=== PATIENT | female | born 1950 | race Caucasian/White ===

== ENCOUNTER → 2017-06-28 08:54 | Outpatient (POV) | payer MEDICARE, OTHER, SELFPAY | PROVIDERS: Visit Provider Physician Assistant | DX: Z00.00 Encounter for general adult medical examination without abnormal findings (principal) ==

== ENCOUNTER → 2017-09-27 10:02 | Outpatient (POV) | payer MEDICARE, OTHER, SELFPAY | PROVIDERS: Family Provider Internal Medicine; Visit Provider Physician Assistant | DX: Z00.00 Encounter for general adult medical examination without abnormal findings (principal) ==

== ENCOUNTER → 2017-11-30 09:39 | Outpatient (CLI) | payer MEDICARE, OTHER, SELFPAY ==
--- NOTE | 2017-11-30 09:49 | CT_ITS ---
CT abdomen w con CLINICAL INDICATION: Follow-up pancreatic lesion ITS.REASON: FU PANCREATIC CYST,EPIGASTIC PAIN ORDERING PHYSICIAN: Farooq Lee PATIENT AGE: 67 years COMPARISON: 04/23/2017 TECHNIQUE: Axial images obtained with sagittal and coronal reformats. All CT scans at the facility use one or more dose reduction, viz: automated exposure control; ma/kV adjustment per patient size (including targeted exams where dose is matched to indication; i.e. head); or iterative reconstruction technique. PROCEDURE: Oral Contrast: None IV Contrast: 75 mL's of Isovue-370. FINDINGS: Lung bases are clear. Prior cholecystectomy. No focal liver lesion. The spleen, adrenal glands, and kidneys have an unremarkable appearance. There is mild prominence of the common bile duct measuring up to 9 mm not significant changed and may be secondary to the previous cholecystectomy. There is a stable isodensity in the pancreas at the junction of the pancreatic tail and body which measures 6 x 9 mm unchanged from previous exam. No new lesions are evident. No intestinal obstruction or free air. No abdominal mass or abnormal fluid collection. There are some small lymph nodes in the right lower quadrant are stable. IMPRESSION: Stable CT appearance of the abdomen no change in the small cystic lesion of the pancreas probably benign
== END ==
PROVIDERS: Family Provider Internal Medicine; PCP Internal Medicine; Visit Provider Internal Medicine
DX: K86.2 Cyst of pancreas (principal); R10.13 Epigastric pain
CPT/HCPCS: 74160; Q9967

== ENCOUNTER → 2018-01-18 10:09 | Outpatient (CLI) | payer MEDICARE, OTHER, SELFPAY ==
--- NOTE | 2018-01-18 10:16 | XR_ITS ---
XR chest 2V HISTORY: Chest pain ITS.REASON: THORACIC BACK PAIN ORDERING PHYSICIAN: Farooq Lee PATIENT AGE: 67 years COMPARISON: 08/01/2012 FINDINGS: The cardiomediastinal silhouette and pulmonary vascularity are within normal limits. The lungs are clear without infiltrates, suspicious nodules, or pleural effusions. No acute bony abnormalities. There is evidence of old granulomatous disease IMPRESSION: No acute finding
--- NOTE | 2018-01-18 10:16 | XR_ITS ---
EXAM: XR thoracic spine 3V HISTORY: ITS.REASON: THORACIC BACK PAIN Comparison: 08/01/2012 FINDINGS: There is mild lower thoracic scoliosis convex left. Mild degenerative disc disease is present in the mid and upper thoracic spine. No acute fracture or dislocation is evident. No lytic or blastic change. IMPRESSION: Degenerative changes mid and upper thoracic spine with minimal dextroscoliosis
== END ==
PROVIDERS: PCP Internal Medicine; Visit Provider Internal Medicine
DX: M54.6 Pain in thoracic spine (principal)
CPT/HCPCS: 71046; 72072

== ENCOUNTER → 2018-02-21 08:56 | Outpatient (CLI) | payer MEDICARE, OTHER, SELFPAY ==
--- NOTE | 2018-02-21 09:11 | MR_ITS ---
MR abdomen wo/w con HISTORY: Follow-up pancreatic mass ITS.REASON: MASS OF PANCREAS ORDERING PHYSICIAN: Alejandra Coburn PATIENT AGE: 67 years Comparison: 11/30/2017, 04/23/2017, 01/06/2016 TECHNIQUE: Standard multiplanar multiecho sequences are performed without and with gadolinium enhancement or. MRCP also performed FINDINGS: There is a cystic lesion once again noted in the body of the pancreas. This is well-circumscribed and measures 8 x 6 mm. This does not appear to communicate with the pancreatic duct. The pancreatic duct is not dilated. This lesion does not enhance and demonstrates cystic characteristics on all imaging sequences. No other significant anomalies are evident. There has been a prior cholecystectomy. The common bile duct is slightly prominent at 10 mm and may be due to post cholecystectomy ectasia. MRCP images show mild prominence of the intra and extrahepatic biliary tree. The distal common bile duct tapers normally with no internal filling defects evident. The pancreatic duct is not dilated. IMPRESSION: 1. Benign-appearing 8 x 6 mm cystic lesion of the pancreas not significantly changed dating back to 01/06/2016. 2. Status post cholecystectomy with ectasia of the intra and nectar hepatic biliary radicles. No common bile duct lesions evident.
[2018-02-21 09:24] LABS: Blood Urea Nitrogen 11 mg/dL (7-18); Creatinine,Serum 1.18 mg/dL (0.55-1.02); Estimated Glomerular Filt Rate 46 ml/min (>60); GFR (African American) 55 ML/MIN (>60)
--- NOTE | 2018-02-21 11:41 | HMH.ITSHM ---
BENZAPRIL PRILOSEC BABY ASPIRIN
== END ==
PROVIDERS: Family Provider Internal Medicine; PCP Internal Medicine; Visit Provider Nurse Practitioner Acute Care
DX: R19.09 Other intra-abdominal and pelvic swelling, mass and lump (principal)
CPT/HCPCS: 36415; 74183; 82565; 84520; A9576

== ENCOUNTER → 2018-02-28 13:15 | Outpatient (CLI) | payer MEDICARE, OTHER, SELFPAY ==
[2018-02-28 14:46] LABS: Basophils % 0.4 % (0.1-2.0); Eosinophils # 0.1 K/mm3 (0.0-0.4); Eosinophils % 1.5 % (0.1-12.0); Hematocrit 39.6 % (37.0-47.0); Hemoglobin 13.3 g/dL (12.2-16.2); Lymphocytes # 1.9 K/mm3 (0.7-4.5); Lymphocytes % 24.4 K/mm3 (10-50); Mean Corpuscular HGB Conc 33.6 g/dL (31.8-35.4); Mean Corpuscular Hemoglobin 30.3 pg (27.0-31.2); Mean Corpuscular Volume 90.1 fl (81-99); Mean Platelet Volume 7.6 fl (7.4-10.4); Monocytes # 0.4 K/mm3 (0.1-1.0); Monocytes % 5.4 % (1.7-9.3); Neutrophils # 5.3 K/mm3 (1.8-7.8); Neutrophils % 68.2 % (37.0-80.0); Platelet Count 204 K/mm3 (142-424); Red Blood Count 4.39 M/mm3 (4.20-5.40); White Blood Count 7.7 K/mm3 (4.8-10.8)
[2018-02-28 16:27] LABS: Alanine Aminotransferase 17 U/L (12-78); Albumin Level 4.5 gm/dL (3.4-5.0); Albumin/Globulin Ratio 1.6 (1.1-1.8); Alkaline Phosphatase 61 U/L (46-116); Amylase 88 U/L (25-125); Anion Gap 13.2 mEq/L (5-15); Aspartate Amino Transferase 12 U/L (15-37); Bilirubin,Total 0.7 mg/dL (0.2-1.0); Blood Urea Nitrogen 14 mg/dL (7-18); Calcium 9.5 mg/dL (8.5-10.1); Carbon Dioxide 28 mmol/L (21.0-32.0); Chloride 100 mmol/L (98-107); Creatinine,Serum 1.17 mg/dL (0.55-1.02); Estimated Glomerular Filt Rate 46 ml/min (>60); GFR (African American) 56 ML/MIN (>60); Globulin 2.9 gm/dl (1.3-3.2); Glucose 83 mg/dL (74-106); Lipase 214 u/L (73-393); Potassium 4.2 mmoL/L (3.5-5.1); Sodium 137 mmol/L (136-145); Total Protein,Serum 7.4 gm/dL (6.4-8.2)
[2018-03-04 10:03] LABS: CA 19-9 1 U/mL (0-35)
== END ==
PROVIDERS: PCP Internal Medicine; Visit Provider Nurse Practitioner Acute Care
DX: R19.09 Other intra-abdominal and pelvic swelling, mass and lump (principal); Z80.0 Family history of malignant neoplasm of digestive organs
CPT/HCPCS: 36415; 80053; 82150; 83690; 85025; 86316

== ENCOUNTER → 2018-05-09 09:48 | Outpatient (POV) | payer MEDICARE, OTHER, SELFPAY ==
[2018-05-09 14:05] LABS: Basophils % 0.5 % (0.1-2.0); Eosinophils # 0.1 K/mm3 (0.0-0.4); Eosinophils % 1.1 % (0.1-12.0); Hematocrit 40.9 % (37.0-47.0); Hemoglobin 13.3 g/dL (12.2-16.2); Lymphocytes # 1.4 K/mm3 (0.7-4.5); Lymphocytes % 21.8 % (10-50); Mean Corpuscular HGB Conc 32.4 g/dL (31.8-35.4); Mean Corpuscular Hemoglobin 28.5 pg (27.0-31.2); Mean Corpuscular Volume 87.8 fl (81-99); Mean Platelet Volume 7.9 fl (7.4-10.4); Monocytes # 0.3 K/mm3 (0.1-1.0); Monocytes % 4.6 % (1.7-9.3); Neutrophils # 4.6 K/mm3 (1.8-7.8); Platelet Count 234 K/mm3 (142-424); Red Blood Count 4.66 M/mm3 (4.20-5.40); Red Cell Distribution Width 12.6 % (11.5-17.5); White Blood Count 6.4 K/mm3 (4.8-10.8)
[2018-05-09 14:42] LABS: Alanine Aminotransferase 24 U/L (12-78); Albumin Level 4.4 gm/dL (3.4-5.0); Albumin/Globulin Ratio 1.5 (1.1-1.8); Alkaline Phosphatase 61 U/L (46-116); Amylase 83 U/L (25-115); Anion Gap 14.1 mEq/L (5-15); Aspartate Amino Transferase 14 U/L (15-37); Bilirubin,Total 0.7 mg/dL (0.2-1.0); Blood Urea Nitrogen 11 mg/dL (7-18); Calcium 9.5 mg/dL (8.5-10.1); Carbon Dioxide 29 mmol/L (21.0-32.0); Chloride 99 mmol/L (98-107); Creatinine,Serum 1.09 mg/dL (0.55-1.02); Estimated Glomerular Filt Rate 50 ml/min (>60); GFR (African American) 60 ML/MIN (>60); Glucose 92 mg/dL (74-106); Lipase 183 u/L (73-393); Potassium 4.1 mmoL/L (3.5-5.1); Sodium 138 mmol/L (136-145); Total Protein,Serum 7.4 gm/dL (6.4-8.2)
== END ==
PROVIDERS: Visit Provider Nurse Practitioner Acute Care
DX: R10.11 Right upper quadrant pain (principal)
CPT/HCPCS: 36415; 80053; 82150; 83690; 85025

== ENCOUNTER → 2018-05-13 07:52 | Outpatient (CLI) | payer MEDICARE, OTHER, SELFPAY ==
--- NOTE | 2018-05-13 07:55 | US_ITS ---
US abdomen limited History:Right upper quadrant pain Ordering Physician:Alejandra Coburn Patient Age: 68 years Comparison:02/21/2018 Findings: Pancreas:Unremarkable. No obvious mass or abnormal fluid collection. No ductal dilatation. Cystic pancreatic lesion seen on recent MRI is not well demonstrated likely due to technical factors Liver:No focal liver lesions demonstrated. Homogeneous echogenicity. No intrahepatic biliary ductal dilatation evident Right Kidney:Unremarkable. Normal size and echogenicity. No hydronephrosis Gallbladder:There has been a prior cholecystectomy. The common bile duct is somewhat prominent at 9 mm having a similar appearance on MRI of 02/21/2018 Impression: 1. Prior cholecystectomy with mildly prominent common bile duct. 2. Otherwise negative right upper quadrant ultrasound
== END ==
PROVIDERS: PCP Nurse Practitioner Acute Care; Visit Provider Nurse Practitioner Acute Care
DX: R10.13 Epigastric pain (principal)
CPT/HCPCS: 76705

== ENCOUNTER → 2018-06-27 14:44 | Outpatient (POV) | payer MEDICARE, OTHER, SELFPAY | PROVIDERS: Visit Provider Nurse Practitioner Acute Care | DX: Z00.00 Encounter for general adult medical examination without abnormal findings (principal) ==

== ENCOUNTER → 2018-08-04 15:30 | Outpatient (CLI) | payer MEDICARE, OTHER, SELFPAY ==
--- NOTE | 2018-08-04 15:34 | MM_ITS ---
MM Dig screening mamm BI w/CAD CAD Screening COMPARISON: Digital mammograms with CAD 12/23/2016 and 11/25/2015 INDICATION: There is no personal or family history of breast cancer. There has been previous biopsy left breast for benign disease. TECHNIQUE: Standard CC and MLO images were obtained. R2 CAD reviewed. FINDINGS: Moderate diffuse scattered fibroglandular densities are seen throughout both breasts. There is a biopsy clip left breast there is a mole marker left breast.. There is no suspicious lesion and there are no suspicious microcalcifications. IMPRESSION: Fibrofatty parenchyma no suspicious lesion seen BI-RADS Category: 2 Benign Finding(s) RECOMMENDED FOLLOW-UP: 1YR - 1 YEAR FOLLOW-UP (A letter has been sent to the patient regarding results of the study.)
== END ==
PROVIDERS: PCP Internal Medicine; Visit Provider Internal Medicine
DX: Z12.31 Encounter for screening mammogram for malignant neoplasm of breast (principal)
CPT/HCPCS: 77067

== ENCOUNTER → 2018-10-25 14:07 | Outpatient (POV) | payer MEDICARE, OTHER, SELFPAY | PROVIDERS: Visit Provider Dermatology | DX: Z00.00 Encounter for general adult medical examination without abnormal findings (principal) ==

== ENCOUNTER → 2019-08-07 08:41 | Outpatient (POV) | payer MEDICARE, OTHER, SELFPAY | PROVIDERS: PCP Internal Medicine; Visit Provider Nurse Practitioner Family | DX: Z00.00 Encounter for general adult medical examination without abnormal findings (principal) ==

== ENCOUNTER → 2019-08-07 09:45 | Outpatient (CLI) | payer MEDICARE, OTHER, SELFPAY ==
--- NOTE | 2019-08-07 09:48 | MM_ITS ---
PROCEDURE: MM DIG SCREENING MAMM BI W/CAD DIGITAL BREAST TOMOSYNTHESIS INCLUDED Patient Age:69Y CLINICAL INDICATION: SCREENING no hormones. No new complaints noncontributory family history COMPARISON: [facility] DIGITAL MAMM-SCREEN BILATERAL from 09/22/2011 DMDXUAVL DIG MAMM-DX UNI ADD VIEWS-LT from 10/06/2011 DMDXUL DIG MAMM-DX UNILATERAL-LT from 10/21/2011 [facility] DIGITAL MAMM-SCREEN BILATERAL from 09/28/2012 [facility] DIG MAMM-SCREEN PARVEZ from 11/01/2013 DMSB DIG MAMM-SCREEN PARVEZ from 11/23/2014 [facility] DIG MAMM-SCREEN PARVEZ from 11/25/2015 DMDXUAVR DIG MAMM-DX UNI ADD VIEWS-RT from 12/03/2015 [facility] DIG MAMM-SCREEN PARVEZ W/CAD from 12/23/2016 [facility] MM Dig screening mamm BI w/CAD from 08/04/2018 TECHNIQUE: Standard CC and MLO images were obtained. R2 CAD reviewed. Digital breast tomosynthesis included FINDINGS: Right breast is stable with no new areas of concern. Left breast: Previous percutaneous biopsy with small metallic marker at the medial inferior left breast associated with some minimal scarring Moving medial and slight anterior from metallic biopsy there is a longstanding ovoid density. It appears overall stable size. Its margins are not well seen on the standard CC view but but better defined on the CC tomosynthesis view appear more compatible with a previous study; overall compatible and adequate stable since previous studies from 2015, 2014.. Follow-up would be a adequate . Other areas of minimal nodularity in the left breast laterally appear similar to studies dating back to 2014 and and I believe can be followed safely followed safely. I would encourage in emphasize a follow-up bilateral mammogram in 1 year IMPRESSION: No new findings of significant concern. Bilateral follow-up 1 year would be recommended and should be encouraged/emphasized Stable right breast but no new features of concern.. Left breast: Previous biopsy medial breast with areas of nodularity similar to studies dating back to 2014 and 2015 BI-RAD Category: FOLLOW-UP: (A letter has been sent to the patient regarding results of the study.) Dictated by: Gordon Dunlap MD 08/10/2019 22:36 Electronically signed by Gordon Dunlap MD in [place] 08/10/2019 22:36
[2019-08-07 13:58] LABS: Alanine Aminotransferase 12 U/L (12-78); Albumin Level 4.5 g/dl (3.5-5.0); Albumin/Globulin Ratio 1.7 (1.1-1.8); Alkaline Phosphatase 58 U/L (38-126); Amylase 115 U/L (30-110); Anion Gap 11.5 mEq/L (5-15); Aspartate Amino Transferase 24 U/L (14-36); Bilirubin,Total 0.5 mg/dl (0.2-1.3); Blood Urea Nitrogen 15 mg/dl (7-17); Carbon Dioxide 30 mmol/L (22.0-30.0); Chloride 97 mmol/L (98-107); Estimated Glomerular Filt Rate 55 ml/min (>60); GFR (African American) 67 ML/MIN (>60); Globulin 2.6 g/dL (1.3-3.2); Glucose 89 mg/dl (74-100); Lipase 223 U/L (23-300); Potassium 4.5 mmoL/L (3.5-5.1); Sodium 134 mmol/L (136-145); Total Protein,Serum 7.1 g/dl (6.3-8.2)
== END ==
PROVIDERS: Nurse Practitioner Family; PCP Internal Medicine; Visit Provider Internal Medicine
DX: Z12.31 Encounter for screening mammogram for malignant neoplasm of breast (principal); R19.09 Other intra-abdominal and pelvic swelling, mass and lump; R10.13 Epigastric pain
CPT/HCPCS: 36415; 77063; 77067; 80053; 82150; 83690

== ENCOUNTER → 2019-08-11 09:39 | Outpatient (CLI) | payer MEDICARE, OTHER, SELFPAY ==
--- NOTE | 2019-08-11 09:42 | MR_ITS ---
PROCEDURE: MR ABDOMEN WO/W CON CLINICAL INDICATION: FHX PANCREATIC CANCER, MASS OF PANCREAS Follow-up pancreatic lesion. Family history of pancreatic cancer COMPARISON: ABDW CT abdomen w con from 11/30/2017 ABDWW MR abdomen wo/w con from 02/21/2018 TECHNIQUE: Routine multiplanar multi echo sequences are performed without and with gadolinium enhancement. FINDINGS: There is once again noted a benign-appearing cystic lesion at the junction of the body and the tail the pancreas measuring approximately 8 mm not significantly changed. No pancreatic ductal dilatation is evident. The pancreas has an otherwise unremarkable appearance. There is a small duodenal diverticulum projecting toward the head of the pancreas. There has been a prior cholecystectomy with ectasia of the common bile duct measuring up to 8 mm not significantly changed. There is mild degree of motion artifact which does somewhat obscure fine detail. The liver, spleen, adrenal glands, and kidneys have an unremarkable appearance. IMPRESSION: No change in the benign-appearing cystic lesion of the junction of the body and tail the pancreas at 8 mm consistent with a benign-appearing pancreatic cyst. Prior cholecystectomy with biliary ectasia not significantly changed Dictated by: Marques Corado MD 08/15/2019 08:23 Electronically signed by Marques Corado MD in [place] 08/15/2019 08:23
== END ==
PROVIDERS: PCP Internal Medicine; Visit Provider Nurse Practitioner Family
DX: R10.13 Epigastric pain (principal); R19.09 Other intra-abdominal and pelvic swelling, mass and lump; Z80.0 Family history of malignant neoplasm of digestive organs
CPT/HCPCS: 74183; A9576

== ENCOUNTER 2020-02-02 10:18 | Emergency (ER) | payer MEDICARE, OTHER, SELFPAY ==
[2020-02-02 10:19] VITALS: BP 187/89; PULSE 88; RESP 16; TEMP 36.6; O2SAT 99; BMI 21.7
--- NOTE | 2020-02-02 10:33 | HMH.EDGENADL ---
ED Disposition Clinical Impression: Right lower quadrant abdominal pain Urinary tract infection Qualifiers: Urinary tract infection type: acute pyelonephritis Qualified Code(s): N10 - Acute pyelonephritis Disposition: Home, Self-Care Condition on Discharge: Good Instructions: DI for Urinary Tract Infection (UTI), DI for Abdominal Pain-Adult Additional Instructions: Omnicef as prescribed. Tylenol or ibuprofen for pain. Additional instructions for URINARY TRACT INFECTION: See your physician in 2-3 days for follow up and culture results. Return immediately if you have an uncontrollable fever greater than 102 degrees, severe back or abdominal pain, inability to urinate, or repetitive vomiting. Additional instructions for ABDOMINAL PAIN: See your physician as soon as possible for further evaluation. Return immediately if worsening abdominal pain, vomiting, shortness of breath, fever, vomiting of blood or abdominal distention. Prescriptions: Cefdinir [Omnicef 300mg Capsule] 300 mg PO BID #20 cap Prescription Printed Referrals: Farooq Lee [Primary Care Provider] - - Critical Care Critical Care Time: No Attestation: On , the high probability of a clinically significant, sudden or life threatening deterioration of the following system(s) required my full and direct attention, intervention and personal management. The time I documented below is in addition to time spent performing reported procedures but includes the following listed in this critical care notation. Medical Decision Making - Medical Records Medical records reviewed: Yes: I reviewed the patient's medical records. - Med Inquiry Pt receiving controlled substance: No Vital Signs: 02/02/20 10:19 02/02/20 10:49 02/02/20 11:51 Temperature 98 F Temperature Source Oral Pulse Rate [Left Radial] 88 78 69 Respiratory Rate 16 Blood Pressure [Right Arm] 187/89 H 185/69 H 190/72 H Blood Pressure Mean [Right Arm] 121 107 111 Blood Pressure Source [Right Arm] Automatic Cuff Blood Pressure Position [Right Arm] Sitting Supine 02 Sat by Pulse Oximetry 99 98 99 Oxygen Delivery Method Room Air Room Air Room Air - Lab Data Lab results reviewed: Yes: I reviewed the patient's lab results. Lab Results 02/02/20 10:20: Urine Color Yellow, Urine Appearance Clear, Urine pH 7.0, Ur Specific [place] 1.010, Urine Protein Negative, Urine Glucose (UA) Negative, Urine Ketones Negative, Urine Blood Trace-i, Urine Nitrate Negative, Urine Bilirubin Negative, Urine Urobilinogen 0.2, Ur Leukocyte Esterase 1+ A, Urine RBC 3-5, Urine WBC 10-20, Ur Squamous Epith Cells 5-10, Ur Transition Epith Cell 5-10, Urine Bacteria Trace 02/02/20 10:45: WBC 7.1, RBC 4.42, Hgb 13.6, Hct 39.5, MCV 89.4, MCH 30.7, MCHC 34.3, RDW 13.3, Plt Count 172, MPV 8.1, Neut % (Auto) 73.4, Lymph % (Auto) 19.5, [place] % (Auto) 5.5, Eos % (Auto) 0.8, Baso % (Auto) 0.8, Neut # (Auto) 5.2, Lymph # (Auto) 1.4, [place] # (Auto) 0.4, Eos # (Auto) 0.1, Baso # (Auto) 0.1 02/02/20 10:45: Sodium 136, Potassium 4.4, Chloride 98, Carbon Dioxide 29, Anion Gap 13.4, BUN 14, Creatinine 1.10 H, Estimated Creat Clear 43, Estimated GFR 49 L, Est GFR ( Amer) 60, Glucose 109 H, Calcium 10.1, Total Bilirubin 0.9, AST 39 H, ALT 19, Alkaline Phosphatase 64, Total Protein 7.6, Albumin 4.8, Globulin 2.8, Albumin/Globulin Ratio 1.7, Lipase 113 Result diagrams: 02/02/20 10:45 02/02/20 10:45 Orders (Tests/Meds): ED MEDICATIONS Generic Name Dose Route Start Last Admin Trade Name Gunnar PRN Reason Stop Dose Admin Ceftriaxone Sodium 1 gm/ 50 mls @ 100 mls/hr 02/02/20 11:28 02/02/20 11:32 Sodium Chloride IV 02/02/20 11:57 100 mls/hr ONCE ONE Administration Protocol ORDERS Category Date Time Status Urine Culture Stat Micro 02/02/20 10:20 Received - CT Data CT Scan: Abdomen, Pelvis Time Received: 11:[address] Reviewed: Yes: I have viewed the radiologist's interpretation Findings
[2020-02-02 10:34] VITALS: BMI 21.7
[2020-02-02 10:42] LABS: Microscopic, Urine URINE MICROSCOPIC (MICROSCOPIC)
[2020-02-02 10:44] LABS: Appearance,Urine CLEAR (Clear); Bilirubin,Urine Negative (Negative); Blood, Urine TRACE-I (Negative); Color,Urine YELLOW (Yellow); Glucose,Urine (UA) Negative (Negative); Ketones,Urine Negative (Negative); Leukocyte Esterase,Urine 1+ (Negative); Nitrate,Urine Negative (Negative); Protein,Urine Negative (Negative); Urobilinogen,Urine 0.2 EU/dl (0.2)
--- NOTE | 2020-02-02 10:45 | CT_ITS ---
PROCEDURE: CT ABDOMEN PELVIS WO CON CLINICAL INDICATION: Right flank pain for 2 days COMPARISON: CT ABDW CT abdomen w con from 11/30/2017 TECHNIQUE: Axial images obtained with sagittal and coronal reformats. All CT scans at the facility use one or more dose reduction, viz: automated exposure control, ma/kV adjustment per patient size (including targeted exams where dose is matched to indication, i.e. head), or iterative reconstruction technique. FINDINGS: Lower thorax: The lower lung metcalf are clear and there is no pleural fluid. Cardiac size is normal. ABDOMEN: Liver: No masses or biliary dilatation. Gallbladder: Post cholecystectomy Pancreas: No masses or peripancreatic fluid collections. Spleen: Spleen is normal in size with a couple of calcified granulomata noted. Adrenals: unremarkable Kidneys/ureters: The kidneys are normal in size uropathy of either kidney. There are no calculi in either kidney. The ureters are difficult to follow into the pelvis due to the lack of IV contrast and large amount of stool. There is a calculus in the right mid pelvis measuring 6 mm likely a phlebolith. ABDOMEN & PELVIS: Stomach bowel: The stomach and small bowel appear grossly normal. There is large amount stool throughout the colon especially transverse colon descending and sigmoid colon and rectum. Peritoneum: No abnormal fluid collections. No obvious inflammatory changes. No free air. Lymph nodes: No enlarged lymph nodes apparent. Vasculature: There is scattered arteriosclerotic calcification of the abdominal aorta and proximal right common iliac artery but there is no aneurysm. Bones: No acute fracture PELVIS: Reproductive: The uterus is normal size and in the midline. There are tiny phleboliths in both sides of the uterus. Bladder: Nondistended. No obvious stones or masses. There is no free Appendix: There are no findings to suggest appendicitis. IMPRESSION: Findings of moderate constipation, no definite renal or ureteral calculi and there is no obstructive uropathy of either kidney Dictated by: Dr. Jason Alonzo MD 02/02/2020 11:31 Dr. Jason Alonzo MD in [place] 02/02/2020 11:31
[2020-02-02 10:49] VITALS: BP 185/69; PULSE 78; O2SAT 98
[2020-02-02 10:54] LABS: Bacteria,Urine Trace /lpf
--- NOTE | 2020-02-02 11:02 | PC.NURSE ---
pt going for CT
[2020-02-02 11:22] LABS: Chloride 98 mmol/L (98-107); Potassium 4.4 mmoL/L (3.5-5.1); Sodium 136 mmol/L (136-145)
[2020-02-02 11:25] LABS: Alanine Aminotransferase 19 U/L (12-78); Albumin Level 4.8 g/dl (3.5-5.0); Albumin/Globulin Ratio 1.7 (1.1-1.8); Alkaline Phosphatase 64 U/L (38-126); Anion Gap 13.4 mEq/L (5-15); Aspartate Amino Transferase 39 U/L (14-36); Bilirubin,Total 0.9 mg/dl (0.2-1.3); Blood Urea Nitrogen 14 mg/dl (7-17); Calcium 10.1 mg/dl (8.4-10.2); Carbon Dioxide 29 mmol/L (22.0-30.0); Creatinine Clearance Estimated 43 mL/min (50-200); Estimated Glomerular Filt Rate 49 ml/min (>60); GFR (African American) 60 ML/MIN (>60); Globulin 2.8 g/dL (1.3-3.2); Glucose 109 mg/dl (74-100); Lipase 113 U/L (23-300); Total Protein,Serum 7.6 g/dl (6.3-8.2)
[2020-02-02 11:26] LABS: Basophils # 0.1 K/mm3 (0-0.2); Basophils % 0.8 % (0.1-2.0); Eosinophils # 0.1 K/mm3 (0.0-0.4); Eosinophils % 0.8 % (0.1-12.0); Hematocrit 39.5 % (37.0-47.0); Hemoglobin 13.6 g/dL (12.2-16.2); Lymphocytes # 1.4 K/mm3 (0.7-4.5); Lymphocytes % 19.5 % (10-50); Mean Corpuscular HGB Conc 34.3 g/dL (31.8-35.4); Mean Corpuscular Hemoglobin 30.7 pg (27.0-31.2); Mean Corpuscular Volume 89.4 fl (81-99); Mean Platelet Volume 8.1 fl (7.4-10.4); Monocytes # 0.4 K/mm3 (0.1-1.0); Monocytes % 5.5 % (1.7-9.3); Neutrophils # 5.2 K/mm3 (1.8-7.8); Neutrophils % 73.4 % (37.0-80.0); Platelet Count 172 K/mm3 (142-424); Red Blood Count 4.42 M/mm3 (4.20-5.40); Red Cell Distribution Width 13.3 % (11.5-17.5); White Blood Count 7.1 K/mm3 (4.8-10.8)
[2020-02-02 11:51] VITALS: BP 190/72; PULSE 69; O2SAT 99
[2020-02-02 11:59] VITALS: BP 180/79; PULSE 80; RESP 18; TEMP 36.7; O2SAT 100
== END 2020-02-02 12:03 | disposition home or self-care (01) ==
PROVIDERS: Emergency Provider Emergency Medicine; PCP Internal Medicine
DX: N10 Acute pyelonephritis (principal); K59.00 Constipation, unspecified; I10 Essential (primary) hypertension; Z90.49 Acquired absence of other specified parts of digestive tract; Z90.09 Acquired absence of other part of head and neck; Z79.899 Other long term (current) drug therapy
CPT/HCPCS: 74176; 80053; 81001; 83690; 85025; 87086; 87088; 87186; 96367; 99284

== ENCOUNTER → 2020-02-05 09:37 | Outpatient (POV) | payer MEDICARE, OTHER, SELFPAY | PROVIDERS: Visit Provider Nurse Practitioner Family | DX: Z00.00 Encounter for general adult medical examination without abnormal findings (principal) ==

== ENCOUNTER → 2020-07-08 09:31 | Outpatient (POV) | payer MEDICARE, OTHER, SELFPAY | PROVIDERS: Visit Provider Nurse Practitioner Family | DX: Z00.00 Encounter for general adult medical examination without abnormal findings (principal) ==

== ENCOUNTER → 2020-09-10 10:08 | Outpatient (POV) | payer MEDICARE, OTHER, SELFPAY | PROVIDERS: Visit Provider Dermatology | DX: Z00.00 Encounter for general adult medical examination without abnormal findings (principal) ==

== ENCOUNTER → 2020-12-24 10:51 | Outpatient (POV) | payer MEDICARE, OTHER, SELFPAY | PROVIDERS: Visit Provider Dermatology | DX: Z00.00 Encounter for general adult medical examination without abnormal findings (principal) ==

== ENCOUNTER → 2021-05-19 15:06 | Outpatient (CLI) | payer MEDICARE, OTHER, SELFPAY ==
[2021-05-19 16:28] LABS: Strep Scrn Group A (Rapid) Negative (Negative)
== END ==
PROVIDERS: PCP Internal Medicine; Visit Provider Internal Medicine
DX: Z20.822 Contact with and (suspected) exposure to COVID-19 (principal)
CPT/HCPCS: 87430; C9803; U0003; U0005

== ENCOUNTER → 2021-05-26 16:13 | Outpatient (CLI) | payer MEDICARE, OTHER, SELFPAY ==
[2021-05-26 17:25] LABS: Alanine Aminotransferase 15 U/L (12-78); Albumin Level 4.5 g/dl (3.5-5.0); Alkaline Phosphatase 72 U/L (38-126); Anion Gap 13.3 mEq/L (5-15); Aspartate Amino Transferase 28 U/L (14-36); Bilirubin,Total 0.4 mg/dl (0.2-1.3); Blood Urea Nitrogen 10 mg/dl (7-17); Calcium 9.7 mg/dl (8.4-10.2); Carbon Dioxide 33 mmol/L (22.0-30.0); Chloride 93 mmol/L (98-107); Chol/HDL Ratio 2.3 (1-3.5); Cholesterol 166 mg/dl (140-200); Estimated Glomerular Filt Rate 62 ml/min (>60); GFR (African American) 75 ML/MIN (>60); Globulin 2.3 g/dL (1.3-3.2); Glucose 88 mg/dl (74-100); HDL Cholesterol 73 mg/dl (40-60); Potassium 4.3 mmoL/L (3.5-5.1); Sodium 135 mmol/L (136-145); Total Protein,Serum 6.8 g/dl (6.3-8.2); Triglycerides 84 mg/dl (30-150); VLDL Cholesterol 17 mg/dL (0-40)
[2021-05-26 17:36] LABS: Direct LDL Cholesterol 68.67 mg/dL (100-129)
== END ==
PROVIDERS: Visit Provider Internal Medicine
DX: I10 Essential (primary) hypertension (principal); E78.5 Hyperlipidemia, unspecified
CPT/HCPCS: 80053; 80061

== ENCOUNTER → 2021-11-24 20:50 | Outpatient (CLI) | payer MEDICARE, OTHER, SELFPAY ==
[2021-11-24 21:04] LABS: Basophils % 0.6 % (0.1-2.0); Eosinophils # 0.1 K/mm3 (0.0-0.4); Eosinophils % 2.5 % (0.1-12.0); Hemoglobin 13.2 g/dL (12.2-16.2); Lymphocytes # 1.5 K/mm3 (0.7-4.5); Lymphocytes % 25.9 % (10-50); Mean Corpuscular HGB Conc 34.7 g/dL (31.8-35.4); Mean Corpuscular Hemoglobin 30.3 pg (27.0-31.2); Mean Corpuscular Volume 87.4 fl (81-99); Mean Platelet Volume 10.1 fl (7.4-10.4); Monocytes # 0.4 K/mm3 (0.1-1.0); Monocytes % 7.4 % (1.7-9.3); Neutrophils # 3.6 K/mm3 (1.8-7.8); Neutrophils % 63.6 % (37.0-80.0); Platelet Count 186 K/mm3 (142-424); Red Blood Count 4.34 M/mm3 (4.20-5.40); Red Cell Distribution Width 12.5 % (11.5-17.5); White Blood Count 5.7 K/mm3 (4.8-10.8)
[2021-11-24 21:35] LABS: Chloride 100 mmol/L (98-107); Sodium 134 mmol/L (136-145)
[2021-11-24 21:36] LABS: Potassium 4.6 mmoL/L (3.5-5.1)
[2021-11-24 21:38] LABS: Alanine Aminotransferase 19 U/L (12-78); Albumin Level 4.5 g/dl (3.5-5.0); Alkaline Phosphatase 66 U/L (38-126); Anion Gap 10.6 mEq/L (5-15); Aspartate Amino Transferase 33 U/L (14-36); Bilirubin,Total 0.7 mg/dl (0.2-1.3); Blood Urea Nitrogen 12 mg/dl (7-17); Carbon Dioxide 28 mmol/L (22.0-30.0); Cholesterol 165 mg/dl (140-200); Estimated Glomerular Filt Rate 55 ml/min (>60); GFR (African American) 66 ML/MIN (>60); Globulin 2.3 g/dL (1.3-3.2); Total Protein,Serum 6.8 g/dl (6.3-8.2); Triglycerides 55 mg/dl (30-150); VLDL Cholesterol 11 mg/dL (0-40)
[2021-11-24 21:39] LABS: Calcium 9.5 mg/dl (8.4-10.2); Chol/HDL Ratio 2.1 (1-3.5); Glucose 69 mg/dl (74-100); HDL Cholesterol 78 mg/dl (40-60)
[2021-11-24 21:50] LABS: Direct LDL Cholesterol 63.57 mg/dL (100-129)
== END ==
PROVIDERS: PCP Internal Medicine; Visit Provider Internal Medicine
DX: I10 Essential (primary) hypertension (principal); E78.5 Hyperlipidemia, unspecified; D64.9 Anemia, unspecified
CPT/HCPCS: 80053; 80061; 85025

== ENCOUNTER → 2022-04-14 09:11 | Outpatient (POV) | payer MEDICARE, OTHER, SELFPAY | PROVIDERS: Visit Provider Dermatology | DX: Z00.00 Encounter for general adult medical examination without abnormal findings (principal) ==

== ENCOUNTER → 2022-05-25 10:14 | Outpatient (CLI) | payer MEDICARE, OTHER, SELFPAY ==
--- NOTE | 2022-05-25 10:18 | CT_ITS ---
FINAL REPORT TECHNIQUE: Axial images through the abdomen and pelvis were performed without contrast.This study was performed with techniques to keep radiation doses as low as reasonably achievable, (ALARA). Individualized dose reduction techniques using automated exposure control or adjustment of mA and/or kV according to the patient's size were employed. CLINICAL HISTORY: RLQ PAIN COMPARISON: 02/02/2020 FINDINGS: ABDOMEN: The lung bases demonstrate a stable, 3 mm nodule at the lateral left lung base. The heart size is normal. Limited images of the liver are unremarkable. Patient is status post cholecystectomy. The spleen is normal. No adrenal mass is identified. The aorta is normal in caliber. There is no significant free fluid or adenopathy. There is no nephrolithiasis. There is no hydronephrosis. There are moderate vascular calcifications. A moderate to large amount of stool seen throughout the colon. PELVIS: The appendix is normal. The urinary bladder is unremarkable. There is no significant free fluid or adenopathy. IMPRESSION: No hydronephrosis or nephrolithiasis. Constipation. Reviewed, Interpreted and Dictated by Miko Mcghee III, MD Transcribed by Shaylee Chris Authenticated and [facility]
== END ==
PROVIDERS: PCP Internal Medicine; Visit Provider Internal Medicine
DX: R10.31 Right lower quadrant pain (principal)
CPT/HCPCS: 74176

== ENCOUNTER → 2022-05-26 14:32 | Outpatient (CLI) | payer MEDICARE, OTHER, SELFPAY ==
[2022-05-26 16:01] LABS: Basophils # 0.1 K/mm3 (0-0.2); Basophils % 1.3 % (0.1-2.0); Eosinophils # 0.1 K/mm3 (0.0-0.4); Eosinophils % 1.9 % (0.1-12.0); Hematocrit 39.8 % (37.0-47.0); Hemoglobin 13.2 g/dL (12.2-16.2); Lymphocytes # 1.7 K/mm3 (0.7-4.5); Lymphocytes % 22.9 % (10-50); Mean Corpuscular HGB Conc 33.2 g/dL (31.8-35.4); Mean Corpuscular Hemoglobin 30.2 pg (27.0-31.2); Mean Platelet Volume 9.4 fl (7.4-10.4); Monocytes # 0.4 K/mm3 (0.1-1.0); Monocytes % 5.9 % (1.7-9.3); Neutrophils # 5.1 K/mm3 (1.8-7.8); Platelet Count 206 K/mm3 (142-424); Red Blood Count 4.37 M/mm3 (4.20-5.40); Red Cell Distribution Width 13.2 % (11.5-17.5); White Blood Count 7.5 K/mm3 (4.8-10.8)
[2022-05-26 17:25] LABS: Alanine Aminotransferase 16 U/L (12-78); Albumin Level 4.8 g/dl (3.5-5.0); Alkaline Phosphatase 85 U/L (38-126); Anion Gap 12.6 mEq/L (5-15); Aspartate Amino Transferase 28 U/L (14-36); Bilirubin,Total 0.6 mg/dl (0.2-1.3); Blood Urea Nitrogen 17 mg/dl (7-17); Carbon Dioxide 30 mmol/L (22.0-30.0); Chloride 101 mmol/L (98-107); Chol/HDL Ratio 2.3 (1-3.5); Cholesterol 192 mg/dl (140-200); Estimated Glomerular Filt Rate 49 ml/min (>60); GFR (African American) 59 ML/MIN (>60); Globulin 2.4 g/dL (1.3-3.2); Glucose 77 mg/dl (74-100); HDL Cholesterol 85 mg/dl (40-60); Potassium 5.6 mmoL/L (3.5-5.1); Sodium 138 mmol/L (136-145); Total Protein,Serum 7.2 g/dl (6.3-8.2); Triglycerides 51 mg/dl (30-150); VLDL Cholesterol 10 mg/dL (0-40)
[2022-05-26 17:54] LABS: Direct LDL Cholesterol 75.61 mg/dL (100-129)
== END ==
PROVIDERS: PCP Internal Medicine; Visit Provider Internal Medicine
DX: I10 Essential (primary) hypertension (principal); E78.2 Mixed hyperlipidemia; D64.9 Anemia, unspecified; N18.2 Chronic kidney disease, stage 2 (mild)
CPT/HCPCS: 80053; 80061; 85025

== ENCOUNTER 2022-05-28 18:25 | Observation (INO) | payer MEDICARE, OTHER, SELFPAY ==
[2022-05-28] VITALS (11 sets, daily range): BP systolic 192–220; BP diastolic 74–97; PULSE 67–90; RESP 14–18; TEMP 36.6; O2SAT 95–98; BMI 21.4
--- NOTE | 2022-05-28 18:29 | ECG_ITS ---
APPROVED REPORT Exam: Resting ECG HR:74 bpm ECG Measurements Heart Rate 74 AXES WV 172 P 77 QRSd 85 QRS 63 QT 366 T 68 QTc 393 Conclusion SINUS RHYTHM NORMAL ECG UNCONFIRMED REPORT Electronically signed by : Ga Ashley MD 05/29/2022 16:45:03
[2022-05-28 18:53] LABS: Basophils # 0.1 K/mm3 (0-0.2); Eosinophils # 0.1 K/mm3 (0.0-0.4); Eosinophils % 1.9 % (0.1-12.0); Hematocrit 38.1 % (37.0-47.0); Hemoglobin 12.9 g/dL (12.2-16.2); Lymphocytes # 2.3 K/mm3 (0.7-4.5); Lymphocytes % 32.5 % (10-50); Mean Corpuscular Hemoglobin 29.9 pg (27.0-31.2); Mean Platelet Volume 8.5 fl (7.4-10.4); Monocytes # 0.4 K/mm3 (0.1-1.0); Monocytes % 5.4 % (1.7-9.3); Neutrophils # 4.3 K/mm3 (1.8-7.8); Neutrophils % 59.1 % (37.0-80.0); Platelet Count 184 K/mm3 (142-424); Red Blood Count 4.33 M/mm3 (4.20-5.40); Red Cell Distribution Width 13.1 % (11.5-17.5); White Blood Count 7.2 K/mm3 (4.8-10.8)
[2022-05-28 18:54] LABS: Chloride 100 mmol/L (98-107); Potassium 3.8 mmoL/L (3.5-5.1); Sodium 135 mmol/L (136-145)
--- NOTE | 2022-05-28 18:56 | CT_ITS ---
PROCEDURE INFORMATION: Exam: CT Head Without Contrast Exam date and time: 05/28/2022 7:15 PM Age: 72 years old Clinical indication: Dizziness TECHNIQUE: Imaging protocol: Computed tomography of the head without contrast. Radiation optimization: All CT scans at this facility use at least one of these dose optimization techniques: automated exposure control; mA and/or kV adjustment per patient size (includes targeted exams where dose is matched to clinical indication); or iterative reconstruction. COMPARISON: No relevant prior studies available. FINDINGS: Brain: Patchy hypoattenuation in the periventricular deep white matter bilaterally. Cerebral ventricles: Enlargement of the ventricles, sulci and cisterns bilaterally. Paranasal sinuses: Mucosal thickening elsewhere within the paranasal sinuses. Fluid in the right sphenoid air cells. Mastoid air cells: Right mastoid fluid. Oral cavity: Torus palatinus. Bones/joints: Unremarkable. No acute fracture. Soft tissues: Unremarkable. IMPRESSION: 1. No evidence for acute intracranial hemorrhage, midline shift or mass effect. 2. Cortical atrophy and chronic periventricular microangiopathy.
[2022-05-28 18:57] LABS: Alanine Aminotransferase 18 U/L (12-78); Albumin Level 4.5 g/dl (3.5-5.0); Albumin/Globulin Ratio 1.9 (1.1-1.8); Alkaline Phosphatase 79 U/L (38-126); Anion Gap 11.8 mEq/L (5-15); Aspartate Amino Transferase 29 U/L (14-36); Bilirubin,Total 0.3 mg/dl (0.2-1.3); Blood Urea Nitrogen 15 mg/dl (7-17); Carbon Dioxide 27 mmol/L (22.0-30.0); Creatinine Clearance Estimated 40 mL/min (50-200); Estimated Glomerular Filt Rate 49 ml/min (>60); GFR (African American) 59 ML/MIN (>60); Globulin 2.4 g/dL (1.3-3.2); Total Protein,Serum 6.9 g/dl (6.3-8.2)
[2022-05-28 18:58] LABS: Calcium 9.5 mg/dl (8.4-10.2); Glucose 119 mg/dl (74-100)
[2022-05-28 19:22] LABS: Troponin I < 0.01 ng/ml (0.00-0.034)
--- NOTE | 2022-05-28 19:32 | XR_ITS ---
PROCEDURE INFORMATION: Exam: XR Chest Exam date and time: 05/28/2022 7:32 PM Age: 72 years old Clinical indication: Shortness of breath and other: Dizzy; Additional info: Dizziness TECHNIQUE: Imaging protocol: Radiologic exam of the chest. Views: 1 view. COMPARISON: CR CXR2V XR chest 2V 01/18/2018 10:19 AM FINDINGS: Lungs: Asymmetric density in the left lung base. Asymmetric density medial right apex is probably brachiocephalic vasculature. Pneumonic consolidation or mass not excluded. Follow-up is recommended. Pleural spaces: Unremarkable. No pleural effusion. No pneumothorax. Heart/Mediastinum: Unremarkable. No cardiomegaly. Vasculature: Calcification within thoracic aorta. Bones/joints: Acromioclavicular arthropathy. Degenerative spondylosis and rotoscoliosis within the spine. IMPRESSION: 1. Left basilar consolidation may reflect developing pneumonia. No abnormalities in the left lung base were demonstrated on a recent CT scan. Follow-up is recommended. 2. Asymmetric density medial right apex is probably brachiocephalic vasculature. Pneumonic consolidation or mass not excluded. Follow-up is recommended.
[2022-05-28 20:05] LABS: Coronavirus 19, PCR Not Detected (NotDetected); Influenza A, PCR Not Detected (NotDetected); Influenza B, PCR Not Detected (NotDetected); Microscopic, Urine URINE MICROSCOPIC (MICROSCOPIC)
[2022-05-28 20:21] LABS: Appearance,Urine CLEAR (Clear); Bilirubin,Urine Negative (Negative); Blood, Urine Negative (Negative); Color,Urine YELLOW (Yellow); Glucose,Urine (UA) Negative (Negative); Ketones,Urine TRACE (Negative); Leukocyte Esterase,Urine Negative (Negative); Nitrate,Urine Negative (Negative); Protein,Urine Negative (Negative); Urobilinogen,Urine 0.2 EU/dl (0.2)
[2022-05-28 20:26] LABS: Bacteria,Urine Trace /lpf
--- NOTE | 2022-05-28 21:47 | HMH.EDDIZZ ---
Discharge Plan Disposition Patient Disposition: Admitted as Observation Chief Complaint: Dizziness Prescriptions Prescriptions: No Action ondansetron HCl 4 MG Tablet 4 mg PO Q6HP PRN (Reason: Nausea) benazepril-hydrochlorothiazide 1 EACH Tablet 40 mg PO DAILY hydrochlorothiazide 12.5 MG Tablet 12.5 mg PO DAILY cefdinir 300 MG capsule 300 mg PO BID Qty: 20 0RF Discharge ED Provider: Vlad Blum HPI General Chief Complaint: Dizziness Stated Complaint: weakness Time Seen by Provider: 05/28/22 21:15 Mode of Arrival: EMS Source of Information: Patient, Spouse, EMS and Medical Record Limitations: No Limitations Description of Symptoms (Recalled from ER Triage Doc. by RN): c/o dizziness, vomiting and high bp. [facility] [place] [facility] [place] [facility] [place] [facility] [place]. Pt denies falling, states she just sit down and then slid onto the floor. Pt states she only feels dizzy and nauseated when she sits up. History of Present Illness HPI Narrative: pt with acute onset of dizzyness with assoc vomiting w/o speech or visual sx and no focal neuro sx- increased with change in position and no recent fever or rash and no trauma - no chest pain and no def arrthymia and no tinnitus MD complaint: dizziness Onset (ago): hour(s) Timing: sudden onset Description: lightheadedness History of similar episodes: No History of trauma: No Severity: moderate Exacerbating factors: movement Related Data Home Medications Medication Instructions Recorded Confirmed benazepril 10 40 mg PO DAILY blood pressure 03/08/18 03/14/18 mg-hydrochlorothiazide 12.5 mg tablet hydrochlorothiazide 12.5 mg tablet 12.5 mg PO DAILY Fluid 03/08/18 03/14/18 ondansetron HCl 4 mg tablet 4 mg PO Q6HP PRN Nausea 03/08/18 03/14/18 Previous Rx's Medication Instructions Recorded cefdinir 300 mg capsule 300 mg PO BID #20 caps 02/02/20 Allergies Allergy/AdvReac Type Severity Reaction Status Date / Time No Known Allergies Allergy Unverified 06/01/17 15:28 [facility] Disclaimer: The information contained in this section may have been updated after the patient was seen, as this information can be updated by other users. Social History Smoking Status: Never smoker alcohol intake: never current occupational status: other Travel in the last 8 weeks: None household members: other housing: other caffeine: No ROS Obtained: Yes All systems reviewed & no additional complaints except as documented Physical Exam General General appearance: alert Head Head exam: normocephalic Eye Eye exam: Present PERRL and EOMI; Absent scleral icterus or nystagmus ENT ENT exam: Present mucous membranes moist and other (no evid of tongue biting ) Neck Neck exam: Present full ROM, trachea midline and other (no def bruit ) Respiratory Respiratory exam: Present normal lung sounds bilaterally; Absent respiratory distress Cardiovascular Cardiovascular exam: Present regular rate, systolic murmur and +S4 Abdominal Exam Abdominal exam: Present soft Extremities Exam Extremities exam: Present full ROM Neurological Exam Neurological exam: Present alert, oriented X3 and CN II-XII intact; Absent motor sensory deficit Psychiatric Psychiatric exam: Present normal affect Skin Skin exam: Absent rash Medical Decision Making Medical Records Medical records reviewed: Yes I reviewed the patient's medical records. Med Inquiry Pt receiving controlled substance: No Vital Signs: 05/28/22 18:25 Temperature 97.8 F Temperature Source Oral Pulse Rate [Left Radial] 80 Respiratory Rate 18 Blood Pressure [Right Arm] 215/95 H Blood Pressure Mean [Right Arm] 135 Blood Pressure Source [Right Arm] Automatic Cuff Blood Pressure Position [Right Arm] Sitting 02 Sat by Pulse Oximetry 98 Oxygen Delivery Method Room Air Lab Data Lab results reviewed: Yes I reviewed the patient's lab results. Lab Results 05/28/22 18:35
--- NOTE | 2022-05-28 21:54 | CT_ITS ---
PROCEDURE INFORMATION: Exam: CTA Neck With Contrast Exam date and time: 05/28/2022 10:22 PM Age: 72 years old Clinical indication: Vertigo TECHNIQUE: Imaging protocol: Computed tomographic angiography of the neck with contrast. 3D rendering (Not supervised by radiologist): MIP and/or 3D reconstructed images were created by the technologist. Radiation optimization: All CT scans at this facility use at least one of these dose optimization techniques: automated exposure control; mA and/or kV adjustment per patient size (includes targeted exams where dose is matched to clinical indication); or iterative reconstruction. Contrast material: ISOVUE; Contrast volume: 100 ml; Contrast route: INTRAVENOUS (IV); COMPARISON: CT HEAD/BRAIN WO CON 05/28/2022 7:15 PM FINDINGS: Right common carotid artery: No stenosis. No dissection or occlusion. Right internal carotid artery: No stenosis of the extracranial segment. No dissection or occlusion. Right external carotid artery: No occlusion or stenosis of the origin. Left common carotid artery: No stenosis. No dissection or occlusion. Left internal carotid artery: No stenosis of the extracranial segment. No dissection or occlusion. Left external carotid artery: No occlusion or stenosis of the origin. Right vertebral artery: No stenosis. No dissection or occlusion. Left vertebral artery: No stenosis. No dissection or occlusion. Soft tissues: Normal. No significant soft tissue swelling. Bones/joints: Uncovertebral hypertrophy and degenerative facet arthropathy result in right foraminal stenosis at C4-C5 and C5-C6. No acute fracture. IMPRESSION: No stenosis or occlusion. REFERENCES: NASCET CRITERIA. The degree of stenosis in the cervical segment of the internal carotid artery is based on NASCET criteria. Normal is no stenosis. Mild is less than 50% stenosis. Moderate is 50-69% stenosis. Severe is 70% to 99% stenosis. Total occlusion is no detectable patent lumen.
--- NOTE | 2022-05-28 21:54 | CT_ITS ---
PROCEDURE INFORMATION: Exam: CTA Head With Contrast, Arteriography Exam date and time: 05/28/2022 10:22 PM Age: 72 years old Clinical indication: Vertigo TECHNIQUE: Imaging protocol: Computed tomographic angiography of the head with contrast. Exam focused on the arteries. 3D rendering (Not supervised by radiologist): MIP and/or 3D reconstructed images were created by the technologist. Radiation optimization: All CT scans at this facility use at least one of these dose optimization techniques: automated exposure control; mA and/or kV adjustment per patient size (includes targeted exams where dose is matched to clinical indication); or iterative reconstruction. Contrast material: ISOVUE; Contrast volume: 100 ml; Contrast route: INTRAVENOUS (IV); COMPARISON: CT HEAD/BRAIN WO CON 05/28/2022 7:15 PM FINDINGS: ANTERIOR CIRCULATION: Right internal carotid artery: Intracranial segment is patent with no significant stenosis. No aneurysm. Right middle cerebral artery: No occlusion or significant stenosis. No aneurysm. Right anterior cerebral artery: No occlusion or significant stenosis. No aneurysm. Left internal carotid artery: Intracranial segment is patent with no significant stenosis. No aneurysm. Left middle cerebral artery: No occlusion or significant stenosis. No aneurysm. Left anterior cerebral artery: No occlusion or significant stenosis. No aneurysm. POSTERIOR CIRCULATION: Right vertebral artery: No occlusion or significant stenosis. No aneurysm. Left vertebral artery: No occlusion or significant stenosis. No aneurysm. Basilar artery: No occlusion or significant stenosis. No aneurysm. Right posterior cerebral artery: No occlusion or significant stenosis. No aneurysm. Left posterior cerebral artery: No occlusion or significant stenosis. No aneurysm. Brain: No definite mass, mass effect, or midline shift. Cerebral ventricles: No ventriculomegaly. Bones/joints: Unremarkable. No acute fracture. Soft tissues: Unremarkable. IMPRESSION: No large vessel stenosis or occlusion.
[2022-05-28 23:30] LABS: Troponin I < 0.01 ng/ml (0.00-0.034)
[2022-05-29] VITALS (10 sets, daily range): BP systolic 141–213; BP diastolic 57–90; PULSE 66–84; RESP 16–18; TEMP 36.4–37.1; O2SAT 96–100; BMI 21.7; BMI 21.4
--- NOTE | 2022-05-29 00:27 | PC.NURSE ---
Patient to be admitted to [facility] to service of Dr. Aquino with acute vertigo.
--- NOTE | 2022-05-29 00:27 | PC.NURSE ---
nilay on phone with hospitalist
--- NOTE | 2022-05-29 00:57 | EXP.HP ---
History of Present Illness *Admission Date: 05/29/22 *Reason for visit:: Vertigo, Nausea *History of present illness: Ms. Estrada is a 72-year-old female with a past medical history that is positive for HTN and anxiety disorder. She presents to [facility] due to an acute onset of dizziness associated with nausea that occurred just prior to presentation. She reports that she was out eating with friends when she became acutely dizzy. A friend that was with her lowered her to the ground so she would not fall. She reports that the dizziness has continued. In the ER, she was noted to be hypertensive with initial blood pressure readings of 215/95. She underwent a CT of the head and Head and Neck CTA that showed no acute findings. Troponin was <0.01. She persisted to have the nausea and dizziness and elevated blood pressure readings in the 180-190 ranges systolic. She was given Clonidine, Meclizine and Antiemetics, but continued to have the symptoms. The patient will be admitted with initial impression: Hypertensive Urgency and Vertigo. She will be given Labetalol, iv fluids, antiemetics, and continued on Meclizine. The plan of care was discussed with patient, her and son at bedside in the ER. All verbalized understanding and agreement with the plan of care. [facility] Disclaimer: The information contained in this section may have been updated after the patient was seen, as this information can be updated by other users. Medical History Anxiety disorder Hypertension Surgical History History of tubal ligation Hx of cholecystectomy Family History (Updated 05/29/22 @ 02:30 by Brenda Gonzalez RN) Pancreatic cancer Mother Brother Sister Social History (Updated 05/29/22 @ 02:32 by Brenda Gonzalez RN) Smoking Status: Never smoker alcohol intake: never current occupational status: other Travel in the last 8 weeks: None household members: other housing: other caffeine: No Review of Systems Review of Systems Review of systems:: pertinent systems reviewed and negative unless documented below Constitutional Constitutional: Reports system reviewed and no additional complaints, except as documented Eyes Eyes: Reports system reviewed and no additional complaints, except as documented ENT Ears, Nose, Mouth, and Throat: Reports vertigo *Cardiovascular Cardiovascular: Reports system reviewed and no additional complaints, except as documented *Respiratory Respiratory: Reports system reviewed and no additional complaints, except as documented *Gastrointestinal Gastrointestinal: Reports nausea *Genitourinary Genitourinary: Reports system reviewed and no additional complaints, except as documented *Musculoskeletal Musculoskeletal: Reports system reviewed and no additional complaints, except as documented Integumentary/Breasts Skin/Breast: Reports system reviewed and no additional complaints, except as documented *Neurologic Neurologic: Reports system reviewed and no additional complaints, except as documented and Reports vertigo Psychiatric Psychiatric: Reports system reviewed and no additional complaints, except as documented Endocrine Endocrine: Reports system reviewed and no additional complaints, except as documented Hematologic/Lymphatic Hematologic/Lymphatic: Reports system reviewed and no additional complaints, except as documented Allergic/Immunologic Allergic/Immunologic: Reports system reviewed and no additional complaints, except as documented Meds Home Medications and Allergies Home Medications Medication Instructions Recorded Confirmed Type hydrochlorothiazide 12.5 mg tablet 12.5 mg PO DAILY Fluid 03/08/18 05/29/22 History benazepril 40 mg tablet 40 mg PO DAILY Hypertension 05/29/22 05/29/22 History buspirone 10 mg tablet 10 mg PO TID Anxiety 05/29/22 05/29/22 History carv
--- NOTE | 2022-05-29 01:47 | PC.NURSE ---
pt arrived to floor via stretcher @ [id number]
[2022-05-29 02:33] LABS: Thyroid Stimulating Hormone 0.09 uIU/mL (0.465-4.68)
--- NOTE | 2022-05-29 03:49 | ECG_ITS ---
APPROVED REPORT Exam: Resting ECG HR:75 bpm ECG Measurements Heart Rate 75 AXES NJ 178 P 84 QRSd 86 QRS 72 QT 379 T 72 QTc 408 Conclusion SINUS RHYTHM NORMAL ECG UNCONFIRMED REPORT Electronically signed by : Ga Ashley MD 05/29/2022 16:44:30
--- NOTE | 2022-05-29 04:41 | PC.NURSE ---
Pt admitted this shift. She is A&OX4. She has complained of nausea and dizziness one time upon admission, at the time pt was ambulating to the bathroom with assistance. Once pt was back in bed she reports relief of dizziness and nausea. Pt hypertensive upon admission. BP 180/75. Labetalol 10 mg given IV and BP improved to 149/60. NS infusing @100ml/hr. Tolerating RA. Bed alarm on an functioning for pt safety.
--- NOTE | 2022-05-29 07:37 | HMH.PHAINT1 ---
Pharmacy Intervention Comments: MEDICATION RECONCILIATION COMPLETED ON PATIENT USING EXTERNAL FILL HISTORY FROM PHARMACY. -THERESA URIOSTEGUI, IQRAD
--- NOTE | 2022-05-29 08:57 | PC.NURSE ---
one unmeasured void
--- NOTE | 2022-05-29 09:39 | PC.NURSE ---
one unmeasured void
[2022-05-29 09:45] LABS: Chloride 99 mmol/L (98-107); Sodium 134 mmol/L (136-145)
[2022-05-29 09:46] LABS: Potassium 4.1 mmoL/L (3.5-5.1)
[2022-05-29 09:48] LABS: Blood Urea Nitrogen 12 mg/dl (7-17); Creatinine Clearance Estimated 45 mL/min (50-200); Estimated Glomerular Filt Rate 62 ml/min (>60); GFR (African American) 74 ML/MIN (>60)
[2022-05-29 09:49] LABS: Anion Gap 12.1 mEq/L (5-15); Calcium 9.2 mg/dl (8.4-10.2); Carbon Dioxide 27 mmol/L (22.0-30.0); Glucose 112 mg/dl (74-100)
--- NOTE | 2022-05-29 10:16 | HMH.PTEV ---
Physical Therapy Evaluation Rehab PT IP Evaluation Start: 05/29/22 09:09 Freq: ONCE Status: Active Protocol: Document 05/29/22 10:08 JANA (Rec: 05/29/22 10:16 PHORPAULA [id number]) Subjective/History History History 72 yowf adm to [facility] with acute onset dizziness and HTN. She reports feeling considerably better today, but remains mildly dizzy at rest. She reports she lives with her spouse, 1 step to enter the home, and she is generally independent with all mobility without AD. Subjective Subjective Pt reports feeling much better , no change in dizziness with any position changes or ambulation. Rehab PT IP Eval Objective Appearance Patient Behavior Appropriate Patient Orientation Person,Place,Time Difficulty following instructions none Speech Pattern Clear Ambulation Patient Able to Ambulate Yes Ambulation Observation IP General Gait Pattern Observation No Deviations/Normal Ambulation Distance (feet) 100 Ambulation Assistive Device None Ambulation Ability Independent Balance Ability to Arise Able, uses arms to help Sitting Balance Steady, safe Standing Balance Steady, wide stance Dynamic Sitting Balance Ability Good Dynamic Standing Balance Ability Good Transfers Bed Transfer Ability Independent Chair Transfer Ability Independent Sit to Stand Bed Transfer Ability Independent Sit to Stand Chair Transfer Ability Independent ROM All Extremities PT ROM Status WFL MMT All Extremities PT MMT WFL Rehab PT IP prob,goals,plan Problems Date of Evaluation: 05/29/22 Discharge Plan PT Discharge Plan Pt is currently at baseline for all mobility and is appropriate to return home once medically stable. Unable to illicit any increased dizziness with any positional changes, mobility testing, or occulomotor testing at this time. G -code Required No Eval Complexity Eval Charge Codes 63214 - Moderate Complexity PHYSICIAN CERTIFICATION: I certify the specified therapy services for Birgit Estrada
--- NOTE | 2022-05-29 12:10 | EXP.DC.SUM ---
General Admission date:: 05/29/22 Discharge date: 05/29/22 HPI HPI HPI: Ms. Estrada is a 72-year-old female with a past medical history that is positive for HTN and anxiety disorder. She presents to [facility] due to an acute onset of dizziness associated with nausea that occurred just prior to presentation. She reports that she was out eating with friends when she became acutely dizzy. A friend that was with her lowered her to the ground so she would not fall. She reports that the dizziness has continued. In the ER, she was noted to be hypertensive with initial blood pressure readings of 215/95. She underwent a CT of the head and Head and Neck CTA that showed no acute findings. Troponin was <0.01. She persisted to have the nausea and dizziness and elevated blood pressure readings in the 180-190 ranges systolic. She was given Clonidine, Meclizine and Antiemetics, but continued to have the symptoms. The patient will be admitted with initial impression: Hypertensive Urgency and Vertigo. She will be given Labetalol, iv fluids, antiemetics, and continued on Meclizine. The plan of care was discussed with patient, her and son at bedside in the ER. All verbalized understanding and agreement with the plan of care. Hospital Course Hospital Course Hospital Course: 72-year-old female with past medical history of HTN and Anxiety Disorder presents with acute onset of dizziness associated with nausea while eating out with friends.? Found to have hypertensive urgency on presentation. Admitted for monitoring and to address blood pressure. Symptoms improved with improvement in blood pressure. Problems addressed as follows: Hypertensive Urgency Vertigo -Blood pressure severely elevated on presentation, systolic above 200. Having dizziness and some nausea at this time. Blood pressures have been elevated at home with systolics in the 160s per her report. Was given clonidine in the ER with improvement, labetalol x1 with even more improvement in blood pressure. Continued home benazepril and HCTZ. Added carvedilol to patient's regimen. Blood pressures with systolics in the 140s on the day of discharge. Dizziness more or less resolved. CT of head on admission showed no acute intracranial process or strokes. CTA of head and neck showed no acute findings either. PT evaluated, patient back to baseline function with no positional vertigo symptoms. Stable for discharge home. If symptoms continue, recommend further work-up by primary care doctor in the outpatient setting. -Continue benazepril 40 mg daily, HCTZ 12 and half milligrams daily, carvedilol 6.25 mg twice daily, would encourage evaluation by PCP and titration as needed for goal blood pressure less than 130/80 -Did receive a dose of meclizine with good response. Sent home with as needed regimen if dizziness persists. Anxiety Disorder: Continued home dose of Buspar Exam Data for Last 24 hours Vital signs and Labs for Last 24 Hours: Temp Pulse Resp BP Pulse Ox 98.3 F 80 16 156/57 H 97 05/29/22 08:00 05/29/22 08:00 05/29/22 08:00 05/29/22 08:00 05/29/22 08:00 Laboratory Results - last 24 hr 05/28/22 00:00: TSH 0.09 L 05/28/22 18:35: WBC 7.2, RBC 4.33, Hgb 12.9, Hct 38.1, MCV 88.0, MCH 29.9, MCHC 34.0, RDW 13.1, Plt Count 184, MPV 8.5, Neut % (Auto) 59.1, Lymph % (Auto) 32.5, [place] % (Auto) 5.4, Eos % (Auto) 1.9, Baso % (Auto) 1.0, Neut # (Auto) 4.3, Lymph # (Auto) 2.3, [place] # (Auto) 0.4, Eos # (Auto) 0.1, Baso # (Auto) 0.1 05/28/22 18:35: Sodium 135 L, Potassium 3.8 D, Chloride 100, Carbon Dioxide 27, Anion Gap 11.8, BUN 15, Creatinine 1.10 H, Estimated Creat Clear 40, Estimated GFR 49 L, Est GFR ( Amer) 59, Glucose 119 H, Calcium 9.5, Total Bilirubin 0.3, AST 29, ALT 18, Alkaline Phosphatase 79, Troponin I < 0.01, Total Protein 6.9, Albumin 4.5, Globulin 2.4, Albumin/Globulin Ratio 1.9 H 05/28/22 19:56: Urine Color Yellow, Urine Appearance Clear, Uri
--- NOTE | 2022-05-29 15:50 | HMH.PHAINT1 ---
Pharmacy Intervention Comments: DISCHARGE MEDICATION COUNSELING PROVIDED. DISCUSSED STARTING THE FOLLOWING: -CARVEDILOL (BETA-ELSA FOR HR/BP, TWICE DAILY WITH FOOD, DIZZINESS, SLOWED HEART RATE, HEADACHE, LIGHTHEADEDNESS POSSIBLE) -MECLIZINE (FOR DIZZINESS, FOUR TIMES DAILY NEEDED, MAY CAUSE SEDATION, URINARY RETENTION, CONSTIPATION, DRY MOUTH) -ZOFRAN (FOR NAUSEA, SL, EVERY 6 HOURS NEEDED) PATIENT VERBALIZED NO QUESTIONS AT THIS TIME.
== END 2022-05-29 17:23 | disposition home or self-care (01) ==
LOC: ER 22:37 → 2ND 05-29 00:36
PROVIDERS: Emergency Medicine; Nurse Practitioner Family; Admitting Provider Internal Medicine Adolescent Medicine; Emergency Provider Emergency Medicine; PCP Internal Medicine; Visit Provider Internal Medicine Adolescent Medicine
DX: R42 Dizziness and giddiness (principal); I10 Essential (primary) hypertension; I16.0 Hypertensive urgency; Z79.899 Other long term (current) drug therapy; F41.9 Anxiety disorder, unspecified; Z20.822 Contact with and (suspected) exposure to COVID-19
CPT/HCPCS: G0378; 70450; 70496; 70498; 71045; 80048; 80053; 81001; 84443; 84484; 85025; 93005; 97162; 99285; C9803; J2405; Q9967; U0003; U0005

== ENCOUNTER 2022-07-26 12:52 | Emergency (ER) | payer MEDICARE, OTHER, SELFPAY ==
--- NOTE | 2022-07-26 13:49 | EXP.UTC ---
Discharge Plan Disposition Patient Disposition: Home, Self-Care Condition: Good Prescriptions Prescriptions: New prednisone 10 mg tablet 10 mg PO BID 4 Days Qty: 8 0RF azithromycin [Zithromax] 250 mg tablet 250 mg PO UD DOSE PK Qty: 6 0RF Rx Instructions: Take two (2) tablets today, then one (1) tablet days #2 thru #5 ondansetron 4 mg Tablet,Disintegrating 4 mg PO Q8H PRN (Reason: Nausea) Qty: 20 0RF No Action hydrochlorothiazide 12.5 MG tablet 12.5 mg PO DAILY buspirone 10 mg tablet 10 mg PO TID Label Comments: TAKE 1 TABLET BY MOUTH THREE TIMES DAILY benazepril 40 mg tablet 40 mg PO DAILY Label Comments: TAKE 1 TABLET BY MOUTH ONCE DAILY FOR BLOOD PRESSURE omeprazole 20 mg Tablet,Delayed Release (Dr/Ec) 20 mg PO DAILY carvedilol 6.25 mg tablet 6.25 mg PO BID Referrals Follow up/Referrals: Farooq Lee MD [Primary Care Provider] - See instructions Activity Restrictions/Add. Instructions Additional Instructions/Restrictions: Drink plenty of fluids. Take tylenol or ibuprofen for pain or fever. Take the medications as directed. Follow up with your regular doctor. GO TO THE ER FOR ANY WORSENING SYMPTOMS Clinical Impressions Clinical Impression: Pharyngitis Instructions Patient Instructions: DI for Pharyngitis/Tonsillopharyngitis -- Adult Discharge ED Provider: Micky Lehman [facility] [place] HPI General Stated complaint: sore throat, nausea Time Seen by Provider: 07/26/22 13:49 History of Present Illness Provider Complaint: She states that for the past 3 days she has had a very sore throat, sinus congestion, and low grade fever. Related Data Home Medications Medication Instructions Recorded Confirmed hydrochlorothiazide 12.5 mg tablet 12.5 mg PO DAILY Fluid 03/08/18 07/26/22 benazepril 40 mg tablet 40 mg PO DAILY Hypertension 05/29/22 07/26/22 buspirone 10 mg tablet 10 mg PO TID Anxiety 05/29/22 07/26/22 carvedilol 6.25 mg tablet 6.25 mg PO BID . 07/26/22 07/26/22 omeprazole 20 mg tablet,delayed 20 mg PO DAILY GERD 07/26/22 07/26/22 release Previous Rx's Medication Instructions Recorded azithromycin 250 mg tablet 250 mg PO UD DOSE PK #6 tabs 07/26/22 (Zithromax) ondansetron 4 mg disintegrating 4 mg PO Q8H PRN Nausea #20 tabs 07/26/22 tablet prednisone 10 mg tablet 10 mg PO BID 4 days #8 tabs 07/26/22 Allergies Allergy/AdvReac Type Severity Reaction Status Date / Time No Known Allergies Allergy Verified 07/26/22 14:24 PFSH PFS Disclaimer: The information contained in this section may have been updated after the patient was seen, as this information can be updated by other users. Medical History Anxiety disorder Hypertension Surgical History History of tubal ligation Hx of cholecystectomy Family History Mother Pancreatic cancer Brother Pancreatic cancer Sister Pancreatic cancer Social History Smoking Status: Never smoker alcohol intake: never current occupational status: other Travel in the last 8 weeks: None household members: other housing: other caffeine: No ROS Obtained: Yes All systems reviewed & no additional complaints except as documented Constitutional Constitutional: Reports chills and Reports fever(s) Eyes Eyes: Denies eye discharge ENT Ears, Nose, Mouth, and Throat: Reports as per HPI Cardiovascular Cardiovascular: Denies chest pain Respiratory Respiratory: Denies chest congestion and Reports cough Gastrointestinal Gastrointestingal: Reports nausea; Denies abdominal pain, constipation, cramping, diarrhea or vomiting Musculoskeletal Musculoskeletal: Denies arthralgias Integumentary/Breasts Skin/Breast: Denies rash Neurologic Neurologic: Denies pare
[2022-07-26 14:10] VITALS: BP 144/77; PULSE 77; RESP 20; TEMP 36.9; O2SAT 100; BMI 20.5
[2022-07-26 14:13] LABS: UTC Strep Screen (Rapid) Negative (Negative)
[2022-07-26 14:44] VITALS: BP 144/77; PULSE 77; RESP 20; TEMP 36.9; O2SAT 100
== END 2022-07-26 14:43 | disposition home or self-care (01) ==
PROVIDERS: Emergency Provider Nurse Practitioner Family; PCP Internal Medicine
DX: J02.9 Acute pharyngitis, unspecified (principal)
CPT/HCPCS: 87880; 99212; G0463

== ENCOUNTER → 2022-09-30 16:33 | Outpatient (CLI) | payer MEDICARE, OTHER, SELFPAY ==
[2022-09-30 16:45] LABS: Basophils % 0.6 % (0.1-2.0); Eosinophils # 0.1 K/mm3 (0.0-0.4); Hematocrit 38.6 % (37.0-47.0); Hemoglobin 12.6 g/dL (12.2-16.2); Lymphocytes # 1.8 K/mm3 (0.7-4.5); Lymphocytes % 24.4 % (10-50); Mean Corpuscular HGB Conc 32.6 g/dL (31.8-35.4); Mean Corpuscular Hemoglobin 29.2 pg (27.0-31.2); Mean Corpuscular Volume 89.5 fl (81-99); Mean Platelet Volume 8.7 fl (7.4-10.4); Monocytes # 0.6 K/mm3 (0.1-1.0); Monocytes % 8.6 % (1.7-9.3); Neutrophils # 4.7 K/mm3 (1.8-7.8); Neutrophils % 64.5 % (37.0-80.0); Platelet Count 206 K/mm3 (142-424); Red Blood Count 4.31 M/mm3 (4.20-5.40); Red Cell Distribution Width 13.3 % (11.5-17.5); White Blood Count 7.3 K/mm3 (4.8-10.8)
[2022-09-30 17:56] LABS: Anion Gap 11.4 mEq/L (5-15); Blood Urea Nitrogen 21 mg/dl (7-17); Calcium 9.2 mg/dl (8.4-10.2); Carbon Dioxide 31 mmol/L (22.0-30.0); Chloride 98 mmol/L (98-107); Creatine Kinase 96 U/L (30-135); Estimated Glomerular Filt Rate 49 ml/min (>60); GFR (African American) 59 ML/MIN (>60); Glucose 96 mg/dl (74-100); Potassium 4.4 mmoL/L (3.5-5.1); Sodium 136 mmol/L (136-145)
[2022-09-30 18:45] LABS: Vitamin B12 317 pg/mL (239-931)
[2022-09-30 20:05] LABS: Erythrocyte Sedimentation Rate 11 mm/hr (0-30)
== END ==
PROVIDERS: PCP Internal Medicine; Visit Provider Internal Medicine
DX: I10 Essential (primary) hypertension (principal); E78.5 Hyperlipidemia, unspecified; D64.9 Anemia, unspecified; M79.10 Myalgia, unspecified site
CPT/HCPCS: 80048; 82550; 82607; 84443; 85025; 85651

== ENCOUNTER 2022-10-07 20:20 | Emergency (ER) | payer MEDICARE, OTHER, SELFPAY ==
[2022-10-07 21:03] VITALS: BP 174/76; PULSE 89; RESP 18; TEMP 36.7; O2SAT 98; BMI 19.7
--- NOTE | 2022-10-07 21:07 | XR_ITS ---
PROCEDURE INFORMATION: Exam: XR Right Finger(s) Exam date and time: 10/07/2022 9:04 PM Age: 72 years old Clinical indication: Injury or trauma; Other: Smashed finger in truck door; Blunt trauma (contusions or hematomas); Right; Middle finger; Additional info: Middle right finger TECHNIQUE: Imaging protocol: Radiologic exam of the right fingers. Views: Minimum 2 views. COMPARISON: No relevant prior studies available. FINDINGS: Bones/joints: Degenerative changes most prominently affecting the distal interphalangeal joint of the 2nd ray. No acute fracture or dislocation. Soft tissues: Normal. IMPRESSION: Chronic changes without acute process.
--- NOTE | 2022-10-07 21:43 | HMH.EDWNDL ---
Discharge Plan Disposition Patient Disposition: Home, Self-Care Chief Complaint: Wound/Laceration Prescriptions Prescriptions: No Action hydrochlorothiazide 12.5 MG tablet 12.5 mg PO DAILY buspirone 10 mg tablet 10 mg PO TID Label Comments: TAKE 1 TABLET BY MOUTH THREE TIMES DAILY benazepril 40 mg tablet 40 mg PO DAILY Label Comments: TAKE 1 TABLET BY MOUTH ONCE DAILY FOR BLOOD PRESSURE omeprazole 20 mg Tablet,Delayed Release (Dr/Ec) 20 mg PO DAILY carvedilol 6.25 mg tablet 6.25 mg PO BID prednisone 10 mg tablet 10 mg PO BID 4 Days Qty: 8 0RF azithromycin [Zithromax] 250 mg tablet 250 mg PO UD DOSE PK Qty: 6 0RF Rx Instructions: Take two (2) tablets today, then one (1) tablet days #2 thru #5 ondansetron 4 mg Tablet,Disintegrating 4 mg PO Q8H PRN (Reason: Nausea) Qty: 20 0RF Referrals Follow up/Referrals: Farooq Lee MD [Primary Care Provider] - See instructions Clinical Impressions Clinical Impression: Laceration, Contusion of hand Instructions Patient Instructions: DI for Laceration Repair Discharge ED Provider: Kulwant (ED)Vlad Wound/Laceration HPI General Chief Complaint: Wound/Laceration Stated Complaint: AO04/26@1930 MASHED R MIDDLE FINGER Time Seen by Provider: 10/07/22 21:43 Mode of Arrival: Ambulatory Source of Information: Patient and Medical Record Limitations: No Limitations Description of Symptoms (Recalled from ER Triage Doc. by RN): Pt arrives via private vehicle. C/O right middle finger laceration following slamming her finger into her truck door. History of Present Illness HPI narrative: acute injury rt middle finger caught in truck door Onset (ago): hour(s) Extremity Location: Right: hand Place: home Patient tetanus UTD: No Context: accidental Associated symptoms: none Related Data Home Medications Medication Instructions Recorded Confirmed hydrochlorothiazide 12.5 mg tablet 12.5 mg PO DAILY Fluid 03/08/18 07/26/22 benazepril 40 mg tablet 40 mg PO DAILY Hypertension 05/29/22 07/26/22 buspirone 10 mg tablet 10 mg PO TID Anxiety 05/29/22 07/26/22 carvedilol 6.25 mg tablet 6.25 mg PO BID . 07/26/22 07/26/22 omeprazole 20 mg tablet,delayed 20 mg PO DAILY GERD 07/26/22 07/26/22 release Previous Rx's Medication Instructions Recorded azithromycin 250 mg tablet 250 mg PO UD DOSE PK #6 tabs 07/26/22 (Zithromax) ondansetron 4 mg disintegrating 4 mg PO Q8H PRN Nausea #20 tabs 07/26/22 tablet prednisone 10 mg tablet 10 mg PO BID 4 days #8 tabs 07/26/22 Allergies Allergy/AdvReac Type Severity Reaction Status Date / Time No Known Allergies Allergy Verified 07[facility]26[facility]22 14[facility] Disclaimer: The information contained in this section may have been updated after the patient was seen, as this information can be updated by other users. Medical History Anxiety disorder Hypertension Surgical History History of tubal ligation Hx of cholecystectomy Family History Mother Pancreatic cancer Brother Pancreatic cancer Sister Pancreatic cancer Social History Smoking Status: Never smoker alcohol intake: never current occupational status: other Travel in the last 8 weeks: None household members: other housing: other caffeine: No ROS Obtained: Yes All systems reviewed & no additional complaints except as documented Physical Exam General General appearance: alert Head Head exam: normocephalic Eye Eye exam: Present PERRL and EOMI ENT ENT exam: Present normal oropharynx Neck Neck exam: Present trachea midline Respiratory Respiratory exam: Absent respiratory distress Cardiovascular Cardiovascular exam: Present regular rate Abdominal Exam Abdominal exam: Present so
[2022-10-07 22:08] VITALS: BP 170/70; PULSE 88; RESP 18; TEMP 36.6; O2SAT 99
== END 2022-10-07 22:10 | disposition home or self-care (01) ==
PROVIDERS: Emergency Provider Emergency Medicine; PCP Internal Medicine
DX: S61.212A Laceration without foreign body of right middle finger without damage to nail, initial encounter (principal); W23.2XXA Caught, crushed, jammed or pinched between a moving and stationary object, initial encounter; Z23 Encounter for immunization
CPT/HCPCS: 12041; 64450; 73140; 90715; 96372; 99283; 99284

== ENCOUNTER → 2022-11-24 13:21 | Outpatient (CLI) | payer MEDICARE, OTHER, SELFPAY ==
[2022-11-24 17:22] LABS: Alanine Aminotransferase 21 U/L (12-78); Albumin/Globulin Ratio 1.9 (1.1-1.8); Alkaline Phosphatase 76 U/L (38-126); Aspartate Amino Transferase 31 U/L (14-36); Bilirubin,Total 0.6 mg/dl (0.2-1.3); Blood Urea Nitrogen 17 mg/dl (7-17); Calcium 9.7 mg/dl (8.4-10.2); Carbon Dioxide 29 mmol/L (22.0-30.0); Chloride 98 mmol/L (98-107); Cholesterol 204 mg/dl (140-200); Estimated Glomerular Filt Rate 49 ml/min (>60); GFR (African American) 59 ML/MIN (>60); Globulin 2.6 g/dL (1.3-3.2); Glucose 81 mg/dl (74-100); Sodium 139 mmol/L (136-145); Total Protein,Serum 7.6 g/dl (6.3-8.2); Triglycerides 60 mg/dl (30-150); VLDL Cholesterol 12 mg/dL (0-40)
[2022-11-24 17:31] LABS: Chol/HDL Ratio 1.8 (1-3.5); HDL Cholesterol 114 mg/dl (40-60)
[2022-11-24 17:33] LABS: Direct LDL Cholesterol 69.85 mg/dL (100-129)
== END ==
PROVIDERS: PCP Internal Medicine; Visit Provider Internal Medicine
DX: I10 Essential (primary) hypertension (principal); E78.5 Hyperlipidemia, unspecified; D64.9 Anemia, unspecified; N18.2 Chronic kidney disease, stage 2 (mild); K86.2 Cyst of pancreas
CPT/HCPCS: 80053; 80061; 83735

== ENCOUNTER → 2023-02-04 14:44 | Outpatient (CLI) | payer MEDICARE, OTHER, SELFPAY ==
[2023-02-04 15:56] LABS: Hemoglobin A1C 5.5 % (4.0-6.0)
[2023-02-04 15:58] LABS: Erythrocyte Sedimentation Rate 7 mm/hr (0-30)
[2023-02-04 17:05] LABS: Iron 91 ug/dL (37-170)
[2023-02-04 17:06] LABS: Magnesium 1.9 mg/dl (1.6-2.3)
[2023-02-04 17:18] LABS: Total Iron Binding Capacity 371 ug/dL (265-497)
[2023-02-04 17:42] LABS: Ferritin 50.9 ng/ml (11.1-264)
[2023-02-04 20:39] LABS: C-Reactive Protein 0.5 mg/L (0-4)
[2023-02-04 21:49] LABS: Folate > 20.00 ng/mL
[2023-02-06 10:44] LABS: Homocyst(e)ine 17.7 umol/L (0.0-19.2)
[2023-02-08 21:27] LABS: Albumin 4.4 g/dL (2.9-4.4); Alpha-1-Globulin 0.2 g/dL (0.0-0.4); Alpha-2-Globulin 0.6 g/dL (0.4-1.0); Gamma Globulin 0.9 g/dL (0.4-1.8)
[2023-02-17 08:09] LABS: Methylmalonic Acid 314 nmol/L (0-378)
== END ==
PROVIDERS: PCP Internal Medicine; Visit Provider Nurse Practitioner Family
DX: I10 Essential (primary) hypertension (principal); R20.2 Paresthesia of skin; R25.2 Cramp and spasm; R53.83 Other fatigue; E11.9 Type 2 diabetes mellitus without complications
CPT/HCPCS: 36415; 82728; 82746; 83036; 83090; 83540; 83550; 83735; 83921; 84155; 84165; 85651; 86140; 86334

== ENCOUNTER → 2023-02-25 11:31 | Outpatient (CLI) | payer MEDICARE, OTHER, SELFPAY ==
[2023-02-25 12:07] LABS: Basophils % 0.5 % (0.1-2.0); Eosinophils # 0.1 K/mm3 (0.0-0.4); Hemoglobin 13.1 g/dL (12.2-16.2); Lymphocytes # 1.7 K/mm3 (0.7-4.5); Lymphocytes % 22.1 % (10-50); Mean Corpuscular Hemoglobin 28.5 pg (27.0-31.2); Mean Corpuscular Volume 88.9 fl (81-99); Monocytes # 0.6 K/mm3 (0.1-1.0); Monocytes % 7.2 % (1.7-9.3); Neutrophils # 5.4 K/mm3 (1.8-7.8); Neutrophils % 69.2 % (37.0-80.0); Platelet Count 191 K/mm3 (142-424); Red Blood Count 4.61 M/mm3 (4.20-5.40); Red Cell Distribution Width 13.3 % (11.5-17.5); White Blood Count 7.7 K/mm3 (4.8-10.8)
[2023-02-25 13:38] LABS: Alanine Aminotransferase 19 U/L (12-78); Albumin Level 4.8 g/dl (3.5-5.0); Alkaline Phosphatase 67 U/L (38-126); Anion Gap 10.9 mEq/L (5-15); Aspartate Amino Transferase 26 U/L (14-36); Bilirubin,Indirect 0.5 mg/dL (0.0-0.9); Bilirubin,Total 0.5 mg/dl (0.2-1.3); Bilirubin,Unconjugated 0.5 mg/dL (0.0-1.1); Blood Urea Nitrogen 20 mg/dl (7-17); Calcium 9.6 mg/dl (8.4-10.2); Carbon Dioxide 31 mmol/L (22.0-30.0); Chloride 97 mmol/L (98-107); Chol/HDL Ratio 2.1 (1-3.5); Cholesterol 191 mg/dl (140-200); Estimated Glomerular Filt Rate 44 ml/min (>60); GFR (African American) 53 ML/MIN (>60); Glucose 78 mg/dl (74-100); HDL Cholesterol 93 mg/dl (40-60); Magnesium 1.9 mg/dl (1.6-2.3); Potassium 3.9 mmoL/L (3.5-5.1); Sodium 135 mmol/L (136-145); Total Protein,Serum 7.3 g/dl (6.3-8.2); Triglycerides 51 mg/dl (30-150); VLDL Cholesterol 10 mg/dL (0-40)
[2023-02-25 13:55] LABS: Free T4 (Free Thyroxine) 1.12 ng/dl (0.78-2.19)
[2023-02-25 14:09] LABS: Thyroid Stimulating Hormone 0.92 uIU/mL (0.465-4.68)
== END ==
PROVIDERS: PCP Internal Medicine; Visit Provider Internal Medicine
DX: I10 Essential (primary) hypertension (principal); F41.9 Anxiety disorder, unspecified; R42 Dizziness and giddiness
CPT/HCPCS: 36415; 80048; 80061; 80076; 83735; 84439; 84443; 85025

== ENCOUNTER → 2023-03-24 09:59 | Outpatient (CLI) | payer MEDICARE, OTHER, SELFPAY ==
--- NOTE | 2023-03-24 10:04 | CA_ITS ---
APPROVED REPORT EXAM: Comprehensive 2D, Doppler, and color-flow Echocardiogram Sc[employer] Materials Buyer: Sylvia Bailey, BEATRIZ, RVS Ht: 5 ft 2 in Wt: 117lbs BSA: 1.52 BP: 146/68 mmHg Indications: HTN, SOA, Fatigue, CKD 2D Dimensions LVDs 3.70 cm LA Volume 46.00 mL Aortic Root 2.72 cm LA Volume Index 29.50 mL/m2 (M/F) 16-34 Left Atrium 3.42 cm LVOT 1.80 cm (M/F) 1.5-2.5 M-Mode Dimensions RVDd 0.89 cm (0.9-2.6) LA Diam 3.40 cm (1.9-4.0) LVDd 4.21 cm (3.5-5.7) Ao Diam 3.04 cm (2.0-3.7) LVDs 2.71 cm (3.5-5.7) IVSd 0.91 cm (0.6-1.1) PWd 0.72 cm (0.6-1.1) EF (Teich) 65.40% FS 35.60% EDV (Teich) 79.00 mL TAPSE 2.13 (<1.7) ESV (Teich) 27.30 mL LV Diastology E Decel Time 197.00 (160-240 msec) E/A Ratio 0.85 MED E' 9.20 (< 7 cm/sec) MED A' 11.40 cm/s E'/MED E' Ratio 11.02 (>14) LAT E' 9.20 (<10 cm/sec) LAT A' 9.70 cm/s E/LAT E' Ratio 11.02 (>14) Aortic Valve LVOT Max 113.00 (70-110 cm/s) LVOT VTI 28.70 cm AoV Peak Eber. 129.00 (50-130 cm/s) AO Peak GR. 6.70 mmHg AO Mean GR. 3.40 (<5 mmHg) AO VTI 28.48 (18-25 cm) SAMANTHA (VTI) 2.56 (2.5-4.5 cm2) Mitral Valve MV A Velocity 119.00 (40-130 cm/s) E/A Ratio 0.85 MV Decel. Time 197.00 (160-240 ms) Pulmonary Valve PV Peak Velocity 96.00 (50-150 cm/s) Tricuspid Valve TR P. Velocity 233.00 cm/s RAP Estimate 10.00 mmHg RVSP 31.80 mmHg Left Ventricle The left ventricle is normal size. The left ventricular systolic function is normal. The left ventricular ejection fraction is within the normal range. There is normal left ventricular wall thickness. There is normal LV segmental wall motion. The left ventricular diastolic function is normal. LVEF is 55-60%. Right Ventricle The right ventricle is normal size. The right ventricular systolic function is normal. Atria The left atrium size is normal. The right atrium size is normal. There is no Doppler evidence of interatrial shunt. Aortic Valve The aortic valve is mildly thickened. There is no aortic valvular stenosis. No aortic regurgitation is present. Mitral Valve The mitral valve is normal in structure. No evidence of mitral valve stenosis. Trace mitral regurgitation. Tricuspid Valve The tricuspid valve leaflets are thin and pliable. Trace tricuspid regurgitation. RVSP is 20-25 mmHg. Pulmonic Valve The pulmonary valve is normal in structure. Trace pulmonic regurgitation. Great Vessels The aortic root is normal in size. The ascending aorta is not well visualized. IVC is normal in size and collapses >50% with inspiration. Pericardium There is a small sized, circumferential pericardial effusion. No acute indications of tamponade. Other Information Study Quality: Fair Conclusion Normal biventricular systolic function. No significant valvular stenosis or regurgitation. Small circumferential pericardial effusion. No echo indications of tamponade. Electronically signed by : Chrissie Shannon MD 03/26/2023 23:26:18
== END ==
PROVIDERS: PCP Internal Medicine; Visit Provider Nurse Practitioner
DX: R60.0 Localized edema (principal)
CPT/HCPCS: 93306

== ENCOUNTER 2023-07-09 12:07 | Outpatient (CLI) | payer MEDICARE, OTHER, SELFPAY ==
[2023-07-09 14:52] LABS: Amylase 95 U/L (30-110); Lipase 125 U/L (23-300)
== END 2023-07-09 23:59 ==
PROVIDERS: PCP Internal Medicine; Visit Provider Internal Medicine
DX: K86.2 Cyst of pancreas (principal); I10 Essential (primary) hypertension; E78.5 Hyperlipidemia, unspecified; K21.9 Gastro-esophageal reflux disease without esophagitis; N18.2 Chronic kidney disease, stage 2 (mild); D64.9 Anemia, unspecified; F34.1 Dysthymic disorder; F41.9 Anxiety disorder, unspecified
CPT/HCPCS: 82150; 83690

== ENCOUNTER 2023-08-10 14:01 | Outpatient (CLI) | payer MEDICARE, OTHER, SELFPAY ==
--- NOTE | 2023-08-10 14:06 | CT_ITS ---
FINAL REPORT TECHNIQUE: Axial CT images of the abdomen were obtained without contrast. Coronal and sagittal reformatted images were also obtained.This study was performed with techniques to keep radiation doses as low as reasonably achievable (ALARA). Individualized dose reduction techniques using automated exposure control or adjustment of mA and/or kV according to the patient''s size were employed. CLINICAL HISTORY: PANCREATIC CYST COMPARISON: 05/25/2022 FINDINGS: There is a pleural left lower lobe nodule seen best on image 7, 4 mm in size, stable since the prior exam. The liver has an unremarkable appearance, without evidence of mass. The gallbladder has been surgically resected. There is no evidence of biliary ductal dilatation. There is a small hypodense lesion in the tail of the pancreas, measuring 9 mm in size. This is best seen in image #21, and is stable since the prior CT examination. The spleen size is within normal limits. There is no evidence of renal stone or hydronephrosis. There is no evidence of adenopathy. No abnormal fluid collection is seen. No localized inflammatory processes identified. IMPRESSION: Small hypodense 9 mm lesion in the tail of the pancreas, as described, stable since prior CT examinations, most recently of 2021. Reviewed, Interpreted and Dictated by Helen Vazquez MD Transcribed by Linda Rios Authenticated and [facility]
== END 2023-08-10 23:59 ==
LOC: RAD 14:02
PROVIDERS: PCP Internal Medicine; Visit Provider Internal Medicine
DX: K86.2 Cyst of pancreas (principal)
CPT/HCPCS: 74150

== ENCOUNTER 2023-09-06 07:04 | Emergency (ER) | payer MEDICARE, OTHER, SELFPAY ==
[2023-09-06] VITALS (9 sets, daily range): BP systolic 152–189; BP diastolic 65–92; PULSE 80–113; RESP 16; TEMP 36.3; O2SAT 95–98; BMI 19.3
--- NOTE | 2023-09-06 07:35 | PC.NURSE ---
pt ambulated to restroom and back to room with no complications i was at standby assist
--- NOTE | 2023-09-06 07:52 | CT_ITS ---
PROCEDURE INFORMATION: Exam: CT Cervical Spine Without Contrast Exam date and time: 09/06/2023 8:47 AM Age: 73 years old Clinical indication: Injury or trauma; Fall; Blunt trauma; Additional info: Fall with hip injury >65 TECHNIQUE: Imaging protocol: Computed tomography of the cervical spine without contrast. Radiation optimization: All CT scans at this facility use at least one of these dose optimization techniques: automated exposure control; mA and/or kV adjustment per patient size (includes targeted exams where dose is matched to clinical indication); or iterative reconstruction. COMPARISON: CT ANGIO NECK 05/28/2022 10:22 PM FINDINGS: Bones/joints: Severe degenerative changes of the atlantodental joint. Moderate multilevel degenerative disc changes throughout the cervical spine. Severe bilateral facet arthropathy T1-2 in the upper thoracic spine. No acute fracture or subluxation. Lungs: Lung apices are normal. Soft tissues: Unremarkable. IMPRESSION: No acute fracture. Degenerative changes as noted.
--- NOTE | 2023-09-06 07:52 | XR_ITS ---
FINAL REPORT CLINICAL HISTORY: fall with hip injury >65, R low back/hip pain FINDINGS: Four views of the right knee were obtained. There is no acute fracture or dislocation. There is mild degenerative joint disease. Soft tissues are normal. IMPRESSION: No acute osseous abnormality of the right knee. Reviewed, Interpreted and Dictated by Helen Vazquez MD Transcribed by Mónica Chu Authenticated and [facility]
--- NOTE | 2023-09-06 07:52 | XR_ITS ---
FINAL REPORT CLINICAL HISTORY: fall with hip injury >65, R low back/hip pain FINDINGS: AP and frog leg views of the right hip were obtained. There is no prior exam for comparison. There is no acute fracture or dislocation. Joint space is preserved. Soft tissues are within normal limits. IMPRESSION: No acute osseous abnormality of the right hip. If pain persists, MR is recommended. Reviewed, Interpreted and Dictated by Helen Vazquez MD Transcribed by Mónica Chu Authenticated and [facility]
--- NOTE | 2023-09-06 07:52 | XR_ITS ---
FINAL REPORT CLINICAL HISTORY: fall with hip injury >65, R low back/hip pain FINDINGS: RIGHT FEMUR 2 views were obtained. There is no acute fracture or dislocation. The hip joint and knee joint appear intact. There is no soft tissue abnormality. IMPRESSION: No acute bony abnormality. Reviewed, Interpreted and Dictated by Helen Vazquez MD Transcribed by Mónica Chu Authenticated and [facility]
--- NOTE | 2023-09-06 07:52 | CT_ITS ---
FINAL REPORT TECHNIQUE: Thin section axial images were obtained through the thoracic spine without contrast. Sagittal and coronal images were obtained from the axial data. CLINICAL HISTORY: fall with hip injury >65, R low back/hip pain FINDINGS: There is no acute fracture of the thoracic spine. There is no malalignment. Mild multilevel degenerative disease is noted. No acute paraspinal abnormality is identified. IMPRESSION: No acute osseous abnormality of the thoracic spine. Degenerative disc disease. Reviewed, Interpreted and Dictated by Helen Vazquez MD Transcribed by Mónica Chu Authenticated and . [facility]
--- NOTE | 2023-09-06 07:52 | CT_ITS ---
FINAL REPORT TECHNIQUE: Thin section axial images were obtained through the lumbar spine without contrast. Sagittal and coronal reconstruction images were obtained from the axial data. Exam was performed using dose reduction techniques. CLINICAL HISTORY: fall with hip injury >65, R low back/hip pain FINDINGS: There is no acute fracture or acute malalignment of the lumbar spine. Vertebral body height is preserved. There is mild multilevel degenerative disease with disc space narrowing and osteophyte formation. There is no significant central stenosis. Paraspinal soft tissues are within normal limits. There is no paraspinal mass or fluid collection. IMPRESSION: No acute abnormality of the lumbar spine. Mild multilevel degenerative disease. Reviewed, Interpreted and Dictated by Helen Vazquez MD Transcribed by Mónica Chu Authenticated and [facility]
--- NOTE | 2023-09-06 07:52 | CT_ITS ---
FINAL REPORT CLINICAL HISTORY: fall with hip injury >65, R low back/hip pain FINDINGS: CT PELVIS WITHOUT CONTRAST Thin section axial CT with sagittal and coronal reconstructions. This study was performed with techniques to keep radiation doses as low as reasonably achievable (ALARA). Individualized dose reduction techniques using automated exposure control or adjustment of mA and/or kV according to the patient's size were employed. There is no fracture of the pelvis or either hip. There is mild degenerative joint disease. No acute soft tissue abnormality is seen. IMPRESSION: No fracture of the pelvis or either hip. Reviewed, Interpreted and Dictated by Helen Vazquez MD Transcribed by Mónica Chu Authenticated and [facility]
--- NOTE | 2023-09-06 07:52 | CT_ITS ---
FINAL REPORT TECHNIQUE: Thin section axial images were obtained from skull base to vertex without contrast. Coronal reconstruction images were obtained from the axial data. Exam was performed using dose reduction technique. CLINICAL HISTORY: fall with hip injury >65 COMPARISON: 05/28/2022 FINDINGS: There is age-appropriate atrophy. There is no mass effect or midline shift. There is no intracranial hemorrhage. There is no hydrocephalus. Periventricular low density is likely related to changes of chronic small vessel ischemia. The basilar cisterns are preserved. The posterior fossa is without acute abnormality. There is fluid in the bilateral mastoid air cells, right greater than left. There is partial opacification of the sphenoid sinuses. No acute osseous abnormality is identified. IMPRESSION: No acute intracranial abnormality. Atrophy and changes suggesting chronic small vessel ischemia. Bilateral mastoiditis and sphenoid sinusitis. Reviewed, Interpreted and Dictated by Helen Vazquez MD Transcribed by Mónica Chu Authenticated and . [facility]
--- NOTE | 2023-09-06 08:03 | ED_ITS ---
Discharge Plan Disposition Patient Disposition: Home, Self-Care Condition: Good Prescriptions Prescriptions: No Action multivitamin [Daily Multi-Vitamin] Tablet 1 tab PO DAILY amlodipine 2.5 mg tablet 2.5 mg PO DAILY Qty: 30 11RF hydrochlorothiazide 25 mg tablet 25 mg PO DAILY Qty: 30 2RF buspirone 10 mg tablet 10 mg PO TID Patient Comments: TAKE 1 TABLET BY MOUTH THREE TIMES DAILY benazepril 40 mg tablet 40 mg PO BID Patient Comments: TAKE 1 TABLET BY MOUTH ONCE DAILY FOR BLOOD PRESSURE omeprazole 20 mg Tablet,Delayed Release (Dr/Ec) 20 mg PO DAILY Referrals Follow up/Referrals: Farooq Lee MD [Primary Care Provider] - See instructions Oral Valdivia DO [Staff Physician] - See instructions Activity Restrictions/Add. Instructions Additional Instructions/Restrictions: You were evaluated in the emergency department today. Please take Tylenol and ibuprofen at home as needed for pain. Follow-up with your primary care provider over the next 3 days for reassessment. I have also provided you with information for orthopedics to follow-up if you continue to have pain. Keep your follow-up that is scheduled with urology. Return to the emergency department for new or worsening symptoms. Clinical Impressions Clinical Impression: Fall, Acute pain of right hip, Hematuria Instructions Patient Instructions: DI for Hip Pain Discharge ED Provider: Lupe Graham General Adult HPI General Chief complaint: Fall Stated complaint: AO 09/05/23 fell, inj to right hip Time Seen by Provider: 09/06/23 07:16 Mode of Arrival: Ambulatory Source of Information: Patient Limitations: No Limitations Description of Symptoms (Recalled from ER Triage Doc. by RN): Patient presents to ER with complaints that she fell last night and hurt her right hip. Patient ambulatory to ER reports she did not hit head just fell on hip. States pain radiates down leg and around into lower back. No otehr complaints at this time. History of Present Illness HPI narrative: This patient is a 73-year-old female with history of anxiety, hypertension and renal insufficiency presenting to the emergency department for evaluation with concern for right hip pain. Patient reports that last night, she was horsing around with her when she fell onto her right hip. She did not hit her head or lose consciousness. She states that since then, she has had significant right hip pain and was not able to sleep last night because she could not get comfortable. She states the pain is so significant it is making her nauseated. It gets worse with weightbearing, but she is still able to walk. No head injury, loss of consciousness, numbness, tingling, or other concerns. She was well prior to the fall. She takes aspirin but does not take any anticoagulation. No other concerns noted at this time. Related Data Home Medications Medication Instructions Recorded Confirmed buspirone 10 mg tablet 10 mg PO TID Anxiety 05/29/22 03/31/23 omeprazole 20 mg tablet,delayed 20 mg PO DAILY GERD 07/26/22 03/31/23 release benazepril 40 mg tablet 40 mg PO BID Hypertension 02/11/23 03/31/23 multivitamin (Daily Multi-Vitamin 1 tab PO DAILY 03/03/23 03/31/23 tablet) Previous Rx's Medication Instructions Recorded amlodipine 2.5 mg tablet 2.5 mg PO DAILY #30 tabs 05/11/23 hydrochlorothiazide 25 mg tablet 25 mg PO DAILY #30 tabs 06/02/23 Allergies Allergy/AdvReac Type Severity Reaction Status Date / Time No Known Allergies Allergy Verified 03/31/23 14:04 [facility] Disclaimer: The information contained in this section may have been updated after the patient was seen, as this information can be updated by other users. Medical History Anxiety disorder Hypertension Surgical History History of tubal ligation Hx of cholecystectomy Family History Mother Pancreatic cancer Brother Pancreatic cancer Sister Pancreatic cancer Social History Smoking Status: Never smoker alcohol intake: never current occupational status: other Travel in the last 8 weeks: None household members: other housing: other caffeine: No ROS Obtained: Yes All systems reviewed & no additional complaints except as documented Physical Exam General General appearance: alert and in no apparent distress Head Head exam: atraumatic and normocephalic Eye Eye exam: Present normal appearance, PERRL and EOMI ENT ENT exam: Present normal exam, normal oropharynx, mucous membranes moist and normal external ear exam Neck Neck exam: Present normal inspection, full ROM and trachea midline; Absent tenderness Chest Chest inspection: Present normal inspection and symmetric chest wall rise; Absent tenderness Respiratory Respiratory exam: Present normal lung sounds bilaterally; Absent respiratory distress, wheezes, stridor or accessory muscle use Cardiovascular Cardiovascular exam: Present regular rate and normal rhythm Abdominal Exam Abdominal exam: Present soft; Absent distention, tenderness or guarding Extremities Exam Extremities exam: Present tenderness (Tenderness to palpation right hip joint/pelvis. Pelvis is stable. Neurovascularly intact distally.) and normal capillary refill; Absent full ROM (Limited range of motion of right hip secondary to pain.) or edema Back Exam Back exam: Present normal inspection and full ROM; Absent tenderness Neurological Exam Neurological exam: Present alert, oriented X3, CN II-XII intact and normal gait; Absent motor sensory deficit Psychiatric Psychiatric exam: Present normal affect and normal mood Skin Skin exam: Present warm and dry Medical Decision Making Medical Records Medical records reviewed: Yes I reviewed the patient's medical records. Med Inquiry Pt receiving controlled substance: No Vital Signs: 09/06/23 07:05 09/06/23 07:30 09/06/23 08:00 Temperature 97.4 F L Temperature Source Oral Pulse Rate 100 H 94 H Pulse Rate [Right] 102 H Respiratory Rate 16 Blood Pressure 189/73 H Blood Pressure [Right Arm] 171/77 H Blood Pressure Mean [Right Arm] 108 Blood Pressure Source [Right Arm] Automatic Cuff 02 Sat by Pulse Oximetry 98 96 96 Oxygen Delivery Method Room Air Room Air 09/06/23 09:10 09/06/23 09:30 09/06/23 10:00 Temperature Temperature Source Pulse Rate 99 H 113 H 95 H Pulse Rate [Right] Respiratory Rate Blood Pressure 154/65 H 184/92 H 152/68 H Blood Pressure [Right Arm] Blood Pressure Mean [Right Arm] Blood Pressure Source [Right Arm] 02 Sat by Pulse Oximetry 96 95 96 Oxygen Delivery Method Room Air Room Air Room Air 09/06/23 10:30 09/06/23 12:07 09/06/23 12:14 Temperature 97.4 F L Temperature Source Pulse Rate 88 80 108 H Pulse Rate [Right] Respiratory Rate 16 Blood Pressure 162/66 H 152/65 H 152/65 H Blood Pressure [Right Arm] Blood Pressure Mean [Right Arm] Blood Pressure Source [Right Arm] 02 Sat by Pulse Oximetry 96 98 Oxygen Delivery Method Room Air Room Air Room Air Lab Data Lab results reviewed: Yes I reviewed the patient's lab results. Lab Results 09/06/23 08:24: WBC 10.8, RBC 4.14 L, Hgb 12.9, Hct 37.3, MCV 90.1, MCH 31.2, MCHC 34.6, RDW 13.3, Plt Count 193, MPV 8.9, Neut % (Auto) 87.4 H, Lymph % (Auto) 9.2 L, [place] % (Auto) 2.7, Eos % (Auto) 0.2, Baso % (Auto) 0.5, Neut # (Auto) 9.5 H, Lymph # (Auto) 1.0, [place] # (Auto) 0.3, Eos # (Auto) 0.0, Baso # (Auto) 0.1, Total Counted 100, Neutrophils % (Manual) 86 H, Lymphocytes % (Manual) 11, Monocytes % (Manual) 3, Platelet Estimate Normal, RBC Morphology Normal, PT 11.8, INR 1.10, APTT 23.4, Sodium 130 L, Potassium 4.1, Chloride 95 L , Carbon Dioxide 27, Anion Gap 12.1, BUN 16, Creatinine 1.00, Estimated Creat Clear 39, Estimated GFR 54 L, Est GFR ( Amer) 66, Glucose 125 H, Calcium 9.9, Total Bilirubin 0.9, AST 53 H, ALT 39, Alkaline Phosphatase 66, Total Protein 7.4, Albumin 5.0, Globulin 2.4, Albumin/Globulin Ratio 2.1 H 09/06/23 09:54: Urine Color Yellow, Urine Appearance Clear, Urine pH 6.0, Ur Specific [place] >= 1.030, Urine Protein 2+, Urine Glucose (UA) Negative, Urine Ketones 1+, Urine Blood 1+, Urine Nitrate Negative, Urine Bilirubin Negative, Urine Urobilinogen 0.2, Ur Leukocyte Esterase Negative, Urine RBC 5-10, Urine WBC 3-5, Ur Squamous Epith Cells 3-5, Urine Bacteria Trace, Urine Mucus Trace 09/06/23 08:24 09/06/23 08:24 Orders (Tests/Meds): ED MEDICATIONS Discontinued Medications Generic Name Dose Route Start Last Admin Trade Name Freq PRN Reason Stop Dose Admin Acetaminophen 1,000 mg 09/06/23 07:52 09/06/23 08:21 Acetaminophen 1,000mg/100ml Vial IV 09/06/23 07:53 1,000 mg ONCE ONE Administration Morphine Sulfate 2 mg 09/06/23 07:52 09/06/23 08:21 Morphine 2mg/Ml Syringe IV 09/06/23 07:53 2 mg ONCE ONE Administration Ondansetron HCl 4 mg 09/06/23 07:52 09/06/23 08:21 Ondansetron 4mg/2ml Vial IV 09/06/23 07:53 4 mg ONCE ONE Administration Ondansetron HCl 4 mg 09/06/23 09:57 09/06/23 10:04 Ondansetron 4mg/2ml Vial IV 09/06/23 09:58 4 mg ONCE ONE Administration ORDERS Category Date Time Status CT abdomen pelvis wo con Stat Cat Scan 09/06/23 10:[address] bony pelvis Stat Cat Scan 09/06/23 07:[address] cervical spine wo con Stat Cat Scan 09/06/23 07:[address] head/brain wo con Stat Cat Scan 09/06/23 07:[address] lumbar spine wo con Stat Cat Scan 09/06/23 07:[address] thoracic spine wo con Stat Cat Scan 09/06/23 07:52 Completed Femur XR right 2 views [XR femur RT 2V] Stat Exams 09/06/23 07:52 Completed XR hip RT 2-3V w/pelvis Stat Exams 09/06/23 07:52 Completed XR knee RT 3V Stat Exams 09/06/23 07:52 Completed Activated Partial Thrombo Time Stat Lab 09/06/23 08:24 Completed Complete Blood Count Auto Diff Stat Lab 09/06/23 08:24 Completed Comprehensive Metabolic Panel Stat Lab 09/06/23 08:24 Completed Prothrombin Time INR Stat Lab 09/06/23 08:24 Completed UA [Urinalysis and Microscopic] Stat Lab 09/06/23 09:54 Completed Medical Decision Narrative: In summary, this patient is a 73-year-old female presenting to the Emergency Department for evaluation of right hip pain after ground-level fall yesterday. Differential diagnoses considered include but are not limited to pelvic fracture, femoral fracture, contusion, spine fracture, musculoskeletal strain/sprain, ureterolithiasis, cystitis. Ruling out the most morbid conditions drove assessment. On exam, the patient is uncomfortable appearing. She cannot find a position that is comfortable to relieve pressure off of her right hip. Workup included CBC, CMP, urinalysis, CT head/C-spine/T-spine/L-spine/bony pelvis without contrast, XR R hip/pelvis/femur/knee. She was given IV morphine, acetaminophen, and Zofran for symptomatic improvement of pain. I independently interpreted x- ray and CT scan prior to the radiologist read and noted no obvious acute fracture. Please see their read for final interpretation. Patient has mild hematuria on urinalysis but urine is not overtly concerning for infection. She also denies UTI type symptoms. Given her right-sided flank/right lower quadrant pain, however, decision was made to add a CT abdomen and pelvis without IV contrast. This was obtained that did not demonstrate any ureterolithiasis or other acute concerns. Labs were obtained that demonstrated no significantly concerning abnormalities. On reassessment, patient had good improvement after administration of as above. She is been ambulatory throughout the emergency department without difficulty. At this time based on symptoms, favor musculoskeletal origin. She already has follow-up arranged with urology for chronic bladder issues, and advised that she continues to have pain, she should follow-up with her primary care provider as well as orthopedics. I gave her strict return precautions and she was deemed to be appropriate for discharge. all questions were answered prior to discharge . Critical Care Critical Care Time Critical Care Time: No
[2023-09-06] MEDS: MORPHINE 2MG/ML SYRINGE 2 MG IV (08:21)
[2023-09-06] MEDS: ONDANSETRON 4MG/2ML VIAL 4 MG IV ×2 (08:21→10:04)
[2023-09-06] MEDS: ACETAMINOPHEN 1,000MG/100ML VIAL 1000 MG IV (08:21)
--- NOTE | 2023-09-06 08:26 | PC.NURSE ---
pt gone to RAD via wheelchair
--- NOTE | 2023-09-06 08:26 | PC.NURSE ---
LAB advised not enough urine in specimen cup. Will collect new urine sample.
[2023-09-06 08:31] LABS: Basophils # 0.1 K/mm3 (0-0.2); Basophils % 0.5 % (0.1-2.0); Eosinophils % 0.2 % (0.1-12.0); Hematocrit 37.3 % (37.0-47.0); Hemoglobin 12.9 g/dL (12.2-16.2); Lymphocytes % 9.2 % (10-50); Mean Corpuscular HGB Conc 34.6 g/dL (31.8-35.4); Mean Corpuscular Hemoglobin 31.2 pg (27.0-31.2); Mean Corpuscular Volume 90.1 fl (81-99); Mean Platelet Volume 8.9 fl (7.4-10.4); Monocytes # 0.3 K/mm3 (0.1-1.0); Monocytes % 2.7 % (1.7-9.3); Neutrophils # 9.5 K/mm3 (1.8-7.8); Neutrophils % 87.4 % (37.0-80.0); Platelet Count 193 K/mm3 (142-424); Red Blood Count 4.14 M/mm3 (4.20-5.40); Red Cell Distribution Width 13.3 % (11.5-17.5); White Blood Count 10.8 K/mm3 (4.8-10.8)
[2023-09-06 08:35] LABS: MANUAL DIFFERENTIAL MANUAL DIFFERENTIAL (MANUAL DIFF)
[2023-09-06 08:42] LABS: Alanine Aminotransferase 39 U/L (12-78); Albumin/Globulin Ratio 2.1 (1.1-1.8); Alkaline Phosphatase 66 U/L (38-126); Anion Gap 12.1 mEq/L (5-15); Aspartate Amino Transferase 53 U/L (14-36); Bilirubin,Total 0.9 mg/dl (0.2-1.3); Blood Urea Nitrogen 16 mg/dl (7-17); Calcium 9.9 mg/dl (8.4-10.2); Carbon Dioxide 27 mmol/L (22.0-30.0); Chloride 95 mmol/L (98-107); Creatinine Clearance Estimated 39 mL/min (50-200); Estimated Glomerular Filt Rate 54 ml/min (>60); GFR (African American) 66 ML/MIN (>60); Globulin 2.4 g/dL (1.3-3.2); Glucose 125 mg/dl (74-100); Potassium 4.1 mmoL/L (3.5-5.1); Sodium 130 mmol/L (136-145); Total Protein,Serum 7.4 g/dl (6.3-8.2)
[2023-09-06 08:44] LABS: Activated Partial Thrombo Time 23.4 seconds (22.8-30.6); Prothrombin Time 11.8 seconds (10.1-12.5)
[2023-09-06 08:48] LABS: Lymphocytes % 11 % (10-50); Monocytes % 3 % (2-9); Neutrophils % 86 % (42-76); Platelet Estimate Normal; RBC Morphology Normal; Total Cells Counted 100
--- NOTE | 2023-09-06 09:02 | PC.NURSE ---
pt returned from RAD
[2023-09-06 09:58] LABS: Microscopic, Urine URINE MICROSCOPIC (MICROSCOPIC)
[2023-09-06 10:02] LABS: Appearance,Urine CLEAR (Clear); Bilirubin,Urine Negative (Negative); Blood, Urine 1+ (Negative); Color,Urine YELLOW (Yellow); Glucose,Urine (UA) Negative (Negative); Ketones,Urine 1+ (Negative); Leukocyte Esterase,Urine Negative (Negative); Nitrate,Urine Negative (Negative); Protein,Urine 2+ (Negative); Specific Gravity, Urine >= 1.030 (1.005-1.030); Urobilinogen,Urine 0.2 EU/dl (0.2)
[2023-09-06 10:22] LABS: Bacteria,Urine Trace /lpf; Mucus,Urine Trace /lpf
--- NOTE | 2023-09-06 10:26 | CT_ITS ---
FINAL REPORT TECHNIQUE: Thin section axial images were obtained from the lung bases to the pubic symphysis without IV contrast. Coronal reconstruction images were obtained from the axial data. Exam was performed using dose reduction technique. CLINICAL HISTORY: hematura, RLQ pain, low back pain COMPARISON: 08/10/2023 FINDINGS: The lungs are clear. Unenhanced liver is without focal lesion. There is mild biliary ductal dilatation, likely related to cholecystectomy. The unenhanced spleen, pancreas, and adrenal glands are without acute abnormality. There are no renal or ureteral stones. There is no hydronephrosis or perinephric stranding. There is no evidence of small bowel obstruction. The appendix is not visualized but there are no secondary signs of appendicitis. There is a moderate amount of stool. There is no lymphadenopathy or ascites. The uterus is not well-visualized. No acute osseous abnormality is identified. IMPRESSION: No acute intra-abdominal or intrapelvic abnormality on this unenhanced exam. Reviewed, Interpreted and Dictated by Helen Vazquez MD Transcribed by Asuncion Kessler Authenticated and [facility]
--- NOTE | 2023-09-06 10:40 | PC.NURSE ---
pt gone to ct
--- NOTE | 2023-09-06 10:46 | PC.NURSE ---
pt back to room from ct
== END 2023-09-06 12:15 | disposition home or self-care (01) ==
PROVIDERS: Emergency Provider Emergency Medicine; PCP Internal Medicine
DX: M25.551 Pain in right hip (principal); E87.1 Hypo-osmolality and hyponatremia; R31.9 Hematuria, unspecified; R11.0 Nausea; I10 Essential (primary) hypertension
CPT/HCPCS: 70450; 72125; 72128; 72131; 72192; 73502; 73552; 73562; 74176; 80053; 81001; 85007; 85025; 85610; 85730; 96374; 96375; 96376; 99285; J0131; J2405

== ENCOUNTER 2023-09-07 11:00 | Outpatient (CLI) | payer MEDICARE, OTHER, SELFPAY ==
[2023-09-07 11:08] VITALS: BMI 18.9
[2023-09-07 11:33] VITALS: BP 166/91; PULSE 88; RESP 16; TEMP 37.9; O2SAT 98
[2023-09-07] MEDS: 0.9 % SODIUM CHLORIDE 1000ML 1,000 ML 200 ML IV (11:33)
[2023-09-07 11:34] LABS: Basophils % 0.1 % (0.1-2.0); Eosinophils % 0.3 % (0.1-12.0); Lymphocytes # 0.9 K/mm3 (0.7-4.5); Lymphocytes % 7.2 % (10-50); Mean Corpuscular HGB Conc 34.3 g/dL (31.8-35.4); Mean Corpuscular Hemoglobin 30.5 pg (27.0-31.2); Mean Platelet Volume 9.1 fl (7.4-10.4); Monocytes # 0.6 K/mm3 (0.1-1.0); Monocytes % 4.9 % (1.7-9.3); Neutrophils # 11.3 K/mm3 (1.8-7.8); Neutrophils % 87.4 % (37.0-80.0); Platelet Count 205 K/mm3 (142-424); Red Blood Count 4.26 M/mm3 (4.20-5.40); Red Cell Distribution Width 13.2 % (11.5-17.5); White Blood Count 12.9 K/mm3 (4.8-10.8)
[2023-09-07] MEDS: ONDANSETRON 4MG/2ML VIAL 4 MG (11:34)
[2023-09-07 11:45] LABS: MANUAL DIFFERENTIAL MANUAL DIFFERENTIAL (MANUAL DIFF)
[2023-09-07 11:46] LABS: Chloride 89 mmol/L (98-107); Potassium 3.6 mmoL/L (3.5-5.1); Sodium 127 mmol/L (136-145)
[2023-09-07 11:49] LABS: Amylase 91 U/L (30-110); Anion Gap 11.6 mEq/L (5-15); Blood Urea Nitrogen 23 mg/dl (7-17); Carbon Dioxide 30 mmol/L (22.0-30.0); Creatinine Clearance Estimated 35 mL/min (50-200); Estimated Glomerular Filt Rate 49 ml/min (>60); GFR (African American) 59 ML/MIN (>60); Glucose 120 mg/dl (74-100)
[2023-09-07 12:25] LABS: Microscopic, Urine URINE MICROSCOPIC (MICROSCOPIC)
[2023-09-07 12:30] VITALS: BP 151/88; PULSE 91; RESP 16; TEMP 37.8; O2SAT 99
[2023-09-07 12:35] LABS: Appearance,Urine CLEAR (Clear); Blood, Urine 2+ (Negative); Color,Urine YELLOW (Yellow); Glucose,Urine (UA) Negative (Negative); Ketones,Urine 2+ (Negative); Leukocyte Esterase,Urine Negative (Negative); Nitrate,Urine Negative (Negative); Protein,Urine 2+ (Negative); Specific Gravity, Urine >= 1.030 (1.005-1.030); Urobilinogen,Urine 0.2 EU/dl (0.2)
[2023-09-07 12:51] LABS: Bilirubin,Urine 1+ (Negative)
[2023-09-07 13:05] LABS: Calcium Oxalate Crystals,Urine 1+ /lpf; Mucus,Urine Trace /lpf; RBC,Urine Occasional #/hpf (0-3)
[2023-09-07 13:06] LABS: Bacteria,Urine Trace /lpf
[2023-09-07 13:23] VITALS: BP 159/78; PULSE 88; RESP 14; TEMP 37.9; O2SAT 97
[2023-09-07] MEDS: ACETAMINOPHEN 325MG TAB 650 MG (13:23)
[2023-09-07 14:15] VITALS: BP 151/81; PULSE 84; RESP 14; TEMP 37.5; O2SAT 98
[2023-09-07 14:53] LABS: Lymphocytes % 10 % (10-50); Monocytes % 2 % (2-9); Neutrophils % 88 % (42-76); Platelet Estimate Normal; RBC Morphology Normal; Total Cells Counted 100
[2023-09-07 15:15] VITALS: BP 164/79; PULSE 82; RESP 16; TEMP 37.7; O2SAT 99
[2023-09-07] MEDS: cefTRIAXone 1GM VIAL 1 GM IM (17:02)
[2023-09-07] MEDS: LIDOCAINE 1% 20ML MDV 20 ML (17:03)
[2023-09-07 17:17] VITALS: BP 159/74; PULSE 85; RESP 14; TEMP 37.3; O2SAT 98
== END 2023-09-07 17:30 | disposition home or self-care (01) ==
LOC: INF 11:01
PROVIDERS: PCP Internal Medicine; Visit Provider Internal Medicine
DX: E86.0 Dehydration (principal)
CPT/HCPCS: 80048; 81001; 82150; 85007; 85025; 96360; 96361; 96372; J0696; J2405

== ENCOUNTER 2023-09-08 23:41 | Inpatient (IN) | payer MEDICARE, OTHER, SELFPAY ==
[2023-09-08 23:43] VITALS: BP 216/83; PULSE 98; RESP 18; TEMP 36.4; O2SAT 97; BMI 18.9
--- NOTE | 2023-09-09 | CT_ITS ---
PROCEDURE INFORMATION: Exam: CT Abdomen And Pelvis With Contrast Exam date and time: 09/09/2023 1:10 AM Age: 73 years old Clinical indication: Abdominal pain TECHNIQUE: Imaging protocol: Computed tomography of the abdomen and pelvis with contrast. Radiation optimization: All CT scans at this facility use at least one of these dose optimization techniques: automated exposure control; mA and/or kV adjustment per patient size (includes targeted exams where dose is matched to clinical indication); or iterative reconstruction. Contrast material: ISOVUE; Contrast volume: 75 ml; Contrast route: IV; COMPARISON: 1. CT ABDOMEN PELVIS WO CON 09/06/2023 10:[address] BONY PELVIS 09/06/2023 8:[address] ABDOMEN WO CON 08/10/2023 2:07 PM FINDINGS: Limitations: Evaluation of intra-abdominal contents is limited by a paucity of intraperitoneal fat. Liver: Normal. Gallbladder and bile ducts: The patient is status post cholecystectomy. There is dilation of the intrahepatic biliary ducts most likely reflecting post cholecystectomy effect. Pancreas: Normal. Spleen: There are multiple calcifications in the spleen most likely reflects small granulomas. Adrenal glands: The adrenal glands appear normal. Kidneys and ureters: There are no soft tissue renal masses or hydronephrosis. Stomach and bowel: There is large volume stool throughout the colon. Appendix: No evidence of appendicitis. Intraperitoneal space: There is a small volume of free fluid in the pelvis. Vasculature: The abdominal aorta and its major branches appear normal without evidence of aneurysm or stenosis. There are pelvic phleboliths. Lymph nodes: No lymphadenopathy. Urinary bladder: There is mild bladder wall thickening, possibly due to under distention and a nonspecific finding. Reproductive: No acute process. Bones/joints: The visualized osseous structures of the abdomen and pelvis appear normal for patient age. Soft tissues: There is diffuse anasarca. IMPRESSION: No acute inflammatory or obstructive process is identified. Incidental findings are described within the findings section.
--- NOTE | 2023-09-09 | XR_ITS ---
PROCEDURE INFORMATION: Exam: XR Right Femur Exam date and time: 09/09/2023 12:49 AM Age: 73 years old Clinical indication: Pain; Thigh; Right; Additional info: Right hip pain TECHNIQUE: Imaging protocol: Radiologic exam of the right femur. Views: 2 views. COMPARISON: CR XR FEMUR RT 2V 09/06/2023 8:21 AM FINDINGS: Bones/joints: The osseous structures are intact, with no signs of acute fracture, dislocation, or malalignment. Age-related degenerative changes are observed. There is no evidence of abnormal bone density or destructive lesions. Soft tissues: The soft tissues appear within normal limits. Other findings: The examination is limited by under penetration. IMPRESSION: At the time of imaging, the study shows no acute osseous abnormalities but does reveal signs of age-related degenerative changes.
--- NOTE | 2023-09-09 | XR_ITS ---
PROCEDURE INFORMATION: Exam: XR Right Hip Exam date and time: 09/09/2023 12:48 AM Age: 73 years old Clinical indication: Hip pain; Right hip; Additional info: Right hip pain TECHNIQUE: Imaging protocol: Radiologic exam of the right hip. Views: 2 or 3 views hip with pelvis when performed. COMPARISON: CT ABDOMEN PELVIS WO CON 09/06/2023 10:43 AM FINDINGS: Bones/joints: Unremarkable. No acute fracture. Soft tissues: Unremarkable. IMPRESSION: No acute findings.
[2023-09-09] MEDS: KETOROLAC 30MG/ML VIAL 15 MG IV ×2 (00:09→20:38)
[2023-09-09] MEDS: ACETAMINOPHEN 500MG TAB 1000 MG PO (00:10)
[2023-09-09] MEDS: METHOCARBAMOL 500MG TABLET 500 MG PO (00:10)
[2023-09-09 00:16] LABS: Microscopic, Urine URINE MICROSCOPIC (MICROSCOPIC)
[2023-09-09 00:18] LABS: Appearance,Urine Cloudy (Clear); Bilirubin,Urine 2+ (Negative); Blood, Urine 1+ (Negative); Color,Urine Orange (Yellow); Glucose,Urine (UA) 1+ (Negative); Ketones,Urine 1+ (Negative); Leukocyte Esterase,Urine TRACE (Negative); Nitrate,Urine POSITIVE (Negative); Protein,Urine 3+ (Negative); Specific Gravity, Urine 1.025 (1.005-1.030)
[2023-09-09 00:22] LABS: Basophils % 0.2 % (0.1-2.0); Eosinophils # 0.1 K/mm3 (0.0-0.4); Eosinophils % 0.6 % (0.1-12.0); Hematocrit 37.4 % (37.0-47.0); Hemoglobin 12.6 g/dL (12.2-16.2); Lymphocytes # 1.1 K/mm3 (0.7-4.5); Lymphocytes % 7.6 % (10-50); MANUAL DIFFERENTIAL MANUAL DIFFERENTIAL (MANUAL DIFF); Mean Corpuscular HGB Conc 33.7 g/dL (31.8-35.4); Mean Corpuscular Volume 89.2 fl (81-99); Monocytes # 0.9 K/mm3 (0.1-1.0); Neutrophils # 12.6 K/mm3 (1.8-7.8); Neutrophils % 85.6 % (37.0-80.0); Platelet Count 211 K/mm3 (142-424); Red Cell Distribution Width 13.3 % (11.5-17.5); White Blood Count 14.7 K/mm3 (4.8-10.8)
--- NOTE | 2023-09-09 00:22 | ED_ITS ---
Discharge Plan Disposition Patient Disposition: Admitted Condition: Fair Chief Complaint: Fall Prescriptions Prescriptions: No Action multivitamin [Daily Multi-Vitamin] Tablet 1 tab PO DAILY amlodipine 2.5 mg tablet 2.5 mg PO DAILY Qty: 30 11RF hydrochlorothiazide 25 mg tablet 25 mg PO DAILY Qty: 30 2RF buspirone 10 mg tablet 10 mg PO TID Patient Comments: TAKE 1 TABLET BY MOUTH THREE TIMES DAILY benazepril 40 mg tablet 40 mg PO BID Patient Comments: TAKE 1 TABLET BY MOUTH ONCE DAILY FOR BLOOD PRESSURE omeprazole 20 mg Tablet,Delayed Release (Dr/Ec) 20 mg PO DAILY escitalopram oxalate 10 mg Tablet 5 mg PO DAILY Rx Instructions: take 1/2 tab po daily (5mg dose) Referrals Follow up/Referrals: Farooq Lee MD [Primary Care Provider] - See instructions Clinical Impressions Clinical Impression: Acute hyponatremia, Acute pain of right hip Instructions Patient Instructions: DI for Hyponatremia Discharge ED Provider: Lita Crawford General Adult HPI General Chief complaint: Fall Stated complaint: fall 09/04, right hip pain Time Seen by Provider: 09/08/23 23:46 Mode of Arrival: Wheelchair Source of Information: Patient Limitations: No Limitations Description of Symptoms (Recalled from ER Triage Doc. by RN): Pt took a fall on Wednesday evening, was seen in ER Wednesday with negative imaging. Pt states pain has got increasingly worse over the past 2 days, unable to tolerate pain. Denies any new falls. Bruising to right leg/hip and right forearm. History of Present Illness HPI narrative: 73-year-old female with previous medical history of hypertension, CKD, fall 09/05 presents with continued right hip pain since her fall. 09/05 patient presented to this emergency department after having a mechanical fall onto her right hip. At that time she had a CT abdomen pelvis with contrast and x-rays of the right hip and these did not show any injuries or medical causes of her right hip pain. She was discharged with diagnosis of likely musculoskeletal pain without fracture or dislocation. However, since then she has continued to have constant right hip pain. She is unable to find a comfortable position. She had some dysuria earlier this week but started cefdinir for UTI 24 hours ago so dysuria has resolved. She also has had poor appetite over the last 2 days and increased fatigue. 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 Related Data Home Medications Medication Instructions Recorded Confirmed buspirone 10 mg tablet 10 mg PO TID Anxiety 05/29/22 09/07/23 omeprazole 20 mg tablet,delayed 20 mg PO DAILY GERD 07/26/22 09/07/23 release benazepril 40 mg tablet 40 mg PO BID Hypertension 02/11/23 09/07/23 multivitamin (Daily Multi-Vitamin 1 tab PO DAILY 03/03/23 09/07/23 tablet) escitalopram oxalate 10 mg tablet 5 mg PO DAILY Depression 09/07/23 09/07/23 Previous Rx's Medication Instructions Recorded amlodipine 2.5 mg tablet 2.5 mg PO DAILY #30 tabs 05/11/23 hydrochlorothiazide 25 mg tablet 25 mg PO DAILY #30 tabs 06/02/23 Allergies Allergy/AdvReac Type Severity Reaction Status Date / Time No Known Allergies Allergy Verified 09/07/23 12:39 [facility] Disclaimer: The information contained in this section may have been updated after the patient was seen, as this information can be updated by other users. Medical History Anxiety disorder Hypertension Surgical History History of tubal ligation Hx of cholecystectomy Family History Mother Pancreatic cancer Brother Pancreatic cancer Sister Pancreatic cancer Social History Smoking Status: Never smoker alcohol intake: never current occupational status: other Travel in the last 8 weeks: None household members: other housing: other caffeine: No ROS Obtained: Yes All systems reviewed & no additional complaints except as documented Physical Exam General General appearance: alert and in no apparent distress Head Head exam: atraumatic, normocephalic and normal inspection Eye Eye exam: Present normal appearance, PERRL and EOMI ENT ENT exam: Present normal exam, normal oropharynx, mucous membranes moist and normal external ear exam Neck Neck exam: Present normal inspection, full ROM and trachea midline Chest Chest inspection: Present normal inspection and symmetric chest wall rise; Absent tenderness Respiratory Respiratory exam: Present normal lung sounds bilaterally; Absent respiratory distress Cardiovascular Cardiovascular exam: Present regular rate and normal rhythm Abdominal Exam Abdominal exam: Present soft and normal bowel sounds; Absent distention, tenderness or guarding Extremities Exam Extremities exam: Present normal inspection, full ROM, tenderness (Mild tenderness to palpation of the right hip over the greater trochanter. Patient has normal range of motion of all 4 extremities. Pain does not worsen with ranging the right hip.) and normal capillary refill; Absent calf tenderness Back Exam Back exam: Present normal inspection; Absent tenderness, CVA tenderness (R) or CVA tenderness (L) Neurological Exam Neurological exam: Present alert and oriented X3 Psychiatric Psychiatric exam: Present other (Despondent appearing. Behavior appropriate.) Skin Skin exam: Present warm, dry, intact and normal color Lymphatic Lymphatic Findings: no adenopathy Medical Decision Making Med Inquiry Pt receiving controlled substance: No Vital Signs: 09/08/23 23:43 Temperature 97.5 F L Temperature Source Oral Pulse Rate [Left] 98 H Respiratory Rate 18 Blood Pressure [Right Arm] 216/83 H Blood Pressure Mean [Right Arm] 127 Blood Pressure Source [Right Arm] Automatic Cuff 02 Sat by Pulse Oximetry 97 Oxygen Delivery Method Room Air Lab Data Lab Results 09/09/23 00:10: WBC 14.7 H, RBC 4.20, Hgb 12.6, Hct 37.4, MCV 89.2, MCH 30.0, MCHC 33.7, RDW 13.3, Plt Count 211, MPV 9.0, Neut % (Auto) 85.6 H, Lymph % (Auto) 7.6 L, [place] % (Auto) 6.0, Eos % (Auto) 0.6, Baso % (Auto) 0.2, Neut # (Auto) 12.6 H, Lymph # (Auto) 1.1, [place] # (Auto) 0.9, Eos # (Auto) 0.1, Baso # (Auto) 0.0, Total Counted 100, Neutrophils % (Manual) 80 H, Lymphocytes % (Manual) 12, Monocytes % (Manual) 8, Platelet Estimate Normal, RBC Morphology Normal, Sodium 122 L, Potassium 3.2 L, Chloride 88 L, Carbon Dioxide 27, Anion Gap 10.2, BUN 22 H, Creatinine 0.90, Estimated Creat Clear 38, Estimated GFR 61, Est GFR ( Amer) 74 D, Glucose 120 H, Calcium 9.5, Total Bilirubin 1.1, A ST 151 H D, ALT 93 H D, Alkaline Phosphatase 65, Total Protein 6.8, Albumin 4.4, Globulin 2.4, Albumin/Globulin Ratio 1.8 09/09/23 00:15: Urine Color [place], Urine Appearance Cloudy, Urine pH 5.0, Ur Specific [place] 1.025, Urine Protein 3+, Urine Glucose (UA) 1+, Urine Ketones 1+, Urine Blood 1+, Urine Nitrate Positive, Urine Bilirubin 2+ A, Urine Urobilinogen 4.0, Ur Leukocyte Esterase Trace, Urine RBC 3-5, Urine WBC 5-10, Ur Squamous Epith Cells 3-5, Urine Bacteria 1+, Hyaline Casts Occasional, Urine Mucus Trace 09/09/23 00:10 09/09/23 00:10 Orders (Tests/Meds): ED MEDICATIONS Generic Name Dose Route Start Last Admin Trade Name Gunnar PRN Reason Stop Dose Admin Morphine Sulfate 4 mg 09/09/23 01:43 Morphine 4mg/Ml Syringe IV 09/09/23 01:44 ONCE ONE Sodium Chloride 10 ml 09/09/23 01:20 09/09/23 01:22 Sodium Chloride 0.9% 10ml Syr (Rad Only) IV 10/09/23 01:19 10 ml NEEDED PRN Administration Maintain IV Site Discontinued Medications Generic Name Dose Route Start Last Admin Trade Name Freq PRN Reason Stop Dose Admin Acetaminophen 1,000 mg 09/09/23 00:01 09/09/23 00:10 Acetaminophen 500mg Tab PO 09/09/23 00:02 1,000 mg ONCE ONE Administration Lactated Ringer's 500 mls @ 999 mls/hr 09/09/23 00:34 09/09/23 00:42 Lactated Ringer's 500ml IV 09/09/23 01:04 999 mls/hr .Q31M ONE Administration Iopamidol 75 ml 09/09/23 01:20 09/09/23 01:22 Iopamidol-370 (76%);100ml Bottle IV 09/09/23 01:21 75 ml ONCE ONE Administration Ketorolac Tromethamine 15 mg 09/09/23 00:01 09/09/23 00:09 Ketorolac 30mg/Ml Vial IV 09/09/23 00:02 15 mg ONCE ONE Administration Methocarbamol 500 mg 09/09/23 00:02 09/09/23 00:10 Methocarbamol 500mg Tablet PO 09/09/23 00:03 500 mg ONCE ONE Administration ORDERS Category Date Time Status CT abdomen pelvis w con Stat Cat Scan 09/09/23 00:00 Taken Femur XR right 2 views [XR femur RT 2V] Stat Exams 09/09/23 00:00 Taken XR hip RT 2-3V w/pelvis Stat Exams 09/09/23 00:00 Taken CBC [Complete Blood Count Auto Diff] Stat Lab 09/09/23 00:10 Completed CMP [Comprehensive Metabolic Panel] Stat Lab 09/09/23 00:10 Completed Urinalysis and Microscopic Stat Lab 09/09/23 00:15 Completed Medical Decision Narrative: Consider multiple causes of patient's persistent right hip pain including that patient may have a right hip fracture not previously seen on imaging 3 days ago. Also considered that patient may have developed right-sided nephrolithiasis given she has severe right hip pain that does not worsen with ranging the hip but she cannot find a comfortable position. Very low suspicion at this time for septic or inflammatory joint as patient has excellent range of motion and no overlying erythema or swelling. Patient obtained CT abdomen pelvis with IV contrast and x-ray of the pelvis, right hip, right femur. No left knee tenderness and normal knee ROM. For pain gave patient multimodal pain control. On reassessment she has slight improvement in her pain. Also obtained labs to evaluate for causes of her reduced appetite or consequences of reduced appetite such as electrolyte abnormalities or dehydration. Ordered urinalysis to reevaluate patient based on her reported history of UTI diagnosis week. Imaging I independently reviewed and interpreted showed no acute fracture or dislocation to explain her pain. No nephrolithiasis or pyelonephritis or other concerns on CT scan to explain her right hip pain. + Of bowel obstruction or other intra-abdominal emergency though she does have stool burden throughout the bowel. Labs independently reviewed and interpreted were significant for hyponatremia to 122. This has been steadily declining over the course of this week. Hyponatremia may be causing her fatigue, poor appetite, and mild weakness on ambulation so consulted hospital medicine who agreed to evaluate patient for admission. On reassessment of patient's pain she had not improved with nonopioid pain medication so provided morphine IV. She remained stable until time of admission. Critical Care Critical Care Time Critical Care Time: No
[2023-09-09 00:25] LABS: Chloride 88 mmol/L (98-107); Sodium 122 mmol/L (136-145)
[2023-09-09 00:29] LABS: Bacteria,Urine 1+ /lpf; Mucus,Urine Trace /lpf
[2023-09-09 00:30] LABS: Hyaline Casts,Urine Occasional #/lpf (0)
[2023-09-09 00:31] LABS: Alanine Aminotransferase 93 U/L (12-78); Albumin Level 4.4 g/dl (3.5-5.0); Alkaline Phosphatase 65 U/L (38-126); Aspartate Amino Transferase 151 U/L (14-36); Bilirubin,Total 1.1 mg/dl (0.2-1.3); Blood Urea Nitrogen 22 mg/dl (7-17); Creatinine Clearance Estimated 38 mL/min (50-200); Estimated Glomerular Filt Rate 61 ml/min (>60); GFR (African American) 74 ML/MIN (>60); Potassium 3.2 mmoL/L (3.5-5.1); Total Protein,Serum 6.8 g/dl (6.3-8.2)
[2023-09-09 00:32] LABS: Albumin/Globulin Ratio 1.8 (1.1-1.8); Anion Gap 10.2 mEq/L (5-15); Calcium 9.5 mg/dl (8.4-10.2); Carbon Dioxide 27 mmol/L (22.0-30.0); Globulin 2.4 g/dL (1.3-3.2); Glucose 120 mg/dl (74-100)
[2023-09-09] MEDS: RINGERS SOLUTION,LACTATED 500 ML 999 ML IV (00:42)
[2023-09-09 00:46] LABS: Lymphocytes % 12 % (10-50); Monocytes % 8 % (2-9); Neutrophils % 80 % (42-76); Total Cells Counted 100
[2023-09-09 00:47] LABS: Platelet Estimate Normal; RBC Morphology Normal
[2023-09-09] MEDS: SODIUM CHLORIDE 0.9% 10ML SYR (RAD ONLY) 10 ML IV (01:22)
[2023-09-09] MEDS: IOPAMIDOL-370 (76%);100ML BOTTLE 75 ML IV (01:22)
--- NOTE | 2023-09-09 01:34 | PC.NURSE ---
Pt not able to tolerate pain in bed, seated in chair, family at bedside.
--- NOTE | 2023-09-09 01:50 | EXP.HP ---
History of Present Illness *Admission Date: 09/09/23 *History of present illness: This is a 73-year-old female with PMHx of hypertension, CKD, fall 09/05 presents with continued right hip pain since her fall. On 09/05 patient presented to this emergency department after having a mechanical fall onto her right hip. At that time she had a CT abdomen pelvis with contrast and x-rays of the right hip and these did not show any injuries or medical causes of her right hip pain. She was discharged with diagnosis of likely musculoskeletal pain without fracture or dislocation. However, since then she has continued to have constant right hip pain. She is unable to find a comfortable position. She had some dysuria earlier this week but started cefdinir for UTI 24 hours ago so dysuria has resolved. She also has had poor appetite over the last 2 days and increased fatigue. Admitted for further treatment and work up. [facility] Disclaimer: The information contained in this section may have been updated after the patient was seen, as this information can be updated by other users. Medical History Anxiety disorder Hypertension Surgical History History of tubal ligation Hx of cholecystectomy Family History Mother Pancreatic cancer Brother Pancreatic cancer Sister Pancreatic cancer Social History (Updated 09/09/23 @ 02:46 by Lisa Kruse RN) Smoking Status: Never smoker alcohol intake: never current occupational status: retired and other Travel in the last 8 weeks: None household members: other housing: other caffeine: No Review of Systems Review of Systems Review of systems:: pertinent systems reviewed and negative unless documented below Meds Home Medications and Allergies Home Medications Medication Instructions Recorded Confirmed Type buspirone 10 mg tablet 20 mg PO BIDWMEAL Anxiety 05/29/22 09/09/23 History omeprazole 20 mg tablet,delayed 20 mg PO DAILY GERD 07/26/22 09/09/23 History release benazepril 40 mg tablet 40 mg PO BID Hypertension 02/11/23 09/09/23 History multivitamin (Daily Multi-Vitamin 1 tab PO DAILY 03/03/23 09/09/23 History tablet) amlodipine 2.5 mg tablet 2.5 mg PO DAILY #30 tabs 05/11/23 09/09/23 Rx hydrochlorothiazide 25 mg tablet 25 mg PO DAILY #30 tabs 06/02/23 09/09/23 Rx escitalopram oxalate 10 mg tablet 5 mg PO AM Depression 09/07/23 09/09/23 History New Prescriptions to Start Prescriptions: Allergies Allergy/AdvReac Type Severity Reaction Status Date / Time No Known Allergies Allergy Verified 09/07/23 12:39 Exam Data for Last 24 hours Vital signs and Labs for Last 24 Hours: Temp Pulse Resp BP Pulse Ox O2 Del Method 97.5 F L 98 H 18 216/83 H 97 Room Air 09/08/23 23:43 09/08/23 23:43 09/08/23 23:43 09/08/23 23:43 09/08/23 23:43 09/08/23 23:43 Laboratory Results - last 24 hr 09/09/23 00:10: WBC 14.7 H, RBC 4.20, Hgb 12.6, Hct 37.4, MCV 89.2, MCH 30.0, MCHC 33.7, RDW 13.3, Plt Count 211, MPV 9.0, Neut % (Auto) 85.6 H, Lymph % (Auto) 7.6 L, [place] % (Auto) 6.0, Eos % (Auto) 0.6, Baso % (Auto) 0.2, Neut # (Auto) 12.6 H, Lymph # (Auto) 1.1, [place] # (Auto) 0.9, Eos # (Auto) 0.1, Baso # (Auto) 0.0, Total Counted 100, Neutrophils % (Manual) 80 H, Lymphocytes % (Manual) 12, Monocytes % (Manual) 8, Platelet Estimate Normal, RBC Morphology Normal, Sodium 122 L, Potassium 3.2 L, Chloride 88 L, Carbon Dioxide 27, Anion Gap 10.2, BUN 22 H, Creatinine 0.90, Estimated Creat Clear 38, Estimated GFR 61, Est GFR ( Amer) 74 D, Glucose 120 H, Calcium 9.5, Total Bilirubin 1.1, AST 151 H D, ALT 93 H D, Alkaline Phosphatase 65, Total Protein 6.8, Albumin 4.4, Globulin 2.4, Albumin/Globulin Ratio 1.8 09/09/23 00:15: Urine Color [place], Urine Appearance Cloudy, Urine pH 5.0, Ur Specific [place] 1.025, Urine Protein 3+, Urine Glucose (UA) 1+, Urine Ketones 1+, Urine Blood 1+, Urine Nitrate Positive, Urine Bilirubin 2+ A, Urine Urobilinogen 4.0, Ur Leukocyte Esterase Trace, Urine RBC 3-5, Urine WBC 5-10, Ur Squamous Epith Cells 3-5, Urine Bacteria 1+, Hyaline Casts Occasional, Urine Mucus Trace I & O for Last 24 hours: Intake & Output 09/06/23 09/07/23 09/08/23 09/09/23 23:59 23:59 23:59 23:59 Weight 48.534 kg *Routine HEENT Exam Head: Present normocephalic Eye: Present EOMI ENT: Present mucous membranes moist *Routine Respiratory Exam Respiratory: Present CTA bilaterally *Routine Cardiovascular Exam Cardiovascular: Present RRR, Normal S1 and Normal S2 *Routine Abdominal Exam Abdominal: Present soft and normoactive bowel sounds *Routine Rectal Exam Rectal:: deferred *Routine Genitalia Exam Genitalia:: deferred H&P: Result Imaging and Cardiology CT scan - pelvis: Status: image reviewed by me, Preliminary report and final report EKG: Status: image reviewed by me, Preliminary report and final report Femur/Hip Xray : Status: image reviewed by me, Preliminary report and final report Assessment and Plan *Assessment and plan (1) Acute hyponatremia: Status: Acute Category: Medical Code(s): E87.1 - Hypo-osmolality and hyponatremia (2) Urinary tract infection: Status: Suspected Qualifiers: Urinary tract infection type: acute pyelonephritis Qualified Code(s): N10 - Acute pyelonephritis Category: Medical Code(s): N39.0 - Urinary tract infection, site not specified (3) Nausea: Status: Acute Category: Medical Code(s): R11.0 - Nausea (4) Acute pain of right hip: Status: Acute Category: Medical Code(s): M25.551 - Pain in right hip (5) Hypertension: Problem Comment: Persistent, active follow-up with [facility] cardiology appointment 03/31/2023 Status: Chronic Qualifiers: Hypertension type: unspecified Qualified Code(s): I10 - Essential (primary) hypertension Category: Medical Code(s): I10 - Essential (primary) hypertension (6) Anxiety disorder: Status: Acute Qualifiers: Anxiety disorder type: unspecified anxiety disorder Qualified Code(s): F41.9 - Anxiety disorder, unspecified Category: Medical Code(s): F41.9 - Anxiety disorder, unspecified Plan 73-year-old female with PMHx of hypertension, CKD, fall 09/05 presents with continued right hip pain since her fall. On 09/05 patient presented to this emergency department after having a mechanical fall onto her right hip. he had some dysuria earlier this week but started cefdinir for UTI 24 hours ago so dysuria has resolved. She also has had poor appetite over the last 2 days and increased fatigue.initial labs showed sodium on 122 trending down from previous visit. UA showed possible UTI. Findings discussed with ED. Agreed with th admission. Plan as follow: -HYponatremia. likely secondary to poor intake with concomitance diuresis admit patient. Monitor per unit protocol Normal saline IV hydration gently. Encouraged to increase p.o. intake. Monitor CMP in the morning watch for another electrolyte imbalance Suspected urinary tract infection: Patient was started on cefepime in the outpatient. UA pending Ceftriaxone IV 1 g 24 hours -Acute hip pain, right. Status post fall at home CT of the pelvis and x-rays reviewed. Negative for acute fractures. DJD DJD of the spine present Continue pain management, Tylenol morphine and lidocaine patch as needed Started on gabapentin 100 mg 3 times daily - Nausea Continue antiemetics - Anxiety Disorder Continue home dose of Buspar Lovenox for DVT ppx. On protnix Full code Rounded on patient after nurse practitioner. Personally examined and interviewed patient. Agree with exam findings and care plan as documented. Stiffness in legs on exam. Difficulty with leg raise beyond 30 degrees due to muscle tension. No reproduction of pain. Concern for sciatica component given the burning sensation that she describes down her thighs. No tenderness on exam with thighs. Reflexes and strength intact in the legs. Awaiting PT/OT eval. Resuming home blood pressure meds with benazepril, increase amlodipine to 5 mg. Will likely need placement. Resuming BuSpar and Lexapro for depression.
[2023-09-09] MEDS: MORPHINE 4MG/ML SYRINGE 4 MG IV ×2 (01:52→08:17)
--- NOTE | 2023-09-09 01:53 | PC.NURSE ---
Patient admitted to room 210 to hospitalist for hyponatremia and right hip pain; observation status.
--- NOTE | 2023-09-09 02:01 | PC.NURSE ---
Pt placed in wheelchair, not comfortable in chair. Family at bedside, morphine given for pain.
[2023-09-09 02:13] VITALS: BP 159/79; PULSE 71; RESP 16; TEMP 36.8; O2SAT 97
--- NOTE | 2023-09-09 02:13 | PC.NURSE ---
Report called to Lisa TELLO #[phone]
[2023-09-09 02:41] VITALS: BP 172/69; PULSE 82; RESP 18; TEMP 36.6; O2SAT 95; BMI 20.4
[2023-09-09] MEDS: ONDANSETRON 4MG/2ML VIAL 4 MG IV (02:59)
[2023-09-09] MEDS: 0.9 % SODIUM CHLORIDE 1000ML 1,000 ML 125 ML IV ×3 (02:59→21:50)
[2023-09-09] MEDS: LIDOCAINE 5% TRANSDERMAL PATCH 1 EACH TP (03:32)
--- NOTE | 2023-09-09 03:37 | PC.NURSE ---
Pt is alert and oriented x4, and currently on RA. Pt arrived to the unit around 0230 am, pt presents with restlessness and anxiety, and rates pain 10/10 on a scale from 0-10. Pt has been treated for severe pain and is now maxed on allotted dosage at this time. Contacted TITO ARAUJO with concerns of pain and anxiety. TITO ARAUJO ordered to apply lidocaine patch PRN. this nurse applied a 5% lidocaine patch to pt's lower back. Pt family member states that she has been taking care of her at home and fell while doing so. she also tells this nurse that the pt has received news of her husbands condition worsening and that the pt has not been coping well and has increased anxiety and depression, is barely eating or sleeping. Pt complains that she can not get comfortable despite numerous attempts from staff to provide comfort.
[2023-09-09 04:00] VITALS: PULSE 94; RESP 18; TEMP 36.6; O2SAT 96; BMI 20.2
[2023-09-09] MEDS: GABAPENTIN 100MG CAPSULE 100 MG PO ×2 (04:00→08:11)
[2023-09-09] MEDS: POTASSIUM CHLORIDE 20MEQ TAB 40 MEQ PO (04:00)
[2023-09-09] MEDS: CEFTRIAXONE 1 GM 1 GM in 0.9 % SODIUM CHLORIDE 50 ML IV (06:07)
[2023-09-09 07:03] LABS: Basophils % 0.3 % (0.1-2.0); Eosinophils % 0.2 % (0.1-12.0); Hematocrit 36.8 % (37.0-47.0); Lymphocytes % 7.5 % (10-50); Mean Corpuscular HGB Conc 32.7 g/dL (31.8-35.4); Mean Corpuscular Hemoglobin 29.8 pg (27.0-31.2); Mean Corpuscular Volume 91.1 fl (81-99); Mean Platelet Volume 9.1 fl (7.4-10.4); Monocytes # 0.6 K/mm3 (0.1-1.0); Monocytes % 4.2 % (1.7-9.3); Neutrophils # 11.9 K/mm3 (1.8-7.8); Neutrophils % 87.9 % (37.0-80.0); Platelet Count 189 K/mm3 (142-424); Red Blood Count 4.04 M/mm3 (4.20-5.40); Red Cell Distribution Width 13.4 % (11.5-17.5); White Blood Count 13.6 K/mm3 (4.8-10.8)
--- NOTE | 2023-09-09 07:17 | HMH.PHAINT1 ---
Pharmacy Intervention Comments: HOME MEDICATION LIST VERIFIED VIA OUTSIDE PHARMACY
[2023-09-09 07:22] LABS: Alanine Aminotransferase 96 U/L (12-78); Albumin Level 4.1 g/dl (3.5-5.0); Albumin/Globulin Ratio 1.9 (1.1-1.8); Alkaline Phosphatase 63 U/L (38-126); Anion Gap 12.3 mEq/L (5-15); Aspartate Amino Transferase 155 U/L (14-36); Bilirubin,Total 1.3 mg/dl (0.2-1.3); Blood Urea Nitrogen 20 mg/dl (7-17); Calcium 8.9 mg/dl (8.4-10.2); Carbon Dioxide 24 mmol/L (22.0-30.0); Chloride 89 mmol/L (98-107); Creatinine Clearance Estimated 41 mL/min (50-200); Estimated Glomerular Filt Rate 61 ml/min (>60); GFR (African American) 74 ML/MIN (>60); Globulin 2.2 g/dL (1.3-3.2); Glucose 111 mg/dl (74-100); Magnesium 1.7 mg/dl (1.6-2.3); Potassium 3.3 mmoL/L (3.5-5.1); Sodium 122 mmol/L (136-145); Total Protein,Serum 6.3 g/dl (6.3-8.2)
[2023-09-09 07:58] VITALS: BP 179/90; PULSE 78; RESP 18; TEMP 36.8; O2SAT 97
[2023-09-09] MEDS: ENOXAPARIN 40MG/0.4ML SYRINGE 40 MG SQ (08:11)
[2023-09-09] MEDS: PANTOPRAZOLE 40MG TABLET 40 MG PO (08:16)
--- NOTE | 2023-09-09 10:06 | HMH.PTEV ---
Physical Therapy Evaluation Rehab PT IP Evaluation Start: 09/09/23 09:16 Freq: ONCE Status: Active Protocol: Document 09/09/23 09:51 JANA (Rec: 09/09/23 10:05 JANA [id number]) Subjective/History History History Per H&P This is a 73-year-old female with PMHx of hypertension, CKD, fall 09/05 presents with continued right hip pain since her fall. On patient presented to this emergency department after having a mechanical fall onto her right hip. At that time she had a CT abdomen pelvis with contrast and x-rays of the right hip and these did not show any injuries or medical causes of her right hip pain. She was discharged with diagnosis of likely musculoskeletal pain without fracture or dislocation. However, since then she has continued to have constant right hip pain. She is unable to find a comfortable position. She had some dysuria earlier this week but started cefdinir for UTI 24 hours ago so dysuria has resolved. She also has had poor appetite over the last 2 days and increased fatigue. Admitted for further treatment and work up. Subjective Subjective Patient in supine in bed upon arrival with family present. Eleni is agreeable to PT and is oriented x4. Patient reports that prior to admission, she was fully independent and required no assistance with mobility and ADLs. Family reports that she has been depressed for quite a while, and she has not eaten in several days. 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 New diagnosis of cancer in past 12 No months? Rehab PT IP Eval Objective Appearance Patient Behavior Appropriate Patient Orientation Person,Place,Time,Birthday Difficulty following instructions moderate Speech Pattern Clear Ambulation Patient Able to Ambulate Yes Ambulation Observation IP General Gait Pattern Observation Shuffling Step Ambulation Distance (feet) 12 Ambulation Assistive Device Rolling Walker Ambulation Ability Moderate x 2 (50% assist) Balance Ability to Arise Able, uses arms to help Sitting Balance Leans or slides in chair Standing Balance Steady, wide stance Dynamic Sitting Balance Ability Good Dynamic Standing Balance Ability Fair Transfers Bed Transfer Ability Moderate x 2 (50% assist) Sit to Stand Bed Transfer Ability Minimal x 2 (25% assist) ROM RLE PT ROM Status ABN Abnormal ROM Comment Patient demonstrates global rigidity to RLE. LLE PT ROM Status ABN Abnormal ROM Comment Patient demonstrates global rigidity to LLE. MMT All Extremities PT MMT WNL Abnormal MMT Grade B LE no overt strength deficits noted within available ROM Rehab PT IP prob,goals,plan Problems Date of Evaluation: 09/09/23 PT IP Problems Bed Mobility,Transfers,Gait, Balance,Self care,Safety Rehab Potential Rehab Potential Fair Equipment Needs Assistive Devices Rolling / Wheeled Walker Plan PT Intervention Plan Bed Mobility,Transfers,Gait, Balance,Self care,Safety, Therapeutic Exercise PT Plan Frequency Daily Duration LOS Discharge Goals Bed Transfer Ability Contact Guard/Hand Hold Sit to Stand Chair Transfer Ability Contact Guard/Hand Hold Ambulation Assistive Device Rolling Walker Ambulation Distance (feet) 40 Discharge Plan PT Discharge Plan Patient presents for initial evaluation. Patient presents below her baseline in mobility and transfers. Patient required maximal verbal cues for walker placement, body mechanics and stepping during gait. Skilled PT is indicated for this patient during her stay, to promote a return to her prior level of function. The patient may be most appropriate for placement upon discharge from the hospital. Eval Complexity Eval Charge Codes 84921 - High Complexity PHYSICIAN CERTIFICATION: I certify the specified therapy services for Birgit Estrada are required, authorized, and reviewed every 30 days.
--- NOTE | 2023-09-09 10:11 | HMH.OTEV ---
OT Inpatient Evaluation Rehab OT IP Evaluation Start: 09/09/23 09:16 Freq: ONCE Status: Active Protocol: Document 09/09/23 10:00 [facility] (Rec: 09/09/23 10:10 [facility] [id number]) Rehab OT IP Assessment Subjective History Pt oriented x 3 on arrival. Pt agreeable to engage in therapy session. Pt's family present and supportive. Pt admitted on 09/09/23 due to hyponatremia and right hip pain. History and Physical report: This is a 73-year-old female with PMHx of hypertension, CKD , fall 09/05 presents with continued right hip pain since her fall. On 09/05 patient presented to this emergency department after having a mechanical fall onto her right hip. At that time she had a CT abdomen pelvis with contrast and x-rays of the right hip and these did not show any injuries or medical causes of her right hip pain. She was discharged with diagnosis of likely musculoskeletal pain without fracture or dislocation. However, since then she has continued to have constant right hip pain. She is unable to find a comfortable position. She had some dysuria earlier this week but started cefdinir for UTI 24 hours ago so dysuria has resolved. She also has had poor appetite over the last 2 days and increased fatigue. Admitted for further treatment and work up. Subjective My legs hurt. Prior to being in the hospital , pt lived at home with her . According to patient and family pt was independent with all ADLs and simple IADLs. Family did assist with cleaning and cooking at times . Pt did not use any type of AE during functional transfers . 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 Objective Patient Orientation Person,Place,Birthday Right Upper Extremity Gross ROM WFL Left Upper Extremity Gross ROM WFL Bed Mobility bed mobility-scooting,bed mobility - supine/sit Assist Level Minimal x 2 (25% assist) Transfer Training Sit/Stand Transfer Assist Level Minimal x 2 (25% assist) Chair Transfer Ability Minimal x 2 (25% assist) Chair Transfer Technique Sit to/from Ambulatory Chair Transfer Assistive Devices Rolling Walker Rehab OT IP prob,goals,plan Problems Date of Evaluation: 09/09/23 OT IP Problems Bed Mobility,Transfers,Balance ,Self care,Safety Rehab Potential Rehab Potential Good Equipment Needs Assistive Devices Rolling / Wheeled Walker Plan OT intervention Plan Bed Mobility,Transfers,Balance ,Self care,Safety,Therapeutic Exercise OT Plan Frequency Daily Duration LOS Discharge Goals Bed Mobility Ability Standby Assistance Sit to Stand Chair Transfer Ability Contact Guard/Hand Hold Chair Transfer Ability Contact Guard/Hand Hold Chair Transfer Technique Sit to/from Ambulatory Chair Transfer Assistive Devices Rolling Walker Feeding Ability Assist with Tray Set Up Lower Body Dressing Ability Minimal Assistance Upper Body Dressing Ability Standby Assistance Bathing Ability Minimal Assistance Performing Toilet Hygiene Ability Minimal Assistance Overall Commode/Toilet Transfer Ability Contact Guard Commode/Toilet Transfer Technique Sit to/from Ambulatory Commode/Toilet Transfer Assistive Grab Bars Devices Oral Care Assist Standby Assistance Decrease in Endurance Yes Discharge Plan OT Discharge Plan Pt will continue to be seen for OT services while at [facility]. Pt would benefit most from short term rehab at [facility] following discharge. Continued skilled therapy is important in order for patient to improve strength, safety, endurance, ADL independence and functional transfers to reach PLOF. Eval Complexity Eval Charge Codes 59028 - Moderate Complexity PHYSICIAN CERTIFICATION: I certify the specified therapy services for Birgit Estrada are required, authorized, and reviewed every 30 days.
--- NOTE | 2023-09-09 11:30 | SW/DCPLANNER ---
Addendum entered by Shahla March 09/09/23 14:59: [facility] patient on Wednesday09/12/23. Addendum entered by Shahla March 09/09/23 12:35: Kristyn w/ [facility] stated that she will follow up w/ patient onsite today. Original Note: I spoke w/ this patient and her family regarding plans at time of discharge. PT/OT evaluated patient and recommended SNF level of care. Patient and her family are agreeable to placement at [facility] or [facility]. I will fax information to both facilities today and continue to follow up. Discharge date is unknown at this time.
[2023-09-09] MEDS: GABAPENTIN 100MG CAPSULE 200 MG PO ×2 (13:13→20:11)
[2023-09-09] MEDS: LISINOPRIL 20MG TABLET 40 MG PO ×2 (13:13→20:11)
[2023-09-09] MEDS: AMLODIPINE 5MG TABLET 5 MG PO (13:13)
[2023-09-09 13:42] VITALS: BMI 20.2
[2023-09-09 14:44] LABS: Anion Gap 8.3 mEq/L (5-15); Blood Urea Nitrogen 20 mg/dl (7-17); Calcium 8.9 mg/dl (8.4-10.2); Carbon Dioxide 27 mmol/L (22.0-30.0); Chloride 90 mmol/L (98-107); Creatinine Clearance Estimated 41 mL/min (50-200); Estimated Glomerular Filt Rate 61 ml/min (>60); GFR (African American) 74 ML/MIN (>60); Glucose 102 mg/dl (74-100); Potassium 3.3 mmoL/L (3.5-5.1); Sodium 122 mmol/L (136-145)
[2023-09-09 15:32] VITALS: BP 176/86; PULSE 76; RESP 18; TEMP 36.9; O2SAT 98
[2023-09-09] MEDS: BUSPIRONE HCL 10 MG TABLET 20 MG PO (16:36)
[2023-09-09] MEDS: MULTIVITAMIN TABLET 1 EACH PO (16:36)
--- NOTE | 2023-09-09 17:09 | PC.NURSE ---
A&OX4. TOLERATING RA WELL. HAS BEEN UP TO CHAIR MAJORITY OF SHIFT. HAS HAD NO NEEDS OR C/O THUS FAR. FAMILY HAS BEEN AT BEDSIDE. PT REMAINS STIFF WITH WEAK MUSCLES. PURE WICK IN PLACE DRAINING SMALL AMOUNTS OF DARK YELLOW URINE. SEIZURE PADS IN PLACE WELL. VSS.
--- NOTE | 2023-09-09 18:38 | PC.NURSE ---
BLADDER SCANNED PATIENT: SCANNER SHOWED 2ML. NO DISTENTION OR PAIN NOTED PER PALPATION.
[2023-09-09 20:00] VITALS: BP 171/79; PULSE 87; RESP 18; TEMP 36.8; O2SAT 95
[2023-09-09 22:30] LABS: Anion Gap 10.4 mEq/L (5-15); Blood Urea Nitrogen 18 mg/dl (7-17); Calcium 8.5 mg/dl (8.4-10.2); Carbon Dioxide 24 mmol/L (22.0-30.0); Chloride 92 mmol/L (98-107); Creatinine Clearance Estimated 41 mL/min (50-200); Estimated Glomerular Filt Rate 70 ml/min (>60); GFR (African American) 85 ML/MIN (>60); Glucose 103 mg/dl (74-100); Potassium 3.4 mmoL/L (3.5-5.1); Sodium 123 mmol/L (136-145)
[2023-09-10] MEDS: ACETAMINOPHEN 325MG TAB 650 MG PO ×2 (01:34→15:10)
[2023-09-10 04:00] VITALS: BP 159/105; PULSE 112; RESP 20; TEMP 36.7; O2SAT 95; BMI 20.2
[2023-09-10] MEDS: KETOROLAC 30MG/ML VIAL 15 MG IV ×3 (04:15→20:16)
--- NOTE | 2023-09-10 04:30 | PC.NURSE ---
Pt is alert and oriented x4, and currently on RA, Pt has c/o pain for the most part of the shift states that her pain starts in her back and continues down both legs, she rates her pain 10/10 most times, pt has been treated per MAR. Pt continues to have small amounts of dark urine in purewick. Pt has changed position multiple times and has been transferred from bed to chair for comfort. Franklyn Juan APRN aware of pt pain and complaints.
[2023-09-10 06:29] LABS: Basophils % 0.1 % (0.1-2.0); Eosinophils # 0.1 K/mm3 (0.0-0.4); Eosinophils % 0.4 % (0.1-12.0); Hematocrit 35.2 % (37.0-47.0); Hemoglobin 11.7 g/dL (12.2-16.2); Lymphocytes % 8.1 % (10-50); Mean Corpuscular HGB Conc 33.3 g/dL (31.8-35.4); Mean Corpuscular Volume 89.8 fl (81-99); Mean Platelet Volume 9.1 fl (7.4-10.4); Monocytes # 0.6 K/mm3 (0.1-1.0); Monocytes % 4.9 % (1.7-9.3); Neutrophils # 11.1 K/mm3 (1.8-7.8); Neutrophils % 86.4 % (37.0-80.0); Platelet Count 208 K/mm3 (142-424); Red Blood Count 3.92 M/mm3 (4.20-5.40); Red Cell Distribution Width 13.5 % (11.5-17.5); White Blood Count 12.8 K/mm3 (4.8-10.8)
[2023-09-10 06:31] LABS: MANUAL DIFFERENTIAL MANUAL DIFFERENTIAL (MANUAL DIFF)
[2023-09-10 06:42] LABS: Alanine Aminotransferase 111 U/L (12-78); Albumin Level 3.8 g/dl (3.5-5.0); Albumin/Globulin Ratio 1.8 (1.1-1.8); Alkaline Phosphatase 62 U/L (38-126); Anion Gap 6.4 mEq/L (5-15); Aspartate Amino Transferase 168 U/L (14-36); Bilirubin,Total 1.2 mg/dl (0.2-1.3); Blood Urea Nitrogen 18 mg/dl (7-17); Calcium 8.8 mg/dl (8.4-10.2); Carbon Dioxide 26 mmol/L (22.0-30.0); Chloride 94 mmol/L (98-107); Creatinine Clearance Estimated 41 mL/min (50-200); Estimated Glomerular Filt Rate 70 ml/min (>60); GFR (African American) 85 ML/MIN (>60); Globulin 2.1 g/dL (1.3-3.2); Glucose 95 mg/dl (74-100); Magnesium 1.7 mg/dl (1.6-2.3); Potassium 3.4 mmoL/L (3.5-5.1); Sodium 123 mmol/L (136-145); Total Protein,Serum 5.9 g/dl (6.3-8.2)
[2023-09-10] MEDS: CITALOPRAM 10MG TABLET 10 MG PO (06:46)
[2023-09-10] MEDS: 0.9 % SODIUM CHLORIDE 1000ML 1,000 ML 125 ML IV ×2 (06:46→12:28)
[2023-09-10] MEDS: BUSPIRONE HCL 10 MG TABLET 20 MG PO ×2 (06:46→17:51)
--- NOTE | 2023-09-10 07:28 | EXP.ACUTE.PN ---
Subjective *Date: 09/10/23 *Time: 14:28 Interval history: Still having back pain, occasionally radiates down her legs. Working with therapy however. More comfortable when she is up to the chair. On room air. Afebrile. Tolerating p.o. intake. Sodium still low at 123. Denies nausea, vomiting, diarrhea. Medical Exam Vital signs and Labs for Last 24 Hours: Vital Signs Temp Pulse Resp BP Pulse Ox O2 Del Method 09/10/23 07:00 Room Air 09/10/23 05:00 Room Air 09/10/23 04:00 98.1 F 112 H 20 159/105 H 95 Room Air 09/10/23 03:00 Room Air 09/10/23 01:00 Room Air 09/09/23 23:00 Room Air 09/09/23 21:00 Room Air 09/09/23 20:00 Room Air 09/09/23 20:00 98.2 F 87 18 171/79 H 95 Room Air 09/09/23 18:37 Room Air 09/09/23 16:57 Room Air 09/09/23 15:32 98.4 F 76 18 176/86 H 98 Room Air 09/09/23 14:40 Room Air 09/09/23 13:00 Room Air 09/09/23 11:00 Room Air 09/09/23 09:00 Room Air 09/09/23 08:00 Room Air 09/09/23 07:58 98.2 F 78 18 179/90 H 97 Room Air Intake and Output 09/09/23 09/09/23 09/10/23 15:59 23:59 07:59 Intake Total 120 / 855 120 / 855 615 / 615 Output Total 100 / 101 0 / 0 Balance 120 / 754 20 / 754 615 / 615 Intake: Intake, Oral Amount 120 / 480 120 / 480 240 / 240 Intake, Total IV Amount 375 / 375 0.9 % Sodium Chloride 1000ML 1, 375 / 375 000 ml @ 125 mls/hr IV .Q8H [facility] Rx#:[id number] Output: Output, Urine Amount 100 / 101 0 / 0 Other: Number of Unmeasured Voids 1 1 Weight 52 kg 52 kg Patient Weight 09/10/23 23:59 Weight 52 kg Laboratory Results - last 24 hr 09/09/23 00:15: Urine Sodium 25.0 L 09/09/23 06:24: Sodium 122 L, Potassium 3.3 L, Chloride 89 L, Carbon Dioxide 24, Anion Gap 12.3, BUN 20 H, Creatinine 0.90, Estimated Creat Clear 41, Estimated GFR 61, Est GFR ( Amer) 74, Glucose 111 H, Calcium 8.9, Magnesium 1.7, Total Bilirubin 1.3, AST 155 H, ALT 96 H, Alkaline Phosphatase 63, Total Protein 6.3, Albumin 4.1, Globulin 2.2, Albumin/Globulin Ratio 1.9 H 09/09/23 14:22: Sodium 122 L, Potassium 3.3 L, Chloride 90 L, Carbon Dioxide 27, Anion Gap 8.3, BUN 20 H, Creatinine 0.90, Estimated Creat Clear 41, Estimated GFR 61, Est GFR ( Amer) 74, Glucose 102 H, Calcium 8.9 09/09/23 22:13: Sodium 123 L, Potassium 3.4 L, Chloride 92 L, Carbon Dioxide 24, Anion Gap 10.4, BUN 18 H, Creatinine 0.80, Estimated Creat Clear 41, Estimated GFR 70, Est GFR ( Amer) 85, Glucose 103 H, Calcium 8.5 09/10/23 06:09: WBC 12.8 H, RBC 3.92 L, Hgb 11.7 L, Hct 35.2 L, MCV 89.8, MCH 30.0, MCHC 33.3, RDW 13.5, Plt Count 208, MPV 9.1, Neut % (Auto) 86.4 H, Lymph % (Auto) 8.1 L, [place] % (Auto) 4.9, Eos % (Auto) 0.4, Baso % (Auto) 0.1, Neut # (Auto) 11.1 H, Lymph # (Auto) 1.0, [place] # (Auto) 0.6, Eos # (Auto) 0.1, Baso # (Auto) 0.0, Sodium 123 L, Potassium 3.4 L, Chloride 94 L, Carbon Dioxide 26, Anion Gap 6.4, BUN 18 H, Creatinine 0.80, Estimated Creat Clear 41, Estimated GFR 70, Est GFR ( Amer) 85, Glucose 95, Calcium 8.8, Magnesium 1.7, Total Bilirubin 1.2, AST 168 H, ALT 111 H, Alkaline Phosphatase 62, Total Protein 5.9 L, Albumin 3.8, Globulin 2.1, Albumin/Globulin Ratio 1.8 I & O for Labs for Last 24 Hours: Intake & Output 09/07/23 09/08/23 09/09/23 09/10/23 23:59 23:59 23:59 23:59 Intake Total 240 / 855 615 / 615 Output Total 101 / 101 0 / 0 Balance 139 / 754 615 / 615 Weight 48.534 kg 52 kg 52 kg Constitutional: Present no acute distress, thin and cooperative Head: Present atraumatic and normocephalic Neck: Present normal inspection Respiratory: Present normal respiratory effort; Absent rhonchi, wheezes or crackles Cardiac: Present Regular Rhythm and Tachycardia GI: Present soft and normal bowel sounds; Absent distention or tenderness Extremities: Present normal inspection, full ROM and edema (1+ in RLE); Absent tenderness Skin: Present intact; Absent erythema Neuro: Present Grossly Intact, alert, awake, oriented x 3 and moves all extremities Comment:: Pain down legs with movement of legs, consistent with sciatica Assessment and Plan *Assessment and plan (1) Acute hyponatremia: Status: Acute Category: Medical Code(s): E87.1 - Hypo-osmolality and hyponatremia (2) Urinary tract infection: Status: Suspected Qualifiers: Urinary tract infection type: acute pyelonephritis Qualified Code(s): N10 - Acute pyelonephritis Category: Medical Code(s): N39.0 - Urinary tract infection, site not specified (3) Sciatica: Status: Acute Category: Medical Code(s): M54.30 - Sciatica, unspecified side (4) Nausea: Status: Acute Category: Medical Code(s): R11.0 - Nausea (5) Acute pain of right hip: Status: Acute Category: Medical Code(s): M25.551 - Pain in right hip (6) Hypertension: Problem Comment: Persistent, active follow-up with [facility] cardiology appointment 03/31/2023 Status: Chronic Qualifiers: Hypertension type: unspecified Qualified Code(s): I10 - Essential (primary) hypertension Category: Medical Code(s): I10 - Essential (primary) hypertension (7) Anxiety disorder: Status: Acute Qualifiers: Anxiety disorder type: unspecified anxiety disorder Qualified Code(s): F41.9 - Anxiety disorder, unspecified Category: Medical Code(s): F41.9 - Anxiety disorder, unspecified Plan 73-year-old female with PMHx of hypertension, CKD, fall 09/05 presents with continued right hip pain since her fall. On 09/05 patient presented to this emergency department after having a mechanical fall onto her right hip. he had some dysuria earlier this week but started cefdinir for UTI 24 hours ago so dysuria has resolved. She also has had poor appetite over the last 2 days and increased fatigue.initial labs showed sodium on 122 trending down from previous visit. UA showed possible UTI. Findings discussed with ED. medicine agreed to admit for further management. Therapy working with patient. Concern for slow improvement in hyponatremia and severe back pain from sciatica after her recent fall. Continues to require inpatient management. Problems addressed as follows: -HYponatremia. likely secondary to poor intake with concomitance diuresis Slowly correcting. Continue normal saline today for repletion. Will treat with Lasix x 1. Discontinue HCTZ as this is the likely culprit in her hyponatremia with poor p.o. intake Sodium 123 this morning. Correcting less than 8 to 10 mEq/day.. Encouraged to increase p.o. intake. Monitor CMP in the morning watch for another electrolyte imbalance BMP ordered for 2 PM and 10 PM to monitor sodium repletion and correction rate. Anxiety/depression: Continue BuSpar 20 mg 3 times a day with meals. Continue citalopram 10 mg daily. Hypertension: Decrease lisinopril to 40 mg once daily Initiate carvedilol 12.5 mg twice daily Continue amlodipine 5 mg daily. For back pain/sciatica: Initiate dexamethasone 6 mg IV daily. Increase gabapentin to 200 mg 3 times a day. Patient has pain management follow-up on Wednesday as an outpatient. Will continue hydrocodone 5/325 as needed every 6 hours for severe breakthrough pain along with Toradol 15 mg IV every 6 hours as needed for moderate to severe pain. Initiate melatonin 5 mg nightly for sleep Suspected urinary tract infection: Patient was started on cefepime in the outpatient. UA pending Ceftriaxone IV 1 g 24 hours Nausea: Continue Zofran as needed every 8 hour PT and OT continue to work with patient during admission Patient has been accepted to [facility], will discharge on Wednesday Lovenox for DVT ppx On protnix Full code
[2023-09-10 08:00] VITALS: BP 186/90; PULSE 105; RESP 20; TEMP 36.8; O2SAT 100; O2SAT 98
[2023-09-10] MEDS: GABAPENTIN 100MG CAPSULE 200 MG PO ×3 (08:36→20:15)
[2023-09-10] MEDS: PANTOPRAZOLE 40MG TABLET 40 MG PO (08:36)
[2023-09-10] MEDS: LISINOPRIL 20MG TABLET 40 MG PO (08:39)
[2023-09-10] MEDS: CARVEDILOL 12.5MG TABLET 12.5 MG PO ×2 (08:40→20:15)
[2023-09-10 08:41] LABS: Lymphocytes % 5 % (10-50); Monocytes % 6 % (2-9); Neutrophils % 89 % (42-76); Total Cells Counted 100
[2023-09-10] MEDS: FUROSEMIDE 40MG/4ML VIAL 40 MG IV ×2 (08:41→19:15)
[2023-09-10] MEDS: ENOXAPARIN 40MG/0.4ML SYRINGE 40 MG SQ (08:41)
[2023-09-10] MEDS: LIDOCAINE 5% TRANSDERMAL PATCH 1 EACH TP (08:41)
[2023-09-10 08:42] LABS: Platelet Estimate Normal; RBC Morphology Normal
[2023-09-10] MEDS: CEFTRIAXONE 1 GM 1 GM in 0.9 % SODIUM CHLORIDE 50 ML IV (08:43)
[2023-09-10] MEDS: AMLODIPINE 5MG TABLET 5 MG PO (09:05)
[2023-09-10] MEDS: HYDROCODONE/APAP 5/325 MG TABLET 1 TAB PO ×2 (10:43→17:50)
[2023-09-10] MEDS: DEXAMETHASONE 4MG/ML 1ML VIAL 6 MG IV (12:20)
[2023-09-10 14:39] LABS: Chloride 93 mmol/L (98-107); Potassium 3.3 mmoL/L (3.5-5.1); Sodium 122 mmol/L (136-145)
[2023-09-10 14:42] LABS: Anion Gap 9.3 mEq/L (5-15); Blood Urea Nitrogen 20 mg/dl (7-17); Calcium 8.3 mg/dl (8.4-10.2); Carbon Dioxide 23 mmol/L (22.0-30.0); Creatinine Clearance Estimated 41 mL/min (50-200); Estimated Glomerular Filt Rate 70 ml/min (>60); GFR (African American) 85 ML/MIN (>60); Glucose 148 mg/dl (74-100)
[2023-09-10 16:00] VITALS: BP 163/78; PULSE 73; RESP 20; TEMP 36.6; O2SAT 98
--- NOTE | 2023-09-10 16:03 | ECG_ITS ---
APPROVED REPORT Exam: Resting ECG HR:74 bpm ECG Measurements Heart Rate 74 AXES IN 176 P 51 QRSd 79 QRS 81 QT 366 T 48 QTc 394 Conclusion SINUS RHYTHM Old anterior changes - probable normal variant ABNORMAL ECG UNCONFIRMED REPORT Electronically signed by : Ga Ashley MD 09/11/2023 16:38:38
[2023-09-10] MEDS: MULTIVITAMIN TABLET 1 EACH PO (17:50)
--- NOTE | 2023-09-10 18:50 | PC.NURSE ---
patient remains alert and oriented x4. pt has c/o of 8-10/10 lower back/R&L lower extremity pain routinely throughout the day, treated per AUG. Patient has been up to walk with assistance x2 several times throughout the day and states that getting up off of her back helps the pain temporarily. patient states her appetite improved at dinner time and was able to eat about 50% of her food. patient is up to chair right now and call light is in reach.
[2023-09-10 20:00] VITALS: BP 137/67; PULSE 72; RESP 16; TEMP 36.4; O2SAT 98
[2023-09-10] MEDS: MELATONIN 5MG TABLET 5 MG PO (20:15)
[2023-09-10] MEDS: SODIUM CHLORIDE 1,000MG TABLET 500 MG PO (20:16)
[2023-09-10 22:13] LABS: Chloride 92 mmol/L (98-107); Sodium 120 mmol/L (136-145)
[2023-09-10 22:16] LABS: Anion Gap 3.9 mEq/L (5-15); Blood Urea Nitrogen 22 mg/dl (7-17); Calcium 7.8 mg/dl (8.4-10.2); Carbon Dioxide 27 mmol/L (22.0-30.0); Creatinine Clearance Estimated 41 mL/min (50-200); Estimated Glomerular Filt Rate 61 ml/min (>60); GFR (African American) 74 ML/MIN (>60); Glucose 154 mg/dl (74-100)
[2023-09-10 22:18] LABS: Potassium 2.9 mmoL/L (3.5-5.1)
[2023-09-10] MEDS: POTASSIUM CHLORIDE 20MEQ TAB 40 MEQ PO (22:28)
[2023-09-10 22:40] VITALS: PULSE 60
[2023-09-11] VITALS: PULSE 70
[2023-09-11] MEDS: HYDROCODONE/APAP 5/325 MG TABLET 1 TAB PO ×4 (00:31→21:51)
[2023-09-11] MEDS: ACETAMINOPHEN 325MG TAB 650 MG PO (03:13)
[2023-09-11] MEDS: KETOROLAC 30MG/ML VIAL 15 MG IV ×3 (03:13→17:05)
[2023-09-11 04:00] VITALS: BP 186/79; PULSE 60; PULSE 80; RESP 16; TEMP 36.4; O2SAT 97; BMI 23.6
--- NOTE | 2023-09-11 05:00 | PC.NURSE ---
pt has been restless throughout the shift. pt has been denying use of call valentin and has been screaming out around every hour d/t pain. 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 call valentin has been within reach all shift. provider notified of pt's pain level and no new orders were obtained. pt has ambulated in [place] twice this shift. pt has been c/o weakness in rt leg. pt has been repositioned multiple times throughout shift with no relief. pt stated that the pain is coming from bilateral lower extremities and her lower back. pt medicated throughout shift per MAR with little to no relief. pt's potassium was 2.9 at beginning of shift and provider notified. heart monitor has been placed on pt d/t potassium level. provider ordered one dose of 40mg of potassium. no new orders at this time. call valentin within reach.
[2023-09-11] MEDS: CITALOPRAM 10MG TABLET 10 MG PO (06:38)
[2023-09-11] MEDS: BUSPIRONE HCL 10 MG TABLET 20 MG PO ×2 (06:38→16:52)
[2023-09-11 07:42] LABS: Magnesium 1.7 mg/dl (1.6-2.3)
[2023-09-11 07:53] LABS: Basophils % 0.1 % (0.1-2.0); Eosinophils % 0.2 % (0.1-12.0); Hematocrit 31.6 % (37.0-47.0); Hemoglobin 10.7 g/dL (12.2-16.2); Lymphocytes # 0.7 K/mm3 (0.7-4.5); Lymphocytes % 3.4 % (10-50); Mean Corpuscular HGB Conc 33.9 g/dL (31.8-35.4); Mean Corpuscular Hemoglobin 30.1 pg (27.0-31.2); Mean Corpuscular Volume 88.8 fl (81-99); Mean Platelet Volume 10.1 fl (7.4-10.4); Monocytes # 0.8 K/mm3 (0.1-1.0); Monocytes % 3.9 % (1.7-9.3); Neutrophils # 19.8 K/mm3 (1.8-7.8); Neutrophils % 92.4 % (37.0-80.0); Platelet Count 221 K/mm3 (142-424); Red Blood Count 3.56 M/mm3 (4.20-5.40); Red Cell Distribution Width 13.4 % (11.5-17.5); White Blood Count 21.4 K/mm3 (4.8-10.8)
[2023-09-11 07:55] VITALS: BP 179/75; PULSE 74; RESP 17; TEMP 36.8; O2SAT 96
[2023-09-11 07:57] LABS: MANUAL DIFFERENTIAL MANUAL DIFFERENTIAL (MANUAL DIFF)
[2023-09-11 08:00] VITALS: PULSE 78; O2SAT 96
[2023-09-11 08:01] LABS: Alanine Aminotransferase 128 U/L (12-78); Albumin Level 3.7 g/dl (3.5-5.0); Albumin/Globulin Ratio 1.8 (1.1-1.8); Alkaline Phosphatase 60 U/L (38-126); Aspartate Amino Transferase 209 U/L (14-36); Blood Urea Nitrogen 25 mg/dl (7-17); Calcium 8.9 mg/dl (8.4-10.2); Carbon Dioxide 25 mmol/L (22.0-30.0); Chloride 91 mmol/L (98-107); Creatinine Clearance Estimated 48 mL/min (50-200); Estimated Glomerular Filt Rate 61 ml/min (>60); GFR (African American) 74 ML/MIN (>60); Globulin 2.1 g/dL (1.3-3.2); Glucose 111 mg/dl (74-100); Sodium 120 mmol/L (136-145); Total Protein,Serum 5.8 g/dl (6.3-8.2)
[2023-09-11] MEDS: LIDOCAINE 5% TRANSDERMAL PATCH 1 EACH TP (08:52)
[2023-09-11 08:54] LABS: Lymphocytes % 7 % (10-50); Monocytes % 3 % (2-9); Neutrophils % 88 % (42-76); Total Cells Counted 100
[2023-09-11 08:56] LABS: Platelet Estimate Normal; RBC Morphology Normal
[2023-09-11] MEDS: CEFTRIAXONE 1 GM 1 GM in 0.9 % SODIUM CHLORIDE 50 ML IV (08:56)
[2023-09-11] MEDS: LISINOPRIL 20MG TABLET 40 MG PO (09:00)
[2023-09-11] MEDS: AMLODIPINE 5MG TABLET 5 MG PO (09:05)
[2023-09-11] MEDS: GABAPENTIN 100MG CAPSULE 200 MG PO ×3 (09:05→21:52)
[2023-09-11] MEDS: PANTOPRAZOLE 40MG TABLET 40 MG PO (09:05)
[2023-09-11] MEDS: CARVEDILOL 12.5MG TABLET 12.5 MG PO ×2 (09:05→21:52)
[2023-09-11] MEDS: SODIUM CHLORIDE 1,000MG TABLET 500 MG PO ×2 (09:06→21:52)
[2023-09-11] MEDS: DEXAMETHASONE 4MG/ML 1ML VIAL 6 MG IV (09:11)
[2023-09-11] MEDS: METHOCARBAMOL 500MG TABLET 500 MG PO ×2 (11:15→21:52)
--- NOTE | 2023-09-11 15:15 | P.PN_ITS ---
Subjective *Date: 09/11/23 *Time: 15:15 Interval history: patient was seen and evaluated at the bedside. No reported acute events overnight, denies chest pain, shortness of breath, nausea, vomiting, abdominal pain. complais of back pain which is chronic per patient Exam Data for Last 24 hours Vital signs and Labs for Last 24 Hours: Temp Pulse Resp BP Pulse Ox O2 Del Method 98.3 F 78 17 179/75 H 96 Room Air 09/11/23 07:55 09/11/23 08:00 09/11/23 07:55 09/11/23 07:55 09/11/23 08:00 09/11/23 13:00 Laboratory Results - last 24 hr 09/10/23 21:45: Sodium 120 L, Potassium 2.9 L*, Chloride 92 L, Carbon Dioxide 27, Anion Gap 3.9 L, BUN 22 H, Creatinine 0.90, Estimated Creat Clear 41, Estimated GFR 61, Est GFR ( Amer) 74, Glucose 154 H, Calcium 7.8 L 09/11/23 06:37: WBC 21.4 H* D, RBC 3.56 L, Hgb 10.7 L, Hct 31.6 L, MCV 88.8, MCH 30.1, MCHC 33.9, RDW 13.4, Plt Count 221, MPV 10.1, Neut % (Auto) 92.4 H, Lymph % (Auto) 3.4 L, Christian % (Auto) 3.9, Eos % (Auto) 0.2, Baso % (Auto) 0.1, Neut # (Auto) 19.8 H, Lymph # (Auto) 0.7, Christian # (Auto) 0.8, Eos # (Auto) 0.0, Baso # (Auto) 0.0, Total Counted 100, Neutrophils % (Manual) 88 H, Band Neutrophils % 2.0, Lymphocytes % (Manual) 7 L, Monocytes % (Manual) 3, Platelet Estimate Normal, RBC Morphology Normal, Sodium 120 L, Potassium 4.0 D, Chloride 91 L, Carbon Dioxide 25, Anion Gap 8.0, BUN 25 H, Creatinine 0.90, Estimated Creat Clear 48, Estimated GFR 61, Est GFR ( Amer) 74, Glucose 111 H D, Calcium 8.9, Magnesium 1.7, Total Bilirubin 1.0, AST 209 H, ALT 128 H, Alkaline Phosphatase 60, Total Protein 5.8 L, Albumin 3.7, Globulin 2.1, Albumin/Globulin Ratio 1.8 I & O for Last 24 hours: Intake & Output 09/08/23 09/09/23 09/10/23 09/11/23 23:59 23:59 23:59 23:59 Intake Total 240 / 855 1315 / 1815 980 / 980 Output Total 101 / 101 400 / 400 800 / 800 Balance 139 / 754 915 / 1415 180 / 180 Weight 48.534 kg 52 kg 52 kg 60.328 kg Microbiology Reports for the Last 24 Hours: Microbiology 09/09/23 00:15 Urine,Catheterized Urine Culture - Final Constitutional Constitutional: no acute distress *Routine HEENT Exam Head: Present normocephalic Eye: Present EOMI and PERRL ENT: Present mucous membranes moist *Routine Neck Exam Neck: Present supple; Absent lymphadenopathy *Routine Respiratory Exam Respiratory: Present CTA bilaterally *Routine Cardiovascular Exam Cardiovascular: Present RRR *Routine Abdominal Exam Abdominal: Present soft and normoactive bowel sounds; Absent tenderness *Routine Extremities Exam Extremities: Absent cyanosis, clubbing or edema *Routine Skin Exam Skin: Present warm; Absent rash *Routine Neurological Exam Neurological: Present alert and oriented X3 Assessment and Plan *Assessment and plan (1) Acute hyponatremia: Status: Acute Category: Medical Code(s): E87.1 - Hypo-osmolality and hyponatremia (2) Urinary tract infection: Status: Suspected Qualifiers: Urinary tract infection type: acute pyelonephritis Qualified Code(s): N10 - Acute pyelonephritis Category: Medical Code(s): N39.0 - Urinary tract infection, site not specified (3) Sciatica: Status: Acute Category: Medical Code(s): M54.30 - Sciatica, unspecified side (4) Nausea: Status: Acute Category: Medical Code(s): R11.0 - Nausea (5) Acute pain of right hip: Status: Acute Category: Medical Code(s): M25.551 - Pain in right hip (6) Hypertension: Problem Comment: Persistent, active follow-up with [facility] cardiology appointment 03/31/2023 Status: Chronic Qualifiers: Hypertension type: unspecified Qualified Code(s): I10 - Essential (primary) hypertension Category: Medical Code(s): I10 - Essential (primary) hypertension (7) Anxiety disorder: Status: Acute Qualifiers: Anxiety disorder type: unspecified anxiety disorder Qualified Code(s): F41.9 - Anxiety disorder, unspecified Category: Medical Code(s): F41.9 - Anxiety disorder, unspecified Plan 73-year-old female with PMHx of hypertension, CKD, fall 09/05 presents with tanner nued right hip pain since her fall. On 09/05 patient presented to this emergency department after having a mechanical fall onto her right hip. he had some dysuria earlier this week but started cefdinir for UTI 24 hours ago so dysuria has resolved. She also has had poor appetite over the last 2 days and increased fatigue.initial labs showed sodium on 122 trending down from previous visit. UA showed possible UTI. Findings discussed with ED. medicine agreed to admit for further management. Therapy working with patient. Concern for slow improvement in hyponatremia and severe back pain from sciatica after her recent fall. Continues to require inpatient management. Problems addressed as follows: -HYponatremia. likely secondary to poor intake with concomitance diuresis , other differential includes pain induced SIADH Slowly correcting. Continue normal saline today for repletion. Will treat with Lasix x 1. Discontinue HCTZ as this is the likely culprit in her hyponatremia with poor p.o. intake Sodium 123 this morning. Correcting less than 8 to 10 mEq/day.. Encouraged to increase p.o. intake. continue Sodium tablets check Na in AM Anxiety/depression: Continue BuSpar 20 mg 3 times a day with meals. Continue citalopram 10 mg daily. Hypertension: Decrease lisinopril to 40 mg once daily Initiate carvedilol 12.5 mg twice daily Continue amlodipine 5 mg daily. For back pain/sciatica: Initiate dexamethasone 6 mg IV daily. Increase gabapentin to 200 mg 3 times a day. Patient has pain management follow-up on Wednesday as an outpatient. Will continue hydrocodone 5/325 as needed every 6 hours for severe breakthrough pain along with Toradol 15 mg IV every 6 hours as needed for moderate to severe pain. Initiate melatonin 5 mg nightly for sleep Suspected urinary tract infection: Patient was started on cefepime in the outpatient. UA pending Ceftriaxone IV 1 g 24 hours Nausea: Continue Zofran as needed every 8 hour PT and OT continue to work with patient during admission Patient has been accepted to [facility], will discharge on Wednesday potentially Lovenox for DVT ppx On protnix Full code
[2023-09-11 15:31] VITALS: BP 121/52; PULSE 67; RESP 16; TEMP 37.1; O2SAT 95
[2023-09-11] MEDS: MULTIVITAMIN TABLET 1 EACH PO (16:52)
--- NOTE | 2023-09-11 17:29 | PC.NURSE ---
patients bilateral lower extremities remain edematous. +2 pitting left LE, +3 pitting right LE. Early in my shift pt c/o of severe pain in her bilateral lower extremities and lower back, along with muscle spasms, was notified of muscle spasms. patient was transferred to the chair and sat up for a few hours, pain and muscle spasms treated per MAR. She states her pain has improved throughout the day and it has remained tolerable, to the point that she was able to sleep for several hours. Patients PO intake has been very minimal but she did manage to eat about half of her dinner this evening. Patient finished her ensure shake at breakfast and dinner. Bed in lowest position, call light in reach.
[2023-09-11 20:00] VITALS: BP 158/74; PULSE 80; RESP 16; TEMP 36.6; O2SAT 95
[2023-09-11] MEDS: MELATONIN 5MG TABLET 5 MG PO (21:52)
[2023-09-12] MEDS: KETOROLAC 30MG/ML VIAL 15 MG IV ×2 (01:12→08:30)
[2023-09-12] MEDS: ACETAMINOPHEN 325MG TAB 650 MG PO ×2 (01:25→06:46)
[2023-09-12] MEDS: METHOCARBAMOL 500MG TABLET 1000 MG PO (03:13)
[2023-09-12] MEDS: HYDROCODONE/APAP 5/325 MG TABLET 1 TAB PO ×2 (03:52→11:06)
[2023-09-12 04:00] VITALS: BP 166/71; PULSE 78; RESP 16; TEMP 36.6; O2SAT 93; BMI 23.6
[2023-09-12] MEDS: BUSPIRONE HCL 10 MG TABLET 20 MG PO (06:45)
[2023-09-12] MEDS: CITALOPRAM 10MG TABLET 10 MG PO (06:46)
[2023-09-12 07:33] LABS: Alanine Aminotransferase 163 U/L (12-78); Albumin Level 3.5 g/dl (3.5-5.0); Albumin/Globulin Ratio 1.5 (1.1-1.8); Alkaline Phosphatase 56 U/L (38-126); Anion Gap 4.1 mEq/L (5-15); Aspartate Amino Transferase 251 U/L (14-36); Bilirubin,Total 1.2 mg/dl (0.2-1.3); Blood Urea Nitrogen 29 mg/dl (7-17); Calcium 8.7 mg/dl (8.4-10.2); Carbon Dioxide 30 mmol/L (22.0-30.0); Chloride 89 mmol/L (98-107); Creatinine Clearance Estimated 48 mL/min (50-200); Estimated Glomerular Filt Rate 61 ml/min (>60); GFR (African American) 74 ML/MIN (>60); Globulin 2.3 g/dL (1.3-3.2); Glucose 112 mg/dl (74-100); Potassium 4.1 mmoL/L (3.5-5.1); Sodium 119 mmol/L (136-145); Total Protein,Serum 5.8 g/dl (6.3-8.2)
[2023-09-12 07:58] VITALS: O2SAT 93
[2023-09-12 08:00] VITALS: BP 160/85; PULSE 76; RESP 18; TEMP 36.4; O2SAT 98
[2023-09-12] MEDS: DEXAMETHASONE 4MG/ML 1ML VIAL 6 MG IV (08:34)
[2023-09-12] MEDS: SODIUM CHLORIDE 1,000MG TABLET 500 MG PO (08:36)
[2023-09-12] MEDS: PANTOPRAZOLE 40MG TABLET 40 MG PO (08:39)
[2023-09-12] MEDS: GABAPENTIN 100MG CAPSULE 200 MG PO ×2 (08:39→15:24)
[2023-09-12] MEDS: LIDOCAINE 5% TRANSDERMAL PATCH 1 EACH TP (08:42)
[2023-09-12] MEDS: CEFTRIAXONE 1 GM 1 GM in 0.9 % SODIUM CHLORIDE 50 ML IV (08:42)
[2023-09-12] MEDS: AMLODIPINE 5MG TABLET 5 MG PO (08:43)
--- NOTE | 2023-09-12 08:43 | XR_ITS ---
PROCEDURE INFORMATION: Exam: XR Chest Exam date and time: 09/12/2023 9:10 AM Age: 73 years old Clinical indication: Other: Pna; Additional info: Pna, consolidation? TECHNIQUE: Imaging protocol: Radiologic exam of the chest. Views: 1 view. COMPARISON: CR XR CHEST PORTABLE 05/28/2022 7:32 PM FINDINGS: Lungs: Patchy retrocardiac opacity, may be atelectasis or pneumonia. Right lung clear. Pleural spaces: Unremarkable. No pleural effusion. No pneumothorax. Heart/Mediastinum: Unremarkable. No cardiomegaly. Bones/joints: Unremarkable. IMPRESSION: Patchy retrocardiac opacity, may be atelectasis or pneumonia.
[2023-09-12] MEDS: CARVEDILOL 12.5MG TABLET 12.5 MG PO (08:44)
--- NOTE | 2023-09-12 11:42 | P.DS_ITS ---
General Admission date:: 09/09/23 Discharge date: 09/12/23 HPI HPI HPI: This is a 73-year-old female with PMHx of hypertension, CKD, fall 09/05 presents with continued right hip pain since her fall. On 09/05 patient presented to this emergency department after having a mechanical fall onto her right hip. At that time she had a CT abdomen pelvis with contrast and x-rays of the right hip and these did not show any injuries or medical causes of her right hip pain. She was discharged with diagnosis of likely musculoskeletal pain without fracture or dislocation. However, since then she has continued to have constant right hip pain. She is unable to find a comfortable position. She had some dysuria earlier this week but started cefdinir for UTI 24 hours ago so dysuria has resolved. She also has had poor appetite over the last 2 days and increased fatigue. Admitted for further treatment and work up. Hospital Course Hospital Course Hospital Course: 73-year-old female with PMHx of hypertension, CKD, fall 09/05 presents with continued right hip pain since her fall. On 09/05 patient presented to this emergency department after having a mechanical fall onto her right hip. he had some dysuria earlier this week but started cefdinir for UTI 24 hours ago so dysuria has resolved. She also has had poor appetite over the last 2 days and increased fatigue.initial labs showed sodium on 122 trending down from previous visit. UA showed possible UTI. Findings discussed with ED. medicine agreed to admit for further management. Therapy working with patient. Concern for slow improvement in hyponatremia and severe back pain from sciatica after her recent fall. Continues to require inpatient management. Problems addressed as follows: -HYponatremia. likely secondary to poor intake with concomitance diuresis , other differential includes pain induced SIADH Slowly worsening. Patient Na level continue to worse even on Sodium tablets, patient is not safe to discharge to SNF, patient needs higher level of care for nephrology evaluation, patient will be dischagred in stable condition Na level of 119 today dropped from 120 yesterday. Anxiety/depression: Continue BuSpar 20 mg 3 times a day with meals. Continue citalopram 10 mg daily. Hypertension: Decrease lisinopril to 40 mg once daily Initiate carvedilol 12.5 mg twice daily Continue amlodipine 5 mg daily. For back pain/sciatica: Initiate dexamethasone 6 mg IV daily. Increase gabapentin to 200 mg 3 times a day. Patient has pain management follow-up on Wednesday as an outpatient. Will continue hydrocodone 5/325 as needed every 6 hours for severe breakthrough pain along with Toradol 15 mg IV every 6 hours as needed for moderate to severe pain. Initiate melatonin 5 mg nightly for sleep Suspected urinary tract infection: Ceftriaxone IV 1 g 24 hours Nausea: Continue Zofran as needed every 8 hour PT and OT continue to work with patient during admission Patient has been accepted to [facility], will discharge on Wednesday potentially Lovenox for DVT ppx On protnix Full code Exam Data for Last 24 hours Vital signs and Labs for Last 24 Hours: Temp Pulse Resp BP Pulse Ox O2 Del Method 97.5 F L 76 18 160/85 H 98 Room Air 09/12/23 08:00 09/12/23 08:00 09/12/23 08:00 09/12/23 08:00 09/12/23 08:00 09/12/23 11:00 Laboratory Results - last 24 hr 09/12/23 06:32: Sodium 119 L, Potassium 4.1, Chloride 89 L, Carbon Dioxide 30, Anion Gap 4.1 L, BUN 29 H, Creatinine 0.90, Estimated Creat Clear 48, Estimated GFR 61, Est GFR ( Amer) 74, Glucose 112 H, Calcium 8.7, Total Bilirubin 1.2, AST 251 H, ALT 163 H D, Alkaline Phosphatase 56, Total Protein 5.8 L, Albumin 3.5, Globulin 2.3, Albumin/Globulin Ratio 1.5 I & O for Last 24 hours: Intake & Output 09/09/23 09/10/23 09/11/23 09/12/23 23:59 23:59 23:59 23:59 Intake Total 240 / 855 1315 / 1815 1220 / 1340 360 / 360 Output Total 101 / 101 400 / 400 800 / 800 350 / 350 Balance 139 / 754 915 / 1415 420 / 540 10 / 10 Weight 52 kg 52 kg 60.328 kg 60.328 kg Microbiology Reports for the Last 24 Hours: Microbiology 09/09/23 00:15 Urine,Catheterized Urine Culture - Final Constitutional Constitutional: no acute distress *Routine HEENT Exam Head: Present normocephalic Eye: Present EOMI and PERRL ENT: Present mucous membranes moist *Routine Neck Exam Neck: Present supple; Absent lymphadenopathy *Routine Respiratory Exam Respiratory: Present CTA bilaterally *Routine Cardiovascular Exam Cardiovascular: Present RRR *Routine Abdominal Exam Abdominal: Present soft and normoactive bowel sounds; Absent tenderness *Routine Extremities Exam Extremities: Absent cyanosis, clubbing or edema *Routine Skin Exam Skin: Present warm; Absent rash *Routine Neurological Exam Neurological: Present alert and oriented X3 Results Data Completed and Pending Labs on day of discharge: Labs from last 24 hours 09/12/23 06:32 Sodium 119 L Potassium 4.1 Chloride 89 L Carbon Dioxide 30 Anion Gap 4.1 L BUN 29 H Creatinine 0.90 Estimated Creat Clear 48 Estimated GFR 61 Est GFR ( Amer) 74 Glucose 112 H Calcium 8.7 Total Bilirubin 1.2 AST 251 H ALT 163 H D Alkaline Phosphatase 56 Total Protein 5.8 L Albumin 3.5 Globulin 2.3 Albumin/Globulin Ratio 1.5 DS: Diagnosis Discharge Diagnosis (1) Acute hyponatremia: Status: Acute Code(s): E87.1 - Hypo-osmolality and hyponatremia (2) Urinary tract infection: Status: Suspected Code(s): N39.0 - Urinary tract infection, site not specified Qualifiers: Urinary tract infection type: acute pyelonephritis Qualified Code(s): N10 - Acute pyelonephritis (3) Sciatica: Status: Acute Code(s): M54.30 - Sciatica, unspecified side (4) Nausea: Status: Acute Code(s): R11.0 - Nausea (5) Acute pain of right hip: Status: Acute Code(s): M25.551 - Pain in right hip (6) Hypertension: Status: Chronic Code(s): I10 - Essential (primary) hypertension Qualifiers: Hypertension type: unspecified Qualified Code(s): I10 - Essential (primary) hypertension Problem details: Persistent, active follow-up with [facility] cardiology appointment 03/31/2023 (7) Anxiety disorder: Status: Acute Code(s): F41.9 - Anxiety disorder, unspecified Qualifiers: Anxiety disorder type: unspecified anxiety disorder Qualified Code(s): F41.9 - Anxiety disorder, unspecified Meds Home Medications and Allergies Home Medications Medication Instructions Recorded Confirmed Type buspirone 10 mg tablet 20 mg PO BIDWMEAL Anxiety 05/29/22 09/09/23 History omeprazole 20 mg tablet,delayed 20 mg PO DAILY GERD 07/26/22 09/09/23 History release benazepril 40 mg tablet 40 mg PO BID Hypertension 02/11/23 09/09/23 History multivitamin (Daily Multi-Vitamin 1 tab PO DAILY 03/03/23 09/09/23 History tablet) amlodipine 2.5 mg tablet 2.5 mg PO DAILY #30 tabs 05/11/23 09/09/23 Rx hydrochlorothiazide 25 mg tablet 25 mg PO DAILY #30 tabs 06/02/23 09/09/23 Rx escitalopram oxalate 10 mg tablet 5 mg PO AM Depression 09/07/23 09/09/23 History New Prescriptions to Start Prescriptions: Allergies Allergy/AdvReac Type Severity Reaction Status Date / Time No Known Allergies Allergy Verified 09/07/23 12:39 Discharge Plan Disposition Patient Disposition: Xfer Other Condition: Fair Discharge Order Discharge Orders: Discharge Order (Routine); Ordered 09/12/23 Ordered By: Manuel Obrien Follow up Plan Follow up with: Herminio Reyna MD [Staff Physician] - 09/13/23 10:00 am Prescriptions/Medication Reconciliation: Continued multivitamin [Daily Multi-Vitamin] Tablet 1 tab PO DAILY amlodipine 2.5 mg tablet 2.5 mg PO DAILY Qty: 30 11RF hydrochlorothiazide 25 mg tablet 25 mg PO DAILY Qty: 30 2RF buspirone 10 mg tablet 20 mg PO BIDWMEAL Patient Comments: TAKE 1 TABLET BY MOUTH THREE TIMES DAILY benazepril 40 mg tablet 40 mg PO BID Patient Comments: TAKE 1 TABLET BY MOUTH ONCE DAILY FOR BLOOD PRESSURE omeprazole 20 mg Tablet,Delayed Release (Dr/Ec) 20 mg PO DAILY escitalopram oxalate 10 mg Tablet 5 mg PO AM Rx Instructions: take 1/2 tab po daily (5mg dose) Problem Reconciliation Problems Reviewed?: Yes Patient Discharge Instructions ACTIVITY: Continue current activity DIET: continue same diet Patient Instructions: DI for Hyponatremia Providers Primary Care Provider: Farooq Lee Admit Provider: Micky Aquino Attending Provider: Micky Aquino
== END 2023-09-12 15:30 | disposition short-term general hospital (02) | DRG 641 ==
LOC: ER 09-09 01:52 → 2ND 09-09 08:06
PROVIDERS: Internal Medicine; Nurse Practitioner Family; Admitting Provider Internal Medicine Adolescent Medicine; Emergency Provider Emergency Medicine; PCP Internal Medicine; Visit Provider Internal Medicine Adolescent Medicine
DX: E87.1 Hypo-osmolality and hyponatremia (principal); N39.0 Urinary tract infection, site not specified; M25.551 Pain in right hip; F41.9 Anxiety disorder, unspecified; M54.30 Sciatica, unspecified side; I12.9 Hypertensive chronic kidney disease with stage 1 through stage 4 chronic kidney disease, or unspecified chronic kidney disease; N18.9 Chronic kidney disease, unspecified; F32.A Depression, unspecified; R11.0 Nausea
CPT/HCPCS: 36415; 71045; 73502; 73552; 74177; 80048; 80053; 81001; 82150; 83735; 83930; 84540; 85007; 85025; 87086; 93005; 96360; 96361; 96372; 97110; 97163; 97166; 97530; 99285; J0696; J2405; Q9967

== ENCOUNTER 2024-01-25 14:18 | Outpatient (CLI) | payer MEDICARE, OTHER, SELFPAY ==
--- NOTE | 2024-01-25 14:20 | CA_ITS ---
APPROVED REPORT EXAM: Comprehensive 2D, Doppler, and color-flow Echocardiogram Coroner Technician: Amanda Park CRT Ht: 5 ft 3 in Wt: 116lbs BSA: 1.53 BP: 154/68 mmHg Indications: Abnormal ECG, Peripheral Edema, Hyperlipidemia, HX PERICARDIAL EFFUSION 2D Dimensions LA Volume 17.10 mL LA Volume Index 11.10 mL/m2 (M/F) 16-34 M-Mode Dimensions RVDd 2.50 cm (0.9-2.6) LA Diam 2.53 cm (1.9-4.0) LVDd 4.48 cm (3.5-5.7) LVDs 2.47 cm (3.5-5.7) IVSd 0.64 cm (0.6-1.1) PWd 0.73 cm (0.6-1.1) EF (Teich) 76.30% FS 44.90% EDV (Teich) 91.50 mL TAPSE 2.80 (<1.7) ESV (Teich) 21.70 mL LV Diastology MED A' 10.50 cm/s LAT A' 15.40 cm/s Aortic Valve AO Peak GR. 6.20 mmHg Tricuspid Valve TR P. Velocity 228.00 cm/s RAP Estimate 10.00 mmHg RVSP 30.90 mmHg Left Ventricle The left ventricle is normal size. The left ventricular systolic function is normal. The left ventricular ejection fraction is within the normal range. There is increased LV wall thickness. There is normal LV segmental wall motion. The left ventricular diastolic function is normal. LVEF is 60%. Right Ventricle Right ventricle is mildly dilated. The right ventricular systolic function is normal. Atria The left atrium size is normal. The right atrium size is normal. There is no Doppler evidence of interatrial shunt. Aortic Valve The aortic valve is mildly thickened. There is no aortic valvular stenosis. Trace aortic regurgitation. Mitral Valve The mitral valve leaflets are mildly thickened. No evidence of mitral valve stenosis. Trace mitral regurgitation. Tricuspid Valve The tricuspid valve leaflets are thin and pliable. Mild tricuspid regurgitation. RVSP is normal. Pulmonic Valve The pulmonary valve is normal in structure. Trace pulmonic regurgitation. Great Vessels The aortic root is normal in size. The ascending aorta is not well visualized. IVC is normal in size and collapses >50% with inspiration. Pericardium Trivial, posterior pericardial effusion is present. No echo indications of tamponade. Other Information Study Quality: Fair Conclusion Normal biventricular systolic function. Mild RV dilation. Mild TR. Trivial, posterior pericardial effusion is present. No echo indications of tamponade. Electronically signed by : Chrissie Shannon MD 01/27/2024 13:25:15
== END 2024-01-25 23:59 | disposition home or self-care (01) ==
LOC: RT 14:18
PROVIDERS: PCP Internal Medicine; Visit Provider Nurse Practitioner Family
DX: I51.7 Cardiomegaly (principal); R94.31 Abnormal electrocardiogram [ECG] [EKG]
CPT/HCPCS: 93306

== ENCOUNTER 2024-01-27 10:34 | Outpatient (CLI) | payer MEDICARE, OTHER, SELFPAY ==
[2024-02-01 10:13] LABS: Vitamin E Alpha Tocopherol 9.1 mg/L (9.0-29.0); Vitamin E Gamma Tocopherol 0.8 mg/L (0.5-4.9)
[2024-02-06 20:28] LABS: Vitamin B6 20.1 ug/L (3.4-65.2)
== END 2024-01-27 23:59 | disposition home or self-care (01) ==
LOC: LAB 10:36
PROVIDERS: PCP Internal Medicine; Visit Provider Specialist
DX: D64.9 Anemia, unspecified (principal); R29.2 Abnormal reflex; R20.2 Paresthesia of skin; R25.2 Cramp and spasm
CPT/HCPCS: 36415; 84207; 84446

== ENCOUNTER 2024-01-28 10:39 | Outpatient (CLI) | payer MEDICARE, OTHER, SELFPAY ==
[2024-01-28 11:41] LABS: Basophils % 0.5 % (0.1-2.0); Eosinophils # 0.1 K/mm3 (0.0-0.4); Eosinophils % 0.7 % (0.1-12.0); Hematocrit 42.1 % (37.0-47.0); Hemoglobin 13.5 g/dL (12.2-16.2); Lymphocytes # 1.4 K/mm3 (0.7-4.5); Lymphocytes % 19.6 % (10-50); Mean Corpuscular HGB Conc 32.1 g/dL (31.8-35.4); Mean Corpuscular Hemoglobin 29.7 pg (27.0-31.2); Mean Corpuscular Volume 92.4 fl (81-99); Mean Platelet Volume 8.5 fl (7.4-10.4); Monocytes # 0.5 K/mm3 (0.1-1.0); Monocytes % 6.3 % (1.7-9.3); Neutrophils # 5.2 K/mm3 (1.8-7.8); Neutrophils % 72.9 % (37.0-80.0); Platelet Count 168 K/mm3 (142-424); Red Blood Count 4.56 M/mm3 (4.20-5.40); White Blood Count 7.1 K/mm3 (4.8-10.8)
[2024-01-28 12:27] LABS: Alanine Aminotransferase 13 U/L (12-78); Albumin Level 4.2 g/dl (3.5-5.0); Albumin/Globulin Ratio 1.7 (1.1-1.8); Alkaline Phosphatase 60 U/L (38-126); Anion Gap 9.7 mEq/L (5-15); Aspartate Amino Transferase 20 U/L (14-36); Bilirubin,Total 0.7 mg/dl (0.2-1.3); Blood Urea Nitrogen 24 mg/dl (7-17); Calcium 9.4 mg/dl (8.4-10.2); Carbon Dioxide 30 mmol/L (22.0-30.0); Chloride 102 mmol/L (98-107); Estimated Glomerular Filt Rate 49 ml/min (>60); GFR (African American) 59 ML/MIN (>60); Globulin 2.5 g/dL (1.3-3.2); Glucose 71 mg/dl (74-100); Potassium 4.7 mmoL/L (3.5-5.1); Sodium 137 mmol/L (136-145); Total Protein,Serum 6.7 g/dl (6.3-8.2)
[2024-01-28 13:03] LABS: Iron 82 ug/dL (37-170)
[2024-01-28 13:15] LABS: Total Iron Binding Capacity 292 ug/dL (265-497)
[2024-01-28 13:34] LABS: Vitamin B12 312 pg/mL (239-931)
[2024-01-28 13:40] LABS: Ferritin 49.3 ng/ml (11.1-264)
[2024-01-31 12:10] LABS: Albumin 4.2 g/dL (2.9-4.4); Alpha-1-Globulin 0.2 g/dL (0.0-0.4); Alpha-2-Globulin 0.6 g/dL (0.4-1.0); Gamma Globulin 0.9 g/dL (0.4-1.8); Protein, Total 6.8 g/dL (6.0-8.5)
[2024-02-01 04:41] LABS: Zinc 68 ug/dL (44-115)
[2024-02-01 07:12] LABS: Vitamin B1 146.6 nmol/L (66.5-200.0)
[2024-02-04 10:18] LABS: Vitamin E Alpha Tocopherol 9.7 mg/L (9.0-29.0); Vitamin E Gamma Tocopherol 0.9 mg/L (0.5-4.9)
[2024-02-06 18:20] LABS: Vitamin B6 17.3 ug/L (3.4-65.2)
[2024-02-09 08:33] LABS: PDF SCANNED IMAGE
== END 2024-01-28 23:59 | disposition home or self-care (01) ==
PROVIDERS: PCP Internal Medicine; Visit Provider Specialist
DX: D64.9 Anemia, unspecified (principal); R29.2 Abnormal reflex; G62.9 Polyneuropathy, unspecified; M21.379 Foot drop, unspecified foot; Z68.21 Body mass index [BMI] 21.0-21.9, adult
CPT/HCPCS: 80053; 82525; 82607; 82728; 82746; 83540; 83550; 84155; 84165; 84207; 84425; 84446; 84630; 85025; 86334

== ENCOUNTER 2024-02-15 14:08 | Outpatient (CLI) | payer MEDICARE, OTHER, SELFPAY ==
--- NOTE | 2024-02-15 14:08 | MR_ITS ---
FINAL REPORT CLINICAL HISTORY: Eval for Cervical Myelopathy COMPARISON: None FINDINGS: Multiplanar MR imaging of the cervical spine was performed without contrast. On the sagittal T2-weighted images, disc degeneration is seen throughout. There is no evidence of fracture. The vertebral alignment is normal. The cervical spinal cord has an unremarkable appearance without evidence of mass, edema or syrinx. No significant canal stenosis is identified. The cervicomedullary junction is normal. C2-3: A central protrusion is present which mildly indents the thecal sac. C3-4: A small disc osteophyte complexes present, with a small central disc protrusion. C4-5: Disc osteophyte complexes present with severe right and moderate left neural foraminal narrowing. C5-6: An annular bulge is present with uncovertebral osteophytes, and mild right neural foraminal narrowing. C6-7: Disc osteophyte complex is present without significant canal stenosis or neural foraminal narrowing. C7-T1: There is no significant canal stenosis or neural foraminal narrowing. IMPRESSION: Multilevel cervical degenerative change as described above, most severe at the C4-5 level. Reviewed, Interpreted and Dictated by Miko Mcghee III, MD Transcribed by Linda Rios Authenticated and [facility]
--- NOTE | 2024-02-15 14:08 | MR_ITS ---
FINAL REPORT CLINICAL HISTORY: Spasticity FINDINGS: Multiplanar MR imaging of the brain was performed without contrast. There is mild age-appropriate atrophy. There are scattered foci of increased T2 signal in the cerebral white matter that have a nonspecific appearance but likely represent mild chronic ischemic/gliotic changes. There is no evidence of intracranial hemorrhage or mass. No abnormal ventricular dilatation is identified. No abnormal extra-axial fluid collection is seen. No abnormality is seen on the diffusion weighted images. The posterior fossa and brainstem are unremarkable. Normal major vessel vascular flow voids are seen. There are calcifications of several bilateral mastoid air cells. IMPRESSION: Age-appropriate atrophy and mild chronic ischemic/gliotic changes. No acute intracranial abnormality. Reviewed, Interpreted and Dictated by Miko Mcghee III, MD Transcribed by Mariam Lopes Authenticated and [facility]
== END 2024-02-15 23:59 | disposition home or self-care (01) ==
LOC: RAD 14:08
PROVIDERS: PCP Internal Medicine; Visit Provider Specialist
DX: G95.9 Disease of spinal cord, unspecified (principal); R29.2 Abnormal reflex; R60.0 Localized edema; R25.2 Cramp and spasm; I10 Essential (primary) hypertension
CPT/HCPCS: 70551; 72141

== ENCOUNTER 2024-02-18 11:42 | Outpatient (CLI) | payer MEDICARE, OTHER, SELFPAY ==
[2024-02-17 16:08] VITALS: BMI 20.7
--- NOTE | 2024-02-18 11:48 | CT_ITS ---
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 A noncontrast coronary calcium scan was performed. A CT attenuation threshold of 130 Hounsfield units (HU) was used for the detection of calcium in contiguous voxels of 1 sq mm in area to be counted as individual lesions. Bolus tracking in the ascending aorta with a threshold of 180 HU was performed. Immediately afterwards, ECG synchronized cardiac CT was then performed from the cardiac base to apex using retrospective gating with ECG tube current modulation. A total of 85 mL of Isovue 370 mg/mL contrast medium was administered at 5 mL/sec followed by a saline flush using a biphasic injection protocol. A tube voltage of 120 KVp was used. The patient received the following medications prior to the cardiac CT. 75 mg of oral metoprolol 15 mg of oral ivabradine 0.8 mg of sublingual nitroglycerin The average heart rate at the time of acquisition was 66 bpm and regular. Image Reconstruction Transaxial images were reconstructed at 0.67 mm slide thickness. Data was reviewed interactively on an advanced workstation capable of 2 and 3-dimensional displays in all conventional reconstruction formats, including multiplanar reformations, maximum intensity projections, curved multiplanar reformations, and volume rendered reconstructions. When applicable, selected routine images describing the relevant coronary anatomy and pathology were saved and sent to PACS. Complications None Technical Quality Overall image quality was good. Coronary artery opacification was adequate. Total DLP (Dose-Length Product) is 1318.7 mGy-cm. The reported value represents the total of one or more individual components during the CT acquisition of this date and at this time, and as such, the same value may appear in more than one CT report depending on the interpreting/reporting physicians. COMPARISON None FINDINGS CT Coronary Calcium Scoring LMA (Left Main Artery) = 0 LAD (Left Anterior Descending) = 7 LCX (Left Coronary Circumflex) = 0 RCA (Right Coronary Artery) = 0 Total Calcium Score = 7 using the AJ-130 method. The observed calcium score of 7 is at 37th percentile for subjects of the same age, sex, and race/ethnicity. The interpretation of the calcium heart score is based on the following continuum*: 0 = no calcified plaque detected (risk of coronary artery disease is very low ??? less than 5%) 1-10 = calcium detected in extremely minimal levels (risk of coronary diseases is still low ??? less than 10%) 11-100 = mild levels of plaque detected with certainty (mild or minimal narrowing of heart arteries is likely) 101-400 = definite,at least moderate levels of plaque detected (relatively high risk of a heart attack within 3-5 years) >401-999 = extensive levels of plaque detected (high risk of heart attack, high levels of vascular disease are present, high likelihood of at least one significant coronary narrowing) *The calcium heart score quantifies the burden of coronary calcification/plaque in the coronary arteries. The calcium heart score is not able to evaluate the presence or burden of non-calcified (i.e. soft) plaque. There is also identifiable calcification in descending thoracic aorta. Coronary CT Angiography The coronary arterial system is right dominant. Quantitative Stenosis Grading: Left Main (LM): The left main originates normally from the left sinus of Valsalva. The LM bifurcates into the left anterior descending artery and left circumflex artery. The LM is patent with no evidence of atherosclerosis. Left Anterior Descending (LAD) and Diagonal Branches: The LAD gives off 3 diagonal branch(es). There is noncalcified plaque in the proximal LAD segment, with < 30% luminal stenosis. There is also calcified plaque in the mid LAD segment with up to 30-50% luminal stenosis. There is no evidence of LAD-myocardial bridge. Left Circumflex (LCX) and Obtuse Marginals (OM): The LCX gives off 2 Obtuse Marginal (OM) branch(es). The LCX and its branches are patent with no evidence of atherosclerosis. Right Coronary Artery (RCA): The RCA originates normally from the right sinus of Valsalva. The RCA gives off a posterior descending artery (PDA) and posterolateral (PL) branches. The RCA and its branches are patent with no evidence of atherosclerosis. Non-Coronary Cardiac Findings: Analysis of the left ventricular (LV) structure and function was performed after 3-D reconstruction of the LV from axial images, with user-corrected automatic contouring for assessment of LV volumes and user-defined reconstruction from oblique planes for measurement of 3-D cardiac structure and function. -The left ventricle systolic function is normal. -There is no left atrial appendage filling defect. Two right pulmonary veins and two left pulmonary veins drain normally into the left atrium. -No pericardial thickening or calcification. -Central and branch pulmonary arteries in the [id number] are unremarkable. -Thoracic aorta within the visualized thoracic aortic-branches in the [id number] is unremarkable. Extracardiac Structures No significant extra-cardiac findings. Note, however, that this study is focused on the cardiac findings. IMPRESSION -Presence of coronary calcification with an Agatston score = 7 using the AJ-130 method. -The observed calcium score of 7 is at 37th percentile for subjects of the same age, sex, and race/ethnicity. -Mild non-obstructive plaque in the proximal and mid-LAD segments. No evidence of significant flow-limiting atherosclerosis of the coronary arteries. -CAD-RADS 2. Management recommendations per ACC/AHA guidelines*, as clinically appropriate. *Recommendations: CAD RADS 0: Reassurance. Consider non-atherosclerotic causes of chest pain. CAD RADS 1: Consider non-atherosclerotic causes of chest pain. Consider preventive therapy and risk factor modification. CAD RADS 2: Consider non-atherosclerotic causes of chest pain. Consider preventive therapy and risk factor modification, particularly for patients with nonobstructive plaque in multiple segments. CAD RADS 3: Consider further functional testing. Consider symptom-guided anti-ischemic and preventive pharmacotherapy as well as risk factor modification per published guideline statements. CAD RADS 4A: Consider further functional testing or invasive coronary angiography with revascularization per published guideline statements. Consider symptom-guided anti-ischemic and preventive pharmacotherapy as well as risk factor modification per published guideline statements. CAD RADS 4B: Invasive coronary angiography recommended with revascularization per published guideline statements. Consider symptom-guided anti-ischemic and preventive pharmacotherapy as well as risk factor modification per published guideline statements. CAD RADS 5: Consider invasive angiography and/or viability assessment with revascularization per published guideline statements. Consider symptom-guided anti-ischemic and preventive pharmacotherapy as well as risk factor modification per published guideline statements. CRITICAL RESULT None COMMUNICATION Per this written report The coronary and cardiac findings of this CCTA were reviewed, reported, and signed by Calvin Shannon MD (Fashion Design Professor) Conclusion Electronically signed by : Chrissie Shannon MD 02/21/2024 11:17:32
[2024-02-18 11:58] VITALS: BMI 18.8
[2024-02-18] MEDS: METOPROLOL TARTRATE 50MG TABLET PO (12:12)
[2024-02-18] MEDS: IVABRADINE HCL 7.5MG TABLET PO (12:13)
[2024-02-18] MEDS: METOPROLOL TARTRATE 25MG TABLET 25 MG (12:13)
[2024-02-18 12:50] VITALS: BP 193/107; PULSE 67; RESP 18; O2SAT 98
[2024-02-18] MEDS: NITROGLYCERIN 0.4MG SL TABLET SL (12:50)
[2024-02-18 12:53] VITALS: BP 175/94; PULSE 65; RESP 16; O2SAT 98
[2024-02-18 12:56] VITALS: BP 173/88; PULSE 64; RESP 16; O2SAT 99
[2024-02-18] MEDS: METOPROLOL TARTRATE 5MG/5ML VIAL 5 MG IV (12:56)
[2024-02-18 12:59] VITALS: BP 152/87; PULSE 65; RESP 18; O2SAT 99
[2024-02-18] MEDS: IOPAMIDOL-370 (76%);100ML BOTTLE 85 ML IV (13:09)
[2024-02-18] MEDS: 0.9 % SODIUM CHLORIDE 50 ML VIAL IV (13:09)
[2024-02-18] MEDS: SODIUM CHLORIDE 0.9% 10ML SYR (RAD ONLY) 10 ML IV (13:09)
[2024-02-18 13:15] VITALS: BP 146/79; PULSE 69; RESP 18; O2SAT 97
== END 2024-02-18 13:15 | disposition home or self-care (01) ==
PROVIDERS: PCP Internal Medicine; Visit Provider Nurse Practitioner Family
DX: R94.31 Abnormal electrocardiogram [ECG] [EKG] (principal); R06.00 Dyspnea, unspecified; I31.39 Other pericardial effusion (noninflammatory); R53.83 Other fatigue; I10 Essential (primary) hypertension
CPT/HCPCS: 75574; Q9967

== ENCOUNTER 2024-03-09 14:49 | Outpatient (CLI) | payer MEDICARE, OTHER, SELFPAY ==
[2024-03-09 15:40] LABS: Chloride 106 mmol/L (98-107)
[2024-03-09 15:41] LABS: Potassium 4.8 mmoL/L (3.5-5.1); Sodium 136 mmol/L (136-145)
[2024-03-09 15:43] LABS: Blood Urea Nitrogen 17 mg/dl (7-17); Estimated Glomerular Filt Rate 49 ml/min (>60); GFR (African American) 59 ML/MIN (>60)
[2024-03-09 15:44] LABS: Anion Gap 4.8 mEq/L (5-15); Calcium 8.9 mg/dl (8.4-10.2); Carbon Dioxide 30 mmol/L (22.0-30.0); Glucose 81 mg/dl (74-100)
== END 2024-03-09 23:59 | disposition home or self-care (01) ==
LOC: LAB 14:50
PROVIDERS: PCP Internal Medicine; Visit Provider Nurse Practitioner Family
DX: I10 Essential (primary) hypertension (principal); I31.39 Other pericardial effusion (noninflammatory); I31.8 Other specified diseases of pericardium; N18.9 Chronic kidney disease, unspecified; E78.5 Hyperlipidemia, unspecified; R60.9 Edema, unspecified; R06.09 Other forms of dyspnea
CPT/HCPCS: 36415; 80048

== ENCOUNTER 2024-03-15 14:17 | Outpatient (CLI) | payer MEDICARE, OTHER, SELFPAY ==
[2024-03-20 16:54] LABS: Zinc 59 ug/dL (44-115)
== END 2024-03-15 23:59 | disposition home or self-care (01) ==
LOC: LAB 14:18
PROVIDERS: PCP Internal Medicine; Visit Provider Specialist
DX: G95.9 Disease of spinal cord, unspecified (principal)
CPT/HCPCS: 36415; 82525; 84630

== ENCOUNTER 2024-03-30 13:12 | Outpatient (CLI) | payer MEDICARE, OTHER, SELFPAY ==
[2024-03-30 14:15] LABS: Anion Gap 3.7 mEq/L (5-15); Blood Urea Nitrogen 16 mg/dl (7-17); Calcium 9.5 mg/dl (8.4-10.2); Carbon Dioxide 32 mmol/L (22.0-30.0); Chloride 103 mmol/L (98-107); Estimated Glomerular Filt Rate 54 ml/min (>60); GFR (African American) 66 ML/MIN (>60); Glucose 92 mg/dl (74-100); Potassium 4.7 mmoL/L (3.5-5.1); Sodium 134 mmol/L (136-145)
== END 2024-03-30 23:59 | disposition home or self-care (01) ==
LOC: LAB 13:14
PROVIDERS: PCP Internal Medicine; Visit Provider Nurse Practitioner
DX: R60.0 Localized edema (principal)
CPT/HCPCS: 36415; 80048

== ENCOUNTER 2024-04-17 11:00 | Outpatient (RCR) | payer MEDICARE, OTHER, SELFPAY ==
--- NOTE | 2024-03-06 12:08 | [facility].PTOPEV ---
PT Outpatient Evaluation Rehab PT Outpatient Evaluation Start: 03/06/24 10:01 Freq: Status: Active Protocol: Document 03/06/24 10:01 PDESEROUX (Rec: 03/06/24 12:08 PDESEROUX [id number]) E-signed By Shaun Hernandez, PT Outpatient Therapy Subjective History Subjective History Pt. is a 73 year old female who presents to [facility] Outpatient Physical Therapy Services in [place] for the initial evaluation this date(03/06/24) w/ c/o chronic and constant RLE weakness, numbness/ tingling, and foot drop of insidious onset since mid September of this year. Pt. reports being hospitalized in September secondary to hypokalemia and severe UTI. Pt. reports , I was out of it for two weeks, states, she was confused/alert and oriented x 0/unaware of situation at hand . Pt. reports she's dealing w/ increased stress secondary to losing her 3 months ago. Diagnostic imaging including brain and cervical spine MRI and nerve conduction WNL per pt. report. Pt. reports she was told she had RLE foot drop when she was discharged from the hospital and then to [facility]. Pt. vocalized participating in Physical Therapy at [facility] x100 days, and then transitioned to Home Health Physical Therapy for 1 month. Pt. reports working on ADL function w/ Home Health including ambulation and transfer training. Pt. c/o increased fatigue and weakness w/ activity. Pt. denies having any falls, however, vocalizes having a stumble while she was ambulating w/ her Home Health Physical Therapist w/o AD. Pt. c/o difficulty w/ ADLs including dressing and house ambulation secondary to weakness, foot drop, and being unsafe. Pt. reports numbness/tingling/ burning increases towards the end of the day and will wake her up in the middle of the night. Pt. also c/o increased BLE(R>L) edema especially after being up on my feet too much. Pt. vocalizes donning GRANT hose at home that manages BLE edema. Current medications include Gabapentin, Tylenol, B-12 injection. PMH includes kidney disease, cholecystectomy, tubal ligation, tonsillectomy, hypertension, anxiety/ depression disorder, and family history of pancreatic cancer. New diagnosis of cancer in past 12 No months? Chief Complaint Pain,Spasms,Stiff,Swelling, Paresthesia,Weakness Symptom Type Ache,Sharp,Dull,Burning, Numbness,Tingling Symptoms Relieved By Rest/Positioning,Brace/Support ,Activity Symptoms Aggravated By Standing,Physical Activity, Twisting,Walking Prior Functional Limitations None Current Functional Limitations Housework,Dressing,Sleeping, Standing,Recreation Activity, Walking,Stairs,Balance,Bending /Stooping Symptom Description Constant but Variable,Activity Dependent Level of pain today (0-10) 4 Pain scale - at its best (0-10) 5 Pain scale - at its worst (0-10) 6 Hip/Knee Eval MMT right Hip Flexion Strength Grade 3+ Fair+ Hip Abduction Strength Grade 3+ Fair+ Hip Adduction Strength Grade 3+ Fair+ Hip Extension Strength Grade 3+ Fair+ Gluteus Osman Strength Grade 3+ Fair+ Hip External Rotation Strength Grade 3+ Fair+ Hip Internal Rotation Strength Grade 3+ Fair+ Knee Extension Strength Grade 3+ Fair+ Knee Flexion Strength Grade 3+ Fair+ Knee Extensors Muscle Tone Description Rigidity Knee Flexors Muscle Tone Description Rigidity Hip Extensors Muscle Tone Description Rigidity Hip Flexors Muscle Tone Description Rigidity Ankle/Foot Eval Gait Observation General Gait Pattern Observation Antalgic Gait,Shuffling Step, Decrease Weight Bear (R), Decrease Stride Lngth (L) Assistive Device Ambulation Assistive Device Rolling Walker Palpation Tenderness right Ankle/Foot Palpation Findings Tenderness,Spasm Ankle/Foot Palpation Overall Comment quadriceps/plantarflexors mm. groups ROM Ankle/Foot Dorsiflexion w/Knee Extended +40 Active Range Motion (degrees) Ankle/Foot Dorsiflexion w/Knee Extended +35 Passive Range (degrees) Ankle/Foot Plantar Flexion Active Range WNL of Motion (degrees) Ankle/Foot Eversion Active Range of 7 Motion (degrees) Ankle/Foot Eversion Passive Range of 11 Motion (degrees) Ankle/Foot Inversion Active Range of 13 Motion (degrees) Ankle/Foot Inversion Passive Range of 15 Motion (degrees) Ankle/Foot ROM Limitations Soft Tissue Tightness, Contracture,Muscle Weakness, Muscle Tone,Pain Great Toe ROM Limitations Soft Tissue Tightness, Contracture,Muscle Weakness, Pain MMT Ankle Dorsiflexion Strength Grade 3 Fair Ankle Plantarflexion Strength Grade 3+ Fair+ Foot Eversion Strength Grade 3+ Fair+ Foot Inversion Strength Grade 3+ Fair+ Ankle Dorsiflexors Muscle Tone Rigidity Description Neuro tests normal sensation to monofilament Yes Outpatient Therapy Assessment Impairments Problems/Impairmments Palpation Tenderness,Impaired Range of Motion,Impaired Strength,Impaired Endurance, Impaired Gait Pattern,Impaired Walking,Impaired Standing, Impaired Dressing,Impaired Household Care,Impaired Recreational Activities, Increased Edema,Subjective C/O Pain,Impaired Self Care/Self Management Prognosis Rehab Potential Good Comment w/ HEP compliancy Clinical Impression Consistent with Diagnosis Yes Consistent with RLE foot drop and weakness Short Term Goals Number of Weeks 2 Decrease Subjective C/O Pain Yes: worse:[id number] Improve Self Care/Self Management Yes: Pt. denies having any falls Patient to be Ind w/ HEP Yes Senior Care Goals Number of Weeks 4-6 Decreased Palpation Tenderness Yes: grade 1 +TTP to TTP assessment above Increase Range of Motion Pt. will demonstrate >85% improvements in RLE ankle/ft. A/PROM, >50% DF Increase Strength Yes: 4+ to 5/5 RLE MMT scores grossly Improve Transfers Yes: Pt. will be able to sit<> stand safely and IND. w/ FWW w /o difficulty Improve Gait Pattern with Assistive Yes: Pt. will be able to Device perform initial heel strike w/ RLE swing phase using FW Increase Ability to Walk Yes Increase Ability to Stand Yes Improve Ability to Dress Self Yes Improve Ability to Shower/Bathe Self Yes Improve LEFI Score Yes Decrease Subjective C/O Pain Yes: worse:2-3/10 Improve Self Care/Self Management Yes: Pt. denies having any falls. Patient to be Ind w/ Advanced HEP Yes Outpatient Therapy Plan of Care Treatment Plan May Include Therapeutic Exercise Including Home Yes Exercise Program Manual Therapy Techniques Yes Neuromuscular Re-education Yes Therapeutic Activities to Return to Yes Previous Functional/Work Level Gait Training Yes ADL/Self Care Education Yes Thermal Modalities Yes Electrical Stimulation Yes Ultrasound/Phonophoresis Yes Iontophoresis Yes Orthotics/Bracing/Splinting Yes Vasopneumatic Compression Pump Yes Massage Yes Eval/Re-Eval Yes Frequency Times per week 2 Duration Number of Weeks 4-6 Addendums This patient is a candidate for social No or vocational rehab? Patient/Guardian verbally acknowledges Yes understanding of treatment program and consents to further treatment? Patient/Guardian verbally acknowledges Yes understanding of diagnosis, prognosis and goals for treatment? Eval Complexity PT Charges 97276 - Moderate Complexity Shoulder/Elbow Eval Shoulder Objective Measurements Elbow Objective Measurements PHYSICIAN CERTIFICATION: I certify the specified therapy services for Birgit Estrada are required, authorized, and reviewed every 30 days.
== END 2024-05-03 08:01 | disposition home or self-care (01) ==
LOC: PT 11:00
PROVIDERS: Visit Provider Internal Medicine
DX: M21.371 Foot drop, right foot (principal); R53.1 Weakness
CPT/HCPCS: 97110; 97116; 97140; 97163; 97530

== ENCOUNTER 2024-04-24 16:00 | Outpatient (CLI) | payer MEDICARE, OTHER, SELFPAY ==
[2024-04-24 15:38] LABS: Microscopic, Urine URINE MICROSCOPIC (MICROSCOPIC)
[2024-04-24 15:58] LABS: Appearance,Urine CLEAR (Clear); Bilirubin,Urine Negative (Negative); Blood, Urine TRACE-I (Negative); Color,Urine YELLOW (Yellow); Glucose,Urine (UA) Negative (Negative); Ketones,Urine Negative (Negative); Leukocyte Esterase,Urine Negative (Negative); Nitrate,Urine Negative (Negative); PH,Urine 6.5 (5.0-8.5); Protein,Urine Negative (Negative); Specific Gravity, Urine 1.025 (1.005-1.030); Urobilinogen,Urine 0.2 EU/dl (0.2)
[2024-04-24 16:44] LABS: Bacteria,Urine Trace /lpf
== END 2024-04-24 23:59 | disposition home or self-care (01) ==
LOC: LAB.DROPOF 04-25 08:48
PROVIDERS: PCP Urology; Visit Provider Urology
DX: R31.9 Hematuria, unspecified (principal)
CPT/HCPCS: 81001; 87086

== ENCOUNTER 2024-04-25 13:43 | Outpatient (CLI) | payer MEDICARE, OTHER, SELFPAY ==
[2024-04-25 14:04] LABS: Basophils # 0.1 K/mm3 (0-0.2); Basophils % 1.5 % (0.1-2.0); Eosinophils # 0.1 K/mm3 (0.0-0.4); Eosinophils % 0.7 % (0.1-12.0); Hematocrit 38.4 % (37.0-47.0); Lymphocytes # 1.1 K/mm3 (0.7-4.5); Lymphocytes % 15.3 % (10-50); Mean Corpuscular Hemoglobin 30.6 pg (27.0-31.2); Mean Corpuscular Volume 90.1 fl (81-99); Monocytes # 0.5 K/mm3 (0.1-1.0); Monocytes % 6.2 % (1.7-9.3); Neutrophils # 5.6 K/mm3 (1.8-7.8); Neutrophils % 76.4 % (37.0-80.0); Platelet Count 162 K/mm3 (142-424); Red Blood Count 4.26 M/mm3 (4.20-5.40); Red Cell Distribution Width 13.7 % (11.5-17.5); White Blood Count 7.3 K/mm3 (4.8-10.8)
[2024-04-25 14:24] LABS: Total Iron Binding Capacity 253 ug/dL (265-497)
[2024-04-25 14:36] LABS: Iron 78 ug/dL (37-170)
[2024-04-25 14:52] LABS: Ferritin 62.1 ng/ml (11.1-264)
--- NOTE | 2024-04-25 14:58 | XR_ITS ---
FINAL REPORT CLINICAL HISTORY: pain COMPARISON: 09/06/2023 FINDINGS: Three views of the right knee reveal no evidence of fracture or dislocation. The bony alignment is normal. Mild degenerative changes are noted. There is no evidence of joint effusion. No localized soft tissue abnormality is identified. IMPRESSION: Degenerative changes without acute abnormality identified. Reviewed, Interpreted and Dictated by Miko Mcghee III, MD Transcribed by Erica Escudero Authenticated and [facility]
--- NOTE | 2024-04-25 14:58 | XR_ITS ---
FINAL REPORT CLINICAL HISTORY: pain COMPARISON: None FINDINGS: Three views of the left knee reveal no evidence of fracture or dislocation. The bony alignment is normal. Mild degenerative changes are noted. There is a small joint effusion. No localized soft tissue abnormality is seen. IMPRESSION: Small joint effusion without acute abnormality identified. Reviewed, Interpreted and Dictated by Miko Mcghee III, MD Transcribed by Erica Escudero Authenticated and [facility]
== END 2024-04-25 23:59 | disposition home or self-care (01) ==
PROVIDERS: PCP Internal Medicine; Visit Provider Internal Medicine Medical Oncology
DX: D64.9 Anemia, unspecified (principal); M25.562 Pain in left knee; M25.462 Effusion, left knee; M25.561 Pain in right knee
CPT/HCPCS: 36415; 73560; 82728; 83540; 83550; 85025

== ENCOUNTER 2024-04-28 23:19 | Emergency (ER) | payer MEDICARE, OTHER, SELFPAY ==
[2024-04-28 23:21] VITALS: BP 213/88; PULSE 84; RESP 18; TEMP 36.6; O2SAT 99; BMI 19.2
[2024-04-28 23:30] VITALS: BP 211/90; PULSE 87; O2SAT 99
--- NOTE | 2024-04-28 23:35 | XR_ITS ---
PROCEDURE INFORMATION: Exam: XR Chest Exam date and time: 04/28/2024 11:41 PM Age: 74 years old Clinical indication: Other: HTN; Additional info: HTN, feeling off TECHNIQUE: Imaging protocol: Radiologic exam of the chest. Views: 1 view. COMPARISON: CR XR CHEST PORTABLE 09/12/2023 9:10 AM FINDINGS: Lungs: Unremarkable. No consolidation. Pleural spaces: Unremarkable. No pleural effusion. No pneumothorax. Heart/Mediastinum: Unremarkable. No cardiomegaly. Vasculature: Unremarkable. Bones/joints: Unremarkable. IMPRESSION: No acute findings.
--- NOTE | 2024-04-28 23:35 | CT_ITS ---
PROCEDURE INFORMATION: Exam: CT Head Without Contrast Exam date and time: 04/28/2024 11:50 PM Age: 74 years old Clinical indication: Pain; Headache; Additional info: HTN, headache TECHNIQUE: Imaging protocol: Computed tomography of the head without contrast. Radiation optimization: All CT scans at this facility use at least one of these dose optimization techniques: automated exposure control; mA and/or kV adjustment per patient size (includes targeted exams where dose is matched to clinical indication); or iterative reconstruction. COMPARISON: No relevant prior studies available. FINDINGS: Brain: There is age related atrophy. No hemorrhage. There is mild periventricular white matter hypodensity consistent with chronic small vessel disease. No mass effect. Cerebral ventricles: Ventricular enlargement secondary to parenchymal atrophy. Paranasal sinuses: Visualized sinuses are unremarkable. No fluid levels. Mastoid air cells: Visualized mastoid air cells are well aerated. Orbital cavities: The orbital contents are symmetric and normal. Bones: Unremarkable. No acute fracture. Soft tissues: Unremarkable. IMPRESSION: No acute intracranial abnormality.
--- NOTE | 2024-04-28 23:38 | ED_ITS ---
Discharge Plan Prescriptions Prescriptions: No Action multivitamin [Daily Multi-Vitamin] Tablet 1 tab PO DAILY melatonin 3 mg capsule 3 mg PO HS PRN (Reason: Sleep) buspirone 10 mg tablet 5 mg PO BID Qty: 180 1RF losartan 25 mg tablet 25 mg PO DAILY Qty: 90 1RF pantoprazole 40 mg tablet,delayed release (DR/EC) 40 mg PO DAILY Qty: 90 1RF aspirin 81 mg tablet,chewable 81 mg PO DAILY Qty: 90 1RF estradiol 0.01 % (0.1 mg/gram) cream See Rx Instructions vaginal .COMPLEX Qty: 42.5 2RF Rx Instructions: Using finger technique daily for two weeks and then twice weekly vaginally; Gemtesa 75 mg tablet 75 mg PO DAILY 30 Days Qty: 30 2RF oxybutynin chloride 10 mg tablet extended release 24hr 10 mg PO DAILY Qty: 90 1RF cyanocobalamin (vitamin B-12) 1,000 mcg/mL solution 1,000 mcg IM QMONTH vitamin E mixed 100 unit tablet 134 mg PO DAILY gabapentin 100 mg capsule 200 mg PO HS MDD 200 mg po qhs Qty: 60 5RF tizanidine 2 mg capsule 2 mg PO Q8H MDD 6 mg Qty: 90 5RF bumetanide 1 mg tablet 1 mg PO BID Qty: 180 2RF escitalopram oxalate 10 mg tablet 10 mg PO AM Qty: 30 2RF Referrals Follow up/Referrals: Farooq Lee MD [Primary Care Provider] - See instructions Activity Restrictions/Add. Instructions Additional Instructions/Restrictions: Please follow-up for formal ultrasound of the left lower extremity. Please follow-up with PCP for further discussion of your symptoms and blood pressure control. Monitor blood pressure at home. Please return to the emergency department if you develop any new or worsening symptoms or become concerned for your health. Clinical Impressions Clinical Impression: Muscle cramping, Headache, Hypertensive urgency Print Language Print Language: Sami Discharge ED Provider: Richardson Hoover Adult HPI General Chief complaint: Headache Stated complaint: murguia, hi bp, jittery Time Seen by Provider: 04/28/24 23:33 Mode of Arrival: Ambulatory Source of Information: Patient Limitations: Physical Limitations Description of Symptoms (Recalled from ER Triage Doc. by RN): Patient complains of a headache and elevated blood pressure since this morning History of Present Illness HPI narrative: 74-year-old female with history of hypertension, heart failure, overactive bladder, prior DVT presents for multiple complaints. Her primary complaint is that she feels like her legs are spasming and causing her some pain. She also reports that she has had a headache today which is not necessarily normal for her. She reports it was slow in onset, generalized in nature. She denies any vision changes numbness tingling weakness or any other neurologic symptoms besides the occasional muscle spasm. She also complains about worsening swelling in her left leg, previously the right leg was a bit swollen. Now they are both swollen but worse in the left leg. She also reports that her blood pressure has been higher than normal recently. She is on blood pressure medications. She reports that she started a new medication to help with her bladder overactivity recently. She denies any chest pain shortness of breath weakness. Related Data Home Medications ?Medication ?Instructions ?Recorded ?Confirmed multivitamin (Daily Multi-Vitamin 1 tab PO DAILY 03/03/23 04/25/24 tablet) melatonin 3 mg capsule 3 mg PO HS PRN Sleep 12/28/23 04/25/24 cyanocobalamin (vitamin B-12) 1,000 mcg IM QMONTH 03/15/24 04/25/24 1,000 mcg/mL injection solution vitamin E mixed 100 unit tablet 134 mg PO DAILY 03/15/24 04/25/24 Previous Rx's ?Medication ?Instructions ?Recorded aspirin 81 mg chewable tablet 81 mg PO DAILY #90 tabs 02/03/24 buspirone 10 mg tablet 5 mg (1/2 x 10 mg) PO BID Anxiety 02/03/24 #180 tabs losartan 25 mg tablet 25 mg PO DAILY #90 tabs 02/03/24 pantoprazole 40 mg tablet,delayed 40 mg PO DAILY #90 tabs 02/03/24 release bumetanide 1 mg tablet 1 mg PO BID #180 tabs 03/10/24 escitalopram oxalate 10 mg tablet 10 mg PO AM Depression #30 tabs 03/15/24 gabapentin 100 mg capsule 200 mg (2 x 100 mg) PO HS 03/15/24 Neuropathic pain #60 caps tizanidine 2 mg capsule 2 mg PO Q8H spasticity #90 caps 03/15/24 estradiol 0.01% (0.1 mg/gram) See Rx Instructions vaginal 04/24/24 vaginal cream .COMPLEX #42.5 grams oxybutynin chloride 10 mg 10 mg PO DAILY #90 tabs 04/24/24 tablet,extended release 24 hr vibegron 75 mg tablet (Gemtesa) 75 mg PO DAILY 30 days #30 tabs 04/24/24 Allergies Allergy/AdvReac Type Severity Reaction Status Date / Time No Known Allergies Allergy Verified 04/25/24 14:25 [facility] Disclaimer: The information contained in this section may have been updated after the patient was seen, as this information can be updated by other users. Medical History Myelopathy Dyspnea on exertion Other specified diseases of pericardium Localized swelling, mass and lump, trunk Anxiety disorder Pericardial effusion Hypertension Hyperlipidemia Edema Anxiety disorder Hypertension Persistent, active follow-up with [facility] cardiology appointment 03/31/2023 Surgical History History of tonsillectomy History of tubal ligation Hx of cholecystectomy Family History Mother Pancreatic cancer Brother Pancreatic cancer Sister Pancreatic cancer Social History Smoking Status: Never smoker alcohol intake: never current occupational status: retired and other Travel in the last 8 weeks: None household members: other housing: other caffeine: No Other Medical History Have you received the Flu Vaccine for this season: No Have you received the Pneumonia Vaccine: No ROS Obtained: Yes All systems reviewed & no additional complaints except as documented Physical Exam General General appearance: alert and in no apparent distress Head Head exam: atraumatic and normocephalic Eye Eye exam: Present normal appearance, PERRL and EOMI ENT ENT exam: Present normal oropharynx and normal external ear exam Neck Neck exam: Present normal inspection and full ROM Chest Chest inspection: Present normal inspection and symmetric chest wall rise; Absent tenderness Respiratory Respiratory exam: Present normal lung sounds bilaterally; Absent respiratory distress Cardiovascular Cardiovascular exam: Present regular rate and normal rhythm Abdominal Exam Abdominal exam: Present soft; Absent distention, tenderness or guarding Extremities Exam Extremities exam: Present normal inspection; Absent edema or joint swelling Back Exam Back exam: Present normal inspection; Absent tenderness Neurological Exam Neurological exam: Present alert and oriented X3; Absent motor sensory deficit Psychiatric Psychiatric exam: Present normal affect and normal mood Skin Skin exam: Present warm, dry and normal color Lymphatic Lymphatic Findings: no adenopathy Medical Decision Making Medical Records Medical records reviewed: Yes I reviewed the patient's medical records. Screening: Per USPSTF and CDC recommendations, given the prevalence of disease in our region, it is our hospital?s policy to screen for HIV and viral Hepatitis for all patients aged 18 and over and those with ongoing risk factors. Med Inquiry Pt receiving controlled substance: No Med was queried for this patient: No Vital Signs: 04/28/24 23:21 04/28/24 23:30 04/29/24 00:15 Temperature 97.9 F Temperature Source Oral Pulse Rate 87 92 H Pulse Rate [Right Radial] 84 Respiratory Rate 18 Blood Pressure 211/90 H 209/87 H Blood Pressure [Right Arm] 213/88 H Blood Pressure Mean [Right Arm] 129 Blood Pressure Source Blood Pressure Source [Right Arm] Automatic Cuff Blood Pressure Position Blood Pressure Position [Right Arm] Supine 02 Sat by Pulse Oximetry 99 99 98 Oxygen Delivery Method Room Air 04/29/24 00:30 04/29/24 01:00 04/29/24 01:24 Temperature Temperature Source Pulse Rate 87 104 H Pulse Rate [Right Radial] Respiratory Rate Blood Pressure 187/85 H 212/79 H 212/79 H Blood Pressure [Right Arm] Blood Pressure Mean [Right Arm] Blood Pressure Source Blood Pressure Source [Right Arm] Blood Pressure Position Blood Pressure Position [Right Arm] 02 Sat by Pulse Oximetry 97 95 Oxygen Delivery Method 04/29/24 01:26 04/29/24 01:29 04/29/24 01:30 Temperature Temperature Source Pulse Rate 94 H 80 76 Pulse Rate [Right Radial] Respiratory Rate Blood Pressure 195/80 H 195/80 H 161/69 H Blood Pressure [Right Arm] Blood Pressure Mean [Right Arm] Blood Pressure Source Automatic Cuff Blood Pressure Source [Right Arm] Blood Pressure Position Sitting Blood Pressure Position [Right Arm] 02 Sat by Pulse Oximetry 94 L 94 L 93 L Oxygen Delivery Method Room Air 04/29/24 01:32 04/29/24 01:45 04/29/24 02:01 Temperature Temperature Source Pulse Rate 80 71 72 Pulse Rate [Right Radial] Respiratory Rate Blood Pressure 161/69 H 117/53 L Blood Pressure [Right Arm] Blood Pressure Mean [Right Arm] Blood Pressure Source Automatic Cuff Blood Pressure Source [Right Arm] Blood Pressure Position Sitting Blood Pressure Position [Right Arm] 02 Sat by Pulse Oximetry 94 L 97 94 L Oxygen Delivery Method Room Air 04/29/24 02:34 04/29/24 02:37 Temperature 97.9 F Temperature Source Oral Pulse Rate 81 81 Pulse Rate [Right Radial] Respiratory Rate 18 Blood Pressure 149/63 H 152/84 H Blood Pressure [Right Arm] Blood Pressure Mean [Right Arm] Blood Pressure Source Automatic Cuff Blood Pressure Source [Right Arm] Blood Pressure Position Sitting Blood Pressure Position [Right Arm] 02 Sat by Pulse Oximetry 96 Oxygen Delivery Method Room Air Lab Data Lab results reviewed: Yes I reviewed the patient's lab results. Lab Results 04/28/24 23:45: WBC 8.3, RBC 4.52, Hgb 13.6, Hct 39.6, MCV 87.6, MCH 30.1, MCHC 34.4, RDW 13.8, Plt Count 185, MPV 8.0, Neut % (Auto) 71.0, Lymph % (Auto) 20.4, [place] % (Auto) 7.0, Eos % (Auto) 0.8, Baso % (Auto) 0.8, Neut # (Auto) 5.9, Lymph # (Auto) 1.7, [place] # (Auto) 0.6, Eos # (Auto) 0.1, Baso # (Auto) 0.1, Sodium 135 L, Potassium 3.9, Chloride 98, Carbon Dioxide 29, Anion Gap 11.9, BUN 14, Creatinine 0.90, Estimated Creat Clear 40, Estimated GFR 61, Est GFR ( Amer) 74, Glucose 113 H, Calcium 9.8, Total Bilirubin 0.6, AST 33, ALT 23, Alkaline Phosphatase 82, Troponin I < 0.01, NT-Pro-B Natriuret Pep 428 H, Total Protein 7.7, Albumin 4.9, Globulin 2.8, Albumin/Globulin Ratio 1.8, HIV 1&2 Antibody Rapid Nonreactive 04/28/24 23:45 04/28/24 23:45 Orders (Tests/Meds): ED MEDICATIONS Discontinued Medications Generic Name Dose Route Start Last Admin Trade Name Freq PRN Reason Stop Dose Admin Acetaminophen 500 mg 04/28/24 23:35 04/28/24 23:57 Acetaminophen 500mg Tab PO 04/28/24 23:36 500 mg ONCE ONE Administration Diazepam 2.5 mg 04/29/24 01:14 04/29/24 01:24 Diazepam 10mg/2ml Syringe IV 04/29/24 01:15 2.5 mg ONCE ONE Administration Magnesium Sulfate 2 gm in 50 mls @ 50 mls/hr 04/28/24 23:35 04/28/24 23:57 Magnesium Sulfate 2gm/50ml Premix IV 04/29/24 00:34 50 mls/hr ONCE ONE Administration Ketorolac Tromethamine 15 mg 04/28/24 23:35 04/28/24 23:57 Ketorolac 30mg/Ml Vial IV 04/28/24 23:36 15 mg ONCE ONE Administration Labetalol HCl 10 mg 04/29/24 01:14 04/29/24 01:24 Labetalol 20mg/4ml Syringe IV 04/29/24 01:15 10 mg ONCE ONE Administration Prochlorperazine Edisylate 5 mg 04/28/24 23:35 04/28/24 23:58 Prochlorperazine 10mg/2ml Vial IV 04/28/24 23:36 5 mg ONCE ONE Administration ORDERS Category Date Time Status CT head/brain wo con Stat Cat Scan 04/28/24 23:35 Completed CXR --portable [XR chest portable] Stat Exams 04/28/24 23:35 Completed POCUS Point of Care (ER Only) Stat Exams 04/28/24 23:36 Completed BNP [NT Pro Brain Natriuretic Pep.] Stat Lab 04/28/24 23:45 Completed CBC w/Auto Diff [Complete Blood Count Auto Diff] Stat Lab 04/28/24 23:45 Completed CMP [Comprehensive Metabolic Panel] Stat Lab 04/28/24 23:45 Completed HIV (1&2) Antibody Rapid Stat Lab 04/28/24 23:45 Completed Hep C Ab with Reflex to RNA Stat Lab 04/28/24 23:45 Received Troponin I Q3H Lab 04/28/24 23:45 Completed ECG Data Tracing #1: I reviewed this ECG and interpreted as documented below: Sinus rhythm, rate of 94, baseline artifact limits interpretation, no significant ST elevation, no arrhythmia. ECG initial impression date: 04/29/24 ECG initial impression time: 00:09 HEART Score History (anamnesis): Slightly suspicious ECG: Non-specific disturbance Age: >65 years Risk factors: 1-2 risk factors Troponin: </= normal limit HEART Score: 4 Medical Decision Narrative: 74-year-old female with history of hypertension, overactive bladder or heart failure, presents for multiple complaints including higher blood pressure than normal, unusual headache, left leg swelling.. History was obtained via interactive discussion with patient, family. See HPI for details. On arrival, patient is afebrile, hypertensive with blood pressure 210/90, moving all extremities spontaneously. Full physical exam performed and significant for asymmetric edema of the left lower extremity, no focal neurologic deficits. Differential includes but is not limited to hypertensive urgency, hypertensive emergency, DVT, intracranial pathology, electrolyte derangement, medication side effect. Patient was given low dose Tylenol, Toradol, Compazine magnesium for headache treatment. Workup initiated including CT head, CBC CMP BNP troponin EKG chest x- ray. On re-evaluation, patient [remains afebrile, HD stable.] Reports marked symptomatic improvement headache. Blood pressure remains elevated, around 190 systolic when I was in the room. She continues to complain of the muscle spasms. Patient was given 2.5 of Valium and 10 mg of IV labetalol. Laboratory workup independently interpreted by me and significant for no significant electrolyte derangements, normal renal function, no significant leukocytosis. Negative troponin, negative BNP. Single negative troponin will suffice. Imaging independently interpreted by me and significant for no evidence of acute intracranial abnormality. See radiology read for full review of final results. Bedside ultrasound was performed and interpreted by me and shows no evidence of left lower extremity DVT. Given patient history, exam and workup, patient's presentation most likely represents hypertensive urgency. I am not sure what is causing her muscle spasms, there is no significant electrolyte derangement or other pathology that I can find. Could be related to recent initiation of medications to reduce bladder spasms, as this is the only change in her medication recently. After the IV labetalol and Valium, patient's blood pressure dropped relatively precipitously to 160s and then continued to drop down to 120 systolic. Patient remained awake, alert and normal despite blood pressure drop. I spent extensive time discussion with patient and family regarding workup, symptomatic care, return precautions. They were discharged with a outpatient order for duplex ultrasound left lower extremity to formally assess for DVT. They were given strict return precautions and instructed to follow-up PCP as soon as possible. Procedures Risk/Benefits of Procedure(s) Were Explained: Yes Critical Care Critical Care Time Critical Care Time: No
[2024-04-28 23:56] LABS: Basophils # 0.1 K/mm3 (0-0.2); Basophils % 0.8 % (0.1-2.0); Eosinophils # 0.1 K/mm3 (0.0-0.4); Eosinophils % 0.8 % (0.1-12.0); Hematocrit 39.6 % (37.0-47.0); Hemoglobin 13.6 g/dL (12.2-16.2); Lymphocytes # 1.7 K/mm3 (0.7-4.5); Lymphocytes % 20.4 % (10-50); Mean Corpuscular HGB Conc 34.4 g/dL (31.8-35.4); Mean Corpuscular Hemoglobin 30.1 pg (27.0-31.2); Mean Corpuscular Volume 87.6 fl (81-99); Monocytes # 0.6 K/mm3 (0.1-1.0); Neutrophils # 5.9 K/mm3 (1.8-7.8); Platelet Count 185 K/mm3 (142-424); Red Blood Count 4.52 M/mm3 (4.20-5.40); Red Cell Distribution Width 13.8 % (11.5-17.5); White Blood Count 8.3 K/mm3 (4.8-10.8)
[2024-04-28] MEDS: ACETAMINOPHEN 500MG TAB 500 MG PO (23:57)
[2024-04-28] MEDS: KETOROLAC 30MG/ML VIAL 15 MG IV (23:57)
[2024-04-28] MEDS: MAGNESIUM SULFATE IN WATER 2 GM/50 ML PIGGYBACK IV (23:57)
[2024-04-28] MEDS: PROCHLORPERAZINE 10MG/2ML VIAL 5 MG IV (23:58)
[2024-04-29] VITALS (12 sets, daily range): BP systolic 117–212; BP diastolic 53–87; PULSE 71–104; RESP 18; TEMP 36.6; O2SAT 93–98
[2024-04-29 00:06] LABS: Albumin Level 4.9 g/dl (3.5-5.0); Chloride 98 mmol/L (98-107); Sodium 135 mmol/L (136-145)
[2024-04-29 00:07] LABS: Potassium 3.9 mmoL/L (3.5-5.1)
--- NOTE | 2024-04-29 00:07 | ECG_ITS ---
APPROVED REPORT Exam: Resting ECG HR:94 bpm ECG Measurements Heart Rate 94 AXES NH 170 P 95 QRSd 90 QRS 79 QT 331 T 74 QTc 383 Conclusion SINUS RHYTHM UNCONFIRMED REPORT Electronically signed by : NILDA BROOKS, 04/30/2024 04:02:32
[2024-04-29 00:09] LABS: Alanine Aminotransferase 23 U/L (12-78); Anion Gap 11.9 mEq/L (5-15); Aspartate Amino Transferase 33 U/L (14-36); Blood Urea Nitrogen 14 mg/dl (7-17); Carbon Dioxide 29 mmol/L (22.0-30.0); Creatinine Clearance Estimated 40 mL/min (50-200); Estimated Glomerular Filt Rate 61 ml/min (>60); GFR (African American) 74 ML/MIN (>60)
[2024-04-29 00:10] LABS: Albumin/Globulin Ratio 1.8 (1.1-1.8); Alkaline Phosphatase 82 U/L (38-126); Bilirubin,Total 0.6 mg/dl (0.2-1.3); Calcium 9.8 mg/dl (8.4-10.2); Globulin 2.8 g/dL (1.3-3.2); Glucose 113 mg/dl (74-100); Total Protein,Serum 7.7 g/dl (6.3-8.2)
[2024-04-29 00:19] LABS: NT Pro Brain Natriuretic Pep. 428 pg/mL (0-125)
[2024-04-29 00:22] LABS: Troponin I < 0.01 ng/ml (0.00-0.034)
[2024-04-29] MEDS: diazePAM 10MG/2ML SYRINGE 2.5 MG IV (01:24)
[2024-04-29] MEDS: LABETALOL 20MG/4ML SYRINGE 10 MG IV (01:24)
[2024-04-29 01:55] LABS: HIV (1&2) Antibody Rapid NONREACTIVE (NONREACTIVE)
[2024-04-30 08:34] LABS: HCV Ab Non Reactive (Non Reactive)
== END 2024-04-29 02:43 | disposition home or self-care (01) ==
PROVIDERS: Emergency Provider Emergency Medicine; PCP Internal Medicine
DX: I10 Essential (primary) hypertension (principal)
CPT/HCPCS: 70450; 71045; 80053; 83880; 84484; 85025; 86803; 87389; 93005; J0780; J1885; J1920; J3360; J3475

== ENCOUNTER 2024-04-30 08:48 | Inpatient (IN) | payer MEDICARE, SELFPAY ==
--- NOTE | 2024-04-29 09:11 | ECG_ITS ---
APPROVED REPORT Exam: Resting ECG HR:110 bpm ECG Measurements Heart Rate 110 AXES [place] 163 P 80 QRSd 80 QRS 69 QT 298 T 69 QTc [address] depressions without reciprocal elevations Electronically signed by : SOLO SHORT, 04/30/2024 19:42:41
[2024-04-30] VITALS (24 sets, daily range): BP systolic 112–218; BP diastolic 51–102; PULSE 82–126; RESP 12–21; TEMP 37–37.2; O2SAT 91–97; BMI 21.0; BMI 19.8
--- NOTE | 2024-04-30 08:54 | PC.NURSE ---
DR ADEN AT BEDSIDE
--- NOTE | 2024-04-30 09:05 | ED_ITS ---
Discharge Plan Disposition Patient Disposition: Admitted Chief Complaint: Weakness Prescriptions Prescriptions: No Action multivitamin [Daily Multi-Vitamin] Tablet 1 tab PO DAILY melatonin 3 mg capsule 3 mg PO HS PRN (Reason: Sleep) buspirone 10 mg tablet 5 mg PO BID Qty: 180 1RF losartan 25 mg tablet 25 mg PO DAILY Qty: 90 1RF pantoprazole 40 mg tablet,delayed release (DR/EC) 40 mg PO DAILY Qty: 90 1RF aspirin 81 mg tablet,chewable 81 mg PO DAILY Qty: 90 1RF estradiol 0.01 % (0.1 mg/gram) cream See Rx Instructions vaginal .COMPLEX Qty: 42.5 2RF Rx Instructions: Using finger technique daily for two weeks and then twice weekly vaginally; Gemtesa 75 mg tablet 75 mg PO DAILY 30 Days Qty: 30 2RF oxybutynin chloride 10 mg tablet extended release 24hr 10 mg PO DAILY Qty: 90 1RF cyanocobalamin (vitamin B-12) 1,000 mcg/mL solution 1,000 mcg IM QMONTH vitamin E mixed 100 unit tablet 134 mg PO DAILY gabapentin 100 mg capsule 200 mg PO HS MDD 200 mg po qhs Qty: 60 5RF tizanidine 2 mg capsule 2 mg PO Q8H MDD 6 mg Qty: 90 5RF bumetanide 1 mg tablet 1 mg PO BID Qty: 180 2RF escitalopram oxalate 10 mg tablet 10 mg PO AM Qty: 30 2RF Referrals Follow up/Referrals: Farooq Lee MD [Primary Care Provider] - See instructions Clinical Impressions Clinical Impression: Hypertensive emergency, Declining functional status Print Language Print Language: Tamazight Discharge ED Provider: Dave Hercules General Adult HPI General Chief complaint: Weakness Stated complaint: leg twitch/ache,trouble walking/High BP Time Seen by Provider: 04/30/24 09:01 History of Present Illness HPI narrative: Patient is a 74-year-old female with past medical history of overactive bladder on oxybutynin, hypertension, hyperlipidemia, chronic tingling of her feet on gabapentin who presents emergency department for evaluation of multiple complaints. Patient was started on a new bladder medication last Wednesday called Brandi. She has chronic bilateral lower extremity discomfort and pain for which she takes gabapentin however it is slightly worse than normal. She lives at home however previously suffered injury sustained from a fall and had a prolonged approximately 100-day nursing facility stay for which she was discharged. She normally completes her activities of daily living with a walker. Denies new trauma. She was seen recently in our emergency department for multiple complaints and ultimately deemed appropriate for outpatient management with hypertensive urgency. She was to follow-up for outpatient duplex ultrasound to rule out DVT. No chest pain, no abdominal pain, no other acute complaints at this time. Per family she has seen someone in her bathroom that was not there over the last 24 hours. Related Data Home Medications ?Medication ?Instructions ?Recorded ?Confirmed multivitamin (Daily Multi-Vitamin 1 tab PO DAILY 03/03/23 04/25/24 tablet) melatonin 3 mg capsule 3 mg PO HS PRN Sleep 12/28/23 04/25/24 cyanocobalamin (vitamin B-12) 1,000 mcg IM QMONTH 03/15/24 04/25/24 1,000 mcg/mL injection solution vitamin E mixed 100 unit tablet 134 mg PO DAILY 03/15/24 04/25/24 Previous Rx's ?Medication ?Instructions ?Recorded aspirin 81 mg chewable tablet 81 mg PO DAILY #90 tabs 02/03/24 buspirone 10 mg tablet 5 mg (1/2 x 10 mg) PO BID Anxiety 02/03/24 #180 tabs losartan 25 mg tablet 25 mg PO DAILY #90 tabs 02/03/24 pantoprazole 40 mg tablet,delayed 40 mg PO DAILY #90 tabs 02/03/24 release bumetanide 1 mg tablet 1 mg PO BID #180 tabs 03/10/24 escitalopram oxalate 10 mg tablet 10 mg PO AM Depression #30 tabs 03/15/24 gabapentin 100 mg capsule 200 mg (2 x 100 mg) PO HS 03/15/24 Neuropathic pain #60 caps tizanidine 2 mg capsule 2 mg PO Q8H spasticity #90 caps 03/15/24 estradiol 0.01% (0.1 mg/gram) See Rx Instructions vaginal 04/24/24 vaginal cream .COMPLEX #42.5 grams oxybutynin chloride 10 mg 10 mg PO DAILY #90 tabs 04/24/24 tablet,extended release 24 hr vibegron 75 mg tablet (Gemtesa) 75 mg PO DAILY 30 days #30 tabs 04/24/24 Allergies Allergy/AdvReac Type Severity Reaction Status Date / Time No Known Allergies Allergy Verified 04/25/24 14:25 [facility] Disclaimer: The information contained in this section may have been updated after the patient was seen, as this information can be updated by other users. Medical History Myelopathy Dyspnea on exertion Other specified diseases of pericardium Localized swelling, mass and lump, trunk Anxiety disorder Pericardial effusion Hypertension Hyperlipidemia Edema Anxiety disorder Hypertension Persistent, active follow-up with [facility] cardiology appointment 03/31/2023 Surgical History History of tonsillectomy History of tubal ligation Hx of cholecystectomy Family History Mother Pancreatic cancer Brother Pancreatic cancer Sister Pancreatic cancer Social History Smoking Status: Never smoker alcohol intake: never current occupational status: retired and other Travel in the last 8 weeks: None household members: other housing: other caffeine: No Other Medical History Have you received the Flu Vaccine for this season: No Have you received the Pneumonia Vaccine: No ROS Obtained: Yes Systems reviewed as appropriate & no additional complaints except as documented Physical Exam General General appearance: alert and in no apparent distress Head Head exam: atraumatic and normocephalic Eye Eye exam: Present PERRL and EOMI ENT ENT exam: Present mucous membranes moist Neck Neck exam: Present normal inspection Chest Chest inspection: Present normal inspection and symmetric chest wall rise Respiratory Respiratory exam: Present normal lung sounds bilaterally; Absent respiratory distress Cardiovascular Cardiovascular exam: Present regular rate and normal rhythm Abdominal Exam Abdominal exam: Present soft; Absent tenderness Extremities Exam Extremities exam: Present edema (Pitting edema bilateral lower extremities distal to the knee. Flash capillary refill all digits bilateral lower extremities. Symmetrically decreased bilateral dorsal pedal pulses through the edema.) Neurological Exam Neurological exam: Present alert, oriented X3 and CN II-XII intact; Absent motor sensory deficit Psychiatric Psychiatric exam: Present normal affect Skin Skin exam: Present warm and dry Medical Decision Making Medical Records Screening: Per USPSTF and CDC recommendations, given the prevalence of disease in our region, it is our hospital?s policy to screen for HIV and viral Hepatitis for all patients aged 18 and over and those with ongoing risk factors. Med Inquiry Pt receiving controlled substance: No Vital Signs: 04/30/24 08:50 04/30/24 09:17 04/30/24 09:30 Temperature 99.0 F Temperature Source Oral Pulse Rate 110 H 104 H Pulse Rate [Left Radial] 104 H Respiratory Rate 16 18 18 Blood Pressure 218/102 H 196/97 H Blood Pressure [Right Arm] 210/82 H Blood Pressure Mean 127 121 Blood Pressure Mean [Right Arm] 124 Blood Pressure Source [Right Arm] Manual Cuff/ Auscultation 02 Sat by Pulse Oximetry 96 97 96 Oxygen Delivery Method Room Air Room Air Room Air 04/30/24 09:45 04/30/24 10:00 04/30/24 10:30 Temperature Temperature Source Pulse Rate 101 H 92 H 117 H Pulse Rate [Left Radial] Respiratory Rate 18 18 16 Blood Pressure 189/93 H Blood Pressure [Right Arm] Blood Pressure Mean 125 Blood Pressure Mean [Right Arm] Blood Pressure Source [Right Arm] 02 Sat by Pulse Oximetry 95 96 91 L Oxygen Delivery Method Room Air Room Air Room Air 04/30/24 10:47 04/30/24 10:50 04/30/24 11:00 Temperature Temperature Source Pulse Rate 126 H 125 H 103 H Pulse Rate [Left Radial] Respiratory Rate 21 18 17 Blood Pressure 186/84 H 171/80 H 128/58 L Blood Pressure [Right Arm] Blood Pressure Mean 116 110 Blood Pressure Mean [Right Arm] Blood Pressure Source [Right Arm] 02 Sat by Pulse Oximetry 95 93 L 93 L Oxygen Delivery Method Room Air Room Air Room Air 04/30/24 11:10 Temperature Temperature Source Pulse Rate 96 H Pulse Rate [Left Radial] Respiratory Rate 16 Blood Pressure 116/55 L Blood Pressure [Right Arm] Blood Pressure Mean Blood Pressure Mean [Right Arm] Blood Pressure Source [Right Arm] 02 Sat by Pulse Oximetry 94 L Oxygen Delivery Method Room Air Lab Data Lab Results 04/30/24 09:17: WBC 8.9, RBC 4.38, Hgb 13.4, Hct 37.9, MCV 86.5, MCH 30.6, MCHC 35.4, RDW 13.8, Plt Count 190, MPV 8.0, Neut % (Auto) 79.9, Lymph % (Auto) 13.9, Harmon % (Auto) 5.1, Eos % (Auto) 0.5, Baso % (Auto) 0.6, Neut # (Auto) 7.1, Lymph # (Auto) 1.2, Harmon # (Auto) 0.5, Eos # (Auto) 0.0, Baso # (Auto) 0.1, Sodium 133 L, Potassium 4.1, Chloride 96 L, Carbon Dioxide 30, Anion Gap 11.1, BUN 18 H D, Creatinine 1.00, Estimated Creat Clear 41, Estimated GFR 54 L, Est GFR ( Amer) 66, Glucose 150 H, Calcium 9.6, Magnesium 1.9, Total Bilirubin 0.8, AST 36, ALT 26, Alkaline Phosphatase 52, Total Creatine Kinase 263 H, Total Protein 7.3, Albumin 4.8, Globulin 2.5, Albumin/Globulin Ratio 1.9 H, TSH 0.75, T hyroxine (T4) 11.1 H, Urine Color Yellow, Urine Appearance Slightly cloudy, Urine pH 6.0, Ur Specific Nickerson 1.025, Urine Protein 1+ A, Urine Glucose (UA) Negative, Urine Ketones Trace, Urine Blood 1+ A, Urine Nitrate Negative, Urine Bilirubin Negative, Urine Urobilinogen 0.2, Ur Leukocyte Esterase Negative, Urine RBC 5-10, Urine WBC 3-5, Ur Squamous Epith Cells Occasional, Amorphous Sediment 2+, Urine Bacteria 1+, Urine Mucus Trace 04/30/24 09:20: SARS-CoV-2 (PCR) Not detected, Influenza A Untype (PCR) Not detected, Influenza Type B (PCR) Not detected 04/30/24 09:17 04/30/24 09:17 Orders (Tests/Meds): ED MEDICATIONS Generic Name Dose Route Start Last Admin Trade Name Freq PRN Reason Stop Dose Admin Nicardipine HCl 25 mg/ Sodium 250 mls @ 50 mls/hr 04/30/24 09:54 04/30/24 11:33 Chloride IV 05/30/24 09:53 0 mg/hr .Q5H BONNIE 0 mls/hr Infusion Protocol 5 MG/HR Discontinued Medications Generic Name Dose Route Start Last Admin Trade Name Freq PRN Reason Stop Dose Admin Iopamidol 100 ml 04/30/24 10:31 04/30/24 10:31 Iopamidol-370 (76%);100ml Bottle IV 04/30/24 10:32 100 ml ONCE ONE Administration Sodium Chloride 10 ml 04/30/24 10:31 04/30/24 10:31 Sodium Chloride 0.9% 10ml Syr (Rad Only) IV 04/30/24 10:32 10 ml ONCE ONE Administration Sodium Chloride 50 ml 04/30/24 10:31 04/30/24 10:31 0.9 % Sodium Chloride 50 Ml Vial IV 04/30/24 10:32 50 ml ONCE ONE Administration ORDERS Category Date Time Status CT angio head Stat Cat Scan 04/30/24 09:[address] angio neck Stat Cat Scan 04/30/24 09:[address] head/brain wo con Stat Cat Scan 04/30/24 09:53 Completed CBC w/Auto Diff [Complete Blood Count Auto Diff] Stat Lab 04/30/24 09:17 Completed CK [Creatine Kinase] Stat Lab 04/30/24 09:17 Completed CMP [Comprehensive Metabolic Panel] Stat Lab 04/30/24 09:17 Completed MG [Magnesium] Stat Lab 04/30/24 09:17 Completed Rapid PCR Covid and Flu A/B Stat Lab 04/30/24 09:20 Completed T4 (Thyroxine) Stat Lab 04/30/24 09:17 Completed TSH [Thyroid Stimulating Hormone] Stat Lab 04/30/24 09:17 Completed UA [Urinalysis and Microscopic] Stat Lab 04/30/24 09:17 Completed Blood Culture Stat Micro 04/30/24 09:20 Received ECG Data Tracing #1: Independently interpreted by me rate is 110, rhythm is regular, axis is normal, no ST elevation in anatomical contiguous leads, QTc 363 Medical Decision Narrative: In summary patient is a 74-year-old female past medical history described above who presents emergency department for evaluation of high blood pressure and acute on chronic bilateral lower extremity discomfort. Patient is hemodynamically stable nontoxic-appearing upon arrival, afebrile. Differential diagnosis includes chronic neuropathy, myositis, critical electrolyte abnormality, urinary tract infection, among others. Workup we conducted with hematologic labs, EKG, urinalysis. Noncontrasted CT scan of the head was considered however patient has a nonfocal neurologic exam and 1 was conducted in the last 48 hours with no acute intracranial abnormality will be deferred. I have no concern for emergent arterial pathology of the bilateral lower extremities given that she has brisk capillary refill in all digits. Initial workup reviewed by me, no significant leukocytosis, no MIGUEL or critical electrolyte abnormality. Urinalysis interpreted by me and not strongly consistent with infection, COVID-negative. CTA head and neck no obvious abnormality, 3 mm laterally projected from the right carotid rotted siphon suspicious for underlying aneurysm. Noncontrasted CT scan no acute intracranial abnormality. Neck CT has irregularities along the right internal carotid artery likely spurious however nonflow limiting dissection is difficult to exclude however clinically patient has no trauma and I do not suspect spontaneous vertebral artery dissection and patient has a nonfocal neurologic exam grossly. Case discussed with hospital medicine regarding management patient be admitted to their service for continued evaluation at this time Critical Care Critical Care Time Critical Care Time: Yes Attestation: On 04/30/24, the high probability of a clinically significant, sudden or life threatening deterioration of the following system(s) required my full and direct attention, intervention and personal management. The time I documented below is in addition to time spent performing reported procedures but includes the following listed in this critical care notation. Total Time Total Critical Care Time: 45
--- NOTE | 2024-04-30 09:07 | PC.NURSE ---
DR ADEN UPDATING FAMILY AT THIS TIME
--- NOTE | 2024-04-30 09:28 | PC.NURSE ---
Manual Blood Pressure at this time is 210/82.
[2024-04-30 09:39] LABS: Coronavirus 19, PCR Not Detected (NotDetected); Influenza A, PCR Not Detected (NotDetected); Influenza B, PCR Not Detected (NotDetected)
[2024-04-30 09:39] LABS: Microscopic, Urine URINE MICROSCOPIC (MICROSCOPIC)
[2024-04-30 09:46] LABS: Albumin Level 4.8 g/dl (3.5-5.0); Bilirubin,Urine Negative (Negative); Blood, Urine 1+ (Negative); Chloride 96 mmol/L (98-107); Color,Urine YELLOW (Yellow); Glucose,Urine (UA) Negative (Negative); Ketones,Urine TRACE (Negative); Leukocyte Esterase,Urine Negative (Negative); Nitrate,Urine Negative (Negative); Potassium 4.1 mmoL/L (3.5-5.1); Protein,Urine 1+ (Negative); Sodium 133 mmol/L (136-145); Specific Gravity, Urine 1.025 (1.005-1.030); Urobilinogen,Urine 0.2 EU/dl (0.2)
[2024-04-30 09:48] LABS: Blood Urea Nitrogen 18 mg/dl (7-17); Creatinine Clearance Estimated 41 mL/min (50-200); Estimated Glomerular Filt Rate 54 ml/min (>60); GFR (African American) 66 ML/MIN (>60)
[2024-04-30 09:49] LABS: Alanine Aminotransferase 26 U/L (12-78); Albumin/Globulin Ratio 1.9 (1.1-1.8); Alkaline Phosphatase 52 U/L (38-126); Anion Gap 11.1 mEq/L (5-15); Aspartate Amino Transferase 36 U/L (14-36); Bilirubin,Total 0.8 mg/dl (0.2-1.3); Calcium 9.6 mg/dl (8.4-10.2); Carbon Dioxide 30 mmol/L (22.0-30.0); Creatine Kinase 263 U/L (30-135); Globulin 2.5 g/dL (1.3-3.2); Glucose 150 mg/dl (74-100); Magnesium 1.9 mg/dl (1.6-2.3); Total Protein,Serum 7.3 g/dl (6.3-8.2)
[2024-04-30 09:52] LABS: Basophils # 0.1 K/mm3 (0-0.2); Basophils % 0.6 % (0.1-2.0); Eosinophils % 0.5 % (0.1-12.0); Hematocrit 37.9 % (37.0-47.0); Hemoglobin 13.4 g/dL (12.2-16.2); Lymphocytes # 1.2 K/mm3 (0.7-4.5); Lymphocytes % 13.9 % (10-50); Mean Corpuscular HGB Conc 35.4 g/dL (31.8-35.4); Mean Corpuscular Hemoglobin 30.6 pg (27.0-31.2); Mean Corpuscular Volume 86.5 fl (81-99); Monocytes # 0.5 K/mm3 (0.1-1.0); Monocytes % 5.1 % (1.7-9.3); Neutrophils # 7.1 K/mm3 (1.8-7.8); Neutrophils % 79.9 % (37.0-80.0); Platelet Count 190 K/mm3 (142-424); Red Blood Count 4.38 M/mm3 (4.20-5.40); Red Cell Distribution Width 13.8 % (11.5-17.5); White Blood Count 8.9 K/mm3 (4.8-10.8)
--- NOTE | 2024-04-30 09:53 | CT_ITS ---
PROCEDURE INFORMATION: Exam: CTA Neck With Contrast Exam date and time: 04/30/2024 10:13 AM Age: 74 years old Clinical indication: Other: HTN; Additional info: HTN encephalopathy TECHNIQUE: Imaging protocol: Computed tomographic angiography of the neck with contrast. Exam focused on the cervical segments of the vasculature. 3D rendering (Not supervised by radiologist): MIP and/or 3D reconstructed images were created by the technologist. Radiation optimization: All CT scans at this facility use at least one of these dose optimization techniques: automated exposure control; mA and/or kV adjustment per patient size (includes targeted exams where dose is matched to clinical indication); or iterative reconstruction. Contrast material: ISOVUE; Contrast volume: 100 ml; Contrast route: INTRAVENOUS (IV); COMPARISON: CT HEAD/BRAIN WO CON 04/30/2024 10:09 AM FINDINGS: Right common carotid artery: No stenosis. No dissection or occlusion. Right internal carotid artery: Multifocal irregularities along the mid right internal carotid artery are likely spurious from streaky artifact. Non flow-limiting dissection is difficult to exclude. Right external carotid artery: No occlusion or stenosis of the origin. Left common carotid artery: No stenosis. No dissection or occlusion. Left internal carotid artery: No stenosis of the extracranial segment. No dissection or occlusion. Left external carotid artery: No occlusion or stenosis of the origin. Right vertebral artery: No stenosis. No dissection or occlusion. Left vertebral artery: No stenosis. No dissection or occlusion. Teeth: Photon starvation and streaky artifact from dental fillings slightly obscures the assessment of the surrounding structures. Soft tissues: Normal. No significant soft tissue swelling. Bones/joints: No acute fracture. IMPRESSION: Irregularities along the mid right internal carotid artery are likely spurious from dental filling streaky artifact. Non flow-limiting dissection is difficult to exclude. (series 602, image 51). REFERENCES: NASCET CRITERIA. The degree of stenosis in the cervical segment of the internal carotid artery is based on NASCET criteria. Normal is no stenosis. Mild is less than 50% stenosis. Moderate is 50-69% stenosis. Severe is 70% to 99% stenosis. Total occlusion is no detectable patent lumen.
--- NOTE | 2024-04-30 09:53 | CT_ITS ---
PROCEDURE INFORMATION: Exam: CT Head Without Contrast Exam date and time: 04/30/2024 10:09 AM Age: 74 years old Clinical indication: Other: HTN; Additional info: HTN, encephalopathy TECHNIQUE: Imaging protocol: Computed tomography of the head without contrast. Radiation optimization: All CT scans at this facility use at least one of these dose optimization techniques: automated exposure control; mA and/or kV adjustment per patient size (includes targeted exams where dose is matched to clinical indication); or iterative reconstruction. COMPARISON: CT HEAD/BRAIN WO CON 04/28/2024 11:50 PM FINDINGS: Brain: There is no evidence of acute intracranial hemorrhage, extra-axial collection or locoregional mass effect. There are scattered hypodensities in the periventricular and subcortical white matter. The appearance is nonspecific, but most likely represents chronic small vessel disease in a person of this age Cerebral ventricles: The ventricles, sulci and cisterns are normal in size and configuration for patient's age. No hydrocephalus or midline structure shift Pituitary gland and sella: Sellar/parasellar structures, craniocervical junction and orbits are unremarkable Paranasal sinuses: Scattered mucosal thickening throughout the paranasal sinuses. Mastoid air cells: Visualized mastoid air cells are well aerated. Bones: No calvarial fracture Soft tissues: Unremarkable. IMPRESSION: No acute intracranial abnormality. If focal neurological symptoms persist brain MRI can be obtained for better evaluation
--- NOTE | 2024-04-30 09:53 | CT_ITS ---
PROCEDURE INFORMATION: Exam: CTA Head With Contrast, Arteriography Exam date and time: 04/30/2024 10:13 AM Age: 74 years old Clinical indication: Other: HTN; Additional info: HTN encephalopathy TECHNIQUE: Imaging protocol: Computed tomographic angiography of the head with contrast. Exam focused on the arteries. 3D rendering (Not supervised by radiologist): MIP and/or 3D reconstructed images were created by the technologist. Radiation optimization: All CT scans at this facility use at least one of these dose optimization techniques: automated exposure control; mA and/or kV adjustment per patient size (includes targeted exams where dose is matched to clinical indication); or iterative reconstruction. Contrast material: ISO 370; Contrast volume: 80 ml; Contrast route: INTRAVENOUS (IV); COMPARISON: CT HEAD/BRAIN WO CON 04/30/2024 10:09 AM FINDINGS: ANTERIOR CIRCULATION: Right internal carotid artery: There is a 3 mm laterally projected convexity emanating from the right carotid siphon suspicious for underlying aneurysm (series 2, image 347). Right middle cerebral artery: No occlusion or significant stenosis. No aneurysm. Right anterior cerebral artery: No occlusion or significant stenosis. No aneurysm. Left internal carotid artery: Intracranial segment is patent with no significant stenosis. No aneurysm. Left middle cerebral artery: No occlusion or significant stenosis. No aneurysm. Left anterior cerebral artery: No occlusion or significant stenosis. No aneurysm. POSTERIOR CIRCULATION: Right vertebral artery: No occlusion or significant stenosis. No aneurysm. Left vertebral artery: No occlusion or significant stenosis. No aneurysm. Basilar artery: No occlusion or significant stenosis. No aneurysm. Right posterior cerebral artery: No occlusion or significant stenosis. No aneurysm. Left posterior cerebral artery: No occlusion or significant stenosis. No aneurysm. Brain: No definite mass, mass effect, or midline shift. Cerebral ventricles: No ventriculomegaly. Bones/joints: Unremarkable. No acute fracture. Soft tissues: Unremarkable. IMPRESSION: 1. No large vessel occlusion. 2. There is a 3 mm laterally projected convexity emanating from the right carotid siphon suspicious for underlying aneurysm (series 2, image 347).
[2024-04-30 10:04] LABS: Appearance,Urine Slightly Cloudy (Clear)
[2024-04-30 10:06] LABS: T4 (Thyroxine) 11.1 ug/dl (5.53-11.0)
[2024-04-30 10:13] LABS: Amorphous Sediment,Urine 2+ /lpf; Bacteria,Urine 1+ /lpf; Mucus,Urine Trace /lpf
[2024-04-30 10:16] LABS: Squamous Epithelial Cell,Urine Occasional #/hpf (0-5)
[2024-04-30 10:20] LABS: Thyroid Stimulating Hormone 0.75 uIU/mL (0.465-4.68)
[2024-04-30] MEDS: NICARDIPINE HCL 25 MG in 0.9 % SODIUM CHLORIDE 240 ML 50 MG IV (10:30)
[2024-04-30] MEDS: IOPAMIDOL-370 (76%);100ML BOTTLE 100 ML IV (10:31)
[2024-04-30] MEDS: SODIUM CHLORIDE 0.9% 10ML SYR (RAD ONLY) 10 ML IV (10:31)
[2024-04-30] MEDS: 0.9 % SODIUM CHLORIDE 50 ML VIAL IV (10:31)
--- NOTE | 2024-04-30 12:21 | PC.NURSE ---
WEB OPERATIONS MANAGER NOTIFIED OF ADMISSION
[2024-04-30] MEDS: IRBESARTAN 75MG TABLET 75 MG PO (13:57)
[2024-04-30] MEDS: ACETAMINOPHEN 325MG TAB 650 MG PO (14:04)
[2024-04-30] MEDS: GABAPENTIN 300MG CAPSULE 300 MG PO (15:26)
--- NOTE | 2024-04-30 18:01 | EXP.HP ---
History of Present Illness *Admission Date: 04/30/24 *Reason for visit:: Worsening leg pain, high blood pressure *History of present illness: Birgit Estrada is a 74-year-old female with a medical history significant for hypertension, anxiety/depression, GERD who presents with worsening lower extremity pain. Patient and son state that she has had a longstanding history of lower extremity pain, specifically in the calfs and feet that have gotten worse over the past few days. Patient was unable to sleep last night due to pain. Son states she has been able to ambulate just a few days ago, and living independently. Of note, patient had a fall earlier this year with significant debility of right hip without fracture, discharged to nursing facility for approximately 100 days. Son states she has been worked up for her bilateral leg pain by neurology who started her on gabapentin. She states that it had been helping until the last few days and which has gotten worse. On my interview, patient did not have significant pain and was pleasant and conversational eating her lunch. Of note, patient's blood pressure was 210/82 in the ED with signs of endorgan damage with proteinuria. Patient also states she has been seeing floaters recently. Case discussed with ED provider and decision was made to admit patient for hypertensive emergency. [facility] Disclaimer: The information contained in this section may have been updated after the patient was seen, as this information can be updated by other users. Medical History Myelopathy Dyspnea on exertion Other specified diseases of pericardium Localized swelling, mass and lump, trunk Anxiety disorder Pericardial effusion Hypertension Hyperlipidemia Edema Anxiety disorder Hypertension Persistent, active follow-up with [facility] cardiology appointment 03/31/2023 Surgical History History of tonsillectomy History of tubal ligation Hx of cholecystectomy Family History Mother Pancreatic cancer Brother Pancreatic cancer Sister Pancreatic cancer Social History (Updated 04/30/24 @ 14:30 by Danielle Mullen RN) Smoking Status: Never smoker alcohol intake: never current occupational status: retired and other Travel in the last 8 weeks: None household members: other housing: other caffeine: No Other Medical History Have you received the Flu Vaccine for this season: No Have you received the Pneumonia Vaccine: Yes Meds Home Medications and Allergies Home Medications ?Medication ?Instructions ?Recorded ?Confirmed ?Type melatonin 3 mg capsule 3 mg PO HS Sleep 12/28/23 04/30/24 History aspirin 81 mg chewable tablet 81 mg PO DAILY #90 tabs 02/03/24 04/30/24 Rx buspirone 10 mg tablet 5 mg (1/2 x 10 mg) PO BID Anxiety 02/03/24 04/30/24 Rx #180 tabs losartan 25 mg tablet 25 mg PO DAILY #90 tabs 02/03/24 04/30/24 Rx pantoprazole 40 mg tablet,delayed 40 mg PO DAILY #90 tabs 02/03/24 04/30/24 Rx release escitalopram oxalate 10 mg tablet 10 mg PO AM Depression #30 tabs 03/15/24 04/30/24 Rx vitamin E mixed 100 unit tablet 134 mg PO DAILY 03/15/24 04/30/24 History oxybutynin chloride 10 mg 10 mg PO DAILY #90 tabs 04/24/24 04/30/24 Rx tablet,extended release 24 hr vibegron 75 mg tablet (Gemtesa) 75 mg PO DAILY 30 days #30 tabs 04/24/24 04/30/24 Rx bumetanide 1 mg tablet 1 mg PO DAILY 04/30/24 04/30/24 History gabapentin 100 mg capsule 200 mg PO HS 04/30/24 04/30/24 History vit no.133-ferrous 1 tab PO DAILY 04/30/24 04/30/24 History fumarate 28 mg-folic acid 800 mcg tablet () New Prescriptions to Start Prescriptions: Allergies Allergy/AdvReac Type Severity Reaction Status Date / Time No Known Allergies Allergy Verified 04/25/24 14:25 Exam Data for Last 24 hours Vital signs and Labs for Last 24 Hours: Temp Pulse Resp BP Pulse Ox O2 Del Method 98.6 F 109 H 16 170/83 H 95 Room Air 04/30/24 16:00 04/30/24 15:00 04/30/24 15:00 04/30/24 15:00 04/30/24 15:00 04/30/24 15:12 Laboratory Results - last 24 hr 04/30/24 09:17: WBC 8.9, RBC 4.38, Hgb 13.4, Hct 37.9, MCV 86.5, MCH 30.6, MCHC 35.4, RDW 13.8, Plt Count 190, MPV 8.0, Neut % (Auto) 79.9, Lymph % (Auto) 13.9, [place] % (Auto) 5.1, Eos % (Auto) 0.5, Baso % (Auto) 0.6, Neut # (Auto) 7.1, Lymph # (Auto) 1.2, [place] # (Auto) 0.5, Eos # (Auto) 0.0, Baso # (Auto) 0.1, Sodium 133 L, Potassium 4.1, Chloride 96 L, Carbon Dioxide 30, Anion Gap 11.1, BUN 18 H D, Creatinine 1.00, Estimated Creat Clear 41, Estimated GFR 54 L, Est GFR ( Amer) 66, Glucose 150 H, Calcium 9.6, Magnesium 1.9, Total Bilirubin 0.8, AST 36, ALT 26, Alkaline Phosphatase 52, Total Creatine Kinase 263 H, Total Protein 7.3, Albumin 4.8, Globulin 2.5, Albumin/Globulin Ratio 1.9 H, TSH 0.75, Thyroxine (T4) 11.1 H, Urine Color Yellow, Urine Appearance Slightly cloudy, Urine pH 6.0, Ur Specific [place] 1.025, Urine Protein 1+ A, Urine Glucose (UA) Negative, Urine Ketones Trace, Urine Blood 1+ A, Urine Nitrate Negative, Urine Bilirubin Negative, Urine Urobilinogen 0.2, Ur Leukocyte Esterase Negative, Urine RBC 5-10, Urine WBC 3-5, Ur Squamous Epith Cells Occasional, Amorphous Sediment 2+, Urine Bacteria 1+, Urine Mucus Trace 04/30/24 09:20: SARS-CoV-2 (PCR) Not detected, Influenza A Untype (PCR) Not detected, Influenza Type B (PCR) Not detected I & O for Last 24 hours: Intake & Output 04/27/24 04/28/24 04/29/24 04/30/24 23:59 23:59 23:59 23:59 Intake Total 52.5 / 52.5 Output Total 500 / 500 Balance -447.5 / -447.5 Weight 52.277 kg Constitutional Constitutional: no acute distress *Routine HEENT Exam Head: Present normocephalic Eye: Present EOMI and PERRL ENT: Present mucous membranes moist *Routine Neck Exam Neck: Present supple; Absent lymphadenopathy *Routine Respiratory Exam Respiratory: Present CTA bilaterally *Routine Cardiovascular Exam Cardiovascular: Present RRR *Routine Abdominal Exam Abdominal: Present soft and normoactive bowel sounds; Absent tenderness *Routine Rectal Exam Rectal:: deferred *Routine Genitalia Exam Genitalia:: deferred *Routine Extremities Exam Extremities: Absent cyanosis, clubbing or edema *Routine Skin Exam Skin: Present warm; Absent rash *Routine Neurological Exam Neurological: Present alert and oriented X3 Assessment and Plan *Assessment and plan (1) Hypertensive emergency: Status: Acute Category: Medical Code(s): I16.1 - Hypertensive emergency (2) Declining functional status: Status: Acute Category: Medical Code(s): R53.81 - Other malaise (3) Lower extremity pain: Status: Acute Category: Medical Code(s): M79.606 - Pain in leg, unspecified Plan Birgit Estrada is a 74-year-old female with a medical history significant for hypertension, anxiety/depression, GERD who presents with worsening lower extremity pain. Patient and son state that she has had a longstanding history of lower extremity pain, specifically in the calfs and feet that have gotten worse over the past few days. Patient was unable to sleep last night due to pain. Son states she has been able to ambulate just a few days ago, and living independently. Of note, patient had a fall earlier this year with significant debility of right hip without fracture, discharged to nursing facility for approximately 100 days. Son states she has been worked up for her bilateral leg pain by neurology who started her on gabapentin. She states that it had been helping until the last few days and which has gotten worse. On my interview, patient did not have significant pain and was pleasant and conversational eating her lunch. Of note, patient's blood pressure was 210/82 in the ED with signs of endorgan damage with proteinuria. Patient also states she has been seeing floaters recently. Case discussed with ED provider and decision was made to admit patient for hypertensive emergency. #Hypertensive emergency ? Initial BP 210/82 with proteinuria. Had been feeling weak, dizzy, with floaters over the last few days. ? Head CT did not show acute findings. ? Nicardipine drip was started in the ED with improvement in blood pressures. Currently 151/76. ? Started irbesartan 75 mg daily in the setting of CKD. Patient takes losartan 25mg at home. ? Wean off nicardipine drip, goal BP > 130/90. - It is possible hypertension is secondary to leg pain. #Bilateral lower extremity pain - Has had on and off pain in bilateral calves and feet, worse over the past few days. - Outpatient workup with neurology seemed to have not suggested sciatica, though patient had a fall this year requiring 100 day SNF rehab. - May be secondary to restless legs syndrome. Get obtain iron levels. - Increased gabapentin to 300mg nightly. - Started ropironole 2mg nightly. - Consider lumbar imaging tomorrow if pain not improved. - Ordered venous, aterial duplexes to rule ot DVT and PAD claudication respectively. #Anxety/depression - Home Antoine Tan. #GERD - Home Protonix. FULL CODE Lovenox 40mg
[2024-04-30] MEDS: ROPINIROLE 1MG TABLET 2 MG PO (18:07)
--- NOTE | 2024-04-30 18:19 | PC.NURSE ---
Pt is currently resting in bed. Has c/o discomfort to BLE since arrival to floor. MD Notified. Pt ordered Gabapentin 300 mg PO and Requip 2 mg PO. Pt states pain has improved. Call light within reach. Safety measures in place.
[2024-04-30] MEDS: BUSPIRONE HCL 5 MG TABLET PO (20:49)
[2024-04-30] MEDS: MELATONIN 5MG TABLET 5 MG PO (21:04)
[2024-05-01] VITALS (10 sets, daily range): BP systolic 152–220; BP diastolic 76–102; PULSE 70–100; RESP 14–18; TEMP 36.6–36.9; O2SAT 94–97; BMI 19.9
--- NOTE | 2024-05-01 03:54 | PC.NURSE ---
Reported higher BP's to Virgilio [facility], no new orders noted.
[2024-05-01] MEDS: ONDANSETRON 4MG/2ML VIAL 4 MG IV (04:29)
--- NOTE | 2024-05-01 06:09 | PC.NURSE ---
Patient remains A/O able to voice needs to staff. Rested throughout the night, medicated for nausea x 1 with positive effects. Staff provided assistance, turning and repositioning every 2 hrs and PRN. Reviewed POC and d/c goals, pt v/u and has no new c/o
[2024-05-01] MEDS: ACETAMINOPHEN 325MG TAB 650 MG PO ×3 (06:19→16:07)
[2024-05-01 06:51] LABS: Alanine Aminotransferase 26 U/L (12-78); Albumin Level 3.7 g/dl (3.5-5.0); Albumin/Globulin Ratio 1.9 (1.1-1.8); Alkaline Phosphatase 49 U/L (38-126); Anion Gap 10.8 mEq/L (5-15); Aspartate Amino Transferase 55 U/L (14-36); Bilirubin,Total 0.7 mg/dl (0.2-1.3); Blood Urea Nitrogen 12 mg/dl (7-17); Carbon Dioxide 28 mmol/L (22.0-30.0); Chloride 99 mmol/L (98-107); Creatinine Clearance Estimated 41 mL/min (50-200); Estimated Glomerular Filt Rate 70 ml/min (>60); GFR (African American) 85 ML/MIN (>60); Glucose 95 mg/dl (74-100); Magnesium 1.9 mg/dl (1.6-2.3); Potassium 3.8 mmoL/L (3.5-5.1); Sodium 134 mmol/L (136-145); Total Protein,Serum 5.7 g/dl (6.3-8.2)
[2024-05-01 06:53] LABS: NT Pro Brain Natriuretic Pep. 654 pg/mL (0-125)
[2024-05-01 07:07] LABS: Iron 77 ug/dL (37-170)
[2024-05-01 07:16] LABS: Total Iron Binding Capacity 274 ug/dL (265-497)
[2024-05-01 07:53] LABS: Basophils % 0.5 % (0.1-2.0); Eosinophils % 0.4 % (0.1-12.0); Hematocrit 36.9 % (37.0-47.0); Hemoglobin 12.4 g/dL (12.2-16.2); Lymphocytes # 1.2 K/mm3 (0.7-4.5); Mean Corpuscular HGB Conc 33.7 g/dL (31.8-35.4); Mean Corpuscular Hemoglobin 30.1 pg (27.0-31.2); Mean Corpuscular Volume 89.4 fl (81-99); Mean Platelet Volume 8.2 fl (7.4-10.4); Monocytes # 0.6 K/mm3 (0.1-1.0); Monocytes % 8.8 % (1.7-9.3); Neutrophils # 5.3 K/mm3 (1.8-7.8); Neutrophils % 73.4 % (37.0-80.0); Platelet Count 178 K/mm3 (142-424); Red Blood Count 4.13 M/mm3 (4.20-5.40); Red Cell Distribution Width 13.7 % (11.5-17.5); White Blood Count 7.3 K/mm3 (4.8-10.8)
--- NOTE | 2024-05-01 08:18 | CA_ITS ---
APPROVED REPORT EXAM: Comprehensive 2D, Doppler, and color-flow Echocardiogram Resource Conservationist: Melisa Hanley RT(R) Ht: 5 ft 4 in Wt: 112lbs BSA: 1.53 BP: 170/83 mmHg Indications: hypertensive emergency, edema, lower extremity aggarwal, hyperlipidemia. 2D Dimensions Left Atrium 2.07 cm F: 2.7 - 3.8 EF AP4 39.10 % LVOT 1.96 cm (M/F) 1.5-2.5 GL Strain -13.8 % M-Mode Dimensions RVDd 1.25 cm (0.9-2.6) LVDd 4.17 cm (3.5-5.7) Ao Diam 2.42 cm (2.0-3.7) LVDs 3.16 cm (3.5-5.7) IVSd 0.81 cm (0.6-1.1) PWd 0.78 cm (0.6-1.1) EF (Teich) 48.60% FS 24.20% EDV (Teich) 77.30 mL ESV (Teich) 39.70 mL LV Diastology E Decel Time 186 (160-240 msec) E/A Ratio 0.8 MED E' 5.4 (>= 7 cm/sec) E'/MED E' Ratio 17.43 (<= 14) LAT E' 7.4 (>= 10 cm/sec) E/LAT E' Ratio 12.72 (<= 14) Mitral Valve MV E Max Eber. 94.0 (40-130 cm/s) MV A Velocity 117.0 (40-130 cm/s) E/A Ratio 0.80 MV Decel. Time 186 (160-240 ms) Left Ventricle The left ventricle is normal size. The left ventricular systolic function is normal. The left ventricular ejection fraction is within the normal range. There is increased LV wall thickness. There is normal LV segmental wall motion. Transmitral Doppler flow pattern suggests impaired LV relaxation. LVEF is 60%. Right Ventricle The right ventricle is normal size. The right ventricular systolic function is normal. Atria The left atrium size is normal. The right atrium size is normal. The interatrial septum is not well-visualized. Aortic Valve The aortic valve is mildly thickened. Trace aortic regurgitation. There is no aortic valvular stenosis. Mitral Valve The mitral valve leaflets are mildly thickened. No evidence of mitral valve stenosis. Trace mitral regurgitation. Tricuspid Valve The tricuspid valve leaflets are thin and pliable. Trace tricuspid regurgitation. There is insufficient TR jet to estimate RVSP. Pulmonic Valve The pulmonary valve is normal in structure. Trace pulmonic regurgitation. Great Vessels The aortic root is normal in size. The ascending aorta is not well-visualized. The IVC is not well-visualized. Pericardium There is no pericardial effusion. Other Information Study Quality: Technically Difficult Conclusion Technically difficult study due to poor acoustic windows. Normal biventricular systolic function. No significant valvular stenosis or regurgitation. Electronically signed by : Chrissie Shannon MD 05/01/2024 22:57:19
[2024-05-01] MEDS: BUSPIRONE HCL 5 MG TABLET PO ×2 (08:32→20:40)
[2024-05-01] MEDS: OXYBUTYNIN 5MG TAB 5 MG PO ×2 (08:32→20:40)
[2024-05-01] MEDS: CITALOPRAM 20MG TABLET 20 MG PO (08:32)
[2024-05-01] MEDS: IRBESARTAN 75MG TABLET 75 MG PO ×2 (08:33→14:58)
[2024-05-01] MEDS: PANTOPRAZOLE 40MG TABLET 40 MG PO ×2 (08:33→20:40)
[2024-05-01] MEDS: ENOXAPARIN 40MG/0.4ML SYRINGE 40 MG SUBCUT (08:33)
[2024-05-01] MEDS: ASPIRIN 81MG CHEWABLE TABLET 81 MG PO (08:33)
[2024-05-01] MEDS: hydroCHLOROthiazide 25MG TABLET 25 MG PO (08:43)
--- NOTE | 2024-05-01 09:49 | HMH.PTEV ---
Physical Therapy Evaluation Rehab PT IP Evaluation Start: 05/01/24 08:16 Freq: ONCE Status: Active Protocol: Document 05/01/24 09:24 MARYSAE (Rec: 05/01/24 09:49 PHORPAULA [id number]) Subjective/History History History Pt is 74-year-old female with a medical history significant for hypertension, anxiety/ depression, GERD who presents with worsening lower extremity pain. She reports living home alone but receives assistance from family for household duties. Pt states in September through November she was staying at [facility] for rehab and has been receiving home health for the last month or so. She uses a walker at home and in the community. Pt has a few steps to get into her home. Son at bedside reports up until a few days ago she was able to get around by herself w/ use of her walker and was able to go out shopping last weekend. Additionally, son states on Wednesday Pt had c/o L knee pain that continued to debilitate her abilities. Subjective Subjective Pt presents reclined in bed this morning. Pt is awake, alert, and oriented x3. She consents to therapy services this morning. New diagnosis of cancer in past 12 No months? Rehab PT IP Eval Objective Appearance Patient Behavior Appropriate,Cooperative Patient Orientation Person,Place,Birthday Difficulty following instructions none Speech Pattern Clear,Appropriate,Coherent Ambulation Patient Able to Ambulate No Balance Ability to Arise Unable Sitting Balance Steady, safe Standing Balance Unsteady Dynamic Sitting Balance Ability Fair Dynamic Standing Balance Ability Zero Transfers Bed Transfer Ability Maximum x 2 (75% assist) Sit to Stand Bed Transfer Ability Maximum x 2 (75% assist) Rehab PT IP prob,goals,plan Problems Date of Evaluation: 05/01/24 PT IP Problems Bed Mobility,Transfers,Gait, Balance Rehab Potential Rehab Potential Good Plan PT Intervention Plan Bed Mobility,Transfers,Gait, Balance,Therapeutic Exercise PT Plan Frequency BID Duration LOS Discharge Goals Bed Transfer Ability Moderate x 2 (50% assist) Sit to Stand Chair Transfer Ability Moderate x 2 (50% assist) Ambulation Assistive Device Rolling Walker Ambulation Distance (feet) 10 Discharge Plan PT Discharge Plan Currently, pt is most appropriate for rehab placement once medically stable for d/c. Pt exhibits LE rigidity with decreased strength and mobility. She demonstrates good static sitting balance; however, LOB in sitting occurs when initiating dynamic movements of UE or LE, but pt is able to self correct. Additionally, she is unable to fully weight bear on PARVEZ feet in standing and requires max assistance x2 in once in standing. PT services are indicated to increase bed mobility, transfers, strength, and gait. Eval Complexity Eval Charge Codes 18118 - High Complexity PHYSICIAN CERTIFICATION: I certify the specified therapy services for Birgit Estrada are required, authorized, and reviewed every 30 days.
--- NOTE | 2024-05-01 09:59 | HMH.OTEV ---
OT Inpatient Evaluation Rehab OT IP Evaluation Start: 05/01/24 08:16 Freq: ONCE Status: Active Protocol: Document 05/01/24 09:26 RADHAREBECCA (Rec: 05/01/24 09:59 GO [id number]) Rehab OT IP Assessment Subjective History Birgit Estrada is a 74-year- old female with a medical history significant for hypertension, anxiety/ depression, GERD who presents with worsening lower extremity pain. Patient and son state that she has had a longstanding history of lower extremity pain, specifically in the calfs and feet that have gotten worse over the past few days. Patient was unable to sleep last night due to pain. Son states she has been able to ambulate just a few days ago, and living independently. Of note, patient had a fall earlier this year with significant debility of right hip without fracture, discharged to nursing facility for approximately 100 days. Son states she has been worked up for her bilateral leg pain by neurology who started her on gabapentin. She states that it had been helping until the last few days and which has gotten worse. On my interview , patient did not have significant pain and was pleasant and conversational eating her lunch. Of note, patient's blood pressure was 210/82 in the ED with signs of endorgan damage with proteinuria. Patient also states she has been seeing floaters recently. Case discussed with ED provider and decision was made to admit patient for hypertensive emergency. Patient lives alone in 1 story home with no DOROTHY. Family assist as needed and stops by to check on patient. Patient was able to complete all ADLs and fx'l mobility independently. Subjective I can try to stand. Instructed Patient on proper hand and foot placement to complete bed mobility from supine->sit @ EOB->stand with needing Max A x2 assistance. Patient stood <30 secs with inability to place B feet flat on floor. Patient to complete full standing due to ridged muscle tone in B LE. Assisted patient back to bed in upright position with needs met. Objective Patient Orientation Person,Place,Name,Birthday Right Upper Extremity Gross ROM WFL Left Upper Extremity Gross ROM WFL Bed Mobility bed mobility - supine/sit Assist Level Maximum x 2 (75% assist) Transfer Training Sit/Stand Transfer Assist Level Maximum x 2 (75% assist) Rehab OT IP prob,goals,plan Problems Date of Evaluation: 11/18/24 OT IP Problems Bed Mobility,Transfers,Balance ,Self care,Safety Rehab Potential Rehab Potential Good Equipment Needs Assistive Devices None / NA Plan OT intervention Plan Bed Mobility,Transfers,Balance ,Self care,Safety,Therapeutic Exercise OT Plan Frequency Daily Duration LOS Discharge Goals Bed Mobility Ability Assistance x1 Sit to Stand Chair Transfer Ability Maximum x 1 (75% assist) Chair Transfer Ability Maximum x 1 (75% assist) Discharge Plan OT Discharge Plan Recommend patient for rehabilitation this date. Patient is unsafe to return home alone. Patient will require 24/ care to complete ADLs and fx'l mobility. Eval Complexity Eval Charge Codes 38243 - Low Complexity PHYSICIAN CERTIFICATION: I certify the specified therapy services for Birgit Estrada are required, authorized, and reviewed every 30 days.
--- NOTE | 2024-05-01 10:02 | XR_ITS ---
PROCEDURE INFORMATION: Exam: XR Right Knee Exam date and time: 05/01/2024 10:33 AM Age: 74 years old Clinical indication: Pain; Knee; Right TECHNIQUE: Imaging protocol: Radiologic exam of the right knee. Views: 3 views. COMPARISON: CR XR KNEE RT 2V 04/25/2024 3:00 PM FINDINGS: Bones/joints: Normal. Soft tissues: Normal. IMPRESSION: No acute findings.
--- NOTE | 2024-05-01 10:21 | SW/DCPLANNER ---
Addendum entered by Shahla March 05/05/24 10:32: The plan for this patient is to discharge to [facility] level of care today. I have updated patient's nurse (Tara Aggarwal) that [facility] can transport between 2-4PM today. Addendum entered by Shahla March 05/03/24 08:00: I have updated Kristyn cavazos/ Mauri Castro that patient will not discharge today. Addendum entered by Shahla March 05/02/24 15:06: Updated patient information faxed to Kristyn Castro. Addendum entered by Shahla March 05/02/24 08:26: Kristyn stated that she can accept this patient SNF level of care tomorrow. I will update MD and patient/family. Addendum entered by Shahla March 05/01/24 12:50: Kristyn cavazos/ Mauri Castro will be onsite to speak w/ patient and family this afternoon. Original Note: I spoke w/ this patient and her family regarding plans once medically stable for discharge. PT/OT evaluated patient and recommended SNF level of care. Patient stated that she went to [facility] at the beginning of this year and would be interested in returning. Patient's family at bedside are also agreeable w/ this plan. Patient information will be faxed to Mauri Castro this AM. I will follow up w/ patient and family once reviewed by Mauri Castro. Discharge date is unknown at this time.
[2024-05-01] MEDS: IBUPROFEN 400 MG TABLET PO ×2 (11:13→19:39)
--- OUTSIDE RECORDS SUMMARY | 2024-05-01 11:33 | XMS_ITS ---
Author Organization Unknown ALLERGIES AND ADVERSE REACTIONS No information ASSESSMENT No information CHIEF COMPLAINT No information MEDICATIONS No information OBJECTIVE DATA No information PHYSICAL EXAMINATION No information TREATMENT PLAN Planned Care Start Date Provider Encounter for Check-up [id number] [facility] PROBLEMS No information RESULTS No information REVIEW OF SYSTEMS No information SUBJECTIVE DATA No information VITAL SIGNS No information
--- OUTSIDE RECORDS SUMMARY | 2024-05-01 11:33 | XMS_ITS | Clinical Summary ---
Author Organization [facility] Address [address] [place] [address] Care Team Providers Care Regional Rehabilitation Director Name Role Phone Provider, Not In System Primary Care Provider Un available Allergies No known active allergies Medications amLODIPine (NORVASC) 2.5 MG tablet Take 1 tablet (2.5 mg total) by mouth daily. 4 Active escitalopram oxalate (LEXAPRO) 10 MG tablet Take 1 tablet (10 mg total) by mouth every morning. 4 Active multivitamin per tablet Take 1 tablet by mouth daily. Active aspirin 81 MG chewable tablet Take 1 tablet (81 mg total) by mouth daily. Active ascorbic acid, vitamin C, (ascorbic acid with rebecca hips) 500 MG tablet Take 1 tablet (500 mg total) by mouth daily. Active busPIRone (BUSPAR) 5 MG tablet Take 1 tablet (5 mg total) by mouth 2 (two) times daily. 0 4 09/24/19 25 Active melatonin 3 mg tablet Take 3 tablets (9 mg total) by mouth nightly. 0 4 Active pantoprazole (PROTONIX) 40 MG tablet Take 1 tablet (40 mg total) by mouth daily. 0 4 Active ferrous sulfate (Iron, ferrous sulfate,) 325 (65 FE) MG tablet Take 1 tablet (325 mg total) by mouth every other day. 0 4 09/24/19 25 Active apixaban (ELIQUIS) 5 mg Tab tablet Take 2 tabs (10 mg) by mouth twice daily for 4 days (through 09/27/23), then take 1 tab (5 mg) twice daily thereafter (starting 09/28/23).. 60 tablet Active Active Problems Problem Noted Date Diagnosed Date Weakness 09/12/2023 Social History Tobacco Use Types Packs/Day Years Used Date Smoking Tobacco: Never Assessed Utilities Answer Date Recorded In the past 12 months, has t he electric, gas, oil, or water company threatened to shut off services in your home? No 09/12/2023 Interpersonal Safety Answer Date Record ed How often does anyone, tierney dent family and friends, physically hurt you? Never 09/12/2023 How often does anyone, tierney dent family and friends, insult or talk down to you? Never 09/12/2023 How often does anyone, tierney dent family and friends, threaten you with harm? Never 09/12/2023 How often does anyone, tierney dent family and friends, scream or curse at you? Never 09/12/2023 Housing Stability Answer Date Recorded What is your living situation today? [facility] place [facility] 09/12/[address] you li ve. Do you have problems with any of the following? None of the above 09/12/2023 Food Insecurity Answer Date Recorded Within the past 12 months, y ou worried that your food would run out before you got money to buy more. Never true 09/12/2023 Within the past 12 months, t he food you bought just didn't last and you didn't have money to get more. Never true 09/12/2023 Transportation Needs Answer Date Record ed In the past 12 months, has l ack of reliable transportation kept you from medical appointments, meetings, work or from getting things needed for daily living? No 09/12/2023 Financial Resource Strain Answer Date R ecorded How hard is it for you to pa y for the very basics like food, housing, medical care, and heating? Would you say it is: Not hard at all 09/12/2023 Employment Answer Date Recorded Do you want help finding or keeping work or a job? I do not need or want help 09/12/2023 Family and Community Support Answer [place] e Recorded If for any reason you need h elp with day-to-day activities such as bathing, preparing meals, shopping, managing finances, etc., do you get the help you need? I don't need any help 09/12/2023 Feeling Lonely or Isolated 0 09/11 Educational Attainment Answer Date Nick rded Do you speak a language other than Taiwanese at ho me? No 09/12/2023 Do you want help with school or training? For example, starting or completing job training or getting a high school diploma, GED or equivalent. No 09/12/2023 Physical Activity Answer Date Recorded Number of minutes of exercise per week 0 09/12/2023 Alcohol Use Answer Date Recorded 5 or More Drinks Per Day Past 12 Months 0 04/30/2024 Depression Answer Date Recorded Calculation of above two rows 1 Disabilities Answer Date Recorded Because of a physical, menta l, or emotional condition, do you have serious difficulty concentrating, remembering, or making decisions? (5 years or older) No 09/12/2023 Because of a physical, menta l, or emotional condition, do you have difficulty doing errands alone such as visiting a doctor's office or shopping? (15 years or older) No 09/12/2023 Substance Use Answer Date Recorded How many times in the past y ear have you used prescription drugs for non-medical reasons? Never 09/12/2023 How many times in the past year have you used [place] legal drugs? Never 09/12/2023 Comments Unknown Sex and Gender Information Value Date Recorded Sex Assigned at Female 09/12/2023 4:09 PM CDT Legal Sex Female 10:18 AM CDT Gender Identity Female 09/12/2023 4:09 PM CDT Sexual Orientation Not on file Last Filed Vital Signs Vital Sign Reading Time Taken Comments Blood Pressure 106/57 09/25/2023 12:29 AM EDT Pulse 78 09/25/2023 12:29 AM EDT Temperature 36.7 ??C (98.1 ??F) 09/25/2023 12:29 AM E DT Respiratory Rate 18 09/24/2023 9:08 PM EDT Oxygen Saturation 95% 09/24/2023 9:00 PM EDT Inhaled Oxygen Concentration - - Weight 48.5 kg (107 lb) 09/12/2023 4:50 PM EDT Height 160 cm (5' 3 ) 09/12/2023 4:50 PM EDT Body Mass Index 18.95 09/12/2023 4:50 PM EDT Plan of Treatment Health Maintenance Due Date Last Done Comments CT Colonography 1950 Colonoscopy 1950 Colorectal Cancer Screening 1950 DXA SCAN 1950 FOBT/FIT 1950 Fit-DNA (Cologuard) 1950 Sigmoidoscopy 1950 Pneumococcal 65+ years (1 of 2 - PCV) 1956 Depression Screening (12+) 1962 Tobacco Cessation Counseling and Screening (12+) 1962 Hepatitis C Screening 1968 Breast Cancer Screening 1990 Shingles Vaccine (Zoster) (1 of 2) 2000 Medicare Initial AWV G0438 2016 Falls Risk Screening 06/14/2023 COVID-19 VACCINE (2023-2 5 season) 2024 05/18/2023, 03/10/2022, 11/04/2021, Additional history exists Influenza Vaccine (#1) 2024 03/13/2021 Respiratory Syncytial Virus (RSV) Adult or (1 - 1-dose 75+ series) 2025 DTAP/TDAP/TD VACCINES (2 - T d or Tdap) 10/07/2032 10/07/2022 Insurance MEDICARE PART A B SUPP Advance Directives For more information, please contact: [phone] * DNR - Limited Additional Intervention (Latest Code Status on File) Date Activated Date Inactivated Comments 09/16/2023 9:25 AM 09/25/2023 12:24 PM If no pulse: NO intervention If has pulse: NO Intubation. May use BiPAP/CPAP Call VAULT SERVICE MECHANIC * Full Code Date Activated Date Inactivated Comments 09/12/2023 4:56 PM 09/16/2023 9:25 AM Care Teams Regional Rehabilitation Director Relationship Specialty Start Date End Date Provider, Not In System [place] PCP - General 09/12/23
--- OUTSIDE RECORDS SUMMARY | 2024-05-01 11:33 | XMS_ITS | Referral Summary ---
Author Organization [facility] Address [address] [place] [address] Care Team Providers Care First Helper Name Role Phone Provider, Not In System [...] your living situation today? I have a [facility] place to live 09/12/2023 Think about [...] Do you speak a language other than Dominican at ho me? No 09/12/2023 Do you [...] 09/12/2023 4:50 PM EDT Plan of Treatment Not on file Insurance MEDICARE PART A B Advance Directives For more information, please contact: [phone] * DNR - Limited Additional Intervention (Latest Code Status on File) Date Activated Date Inactivated Comments 09/16/2023 9:25 AM 09/25/2023 12:24 PM If no pulse: NO intervention If has pulse: NO Intubation. May use BiPAP/CPAP Call PHOTOENGRAVING FINISHER * Full Code Date Activated Date Inactivated Comments 09/12/2023 4:56 PM 09/16/2023 9:25 AM Care Teams First Helper Relationship Specialty Start Date End Date Provider, Not In System [place] PCP - General 09/12/23
--- OUTSIDE RECORDS SUMMARY | 2024-05-01 11:35 | XMS_ITS | Encounter Summary ---
Author Organization [employer] Address [address] [place] [address] Care Team Providers Care Bridge Worker Apprentice Name Role Phone Provider, Not In System Primary Care Provider Un available Reason for Visit * Auth/Cert (Routine) Specialty Diagnoses / Procedures Referred By Lorena campbell Referred To Contact Diagnoses Weakness HYPONATREMIA [facility] [address] [place] [address] Phone: tel: fax: [facility] [address] [place] [address] Phone: tel: fax: Referral ID Status Reason Start Date Expiration Date Visits Re quested Visits Authorized [id number] 1 1 Encounter Details Date Type Department Care Team (Late st Contact Info) Description 09/12/2023 4:32 PM EDT - 09/25/2023 11:19 AM EDT Hospital Encounter [facility] [address] [place] [address] Natty Mccarty MD [address] [facility] [address] [address] Cornelius Mccarty MD [address] [facility] [address] [id number] Dede Rendon APRN [address] [facility] [address] [id number] Discharge Disposition: [facility] Facility Social History Tobacco Use Types Packs/Day Years [...] your living situation today? I have a [facility] place to live 09/12/2023 Think about the [...] Do you speak a language other than Filipino at [facility]? No 09/12/2023 Do you want help with school or training? For example, starting or completing job training or getting a high school diploma, GED or equivalent. No 09/12/2023 Physical Activity Answer Date Recorded Number of minutes of exercise per week 0 09/12/2023 Alcohol Use Answer Date Recorded 5 or More Drinks Per Day Past 12 Months 0 09/12/2023 Depression Answer Date Recorded Calculation of above [...] PM CDT Sexual Orientation Not on file documented as of this encounter Last Filed Vital Signs Vital Sign Reading [...] Mass Index 18.95 09/12/2023 4:50 PM EDT documented in this encounter Discharge Summaries * Dede Rendon, APARTMENT COMMUNITY ASSISTANT MANAGER - 09/25/2023 7:38 AM EDT Patient Name: Birgit Estrada : 1950 Date of Admission: 09/12/2023 Date of Discharge: September 24, 2023 Primary Care Physician: Provider Not In System Consultations: Treatment Team: Consulting Physician: Haven Mooney MD Consulting Physician: Crescencio Perkins MD Consulting Physician: Vlad Negron MD Consulting Physician: Virgilio Rg MD Consulting Physician: Syed Wakefield MD Consulting Physician: Sim Cole MD Consulting Physician: Catherine Aguirre MD Consulting Physician: Oskar Chin MD Discharge Diagnoses: Weakness Weakness Hyponatremia Altered mental status UTI Right hip hematoma Rhabdomyolysis Right lower extremity deep vein thrombosis Anemia requiring blood transfusion Elevated liver enzymes Reason for Admission: Per 09/11 admitting HPI, This is 73-year-old female admitted at outlying facility because patient was weakness history of fall with right hip pain patient been evaluated there she was found with hyponatremia she started on normal saline at CT chest and head which was negative patient transferred to [facility] to be evaluated by nephrology patient came in blood work ordered started on antibiotic IV fluids regular diet and pain control Hospital Course: Acute metabolic encephalopathy, suspect delirium versus discontinuation syndrome as antidepressant has been held Restart lexapro/ buspar CT head negative Schedule melatonin Sleep-wake precautions ?? Hyponatremia, improved. multifactorial with low serum osmolality, markedly elevated urine osmolality and low urine sodium. HCTZ, PETROS inhibitor, SSRI held on admission Restart SSRI 09/21 Lasix 20mg daily at tx Stop HCTZ Sodium 133 Continue 1500 mL fluid restriction Encourage nutrition/ po ?? Complicated UTI ID consult, greatly appreciate assistance recommendations Completed Doxy/ceftriaxone 09/19 Continue monitor off antibiotics ?? MDD/anxiety Restart Lexapro, BuSpar ?? HTN Discontinue PETROS, do not restart at discharge amlodipine ?? Mechanical ground-level fall Bilateral lower extremity weakness Fall precautions PT OT consult Neurology consult, greatly appreciate assistance recommendations ?? Massive hematomas, psoas hematoma from fall requiring PRBC transfusion, subsequent rhabdo Ortho consult, signed off as no acute fractures Hemoglobin has been stable Normocytic normochromic anemia Iron deficient anemia Start ferrous sulfate 325 every other day Hemoglobin stable at 8 on day of discharge Referral for outpatient EGD colonoscopy sent Recommend CBC in 1 week. ?? Acute pain secondary to bruising from falls Stop narcotics Decrease gabapentin 100 mg nightly only Tylenol first-line ?? Right lower extremity VTE, provoked Apixaban x 3 months then reimage PPI daily while on anticoagulation Vascular surgery consulted, signed off: Recommend continuing therapeutic anticoagulation. If felt by the other teams that she is unable to tolerate anticoagulation then could consider IVC filter. Nourgent vascular intervention recommended if tolerating anticoagulation. Vascular will follow peripherally weekly. Please contact with questions or concerns. She is scheduled for follow up 12/13/23 at 11am with right lower extremity venous duplex.?? 5mm RML nodule Lung marivel consulted for longitudinal f/up Transaminitis: Believed secondary to rhabdo ?? #Diet: Regular diet, 1200 mL fluid restriction #VTE Ppx: Apixaban #GI Ppx (if indicated): Pantoprazole #Code Status: DNR #Medical decision maker: Family Studies Performed: Results for orders placed or performed during the hospital encounter of 09/12/23 Blood Culture Antecubital, Right Specimen: Antecubital, Right; Blood Result Value Ref Range Result No growth in 5 days Blood Culture Forearm, Left Specimen: Forearm, Left; Blood Result Value Ref Range Result No growth in 5 days Urine Culture Specimen: Urine, Clean Catch Result Value Ref Range Result No growth Blood Culture Specimen: Blood Result Value Ref Range Result No growth in 5 days Blood Culture Arm, Right Lower Specimen: Arm, Right Lower; Blood Result Value Ref Range Result No growth in 5 days Comprehensive Metabolic Panel Result Value Ref Range Sodium 121 (L) 136 - 146 meq/L Potassium 4.4 3.5 - 5.1 meq/L Chloride 88 (L) 102 - 112 meq/L CO2 27 21 - 32 meq/L Calcium 8.2 (L) 8.4 - 10.1 mg/dL Glucose 162 (H) 74 - 106 mg/dL BUN 30 (H) 7 - 22 mg/dL Creatinine 1.03 (H) 0.55 - 1.02 mg/dL BUN/Creatinine 29 (H) 8 - 20 Albumin 2.9 (L) 3.4 - 5.0 g/dL Alkaline Phosphatase 45 27 - 136 U/L ALT 163 (H) 13 - 56 U/L AST 216 (H) 5 - 37 U/L Total Bilirubin 0.9 0.2 - 1.2 mg/dL Protein, Total 5.2 (L) 6.4 - 8.2 gm/dL Anion Gap 10 9 - 20 A/G Ratio 1.3 1.1 - 2.5 Globulin 2.3 1.5 - 4.5 g/dL Osmolality Calc 253.8 eGFR (mL/min/1.73m2) 58 (L) >=60 mL/min/1.73m2 CBC with automated diff Result Value Ref Range WBC 13.2 (H) 4.0 - 10.0 K/??L RBC 2.85 (L) 3.93 - 5.22 M/??L Hemoglobin 8.5 (L) 11.2 - 15.7 GM/DL Hematocrit 23.6 (L) 34.1 - 44.9 % MCV 83 79 - 95 fL MCH 29.8 25.6 - 32.2 pg MCHC 36.0 (H) 32.2 - 35.5 GM/DL RDW 12.6 11.7 - 14.4 % Platelets 184 140 - 375 K/CU MM MPV 11.7 9.4 - 12.3 fL % Neutros 95 (H) 34 - 71 % % Lymphs 3 (L) 19 - 52 % % Monos 2 (L) 5 - 13 % % Eos 0 (L) 1 - 6 % % Baso 0 0 - 1 % NRBC Absolute <0.01 0 - 0.012 K/ul # Neutros 12.48 (H) 1.56 - 6.13 K/??L # Lymphs 0.38 (L) 1.18 - 3.74 K/??L # Monos 0.29 0.24 - 0.86 K/??L # Eos <0.03 (L) 0.04 - 0.36 K/??L # Baso <0.03 0.01 - 0.08 K/??L Immature Granulocytes-Relative 0.30 0.01 - 0.43 % # IG 0.04 (H) 0.00 - 0.03 K/uL Prothrombin time/INR Result Value Ref Range Protime 10.9 9.0 - 12.0 seconds INR 0.99 0.80 - 1.10 aPTT Result Value Ref Range PTT 23.2 22.0 - 32.0 seconds PROBNP Result Value Ref Range ProBNP (pg/mL) 1,616 (H) 0 - 125 pg/mL Lactic Acid with reflex Result Value Ref Range Lactic Acid Level (mmol/L) 1.8 0.4 - 2.0 mmol/L High Sensitivity Troponin I Result Value Ref Range Troponin I High Sensitivity (pg/mL) 13.1 3 - 58.8 pg/mL Blood Gas, Arterial Result Value Ref Range pH, Arterial 7.51 (H) 7.35 - 7.45 pCO2, Arterial 34 (L) 35 - 45 mm Hg pO2, Arterial 68 (L) 80 - 100 mm Hg HCO3, Arterial 27 (H) 20 - 26 mmol/L Base Excess, Arterial 4.1 (H) -2.0 - 2.0 mmol/L O2 Sat, Arterial 95.7 95.0 - 100.0 % CTO2 ARTERIAL 11.9 mmol/L THB ARTERIAL 9.0 (L) 12.0 - 18.0 g/dL [facility] COLLECTION SITE Right Radial Arterial Puncture Yes Blood Gas PT Temperature C 37.0 Marques's Test Acceptable ABG Number of Draw Attempts 1 Comment room air Performed by: Agapito Coronel DIRT BIKE MECHANIC FIO2 Blood Gas Temperature Corrected Results No No Procalcitonin Result Value Ref Range Procalcitonin <0.14 <=0.50 ng/mL Urinalysis w/Microscopic Result Value Ref Range Color, UA Yellow Clarity, UA Turbid (A) Clear Specific [place], UA 1.041 (H) 1.005 - 1.030 pH, UA 6.0 6.0 - 8.0 Leukocytes, UA Negative Negative Nitrite, UA Negative Negative Protein, UA 1+ (A) Negative Glucose, UA Normal Normal Ketones, UA Negative Negative Urobilinogen, UA Normal Normal Bilirubin, UA Negative Negative Blood, UA 3+ (A) Negative RBC, UA 0-2 (A) None Seen /HPF WBC, UA 11-20 (A) None Seen /HPF Bacteria, UA 1+ (A) None Seen, Trace Mucus 1+ (A) None Seen SQUAMOUS EPITHELIAL 3-5 (A) None Seen /HPF Specimen Source Urine, Voided Urine Drug Screen Result Value Ref Range Amphetamine Urine Negative Negative Barbiturate Screen Negative Negative Benzodiazepine Screen Negative Negative Cocaine (Metab.) Screen Negative Negative Opiate Screen Positive (A) Negative Phencyclidine Screen Negative Negative Tricyclic Screen Negative Negative Tetrahydrocannabinol Negative Negative Creatinine, Ur 165.0 mg/dL pH, UA 5.5 (L) 6.0 - 8.0 CBC Scan Result Value Ref Range Platelet Estimate Adequate Adequate RBC Morphology Normal Normal CBC - Hemogram (SJ-BKR) Result Value Ref Range WBC 15.2 (H) 4.0 - 10.0 K/??L RBC 2.99 (L) 3.93 - 5.22 M/??L Hemoglobin 9.1 (L) 11.2 - 15.7 GM/DL Hematocrit 24.6 (L) 34.1 - 44.9 % MCV 82 79 - 95 fL MCH 30.4 25.6 - 32.2 pg MCHC 37.0 (H) 32.2 - 35.5 GM/DL RDW 12.5 11.7 - 14.4 % Platelets 205 140 - 375 K/CU MM MPV 11.6 9.4 - 12.3 fL Basic Metabolic Panel Result Value Ref Range Sodium 122 (L) 136 - 146 meq/L Potassium 4.4 3.5 - 5.1 meq/L Chloride 90 (L) 102 - 112 meq/L CO2 26 21 - 32 meq/L Anion Gap 10 9 - 20 BUN 26 (H) 7 - 22 mg/dL Creatinine 0.87 0.55 - 1.02 mg/dL BUN/Creatinine 30 (H) 8 - 20 Glucose 128 (H) 74 - 106 mg/dL Calcium 8.0 (L) 8.4 - 10.1 mg/dL Osmolality Calc 252.3 eGFR (mL/min/1.73m2) >60 >=60 mL/min/1.73m2 Ammonia Result Value Ref Range Ammonia 16 11 - 32 ??mol/L Lactic Acid with reflex (SJ) Result Value Ref Range Lactic Acid Level (mmol/L) 1.0 0.4 - 2.0 mmol/L Procalcitonin Result Value Ref Range Procalcitonin <0.14 <=0.50 ng/mL Basic Metabolic Panel Result Value Ref Range Sodium 124 (L) 136 - 146 meq/L Potassium 4.2 3.5 - 5.1 meq/L Chloride 91 (L) 102 - 112 meq/L CO2 28 21 - 32 meq/L Anion Gap 9 9 - 20 BUN 24 (H) 7 - 22 mg/dL Creatinine 0.94 0.55 - 1.02 mg/dL BUN/Creatinine 26 (H) 8 - 20 Glucose 98 74 - 106 mg/dL Calcium 8.4 8.4 - 10.1 mg/dL Osmolality Calc 253.7 eGFR (mL/min/1.73m2) >60 >=60 mL/min/1.73m2 Osmolality, serum Result Value Ref Range Osmolality Serum 261 mOsm/kg Osmolality, urine Result Value Ref Range Osmolality, Ur 892 50 - 1,400 mOsm/kg Sodium, random urine Result Value Ref Range Sodium Urine <15 meq/L Sodium Result Value Ref Range Sodium 125 (L) 136 - 146 meq/L Sodium Result Value Ref Range Sodium 125 (L) 136 - 146 meq/L CBC w Manual Diff (SJ-BKR) Result Value Ref Range WBC 13.4 (H) 4.0 - 10.0 K/??L RBC 2.69 (L) 3.93 - 5.22 M/??L Hemoglobin 7.9 (L) 11.2 - 15.7 GM/DL Hematocrit 22.4 (L) 34.1 - 44.9 % MCV 83 79 - 95 fL MCH 29.4 25.6 - 32.2 pg MCHC 35.3 32.2 - 35.5 GM/DL RDW 12.8 11.7 - 14.4 % Platelets 180 140 - 375 K/CU MM MPV 11.0 9.4 - 12.3 fL Comprehensive metabolic panel Result Value Ref Range Sodium 124 (L) 136 - 146 meq/L Potassium 4.1 3.5 - 5.1 meq/L Chloride 94 (L) 102 - 112 meq/L CO2 24 21 - 32 meq/L Calcium 8.0 (L) 8.4 - 10.1 mg/dL Glucose 103 74 - 106 mg/dL BUN 22 7 - 22 mg/dL Creatinine 0.80 0.55 - 1.02 mg/dL BUN/Creatinine 28 (H) 8 - 20 Albumin 2.3 (L) 3.4 - 5.0 g/dL Alkaline Phosphatase 36 27 - 136 U/L ALT 213 (H) 13 - 56 U/L AST 308 (H) 5 - 37 U/L Total Bilirubin 0.9 0.2 - 1.2 mg/dL Protein, Total 4.5 (L) 6.4 - 8.2 gm/dL Anion Gap 10 9 - 20 A/G Ratio 1.0 (L) 1.1 - 2.5 Globulin 2.2 1.5 - 4.5 g/dL Osmolality Calc 253.2 eGFR (mL/min/1.73m2) >60 >=60 mL/min/1.73m2 Lactic acid () Result Value Ref Range Lactic Acid Level (mmol/L) 0.9 0.4 - 2.0 mmol/L Vitamin B12 Result Value Ref Range Vitamin B12 560 193 - 986 pg/mL Folate, Serum Result Value Ref Range Folate 14.60 3.10 - 17.50 ng/mL Manual Differential Result Value Ref Range Total Counted 100 % Neutros (manual) 84 (H) 50 - 65 % % Lymphs (manual) 12 (L) 24 - 44 % % Monos (manual) 4 4 - 5 % Platelet Estimate Adequate Adequate ANC# 11.26 K/??L Sodium Result Value Ref Range Sodium 126 (L) 136 - 146 meq/L Sodium Result Value Ref Range Sodium 125 (L) 136 - 146 meq/L Sodium Result Value Ref Range Sodium 126 (L) 136 - 146 meq/L Basic Metabolic Panel Result Value Ref Range Sodium 126 (L) 136 - 146 meq/L Potassium 4.1 3.5 - 5.1 meq/L Chloride 91 (L) 102 - 112 meq/L CO2 27 21 - 32 meq/L Anion Gap 12 9 - 20 BUN 19 7 - 22 mg/dL Creatinine 0.82 0.55 - 1.02 mg/dL BUN/Creatinine 23 (H) 8 - 20 Glucose 112 (H) 74 - 106 mg/dL Calcium 8.4 8.4 - 10.1 mg/dL Osmolality Calc 256.4 eGFR (mL/min/1.73m2) >60 >=60 mL/min/1.73m2 CBC - Hemogram (-BKR) Result Value Ref Range WBC 15.7 (H) 4.0 - 10.0 K/??L RBC 3.15 (L) 3.93 - 5.22 M/??L Hemoglobin 9.4 (L) 11.2 - 15.7 GM/DL Hematocrit 26.6 (L) 34.1 - 44.9 % MCV 84 79 - 95 fL MCH 29.8 25.6 - 32.2 pg MCHC 35.3 32.2 - 35.5 GM/DL RDW 13.2 11.7 - 14.4 % Platelets 259 140 - 375 K/CU MM MPV 11.0 9.4 - 12.3 fL *Note: Due to a large number of results and/or encounters for the requested time period, some results have not been displayed. A complete set of results can be found in Results Review. Radiology Results (last 7 days) Procedure Component Value Units Date/Time CT brain without IV contrast [[id number]] Collected: 09/21/23 182 Order Status: Completed Updated: 09/21/231824 Narrative: CT HEAD WITHOUT IV CONTRAST 09/21/2023 6:00 AM HISTORY: Mental status change, unknown cause TECHNIQUE: Multiple axial CT images were performed from the foramen magnum to the vertex. Coronal reformatted images were reconstructed from axial data set. Individualized dose reduction techniques using automated exposure control or adjustment of mA and/or kV according to the patient size were employed. COMPARISON: CT 09/13/2023, MRI 09/16/2023 FINDINGS: No acute intracranial hemorrhage or large acute cortical infarct. Chronic small vessel ischemic white matter changes and generalized cerebral volume loss are present. Ventricles are mildly prominent. No midline shift. The basal cisterns are patent. No skull fracture. The visualized paranasal sinuses and mastoid air cells are clear. Impression: No acute intracranial hemorrhage or large acute cortical infarct. Images personally reviewed, interpreted and dictated by Sarwat Santos M.D. CT ABDOMEN/PELVIS WITHOUT IV CONTRAST Standard Protocol [[id number]] Collected: 09/18/23 1356 Order Status: Completed Updated: 09/18/23 1411 Narrative: CT SCAN OF THE ABDOMEN AND PELVIS WITHOUT CONTRAST; 09/18/2023 1:26 PM HISTORY: Right psoas hematoma. COMPARISON: September 14, 2023. PROCEDURE: Axial images were obtained from the lung bases to the pubic symphysis by computed tomography. This study was performed with techniques to keep radiation doses as low as reasonably achievable, (ALARA). Individualized dose reduction techniques using automated exposure control or adjustment of mA and/or kV according to the patient size were employed. FINDINGS: ABDOMEN: A 5 mm nodule in the right middle lobe is stable. There are moderate bilateral pleural effusions. There is bibasilar consolidation. The gallbladder is absent. There is mild right hydronephrosis. There is no nephrolithiasis. The left kidney is unremarkable. There is extensive stool throughout the colon. PELVIS: Anasarca is noted. There is trace ascites. The urinary bladder is unremarkable. There is fecal impaction in the rectal vault. Impression: Pleural effusions and bibasilar consolidation, probably secondary to pneumonia. Follow-up to complete resolution recommended. Mild right hydronephrosis of uncertain etiology. Constipation. Images reviewed, interpreted, and dictated by Jairo Acosta MD Microbiology Results (last 7 days) Procedure Component Value Units Date/Time Blood Culture [[id number]] Collected: 09/19/23 1137 Order Status: Completed Specimen: Blood Updated: 09/24/23 1344 Result No growth in 5 days Blood Culture Arm, Right Lower [[id number]] Collected: 09/19/23 1146 Order Status: Completed Specimen: Blood from Arm, Right Lower Updated: 09/24/23 1344 Result No growth in 5 days Discharge Medications: Your medication list START taking these medications Instructions Comments Quantity Refills apixaban 5 mg Tab tablet Commonly known as: ELIQUIS Take 2 tabs (10 mg) by mouth twice daily for 4 days (through 09/27/23), then take 1 tab (5 mg) twicedaily thereafter (starting 09/28/23).. Pt has gotten 7 doses of 10 mg while inpatient 60 tablet 0 docusate sodium 100 MG capsule Commonly known as: COLACE Take 1 capsule (100 mg total) by mouth 2 (two) times daily as needed for Constipation for up to 10 days. 10 capsule 0 ferrous sulfate 325 (65 FE) MG tablet Commonly known as: Iron (ferrous sulfate) Take 1 tablet (325 mg total) by mouth every other day. 0 furosemide 20 MG tablet Commonly known as: LASIX Take 1 tablet (20 mg total) by mouth daily for 30 days. 30 tablet 0 gabapentin 100 MG capsule Commonly known as: NEURONTIN Take 1 capsule (100 mg total) by mouth nightly for 3 days. Max Daily Amount: 100 mg 3 capsule 0 melatonin 3 mg tablet Take 3 tablets (9 mg total) by mouth nightly. 0 pantoprazole 40 MG tablet Commonly known as: PROTONIX Take 1 tablet (40 mg total) by mouth daily. 0 QUEtiapine 25 MG tablet Commonly known as: SEROquel Take 1 tablet (25 mg total) by mouth nightly for 3 days. 3 tablet 0 CHANGE how you take these medications Instructions Comments Quantity Refills busPIRone 5 MG tablet Commonly known as: BUSPAR What changed: ?? medication strength ?? how much to take Take 1 tablet (5 mg total) by mouth 2 (two) times daily. 0 CONTINUE taking these medications Instructions Comments Quantity Refills amLODIPine 2.5 MG tablet Commonly known as: NORVASC Take 1 tablet (2.5 mg total) by mouth daily. 0 ascorbic acid with rebecca hips 500 MG tablet Generic drug: ascorbic acid (vitamin C) Take 1 tablet (500 mg total) by mouth daily. 0 aspirin 81 MG chewable tablet Take 1 tablet (81 mg total) by mouth daily. 0 escitalopram oxalate 10 MG tablet Commonly known as: LEXAPRO Take 1 tablet (10 mg total) by mouth every morning. 0 multivitamin per tablet Take 1 tablet by mouth daily. 0 STOP taking these medications benazepriL 40 MG tablet Commonly known as: LOTENSIN cefdinir 300 MG capsule Commonly known as: OMNICEF hydroCHLOROthiazide 25 MG tablet Commonly known as: HYDRODIURIL Where to Get Your Medications These medications were sent to [facility] at [address] [address] ?? apixaban 5 mg Tab tablet ?? furosemide 20 MG tablet ?? gabapentin 100 MG capsule ?? QUEtiapine 25 MG tablet Information about where to get these medications is not yet available Ask your nurse or doctor about these medications ?? busPIRone 5 MG tablet ?? docusate sodium 100 MG capsule ?? ferrous sulfate 325 (65 FE) MG tablet ?? melatonin 3 mg tablet ?? pantoprazole 40 MG tablet Physical Exam Constitutional: Appearance: Normal appearance. HENT: Head: Normocephalic and atraumatic. Nose: Nose normal. Mouth/Throat: Mouth: Mucous membranes are moist. Eyes: Pupils: Pupils are equal, round, and reactive to light. Cardiovascular: Rate and Rhythm: Normal rate and regular rhythm. Pulses: Normal pulses. Heart sounds: Normal heart sounds. No murmur heard. Pulmonary: Effort: Pulmonary effort is normal. No respiratory distress. Comments: Dim in bases Abdominal: General: Abdomen is flat. Bowel sounds are normal. Palpations: Abdomen is soft. Musculoskeletal: Comments: Multi-Podus boots in place JAMEY hose in place Skin: General: Skin is warm and dry. Capillary Refill: Capillary refill takes less than 2 seconds. Comments: resolving ecchymosis noted over chest wall, bilateral thighs Neurological: General: No focal deficit present. Mental Status: She is alert. She is oriented, confabulating much less. Comments: Psychiatric: Mood and Affect: Mood normal. Behavior: Behavior normal. Discharge Follow Up Appts: Contact information for follow-up Junior Helio MD Specialty: Vascular Surgery, Surgery, General Surgery [address] [place] [address] [facility] [id number] Next Steps: Go on 12/13/2023 Instructions: follow-up on 12/13/23, 11 am with right lower extremity venous duplex Aurelia Luke APRN Specialty: Neurology, Nurse Practitioner [address] [address] Next Steps: Go in 1 month(s) Instructions: Neurology follow up 10/19/23 @10:30am. The office will be mailing you paperwork. Please fill it out and bring it with you to your appointment. [facility] Specialty: [facility] Facility [facility] [place] [address] [address] [facility] [id number] Next Steps: Follow up Provider Not In System Relationship: PCP - General [place] Next Steps: Go in 1 week(s) Instructions: Patient should discuss the right sided hydronephrosis seen on pelvic CT with her outpatient physicians. Time Spent: I have spent 35 minutes discharging this patient including time spent discussing with nursing case management, consultants, as well as time spent educating patient on diagnoses and medication changes. Electronically signed by DEDE RENDON APRN, 09/25/23, 7:38 AM EDT Cosigned by Eldon Mann MD at 09/29/2023 5:35 PM EDT * Cornelius Mccarty MD - 09/21/2023 4:45 PM EDT Patient Name: Birgit Estrada : 1950 Date of Admission: 09/12/2023 Date of Discharge: 09/22/2023 Primary Care Physician: Provider Not In System Consultations: Treatment Team: Consulting Physician: Haven Mooney MD Consulting Physician: Crescencio Perkins MD Consulting Physician: Vlad Negron MD Consulting Physician: Virgilio Rg MD Consulting Physician: Syed Wakefield MD Consulting Physician: Sim Cole MD Consulting Physician: Catherine Aguirre MD Consulting Physician: Oskar Chin MD Discharge Diagnoses: Weakness Hyponatremia Altered mental status UTI Right hip hematoma Rhabdomyolysis Right lower extremity deep vein thrombosis Anemia requiring blood transfusion Elevated liver enzymes Reason for Admission: This is 73-year-old female admitted at outlying facility because patient was weakness history of fall with right hip pain patient been evaluated there she was found with hyponatremia she started on normal saline at CT chest and head which was negative patient transferred to [facility] to be evaluated by nephrology patient came in blood work ordered started on antibiotic IV fluids regulardiet and pain control ?? #1 hyponatremia Patient mid to the hospital from nephrology evaluation will check electrolytes start IV fluid CT of chest done with no apparent malignancy ?? 2 pneumonia patient already on IV Zosyn doxycycline breathing treatment oxygen cultures ordered ?? #3 dehydration patient started on IV fluid ?? #4 anxiety restart Xanax as needed ?? #5 hypertension start hydralazine as needed ?? #6 GI prophylaxis Pepcid ?? #7 right hip hematoma will consult Ortho start pain control ?? Hospital Course: 1. Pyuria with possible acute bacterial cystitis. Urine culture from 09/11 negative. Partially treated. 2. Right hip hematoma after fall 09/05/2023. X-ray without fracture on 09/15. Right psoas muscle with intramuscular hematoma from CT abdomen and pelvis 09/13. 3. Right sternocleidomastoid muscle loculated signal, potential hematoma seen on MRI 09/16. 4. Reported chest x-ray infiltrate resolved. Could have had atelectasis, and is at risk for pulmonary embolus given demonstration of new DVT. CT scan of the abdomen and pelvis with basilar infiltrate. 5. DVT right lower leg soleus and peroneal veins positive duplex 09/13/2023. 6. Leukocytosis, neutrophilic related to above issues. Worse. May be related to cystitis versus other. Blood cultures x 2 from 09/11 negative. 7. Hyponatremia related to above issues, medications, possible SIADH, versus other. 130. Ongoing. 8. Anemia, related to above issues and right hip hematoma. Minimally worse. 9. Hypocalcemia 8.0. 10. Elevated transaminase with ALT 213, ongoing, AST 308, ongoing, total bilirubin 0.9, alkaline phosphatase 45. Reportedly CT scan abdomen and pelvis at outside hospital without significant pathology. May need to repeat ultrasound versus other. Likely also related to muscle injury. 11. Rhabdo, CK 2217, ongoing. Related to her recent fall and trauma to leg. 12. Encephalopathy, toxic and metabolic. MRI brain without intracranial abnormalities from 09/16. ?? Ms. Estrada is a 73 year old female found to have right peroneal and soleal vein DVT this admission.She has been started on therapeutic lovenox 1mg/kg BID. She last required pRBC transfusion 09/17/23 and Hgb has remained low but stable since that time. Recommend continuing therapeutic anticoagulation. If felt by the other teams that she is unable to tolerate anticoagulation then could consider IVC filter. No urgent vascular intervention recommended if tolerating anticoagulation. Vascular will follow peripherally weekly. Please contact with questions or concerns. She is scheduled for follow up 12/13/23 at 11am with right lower extremity venous duplex. 09/20/2023 73-year-old female with multiple medical problems admitted to the hospital with confusion hyponatremia patient was confused secondary to metabolic encephalopathy had hyponatremia which resolved with IV fluid medication adjusted patient back to baseline alert awake. Patient was found with rhabdomyolysis which improved with IV fluid. She was found with lower extremity pain thrombosis started on heparin drip and she will be switched to oral Eliquis Patient with anemia required blood transfusion Medically stable can be discharged to rehab to follow-up as outpatient with neurology and vascular surgery 09/21/2023 Patient medically stable can be discharged nursing home facility In a.m. 09/22/2023 dev manager work with discharge plan Studies Performed: Procedures Performed: Discharge Medications: Your medication list START taking these medications Instructions Comments Quantity Refills apixaban 5 mg Tab tablet Commonly known as: ELIQUIS Take 2 tabs (10 mg) by mouth twice daily for 7 days, then take 1 tab (5 mg) twice daily thereafter.. 74 tablet 0 cyclobenzaprine 10 MG tablet Commonly known as: FLEXERIL Take 1 tablet (10 mg total) by mouth 3 (three) times daily as needed for Muscle spasms for up to 10days. 30 tablet 0 gabapentin 100 MG capsule Commonly known as: NEURONTIN Take 1 capsule (100 mg total) by mouth 3 (three) times daily for 3 days. Max Daily Amount: 300 mg 9 capsule 0 CONTINUE taking these medications Instructions Comments Quantity Refills amLODIPine 2.5 MG tablet Commonly known as: NORVASC Take 1 tablet (2.5 mg total) by mouth daily. 0 ascorbic acid with rebecca hips 500 MG tablet Generic drug: ascorbic acid (vitamin C) Take 1 tablet (500 mg total) by mouth daily. 0 aspirin 81 MG chewable tablet Take 1 tablet (81 mg total) by mouth daily. 0 benazepriL 40 MG tablet Commonly known as: LOTENSIN Take 1 tablet (40 mg total) by mouth 2 (two) times daily. 0 escitalopram oxalate 10 MG tablet Commonly known as: LEXAPRO Take 1 tablet (10 mg total) by mouth every morning. 0 multivitamin per tablet Take 1 tablet by mouth daily. 0 STOP taking these medications busPIRone 10 MG tablet Commonly known as: BUSPAR cefdinir 300 MG capsule Commonly known as: OMNICEF hydroCHLOROthiazide 25 MG tablet Commonly known as: HYDRODIURIL Where to Get Your Medications Information about where to get these medications is not yet available Ask your nurse or doctor about these medications ?? apixaban 5 mg Tab tablet ?? cyclobenzaprine 10 MG tablet ?? gabapentin 100 MG capsule Physical Exam ?? Head atraumatic normocephalic Pupils round and reactive Eyes no conjunctival injection or discharge Ears no discharge Nose no bleeding or discharge Mouth dry Neck supple forage of motion Chest diminished entry bilaterally no wheezes ??heart S1 and S2 healed regular rate Abdomen soft audible bowel sounds Extremities bilateral extremity edema with right hip discoloration Neurological patient alert awake move extremities Psychiatric anxiety Skin right hip area discoloration ?? Discharge Instructions Discharge Diet: Regular diet Discharge Activity: As tolerated Discharge Follow UP: Primary care physician 3 to 4 days Nephrology 1 to 2-week Neurology 1 to 2-week Vascular surgery in 1 to 2-week Disposition nursing home facility She is scheduled for follow up 12/13/23 at 11am with right lower extremity venous duplex. Contact information for follow-up Junior Helio MD Specialty: Vascular Surgery, Surgery, General Surgery [address] [facility] [id number] Next Steps: Go on 12/13/2023 Instructions: follow-up on 12/13/23, 11 am with right lower extremity venous duplex Aurelia Luke APRN Specialty: Neurology, Nurse Practitioner [address] [address] Next Steps: Go in 1 month(s) Instructions: Neurology follow up 10/19/23 @10:30am. The office will be mailing you paperwork. Please fill it out and bring it with you to your appointment. [facility] Specialty: [facility] [address] [facility] [address] [facility] [address] Next Steps: Follow up Time Spent: 45 min Electronically signed by Cornelius Mccarty MD, 09/21/23, 4:45 PM EDT documented in this encounter Discharge Instructions * Attachments The following attachments cannot be sent through Care Everywhere. * Weakness [id number] (Filipino) * Hematoma [id number]-Eedu (Filipino) * Pleural Effusion (Filipino) * Deep Vein Thrombosis (Filipino) * Fall Prevention in the Home Adult [id number] (Filipino) * Understanding Your Risk for Falls (Filipino) documented in this encounter Medications at Time of Discharge amLODIPine (NORVASC) 2.5 MG tablet Take 1 tablet (2.5 mg total) by mouth daily. 07/08/2023 apixaban (ELIQUIS) 5 mg Tab tablet Take 2 tabs (10 mg) by mouth twice daily for 4 days (through 09/27/23), then take 1 tab (5 mg) twice daily thereafter (starting 09/28/23).. 60 tablet 09/24/2023 ascorbic acid, vitamin C, (ascorbic acid with rebecca hips) 500 MG tablet Take 1 tablet (500 mg total) by mouth daily. aspirin 81 MG chewable tablet Take 1 tablet (81 mg total) by mouth daily. busPIRone (BUSPAR) 5 MG tablet Take 1 tablet (5 mg total) by mouth 2 (two) times daily. 0 09/24/2023 5 escitalopram oxalate (LEXAPRO) 10 MG tablet Take 1 tablet (10 mg total) by mouth every morning. 07/28/2023 ferrous sulfate (Iron, ferrous sulfate,) 325 (65 FE) MG tablet Take 1 tablet (325 mg total) by mouth every other day. 0 09/24/2023 5 melatonin 3 mg tablet Take 3 tablets (9 mg total) by mouth nightly. 0 09/24/2023 multivitamin per tablet Take 1 tablet by mouth daily. pantoprazole (PROTONIX) 40 MG tablet Take 1 tablet (40 mg total) by mouth daily. 0 09/25/2023 docusate sodium (COLACE) 100 MG capsule Take 1 capsule (100 mg total) by mouth 2 (two) times daily as needed for Constipation for up to 10 days. 10 capsule 09/24/2023 4 furosemide (LASIX) 20 MG tablet Take 1 tablet (20 mg total) by mouth daily for 30 days. 30 tablet 09/24/2023 4 gabapentin (NEURONTIN) 100 MG capsule Take 1 capsule (100 mg total) by mouth nightly for 3 days. Max Daily Amount: 100 mg 3 capsule 09/24/2023 4 QUEtiapine (SEROquel) 25 MG tablet Take 1 tablet (25 mg total) by mouth nightly for 3 days. 3 tablet 09/24/2023 4 documented as of this encounter Progress Notes * Haven Mooney MD - 09/25/2023 9:20 AM EDT Subjective: Seen and examined at bedside. No acute events overnight. No new complain No CP, SOA, N/V, fever, chills or rash Objective: Blood pressure 106/57, pulse 78, temperature 98.1 ??F (36.7 ??C), resp. rate 18, height 1.6 m (5' 3 ), weight 48.5 kg (107 lb), SpO2 95 %. Intake/Output Summary (Last 24 hours) at 09/25/2023 0920 Last data filed at 09/25/2023 0600 Gross per 24 hour Intake 120 ml Output 1151 ml Net -1031 ml 09/23 0700 - 09/24 0659 In: 240 [P.O.:240] Out: 1151 [Urine:1150] Physical Exam: Gen: Alert, NAD HEENT: NC, AT Neck: Supple, no JVD Lungs: CTA. Non labored, symetrical chest expansion CVS: SI/S2 audible. RRR, No M/G noted Abd: soft, NT, ND, BS + Ext: + Pedal edema , no cyanosis UG DESIGNER: Alert, No focal deficit noted grossly Psy: Cooperative Labs: Recent Labs Lab(s) Units 09/25/23 0251 09/24/23 0354 09/22/23 0322 WBC K/??L 8.2 10.5* 12.4* 12.6* HGB GM/DL 7.6* 8.0* 7.3* 7.5* PLT K/CU MM 227 251 243 251 Recent Labs Lab(s) Units 09/25/23 0251 09/24/23 0354 09/22/23 0322 09/21/23 0235 NA meq/L 133* 133* 133* 132* K meq/L 4.4 4.3 4.7 4.5 CL meq/L 103 104 103 99* CO2 meq/L 26 23 27 29 BUN mg/dL 24* 22 24* 27* CREATININE mg/dL 0.66 0.65 0.65 0.63 CALCIUM mg/dL 8.5 9.2 8.7 8.7 ALBUMIN g/dL -- -- 2.5* -- A/P: 1- Hyponatremia- Asymptomatic - 119 at presentation at OSH. 121 at H.-Urine osmolarity 892, urinesodium less than 15, serum osmolarity 261. At home on HCTZ - Improving - 133 today 2- Hypertension 3- Right hip hematoma 4- Right lower extremity DVT. 5- Anemia 6- Elevated liver enzymes -improving. ?? Plan: - Fluid restriction 1.5 lit/day - lasix 20 mg po q daily Haven Mooeny MD 09/25/23 2:31 PM * Shima Salas RN - 09/25/2023 8:40 AM EDT Discharge Plan Progress Note DC to [facility] today via [facility] transport at 11am Summary faxed Care Coordination has seen this patient and completed the need for which we were consulted. We willsign off. Please enter a new consult if any further needs arise. Shima Salas RN * Dede TITO Rendon - 09/24/2023 5:32 PM EDT Hospitalist Progress Note Date of Service: 09/24/2023 PCP: Provider Not In System Chief Complaint: No chief complaint on file. Subjective I rounded with OMER Andrade.. I reviewed nursing notes and event log, MAR, foreign law consultant notes, imaging and radiology as below. Review of Systems Psychiatric/Behavioral: The patient has insomnia. Met with patient, son, [id number] at bedside. Tells me that she is looking for to going to rehab tomorrow. Onyqeput-pp-zlp tells this provider that patient did not sleep at all overnight, patient states that she also has limited appetite. I we will start Seroquel at bedtime, encouraged p.o. with patient. She is agreeable. Would not like to transition to mirtazapine from Lexapro at this time. Objective Vitals: 09/24/23 0415 09/24/23 0900 09/24/23 1303 09/24/23 1600 BP: 133/64 123/53 128/61 136/70 Pulse: 86 94 90 87 Resp: 16 16 Temp: 98.1 ??F (36.7 ??C) 98.4 ??F (36.9 ??C) 98.1 ??F (36.7 ??C) TempSrc: Oral Oral SpO2: 97% 98% 98% (!) 83% Weight: Height: Intake/Output Summary (Last 24 hours) at 09/24/2023 1732 Last data filed at 09/24/2023 1400 Gross per 24 hour Intake 240 ml Output 1601 ml Net -1361 ml Physical Exam Vitals and nursing note reviewed. Constitutional: Appearance: Normal appearance. HENT: Head: Normocephalic and atraumatic. Nose: Nose normal. Mouth/Throat: Mouth: Mucous membranes are moist. Eyes: Pupils: Pupils are equal, round, and reactive to light. Cardiovascular: Rate and Rhythm: Normal rate and regular rhythm. Pulses: Normal pulses. Heart sounds: Normal heart sounds. No murmur heard. Pulmonary: Effort: Pulmonary effort is normal. No respiratory distress. Comments: Dim in bases Abdominal: General: Abdomen is flat. Bowel sounds are normal. Palpations: Abdomen is soft. Musculoskeletal: Comments: Multi-Podus boots in place JAMEY hose in place Skin: General: Skin is warm and dry. Capillary Refill: Capillary refill takes less than 2 seconds. Comments: Ecchymosis noted over chest wall, bilateral thighs Neurological: General: No focal deficit present. Mental Status: She is alert. She is disoriented. Comments: Confabulating Psychiatric: Mood and Affect: Mood normal. Behavior: Behavior normal. Scheduled Meds: ??? amLODIPine 2.5 mg Oral Daily 2.5 mg at 09/24/23 0900 ??? apixaban 10 mg Oral BID 10 mg at 09/24/23900 ??? aspirin 81 mg Oral Daily 81 mg at 09/24/23900 ??? busPIRone 5 mg Oral BID 5 mg at 09/24/23899 ??? escitalopram oxalate 10 mg Oral QAM 10 mg at 09/24/23 0541 ??? furosemide 20 mg Oral Daily 20 mg at 09/24/23 1335 ??? gabapentin 100 mg Oral Every Night 100 mg at 09/23/232121 ??? melatonin 9 mg Oral Every Night 9 mg at 09/23/232121 ??? multivitamin 1 tablet Oral Daily 1 tablet at 09/24/23 0900 ??? pantoprazole 40 mg Oral Daily 40 mg at 09/24/23 0901 ??? QUEtiapine 12.5 mg Oral Every Night ??? sodium chloride 1 g Oral Once ??? sodium chloride 1 g Oral Once Continuous Infusions: ??? sodium chloride 0.9% (NS) PRN Meds:. ??? acetaminophen ??? cloNIDine HCL ??? cyclobenzaprine ??? docusate sodium ??? hydrALAZINE ??? ipratropium-albuteroL ??? ondansetron Or ??? ondansetron PF ??? QUEtiapine ??? sodium chloride 0.9% (NS) Assessment and Plan Brief Hospital Course: No notes on file Acute metabolic encephalopathy, suspect delirium versus discontinuation syndrome as antidepressant has been held Restart SSRI CT head negative Schedule melatonin Sleep-wake precautions Hyponatremia, improved. multifactorial with low serum osmolality, markedly elevated urine osmolality and low urine sodium. Resolved. HCTZ, PETROS inhibitor, SSRI held on admission Restart SSRI 09/21 BMP in a.m. Complicated UTI ID consult, greatly appreciate assistance recommendations Completed Doxy/ceftriaxone 09/19 Continue monitor off antibiotics MDD/anxiety Restart Lexapro, BuSpar ?? HTN Discontinue PETROS/HCTZ, do not restart at discharge Amlodipine Start furosemide ?? Mechanical ground-level fall Bilateral lower extremity weakness Fall precautions PT OT consult Neurology consult, greatly appreciate assistance recommendations Massive hematoma from fall requiring PRBC transfusion, subsequent rhabdo Ortho consult, signed off Hemoglobin has been stable Acute pain secondary to bruising from falls Stop narcotics Decrease gabapentin 100 mg nightly only Tylenol first-line Right lower extremity VTE, provoked Apixaban x 3 months then reimage PPI daily while on anticoagulation Insomnia Start Seroquel at bedtime #Diet: Regular diet, 1200 mL fluid restriction #VTE Ppx: Apixaban #GI Ppx (if indicated): Pantoprazole #Code Status: DNR #Medical decision maker: Family #Dispo: To rehab 09/24 #MDM for 09/24/23: moderate Dede Rendon APRN Hospitalist [facility], [facility] Pager: Attending Dr. Eldon Mann Voice paraprofessional education assistant technology ([employer]) is used for dictation of this note and sound-alike words might be erroneously placed despite reviewing the note for accuracy. Errors in dictation mayreflect use of voice recognition software and not all errors in paraprofessional education assistant may have been detected prior to signing. Discharge Planning: Barriers to discharge: transportation Expected (tentative) discharge 09/24 Expected discharge disposition (home, SNF/Rehab, etc): [facility] Additional discharge needs or delays: transportation DEDE RENDON APRN Cosigned by Eldon Mann MD at 09/29/2023 5:35 PM EDT * Meagan Rodriguez RN - 09/24/2023 3:22 PM EDT Discharge Plan Progress Note Transport is scheduled for tomorrow at 1100 via [facility]. Nurse and son is aware. Cm will need to fax updated discharge summary tomorrow. Cm updated Dede Rendon APRN. Meds to Bed to be delivered today at 1630. Meagan Rodriguez RN * Sim Cole MD - 09/24/2023 2:45 PM EDT Images from the original note were not included. [facility] INFECTIOUS DISEASE PROGRESS NOTE Birgit Estrada 1950 [id number] Date of consult: 09/13/2023 Admit date: 09/12/2023 Requesting Provider: @[email or web address]@ Evaluating physician: Sim Cole MD Reason for Consultation: Acute bacterial cystitis Chief Complaint: Above Subjective History of present illness: Patient is a 73 y.o. Yr old female who is a poor historian with a history of essential hypertension, DJD, fell around 09/05/2023, sustaining increasing right hip pain, and was evaluated at an outside hospital and shown to have severe hyponatremia which was not improving. Patient also had a chest x-ray with possible opacity, with a normal CT scan negative for malignancy. CT scan of the head was unremarkable. Patient was transferred and admitted to [facility] on 09/12/2023. Urinalysis had significant pyuria at 11-20 WBCs but minimal symptoms. Right hip had noted hematoma likely relatedto her previous fall. Chest x-ray at [facility] was unremarkable. The patient was placedon piperacillin/tazobactam and doxycycline on 09/11. Duplex ultrasound was significant for right lower leg DVT in the peroneal and soleus veins. I was consulted on 09/13/2023 for further evaluation and treatment. No reported history of ill contacts, zoonotic exposures, TB, HIV, significant travel, immunocompromised state. 09/14/23 history reviewed. Difficulty with moving her right foot. Slightly confused. No high fever. Tolerating antibiotics. 09/15/23 history reviewed. Feels better. Slightly less confused. Tolerating antibiotics. No high fever. 09/16/23 hx rev. No high fever. Keena abx. No pain. Urine and blood cx neg. 09/17/2023 history reviewed. No high fever. Slow improvement. 09/20/2023 history reviewed. No high fevers or chills. Feels better. 09/21/23 history reviewed. The patient was getting ready to transfer to skilled facility. Became acutely more confused and noncommunicative. No high fever. 09/22/23 history reviewed. Less confused. No high fever. Off antibiotics since 09/21. 09/23/2023 history reviewed. No high fever. Occasional loose stool. Off antibiotics since 09/21. 09/24/2023 history reviewed. No high fever. Off antibiotics since 09/21. Past Medical History: Diagnosis Date ??? Arthritis ??? Hypertension Past Surgical History: Procedure Laterality Date ??? CHOLECYSTECTOMY ??? TONSILLECTOMY ??? TUBAL LIGATION Pediatric History Patient Parents ??? Not on file Other Topics Concern ??? Not on file Social History Narrative ??? Not on file Negative for cigarettes, alcohol, or drug use family history is not on file. Reviewed and unremarkable No Known Allergies Immunization History Administered Date(s) Administered ??? COVID-19 2022- VACCINE MODERNA (SPIKEVAX) 12 YRS + (HGI103) 05/18/2023 ? ? COVID-19 VACCINE MRNA (MODERNA/BIVALENT)(DARK BLUE CAP W/DOAN)([id number] & [id number]) 03/10/2022 ??? Covid-19 Vaccine MRNA (PF) 18yr+ (Moderna)([id number]) 07/18/2020, 08/15/2020, 02/27/2021, 11/04/2021 Medication: @Scheduled Meds: ??? amLODIPine 2.5 mg Oral Daily 2.5 mg at 09/24/23 0900 ??? apixaban 10 mg Oral BID 10 mg at 09/24/23 0901 ??? aspirin 81 mg Oral Daily 81 mg at 09/24/23 0901 ??? busPIRone 5 mg Oral BID 5 mg at 09/24/23 0900 ??? escitalopram oxalate 10 mg Oral QAM 10 mg at 09/24/23 0541 ??? furosemide 20 mg Oral Daily 20 mg at 09/24/23 1335 ??? gabapentin 100 mg Oral Every Night 100 mg at 09/23/232121 ??? melatonin 9 mg Oral Every Night 9 mg at 09/23/232121 ??? multivitamin 1 tablet Oral Daily 1 tablet at 09/24/23 0900 ??? pantoprazole 40 mg Oral Daily 40 mg at 09/24/23 0901 ??? sodium chloride 1 g Oral Once ??? sodium chloride 1 g Oral Once Continuous Infusions: ??? sodium chloride 0.9% (NS) PRN Meds:. ??? acetaminophen ??? cloNIDine HCL ??? cyclobenzaprine ??? docusate sodium ??? hydrALAZINE ??? ipratropium-albuteroL ??? ondansetron Or ??? ondansetron PF ??? sodium chloride 0.9% (NS) Please refer to the medical record for a full medication list Review of Systems: Constitutional-- No Fever, chills or sweats. Appetite fair, and no malaise. Some fatigue. HEENT-- No new vision, hearing or throat complaints. No epistaxis or oral sores. Denies odynophagiaor dysphagia. No odynophagia or dysphagia. No headache, photophobia or neck stiffness. CV-- No chest pain, palpitation or syncope Resp-- No SOB/cough/Hemoptysis GI- No nausea, vomiting, or diarrhea. No hematochezia, melena, or hematemesis. Denies jaundice or chronic liver disease. -- No dysuria, hematuria, or flank pain. Denies hesitancy, urgency. Occasional frequency. Lymph- no swollen lymph nodes in neck/axilla or groin. Heme- No active bruising or bleeding; no Hx of DVT or PE. MS-- no swelling or pain in the bones or joints of arms/legs, except right hip as per HPI. No new back pain. Neuro-- No acute focal weakness or numbness in the arms or legs. No seizures. Except right foot with some foot drop. Skin--No rashes or lesions. No nodules. Physical Exam: Vital Signs Temp: [98.1 ??F (36.7 ??C)-98.8 ??F (37.1 ??C)] 98.1 ??F (36.7 ??C) Pulse: [84-96] 90 Resp: [16] 16 BP: (123-146)/(53-80) 128/61 Blood pressure 128/61, pulse 90, temperature 98.1 ??F (36.7 ??C), temperature source Oral, resp. rate 16, height 1.6 m (5' 3 ), weight 48.5 kg (107 lb), SpO2 98 %. GENERAL: Alert, in mild distress. Appears older than stated age. Resting in bed. HEENT: Normocephalic, atraumatic. Oropharynx without thrush. Dentition in fair repair. No cervical adenopathy. No neck masses. Ears externally normal, Nose externally normal. Trachea midline. EYES: No conjunctival injection. No icterus. EOM full. LYMPHATICS: No lymphadenopathy of the neck or axillary or inguinal regions. HEART: No murmur, gallop, or pericardial friction rub. Reg rate rhythm. LUNGS: Clear to auscultation and percussion. No respiratory distress, no use of accessory muscles. No rales or rhonchi. No wheezes. ABDOMEN: Soft, nontender, nondistended. No appreciable HSM. Bowel sounds normal. SKIN: Warm and dry without cutaneous eruptions. No nodules. Right hip hematoma noted. No surrounding crepitus or bullae. PSYCHIATRIC: Mental status with less confusion. EXT: No cellulitic change. Normal ROM. NEURO: Oriented to name, right foot drop Results Review: I reviewed the patient's new clinical results. Recent Labs Lab(s) Units 09/24/23 0354 09/22/23 0322 09/21/23 0234 WBC K/??L 10.5* 12.4* 12.6* 13.1* HGB GM/DL 8.0* 7.3* 7.5* 7.9* HCT % 23.8* 22.0* 22.8* 23.5* PLT K/CU MM 251 243 251 272 Recent Labs Lab(s) Units 09/24/23 0354 NA meq/L 133* K meq/L 4.3 CL meq/L 104 CO2 meq/L 23 BUN mg/dL 22 CREATININE mg/dL 0.65 GLUCOSE mg/dL 108* CALCIUM mg/dL 9.2 Recent Labs Lab(s) Units 09/22/23 0322 ALKPHOS U/L 43 BILITOT mg/dL 1.0 ALT U/L 81* AST U/L 32 No results for input(s): SEDRATE in the last 168 hours. No results for input(s): CRP in the last 168 hours. No results for input(s): VANCOTROUGH , VANCORANDOM in the last 168 hours. No results for input(s): LACTATE in the last 168 hours. Estimated Creatinine Clearance: 38.4 mL/min (by C-G formula based on SCr of 0.65 mg/dL). @LABRCNTIP (cpk,ast,alt,alkaline phosphatase)@ Microbiology: Microbiology Results (last 7 days) Procedure Component Value Units Date/Time Blood Culture [[id number]] Collected: 09/19/23 1137 Order Status: Completed Specimen: Blood Updated: 09/24/23 1344 Result No growth in 5 days Blood Culture Arm, Right Lower [[id number]] Collected: 09/19/23 1146 Order Status: Completed Specimen: Blood from Arm, Right Lower Updated: 09/24/23 1344 Result No growth in 5 days Blood Culture Antecubital, Right [[id number]] Collected: 09/12/23 1806 Order Status: Completed Specimen: Blood from Antecubital, Right Updated: 09/18/23 0101 Result No growth in 5 days Blood Culture Forearm, Left [[id number]] Collected: 09/12/23 181 Order Status: Completed Specimen: Blood from Forearm, Left Updated: 09/18/23 0101 Result No growth in 5 days Radiology: Radiology Results (last 3 days) Procedure Component Value Units Date/Time CT brain without IV contrast [[id number]] Collected: 09/21/231821 Order Status: Completed Updated: 09/21/231824 Narrative: CT HEAD WITHOUT IV CONTRAST 09/21/2023 6:00 AM HISTORY: Mental status change, unknown cause TECHNIQUE: Multiple axial CT images were performed from the foramen magnum to the vertex. Coronal reformatted images were reconstructed from axial data set. Individualized dose reduction techniques using automated exposure control or adjustment of mA and/or kV according to the patient size were employed. COMPARISON: CT 09/13/2023, MRI 09/16/2023 FINDINGS: No acute intracranial hemorrhage or large acute cortical infarct. Chronic small vessel ischemic white matter changes and generalized cerebral volume loss are present. Ventricles are mildly prominent. No midline shift. The basal cisterns are patent. No skull fracture. The visualized paranasal sinuses and mastoid air cells are clear. Impression: No acute intracranial hemorrhage or large acute cortical infarct. Images personally reviewed, interpreted and dictated by Sarwat Santos M.D. . IMPRESSION: 1. Pyuria with possible acute bacterial cystitis. Urine culture from 09/11 negative. Partially treated. Clinically resolved. 2. Right hip hematoma after fall 09/05/2023. X-ray without fracture on 09/15. Right psoas muscle with intramuscular hematoma from CT abdomen and pelvis 09/13. 3. Right sternocleidomastoid muscle loculated signal, potential hematoma seen on MRI 09/16. 4. Reported chest x-ray infiltrate resolved. Could have had atelectasis, and is at risk for pulmonary embolus given demonstration of new DVT. CT scan of the abdomen and pelvis with basilar infiltrate. Resolved clinically. 5. DVT right lower leg soleus and peroneal veins positive duplex 09/13/2023. 6. Leukocytosis, neutrophilic related to above issues. Minor and improved. Previously related to cystitis versus other including noninfectious reasons with her hematomas from fall. Blood cultures x 2from 09/11 negative. 7. Hyponatremia related to above issues, medications, possible SIADH, versus other. 133. 8. Anemia, related to above issues and right hip hematoma. Slightly worse. 9. Elevated transaminase with ALT 213, ongoing, AST 308, ongoing, total bilirubin 0.9, alkaline phosphatase 45. Reportedly CT scan abdomen and pelvis at outside hospital without significant pathology. May need to repeat ultrasound versus other. Likely also related to muscle injury. 10. Rhabdo, CK 2217, ongoing. Related to her recent fall and trauma to leg. 11. Encephalopathy, toxic and metabolic. MRI brain without intracranial abnormalities from 09/16. Worse on 09/20. Likely metabolic related to medications. Improved on 09/21 with decrease of gabapentin dose. 12. Loose stool, on stool softener. Resolved. PLAN: 1. Diagnostically, continue to follow patient's physical exam, CBC, CMP, CRP. 2. Therapeutically, stopped doxycycline and ceftriaxone on 09/19 and reassess. Cultures were negativeon this admission. Continue to follow off antibiotics. This provided coverage for possible pneumonia or urinary tract infection. The patient is at risk for developing infections of her various hematomas. 3. Supportive care. Room air on 09/13/2023. Orthopedics, nephrology, neurology evaluating. I discussed the patient's findings and my recommendations with the patient and nursing. Thank you for asking me to see Birgit Estrada. Our group would be pleased to follow this patient over the course of their hospitalization and assist with outpatient antimicrobial therapy, as indicated. Further recommendations depend on the results of the cultures and clinical course. Increased riskfor adverse drug reactions, complications of IV access, need for surgery, readmission. I prev discussed with the patient's son, and the patient's daughter. Discussed with Dr. Mccarty 09/20. I will sign off, call sooner if needed. Sim Cole MD 09/24/2023 * Meagan Rodriguez RN - 09/24/2023 1:41 PM EDT Discharge Plan Progress Note Medication reconciliation is done. Discharge summary is faxed. [employer] pushed time to 1999. Cm called Carlito with [facility]. She is checking to see if can take that late. Aw call back. Per [place], unable to take that late. Will have to reschedule. Cm notified JAYSHREE Becerra. Cm updated nurse Brook Rendon APRN. Meagan Rodriguez RN * KACI Chavez/Pb - 09/24/2023 1:38 PM EDT Images from the original note were not included. Inpatient Occupational Therapy Treatment Note Patient Name: Birgit Estrada Date of : 1950 Date of Treatment: 09/24/23 Start Time: 913 Stop Time: 951 Session Duration: 38 minutes This patient is a 73 y.o. female admitted on 09/12/2023 with Weakness [R53.1]. Past Medical History: Diagnosis Date ??? Arthritis ??? Hypertension Past Surgical History: Procedure Laterality Date ??? CHOLECYSTECTOMY ??? TONSILLECTOMY ??? TUBAL LIGATION General Visit type: Treatment Approved by: Nurse Andrade Patient disposition upon entry: Patient verified by name, Patient verified by date of , Supinein bed, Call light/pull cord in reach Precautions Weightbearing status: No restrictions Precautions: Spinal precautions Isolation precautions: Standard Subjective Subjective: Pt agreeable. Pt stated she was looking forward to seeing her and presented w/ appropriate humor throughout session. Pain No-patient reports 6/10 pain in R foot and lower back. Cognition Cognition: Memory: Decreased recall of recent events Orientation level: Disoriented to place, Disoriented to time Objective Activity Tolerance Patient limited with activity/intervention due to pain, fatigue, deconditioning, weakness and cognitive impairment Treatment Pt supine upon arrival w/ BLE foot drop supports in place. Pt required Max A x2 to complete both supine to EOB and [id number] transfers. Pt given warm shower cap and hair brush to complete groomingtasks while seated EOB. Pt required Mod A to brush hair and massage scalp w/ shower cap due to fatigue and decreased endurance. Pt stood with max A x2, gait belt, and walker. Pt required max verbal cues throughout session. Pt returned to supine after all needs met and CL was placed within reach. Assessment Assessment Pt demo'd impaired functional endurance (less than ~25 seconds before needing rest break while sitting EOB). Pt's weakness, poor balance, low activity tolerance, and bed mobility deficits hinder occupational performance levels. Pt would benefit from skilled OT services to address functional deficits to achieve max function. Plan Recommendations Discharge recommendations: Patient would benefit from 1-2 hours of multidisciplinary therapy per day upon discharge from acute care setting to assist with returning to prior level of functioning. DME recommendations: Patient would benefit from cane, quad, leg kettle room helper, sock aid at discharge. Treatment Plan: Continue OT POC OT Frequency/Duration: 3x/week for 14 days Goals Grooming:??grooming??with modified independence Toileting:??toileting?with supervision. Bed mobility:??bed mobility??with modified independence. Functional transfers:??ambulatory transfer??with supervision. ?? Target Date:?09/27/2023 ?? Goals were discussed with patient and family Progress towards goals: progressing Goals were discussed with patient Progress towards goals: progressing Education Patient educated on safety, use of call light, role of occupational therapy, ADLs, functional mobility, breathing techniques , energy conservation strategies and following, they were able to verbalize understanding. Patient Disposition Upon Leaving Patient Disposition: Patient verified by name, Patient verified by date of , Supine in bed, Call light/pull cord in reach, Feet elevated, Up in room ad precious, Yellow non slip socks donned, Yellow fall risk bracelet donned If this patient discharges prior to next therapy session, this note serves as the patient's discharge summary. Electronically signed by Tahmina Newton - 09/24/2023 - 1:39 PM EDT OTR/L has reviewed documentation and agrees. Dulce Mccabe OTR/L (Occupational therapy student assisted with the treatment of this patient under the direct supervision of the occupational therapist. Student occupational therapist assisted the occupational therapist with the treatment of patients throughout the day from [id number].) * Haven Mooney MD - 09/24/2023 12:26 PM EDT Subjective: Seen and examined at bedside. No acute events overnight. No new complain No CP, SOA, N/V, fever, chills or rash Objective: Blood pressure 123/53, pulse 94, temperature 98.4 ??F (36.9 ??C), temperature source Oral, resp. rate 16, height 1.6 m (5' 3 ), weight 48.5 kg (107 lb), SpO2 98 %. Intake/Output Summary (Last 24 hours) at 09/24/2023 1226 Last data filed at 09/24/2023 0400 Gross per 24 hour Intake -- Output 1600 ml Net -1600 ml 09/22 0700 - 09/23 0659 In: 240 [P.O.:240] Out: 1600 [Urine:1600] Physical Exam: Gen: Alert, NAD HEENT: NC, AT Neck: Supple, no JVD Lungs: CTA. Non labored, symetrical chest expansion CVS: SI/S2 audible. RRR, No M/G noted Abd: soft, NT, ND, BS + Ext: + Pedal edema , no cyanosis UG DESIGNER: Alert, No focal deficit noted grossly Psy: Cooperative Labs: Recent Labs Lab(s) Units 09/24/23 0354 09/22/23 0322 09/21/23 0234 WBC K/??L 10.5* 12.4* 12.6* 13.1* HGB GM/DL 8.0* 7.3* 7.5* 7.9* PLT K/CU MM 251 243 251 272 Recent Labs Lab(s) Units 09/24/23 0354 09/22/23 0322 09/21/23 0235 09/20/23 0229 NA meq/L 133* 133* 132* 130* K meq/L 4.3 4.7 4.5 4.4 CL meq/L 104 103 99* 98* CO2 meq/L 23 27 29 27 BUN mg/dL 22 24* 27* 26* CREATININE mg/dL 0.65 0.65 0.63 0.76 CALCIUM mg/dL 9.2 8.7 8.7 8.5 ALBUMIN g/dL -- 2.5* -- -- A/P: 1- Hyponatremia- Asymptomatic - 119 at presentation at OSH. 121 at [facility].-Urine osmolarity 892, urinesodium less than 15, serum osmolarity 261. At home on HCTZ - Improving - 133 today 2- Hypertension 3- Right hip hematoma 4- Right lower extremity DVT. 5- Anemia 6- Elevated liver enzymes -improving. ?? Plan: - Fluid restriction 1.5 lit/day - No HCTZ at discharge - lasix 20 mg po q daily Haven Mooney MD 09/24/23 2:31 PM * Oskar Marin PT - 09/24/2023 12:03 PM EDT Inpatient Physical Therapy Attempt to Treat Patient Name: Birgit Estrada Birthday: 1950 Date of Attempt: 09/24/2023 Pt with DC orders and summary in chart. Will check back if time permits later this treatment date and pt has not been transported. Electronically signed by Oskar Marin PT - 09/24/2023 - 12:03 PM EDT * Meagan Rodriguez RN - 09/24/2023 10:15 AM EDT Discharge Plan Progress Note Discharge order is in. Pt is going to [place] today. Transport is at 1630 via [employer]. CM notified son- Berna, yesterday, of discharge for today. Cm notified pharmacy and nurse. Meds to bed willneed to deliver meds prior to transport. CM notified Meds to Bed. Waiting on medication reconciliation. CM to fax discharge summary when ready. Meagan Rodriguez RN * Dede Rendon, APARTMENT COMMUNITY ASSISTANT MANAGER - 09/23/2023 6:09 PM EDT Hospitalist Progress Note Date of Service: 09/23/2023 PCP: Provider Not In System Chief Complaint: No chief complaint on file. Subjective I rounded with OMER Moon. I reviewed nursing notes and event log, MAR, foreign law consultant notes, imaging and radiology as below. Review of Systems Gastrointestinal: Positive for diarrhea. Psychiatric/Behavioral: The patient does not have insomnia. Objective Vitals: 09/23/23 0814 09/23/23 0916 09/23/23 1222 09/23/23 1652 BP: 132/56 (!) 147/60 (!) 143/61 Pulse: 90 95 Resp: Temp: 98.1 ??F (36.7 ??C) TempSrc: Oral SpO2: 93% 95% 95% Weight: Height: Intake/Output Summary (Last 24 hours) at 09/23/2023 1810 Last data filed at 09/23/2023 0800 Gross per 24 hour Intake 240 ml Output 1300 ml Net -1060 ml Physical Exam Vitals and nursing note reviewed. Constitutional: Appearance: Normal appearance. HENT: Head: Normocephalic and atraumatic. Nose: Nose normal. Mouth/Throat: Mouth: Mucous membranes are moist. Eyes: Pupils: Pupils are equal, round, and reactive to light. Cardiovascular: Rate and Rhythm: Normal rate and regular rhythm. Pulses: Normal pulses. Heart sounds: Normal heart sounds. No murmur heard. Pulmonary: Effort: Pulmonary effort is normal. No respiratory distress. Comments: Dim in bases Abdominal: General: Abdomen is flat. Bowel sounds are normal. Palpations: Abdomen is soft. Musculoskeletal: Comments: Multi-Podus boots in place JAMEY hose in place Skin: General: Skin is warm and dry. Capillary Refill: Capillary refill takes less than 2 seconds. Comments: Ecchymosis noted over chest wall, bilateral thighs Neurological: General: No focal deficit present. Mental Status: She is alert. She is disoriented. Comments: Confabulating Psychiatric: Mood and Affect: Mood normal. Behavior: Behavior normal. Scheduled Meds: ??? amLODIPine 2.5 mg Oral Daily 2.5 mg at 09/23/23813 ??? apixaban 10 mg Oral BID 10 mg at 09/23/23824 ??? aspirin 81 mg Oral Daily 81 mg at 09/23/23813 ??? busPIRone 5 mg Oral BID 5 mg at 09/23/23813 ??? escitalopram oxalate 10 mg Oral QAM 10 mg at 09/23/23612 ??? gabapentin 100 mg Oral Every Night 100 mg at 09/22/232153 ??? melatonin 9 mg Oral Every Night 9 mg at 09/22/232153 ??? multivitamin 1 tablet Oral Daily 1 tablet at 09/23/23813 ??? pantoprazole 40 mg Oral Daily 40 mg at 09/23/23813 ??? sodium chloride 1 g Oral Once ??? sodium chloride 1 g Oral Once Continuous Infusions: ??? sodium chloride 0.9% (NS) PRN Meds:. ??? acetaminophen ??? cloNIDine HCL ??? cyclobenzaprine ??? docusate sodium ??? hydrALAZINE ??? ipratropium-albuteroL ??? ondansetron Or ??? ondansetron PF ??? sodium chloride 0.9% (NS) Assessment and Plan Brief Hospital Course: No notes on file Acute metabolic encephalopathy, suspect delirium versus discontinuation syndrome as antidepressant has been held Restart SSRI CT head negative Schedule melatonin Sleep-wake precautions Hyponatremia, improved. multifactorial with low serum osmolality, markedly elevated urine osmolality and low urine sodium. Resolved. HCTZ, PETROS inhibitor, SSRI held on admission Restart SSRI 09/21 BMP in a.m. Complicated UTI ID consult, greatly appreciate assistance recommendations Completed Doxy/ceftriaxone 09/19 Continue monitor off antibiotics MDD/anxiety Restart Lexapro, BuSpar ?? HTN Discontinue PETROS, do not restart at discharge amlodipine ?? Mechanical ground-level fall Bilateral lower extremity weakness Fall precautions PT OT consult Neurology consult, greatly appreciate assistance recommendations Massive hematoma from fall requiring PRBC transfusion, subsequent rhabdo Ortho consult, signed off Hemoglobin has been stable Acute pain secondary to bruising from falls Stop narcotics Decrease gabapentin 100 mg nightly only Tylenol first-line Right lower extremity VTE, provoked Apixaban x 3 months then reimage PPI daily while on anticoagulation #Diet: Regular diet, 1200 mL fluid restriction #VTE Ppx: Apixaban #GI Ppx (if indicated): Pantoprazole #Code Status: DNR #Medical decision maker: Family #Dispo: Discharge was canceled due to increased confusion, suspect delirium. Patient is much bettertoday, anticholinergics, narcotics have been discontinued/dose decreased. Home meds have been restarted. Medically ready for DC #MDM for 09/23/23: moderate Dede Rendon APRN Hospitalist [facility], [facility] Pager: Attending Dr. Eldon Mann Voice paraprofessional education assistant technology ([employer]) is used for dictation of this note and sound-alike words might be erroneously placed despite reviewing the note for accuracy. Errors in dictation mayreflect use of voice recognition software and not all errors in paraprofessional education assistant may have been detected prior to signing. Discharge Planning: Barriers to discharge: transportation Expected (tentative) discharge 09/23 Expected discharge disposition (home, SNF/Rehab, etc): [facility] Additional discharge needs or delays: transportation DEDE RENDON APRN Cosigned by Eldon Mann MD at 09/29/2023 5:35 PM EDT * Nathaniel Wakefield MD - 09/23/2023 5:42 PM EDT Subjective Since I last saw the patient on September 20, the following has happened: 1) patient tells me that one of her big problems today is pain in her right hip. In fact the pain kept her from wanting to participate in physical therapy today. Current dose of gabapentin is 100 mg at night. As needed morphine has been stopped at her last dose of as needed morphine was on September 17. Her as needed oxycodone has been stopped and her last dose of as needed oxycodone was on September 18. 2) patient tells me her legs may be a little bit stronger today but is stated above the patient didnot work with physical therapy today because of pain in her right hip. 3) the swelling in her legs has not returned. She still has JAMEY hose on both lower extremities and Multi-Podus boots. 4) On September 12, the attending Dr. Mccarty?ordered a venous ultrasound of her lower extremities (I assume to try to find a source of pain and swelling in her lower extremities). ?? This study done on September 12 did show a DVT in the right peroneal vein and soleal vein that appeared acute. ?? When Dr. Mccarty??first found out about the DVT in the right lower extremity, he initially considered ordering an IV heparin drip but decided against this given the patient's extensive ecchymoses in her proximal legs. ?? On September 12, Dr. Mccarty?? did consult the vascular surgery service given the DVT and the concern for potential risk of anticoagulation. ?? Dr. Cadet of the vascular surgery service on September 12 however felt that the potential benefits of anticoagulation given the right lower extremity outweighed the risk of worsening ecchymoses and therefore the vascular surgery service started the patient on therapeutic Lovenox on September 12 at 50 mg twice a day for which she was still receiving until September 20. ?? On September 15??, I did speak to one of the physician extenders on the vascular surgery service who tells me that their service would be happy to place??an IVC filter if a clinical decision was made that the potential risk of anticoagulation outweighed??the benefit. 5) On September 19 , I had a discussion with the attending, Dr. Mccarty to discuss the risk and benefits of continuing anticoagulation versus stopping anticoagulation and having an SCD filter placed. ?? Dr. Mccarty told me he felt that the potential benefits of anticoagulation outweighed the risk and therefore I started the patient on Eliquis 10 mg bid on September 20 and stopped Lovenox. I think this is a reasonable decision. ?? On September??5??her hemoglobin had dropped to 6.9 and she received a transfusion. ?? On September??6??her hemoglobin was 8.1 with a hematocrit of 23.3. ?? On September??7??her hemoglobin was 8.2 with a hematocrit of 24.8. ?? On September 19,?her hemoglobin is??7.7 with a hematocrit of 22.5. ?? On September 20 , her hemoglobin was 7.9 with a hematocrit of 23.5. ?? On September 21, her hemoglobin was 7.3 with a hematocrit of 22 A CBC was not checked today. 6) She has not received Lasix for the hyponatremia and swelling since September 19. ?? The patient did receive 1 dose of sodium chloride 1 g disintegrating tablet on September 19. ?? Sodium level was checked on September 21 and it had risen to 133. A sodium level was not checked today. 7) when I last saw the patient on September 20 I recommended sending off iron studies given the frequentblood draws she has had and her persistent anemia. Blood work showed a slightly low iron level of 43 and a low total iron binding capacity of 220. The patient has now been started on a multivitamin. Current Facility-Administered Medications: ??? acetaminophen (TYLENOL) tablet 650 mg, 650 mg, Oral, Q6H PRN ??? amLODIPine (NORVASC) tablet 2.5 mg, 2.5 mg, Oral, Daily ??? apixaban (ELIQUIS) tablet 10 mg, 10 mg, Oral, BID ??? aspirin chewable tablet 81 mg, 81 mg, Oral, Daily ??? busPIRone (BUSPAR) tablet 5 mg, 5 mg, Oral, BID ??? cloNIDine HCL (CATAPRES) tablet 0.1 mg, 0.1 mg, Oral, Q8H PRN ??? cyclobenzaprine (FLEXERIL) tablet 10 mg, 10 mg, Oral, TID PRN ??? docusate sodium (COLACE) capsule 100 mg, 100 mg, Oral, BID PRN ??? escitalopram oxalate (LEXAPRO) tablet 10 mg, 10 mg, Oral, QAM ??? gabapentin (NEURONTIN) capsule 100 mg, 100 mg, Oral, Every Night ??? hydrALAZINE (APRESOLINE) injection 10 mg, 10 mg, Intravenous, Q4H PRN ??? ipratropium-albuteroL (DUO-NEB) 0.5-2.5 (3) mg/3 mL nebulizer solution 3 mL, 3 mL, Nebulization, Q4H PRN ??? melatonin tablet 9 mg, 9 mg, Oral, Every Night ??? multivitamin (THERAGRAN) tablet 1 tablet, 1 tablet, Oral, Daily ??? ondansetron (ZOFRAN-ODT) disintegrating tablet 4 mg, 4 mg, Oral, Q8H PRN OR ondansetron PF (ZOFRAN) injection 4 mg, 4 mg, Intravenous, Q8H PRN ??? pantoprazole (PROTONIX) DR tablet 40 mg, 40 mg, Oral, Daily ??? Insert Peripheral IV, , , Once AND Saline Lock IV, , , Once AND sodium chloride 0.9% (NS) flush 10 mL, 10 mL, Intravenous, PRN ??? [COMPLETED] Prepare RBC: 1 Units, Leukoreduced, , , Once AND Transfuse RBC: 1 Units, Leukoreduced, , Intravenous, Transfusion AND sodium chloride 0.9% (NS) infusion, 250 mL, Intravenous, Once ??? sodium chloride disintegrating tablet 1 g, 1 g, Oral, Once ??? sodium chloride disintegrating tablet 1 g, 1 g, Oral, Once Review of Systems Psychiatric-the patient is been started back on her home Lexapro. GI-she says she has had some diarrhea today. Objective Last Recorded Vitals Blood pressure (!) 143/61, pulse 95, temperature 98.1 ??F (36.7 ??C), temperature source Oral, resp. rate 16, height 1.6 m (5' 3 ), weight 48.5 kg (107 lb), SpO2 95 %. Physical Exam Facies are symmetric. Her She has 2-3/5 strength in both hip flexors and knee flexors. Labs: No results found for this visit on 09/12/23 (from the past 24 hour(s)). CT brain without IV contrast Narrative: CT HEAD WITHOUT IV CONTRAST 09/21/2023 6:00 AM HISTORY: Mental status change, unknown cause TECHNIQUE: Multiple axial CT images were performed from the foramen magnum to the vertex. Coronal reformatted images were reconstructed from axial data set. Individualized dose reduction techniques using automated exposure control or adjustment of mA and/or kV according to the patient size were employed. COMPARISON: CT 09/13/2023, MRI 09/16/2023 FINDINGS: No acute intracranial hemorrhage or large acute cortical infarct. Chronic small vessel ischemic white matter changes and generalized cerebral volume loss are present. Ventricles are mildly prominent. No midline shift. The basal cisterns are patent. No skull fracture. The visualized paranasal sinuses and mastoid air cells are clear. Impression: No acute intracranial hemorrhage or large acute cortical infarct. Images personally reviewed, interpreted and dictated by Sarwat Santos M.D. Assessment Birgit Estrada is a 73-year-old female with hypertension and depression who was transferred to our hospital on September 11 from the inpatient service at [facility] for further evaluation of hyponatremia after a September 04 fall at home . In talking with the son, the patient fell down on September 04 at home while trying to help her (who has Lewy body disease) change clothes. A couple hours after falling on September 04, she complained of hip pain and was taken to [facility] ER and released home after several x-rays were done. According to the records at [facility] during that emergency room visit her sodium level was 130. After being released from [facility] emergency room on September 05, the son has told me that the patient continued to have severe hip pain and was having nausea and anorexia at home from September 04through September 06. Due to the continued hip pain and the nausea, the son has told me the patient was taken back to [facility] emergency room apparently on the late evening of September 07. According to the son, the patient walked into [facility] emergency room on September 07 and according to the records was found to have a sodium level of 122 at that time. She was thus admitted to [facility] around the late night of September 07 at the skating rink ice maker of September 08. According to the son for the first few days at [facility] the patient was walking with a walker but then he noticed that the patient was staying in bed on September 10 and the patient has been complaining of severe hip pain and leg weakness since that time. According to the records her sodium at [facility] was 122 on September 08, 120 on September 09 and 119 on September 11. According to the records at [facility], her medications prior to admission were BuSpar 20 mgtwice a day, result 20 mg a day, benazepril 40 mg twice a day, multivitamin once a day, amlodipine 2.5 mg a day, hydrochlorothiazide 25 mg a day, and escitalopram 5 mg a day. As stated above she was transferred to our hospital on September 11 largely for persistent hyponatremiaand as written above in my note the patient's sodium level on presentation here on September 11 was only 121. Since being transferred here on September 11 , there have been several medical issues that are being worked on at once. The patient's hyponatremia has been a persistent issue. From September 13 until September 17 her serum sodium was checked by the lab every 4 hours. With the use of IV albumin (she received a dose on September 14 and September 16), the use of IV Lasix (she has been on Lasix 20 mg twice a day since September 13), holding her home hydrochlorothiazide, her sodium level has started to go up close to normal levels over the last 2 days. On September 15 her sodium got up to 128 and on September 16 it was 130 and on September 21 it was 133. Nasra is on fluid restrictions as well. On September 20, the IV Lasix has been stopped . Another persistent issue has been leg swelling and leg pain along with severe bilateral leg weakness which contributed to her not being able to ambulate and move about. I was asked to see her on September 12 for the leg weakness and she has had severe pitting edema and anasarca of her lower extremities. However over the last 6 days the pitting edema and anasarca have improved with the use of Lasix and/or getting her sodium increased. She also had JAMEY hose, SCDs and Multi-Podus boots which all may be helping with the swelling in herlower extremities. However, the SCDs have been removed over the last 4 days. However her legs remained very weak. However since September 17, she is starting to get some mild improvement in her leg strength. She has extensive ecchymoses in her proximal thighs. As part of the workup for leg weakness I did do MRIs of her spine and brain which showed no cause for her leg weakness. I did do a CT scan of her abdomen and pelvis looking for a retroperitoneal hematoma on September 13. This study suggested a possible area of hemorrhage in the right psoas muscle but I do not think this would be causing all of her symptoms. The radiologist also made note on the CT scan of her abdomen and pelvis that there is extensive anasarca particularly in the pelvis. Another issue has been the discovery of a right lower extremity DVT in her right peroneal vein and soleal vein that was picked up on a venous ultrasound on September 12. Due to this finding the patient has been on therapeutic Lovenox from September 12 through September 19. On September 20 , the Lovenox has been changed to Eliquis. Patient has been anemic since transfer here. Her hemoglobin on September 11 at the time of transfer was8.5 with a hematocrit of 23.6. On September 16 however her hemoglobin had dropped to 6.9 and her hematocrit had dropped to 20.3. Therefore on September 16 she received a blood transfusion. I have also noted this admission that the patient has had an elevated CK. No CKs were checked at [facility] but her CK was elevated at 3300 on September 14 and the CK has improved to 1200 by September 16. On September 18 her CK had continue to improve to 538. A vitamin B12 and folate level are normal. She does have extensive bruising of her bilateral posterior thighs which I assume is from the fall of September 04 . I did repeat a CT scan of her abdomen and pelvis on September 17 out of concern of the dropping hemoglobin on September 16 and the possible right psoas hemorrhage on the CAT scan of September 13. This study showed the followin) Pleural effusions and bibasilar consolidation, probably secondary to pneumonia. Follow-up to complete resolution recommended. ??2) Mild right hydronephrosis of uncertain etiology. ??3) Constipation. 4) Anasarca is noted. ?? The differential for her bilateral leg weakness and pain could include one or combination of the followin) injury to the lumbar sacral plexus and/or injury to the sciatic nerves (and/or femoral nerves) from the fall of September 04 and/or resulting swelling and anasarca. 2) rhabdomyolysis and/or myopathy-her elevated CK noted on September could be a sign that she may have suffered from rhabdomyolysis at some point in time. 3) Manifestation of her hyponatremia. I have found a couple case reports of hyponatremia causing rhabdo myelolysis. 5) Vasculitis. At this time I do not know the exact etiology of her bilateral leg weakness and pain and there are multiple potential causes. However, I am encouraged that her leg weakness is starting to improve with reducing the leg swelling and anasarca in her legs as well as improving the sodium level. The use of compression stockings may be helping as well. I am keeping an open mind on this case but I am suspicious that the majority of her symptoms and signs in her lower extremity may be due to rhabdomyolysis and/or swelling and anasarca. As above I have found some case reports of hyponatremia causing rhabdomyolysis. At this time, I recommend the following: ?? 1) At discharge she should follow-up with an outpatient neurologist not drive until released by physician. If her leg weakness persists she may eventually need an EMG/nerve conduction study of her lower extremities as an outpatient. 2) Given the drop in hemoglobin of September 16 requiring a blood transfusion as well as her persistent anemia, to continue weighing the risk and benefits of continuing anticoagulation for her recently discovered right lower extremity DVT. However at this time I agree with Dr. Mccarty's judgment that thepotential benefits of anticoagulation outweigh the risk. 3) I am going to continue her Neurontin at 100mg once at night.. I agree with Dr. Mccarty's move to decrease the dose of this medicine given some confusion of September 20. 4) continue treating underlying medical conditions as you are. 5) I agree with physical therapy. 6) I agree with medical maneuvers to try to normalize her sodium and/or decrease lower extremity swelling and/or anasarca. 7) continue JAMEY hose which I think are both helping with the lower extremity swelling. I also agreewith the Multi-Podus boots. I note that the SCDs have recently take been taken off the patient. Shemay eventually need these back if anticoagulation is stopped. 8) if it is ever decided that the risk of anticoagulation outweigh the benefits, we may need to reconsult vascular surgery to consider an IVC filter for her right lower extremity DVT. 9) as part of a workup for a myopathy and/or rhabdomyolysis, I have considered ordering an MRI of her thigh. However as she is getting better and her CK levels are dropping I suspect this test would be low yield. 10) patient may eventually need follow-up for the small pleural effusions and mild right hydronephrosis seen on her two CAT scans of the abdomen and pelvis here. 11) I agree with a multivitamin. I will continue to follow intermittently with you. Plan * Meagan Rodriguez RN - 09/23/2023 11:07 AM EDT Discharge Plan Progress Note CM notified Marketing And Public Relations Manager at 0958 regarding need for EMS DNR. CM called and spoke to michelle choudhury# [phone] regarding probable discharge tomorrow with transport at 1330 via [facility]. Meagan Rodriguez RN * Sim Cole MD - 09/23/2023 10:38 AM EDT Images from the original note were not included. [facility] INFECTIOUS DISEASE PROGRESS NOTE Birgit Estrada 1950 [id number] Date of consult: 09/13/2023 Admit date: 09/12/2023 Requesting Provider: @[email or web address]@ Evaluating physician: Sim Cole MD Reason for Consultation: Acute bacterial cystitis Chief Complaint: Above Subjective History of present illness: Patient is a 73 y.o. Yr old female who is a poor historian with a history of essential hypertension, DJD, fell around 09/05/2023, sustaining increasing right hip pain, and was evaluated at an outside hospital and shown to have severe hyponatremia which was not improving. Patient also had a chest x-ray with possible opacity, with a normal CT scan negative for malignancy. CT scan of the head was unremarkable. Patient was transferred and admitted to [facility] on 09/12/2023. Urinalysis had significant pyuria at 11-20 WBCs but minimal symptoms. Right hip had noted hematoma likely relatedto her previous fall. Chest x-ray at [facility] was unremarkable. The patient was placedon piperacillin/tazobactam and doxycycline on 09/11. Duplex ultrasound was significant for right lower leg DVT in the peroneal and soleus veins. I was consulted on 09/13/2023 for further evaluation and treatment. No reported history of ill contacts, zoonotic exposures, TB, HIV, significant travel, immunocompromised state. 09/14/23 history reviewed. Difficulty with moving her right foot. Slightly confused. No high fever. Tolerating antibiotics. 09/15/23 history reviewed. Feels better. Slightly less confused. Tolerating antibiotics. No high fever. 09/16/23 hx rev. No high fever. Keena abx. No pain. Urine and blood cx neg. 09/17/2023 history reviewed. No high fever. Slow improvement. 09/20/2023 history reviewed. No high fevers or chills. Feels better. 09/21/23 history reviewed. The patient was getting ready to transfer to skilled facility. Became acutely more confused and noncommunicative. No high fever. 09/22/23 history reviewed. Less confused. No high fever. Off antibiotics since 09/21. 09/23/2023 history reviewed. No high fever. Occasional loose stool. Off antibiotics since 09/21. Past Medical History: Diagnosis Date ??? Arthritis ??? Hypertension Past Surgical History: Procedure Laterality Date ??? CHOLECYSTECTOMY ??? TONSILLECTOMY ??? TUBAL LIGATION Pediatric History Patient Parents ??? Not on file Other Topics Concern ??? Not on file Social History Narrative ??? Not on file Negative for cigarettes, alcohol, or drug use family history is not on file. Reviewed and unremarkable No Known Allergies Immunization History Administered Date(s) Administered ??? COVID-19 2022- VACCINE MODERNA (SPIKEVAX) 12 YRS + (FUG194) 05/18/2023 ? ? COVID-19 VACCINE MRNA (MODERNA/BIVALENT)(DARK BLUE CAP W/DOAN)([id number] & [id number]) 03/10/2022 ??? Covid-19 Vaccine MRNA (PF) 18yr+ (Moderna)([id number]) 07/18/2020, 08/15/2020, 02/27/2021, 11/04/2021 Medication: @Scheduled Meds: ??? amLODIPine 2.5 mg Oral Daily 2.5 mg at 09/23/23 0814 ??? apixaban 10 mg Oral BID 10 mg at 09/23/23 0825 ??? aspirin 81 mg Oral Daily 81 mg at 09/23/23 0814 ??? busPIRone 5 mg Oral BID 5 mg at 09/23/23 0814 ??? escitalopram oxalate 10 mg Oral QAM 10 mg at 09/23/23 0613 ??? gabapentin 100 mg Oral Every Night 100 mg at 09/22/232153 ??? melatonin 9 mg Oral Every Night 9 mg at 09/22/232153 ??? multivitamin 1 tablet Oral Daily 1 tablet at 09/23/23813 ??? pantoprazole 40 mg Oral Daily 40 mg at 09/23/23813 ??? polyethylene glycol 3350 17 g Oral Daily 17 g at 09/23/23813 ??? senna-docusate 1 tablet Oral Every Night 1 tablet at 09/22/232153 ??? sodium chloride 1 g Oral Once ??? sodium chloride 1 g Oral Once Continuous Infusions: ??? sodium chloride 0.9% (NS) PRN Meds:. ??? acetaminophen ??? cloNIDine HCL ??? cyclobenzaprine ??? docusate sodium ??? hydrALAZINE ??? ipratropium-albuteroL ??? ondansetron Or ??? ondansetron PF ??? polyethylene glycol 3350 ??? sodium chloride 0.9% (NS) Please refer to the medical record for a full medication list Review of Systems: Constitutional-- No Fever, chills or sweats. Appetite fair, and no malaise. Some fatigue. HEENT-- No new vision, hearing or throat complaints. No epistaxis or oral sores. Denies odynophagiaor dysphagia. No odynophagia or dysphagia. No headache, photophobia or neck stiffness. CV-- No chest pain, palpitation or syncope Resp-- No SOB/cough/Hemoptysis GI- No nausea, vomiting, or diarrhea. No hematochezia, melena, or hematemesis. Denies jaundice or chronic liver disease. -- No dysuria, hematuria, or flank pain. Denies hesitancy, urgency. Occasional frequency. Lymph- no swollen lymph nodes in neck/axilla or groin. Heme- No active bruising or bleeding; no Hx of DVT or PE. MS-- no swelling or pain in the bones or joints of arms/legs, except right hip as per HPI. No new back pain. Neuro-- No acute focal weakness or numbness in the arms or legs. No seizures. Except right foot with some foot drop. Skin--No rashes or lesions. No nodules. Physical Exam: Vital Signs Temp: [97.7 ??F (36.5 ??C)-97.9 ??F (36.6 ??C)] 97.7 ??F (36.5 ??C) Pulse: [82-94] 82 Resp: [16-18] 16 BP: (125-154)/(56-68) 132/56 Blood pressure 132/56, pulse 82, temperature 97.7 ??F (36.5 ??C), resp. rate 16, height 1.6 m (5' 3 ), weight 48.5 kg (107 lb), SpO2 93 %. GENERAL: Alert, in moderate distress. Appears older than stated age. Resting in bed. HEENT: Normocephalic, atraumatic. Oropharynx without thrush. Dentition in fair repair. No cervical adenopathy. No neck masses. Ears externally normal, Nose externally normal. Trachea midline. EYES: No conjunctival injection. No icterus. EOM full. LYMPHATICS: No lymphadenopathy of the neck or axillary or inguinal regions. HEART: No murmur, gallop, or pericardial friction rub. Reg rate rhythm. No JVD. LUNGS: Clear to auscultation and percussion. No respiratory distress, no use of accessory muscles. No rales or rhonchi. No wheezes. ABDOMEN: Soft, nontender, nondistended. No appreciable HSM. Bowel sounds normal. SKIN: Warm and dry without cutaneous eruptions. No nodules. Right hip hematoma noted. No surrounding crepitus or bullae. PSYCHIATRIC: Mental status with less confusion. EXT: No cellulitic change. Normal ROM. NEURO: Oriented to name, right foot drop Results Review: I reviewed the patient's new clinical results. Recent Labs Lab(s) Units 09/22/23 0322 09/21/23 0234 09/20/23 0229 WBC K/??L 12.4* 12.6* 13.1* 13.4* HGB GM/DL 7.3* 7.5* 7.9* 7.7* HCT % 22.0* 22.8* 23.5* 22.5* PLT K/CU MM 243 251 272 240 Recent Labs Lab(s) Units 09/22/23 0322 NA meq/L 133* K meq/L 4.7 CL meq/L 103 CO2 meq/L 27 BUN mg/dL 24* CREATININE mg/dL 0.65 GLUCOSE mg/dL 105 CALCIUM mg/dL 8.7 Recent Labs Lab(s) Units 09/22/23 0322 ALKPHOS U/L 43 BILITOT mg/dL 1.0 ALT U/L 81* AST U/L 32 No results for input(s): SEDRATE in the last 168 hours. No results for input(s): CRP in the last 168 hours. No results for input(s): VANCOTROUGH , VANCORANDOM in the last 168 hours. No results for input(s): LACTATE in the last 168 hours. Estimated Creatinine Clearance: 38.4 mL/min (by C-G formula based on SCr of 0.65 mg/dL). @LABRCNTIP (cpk,ast,alt,alkaline phosphatase)@ Microbiology: Microbiology Results (last 7 days) Procedure Component Value Units Date/Time Blood Culture [[id number]] Collected: 09/19/23 1137 Order Status: Completed Specimen: Blood Updated: 09/22/23 1600 Result No growth in 3 days Blood Culture Arm, Right Lower [[id number]] Collected: 09/19/23 1146 Order Status: Completed Specimen: Blood from Arm, Right Lower Updated: 09/22/23 1600 Result No growth in 3 days Blood Culture Antecubital, Right [[id number]] Collected: 09/12/23 1806 Order Status: Completed Specimen: Blood from Antecubital, Right Updated: 09/18/23 0101 Result No growth in 5 days Blood Culture Forearm, Left [[id number]] Collected: 09/12/23 181 Order Status: Completed Specimen: Blood from Forearm, Left Updated: 09/18/23 0101 Result No growth in 5 days Radiology: Radiology Results (last 3 days) Procedure Component Value Units Date/Time CT brain without IV contrast [[id number]] Collected: 09/21/231821 Order Status: Completed Updated: 09/21/231824 Narrative: CT HEAD WITHOUT IV CONTRAST 09/21/2023 6:00 AM HISTORY: Mental status change, unknown cause TECHNIQUE: Multiple axial CT images were performed from the foramen magnum to the vertex. Coronal reformatted images were reconstructed from axial data set. Individualized dose reduction techniques using automated exposure control or adjustment of mA and/or kV according to the patient size were employed. COMPARISON: CT 09/13/2023, MRI 09/16/2023 FINDINGS: No acute intracranial hemorrhage or large acute cortical infarct. Chronic small vessel ischemic white matter changes and generalized cerebral volume loss are present. Ventricles are mildly prominent. No midline shift. The basal cisterns are patent. No skull fracture. The visualized paranasal sinuses and mastoid air cells are clear. Impression: No acute intracranial hemorrhage or large acute cortical infarct. Images personally reviewed, interpreted and dictated by Sarwat Santos M.D. . IMPRESSION: 1. Pyuria with possible acute bacterial cystitis. Urine culture from 09/11 negative. Partially treated. Clinically resolved. 2. Right hip hematoma after fall 09/05/2023. X-ray without fracture on 09/15. Right psoas muscle with intramuscular hematoma from CT abdomen and pelvis 09/13. 3. Right sternocleidomastoid muscle loculated signal, potential hematoma seen on MRI 09/16. 4. Reported chest x-ray infiltrate resolved. Could have had atelectasis, and is at risk for pulmonary embolus given demonstration of new DVT. CT scan of the abdomen and pelvis with basilar infiltrate. 5. DVT right lower leg soleus and peroneal veins positive duplex 09/13/2023. 6. Leukocytosis, neutrophilic related to above issues. Minor and improved. Previously related to cystitis versus other including noninfectious reasons with her hematomas from fall. Blood cultures x 2from 09/11 negative. 7. Hyponatremia related to above issues, medications, possible SIADH, versus other. 132. Ongoing. 8. Anemia, related to above issues and right hip hematoma. Slightly worse. 9. Hypocalcemia 8.0. 10. Elevated transaminase with ALT 213, ongoing, AST 308, ongoing, total bilirubin 0.9, alkaline phosphatase 45. Reportedly CT scan abdomen and pelvis at outside hospital without significant pathology. May need to repeat ultrasound versus other. Likely also related to muscle injury. 11. Rhabdo, CK 2217, ongoing. Related to her recent fall and trauma to leg. 12. Encephalopathy, toxic and metabolic. MRI brain without intracranial abnormalities from 09/16. Worse on 09/20. Likely metabolic related to medications. Improved on 09/21 with decrease of gabapentin dose. 13. Loose stool, on stool softener. New. PLAN: 1. Diagnostically, continue to follow patient's physical exam, CBC, CMP, CRP. Radiographs as needed. 2. Therapeutically, stopped doxycycline and ceftriaxone on 09/19 and reassess. Cultures were negativeon this admission. Continue to follow off antibiotics. This provided coverage for possible pneumonia or urinary tract infection. The patient is at risk for developing infections of her various hematomas. So far nontoxic though. Discontinue stool softener. 3. Supportive care. Room air on 09/13/2023. Orthopedics, nephrology, neurology evaluating. I discussed the patient's findings and my recommendations with the patient and nursing. Thank you for asking me to see Birgit Estrada. Our group would be pleased to follow this patient over the course of their hospitalization and assist with outpatient antimicrobial therapy, as indicated. Further recommendations depend on the results of the cultures and clinical course. Increased riskfor adverse drug reactions, complications of IV access, need for surgery, readmission. I prev discussed with the patient's son, and the patient's daughter. Discussed with Dr. Mccarty 09/20. Sim Cole MD 09/23/2023 * Oskar Marin, PT - 09/23/2023 9:13 AM EDT Images from the original note were not included. Inpatient Physical Therapy Treatment Patient Name: Birgit Estrada Date of : 1950 Date of Treatment: 09/23/23 Start Time 850 Stop Time 913 Session Duration 23 minutes General Visit Type: Treatment Approved by: Nurse Moon Patient Disposition Upon Entry: Supine in bed, Call Light/Pull Cord in reach, All needs met and within reach, Nursing aware/notified, Visitor/Family present Patient Verified By: Name and Date of Precautions Weight-Bearing Status: No Restrictions Precautions: Fall risk Isolation Precautions: Standard Subjective Subjective: Patient agreeable to physical therapy treatment. Pain Yes. 0-10 SCALE Pain location: Bilat thighs pt rates pain above 10/10; RN present to administer pain meds Cognition Overall cognitive status: WFL Orientation Level: Oriented x4 Objective Functional Mobility Bed Mobility: Patient declined to attempt this date. Transfers Patient declined to attempt this date. Gait Not safe to attempt due to medical condition or safety Stair Management Not safe to attempt due to medical condition or safety Wheelchair Mobility Not safe to attempt due to medical condition or safety [facility] Basic Mobility Inpatient Short Form How much difficulty does the patient currently have: Turning over in bed (including adjusting bedclothes, sheets, and blankets)? (1) Total/Unable (not able to do the activity or can only perform the activity using assistive devices or requires assistance from another person, including supervision or cueing for safety) Sitting down on and standing up from a chair with arms (e.g., wheelchair, bedside commode, etc.)? (1) Total/Unable (not able to do the activity or can only perform the activity using assistive devices or requires assistance from another person, including supervision or cueing for safety) Moving from lying on back to sitting on side of bed? (1) Total/Unable (not able to do the activity or can only perform the activity using assistive devices or requires assistance from another person,including supervision or cueing for safety) How much help from another person does the patient currently need: Moving to and from a bed to a chair (including a wheelchair)? (1) Total/Unable (Total assist/dependent) Need to walk in hospital room? (1) Total/Unable (Total assist/dependent) Climbing 3-5 steps with a railing? (1) Total/Unable (Total assist/dependent) Score Raw score=6 t-Scale score=23.55 Standard error=4.57 CMS 0-100%=100.00% MDC=4.72 A raw score of >= 16 is significantly associated with increased odds of discharge to home in addition to consideration made for the patient's cognition and social determinants of health. Balance Unable to assess Activity Tolerance Patient limited with activity/intervention due to pain Treatment Pt in intense pain during session and requests to not mobilize even to EOB due to this. Educated pton benefits of movement and role of therapy and provided much encouragement from DIL present in room. Pt still reluctant and instead was lead through AROM, AAROM, and PROM of ankle, knee, and hip joints to possibly aid pain. Reports pain during active use of knee extensors as well as during full extension of knees. Unsure if pain is related to DVT or is of osteoarthritic or muscular origin at this time. Assessment Pt displays poor tolerance to activity at this time and is severely limited by pain. RN reports pt would likely not have tolerated session later in day after meds administered therefore, coordinated session with administration of meds. Anticipate pt will continue to benefit from PTx during and after admission to improve tolerance to functional activity. Problems: Decreased functional mobility, Decreased strength, Decreased activity tolerance, Pain Rehab potential: Good for stated goals Plan Treatment plan: Continue per POC. PT Frequency/Duration: 5x/week for 14 days Recommendations Discharge recommendations:??Patient would benefit from 3 hours of intensive multidisciplinary therapy per day to maximize functional outcomes and address functional limitations to return to highest level of functioning. ?? DME recommendations:??no needs if discharging to rehab ?? Goals Supine to/from sit:??mod I with rail Sit to/from stand:??SBA with RWx Gait:??150 ft SBA with RWx Stair Negotiation:??1 stair, no rail min A Target Date:?09/27/2023 Progress towards goals:??progressing ?? Education Patient??educated on safety, use of call button, role of physical therapy, plan of care, ambulation, transfers, bed mobility, proper positioning and balance required for functional mobility tasks, need for assistance and risk for falls??and following, they were??able to verbalize??understanding. Nofurther questions or concerns stated. ?? Patient Disposition Upon Leaving Supine in bed, Call Light/Pull Cord in reach, All needs met and within reach, Nursing aware/notified, Nursing at bedside If this patient discharges prior to next therapy session, this note serves as the patient's discharge summary. Electronically signed by Oskar Marin PT - 09/23/23 - 11:33 AM EDT * Oskar Marin PT - 09/22/2023 3:26 PM EDT Images from the original note were not included. Inpatient Physical Therapy Treatment Patient Name: Birgit Estrada Date of : 1950 Date of Treatment: 09/22/23 Start Time 1440 Stop Time 1526 Session Duration 46 minutes General Visit Type: Treatment Approved by: Nurse Ericka Patient Disposition Upon Entry: Supine in bed, Call Light/Pull Cord in reach, All needs met and within reach, Nursing aware/notified, Visitor/Family present Patient Verified By: Name and Date of Precautions Weight-Bearing Status: No Restrictions Precautions: Fall risk Isolation Precautions: Standard Subjective Subjective: Patient agreeable to physical therapy treatment. Pain No - Patient not reporting pain at this time Cognition Overall cognitive status: WFL Orientation Level: Oriented x4 Objective Functional Mobility Bed Mobility: Supine to Sit: moderate assistance, 1-person assist Sit to Supine: moderate assistance, 1-person assist Transfers Sit to Stand: maximal assistance, 1-person assist, gait belt used, rolling walker used Stand to Sit: maximal assistance, 1-person assist, gait belt used, rolling walker used Gait Not safe to attempt due to medical condition or safety Stair Management Not safe to attempt due to medical condition or safety Wheelchair Mobility Not safe to attempt due to medical condition or safety AM-PAC Basic Mobility Inpatient Short Form How much difficulty does the patient currently have: Turning over in bed (including adjusting bedclothes, sheets, and blankets)? (1) Total/Unable (not able to do the activity or can only perform the activity using assistive devices or requires assistance from another person, including supervision or cueing for safety) Sitting down on and standing up from a chair with arms (e.g., wheelchair, bedside commode, etc.)? (1) Total/Unable (not able to do the activity or can only perform the activity using assistive devices or requires assistance from another person, including supervision or cueing for safety) Moving from lying on back to sitting on side of bed? (1) Total/Unable (not able to do the activity or can only perform the activity using assistive devices or requires assistance from another person,including supervision or cueing for safety) How much help from another person does the patient currently need: Moving to and from a bed to a chair (including a wheelchair)? (1) Total/Unable (Total assist/dependent) Need to walk in hospital room? (1) Total/Unable (Total assist/dependent) Climbing 3-5 steps with a railing? (1) Total/Unable (Total assist/dependent) Score Raw score=6 t-Scale score=23.55 Standard error=4.57 CMS 0-100%=100.00% MDC=4.72 A raw score of >= 16 is significantly associated with increased odds of discharge to home in addition to consideration made for the patient's cognition and social determinants of health. Balance Static/dynamic sitting and static/dynamic standing balance grades Balance Grade Sitting Static Good - patient able to maintain balance without handhold support, limited postural sway Sitting Dynamic Fair - patient accepts minimal challenge; able to maintain balance while turning head/trunk Standing Static Poor - patient requires handhold support and moderate to maximal assistance to maintain position Standing Dynamic Poor - patient unable to accept challenge or move without loss of balance Activity Tolerance Patient limited with activity/intervention due to fatigue and lethargy Treatment Pt and daughter in law present in room at this time and with questions about pt's physical capabilities. Educated both on reasoning behind not attempting standing yesterday as pt displays limited ROMon R foot and pt was in too much pain while sitting to continue session. Instructed pt to come up to sitting and to attempt maintaining balance without physical A. Displaysgood carryover of cues for hand placement as well as strategies for forward trunk lean. Stood to RWx x2 with cues for forward trunk lean, hand placement, and foot placement. Displays strong retro lean with both attempts and responds minimally to verbal and tactile cueing. First standing trial performed with therapist on pt L side to provide tactile A to hips for full extension but little carryover. On second trial, therapist in front of patient and providing A only at gait belt but maintained standing for much longer (over 60sec) before requesting to sit down. Pt returned to supine and was provided with dep pericare after rolling L and R via RNEricka, present in room at this time. Pt andDIL further educated on course of care prior to end of session. Pt provided HEP to perform while insupine due to complaints of weakening BLE. Assessment Pt displays somewhat improved tolerance to activity this date via two standing trials but still with strong concern for safety when on EOB or OOB. Will attempt transfser to BSC upon next treatment session if pt will tolerate. Anticipate pt will continue to benefit from PTx during and after admission to improve tolerance to functional activity, increase functional strength, and to decrease burden of care. Problems: Decreased functional mobility, Decreased activity tolerance, Pain Rehab potential: Good for stated goals Plan Treatment plan: Continue per POC. PT Frequency/Duration: 5x/week for 14 days Recommendations Discharge recommendations: Patient would benefit from 3 hours of intensive multidisciplinary therapy per day to maximize functional outcomes and address functional limitations to return to highest level of functioning. ?? DME recommendations:??no needs if discharging to rehab ?? Goals Supine to/from sit:??mod I with rail Sit to/from stand:??SBA with RWx Gait:??150 ft SBA with RWx Stair Negotiation:??1 stair, no rail min A Target Date:?09/27/2023 Progress towards goals:??progressing ?? Education Patient educated on safety, use of call button, role of physical therapy, plan of care, ambulation,transfers, bed mobility, proper positioning and balance required for functional mobility tasks, need for assistance and risk for falls and following, they were able to verbalize understanding. No further questions or concerns stated. ?? Patient Disposition Upon Leaving Supine in bed, Call Light/Pull Cord in reach, All needs met and within reach, Nursing aware/notified, Nursing at bedside If this patient discharges prior to next therapy session, this note serves as the patient's discharge summary. Electronically signed by Oskar Marin PT - 09/22/23 - 4:34 PM EDT ] * Dede Rendon APRN - 09/22/2023 1:11 PM EDT Hospitalist Progress Note Date of Service: 09/22/2023 PCP: Provider Not In System Chief Complaint: No chief complaint on file. Subjective I rounded with OMER Barnett. I reviewed nursing notes and event log, MAR, foreign law consultant notes, imaging and radiology as below. Review of Systems Neurological: Confusion Objective Vitals: 09/22/23 0040 09/22/23 0420 09/22/23 0810 09/22/23 1120 BP: 138/69 133/55 (!) 154/68 Pulse: 85 97 94 Resp: 18 Temp: 98.1 ??F (36.7 ??C) 98.2 ??F (36.8 ??C) 98.2 ??F (36.8 ??C) TempSrc: Axillary Oral Oral SpO2: 100% 100% Weight: Height: Intake/Output Summary (Last 24 hours) at 09/22/2023 1311 Last data filed at 09/22/2023 1200 Gross per 24 hour Intake 220 ml Output 800 ml Net -580 ml Physical Exam Vitals and nursing note reviewed. Constitutional: Appearance: Normal appearance. HENT: Head: Normocephalic and atraumatic. Nose: Nose normal. Mouth/Throat: Mouth: Mucous membranes are moist. Eyes: Pupils: Pupils are equal, round, and reactive to light. Cardiovascular: Rate and Rhythm: Normal rate and regular rhythm. Pulses: Normal pulses. Heart sounds: Normal heart sounds. No murmur heard. Pulmonary: Effort: Pulmonary effort is normal. No respiratory distress. Comments: Dim in bases Abdominal: General: Abdomen is flat. Bowel sounds are normal. Palpations: Abdomen is soft. Musculoskeletal: Comments: Multi-Podus boots in place JAMEY hose in place Skin: General: Skin is warm and dry. Capillary Refill: Capillary refill takes less than 2 seconds. Comments: Ecchymosis noted over chest wall, bilateral thighs Neurological: General: No focal deficit present. Mental Status: She is alert. She is disoriented. Comments: Confabulating Psychiatric: Mood and Affect: Mood normal. Behavior: Behavior normal. I personally reviewed and interpreted the following pertinent laboratory and diagnostic studies: Pertinent Labs: Results for orders placed or performed during the hospital encounter of 09/12/23 (from the past 24 hour(s)) Blood gas, arterial Status: Abnormal Collection Time: 09/21/23 5:05 PM Result Value Ref Range pH, Arterial 7.48 (H) 7.35 - 7.45 pCO2, Arterial 38 35 - 45 mm Hg pO2, Arterial 76 (L) 80 - 100 mm Hg HCO3, Arterial 28 (H) 20 - 26 mmol/L Base Excess, Arterial 4.3 (H) -2.0 - 2.0 mmol/L O2 Sat, Arterial 97.0 95.0 - 100.0 % CTO2 ARTERIAL 12.6 mmol/L THB ARTERIAL 9.5 (L) 12.0 - 18.0 g/dL PaO2/FIO2 calculated 361.0 [facility] COLLECTION SITE Right Radial Arterial Puncture Yes Blood Gas PT Temperature C 37.0 Marques's Test Acceptable ABG Number of Draw Attempts 1 Performed by: jenny deshpande FIO2 21.0 Blood Gas Temperature Corrected Results No No CBC - Hemogram (-BKR) Status: Abnormal Collection Time: 09/22/23 3:22 AM Result Value Ref Range WBC 12.6 (H) 4.0 - 10.0 K/??L RBC 2.43 (L) 3.93 - 5.22 M/??L Hemoglobin 7.5 (L) 11.2 - 15.7 GM/DL Hematocrit 22.8 (L) 34.1 - 44.9 % MCV 94 79 - 95 fL MCH 30.9 25.6 - 32.2 pg MCHC 32.9 32.2 - 35.5 GM/DL RDW 15.1 (H) 11.7 - 14.4 % Platelets 251 140 - 375 K/CU MM MPV 9.5 9.4 - 12.3 fL Ammonia Status: Abnormal Collection Time: 09/22/23 3:22 AM Result Value Ref Range Ammonia <10 (L) 11 - 32 ??mol/L CBC w Manual Diff (SJ-BKR) Status: Abnormal Collection Time: 09/22/23 3:22 AM Result Value Ref Range WBC 12.4 (H) 4.0 - 10.0 K/??L RBC 2.35 (L) 3.93 - 5.22 M/??L Hemoglobin 7.3 (L) 11.2 - 15.7 GM/DL Hematocrit 22.0 (L) 34.1 - 44.9 % MCV 94 79 - 95 fL MCH 31.1 25.6 - 32.2 pg MCHC 33.2 32.2 - 35.5 GM/DL RDW 15.4 (H) 11.7 - 14.4 % Platelets 243 140 - 375 K/CU MM MPV 9.6 9.4 - 12.3 fL Comprehensive metabolic panel Status: Abnormal Collection Time: 09/22/23 3:22 AM Result Value Ref Range Sodium 133 (L) 136 - 146 meq/L Potassium 4.7 3.5 - 5.1 meq/L Chloride 103 102 - 112 meq/L CO2 27 21 - 32 meq/L Calcium 8.7 8.4 - 10.1 mg/dL Glucose 105 74 - 106 mg/dL BUN 24 (H) 7 - 22 mg/dL Creatinine 0.65 0.55 - 1.02 mg/dL BUN/Creatinine 37 (H) 8 - 20 Albumin 2.5 (L) 3.4 - 5.0 g/dL Alkaline Phosphatase 43 27 - 136 U/L ALT 81 (H) 13 - 56 U/L AST 32 5 - 37 U/L Total Bilirubin 1.0 0.2 - 1.2 mg/dL Protein, Total 5.1 (L) 6.4 - 8.2 gm/dL Anion Gap 8 (L) 9 - 20 A/G Ratio 1.0 (L) 1.1 - 2.5 Globulin 2.6 1.5 - 4.5 g/dL Osmolality Calc 270.8 eGFR (mL/min/1.73m2) >60 >=60 mL/min/1.73m2 Manual Differential Status: Abnormal Collection Time: 09/22/23 3:22 AM Result Value Ref Range Total Counted 100 % Neutros (manual) 90 (H) 50 - 65 % % Lymphs (manual) 5 (L) 24 - 44 % % Monos (manual) 5 4 - 5 % Platelet Estimate Adequate Adequate Anisocytosis 1+ Macrocytes 1+ ANC# 11.16 K/??L Pertinent Radiology Results: Radiology Results (last 7 days) Procedure Component Value Units Date/Time CT brain without IV contrast [[id number]] Collected: 09/21/231821 Order Status: Completed Updated: 09/21/231824 Narrative: CT HEAD WITHOUT IV CONTRAST 09/21/2023 6:00 AM HISTORY: Mental status change, unknown cause TECHNIQUE: Multiple axial CT images were performed from the foramen magnum to the vertex. Coronal reformatted images were reconstructed from axial data set. Individualized dose reduction techniques using automated exposure control or adjustment of mA and/or kV according to the patient size were employed. COMPARISON: CT 09/13/2023, MRI 09/16/2023 FINDINGS: No acute intracranial hemorrhage or large acute cortical infarct. Chronic small vessel ischemic white matter changes and generalized cerebral volume loss are present. Ventricles are mildly prominent. No midline shift. The basal cisterns are patent. No skull fracture. The visualized paranasal sinuses and mastoid air cells are clear. Impression: No acute intracranial hemorrhage or large acute cortical infarct. Images personally reviewed, interpreted and dictated by Sarwat Santos M.D. CT ABDOMEN/PELVIS WITHOUT IV CONTRAST Standard Protocol [[id number]] Collected: 09/18/23 1356 Order Status: Completed Updated: 09/18/23 1411 Narrative: CT SCAN OF THE ABDOMEN AND PELVIS WITHOUT CONTRAST; 09/18/2023 1:26 PM HISTORY: Right psoas hematoma. COMPARISON: September 14, 2023. PROCEDURE: Axial images were obtained from the lung bases to the pubic symphysis by computed tomography. This study was performed with techniques to keep radiation doses as low as reasonably achievable, (ALARA). Individualized dose reduction techniques using automated exposure control or adjustment of mA and/or kV according to the patient size were employed. FINDINGS: ABDOMEN: A 5 mm nodule in the right middle lobe is stable. There are moderate bilateral pleural effusions. There is bibasilar consolidation. The gallbladder is absent. There is mild right hydronephrosis. There is no nephrolithiasis. The left kidney is unremarkable. There is extensive stool throughout the colon. PELVIS: Anasarca is noted. There is trace ascites. The urinary bladder is unremarkable. There is fecal impaction in the rectal vault. Impression: Pleural effusions and bibasilar consolidation, probably secondary to pneumonia. Follow-up to complete resolution recommended. Mild right hydronephrosis of uncertain etiology. Constipation. Images reviewed, interpreted, and dictated by Jairo Acosta MD MR spine cervical without IV contrast [[id number]] Collected: 09/17/23815 Order Status: Completed Updated: 09/17/23826 Narrative: MRI CERVICAL SPINE HISTORY: Increasing weakness after fall a few days. COMPARISON:Outside study from September 06, 2023 PROCEDURE: Multiplanar MR imaging of the cervical spine was performed in multiple MR sequences. FINDINGS: Exam is Limited secondary to significant motion artifact. Limited images of the posterior fossa are unremarkable. In the region of the right sternocleidomastoid muscle is a loculated high T2 signal within the fluid fluid level measuring up to 2.6 cm. Could potentially be secondary to hematoma, correlate clinically. Alignment appears appropriate without evidence of fracture. Assessment of the cervical cord is extremely limited. C2-C3: Disc osteophyte complex abuts thecal sac anteriorly, central canal and neural foramen appear patent. C3-C4: Disc osteophyte complex abuts thecal sac, central canal remains patent, moderate right and mild left foraminal narrowing. C4-C5: Disc osteophyte complex, asymmetric to the right. There is mild narrowing of the central canal and moderate to severe narrowing of the right and moderate narrowing of the left neural foramen. C5-C6: Disc osteophyte complex, asymmetric to the right. This abuts thecal sac anteriorly. Central canal remains patent, moderate right neural foraminal narrowing. C6-C7: Disc osteophyte complex, no central canal stenosis, mild narrowing of the bilateral neural foramen. C7-T1: No significant disc disease is present. There is no canal stenosis. Impression: Exam limited by motion artifact. Multilevel spondylosis and stenosis as above. In the region of the right sternocleidomastoid muscle is a loculated high T2 signal within the fluid fluid level measuring up to 2.6 cm. Could potentially be secondary to hematoma, correlate clinically. Images reviewed, interpreted, and dictated by Bossman Ramirez DO MR Brain Without IV Contrast [[id number]] Collected: 09/17/23 0017 Order Status: Completed Updated: 09/17/23 0021 Narrative: MRI OF THE BRAIN HISTORY: Neuro deficit, acute, stroke suspected PROCEDURE: Multiplanar, multisequence MRI of the brain was performed without IV contrast. COMPARISON: CT 09/13/2023 FINDINGS: Diffusion weighted images demonstrate no evidence of acute infarct. No evidence of mass, hemorrhage or edema. Chronic small vessel ischemic white matter changes and generalized cerebral volume loss are present. The ventricles are prominent. There is no extra-axial collection or midline shift. Flow-voids are grossly preserved. Limited images of the proximal cord are unremarkable. Partial opacification of right sphenoid sinus. Small mastoid air cell effusions. Impression: No acute intracranial abnormalities. Images personally reviewed, interpreted and dictated by Sarwat Santos M.D. XR FEMUR RIGHT [[id number]] Collected: 09/16/231653 Order Status: Completed Updated: 09/16/231657 Narrative: RIGHT FEMUR SERIES HISTORY: Chronic right leg pain. COMPARISON: None. FINDINGS: A two view exam demonstrates no acute fracture or dislocation. The joint spaces appear unremarkable. No soft tissue abnormality is seen. Impression: No acute bony abnormality. LEFT FEMUR SERIES HISTORY: Chronic left leg pain. COMPARISON: None. FINDINGS: A two view exam demonstrates no acute fracture or dislocation. The joint spaces appear unremarkable. No soft tissue abnormality is seen. IMPRESSION: No acute bony abnormality. Images reviewed, interpreted, and dictated by Dr. Jairo Acosta. Transcribed by Susie House PA-C. XR FEMUR LEFT [[id number]] Collected: 09/16/231653 Order Status: Completed Updated: 09/16/231657 Narrative: RIGHT FEMUR SERIES HISTORY: Chronic right leg pain. COMPARISON: None. FINDINGS: A two view exam demonstrates no acute fracture or dislocation. The joint spaces appear unremarkable. No soft tissue abnormality is seen. Impression: No acute bony abnormality. LEFT FEMUR SERIES HISTORY: Chronic left leg pain. COMPARISON: None. FINDINGS: A two view exam demonstrates no acute fracture or dislocation. The joint spaces appear unremarkable. No soft tissue abnormality is seen. IMPRESSION: No acute bony abnormality. Images reviewed, interpreted, and dictated by Dr. Jairo Acosta. Transcribed by Susie House PA-C. XR chest AP portable [[id number]] Collected: 09/16/23 110 Order Status: Completed Updated: 09/16/231105 Narrative: PORTABLE CHEST. 09/16/2023 7:55 AM HISTORY: Shortness of breath. COMPARISON: September 12, 2023. FINDINGS: The cardiac silhouette is normal in size. The mediastinum is unremarkable. The lungs are clear. There is no pneumothorax. Impression: No acute cardiopulmonary process. Images reviewed, interpreted, and dictated by Dr. Jairo Acosta. Transcribed by Jane Stephens PA-C. Scheduled Meds: ??? amLODIPine 2.5 mg Oral Daily 2.5 mg at 09/22/23 1149 ??? apixaban 10 mg Oral BID 10 mg at 09/22/23 0806 ??? aspirin 81 mg Oral Daily 81 mg at 09/22/23 1149 ??? busPIRone 5 mg Oral BID 5 mg at 09/22/23 1149 ??? [START ON 09/23/2023] escitalopram oxalate 10 mg Oral QAM ??? famotidine 20 mg Oral BID 20 mg at 09/22/23 0806 ??? gabapentin 100 mg Oral Every Night ??? multivitamin 1 tablet Oral Daily 1 tablet at 09/22/23 1149 ??? polyethylene glycol 3350 17 g Oral Daily 17 g at 09/21/23 1031 ??? senna-docusate 1 tablet Oral Every Night 1 tablet at 09/20/23 2046 ??? sodium chloride 1 g Oral Once ??? sodium chloride 1 g Oral Once Continuous Infusions: ??? sodium chloride 0.9% (NS) PRN Meds:. ??? acetaminophen ??? cloNIDine HCL ??? cyclobenzaprine ??? docusate sodium ??? hydrALAZINE ??? ipratropium-albuteroL ??? melatonin ??? ondansetron Or ??? ondansetron PF ??? oxyCODONE ??? polyethylene glycol 3350 ??? sodium chloride 0.9% (NS) Assessment and Plan Brief Hospital Course: No notes on file Acute metabolic encephalopathy, suspect delirium versus discontinuation syndrome as antidepressant has been held Restart SSRI CT head negative Schedule melatonin Sleep-wake precautions Hyponatremia, multifactorial with low serum osmolality, markedly elevated urine osmolality and low urine sodium. Resolved. HCTZ, PETROS inhibitor, SSRI held on admission Restart SSRI 09/21 BMP in a.m. Complicated UTI ID consult, greatly appreciate assistance recommendations Completed Doxy/ceftriaxone Continue monitor off antibiotics MDD/anxiety Restart Lexapro, BuSpar ?? HTN Discontinue PETROS, do not restart at discharge amlodipine ?? Mechanical ground-level fall Bilateral lower extremity weakness Fall precautions PT OT consult Neurology consult, greatly appreciate assistance recommendations Massive hematoma from fall requiring PRBC transfusion, subsequent rhabdo Ortho consult, signed off Hemoglobin has been stable Acute pain secondary to bruising from falls Stop narcotics Decrease gabapentin 100 mg nightly only Tylenol first-line Right lower extremity VTE, provoked Apixaban x 3 months then reimage PPI daily while on anticoagulation #Diet: Regular diet, 1200 mL fluid restriction #VTE Ppx: Apixaban #GI Ppx (if indicated): Pantoprazole #Code Status: DNR #Medical decision maker: Family #Dispo: Discharge was canceled due to increased confusion, suspect delirium. Patient is much bettertoday, anticholinergics, narcotics have been discontinued/dose decreased. Home meds have been restarted. #MDM for 09/22/23: jose francisco Rendon APRN Hospitalist [facility], [employer] Pager: Attending Dr. Eldon Mann Voice paraprofessional education assistant technology ([employer]) is used for dictation of this note and sound-alike words might be erroneously placed despite reviewing the note for accuracy. Errors in dictation mayreflect use of voice recognition software and not all errors in paraprofessional education assistant may have been detected prior to signing. DEDE RENDON APRN Cosigned by Eldon Mann MD at 09/29/2023 5:35 PM EDT * Meagan Rodriguez RN - 09/22/2023 11:39 AM EDT Discharge Plan Progress Note CM spoke to Carlito with [facility]. Pt can go today if medically ready. Pt will require transport. Cm sent chat to JAYSHREE Becerra, to arrange for today if possible. Pt is medically ready. R# [phone], F# [phone]. Cm sent text to to do EMS DNR. Aw call back. Michelle Estrada p# [phone]. Transport is scheduled for Wednesday09/24/23 1330 via [facility]. Cm updated Dede Rendon APRN. CM updated nurse and Carlito with [facility]. Meagan Rodriguez RN * Sim Cole MD - 09/22/2023 9:32 AM EDT Images from the original note were not included. [facility] INFECTIOUS DISEASE PROGRESS NOTE Birgit Estrada 1950 [id number] Date of consult: 09/13/2023 Admit date: 09/12/2023 Requesting Provider: @[email or web address]@ Evaluating physician: Sim Cole MD Reason for Consultation: Acute bacterial cystitis Chief Complaint: Above Subjective History of present illness: Patient is a 73 y.o. Yr old female who is a poor historian with a history of essential hypertension, DJD, fell around 09/05/2023, sustaining increasing right hip pain, and was evaluated at an outside hospital and shown to have severe hyponatremia which was not improving. Patient also had a chest x-ray with possible opacity, with a normal CT scan negative for malignancy. CT scan of the head was unremarkable. Patient was transferred and admitted to [facility] on 09/12/2023. Urinalysis had significant pyuria at 11-20 WBCs but minimal symptoms. Right hip had noted hematoma likely relatedto her previous fall. Chest x-ray at [facility] was unremarkable. The patient was placedon piperacillin/tazobactam and doxycycline on 09/11. Duplex ultrasound was significant for right lower leg DVT in the peroneal and soleus veins. I was consulted on 09/13/2023 for further evaluation and treatment. No reported history of ill contacts, zoonotic exposures, TB, HIV, significant travel, immunocompromised state. 09/14/23 history reviewed. Difficulty with moving her right foot. Slightly confused. No high fever. Tolerating antibiotics. 09/15/23 history reviewed. Feels better. Slightly less confused. Tolerating antibiotics. No high fever. 09/16/23 hx rev. No high fever. Keena abx. No pain. Urine and blood cx neg. 09/17/2023 history reviewed. No high fever. Slow improvement. 09/20/2023 history reviewed. No high fevers or chills. Feels better. 09/21/23 history reviewed. The patient was getting ready to transfer to skilled facility. Became acutely more confused and noncommunicative. No high fever. 09/22/23 history reviewed. Less confused. No high fever. Off antibiotics since 09/21. Past Medical History: Diagnosis Date ??? Arthritis ??? Hypertension Past Surgical History: Procedure Laterality Date ??? CHOLECYSTECTOMY ??? TONSILLECTOMY ??? TUBAL LIGATION Pediatric History Patient Parents ??? Not on file Other Topics Concern ??? Not on file Social History Narrative ??? Not on file Negative for cigarettes, alcohol, or drug use family history is not on file. Reviewed and unremarkable No Known Allergies Immunization History Administered Date(s) Administered ??? COVID-19 VACCINE MODERNA (SPIKEVAX) 12 YRS + ([id number]) 05/18/2023 ? ? COVID-19 VACCINE MRNA (MODERNA/BIVALENT)(DARK BLUE CAP W/DOAN)([id number] & [id number]) 03/10/2022 ??? Covid-19 Vaccine MRNA (PF) 18yr+ (Moderna)([id number]) 07/18/2020, 08/15/2020, 02/27/2021, 11/04/2021 Medication: @Scheduled Meds: ??? apixaban 10 mg Oral BID 10 mg at 09/22/23 0806 ??? famotidine 20 mg Oral BID 20 mg at 09/22/23 0806 ??? gabapentin 100 mg Oral TID 100 mg at 09/22/23 08 ??? polyethylene glycol 3350 17 g Oral Daily 17 g at 09/21/23 1031 ??? senna-docusate 1 tablet Oral Every Night 1 tablet at 09/20/23 2046 ??? sodium chloride 1 g Oral Once ??? sodium chloride 1 g Oral Once Continuous Infusions: ??? sodium chloride 0.9% (NS) PRN Meds:. ??? acetaminophen ??? cloNIDine HCL ??? cyclobenzaprine ??? docusate sodium ??? hydrALAZINE ??? ipratropium-albuteroL ??? melatonin ??? morphine ??? ondansetron Or ??? ondansetron PF ??? oxyCODONE ??? polyethylene glycol 3350 ??? sodium chloride 0.9% (NS) Please refer to the medical record for a full medication list Review of Systems: Constitutional-- No Fever, chills or sweats. Appetite fair, and no malaise. Some fatigue. HEENT-- No new vision, hearing or throat complaints. No epistaxis or oral sores. Denies odynophagiaor dysphagia. No odynophagia or dysphagia. No headache, photophobia or neck stiffness. CV-- No chest pain, palpitation or syncope Resp-- No SOB/cough/Hemoptysis GI- No nausea, vomiting, or diarrhea. No hematochezia, melena, or hematemesis. Denies jaundice or chronic liver disease. -- No dysuria, hematuria, or flank pain. Denies hesitancy, urgency. Occasional frequency. Lymph- no swollen lymph nodes in neck/axilla or groin. Heme- No active bruising or bleeding; no Hx of DVT or PE. MS-- no swelling or pain in the bones or joints of arms/legs, except right hip as per HPI. No new back pain. Neuro-- No acute focal weakness or numbness in the arms or legs. No seizures. Except right foot with some foot drop. Skin--No rashes or lesions. No nodules. Physical Exam: Vital Signs Temp: [98.1 ??F (36.7 ??C)-99.5 ??F (37.5 ??C)] 98.2 ??F (36.8 ??C) Pulse: [85-104] 97 Resp: [16-18] 18 BP: (133-170)/(55-73) 133/55 Blood pressure 133/55, pulse 97, temperature 98.2 ??F (36.8 ??C), temperature source Oral, resp. rate 18, height 1.6 m (5' 3 ), weight 48.5 kg (107 lb), SpO2 100 %. GENERAL: More alert, in moderate distress. Appears older than stated age. Resting in bed. HEENT: Normocephalic, atraumatic. Oropharynx without thrush. Dentition in fair repair. No cervical adenopathy. No neck masses. Ears externally normal, Nose externally normal. Trachea midline. EYES: No conjunctival injection. No icterus. EOM full. LYMPHATICS: No lymphadenopathy of the neck or axillary or inguinal regions. HEART: No murmur, gallop, or pericardial friction rub. Reg rate rhythm. LUNGS: Clear to auscultation and percussion. No respiratory distress, no use of accessory muscles. No rales or rhonchi. No wheezes. ABDOMEN: Soft, nontender, nondistended. No appreciable HSM. Bowel sounds normal. SKIN: Warm and dry without cutaneous eruptions. No nodules. Right hip hematoma noted. No surrounding crepitus or bullae. PSYCHIATRIC: Mental status with less confusion. EXT: No cellulitic change. Normal ROM. NEURO: Oriented to name, right foot drop Results Review: I reviewed the patient's new clinical results. Recent Labs Lab(s) Units 09/22/23 0322 09/21/23 0234 09/20/23 0229 WBC K/??L 12.4* 12.6* 13.1* 13.4* HGB GM/DL 7.3* 7.5* 7.9* 7.7* HCT % 22.0* 22.8* 23.5* 22.5* PLT K/CU MM 243 251 272 240 Recent Labs Lab(s) Units 09/22/23 0322 NA meq/L 133* K meq/L 4.7 CL meq/L 103 CO2 meq/L 27 BUN mg/dL 24* CREATININE mg/dL 0.65 GLUCOSE mg/dL 105 CALCIUM mg/dL 8.7 Recent Labs Lab(s) Units 09/22/23 0322 ALKPHOS U/L 43 BILITOT mg/dL 1.0 ALT U/L 81* AST U/L 32 No results for input(s): SEDRATE in the last 168 hours. No results for input(s): CRP in the last 168 hours. No results for input(s): VANCOTROUGH , VANCORANDOM in the last 168 hours. No results for input(s): LACTATE in the last 168 hours. Estimated Creatinine Clearance: 38.4 mL/min (by C-G formula based on SCr of 0.65 mg/dL). @LABRCNTIP (cpk,ast,alt,alkaline phosphatase)@ Microbiology: Microbiology Results (last 7 days) Procedure Component Value Units Date/Time Blood Culture [[id number]] Collected: 09/19/23 1137 Order Status: Completed Specimen: Blood Updated: 09/21/23 1600 Result No growth in 48 hours Blood Culture Arm, Right Lower [[id number]] Collected: 09/19/23 1146 Order Status: Completed Specimen: Blood from Arm, Right Lower Updated: 09/21/23 1600 Result No growth in 48 hours Blood Culture Antecubital, Right [[id number]] Collected: 09/12/23 1806 Order Status: Completed Specimen: Blood from Antecubital, Right Updated: 09/18/23 0101 Result No growth in 5 days Blood Culture Forearm, Left [[id number]] Collected: 09/12/23 1814 Order Status: Completed Specimen: Blood from Forearm, Left Updated: 09/18/23 010 Result No growth in 5 days Radiology: Radiology Results (last 3 days) Procedure Component Value Units Date/Time CT brain without IV contrast [[id number]] Collected: 09/21/231821 Order Status: Completed Updated: 09/21/231824 Narrative: CT HEAD WITHOUT IV CONTRAST 09/21/2023 6:00 AM HISTORY: Mental status change, unknown cause TECHNIQUE: Multiple axial CT images were performed from the foramen magnum to the vertex. Coronal reformatted images were reconstructed from axial data set. Individualized dose reduction techniques using automated exposure control or adjustment of mA and/or kV according to the patient size were employed. COMPARISON: CT 09/13/2023, MRI 09/16/2023 FINDINGS: No acute intracranial hemorrhage or large acute cortical infarct. Chronic small vessel ischemic white matter changes and generalized cerebral volume loss are present. Ventricles are mildly prominent. No midline shift. The basal cisterns are patent. No skull fracture. The visualized paranasal sinuses and mastoid air cells are clear. Impression: No acute intracranial hemorrhage or large acute cortical infarct. Images personally reviewed, interpreted and dictated by Sarwat Santos M.D. . IMPRESSION: 1. Pyuria with possible acute bacterial cystitis. Urine culture from 09/11 negative. Partially treated. Clinically resolved. 2. Right hip hematoma after fall 09/05/2023. X-ray without fracture on 09/15. Right psoas muscle with intramuscular hematoma from CT abdomen and pelvis 09/13. 3. Right sternocleidomastoid muscle loculated signal, potential hematoma seen on MRI 09/16. 4. Reported chest x-ray infiltrate resolved. Could have had atelectasis, and is at risk for pulmonary embolus given demonstration of new DVT. CT scan of the abdomen and pelvis with basilar infiltrate. 5. DVT right lower leg soleus and peroneal veins positive duplex 09/13/2023. 6. Leukocytosis, neutrophilic related to above issues. Minor and improved. Previously related to cystitis versus other including noninfectious reasons with her hematomas from fall. Blood cultures x 2from 09/11 negative. 7. Hyponatremia related to above issues, medications, possible SIADH, versus other. 132. Ongoing. 8. Anemia, related to above issues and right hip hematoma. Slightly worse. 9. Hypocalcemia 8.0. 10. Elevated transaminase with ALT 213, ongoing, AST 308, ongoing, total bilirubin 0.9, alkaline phosphatase 45. Reportedly CT scan abdomen and pelvis at outside hospital without significant pathology. May need to repeat ultrasound versus other. Likely also related to muscle injury. 11. Rhabdo, CK 2217, ongoing. Related to her recent fall and trauma to leg. 12. Encephalopathy, toxic and metabolic. MRI brain without intracranial abnormalities from 09/16. Worse on 09/20. Likely metabolic related to medications. Improved on 09/21 with decrease of gabapentin dose. PLAN: 1. Diagnostically, continue to follow patient's physical exam, CBC, CMP, CRP. 2. Therapeutically, stopped doxycycline and ceftriaxone on 09/19 and reassess. Cultures were negativeon this admission. Continue to follow off antibiotics. This provided coverage for possible pneumonia or urinary tract infection. The patient is at risk for developing infections of her various hematomas. So far nontoxic though. 3. Supportive care. Room air on 09/13/2023. Orthopedics, nephrology, neurology evaluating. I discussed the patient's findings and my recommendations with the patient and nursing. Thank you for asking me to see Birgit Sean. Our group would be pleased to follow this patient over the course of their hospitalization and assist with outpatient antimicrobial therapy, as indicated. Further recommendations depend on the results of the cultures and clinical course. Increased riskfor adverse drug reactions, complications of IV access, need for surgery, readmission. I prev discussed with the patient's son, and the patient's daughter. Discussed with Dr. Mccarty 09/20. Sim Cole MD 09/22/2023 * Haven Mooney MD - 09/22/2023 7:05 AM EDT Subjective: Seen and examined at bedside. No acute events overnight. No new complain No CP, SOA, N/V, fever, chills or rash Objective: Blood pressure 138/69, pulse 85, temperature 98.2 ??F (36.8 ??C), temperature source Oral, resp. rate 18, height 1.6 m (5' 3 ), weight 48.5 kg (107 lb), SpO2 100 %. Intake/Output Summary (Last 24 hours) at 09/22/2023 0705 Last data filed at 09/21/20231999 Gross per 24 hour Intake 240 ml Output 800 ml Net -560 ml 09/20 699 - 09/21 0659 In: 240 [P.O.:240] Out: 800 [Urine:800] Physical Exam: Gen: Alert, NAD HEENT: NC, AT Neck: Supple, no JVD Lungs: CTA. Non labored, symetrical chest expansion CVS: SI/S2 audible. RRR, No M/G noted Abd: soft, NT, ND, BS + Ext: + Pedal edema , no cyanosis UG DESIGNER: Alert, No focal deficit noted grossly Psy: Cooperative Labs: Recent Labs Lab(s) Units 09/22/23 0322 09/21/23 0234 09/20/23 022 WBC K/??L 12.4* 12.6* 13.1* 13.4* HGB GM/DL 7.3* 7.5* 7.9* 7.7* PLT K/CU MM 243 251 272 240 Recent Labs Lab(s) Units 09/22/23 0322 09/21/23 0235 09/20/23 0229 09/19/23 1137 09/17/23 0812 09/17/23 0409 NA meq/L 133* 132* 130* 130* < > 131* 131* K meq/L 4.7 4.5 4.4 4.7 < > 3.8 CL meq/L 103 99* 98* 97* < > 97* CO2 meq/L 27 29 27 29 < > 29 BUN mg/dL 24* 27* 26* 26* < > 20 CREATININE mg/dL 0.65 0.63 0.76 0.80 < > 0.68 CALCIUM mg/dL 8.7 8.7 8.5 8.7 < > 7.9* ALBUMIN g/dL 2.5* -- -- -- -- 2.2* < > = values in this interval not displayed. A/P: 1- Hyponatremia- Asymptomatic - 119 at presentation at OSH. 121 at H.-Urine osmolarity 892, urinesodium less than 15, serum osmolarity 261. At home on HCTZ - Improving - 133 today 2- Hypertension 3- Right hip hematoma 4- Right lower extremity DVT. 5- Anemia 6- Elevated liver enzymes -improving. ?? Plan: - Fluid restriction 1.5 lit/day - No HCTZ at discharge - lasix as needed Haven Mooney MD 09/22/23 2:31 PM * Nathaniel Wakefield MD - 09/21/2023 5:38 PM EDT Subjective Since I saw the patient yesterday, the following has happened: 1) the patient tells me the patient's pain in her lower extremities is still improved. Dr. Mccarty has decreased the patient's Neurontin from 300 mg 3 times a day to 100 mg 3 times a day because of some reported confusion today. The patient is still ordered oxycodone 5 mg 4 hours as needed for pain. She has not received any oxycodone since September 18. She has not received any as needed morphine since September 17. 2) patient tells me her legs are about the same as they were as yesterday. Physical therapy worked with the patient today and noted the following: Functional Mobility Bed Mobility: Supine to Sit: moderate assistance, 1-person assist Sit to Supine: moderate assistance, 1-person assist ?? Transfers Not tested due to medical condition or safety ?? Gait Not safe to attempt due to medical condition or safety ?? Stair Management Not safe to attempt due to medical condition or safety ?? Wheelchair Mobility Not safe to attempt due to medical condition or safety 3) she is no longer on Lasix for the hyponatremia. Dr. Mooney has now placed the patient on sodium chloride 1 g disintegrating tablets once a day. She received a dose of this yesterday. Her sodium today is 132. 4) patient still notes that the swelling in her lower extremities has decreased. She currently has JAMEY hose on both lower extremities and Multi-Podus boots. 5) 4)on September 12, the attending Dr. Mccarty?ordered a venous ultrasound of her lower extremities (I assume to try to find a source of pain and swelling in her lower extremities). ?? This study done on September 12 did show a DVT in the right peroneal vein and soleal vein that appeared acute. ?? When Dr. Mccarty??first found out about the DVT in the right lower extremity, he initially considered ordering an IV heparin drip but decided against this given the patient's extensive ecchymoses in her proximal legs. ?? On September 12, Dr. Mccarty?? did consult the vascular surgery service given the DVT and the concern for potential risk of anticoagulation. ?? Dr. Cadet of the vascular surgery service on September 12 however felt that the potential benefits of anticoagulation given the right lower extremity outweighed the risk of worsening ecchymoses and therefore the vascular surgery service started the patient on therapeutic Lovenox on September 12 at 50 mg twice a day for which she was still receiving until today. ?? On September 15??, I did speak to one of the physician extenders on the vascular surgery service who tells me that their service would be happy to place??an IVC filter if a clinical decision was made that the potential risk of anticoagulation outweighed??the benefit. ?? 6) yesterday I had a discussion with the attending, Dr. Mccarty to discuss the risk and benefits of continuing anticoagulation versus stopping anticoagulation and having an SCD filter placed. Dr. Mccarty told me he felt that the potential benefits of anticoagulation outweighed the risk and therefore I started the patient on Eliquis and stopped Lovenox. I think this is a reasonable decision. On September 16 her hemoglobin had dropped to 6.9 and she received a transfusion. ?? On September 17 her hemoglobin was 8.1 with a hematocrit of 23.3. ?? On September 18 her hemoglobin was 8.2 with a hematocrit of 24.8. ?? On September 19, her hemoglobin is 7.7 with a hematocrit of 22.5. Today her hemoglobin is 7.9 with a hematocrit of 23.5. Current Facility-Administered Medications: ??? acetaminophen (TYLENOL) tablet 650 mg, 650 mg, Oral, Q6H PRN ??? apixaban (ELIQUIS) tablet 10 mg, 10 mg, Oral, BID ??? cloNIDine HCL (CATAPRES) tablet 0.1 mg, 0.1 mg, Oral, Q8H PRN ??? cyclobenzaprine (FLEXERIL) tablet 10 mg, 10 mg, Oral, TID PRN ??? docusate sodium (COLACE) capsule 100 mg, 100 mg, Oral, BID PRN ??? famotidine (PEPCID) tablet 20 mg, 20 mg, Oral, BID ??? gabapentin (NEURONTIN) capsule 100 mg, 100 mg, Oral, TID ??? hydrALAZINE (APRESOLINE) injection 10 mg, 10 mg, Intravenous, Q4H PRN ??? ipratropium-albuteroL (DUO-NEB) 0.5-2.5 (3) mg/3 mL nebulizer solution 3 mL, 3 mL, Nebulization, Q4H PRN ??? melatonin tablet 6 mg, 6 mg, Oral, Every Night PRN ??? morphine injection 2 mg, 2 mg, Intravenous, Q4H PRN ??? ondansetron (ZOFRAN-ODT) disintegrating tablet 4 mg, 4 mg, Oral, Q8H PRN OR ondansetron PF (ZOFRAN) injection 4 mg, 4 mg, Intravenous, Q8H PRN ??? oxyCODONE (ROXICODONE) immediate release tablet 5 mg, 5 mg, Oral, Q4H PRN ??? polyethylene glycol (GLYCOLAX) packet 17 g, 17 g, Oral, Daily PRN ??? polyethylene glycol (GLYCOLAX) packet 17 g, 17 g, Oral, Daily ??? senna-docusate (SENOKOT S) tablet 8.6-50 mg, 1 tablet, Oral, Every Night ??? Insert Peripheral IV, , , Once AND Saline Lock IV, , , Once AND sodium chloride 0.9% (NS) flush 10 mL, 10 mL, Intravenous, PRN ??? [COMPLETED] Prepare RBC: 1 Units, Leukoreduced, , , Once AND Transfuse RBC: 1 Units, Leukoreduced, , Intravenous, Transfusion AND sodium chloride 0.9% (NS) infusion, 250 mL, Intravenous, Once ??? sodium chloride disintegrating tablet 1 g, 1 g, Oral, Once ??? sodium chloride disintegrating tablet 1 g, 1 g, Oral, Once Review of Systems -she is using a pure wick for urination. Objective Last Recorded Vitals Blood pressure (!) 159/64, pulse 101, temperature 99.5 ??F (37.5 ??C), resp. rate 16, height 1.6 m (5' 3 ), weight 48.5 kg (107 lb), SpO2 98 %. Physical Exam When I started talking to the patient she f started rambling about being at home but when asked orientation questions she knew where we were and what the month and the year was. She follows commands. She had roughly 1-2 out of 5 strength in both hip flexors and 2 out of 5 strength in her knee flexors. Labs: Results for orders placed or performed during the hospital encounter of 09/12/23 (from the past 24 hour(s)) CBC - Hemogram (SJ-BKR) Status: Abnormal Collection Time: 09/21/23 2:34 AM Result Value Ref Range WBC 13.1 (H) 4.0 - 10.0 K/??L RBC 2.55 (L) 3.93 - 5.22 M/??L Hemoglobin 7.9 (L) 11.2 - 15.7 GM/DL Hematocrit 23.5 (L) 34.1 - 44.9 % MCV 92 79 - 95 fL MCH 31.0 25.6 - 32.2 pg MCHC 33.6 32.2 - 35.5 GM/DL RDW 15.3 (H) 11.7 - 14.4 % Platelets 272 140 - 375 K/CU MM MPV 10.0 9.4 - 12.3 fL Basic Metabolic Panel Status: Abnormal Collection Time: 09/21/23 2:35 AM Result Value Ref Range Sodium 132 (L) 136 - 146 meq/L Potassium 4.5 3.5 - 5.1 meq/L Chloride 99 (L) 102 - 112 meq/L CO2 29 21 - 32 meq/L Anion Gap 9 9 - 20 BUN 27 (H) 7 - 22 mg/dL Creatinine 0.63 0.55 - 1.02 mg/dL BUN/Creatinine 43 (H) 8 - 20 Glucose 116 (H) 74 - 106 mg/dL Calcium 8.7 8.4 - 10.1 mg/dL Osmolality Calc 270.6 eGFR (mL/min/1.73m2) >60 >=60 mL/min/1.73m2 Blood gas, arterial Status: Abnormal Collection Time: 09/21/23 5:05 PM Result Value Ref Range pH, Arterial 7.48 (H) 7.35 - 7.45 pCO2, Arterial 38 35 - 45 mm Hg pO2, Arterial 76 (L) 80 - 100 mm Hg HCO3, Arterial 28 (H) 20 - 26 mmol/L Base Excess, Arterial 4.3 (H) -2.0 - 2.0 mmol/L O2 Sat, Arterial 97.0 95.0 - 100.0 % CTO2 ARTERIAL 12.6 mmol/L THB ARTERIAL 9.5 (L) 12.0 - 18.0 g/dL PaO2/FIO2 calculated 361.0 [facility] COLLECTION SITE Right Radial Arterial Puncture Yes Blood Gas PT Temperature C 37.0 Marques's Test Acceptable ABG Number of Draw Attempts 1 Performed by: jenny deshpande FIO2 21.0 Blood Gas Temperature Corrected Results No No CT ABDOMEN/PELVIS WITHOUT IV CONTRAST Standard Protocol Narrative: CT SCAN OF THE ABDOMEN AND PELVIS WITHOUT CONTRAST; 09/18/2023 1:26 PM HISTORY: Right psoas hematoma. COMPARISON: September 14, 2023. PROCEDURE: Axial images were obtained from the lung bases to the pubic symphysis by computed tomography. This study was performed with techniques to keep radiation doses as low as reasonably achievable, (ALARA). Individualized dose reduction techniques using automated exposure control or adjustment of mA and/or kV according to the patient size were employed. FINDINGS: ABDOMEN: A 5 mm nodule in the right middle lobe is stable. There are moderate bilateral pleural effusions. There is bibasilar consolidation. The gallbladder is absent. There is mild right hydronephrosis. There is no nephrolithiasis. The left kidney is unremarkable. There is extensive stool throughout the colon. PELVIS: Anasarca is noted. There is trace ascites. The urinary bladder is unremarkable. There is fecal impaction in the rectal vault. Impression: Pleural effusions and bibasilar consolidation, probably secondary to pneumonia. Follow-up to complete resolution recommended. Mild right hydronephrosis of uncertain etiology. Constipation. Images reviewed, interpreted, and dictated by Jairo Acosta MD Assessment Birgit Estrada is a 73-year-old female with hypertension and depression who was transferred to our hospital on September 11 from the inpatient service at [facility] fpr further evaluation of hyponatremia after a September 04 fall at home . In talking with the son, the patient fell down on September 04 at home while trying to help her (who has Lewy body disease) change clothes. A couple hours after falling on September 04, she complained of hip pain and was taken to [facility] ER and released home after several x-rays were done. According to the records at [facility] during that emergency room visit her sodium level was 130. After being released from [facility] emergency room on September 05, the son has told me that the patient continued to have severe hip pain and was having nausea and anorexia at home from September 04through September 06. Due to the continued hip pain and the nausea, the son has told me the patient was taken back to [facility] emergency room apparently on the late evening of September 07. According to the son, the patient walked into [facility] emergency room on September 07 and according to the records was found to have a sodium level of 122 at that time. She was thus admitted to [facility] around the late night of September 07 at the skating rink ice maker of September 08. According to the son for the first few days at [facility] the patient was walking with a walker but then he noticed that the patient was staying in bed on September 10 and the patient has been complaining of severe hip pain and leg weakness since that time. According to the records her sodium at [facility] was 122 on September 08, 120 on September 09 and 119 on September 11. According to the records at [facility], her medications prior to admission were BuSpar 20 mgtwice a day, result 20 mg a day, benazepril 40 mg twice a day, multivitamin once a day, amlodipine 2.5 mg a day, hydrochlorothiazide 25 mg a day, and escitalopram 5 mg a day. As stated above she was transferred to our hospital on September 11 largely for persistent hyponatremiaand as written above in my note the patient's sodium level on presentation here on September 11 was only 121. Since being transferred here on September 11 , there have been several medical issues that are being worked on at once. The patient's hyponatremia has been a persistent issue. From September 13 until September 17 her serum sodium was checked by the lab every 4 hours. With the use of IV albumin (she received a dose on September 14 and September 16), the use of IV Lasix (she has been on Lasix 20 mg twice a day since September 13), holding her home hydrochlorothiazide, her sodium level has started to go up close to normal levels over the last 2 days. On September 15 her sodium got up to 128 and on September 16 it was 130 and today it is still 132 . Believe she is on fluid restrictions as well. Today the IV Lasix has been stopped and oral sodium chloride is being used. Another persistent issue has been leg swelling and leg pain along with severe bilateral leg weakness which is prohibiting her to ambulate and move about. I was asked to see her on September 12 for the leg weakness and she has had severe pitting edema and anasarca of her lower extremities. However over the last 4 days the pitting edema and anasarca have improved with the use of Lasix and/or getting her sodium increased. She also had JAMEY hose, SCDs and Multi-Podus boots which all may be helping with the swelling in herlower extremities. For the SCDs have been removed over the last 2 days. However her legs remained very weak. However since September 17, she is starting to get some mild improvement in her leg strength. She has extensive ecchymoses in her proximal thighs. As part of the workup for leg weakness I did do MRIs of her spine and brain which showed no cause for her leg weakness. I did do a CT scan of her abdomen and pelvis looking for a retroperitoneal hematoma on September 13. This study suggested a possible area of hemorrhage in the right psoas muscle but I do not think this would be causing all of her symptoms. The radiologist also made note on the CT scan of her abdomen and pelvis that there is extensive anasarca particularly in the pelvis. Another issue has been the discovery of a right lower extremity DVT in her right peroneal vein and soleal vein that was picked up on a venous ultrasound on September 12. Due to this finding the patient madhu therapeutic Lovenox from September 12 through today. Today the Lovenox has been changed to Eliquis. Patient has been anemic since transfer here. Her hemoglobin on September 11 the time of transfer was 8.5 with a hematocrit of 23.6. On September 16 however her hemoglobin had dropped to 6.9 and her hematocrit had dropped to 20.3. Therefore on September 16 she received a blood transfusion. I have also noted this admission that the patient has had an elevated CK. No CKs were checked at [facility] but her CK was elevated at 3300 on September 14 and the CK has improved to 1200 by September 16. On September 18 her CK had continue to improve to 538. A vitamin B12 and folate level are normal. She does have extensive bruising of her bilateral posterior thighs which I assume is from the fall of September 04 . I did repeat a CT scan of her abdomen and pelvis on September 17 out of concern of the dropping hemoglobin on September 16 and the possible right psoas hemorrhage on the CAT scan of September 13. This study showed the followin) Pleural effusions and bibasilar consolidation, probably secondary to pneumonia. Follow-up to complete resolution recommended. ??2) Mild right hydronephrosis of uncertain etiology. ??3) Constipation. 4) Anasarca is noted. ?? The differential for her bilateral leg weakness and pain could include one or combination of the followin) injury to the lumbar sacral plexus and/or injury to the sciatic nerves (and/or femoral nerves) from the fall of September 04 and/or resulting swelling and anasarca. 2) rhabdomyolysis and/or myopathy-her elevated CK noted on September could be a sign that she may have suffered from rhabdomyolysis at some point in time. 3) Manifestation of her hyponatremia. I have found a couple case reports of hyponatremia causing rhabdo myelolysis. 5) Vasculitis. At this time I do not know the exact etiology of her bilateral leg weakness and pain and there are multiple potential causes. However, I am encouraged that her leg weakness is starting to improve with reducing the leg swelling and anasarca in her legs as well as improving the sodium level. The use of compression stockings may be helping as well. I am keeping an open mind on this case but I am suspicious that the majority of her symptoms and signs in her lower extremity may be due to rhabdomyolysis and/or swelling and anasarca. As above I have found some case reports of hyponatremia causing rhabdomyolysis. At this time, I recommend the following: ?? 1) At discharge she should follow-up with an outpatient neurologist not drive until released by physician. If her leg weakness persists she may eventually need an EMG/nerve conduction study of her lower extremities as an outpatient. 2) Given the drop in hemoglobin of September 16 requiring a blood transfusion as well as her persistent anemia, to continue weighing the risk and benefits of continuing anticoagulation for her recently discovered right lower extremity DVT. However at this time I agree with Dr. Mccarty's judgment that thepotential benefits of anticoagulation outweigh the risk. 3) I am going to continue her Neurontin at 100mg tid. I agree with Dr. Mccarty's move to decrease the dose of this medicine given some confusion today. 4) continue treating underlying medical conditions as you are. 5) I agree with physical therapy. 6) I agree with medical maneuvers to try to normalize her sodium and/or decrease lower extremity swelling and/or anasarca. 7) continue JAMEY hose which I think are both helping with the lower extremity swelling. I also agreewith the Multi-Podus boots. I note that the SCDs have recently take been taken off the patient. Shemay eventually need these back as well. 8) if it is ever decided that the risk of anticoagulation outweigh the benefits, we may need to reconsult vascular surgery to consider an IVC filter for her right lower extremity DVT. 9) as part of a workup for a myopathy and/or rhabdomyolysis, I have considered ordering an MRI of her thigh. However as she is getting better and her CK levels are dropping I suspect this test would be low yield. 10) patient may eventually need follow-up for the small pleural effusions and mild right hydronephrosis seen on her two CAT scans of the abdomen and pelvis here. 11) given her persistent anemia, the frequent blood draws she has had since September 05 and the extensive ecchymoses in her legs, I am going to send off some iron studies to see if she has iron deficiency. I will continue to follow intermittently with you. Plan * Lars Leos RN - 09/21/2023 11:41 AM EDT Care Coordination Final Discharge Plan Final Discharge Plan PCP referral provided? Community Referral Discussed with patient: (P) Yes Patient Appealing Discharge: (P) No Does the patient have ability to fill and recive their discharge medications? (P) (Meds to beds) Patient returning to prior living situation: (P) No Support Systems: (P) Family members Discharge Disposition: (P) SNF Services Arranged for Discharge: Contact information for follow-up Junior Helio MD Specialty: Vascular Surgery, Surgery, General Surgery [address] [facility] [id number] Next Steps: Go on 12/13/2023 Instructions: follow-up on 12/13/23, 11 am with right lower extremity venous duplex Aurelia Luke APRN Specialty: Neurology, Nurse Practitioner [address] [facility] [address] [facility] [id number] Next Steps: Go in 1 month(s) Instructions: Neurology follow up 10/19/23 @10:30am. The office will be mailing you paperwork. Please fill it out and bring it with you to your appointment. [facility] Specialty: [facility] [address] [facility] [address] [address] Next Steps: Follow up Transporation Provider: (Sharita) [employer] Contact Name: Transportation Provider Phone: Date of casting and pasting supervisor: (P) 09/21/23 Time of casting and pasting supervisor: (P) 1300 Lars Leos RN * Oskar Marin, PT - 09/21/2023 10:52 AM EDT Images from the original note were not included. Inpatient Physical Therapy Treatment Patient Name: Birgit Estrada Date of : 1950 Date of Treatment: 09/21/23 Start Time 1013 Stop Time 1052 Session Duration 39 minutes General Visit Type: Treatment Approved by: Nurse Dillard Patient Disposition Upon Entry: Supine in bed, Call Light/Pull Cord in reach, All needs met and within reach, Nursing aware/notified Patient Verified By: Name and Date of Precautions Weight-Bearing Status: Weight Bearing As Tolerated (WBAT), RLE Precautions: Fall risk, Bilat Poddus Boots on feet Isolation Precautions: Standard Subjective Subjective: Patient agreeable to physical therapy treatment. Pain Yes. 0-10 SCALE Pain location: BLE 4/10 Cognition Overall cognitive status: WFL Orientation Level: Oriented x4 Objective Functional Mobility Bed Mobility: Supine to Sit: moderate assistance, 1-person assist Sit to Supine: moderate assistance, 1-person assist Transfers Not tested due to medical condition or safety Gait Not safe to attempt due to medical condition or safety Stair Management Not safe to attempt due to medical condition or safety Wheelchair Mobility Not safe to attempt due to medical condition or safety AM-PAC Basic Mobility Inpatient Short Form How much difficulty does the patient currently have: Turning over in bed (including adjusting bedclothes, sheets, and blankets)? (1) Total/Unable (not able to do the activity or can only perform the activity using assistive devices or requires assistance from another person, including supervision or cueing for safety) Sitting down on and standing up from a chair with arms (e.g., wheelchair, bedside commode, etc.)? (1) Total/Unable (not able to do the activity or can only perform the activity using assistive devices or requires assistance from another person, including supervision or cueing for safety) Moving from lying on back to sitting on side of bed? (1) Total/Unable (not able to do the activity or can only perform the activity using assistive devices or requires assistance from another person,including supervision or cueing for safety) How much help from another person does the patient currently need: Moving to and from a bed to a chair (including a wheelchair)? (2) A lot (Maximal/Moderate assist) Need to walk in hospital room? (2) A lot (Maximal/Moderate assist) Climbing 3-5 steps with a railing? (1) Total/Unable (Total assist/dependent) Score Raw score=8 t-Scale score=28.58 Standard error=4.04 CMS 0-100%=86.62% MDC=4.72 A raw score of >= 16 is significantly associated with increased odds of discharge to home in addition to consideration made for the patient's cognition and social determinants of health. Balance Static/dynamic sitting and static/dynamic standing balance grades Balance Grade Sitting Static Good - patient able to maintain balance without handhold support, limited postural sway Sitting Dynamic Good - patient accepts moderate challenge; able to maintain balance while picking object off floor Activity Tolerance Patient limited with activity/intervention due to pain Treatment Pt up to EOB as above and remained there for about 20 minutes while performing therapeutic activities such as repositioning self with cues only and then reaching tasks to correct midline balance. Pt with complaints about discomfort and pain throughout. RN present at end of session to administer pain meds and pt requests to lay back down. Further educated on course of care including progressing tostanding attempts soon. Assessment Pt displays good tolerance to activity at this time consider pain location. Will continue to monitor and progress towards goals while admitted to improve tolerance to functional activity, increase functional strength, and to decrease burden of care. Problems: Decreased functional mobility, Decreased strength, Decreased activity tolerance, Impairedsitting balance, Pain Rehab potential: Good for stated goals Plan Treatment plan: Continue per POC. PT Frequency/Duration: 5x/week for 14 days Recommendations Discharge recommendations: Patient would benefit from 3 hours of intensive multidisciplinary therapy per day to maximize functional outcomes and address functional limitations to return to highest level of functioning. DME recommendations:??no needs if discharging to rehab ?? Goals Supine to/from sit:??mod I with rail Sit to/from stand:??SBA with RWx Gait:??150 ft SBA with RWx Stair Negotiation:??1 stair, no rail min A Target Date:?09/27/2023 Progress towards goals: progressing Progress towards goals: progressing Education Patient educated on safety, use of call button, role of physical therapy, plan of care, ambulation,transfers, bed mobility, proper positioning and balance required for functional mobility tasks, need for assistance and risk for falls and following, they were able to verbalize understanding. No further questions or concerns stated. Patient Disposition Upon Leaving Supine in bed, Call Light/Pull Cord in reach, All needs met and within reach, Nursing aware/notified, Nursing at bedside If this patient discharges prior to next therapy session, this note serves as the patient's discharge summary. Electronically signed by Oskar Marin PT - 09/21/23 - 1:22 PM EDT * Cornelius Mccarty MD - 09/21/2023 9:44 AM EDT Subjective Awake No nausea or vomiting No fever Eating Moves Extremities bilateral Last Recorded Vitals Blood pressure (!) 148/66, pulse 84, temperature 97.3 ??F (36.3 ??C), temperature source Oral, resp. rate 18, height 1.6 m (5' 3 ), weight 48.5 kg (107 lb), SpO2 96 %. Physical Exam Head atraumatic normocephalic Pupils round and reactive Eyes no conjunctival injection or discharge Ears no discharge Nose no bleeding or discharge Mouth dry Neck supple forage of motion Chest diminished entry bilaterally no wheezes heart S1 and S2 healed regular rate Abdomen soft audible bowel sounds Extremities bilateral extremity edema with right hip discoloration Neurological patient alert awake move extremities Psychiatric anxiety Skin right hip area discoloration Labs: Results for orders placed or performed during the hospital encounter of 09/12/23 (from the past 24 hour(s)) CBC - Hemogram (SJ-BKR) Status: Abnormal Collection Time: 09/21/23 2:34 AM Result Value Ref Range WBC 13.1 (H) 4.0 - 10.0 K/??L RBC 2.55 (L) 3.93 - 5.22 M/??L Hemoglobin 7.9 (L) 11.2 - 15.7 GM/DL Hematocrit 23.5 (L) 34.1 - 44.9 % MCV 92 79 - 95 fL MCH 31.0 25.6 - 32.2 pg MCHC 33.6 32.2 - 35.5 GM/DL RDW 15.3 (H) 11.7 - 14.4 % Platelets 272 140 - 375 K/CU MM MPV 10.0 9.4 - 12.3 fL Basic Metabolic Panel Status: Abnormal Collection Time: 09/21/23 2:35 AM Result Value Ref Range Sodium 132 (L) 136 - 146 meq/L Potassium 4.5 3.5 - 5.1 meq/L Chloride 99 (L) 102 - 112 meq/L CO2 29 21 - 32 meq/L Anion Gap 9 9 - 20 BUN 27 (H) 7 - 22 mg/dL Creatinine 0.63 0.55 - 1.02 mg/dL BUN/Creatinine 43 (H) 8 - 20 Glucose 116 (H) 74 - 106 mg/dL Calcium 8.7 8.4 - 10.1 mg/dL Osmolality Calc 270.6 eGFR (mL/min/1.73m2) >60 >=60 mL/min/1.73m2 CT ABDOMEN/PELVIS WITHOUT IV CONTRAST Standard Protocol Narrative: CT SCAN OF THE ABDOMEN AND PELVIS WITHOUT CONTRAST; 09/18/2023 1:26 PM HISTORY: Right psoas hematoma. COMPARISON: September 14, 2023. PROCEDURE: Axial images were obtained from the lung bases to the pubic symphysis by computed tomography. This study was performed with techniques to keep radiation doses as low as reasonably achievable, (ALARA). Individualized dose reduction techniques using automated exposure control or adjustment of mA and/or kV according to the patient size were employed. FINDINGS: ABDOMEN: A 5 mm nodule in the right middle lobe is stable. There are moderate bilateral pleural effusions. There is bibasilar consolidation. The gallbladder is absent. There is mild right hydronephrosis. There is no nephrolithiasis. The left kidney is unremarkable. There is extensive stool throughout the colon. PELVIS: Anasarca is noted. There is trace ascites. The urinary bladder is unremarkable. There is fecal impaction in the rectal vault. Impression: Pleural effusions and bibasilar consolidation, probably secondary to pneumonia. Follow-up to complete resolution recommended. Mild right hydronephrosis of uncertain etiology. Constipation. Images reviewed, interpreted, and dictated by Jairo Acosta MD Assessment #1 hyponatremia Patient mid to the hospital from nephrology evaluation will check electrolytes start IV fluid CT of chest done with no apparent malignancy ?? 2 pneumonia patient already on IV Zosyn doxycycline breathing treatment oxygen cultures ordered ?? #3 dehydration patient started on IV fluid ?? #4 anxiety restart Xanax as needed ?? #5 hypertension start hydralazine as needed ?? #6 GI prophylaxis Pepcid ?? #7 right hip hematoma will consult Ortho start pain control ? #8 DVT prophylaxis 09/19/2023 Plan Altered mental status/acute encephalopathy Consult neurology Improving Lower extremity deep vein thrombosis Blood transfusion if needed Patient with pleural effusion No aggressive management Sodium level improving palliative care Patient will need placement when medically stable 09/21/2023 Patient has rhabdomyolysis which improving Need to be switched to oral anticoagulation Discharged on oral Eliquis monitoring globin and hematocrit May need inferior vena cava filter placement if cannot tolerate oral anticoagulation Hemoglobin is stable Discussed with Dr. Wakefield Labs reviewed sodium stable 09/21/2023 at 4:45 PM Daughter was concerned about her mom She is lethargic sleepy confused Were going to check blood gas CT of head Re schedule discharge to tomorrow afternoon Will adjust her medication decrease Neurontin dose Discharge Planning: Patient medically stable to be discharge Patient can be discharged in am to rehab case management following * Haven Mooney MD - 09/21/2023 9:37 AM EDT Subjective: Seen and examined at bedside. No acute events overnight. No new complain No CP, SOA, N/V, fever, chills or rash Objective: Blood pressure (!) 148/66, pulse 84, temperature 97.3 ??F (36.3 ??C), temperature source Oral, resp. rate 18, height 1.6 m (5' 3 ), weight 48.5 kg (107 lb), SpO2 96 %. Intake/Output Summary (Last 24 hours) at 09/21/2023 09 Last data filed at 09/20/2023 1600 Gross per 24 hour Intake -- Output 1300 ml Net -1300 ml 09/19 0700 - 09/20 0659 In: 240 [P.O.:240] Out: 1300 [Urine:1300] Physical Exam: Gen: Alert, NAD HEENT: NC, AT Neck: Supple, no JVD Lungs: CTA. Non labored, symetrical chest expansion CVS: SI/S2 audible. RRR, No M/G noted Abd: soft, NT, ND, BS + Ext: + Pedal edema , no cyanosis UG DESIGNER: Alert, No focal deficit noted grossly Psy: Cooperative Labs: Recent Labs Lab(s) Units 09/21/23 0234 09/20/23 0229 09/19/23 0240 WBC K/??L 13.1* 13.4* 15.7* HGB GM/DL 7.9* 7.7* 8.2* PLT K/CU MM 272 240 251 Recent Labs Lab(s) Units 09/21/23 0235 09/20/23 0229 09/19/23 1137 09/19/23 0240 09/17/23 0812 09/17/23 0409 NA meq/L 132* 130* 130* 130* < > 131* 131* K meq/L 4.5 4.4 4.7 5.0 < > 3.8 CL meq/L 99* 98* 97* 100* < > 97* CO2 meq/L 29 27 29 28 < > 29 BUN mg/dL 27* 26* 26* 27* < > 20 CREATININE mg/dL 0.63 0.76 0.80 0.80 < > 0.68 CALCIUM mg/dL 8.7 8.5 8.7 8.2* < > 7.9* ALBUMIN g/dL -- -- -- -- -- 2.2* < > = values in this interval not displayed. A/P: 1- Hyponatremia- Asymptomatic - 119 at presentation at [facility]. 121 at [facility].-Urine osmolarity 892, urinesodium less than 15, serum osmolarity 261. At home on HCTZ - Improving - 130 today 2- Hypertension 3- Right hip hematoma 4- Right lower extremity DVT. 5- Anemia 6- Elevated liver enzymes -improving. ?? Plan: - Fluid restriction - lasix 20 mg daily Haven Mooney MD 09/21/23 2:31 PM * Sim Cole MD - 09/21/2023 8:50 AM EDT Images from the original note were not included. [facility] INFECTIOUS DISEASE PROGRESS NOTE Birgit Estrada 1950 [id number] Date of consult: 09/13/2023 Admit date: 09/12/2023 Requesting Provider: @[email or web address]@ [facility] physician: Sim Cole MD Reason for Consultation: Acute bacterial cystitis Chief Complaint: Above Subjective History of present illness: Patient is a 73 y.o. Yr old female who is a poor historian with a history of essential hypertension, DJD, fell around 09/05/2023, sustaining increasing right hip pain, and was evaluated at an outside hospital and shown to have severe hyponatremia which was not improving. Patient also had a chest x-ray with possible opacity, with a normal CT scan negative for malignancy. CT scan of the head was unremarkable. Patient was transferred and admitted to [facility] on 09/12/2023. Urinalysis had significant pyuria at 11-20 WBCs but minimal symptoms. Right hip had noted hematoma likely relatedto her previous fall. Chest x-ray at [facility] was unremarkable. The patient was placedon piperacillin/tazobactam and doxycycline on 09/11. Duplex ultrasound was significant for right lower leg DVT in the peroneal and soleus veins. I was consulted on 09/13/2023 for further evaluation and treatment. No reported history of ill contacts, zoonotic exposures, TB, HIV, significant travel, immunocompromised state. 09/14/23 history reviewed. Difficulty with moving her right foot. Slightly confused. No high fever. Tolerating antibiotics. 09/15/23 history reviewed. Feels better. Slightly less confused. Tolerating antibiotics. No high fever. 09/16/23 hx rev. No high fever. Keena abx. No pain. Urine and blood cx neg. 09/17/2023 history reviewed. No high fever. Slow improvement. 09/20/2023 history reviewed. No high fevers or chills. Feels better. 09/21/23 history reviewed. The patient was getting ready to transfer to skilled facility. Became acutely more confused and noncommunicative. No high fever. Past Medical History: Diagnosis Date ??? Arthritis ??? Hypertension Past Surgical History: Procedure Laterality Date ??? CHOLECYSTECTOMY ??? TONSILLECTOMY ??? TUBAL LIGATION Pediatric History Patient Parents ??? Not on file Other Topics Concern ??? Not on file Social History Narrative ??? Not on file Negative for cigarettes, alcohol, or drug use family history is not on file. Reviewed and unremarkable No Known Allergies Immunization History Administered Date(s) Administered ??? COVID-19 2022- VACCINE MODERNA (SPIKEVAX) 12 YRS + ([id number]) 05/18/2023 ? ? COVID-19 VACCINE MRNA (MODERNA/BIVALENT)(DARK BLUE CAP W/DOAN)([id number] & [id number]) 03/10/2022 ??? Covid-19 Vaccine MRNA (PF) 18yr+ (Moderna)([id number]) 07/18/2020, 08/15/2020, 02/27/2021, 11/04/2021 Medication: @Scheduled Meds: ??? enoxaparin 50 mg Subcutaneous Q12H 50 mg at 04/08/24 2046 ??? famotidine 20 mg Oral BID 20 mg at 09/20/232045 ??? gabapentin 300 mg Oral TID 300 mg at 09/20/232045 ??? polyethylene glycol 3350 17 g Oral Daily 17 g at 09/20/23 0905 ??? senna-docusate 1 tablet Oral Every Night 1 tablet at 09/20/232045 ??? sodium chloride 1 g Oral Once Continuous Infusions: ??? sodium chloride 0.9% (NS) PRN Meds:. ??? acetaminophen ??? ALPRAZolam ??? cloNIDine HCL ??? cyclobenzaprine ??? docusate sodium ??? hydrALAZINE ??? ipratropium-albuteroL ??? melatonin ??? morphine ??? ondansetron Or ??? ondansetron PF ??? oxyCODONE ??? polyethylene glycol 3350 ??? sodium chloride 0.9% (NS) Please refer to the medical record for a full medication list Review of Systems: Constitutional-- No Fever, chills or sweats. Appetite fair, and no malaise. Some fatigue. HEENT-- No new vision, hearing or throat complaints. No epistaxis or oral sores. Denies odynophagiaor dysphagia. No odynophagia or dysphagia. No headache, photophobia or neck stiffness. CV-- No chest pain, palpitation or syncope Resp-- No SOB/cough/Hemoptysis GI- No nausea, vomiting, or diarrhea. No hematochezia, melena, or hematemesis. Denies jaundice or chronic liver disease. -- No dysuria, hematuria, or flank pain. Denies hesitancy, urgency. Occasional frequency. Lymph- no swollen lymph nodes in neck/axilla or groin. Heme- No active bruising or bleeding; no Hx of DVT or PE. MS-- no swelling or pain in the bones or joints of arms/legs, except right hip as per HPI. No new back pain. Neuro-- No acute focal weakness or numbness in the arms or legs. No seizures. Except right foot with some foot drop. Skin--No rashes or lesions. Physical Exam: Vital Signs Temp: [97.3 ??F (36.3 ??C)-98.2 ??F (36.8 ??C)] 97.3 ??F (36.3 ??C) Pulse: [57-96] 84 Resp: [18] 18 BP: (125-148)/(55-66) 148/66 Blood pressure (!) 148/66, pulse 84, temperature 97.3 ??F (36.3 ??C), temperature source Oral, resp. rate 18, height 1.6 m (5' 3 ), weight 48.5 kg (107 lb), SpO2 96 %. GENERAL: Lethargic and less responsive, in moderate distress. Appears older than stated age. Resting in bed. HEENT: Normocephalic, atraumatic. Oropharynx without thrush. Dentition in fair repair. No cervical adenopathy. No neck masses. Ears externally normal, Nose externally normal. Trachea midline. EYES: No conjunctival injection. No icterus. EOM full. LYMPHATICS: No lymphadenopathy of the neck or axillary or inguinal regions. HEART: No murmur, gallop, or pericardial friction rub. Reg rate rhythm. No JVD. LUNGS: Clear to auscultation and percussion. No respiratory distress, no use of accessory muscles. No rales or rhonchi. No wheezes. ABDOMEN: Soft, nontender, nondistended. No appreciable HSM. Bowel sounds normal. SKIN: Warm and dry without cutaneous eruptions. No nodules. Right hip hematoma noted. No surrounding crepitus or bullae. PSYCHIATRIC: Mental status with confusion. EXT: No cellulitic change. Normal ROM. NEURO: Oriented to name, right foot drop Results Review: I reviewed the patient's new clinical results. Recent Labs Lab(s) Units 09/21/23 0234 09/20/23 0229 09/19/23 0240 WBC K/??L 13.1* 13.4* 15.7* HGB GM/DL 7.9* 7.7* 8.2* HCT % 23.5* 22.5* 24.8* PLT K/CU MM 272 240 251 Recent Labs Lab(s) Units 09/21/23 0235 NA meq/L 132* K meq/L 4.5 CL meq/L 99* CO2 meq/L 29 BUN mg/dL 27* CREATININE mg/dL 0.63 GLUCOSE mg/dL 116* CALCIUM mg/dL 8.7 Recent Labs Lab(s) Units 09/17/23 0409 ALKPHOS U/L 34 BILITOT mg/dL 0.9 ALT U/L 138* AST U/L 98* No results for input(s): SEDRATE in the last 168 hours. No results for input(s): CRP in the last 168 hours. No results for input(s): VANCOTROUGH , VANCORANDOM in the last 168 hours. No results for input(s): LACTATE in the last 168 hours. Estimated Creatinine Clearance: 38.4 mL/min (by C-G formula based on SCr of 0.63 mg/dL). @LABRCNTIP (cpk,ast,alt,alkaline phosphatase)@ Microbiology: Microbiology Results (last 7 days) Procedure Component Value Units Date/Time Blood Culture [[id number]] Collected: 09/19/23 1137 Order Status: Completed Specimen: Blood Updated: 09/20/23 1601 Result No growth in 24 hours Blood Culture Arm, Right Lower [[id number]] Collected: 09/19/23 1146 Order Status: Completed Specimen: Blood from Arm, Right Lower Updated: 09/20/23 1601 Result No growth in 24 hours Blood Culture Antecubital, Right [[id number]] Collected: 09/12/23 1806 Order Status: Completed Specimen: Blood from Antecubital, Right Updated: 09/18/23 0101 Result No growth in 5 days Blood Culture Forearm, Left [[id number]] Collected: 09/12/23 1814 Order Status: Completed Specimen: Blood from Forearm, Left Updated: 09/18/23 0101 Result No growth in 5 days Urine Culture [[id number]] Collected: 09/12/23 2210 Order Status: Completed Specimen: Urine, Clean Catch Updated: 09/15/23 0858 Result No growth Radiology: Radiology Results (last 3 days) Procedure Component Value Units Date/Time CT ABDOMEN/PELVIS WITHOUT IV CONTRAST Standard Protocol [[id number]] Collected: 09/18/23 1356 Order Status: Completed Updated: 09/18/23 1411 Narrative: CT SCAN OF THE ABDOMEN AND PELVIS WITHOUT CONTRAST; 09/18/2023 1:26 PM HISTORY: Right psoas hematoma. COMPARISON: September 14, 2023. PROCEDURE: Axial images were obtained from the lung bases to the pubic symphysis by computed tomography. This study was performed with techniques to keep radiation doses as low as reasonably achievable, (ALARA). Individualized dose reduction techniques using automated exposure control or adjustment of mA and/or kV according to the patient size were employed. FINDINGS: ABDOMEN: A 5 mm nodule in the right middle lobe is stable. There are moderate bilateral pleural effusions. There is bibasilar consolidation. The gallbladder is absent. There is mild right hydronephrosis. There is no nephrolithiasis. The left kidney is unremarkable. There is extensive stool throughout the colon. PELVIS: Anasarca is noted. There is trace ascites. The urinary bladder is unremarkable. There is fecal impaction in the rectal vault. Impression: Pleural effusions and bibasilar consolidation, probably secondary to pneumonia. Follow-up to complete resolution recommended. Mild right hydronephrosis of uncertain etiology. Constipation. Images reviewed, interpreted, and dictated by Jairo Acosta MD . IMPRESSION: 1. Pyuria with possible acute bacterial cystitis. Urine culture from 09/11 negative. Partially treated. Clinically resolved. 2. Right hip hematoma after fall 09/05/2023. X-ray without fracture on 09/15. Right psoas muscle with intramuscular hematoma from CT abdomen and pelvis 09/13. 3. Right sternocleidomastoid muscle loculated signal, potential hematoma seen on MRI 09/16. 4. Reported chest x-ray infiltrate resolved. Could have had atelectasis, and is at risk for pulmonary embolus given demonstration of new DVT. CT scan of the abdomen and pelvis with basilar infiltrate. 5. DVT right lower leg soleus and peroneal veins positive duplex 09/13/2023. 6. Leukocytosis, neutrophilic related to above issues. Worse. May be related to cystitis versus other. Blood cultures x 2 from 09/11 negative. 7. Hyponatremia related to above issues, medications, possible SIADH, versus other. 132. Ongoing. 8. Anemia, related to above issues and right hip hematoma. Minimally worse. 9. Hypocalcemia 8.0. 10. Elevated transaminase with ALT 213, ongoing, AST 308, ongoing, total bilirubin 0.9, alkaline phosphatase 45. Reportedly CT scan abdomen and pelvis at outside hospital without significant pathology. May need to repeat ultrasound versus other. Likely also related to muscle injury. 11. Rhabdo, CK 2217, ongoing. Related to her recent fall and trauma to leg. 12. Encephalopathy, toxic and metabolic. MRI brain without intracranial abnormalities from 09/16. Worse on 09/20. Likely metabolic related to medications. PLAN: 1. Diagnostically, continue to follow patient's physical exam, CBC, CMP, CRP. Radiographic studies as needed. 2. Therapeutically, discontinuemd doxycycline and ceftriaxone on 09/19 and reassess. Cultures were negative on this admission. Continue to follow off antibiotics. This provided coverage for possible pneumonia or urinary tract infection. 3. Supportive care. Room air on 09/13/2023. Orthopedics, nephrology, neurology evaluating. I discussed the patient's findings and my recommendations with the patient and nursing. Thank you for asking me to see Birgit Estrada. Our group would be pleased to follow this patient over the course of their hospitalization and assist with outpatient antimicrobial therapy, as indicated. Further recommendations depend on the results of the cultures and clinical course. Increased riskfor adverse drug reactions, complications of IV access, need for surgery, readmission. I prev discussed with the patient's son, and the patient's daughter. Discussed with Dr. Mccarty. Sim Cole MD 09/21/2023 * Cornelius Mccarty MD - 09/20/2023 3:21 PM EDT Subjective Awake No nausea or vomiting No fever Eating Moves Extremities bilateral Last Recorded Vitals Blood pressure 139/55, pulse 57, temperature 98.2 ??F (36.8 ??C), resp. rate 18, height 1.6 m (5' 3 ), weight 48.5 kg (107 lb), SpO2 97 %. Physical Exam Head atraumatic normocephalic Pupils round and reactive Eyes no conjunctival injection or discharge Ears no discharge Nose no bleeding or discharge Mouth dry Neck supple forage of motion Chest diminished entry bilaterally no wheezes heart S1 and S2 healed regular rate Abdomen soft audible bowel sounds Extremities bilateral extremity edema with right hip discoloration Neurological patient alert awake move extremities Psychiatric anxiety Skin right hip area discoloration Labs: Results for orders placed or performed during the hospital encounter of 09/12/23 (from the past 24 hour(s)) Basic Metabolic Panel Status: Abnormal Collection Time: 09/20/23 2:29 AM Result Value Ref Range Sodium 130 (L) 136 - 146 meq/L Potassium 4.4 3.5 - 5.1 meq/L Chloride 98 (L) 102 - 112 meq/L CO2 27 21 - 32 meq/L Anion Gap 9 9 - 20 BUN 26 (H) 7 - 22 mg/dL Creatinine 0.76 0.55 - 1.02 mg/dL BUN/Creatinine 34 (H) 8 - 20 Glucose 103 74 - 106 mg/dL Calcium 8.5 8.4 - 10.1 mg/dL Osmolality Calc 265.8 eGFR (mL/min/1.73m2) >60 >=60 mL/min/1.73m2 CBC - Hemogram (SJ-BKR) Status: Abnormal Collection Time: 09/20/23 2:29 AM Result Value Ref Range WBC 13.4 (H) 4.0 - 10.0 K/??L RBC 2.45 (L) 3.93 - 5.22 M/??L Hemoglobin 7.7 (L) 11.2 - 15.7 GM/DL Hematocrit 22.5 (L) 34.1 - 44.9 % MCV 92 79 - 95 fL MCH 31.4 25.6 - 32.2 pg MCHC 34.2 32.2 - 35.5 GM/DL RDW 15.2 (H) 11.7 - 14.4 % Platelets 240 140 - 375 K/CU MM MPV 9.7 9.4 - 12.3 fL Procalcitonin Status: Normal Collection Time: 09/20/23 2:29 AM Result Value Ref Range Procalcitonin <0.14 <=0.50 ng/mL Lactic Acid with reflex (SJ) Status: Normal Collection Time: 09/20/23 2:30 AM Result Value Ref Range Lactic Acid Level (mmol/L) 0.8 0.4 - 2.0 mmol/L Ammonia Status: Normal Collection Time: 09/20/23 2:30 AM Result Value Ref Range Ammonia 12 11 - 32 ??mol/L CT ABDOMEN/PELVIS WITHOUT IV CONTRAST Standard Protocol Narrative: CT SCAN OF THE ABDOMEN AND PELVIS WITHOUT CONTRAST; 09/18/2023 1:26 PM HISTORY: Right psoas hematoma. COMPARISON: September 14, 2023. PROCEDURE: Axial images were obtained from the lung bases to the pubic symphysis by computed tomography. This study was performed with techniques to keep radiation doses as low as reasonably achievable, (ALARA). Individualized dose reduction techniques using automated exposure control or adjustment of mA and/or kV according to the patient size were employed. FINDINGS: ABDOMEN: A 5 mm nodule in the right middle lobe is stable. There are moderate bilateral pleural effusions. There is bibasilar consolidation. The gallbladder is absent. There is mild right hydronephrosis. There is no nephrolithiasis. The left kidney is unremarkable. There is extensive stool throughout the colon. PELVIS: Anasarca is noted. There is trace ascites. The urinary bladder is unremarkable. There is fecal impaction in the rectal vault. Impression: Pleural effusions and bibasilar consolidation, probably secondary to pneumonia. Follow-up to complete resolution recommended. Mild right hydronephrosis of uncertain etiology. Constipation. Images reviewed, interpreted, and dictated by Jairo Acosta MD Assessment #1 hyponatremia Patient mid to the hospital from nephrology evaluation will check electrolytes start IV fluid CT of chest done with no apparent malignancy ?? 2 pneumonia patient already on IV Zosyn doxycycline breathing treatment oxygen cultures ordered ?? #3 dehydration patient started on IV fluid ?? #4 anxiety restart Xanax as needed ?? #5 hypertension start hydralazine as needed ?? #6 GI prophylaxis Pepcid ?? #7 right hip hematoma will consult Ortho start pain control ? #8 DVT prophylaxis 09/19/2023 Plan Altered mental status/acute encephalopathy Consult neurology Improving Lower extremity deep vein thrombosis Blood transfusion if needed Patient with pleural effusion No aggressive management Sodium level improving palliative care Patient will need placement when medically stable 09/20/2023 Patient has rhabdomyolysis which improving Need to be switched to oral anticoagulation Discharged on oral Eliquis monitoring globin and hematocrit May need inferior vena cava filter placement if cannot tolerate oral anticoagulation Hemoglobin is stable Discussed with Dr. Wakefield Labs reviewed sodium stable Discharge Planning: Patient medically stable to be discharge Patient can be discharged in a.m. to rehab case management following * KACI Xie/Pb - 09/20/2023 3:20 PM EDT Images from the original note were not included. Inpatient Occupational Therapy Treatment Note Patient Name: Birgit Estrada Date of : 1950 Date of Treatment: 09/20/23 Start Time: 1435 Stop Time: 1502 Session Duration: 27 minutes This patient is a 73 y.o. female admitted on 09/12/2023 with Weakness [R53.1]. Past Medical History: Diagnosis Date ??? Arthritis ??? Hypertension Past Surgical History: Procedure Laterality Date ??? CHOLECYSTECTOMY ??? TONSILLECTOMY ??? TUBAL LIGATION General Visit type: Treatment Approved by: Nurse Barry Patient disposition upon entry: Patient verified by name, Patient verified by date of , Supinein bed, Visitor/family present Assisted by: tv technician Precautions Weightbearing status: Weight bearing as tolerated (WBAT), Right lower extremity Precautions: Fall risk Isolation precautions: Standard LDA/Brace/Protective equipment: Brace/protective equipment: bilateral poddus boots Subjective Subjective: Pt agreeable Pain No-patient has no complaints of pain Cognition Cognition: Overall cognitive status: WFL Objective Bed mobility:Rolling: Moderate assistance, 2 person assist Supine to sit: Moderate assistance, 2 person assist Transfers:Bed to chair transfer:Moderate assistance, 2 person assist, Hand held assistance, Gait belt used Activity Tolerance Patient tolerated activity/intervention well with no complaints or adverse events. Treatment Upon entering room, pt was supine in bed. Pt was able to transfer to seated at EOB with mod Ax2. Ptdemonstrated good static seated balance while at EOB, but duration of sit was limited 2/2 pain. Pt was able to stand and pivot from EOB to bedside chair with mod Ax2. Pt was repositioned to increase comfort and all needs were met. Assessment Assessment Pt is making good progress and demonstrated less need for assistance than previous session. Recommend continued occupational therapy to progress patient with functional mobility and I with ADLs and IADLs. Plan Recommendations Discharge recommendations: Discharge recommendations pending progression of acute hospital stay secondary to the patient's medical status DME recommendations: Unable to make adaptive/DME recommendations at this time. Treatment Plan: ADL training, Functional mobility/transfer training, IADL training, Safety training, Strengthening OT Frequency/Duration: 3x/week for 14 days Goals Grooming:??grooming??with modified independence Toileting:??toileting?with supervision. Bed mobility:??bed mobility??with modified independence. Functional transfers:??ambulatory transfer??with supervision. ?? Target Date:?09/27/2023 Goals were discussed with patient and family Progress towards goals: progressing Education Patient/Visitors educated on role of occupational therapy, patient's plan of care, functional mobility and following, they were able to verbalize understanding, return demonstration. Patient Disposition Upon Leaving Patient Disposition: Sitting in bedside chair, All needs met and within reach, Call light/pull cordin reach If this patient discharges prior to next therapy session, this note serves as the patient's discharge summary. Electronically signed by SHARRI Xie - 09/20/2023 - 3:21 PM EDT * Haven Mooney MD - 09/20/2023 3:04 PM EDT Subjective: Seen and examined at bedside. No acute events overnight. No new complain No CP, SOA, N/V, fever, chills or rash Objective: Blood pressure 139/55, pulse 57, temperature 98.2 ??F (36.8 ??C), resp. rate 18, height 1.6 m (5' 3 ), weight 48.5 kg (107 lb), SpO2 97 %. Intake/Output Summary (Last 24 hours) at 09/20/2023 1504 Last data filed at 09/20/2023 0900 Gross per 24 hour Intake 240 ml Output 2200 ml Net -1960 ml 09/18 07 - 09/19 0659 In: 240 [P.O.:240] Out: 2200 [Urine:2200] Physical Exam: Gen: Alert, NAD HEENT: NC, AT Neck: Supple, no JVD Lungs: CTA. Non labored, symetrical chest expansion CVS: SI/S2 audible. RRR, No M/G noted Abd: soft, NT, ND, BS + Ext: + Pedal edema , no cyanosis UG DESIGNER: Alert, No focal deficit noted grossly Psy: Cooperative Labs: Recent Labs Lab(s) Units 09/20/23 0229 09/19/23 0240 09/18/23 0646 WBC K/??L 13.4* 15.7* 14.9* HGB GM/DL 7.7* 8.2* 8.1* PLT K/CU MM 240 251 234 Recent Labs Lab(s) Units 09/20/23 0229 09/19/23 1137 09/19/23 0240 09/18/23 1154 09/17/23 0812 09/17/23 0409 09/14/23 1325 09/14/23 0249 NA meq/L 130* 130* 130* 130* 130* < > 131* 131* < > 124* K meq/L 4.4 4.7 5.0 4.8 -- 3.8 < > 4.1 CL meq/L 98* 97* 100* 98* -- 97* < > 94* CO2 meq/L 27 29 28 28 -- 29 < > 24 BUN mg/dL 26* 26* 27* 22 -- 20 < > 22 CREATININE mg/dL 0.76 0.80 0.80 0.73 -- 0.68 < > 0.80 CALCIUM mg/dL 8.5 8.7 8.2* 8.4 -- 7.9* < > 8.0* ALBUMIN g/dL -- -- -- -- -- 2.2* -- 2.3* < > = values in this interval not displayed. A/P: 1- Hyponatremia- Asymptomatic - 119 at presentation at OSH. 121 at H.-Urine osmolarity 892, urinesodium less than 15, serum osmolarity 261. At home on HCTZ - Improving - 130 today 2- Hypertension 3- Right hip hematoma 4- Right lower extremity DVT. 5- Anemia 6- Elevated liver enzymes -improving. ?? Plan: - Fluid restriction - lasix 20 mg bid - Salt tablet 1 gm once - never given yesterday - discussed with RN and Pharmacist - hopefully willget it today - Serial sodium monitoring. - May need 3% saline infusion if further drop in sodium below 120. Haven Mooney MD 09/20/23 2:31 PM * Kimberly Escalante RD - 09/20/2023 2:25 PM EDT NAIN ADIME NUTRITION ASSESSMENT ADIME Nutrition Assessment The patient is a 73 y.o. [facility]. Present on Admission: None (Admitting Diagnoses) Hyponatremia Pneumonia Dehydration Right hip hematoma Nutrition Evaluation Type: Follow Up Reason for Evaluation: BMI <19 Subjective Comments: 09/19: High f/up. Pt currently on a regular, 1200ml fluid restricted diet with Ensure BID. Pt eating well, 54% avg intakes x7 meals per nsg documentation. Pt planned to d/c tomorrow per CM note. 09/15: High f/u. Pt remains confused and not appropriate for interview. Was scheduled for transport to facility but not medically ready for d/c. Has been complaining of pain in legs. 25% of intake recorded in chart. Per PCT, pt is eating minimally, drinking at least one ensure daily with the goal of drinking 2. 09/12: RD reviewed chart due to remote. notes pt confused, uncooperative, not appropriate for phone interview at this time. Neurology being consulted. Pt is on a regular diet, eating 0% of meals documented. No charted wt hx. Will add ONS prn. Past Medical/Surgical History: Past Medical History: Diagnosis Date ??? Arthritis ??? Hypertension Past Surgical History: Procedure Laterality Date ??? CHOLECYSTECTOMY ??? TONSILLECTOMY ??? TUBAL LIGATION Vitals and Basic Assessment: Vitals: Vitals: 09/20/23 1210 BP: 139/55 Pulse: 57 Resp: Temp: 98.2 ??F (36.8 ??C) SpO2: 97% Oxygen: 2LNC [place] Scale: [place] Scale Score: 15 Last BM: Last BM Date: 09/19/23 GI Symptoms: nondistended abd, active BS Edema: Edema: Right lower extremity, Left lower extremity Skin: intact Allergies: No Known Allergies Scheduled Medications: ??? acetaminophen ??? ALPRAZolam ??? cloNIDine HCL ??? cyclobenzaprine ??? docusate sodium ??? enoxaparin ??? famotidine ??? gabapentin ??? hydrALAZINE ??? ipratropium-albuteroL ??? melatonin ??? morphine ??? ondansetron Or ??? ondansetron PF ??? oxyCODONE ??? polyethylene glycol 3350 ??? polyethylene glycol 3350 ??? senna-docusate ??? sodium chloride 0.9% (NS) ??? sodium chloride 0.9% (NS) ??? sodium chloride Drips: none Pertinent Labs: Na 130, BUN 26, WBC 13.4 Anthropometrics: Ht: Height: 160 cm (5' 3 ) Wt: Weight: 48.5 kg (107 lb) (09/11), no new wt (09/19) Wt hx: none documented BMI: Body mass index is 18.95 kg/m??. IBW: 52kg Percent IBW: 93% Current Nutrition Intake: Diet Orders: Diet Order(s): Regular Diet Fluid restriction/24 hours: 1200 ml fluid restriction Supplements: Ensure BID Intake: 54% avg intakes x7 meals Enteral Nutrition? no Diet Experience and Nutrition History: Previous Nutrition Education: unsure Diet Education Provided: not appropriate at this time Nutrition Focused Physical Exam: Date performed: defer Physical signs of fat or muscle wasting with severity: --- Energy intake hx: --- Wt loss: --- Assessment of Malnutrition: Unable to complete malnutrition evaluation at this time. Nutrition Diagnoses: Problem #1: Inadequate Oral Intake Etiology: altered mentation Signs/Symptoms: pt eating 0% of documented meals Status: Resolved Problem #2: Underweight Etiology: advanced age Signs/Symptoms: BMI 18.9 Status: Ongoing Nutrition Interventions and Recommendations: Collaboration with other providers, General, [employer]iet and Commercial beverage Nutrition Monitoring and Goals: 1. Continue a regular, 1200ml fluid restricted diet + Ensure Enlive BID Goal: po intakes > 50% from meals and ONS 2. Weigh 1-2x weekly Goal: no significant wt changes Nutrition Risk Level: Moderate Risk Kimberly Escalante RDN, LD * Ashely Rolon LCSW - 09/20/2023 11:04 AM EDTSummary: Progress Social Work Progress Note DC tomorrow to [place]. Cm Spoke with [facility] who confirmed transport for 09/20@ 1300. Ashely Rolon LCSW * Haven Mooney MD - 09/20/2023 10:58 AM EDT Subjective: Seen and examined at bedside. No acute events overnight. No new complain No CP, SOA, N/V, fever, chills or rash Objective: Blood pressure 121/52, pulse 80, temperature 98.1 ??F (36.7 ??C), temperature source Oral, resp. rate 18, height 1.6 m (5' 3 ), weight 48.5 kg (107 lb), SpO2 90 %. Intake/Output Summary (Last 24 hours) at 09/20/2023 1058 Last data filed at 09/20/2023 0900 Gross per 24 hour Intake 240 ml Output 2200 ml Net -1960 ml 09/18 0700 - 09/19 0659 In: 240 [P.O.:240] Out: 2200 [Urine:2200] Physical Exam: Gen: Alert, NAD HEENT: NC, AT Neck: Supple, no JVD Lungs: CTA. Non labored, symetrical chest expansion CVS: SI/S2 audible. RRR, No M/G noted Abd: soft, NT, ND, BS + Ext: + Pedal edema , no cyanosis UG DESIGNER: Alert, No focal deficit noted grossly Psy: Cooperative Labs: Recent Labs Lab(s) Units 09/20/23 0229 09/19/23 0240 09/18/23 0646 WBC K/??L 13.4* 15.7* 14.9* HGB GM/DL 7.7* 8.2* 8.1* PLT K/CU MM 240 251 234 Recent Labs Lab(s) Units 09/20/23 0229 09/19/23 1137 09/19/23 0240 09/18/23 1154 09/17/23 0812 09/17/23 0409 09/14/23 1325 09/14/23 0249 NA meq/L 130* 130* 130* 130* 130* < > 131* 131* < > 124* K meq/L 4.4 4.7 5.0 4.8 -- 3.8 < > 4.1 CL meq/L 98* 97* 100* 98* -- 97* < > 94* CO2 meq/L 27 29 28 28 -- 29 < > 24 BUN mg/dL 26* 26* 27* 22 -- 20 < > 22 CREATININE mg/dL 0.76 0.80 0.80 0.73 -- 0.68 < > 0.80 CALCIUM mg/dL 8.5 8.7 8.2* 8.4 -- 7.9* < > 8.0* ALBUMIN g/dL -- -- -- -- -- 2.2* -- 2.3* < > = values in this interval not displayed. A/P: 1- Hyponatremia- Asymptomatic - 119 at presentation at OSH. 121 at H.-Urine osmolarity 892, urinesodium less than 15, serum osmolarity 261. At home on HCTZ - Improving - 130 today 2- Hypertension 3- Right hip hematoma 4- Right lower extremity DVT. 5- Anemia 6- Elevated liver enzymes -improving. ?? Plan: - Fluid restriction - lasix 20 mg bid - Salt tablet 1 gm once - never given yesterday - discussed with RN and Pharmacist - hopefully willget it today - Serial sodium monitoring. - May need 3% saline infusion if further drop in sodium below 120. Haven Mooney MD 09/20/23 2:31 PM * Nathaniel Wakefield MD - 09/20/2023 10:20 AM EDT Subjective Since I last saw the patient on September 17, the following has happened: 1) the patient's pain in her lower extremities is actually improved. When I last saw her on September 15 I increased her Neurontin from 300 twice a day to 3 times a day. She still is ordered oxycodone 5 mg every 4 hours as needed for pain. However yesterday she only received 2 doses of this and she has not received any doses of the oxycodone today. Additionally she still is ordered morphine 2 mg IV every 4 hours as needed. Last dose of this was at 9 AM on September 17. 2) the patient tells me she is starting to get more movement in her legs and she was been surprisedover the last 24 hours that she is starting to be able to move her legs. Physical therapy worked with the patient yesterday and noted the following: Functional Bed/Transfer Mobility Training Supien to sit edge of bed Mod A X 2 sat edge of bed 2 min then work tranfer bed to bedside toilet, following toleting for bowel movement 2X stand to clean bottom Max A x 1. Then transfer back to bed with pivot transfer max A x 1, Sat Edge fo bed x 5 min then Mod A x 2 back to supine, draw sheet up into bed for centered in bed, PODDUS Boots on feet all of treatment. Hand off to nursing who was empty pure wick cannister. Gait Not safe to attempt due to medical condition or safety 3) the patient is on Lasix 20 mg IV twice a day for hyponatremia. Her sodium on September 16 was 130, her sodium on the was 130 and her sodium this morning is 130. 4) the patient and the staff noticed that the patient's swelling in her lower extremities is continuing to decrease. She currently has JAMEY hose on both lower extremities and Multi-Podus boots. Sometime over the last 48 hours her SCDs have been removed. The nursing staff is under the understanding that at 1 point in time the patient complained that the SCDs were bothering her but the patient is uncertain about this. 4)on September 12, the attending Dr. Mccarty ordered a venous ultrasound of her lower extremities (I assume to try to find a source of pain and swelling in her lower extremities). ?? This study done on September 12 did show a DVT in the right peroneal vein and soleal vein that appeared acute. ?? When Dr. Mccarty first found out about the DVT in the right lower extremity, he initially consideredordering an IV heparin drip but decided against this given the patient's extensive ecchymosis ease in her proximal legs. Dr. Mccarty on September 12 did consult the vascular surgery service given the DVT and the concern for potential risk of anticoagulation. ?? Dr. Cadet of the vascular surgery service on September 12 however felt that the potential benefits of anticoagulation given the right lower extremity outweighed the risk of worsening ecchymosis ease andtherefore the vascular surgery service started the patient on therapeutic Lovenox on September 12 at 50 mg twice a day for which she is still receiving. ?? On September 15 , I did speak to one of the physician extenders on the vascular surgery service who tells me that their service would be happy to place an IVC filter if a clinical decision was made thatthe potential risk of anticoagulation outweighed the benefit. 5) patient remains on therapeutic Lovenox for the DVT in her right lower extremity. On September 16 her hemoglobin had dropped to 6.9 and she received a transfusion. On September 17 her hemoglobin was 8.1 with a hematocrit of 23.3. On September 18 her hemoglobin was 8.2 with a hematocrit of 24.8. Today, her hemoglobin is 7.7 with a hematocrit of 22.5. 6) As part of the workup of her leg weakness I sent off a CK on September 14 that was elevated at 3300. ?? I repeated another CK on September 15 which had decreased to 2200. ?? I repeated a third CK on September 16 that had dropped again to 1200. Dr. Mccarty repeated a fourth CK on September 18 and dropped again to 538. ?? I called [facility] today and found that no CK was checked during her stay there. 7) I did call [facility] today to track down what labs have been checked on this patient when she was there. According to their records the patient was in the their emergency room on September 05 after her fall and her sodium level was 130. According to their records the patient's primary care physician may have checked another sodium level on September 06 that was 127. The patient was then admitted to [facility] through the emergency room shortly after midnight on September 08 and at that time her sodium level was 122. By September 09 it had decreased to 120 and on September 10 it stayed at 120. On September 11 which was the day the patient was transferred here her sodium level was 119. ? Current Facility-Administered Medications: ??? acetaminophen (TYLENOL) tablet 650 mg, 650 mg, Oral, Q6H PRN ??? ALPRAZolam (XANAX) tablet 0.5 mg, 0.5 mg, Oral, Q4H PRN ??? cefTRIAXone (ROCEPHIN) 2 g in sodium chloride 0.9 % (NS) MBP 50 mL IVPB, 2 g, Intravenous, Q24H ??? cloNIDine HCL (CATAPRES) tablet 0.1 mg, 0.1 mg, Oral, Q8H PRN ??? cyclobenzaprine (FLEXERIL) tablet 10 mg, 10 mg, Oral, TID PRN ??? docusate sodium (COLACE) capsule 100 mg, 100 mg, Oral, BID PRN ??? doxycycline (VIBRAMYCIN) 100 mg in sodium chloride 0.9 % (NS) MBP 100 mL IVPB, 100 mg, Intravenous, Q12H ??? enoxaparin (LOVENOX) syringe 50 mg, 50 mg, Subcutaneous, Q12H ??? famotidine (PEPCID) tablet 20 mg, 20 mg, Oral, BID ??? gabapentin (NEURONTIN) capsule 300 mg, 300 mg, Oral, TID ??? hydrALAZINE (APRESOLINE) injection 10 mg, 10 mg, Intravenous, Q4H PRN ??? ipratropium-albuteroL (DUO-NEB) 0.5-2.5 (3) mg/3 mL nebulizer solution 3 mL, 3 mL, Nebulization, Q4H PRN ??? melatonin tablet 6 mg, 6 mg, Oral, Every Night PRN ??? morphine injection 2 mg, 2 mg, Intravenous, Q4H PRN ??? ondansetron (ZOFRAN-ODT) disintegrating tablet 4 mg, 4 mg, Oral, Q8H PRN OR ondansetron PF (ZOFRAN) injection 4 mg, 4 mg, Intravenous, Q8H PRN ??? oxyCODONE (ROXICODONE) immediate release tablet 5 mg, 5 mg, Oral, Q4H PRN ??? polyethylene glycol (GLYCOLAX) packet 17 g, 17 g, Oral, Daily PRN ??? polyethylene glycol (GLYCOLAX) packet 17 g, 17 g, Oral, Daily ??? senna-docusate (SENOKOT S) tablet 8.6-50 mg, 1 tablet, Oral, Every Night ??? Insert Peripheral IV, , , Once AND Saline Lock IV, , , Once AND sodium chloride 0.9% (NS) flush 10 mL, 10 mL, Intravenous, PRN ??? [COMPLETED] Prepare RBC: 1 Units, Leukoreduced, , , Once AND Transfuse RBC: 1 Units, Leukoreduced, , Intravenous, Transfusion AND sodium chloride 0.9% (NS) infusion, 250 mL, Intravenous, Once ??? sodium chloride disintegrating tablet 1 g, 1 g, Oral, Once Review of Systems GI I-the patient says that she feels like she is having diarrhea. The nurse tells me though she had1 large bowel movement yesterday and a soft formed bowel movement today. Objective Last Recorded Vitals Blood pressure 121/52, pulse 80, temperature 98.1 ??F (36.7 ??C), temperature source Oral, resp. rate 18, height 1.6 m (5' 3 ), weight 48.5 kg (107 lb), SpO2 90 %. Physical Exam Facies are symmetric speech is fluent. She has normal strength in her arms. Her legs she now has 1-2 out of 5 strength in both hip flexors and 2 out of 5 strength in her knee flexors. She still is unable to dorsiflex her right foot but she has 2 out of 5 strength in her plantar flexors of her rightfoot. She has about 3 out of 5 strength in her plantar flexors and dorsiflexors of her left foot. Her reflexes are 1-2+ at the knees. Labs: Results for orders placed or performed during the hospital encounter of 09/12/23 (from the past 24 hour(s)) Basic Metabolic Panel Status: Abnormal Collection Time: 09/19/23 11:37 AM Result Value Ref Range Sodium 130 (L) 136 - 146 meq/L Potassium 4.7 3.5 - 5.1 meq/L Chloride 97 (L) 102 - 112 meq/L CO2 29 21 - 32 meq/L Anion Gap 9 9 - 20 BUN 26 (H) 7 - 22 mg/dL Creatinine 0.80 0.55 - 1.02 mg/dL BUN/Creatinine 33 (H) 8 - 20 Glucose 99 74 - 106 mg/dL Calcium 8.7 8.4 - 10.1 mg/dL Osmolality Calc 265.6 eGFR (mL/min/1.73m2) >60 >=60 mL/min/1.73m2 Basic Metabolic Panel Status: Abnormal Collection Time: 09/20/23 2:29 AM Result Value Ref Range Sodium 130 (L) 136 - 146 meq/L Potassium 4.4 3.5 - 5.1 meq/L Chloride 98 (L) 102 - 112 meq/L CO2 27 21 - 32 meq/L Anion Gap 9 9 - 20 BUN 26 (H) 7 - 22 mg/dL Creatinine 0.76 0.55 - 1.02 mg/dL BUN/Creatinine 34 (H) 8 - 20 Glucose 103 74 - 106 mg/dL Calcium 8.5 8.4 - 10.1 mg/dL Osmolality Calc 265.8 eGFR (mL/min/1.73m2) >60 >=60 mL/min/1.73m2 CBC - Hemogram (SJ-BKR) Status: Abnormal Collection Time: 09/20/23 2:29 AM Result Value Ref Range WBC 13.4 (H) 4.0 - 10.0 K/??L RBC 2.45 (L) 3.93 - 5.22 M/??L Hemoglobin 7.7 (L) 11.2 - 15.7 GM/DL Hematocrit 22.5 (L) 34.1 - 44.9 % MCV 92 79 - 95 fL MCH 31.4 25.6 - 32.2 pg MCHC 34.2 32.2 - 35.5 GM/DL RDW 15.2 (H) 11.7 - 14.4 % Platelets 240 140 - 375 K/CU MM MPV 9.7 9.4 - 12.3 fL Procalcitonin Status: Normal Collection Time: 09/20/23 2:29 AM Result Value Ref Range Procalcitonin <0.14 <=0.50 ng/mL Lactic Acid with reflex (SJ) Status: Normal Collection Time: 09/20/23 2:30 AM Result Value Ref Range Lactic Acid Level (mmol/L) 0.8 0.4 - 2.0 mmol/L Ammonia Status: Normal Collection Time: 09/20/23 2:30 AM Result Value Ref Range Ammonia 12 11 - 32 ??mol/L CT ABDOMEN/PELVIS WITHOUT IV CONTRAST Standard Protocol Narrative: CT SCAN OF THE ABDOMEN AND PELVIS WITHOUT CONTRAST; 09/18/2023 1:26 PM HISTORY: Right psoas hematoma. COMPARISON: September 14, 2023. PROCEDURE: Axial images were obtained from the lung bases to the pubic symphysis by computed tomography. This study was performed with techniques to keep radiation doses as low as reasonably achievable, (ALARA). Individualized dose reduction techniques using automated exposure control or adjustment of mA and/or kV according to the patient size were employed. FINDINGS: ABDOMEN: A 5 mm nodule in the right middle lobe is stable. There are moderate bilateral pleural effusions. There is bibasilar consolidation. The gallbladder is absent. There is mild right hydronephrosis. There is no nephrolithiasis. The left kidney is unremarkable. There is extensive stool throughout the colon. PELVIS: Anasarca is noted. There is trace ascites. The urinary bladder is unremarkable. There is fecal impaction in the rectal vault. Impression: Pleural effusions and bibasilar consolidation, probably secondary to pneumonia. Follow-up to complete resolution recommended. Mild right hydronephrosis of uncertain etiology. Constipation. Images reviewed, interpreted, and dictated by Jairo Acosta MD Assessment Birgit Estrada is a 73-year-old female with hypertension and depression who was transferred to our hospital on September 11 from the inpatient service at [facility] fpr further evaluation of hyponatremia after a September 04 fall at home . In talking with the son, the patient fell down on September 04 at home while trying to help her (who has Lewy body disease) change clothes. A couple hours after falling on September 04, she complained of hip pain and was taken to [facility] ER and released home after several x-rays were done. According to the records at [facility] during that emergency room visit her sodium level was 130. After being released from [facility] emergency room on September 05, the son has told me that the patient continued to have severe hip pain and was having nausea at home from September 04 through September 06. Due to the continued hip pain and the nausea, the son has told me the patient was taken back to [facility] emergency room apparently on the late evening of September 07. According to the son, the patient walked into [facility] emergency room on September 07 and according to the records was found to have a sodium level of 122 at that time. She was thus admitted to [facility] around the late night of September 07 at the skating rink ice maker of September 08. According to the son for the first few days at [facility] the patient was walking with a walker but then he noticed that the patient was staying in bed on September 10 and the patient has been complaining of severe hip pain and leg weakness since that time. According to the records her sodium at [facility] was 122 on September 08, 120 on September 09 and 119 on September 11. According to the records at [facility], her medications prior to admission were BuSpar 20 mgtwice a day, result 20 mg a day, benazepril 40 mg twice a day, multivitamin once a day, amlodipine 2.5 mg a day, hydrochlorothiazide 25 mg a day, and E citalopram 5 mg a day. As stated above she was transferred to our hospital on September 11 largely for persistent hyponatremiaand as written above in my note the patient's sodium level on presentation here on September 11 was only 121. Since being transferred here on September 11 , there have been several medical issues that are being worked on at once. The patient's hyponatremia has been a persistent issue. From September 13 until September 17 her serum sodium was checked by the lab every 4 hours. With the use of IV albumin (she received a dose on September 14 and September 16), the use of IV Lasix (she has been on Lasix 20 mg twice a day since September 13), holding her home hydrochlorothiazide, her sodium level has started to go up close to normal levels over the last 2 days. On September 15 her sodium got up to 128 and on September 16 it was 130 and today it is still 130 . Believe she is on fluid restrictions as well. Another persistent issue has been leg swelling and leg pain along with severe bilateral leg weakness which is prohibiting her to ambulate and move about. I was asked to see her on September 12 for the leg weakness and she has had severe pitting edema and anasarca of her lower extremities. However over the last 4 days the pitting edema and anasarca have improved with the use of Lasix and/or getting her sodium increased. She also had JAMEY hose, SCDs and Multi-Podus boots which all may be helping with the swelling in herlower extremities. For the SCDs have been removed over the last 2 days. However her legs remained very weak. However over the last 2 days she is starting to get some mild improvement in her leg strength. She has extensive ecchymoses in her proximal thighs. As part of the workup for leg weakness I did do MRIs of her spine and brain which showed no cause for her leg weakness. I did do a CT scan of her abdomen and pelvis looking for a retroperitoneal hematoma on September 13. This study suggested a possible area of hemorrhage in the right psoas muscle but I do not think this would be causing all of her symptoms. The radiologist also made note on the CT scan of her abdomen and pelvis that there is extensive anasarca particularly in the pelvis. Another issue has been the discovery of a right lower extremity DVT in her right peroneal vein and soleal vein that was picked up on a venous ultrasound on September 12. Due to this finding the patient has been on therapeutic Lovenox since September 12. Patient has been anemic since transfer here. Her hemoglobin on September 11 the time of transfer was 8.5 with a hematocrit of 23.6. On September 16 however her hemoglobin had dropped to 6.9 and her hematocrit had dropped to 20.3. Therefore on September 16 she received a blood transfusion. She remains on therapeutic Lovenox. I have also noted this admission that the patient has had an elevated CK. No CKs were checked at [facility] but her CK was elevated at 3300 on September 14 and the CK has improved to 1200 by September 16. On September 18 her CK had continue to improve to 538. A vitamin B12 and folate level are normal. She does have extensive bruising of her bilateral posterior thighs which I assume is from the fall of September 04 . I did repeat a CT scan of her abdomen and pelvis on September 17 out of concern of the dropping hemoglobin on September 16 and the possible right psoas hemorrhage on the CAT scan of September 13. This study showed the followin) Pleural effusions and bibasilar consolidation, probably secondary to pneumonia. Follow-up to complete resolution recommended. ??2) Mild right hydronephrosis of uncertain etiology. ??3) Constipation. 4) Anasarca is noted. ?? The differential for her bilateral leg weakness and pain could include one or combination of the followin) injury to the lumbar sacral plexus and/or injury to the sciatic nerves (and/or femoral nerves) from the fall of September 04 and/or resulting swelling and anasarca. 2) rhabdomyolysis and/or myopathy-her elevated CK noted on September could be a sign that she may have suffered from rhabdomyolysis at some point in time. 3) Manifestation of her hyponatremia. I have found a couple case reports of hyponatremia causing rhabdo myelolysis. 5) Vasculitis. At this time I do not know the exact etiology of her bilateral leg weakness and pain and there are multiple potential causes. However, I am encouraged that her leg weakness is starting to improve with reducing the leg swelling and anasarca in her legs as well as improving the sodium level. The use of compression stockings may be helping as well. I am keeping an open mind on this case but I am suspicious that the majority of her symptoms and signs in her lower extremity may be due to rhabdomyolysis and/or swelling and anasarca. As above I have found some case reports of hyponatremia causing rhabdomyolysis. At this time, I recommend the following: ?? 1) At discharge she should follow-up with an outpatient neurologist not drive until released by physician. If her leg weakness persists she may eventually need an EMG/nerve conduction study of her lower extremities as an outpatient. 2) Given the drop in hemoglobin of September 16 requiring a blood transfusion as well as her persistent anemia, to continue weighing the risk and benefits of continuing anticoagulation for her recently discovered right lower extremity DVT. 3) I am going to continue her Neurontin to 300 mg times a day. 4) continue treating underlying medical conditions as you are. 5) I agree with physical therapy. 6) I agree with medical maneuvers to try to normalize her sodium and/or decrease lower extremity swelling and/or anasarca. 7) continue JAMEY hose which I think are both helping with the lower extremity swelling. I also agreewith the Multi-Podus boots. I note that the SCDs have recently take been taken off the patient. Shemay eventually need these back as well. 8) if it is ever decided that the risk of anticoagulation outweigh the benefits, we may need to reconsult vascular surgery to consider an IVC filter for her right lower extremity DVT. 9) as part of a workup for a myopathy and/or rhabdo myelolysis, I have considered ordering an MRI of her thigh. However as she is getting better and her CK levels are dropping I suspect this test would be low yield. 10) patient may eventually need follow-up for the small pleural effusions and mild right hydronephrosis seen on her 2 CAT scans of the abdomen and pelvis here. Of note , I see that tentatively the patient scheduled for transfer to a long- term care facility inthe next couple of days. From my perspective, I would advise holding off on transfer until the physicians involved in her case feel confident that her sodium is approaching normal and/or is normal and stable. Also I would advise holding off on transfer until the physicians involved in her case have worked out the full riskand benefits as to anticoagulation and/or need for an IVC filter. On September 17, I discussed this case with Dr. Dale Loredo and I discussed the need for continuing to weigh the risk and benefits of anticoagulation. I have spent an hour on this case today. Over half that time was spent reviewing the chart, [facility] to get more laboratory data as well as counseling the patient and coordinating care with the nursing staff. Plan * Ray Draper PA-C - 09/20/2023 8:29 AM EDT No acute events over weekend. Patient reports she is still not been out of bed to chair. Staff reports patient has been too somnolent or refusing to get out of bed. Hematoma right lower extremity. Imaging negative for fracture. Reinforced the importance of transitioning to a chair twice a day to the patient. Staff urged to mobilize or even if she is max assist or Kathrin lift. Initial transfer should definitely be two-person max assist Hospital day and #8 with right hip hematoma and no fracture noted. Ipsilateral foot drop and HNP noted on MRI at L4-5. Cosigned by Crescencio Perkins MD at 09/22/2023 9:31 PM EDT * Sim Cole MD - 09/20/2023 7:02 AM EDT Images from the original note were not included. [facility] INFECTIOUS DISEASE PROGRESS NOTE Birgit Estrada 1950 [id number] Date of consult: 09/13/2023 Admit date: 09/12/2023 Requesting Provider: @[email or web address]@ Evaluating physician: Sim Cole MD Reason for Consultation: Acute bacterial cystitis Chief Complaint: Above Subjective History of present illness: Patient is a 73 y.o. Yr old female who is a poor historian with a history of essential hypertension, DJD, fell around 09/05/2023, sustaining increasing right hip pain, and was evaluated at an outside hospital and shown to have severe hyponatremia which was not improving. Patient also had a chest x-ray with possible opacity, with a normal CT scan negative for malignancy. CT scan of the head was unremarkable. Patient was transferred and admitted to [facility] on 09/12/2023. Urinalysis had significant pyuria at 11-20 WBCs but minimal symptoms. Right hip had noted hematoma likely relatedto her previous fall. Chest x-ray at [facility] was unremarkable. The patient was placedon piperacillin/tazobactam and doxycycline on 09/11. Duplex ultrasound was significant for right lower leg DVT in the peroneal and soleus veins. I was consulted on 09/13/2023 for further evaluation and treatment. No reported history of ill contacts, zoonotic exposures, TB, HIV, significant travel, immunocompromised state. 09/14/23 history reviewed. Difficulty with moving her right foot. Slightly confused. No high fever. Tolerating antibiotics. 09/15/23 history reviewed. Feels better. Slightly less confused. Tolerating antibiotics. No high fever. 09/16/23 hx rev. No high fever. Keena abx. No pain. Urine and blood cx neg. 09/17/2023 history reviewed. No high fever. Slow improvement. 09/20/2023 history reviewed. No high fevers or chills. Feels better. Past Medical History: Diagnosis Date ??? Arthritis ??? Hypertension Past Surgical History: Procedure Laterality Date ??? CHOLECYSTECTOMY ??? TONSILLECTOMY ??? TUBAL LIGATION Pediatric History Patient Parents ??? Not on file Other Topics Concern ??? Not on file Social History Narrative ??? Not on file Negative for cigarettes, alcohol, or drug use family history is not on file. Reviewed and unremarkable No Known Allergies Immunization History Administered Date(s) Administered ??? COVID-19 VACCINE MODERNA (SPIKEVAX) 12 YRS + (YUE177) 05/18/2023 ? ? COVID-19 VACCINE MRNA (MODERNA/BIVALENT)(DARK BLUE CAP W/DOAN)([id number] & [id number]) 03/10/2022 ??? Covid-19 Vaccine MRNA (PF) 18yr+ (Moderna)(MAC801) 07/18/2020, 08/15/2020, 02/27/2021, 11/04/2021 Medication: @Scheduled Meds: ??? cefTRIAXone 2 g Intravenous Q24H IVPB Stopped at 09/19/23 1354 ??? doxycycline 100 mg Intravenous Q12H IVPB Stopped at 09/20/23 0436 ??? enoxaparin 50 mg Subcutaneous Q12H 50 mg at 09/19/232119 ??? famotidine 20 mg Oral BID 20 mg at 09/19/232119 ??? furosemide 20 mg Intravenous BID 20 mg at 09/19/23 1910 ??? gabapentin 300 mg Oral TID 300 mg at 09/19/232119 ??? polyethylene glycol 3350 17 g Oral Daily 17 g at 09/19/23 1048 ??? senna-docusate 1 tablet Oral Every Night 1 tablet at 09/19/232119 ??? sodium chloride 1 g Oral Once Continuous Infusions: ??? sodium chloride 0.9% (NS) PRN Meds:. ??? acetaminophen ??? ALPRAZolam ??? cloNIDine HCL ??? cyclobenzaprine ??? docusate sodium ??? hydrALAZINE ??? ipratropium-albuteroL ??? melatonin ??? morphine ??? ondansetron Or ??? ondansetron PF ??? oxyCODONE ??? polyethylene glycol 3350 ??? sodium chloride 0.9% (NS) Please refer to the medical record for a full medication list Review of Systems: Constitutional-- No Fever, chills or sweats. Appetite fair, and no malaise. No fatigue. HEENT-- No new vision, hearing or throat complaints. No epistaxis or oral sores. Denies odynophagiaor dysphagia. No odynophagia or dysphagia. No headache, photophobia or neck stiffness. CV-- No chest pain, palpitation or syncope Resp-- No SOB/cough/Hemoptysis GI- No nausea, vomiting, or diarrhea. No hematochezia, melena, or hematemesis. Denies jaundice or chronic liver disease. -- No dysuria, hematuria, or flank pain. Denies hesitancy, urgency. Occasional frequency. Lymph- no swollen lymph nodes in neck/axilla or groin. Heme- No active bruising or bleeding; no Hx of DVT or PE. MS-- no swelling or pain in the bones or joints of arms/legs, except right hip as per HPI. No new back pain. Neuro-- No acute focal weakness or numbness in the arms or legs. No seizures. Except right foot with some foot drop. Skin--No rashes or lesions. No nodules. Physical Exam: Vital Signs Temp: [98.1 ??F (36.7 ??C)-98.6 ??F (37 ??C)] 98.1 ??F (36.7 ??C) Pulse: [53-91] 80 Resp: [17-18] 18 BP: (102-132)/(52-56) 121/52 Blood pressure 121/52, pulse 80, temperature 98.1 ??F (36.7 ??C), temperature source Oral, resp. rate 18, height 1.6 m (5' 3 ), weight 48.5 kg (107 lb), SpO2 90 %. GENERAL: Awake and alert, in moderate distress. Appears older than stated age. Resting in bed. HEENT: Normocephalic, atraumatic. Oropharynx without thrush. Dentition in fair repair. No cervical adenopathy. No neck masses. Ears externally normal, Nose externally normal. Trachea midline. EYES: No conjunctival injection. No icterus. EOM full. LYMPHATICS: No lymphadenopathy of the neck or axillary or inguinal regions. HEART: No murmur, gallop, or pericardial friction rub. Reg rate rhythm. No JVD. LUNGS: Clear to auscultation and percussion. No respiratory distress, no use of accessory muscles. No rales or rhonchi. No wheezes. ABDOMEN: Soft, nontender, nondistended. No appreciable HSM. Bowel sounds normal. SKIN: Warm and dry without cutaneous eruptions. No nodules. Right hip hematoma noted. No surrounding crepitus or bullae. PSYCHIATRIC: Mental status with occas confusion. EXT: No cellulitic change. Normal ROM. NEURO: Oriented to name, right foot drop Results Review: I reviewed the patient's new clinical results. Recent Labs Lab(s) Units 09/20/23 0229 09/19/23 0240 09/18/23 0646 WBC K/??L 13.4* 15.7* 14.9* HGB GM/DL 7.7* 8.2* 8.1* HCT % 22.5* 24.8* 23.3* PLT K/CU MM 240 251 234 Recent Labs Lab(s) Units 09/20/23 0229 NA meq/L 130* K meq/L 4.4 CL meq/L 98* CO2 meq/L 27 BUN mg/dL 26* CREATININE mg/dL 0.76 GLUCOSE mg/dL 103 CALCIUM mg/dL 8.5 Recent Labs Lab(s) Units 09/17/23 0409 ALKPHOS U/L 34 BILITOT mg/dL 0.9 ALT U/L 138* AST U/L 98* No results for input(s): SEDRATE in the last 168 hours. No results for input(s): CRP in the last 168 hours. No results for input(s): VANCOTROUGH , VANCORANDOM in the last 168 hours. No results for input(s): LACTATE in the last 168 hours. Estimated Creatinine Clearance: 38.4 mL/min (by C-G formula based on SCr of 0.76 mg/dL). @LABRCNTIP (cpk,ast,alt,alkaline phosphatase)@ Microbiology: Microbiology Results (last 7 days) Procedure Component Value Units Date/Time Blood Culture Arm, Right Lower [[id number]] Collected: 09/19/23 1146 Order Status: Resulted Specimen: Blood from Arm, Right Lower Updated: 09/19/23 1215 Blood Culture [[id number]] Collected: 09/19/23 1137 Order Status: Resulted Specimen: Blood Updated: 09/19/23 1215 Blood Culture Antecubital, Right [[id number]] Collected: 09/12/23 180 Order Status: Completed Specimen: Blood from Antecubital, Right Updated: 09/18/23 010 Result No growth in 5 days Blood Culture Forearm, Left [[id number]] Collected: 09/12/23 181 Order Status: Completed Specimen: Blood from Forearm, Left Updated: 09/18/23 0101 Result No growth in 5 days Urine Culture [[id number]] Collected: 09/12/23 2210 Order Status: Completed Specimen: Urine, Clean Catch Updated: 09/15/23 0858 Result No growth Radiology: Radiology Results (last 3 days) Procedure Component Value Units Date/Time CT ABDOMEN/PELVIS WITHOUT IV CONTRAST Standard Protocol [[id number]] Collected: 09/18/23 1356 Order Status: Completed Updated: 09/18/23 1411 Narrative: CT SCAN OF THE ABDOMEN AND PELVIS WITHOUT CONTRAST; 09/18/2023 1:26 PM HISTORY: Right psoas hematoma. COMPARISON: September 14, 2023. PROCEDURE: Axial images were obtained from the lung bases to the pubic symphysis by computed tomography. This study was performed with techniques to keep radiation doses as low as reasonably achievable, (ALARA). Individualized dose reduction techniques using automated exposure control or adjustment of mA and/or kV according to the patient size were employed. FINDINGS: ABDOMEN: A 5 mm nodule in the right middle lobe is stable. There are moderate bilateral pleural effusions. There is bibasilar consolidation. The gallbladder is absent. There is mild right hydronephrosis. There is no nephrolithiasis. The left kidney is unremarkable. There is extensive stool throughout the colon. PELVIS: Anasarca is noted. There is trace ascites. The urinary bladder is unremarkable. There is fecal impaction in the rectal vault. Impression: Pleural effusions and bibasilar consolidation, probably secondary to pneumonia. Follow-up to complete resolution recommended. Mild right hydronephrosis of uncertain etiology. Constipation. Images reviewed, interpreted, and dictated by Jairo Acosta MD MR spine cervical without IV contrast [[id number]] Collected: 09/17/23 0816 Order Status: Completed Updated: 09/17/23826 Narrative: MRI CERVICAL SPINE HISTORY: Increasing weakness after fall a few days. COMPARISON:Outside study from September 06, 2023 PROCEDURE: Multiplanar MR imaging of the cervical spine was performed in multiple MR sequences. FINDINGS: Exam is Limited secondary to significant motion artifact. Limited images of the posterior fossa are unremarkable. In the region of the right sternocleidomastoid muscle is a loculated high T2 signal within the fluid fluid level measuring up to 2.6 cm. Could potentially be secondary to hematoma, correlate clinically. Alignment appears appropriate without evidence of fracture. Assessment of the cervical cord is extremely limited. C2-C3: Disc osteophyte complex abuts thecal sac anteriorly, central canal and neural foramen appear patent. C3-C4: Disc osteophyte complex abuts thecal sac, central canal remains patent, moderate right and mild left foraminal narrowing. C4-C5: Disc osteophyte complex, asymmetric to the right. There is mild narrowing of the central canal and moderate to severe narrowing of the right and moderate narrowing of the left neural foramen. C5-C6: Disc osteophyte complex, asymmetric to the right. This abuts thecal sac anteriorly. Central canal remains patent, moderate right neural foraminal narrowing. C6-C7: Disc osteophyte complex, no central canal stenosis, mild narrowing of the bilateral neural foramen. C7-T1: No significant disc disease is present. There is no canal stenosis. Impression: Exam limited by motion artifact. Multilevel spondylosis and stenosis as above. In the region of the right sternocleidomastoid muscle is a loculated high T2 signal within the fluid fluid level measuring up to 2.6 cm. Could potentially be secondary to hematoma, correlate clinically. Images reviewed, interpreted, and dictated by Bossman Ramirez DO . IMPRESSION: 1. Pyuria with possible acute bacterial cystitis. Urine culture from 09/11 negative. Partially treated. 2. Right hip hematoma after fall 09/05/2023. X-ray without fracture on 09/15. Right psoas muscle with intramuscular hematoma from CT abdomen and pelvis 09/13. 3. Right sternocleidomastoid muscle loculated signal, potential hematoma seen on MRI 09/16. 4. Reported chest x-ray infiltrate resolved. Could have had atelectasis, and is at risk for pulmonary embolus given demonstration of new DVT. CT scan of the abdomen and pelvis with basilar infiltrate. 5. DVT right lower leg soleus and peroneal veins positive duplex 09/13/2023. 6. Leukocytosis, neutrophilic related to above issues. Worse. May be related to cystitis versus other. Blood cultures x 2 from 09/11 negative. 7. Hyponatremia related to above issues, medications, possible SIADH, versus other. 130. Ongoing. 8. Anemia, related to above issues and right hip hematoma. Minimally worse. 9. Hypocalcemia 8.0. 10. Elevated transaminase with ALT 213, ongoing, AST 308, ongoing, total bilirubin 0.9, alkaline phosphatase 45. Reportedly CT scan abdomen and pelvis at outside hospital without significant pathology. May need to repeat ultrasound versus other. Likely also related to muscle injury. 11. Rhabdo, CK 2217, ongoing. Related to her recent fall and trauma to leg. 12. Encephalopathy, toxic and metabolic. MRI brain without intracranial abnormalities from 09/16. PLAN: 1. Diagnostically, continue to follow patient's physical exam, CBC, CMP, CRP. 2. Therapeutically, discontinue doxycycline and ceftriaxone on 09/19 and reassess. Then follow off antibiotics. This provided coverage for possible pneumonia or urinary tract infection. 3. Supportive care. Room air on 09/13/2023. Orthopedics, nephrology, neurology evaluating. I discussed the patient's findings and my recommendations with the patient and nursing. Thank you for asking me to see Birgit Estrada. Our group would be pleased to follow this patient over the course of their hospitalization and assist with outpatient antimicrobial therapy, as indicated. Further recommendations depend on the results of the cultures and clinical course. Increased riskfor adverse drug reactions, complications of IV access, need for surgery, readmission. I prev discussed with the patient's son, and the patient's daughter. Sim Cole MD 09/20/2023 * Ananda Montgomery, PT - 09/19/2023 3:28 PM EDT Images from the original note were not included. Inpatient Physical Therapy Treatment Patient Name: Birgit Estrada Date of : 1950 Date of Treatment: 09/19/23 Start Time 1500 Stop Time 1528 Session Duration 28 minutes General Visit Type: Treatment Approved by: Nurse [id number] Patient Disposition Upon Entry: Supine in bed, Call Light/Pull Cord in reach, HOB >30 degrees, Visitor/Family present Patient Verified By: Name and Date of Assisted by: tv technician ?? Precautions Weight-Bearing Status: Weight Bearing As Tolerated (WBAT), RLE Precautions: Fall risk, Bilat Poddus Boots on feet Isolation Precautions: Standard Subjective Subjective: Patient agreeable to physical therapy treatment. She states would like to work on sitting adn standing adn needs to take a bowel movement. Pain Yes. right tight with knee flexion 8/10 Cognition Overall cognitive status: Impaired Arousal/Alertness: Delayed response to stimuli Orientation Level: Oriented to situation, Oriented to person Following commands: Follows one step commands with repetition Treatment Functional Bed/Transfer Mobility Training Supien to sit edge of bed Mod A X 2 sat edge of bed 2 min then work tranfer bed to bedside toilet, following toleting for bowel movement 2X stand to clean bottom Max A x 1. Then transfer back to bed with pivot transfer max A x 1, Sat Edge fo bed x 5 min then Mod A x 2 back to supine, draw sheet up into bed for centered in bed, PODDUS Boots on feet all of treatment. Hand off to nursing who was empty pure wick cannister. Gait Not safe to attempt due to medical condition or safety AM-PAC Basic Mobility Inpatient Short Form How much difficulty does the patient currently have: Turning over in bed (including adjusting bedclothes, sheets, and blankets)? (1) Total/Unable (not able to do the activity or can only perform the activity using assistive devices or requires assistance from another person, including supervision or cueing for safety) Sitting down on and standing up from a chair with arms (e.g., wheelchair, bedside commode, etc.)? (1) Total/Unable (not able to do the activity or can only perform the activity using assistive devices or requires assistance from another person, including supervision or cueing for safety) Moving from lying on back to sitting on side of bed? (1) Total/Unable (not able to do the activity or can only perform the activity using assistive devices or requires assistance from another person,including supervision or cueing for safety) How much help from another person does the patient currently need: Moving to and from a bed to a chair (including a wheelchair)? (1) Total/Unable (Total assist/dependent) Need to walk in hospital room? (1) Total/Unable (Total assist/dependent) Climbing 3-5 steps with a railing? (1) Total/Unable (Total assist/dependent) Score Raw score=6 t-Scale score=23.55 Standard error=4.57 CMS 0-100%=100.00% MDC=4.72 A raw score of >= 16 is significantly associated with increased odds of discharge to home in addition to consideration made for the patient's cognition and social determinants of health. Balance Static/dynamic sitting and static/dynamic standing balance grades Balance Grade Sitting Static Fair - patient able to maintain balance with handhold support; may require occasional minimal assistance Sitting Dynamic Poor - patient unable to accept challenge or move without loss of balance Standing Static Poor - patient requires handhold support and moderate to maximal assistance to maintain position Standing Dynamic Poor - patient unable to accept challenge or move without loss of balance Activity Tolerance Patient tolerated activity/intervention well with no complaints or adverse events. Assessment Good effort with bed mobiluity and transfers, decreased level asistance from max x 2 to Mod x 2 on bed mobility. Patient comfortable in bed with handoff to nursing. Problems: Decreased core stability, Decreased functional mobility, Decreased strength, Impaired sitting balance, Impaired standing balance, Restricted ROM, Pain Rehab potential: Good for stated goals except gaurded for gait Plan Treatment Plan:??Therapeutic Exercise, Therapeutic Activity, Gait Training, Transfer Training, Balance Training, Stair Training, Strengthening, Home Exercise Program, ROM, Patient/Family/Caregiver Education, DME Recommendations, Stretching, Co-Treat with OT PT Frequency/Duration:??5x/week for 14 days ?? Recommendations Discharge recommendations:??Patient would benefit from 3 hours of intensive multidisciplinary therapy per day to maximize functional outcomes and address functional limitations to return to highest level of functioning. ?? DME recommendations:??no needs if discharging to rehab ?? Goals Supine to/from sit:??mod I with rail Sit to/from stand:??SBA with RWx Gait:??150 ft SBA with RWx Stair Negotiation:??1 stair, no rail min A Target Date:?09/27/2023 Progress towards goals: progressing with bed mobility and transfer goals no progress for gait goal Education Verbal and tactile cues with bed mobility and transfer training Patient Disposition Upon Leaving Supine in bed, Call Light/Pull Cord in reach, Nursing aware/notified If this patient discharges prior to next therapy session, this note serves as the patient's discharge summary. Electronically signed by Ananda Montgomery PT - 09/19/23 - 3:28 PM EDT * Cornelius Mccarty MD - 09/19/2023 12:13 PM EDT Subjective Awake No nausea or vomiting No fever Last Recorded Vitals Blood pressure 116/53, pulse 72, temperature 98.2 ??F (36.8 ??C), temperature source Oral, resp. rate 17, height 1.6 m (5' 3 ), weight 48.5 kg (107 lb), SpO2 91 %. Physical Exam Head atraumatic normocephalic Pupils round and reactive Eyes no conjunctival injection or discharge Ears no discharge Nose no bleeding or discharge Mouth dry Neck supple forage of motion Chest diminished entry bilaterally no wheezes heart S1 and S2 healed regular rate Abdomen soft audible bowel sounds Extremities bilateral extremity edema with right hip discoloration Neurological patient alert awake move extremities Psychiatric anxiety Skin right hip area discoloration Labs: Results for orders placed or performed during the hospital encounter of 09/12/23 (from the past 24 hour(s)) Basic Metabolic Panel Status: Abnormal Collection Time: 09/19/23 2:40 AM Result Value Ref Range Sodium 130 (L) 136 - 146 meq/L Potassium 5.0 3.5 - 5.1 meq/L Chloride 100 (L) 102 - 112 meq/L CO2 28 21 - 32 meq/L Anion Gap 7 (L) 9 - 20 BUN 27 (H) 7 - 22 mg/dL Creatinine 0.80 0.55 - 1.02 mg/dL BUN/Creatinine 34 (H) 8 - 20 Glucose 110 (H) 74 - 106 mg/dL Calcium 8.2 (L) 8.4 - 10.1 mg/dL Osmolality Calc 266.6 eGFR (mL/min/1.73m2) >60 >=60 mL/min/1.73m2 CBC - Hemogram ([facility]-B[facility]) Status: Abnormal Collection Time: 09/19/23 2:40 AM Result Value Ref Range WBC 15.7 (H) 4.0 - 10.0 K/??L RBC 2.66 (L) 3.93 - 5.22 M/??L Hemoglobin 8.2 (L) 11.2 - 15.7 GM/DL Hematocrit 24.8 (L) 34.1 - 44.9 % MCV 93 79 - 95 fL MCH 30.8 25.6 - 32.2 pg MCHC 33.1 32.2 - 35.5 GM/DL RDW 15.0 (H) 11.7 - 14.4 % Platelets 251 140 - 375 K/CU MM MPV 9.8 9.4 - 12.3 fL Ammonia Status: Normal Collection Time: 09/19/23 2:40 AM Result Value Ref Range Ammonia 18 11 - 32 ??mol/L Creatine Kinase (CK) Status: Abnormal Collection Time: 09/19/23 2:40 AM Result Value Ref Range Total CK 538 (H) 26 - 192 U/L CT ABDOMEN/PELVIS WITHOUT IV CONTRAST Standard Protocol Narrative: CT SCAN OF THE ABDOMEN AND PELVIS WITHOUT CONTRAST; 09/18/2023 1:26 PM HISTORY: Right psoas hematoma. COMPARISON: September 14, 2023. PROCEDURE: Axial images were obtained from the lung bases to the pubic symphysis by computed tomography. This study was performed with techniques to keep radiation doses as low as reasonably achievable, (ALARA). Individualized dose reduction techniques using automated exposure control or adjustment of mA and/or kV according to the patient size were employed. FINDINGS: ABDOMEN: A 5 mm nodule in the right middle lobe is stable. There are moderate bilateral pleural effusions. There is bibasilar consolidation. The gallbladder is absent. There is mild right hydronephrosis. There is no nephrolithiasis. The left kidney is unremarkable. There is extensive stool throughout the colon. PELVIS: Anasarca is noted. There is trace ascites. The urinary bladder is unremarkable. There is fecal impaction in the rectal vault. Impression: Pleural effusions and bibasilar consolidation, probably secondary to pneumonia. Follow-up to complete resolution recommended. Mild right hydronephrosis of uncertain etiology. Constipation. Images reviewed, interpreted, and dictated by Jairo Acosta MD Assessment #1 hyponatremia Patient mid to the hospital from nephrology evaluation will check electrolytes start IV fluid CT of chest done with no apparent malignancy ?? 2 pneumonia patient already on IV Zosyn doxycycline breathing treatment oxygen cultures ordered ?? #3 dehydration patient started on IV fluid ?? #4 anxiety restart Xanax as needed ?? #5 hypertension start hydralazine as needed ?? #6 GI prophylaxis Pepcid ?? #7 right hip hematoma will consult Ortho start pain control ? #8 DVT prophylaxis 09/19/2023 Plan Altered mental status/acute encephalopathy Consult neurology Improving Lower extremity deep vein thrombosis Blood transfusion if needed Patient with pleural effusion No aggressive management Sodium level improving palliative care Patient will need placement when medically stable Patient has rhabdomyolysis we will check CK in a.m. Need to be switched to oral anticoagulation Hemoglobin is stable Discussed with Dr. Wakefield Discharge Planning: Patient Not medically stable to be discharge Expect patient to be discharged Wednesday case management following * Haven Mooney MD - 09/19/2023 9:29 AM EDT Subjective: Seen and examined at bedside. No acute events overnight. No new complain No CP, SOA, N/V, fever, chills or rash Objective: Blood pressure 105/52, pulse 80, temperature 98.6 ??F (37 ??C), temperature source Oral, resp. rate17, height 1.6 m (5' 3 ), weight 48.5 kg (107 lb), SpO2 100 %. Intake/Output Summary (Last 24 hours) at 09/19/2023 0929 Last data filed at 09/19/2023 0800 Gross per 24 hour Intake 477 ml Output 1250 ml Net -773 ml 09/17 07 - 09/18 0659 In: 473 [P.O.:473] Out: 1250 [Urine:1250] Physical Exam: Gen: Alert, NAD HEENT: NC, AT Neck: Supple, no JVD Lungs: CTA. Non labored, symetrical chest expansion CVS: SI/S2 audible. RRR, No M/G noted Abd: soft, NT, ND, BS + Ext: + Pedal edema , no cyanosis UG DESIGNER: Alert, No focal deficit noted grossly Psy: Cooperative Labs: Recent Labs Lab(s) Units 09/19/23 0240 09/18/23 0646 09/17/23 0409 WBC K/??L 15.7* 14.9* 15.1* HGB GM/DL 8.2* 8.1* 6.9* PLT K/CU MM 251 234 232 Recent Labs Lab(s) Units 09/19/23 0240 09/18/23 1154 09/18/23 0648 09/18/23 0239 09/17/23 0812 09/17/23 0409 09/16/23 0831 09/16/23 0221 09/14/23 1325 09/14/23 0249 09/13/23 0148 09/12/23 1808 NA meq/L 130* 130* 130* 131* 130* < > 131* 131* < > 125* < > 124* < > 121* K meq/L 5.0 4.8 -- -- -- 3.8 -- 4.3 < > 4.1 < > 4.4 CL meq/L 100* 98* -- -- -- 97* -- 92* < > 94* < > 88* CO2 meq/L 28 28 -- -- -- 29 -- 29 < > 24 < > 27 BUN mg/dL 27* 22 -- -- -- 20 -- 16 < > 22 < > 30* CREATININE mg/dL 0.80 0.73 -- -- -- 0.68 -- 0.69 < > 0.80 < > 1.03* CALCIUM mg/dL 8.2* 8.4 -- -- -- 7.9* -- 8.6 < > 8.0* < > 8.2* ALBUMIN g/dL -- -- -- -- -- 2.2* -- -- -- 2.3* -- 2.9* < > = values in this interval not displayed. A/P: 1- Hyponatremia- Asymptomatic - 119 at presentation at [facility]. 121 at [facility].-Urine osmolarity 892, urinesodium less than 15, serum osmolarity 261. At home on HCTZ - Improving - 130 today 2- Hypertension 3- Right hip hematoma 4- Right lower extremity DVT. 5- Anemia 6- Elevated liver enzymes -improving. ?? Plan: - Fluid restriction - lasix 20 mg bid - Salt tablet 1 gm once - Serial sodium monitoring. - May need 3% saline infusion if further drop in sodium below 120. Haven Mooney MD 09/19/23 2:31 PM * Cornelius Mccarty MD - 09/18/2023 4:39 PM EDT Subjective Patient confused Awake No nausea or vomiting No fever Last Recorded Vitals Blood pressure 122/54, pulse 87, temperature 97.9 ??F (36.6 ??C), resp. rate 18, height 1.6 m (5' 3 ), weight 48.5 kg (107 lb), SpO2 96 %. Physical Exam Head atraumatic normocephalic Pupils round and reactive Eyes no conjunctival injection or discharge Ears no discharge Nose no bleeding or discharge Mouth dry Neck supple forage of motion Chest diminished entry bilaterally no wheezes heart S1 and S2 healed regular rate Abdomen soft audible bowel sounds Extremities bilateral extremity edema with right hip discoloration Neurological patient alert awake move extremities Psychiatric anxiety Skin right hip area discoloration Labs: Results for orders placed or performed during the hospital encounter of 09/12/23 (from the past 24 hour(s)) Sodium Status: Abnormal Collection Time: 09/17/23 7:12 PM Result Value Ref Range Sodium 130 (L) 136 - 146 meq/L Sodium Status: Abnormal Collection Time: 09/17/23 11:19 PM Result Value Ref Range Sodium 130 (L) 136 - 146 meq/L Sodium Status: Abnormal Collection Time: 09/18/23 2:39 AM Result Value Ref Range Sodium 130 (L) 136 - 146 meq/L CBC - Hemogram Status: Abnormal Collection Time: 09/18/23 6:46 AM Result Value Ref Range WBC 14.9 (H) 4.0 - 10.0 K/??L RBC 2.60 (L) 3.93 - 5.22 M/??L Hemoglobin 8.1 (L) 11.2 - 15.7 GM/DL Hematocrit 23.3 (L) 34.1 - 44.9 % MCV 90 79 - 95 fL MCH 31.2 25.6 - 32.2 pg MCHC 34.8 32.2 - 35.5 GM/DL RDW 14.6 (H) 11.7 - 14.4 % Platelets 234 140 - 375 K/CU MM MPV 9.9 9.4 - 12.3 fL Sodium Status: Abnormal Collection Time: 09/18/23 6:48 AM Result Value Ref Range Sodium 131 (L) 136 - 146 meq/L Sodium Status: Abnormal Collection Time: 09/18/23 11:54 AM Result Value Ref Range Sodium 130 (L) 136 - 146 meq/L CT ABDOMEN/PELVIS WITHOUT IV CONTRAST Standard Protocol Narrative: CT SCAN OF THE ABDOMEN AND PELVIS WITHOUT CONTRAST; 09/18/2023 1:26 PM HISTORY: Right psoas hematoma. COMPARISON: September 14, 2023. PROCEDURE: Axial images were obtained from the lung bases to the pubic symphysis by computed tomography. This study was performed with techniques to keep radiation doses as low as reasonably achievable, (ALARA). Individualized dose reduction techniques using automated exposure control or adjustment of mA and/or kV according to the patient size were employed. FINDINGS: ABDOMEN: A 5 mm nodule in the right middle lobe is stable. There are moderate bilateral pleural effusions. There is bibasilar consolidation. The gallbladder is absent. There is mild right hydronephrosis. There is no nephrolithiasis. The left kidney is unremarkable. There is extensive stool throughout the colon. PELVIS: Anasarca is noted. There is trace ascites. The urinary bladder is unremarkable. There is fecal impaction in the rectal vault. Impression: Pleural effusions and bibasilar consolidation, probably secondary to pneumonia. Follow-up to complete resolution recommended. Mild right hydronephrosis of uncertain etiology. Constipation. Images reviewed, interpreted, and dictated by Jairo Acosta MD Assessment #1 hyponatremia Patient mid to the hospital from nephrology evaluation will check electrolytes start IV fluid CT of chest done with no apparent malignancy ?? 2 pneumonia patient already on IV Zosyn doxycycline breathing treatment oxygen cultures ordered ?? #3 dehydration patient started on IV fluid ?? #4 anxiety restart Xanax as needed ?? #5 hypertension start hydralazine as needed ?? #6 GI prophylaxis Pepcid ?? #7 right hip hematoma will consult Ortho start pain control ? #8 DVT prophylaxis 09/17/2023 Plan Altered mental status/acute encephalopathy Consult neurology Improving Lower extremity deep vein thrombosis Blood transfusion Patient with pleural effusion No aggressive management Sodium level improving palliative care Patient will need placement when medically stable Discharge Planning: Patient Not medically stable to be discharge Expect patient to be discharged Wednesday afternoon case management following * Nathaniel Wakefield MD - 09/18/2023 10:53 AM EDT Subjective Since I last saw the patient on September 15, the following has happened: 1) the patient still complains of pain in her lower extremities. She says her thighs feel like theyare burning. When I try to palpate her calves particularly the right She complains of pain. For her pain she is on Neurontin 300 mg twice a day which I started 3 days ago. She is also receiving narcotics. She is ordered oxycodone 5 mg every 4 hours as needed for pain. She received 4 doses of this oxycodone on September 14, 3 doses on September 15, 2 doses on September 16 and so far she has received 2 doses today. Additionally for pain she is ordered morphine 2 mg every 4 hours IV as needed. She did not receive any doses on September 15. She received 1 dose at 3 AM on September 16 and another dose at 9 AM this morning. She also has Flexeril 10 mg 3 times a day ordered as needed. She has received 1 dose of this each day for the last 3 days. 2) overall she feels that her leg weakness is the same and she is unable to functionally use her legs in a functional manner. However the nurse tells me there may be a little bit more mobility in her legs. Physical therapy worked with the patient yesterday and noted the following: Bed Mobility: Rolling Left: maximal assistance, 2-person assist Rolling Right: maximal assistance, 2-person assist Supine to Sit: maximal assistance, 2-person assist, HOB elevated, to the right Sit to Supine: total assistance / dependent Bed Scooting: total assistance / dependent ?? Transfers Sit to Stand: moderate assistance, maximal assistance, 2-person assist, rolling walker used Stand to Sit: moderate assistance, maximal assistance, 2-person assist, rolling walker used ?? Gait Not safe to attempt due to medical condition or safety Therapy attempted to work with the patient today and noted the following: There Ex Only today she declined any mobility training due to pain and tired: Tactile and verbal cues AROM Bilat PNF Elbow Flex/Ext 10X then scapular plane shoulder IR/ER 10X next Scaption elevation 15X/arm, Left leg AAROM Hip Abd/Add, heel slide and Fig 4 10X each with end raneg stretch, right legHip Abd/Add and AAROM Knee Flexion to pain tolerance 10X each. ? 3) I have spoken twice to Dr. Mooney over the last few days about the patient's hyponatremia and swelling of her lower extremities. Dr Mooney has done several things over the last few days to try to reduce the swelling and increase the patient's sodium. Initially , on September 15 Dr. Mooney was going to try sodium chloride tablets but later Dr. Mooney decided against this and the patient has not received any sodium chloride tablets. She has received 4 doses of IV 20 mg Lasix since September 14. She received 1 dose at 2 AM on September 14, second dose at 2 PM on September 15. Additionally she received 2doses of Lasix 20 mg IV on September 16 (1 at 1 AM and the second at 2 PM). She is not on any scheduled Lasix. Additionally in an attempt to increase the patient's sodium, and reduce lower extremity swelling, Dr. Tom ordered another dose of 25 g of IV albumin which was given yesterday. Therefore she has received 2 doses of albumin this admission. The first dose was 25 g on September 14 and the second dose was 25 g on September 16. The lab has been obtaining serum sodium levels every 4 hours since September 13. Apparently , her sodium at presentation at [facility] on September 07 was 119. Time of transfer here on September 11 her sodium was 121. Patient had 3 sodium levels checked on September 12. The highest level was on the evening of September 12 at 125. The patient had 5 sodium levels checked on September 13. The highest was 126. The patient had 5 sodium levels checked on September 14. Again the highest level was 126 and at 1 time the sodium level was 124 on September 14. Patient had 5 sodium levels checked on September 15. The highest level was 128 and the lowest level was 125. The level of 128 was at 8 PM on September 15. Patient had 6 sodium levels checked yesterday on September 16. After midnight on September 16 her sodium was 128. However the last sodium level checked on September 16 roughly 11 PM was 130. Far she has had 2 sodium levels checked today on September 17. Early this morning at 2 AM it was 130 andthis morning at 7 AM it is at 131. 4) the staff note that over the last couple days the patient's swelling in her lower extremities has decreased. In an attempt to reduce swelling and to help with her foot drop, particularly on the right, the patient now has JAMEY hose on both lower extremities as well as bilateral SCDs and Multi-Podus boots. 5) on September 12, the attending Dr. Mccarty ordered a venous ultrasound of her lower extremities (I assume to try to find a source of pain and swelling in her lower extremities). This study done on September 12 did show a DVT in the right peroneal vein and soleal vein that appeared acute. When Dr. Mccarty first found out about the DVT in the right lower extremity, he initially consideredordering an IV heparin drip but decided against this given the patient's extensive ecchymosis ease in her proximal legs. Dr. Mccarty on September 12 did consult the vascular surgery service given the DVT and the concern for potential risk of anticoagulation. Dr. Cadet of the vascular surgery service on September 12 however felt that the potential benefits of anticoagulation given the right lower extremity outweighed the risk of worsening ecchymosis ease andtherefore the vascular surgery service started the patient on therapeutic Lovenox on September 12 at 50 mg twice a day for which she is still receiving. On September 15 , I did speak to one of the physician extenders on the vascular surgery service who tells me that their service would be happy to place an IVC filter if a clinical decision was made thatthe potential risk of anticoagulation outweighed the benefit. 6) at time of transfer here on , her hemoglobin was 8.5 with a hematocrit of 23.6. Up until yesterday, the hemoglobin and crit have been relatively stable. However yesterday on blood work it was detected that her hemoglobin had dropped to 6.9 and her hematocrit had dropped to 20.3. Therefore yesterday the patient received a blood transfusion and her hemoglobin today is 8.1 with ahematocrit of 23.3. Her platelet count has been stable this admission despite being on therapeutic Lovenox. Her platelet count at time of transfer on September 11 was 181 and today it is 234. 7) as part of a workup of her severe leg weakness, I did have a MRI of her cervical and thoracic spine performed. The studies were performed and only showed nonspecific changes would not be causing the severe leg weakness. However the radiologist in reading the cervical MRI noted that there was an area of heightened T2 signal within the right sternocleidomastoid muscle measuring up to 2.6 cm that could potentially be secondary to a hematoma. The patient does not remember any specific injury or trauma to the right side of her neck and does not complain of any specific pain on the right side of her neck. 8) in part of the workup of her severe leg weakness, I did order x-rays of her bilateral femurs. This showed no structural problem of her femurs to cause her symptoms. 9) As part of the workup of her leg weakness I sent off a CK on September 14 that was elevated at 3300. I repeated another CK on September 15 which had decreased to 2200. I repeated a third CK yesterday on September 16 that had dropped again to 1200. I do not know if a CK was checked when she was an inpatient at [facility]. 10) the patient has been noted to have elevated liver enzymes this admission. On September 11 her AST was 216 but yesterday had improved to 98. On transfer on September 11 her ALT was 163 and her ALT he had improved to 138 yesterday. 11) staff tells me over the last couple days there has been some episodes of confusion on behalf ofthe patient. For instance at night sometimes she calls her family reporting to them that she feels that she is at home. Current Facility-Administered Medications: ??? acetaminophen (TYLENOL) tablet 650 mg, 650 mg, Oral, Q6H PRN ??? ALPRAZolam (XANAX) tablet 0.5 mg, 0.5 mg, Oral, Q4H PRN ??? cefTRIAXone (ROCEPHIN) 2 g in sodium chloride 0.9 % (NS) MBP 50 mL IVPB, 2 g, Intravenous, Q24H ??? cloNIDine HCL (CATAPRES) tablet 0.1 mg, 0.1 mg, Oral, Q8H PRN ??? cyclobenzaprine (FLEXERIL) tablet 10 mg, 10 mg, Oral, TID PRN ??? docusate sodium (COLACE) capsule 100 mg, 100 mg, Oral, BID PRN ??? doxycycline (VIBRAMYCIN) 100 mg in sodium chloride 0.9 % (NS) MBP 100 mL IVPB, 100 mg, Intravenous, Q12H ??? enoxaparin (LOVENOX) syringe 50 mg, 50 mg, Subcutaneous, Q12H ??? famotidine (PEPCID) tablet 20 mg, 20 mg, Oral, BID ??? gabapentin (NEURONTIN) capsule 300 mg, 300 mg, Oral, BID ??? hydrALAZINE (APRESOLINE) injection 10 mg, 10 mg, Intravenous, Q4H PRN ??? ipratropium-albuteroL (DUO-NEB) 0.5-2.5 (3) mg/3 mL nebulizer solution 3 mL, 3 mL, Nebulization, Q4H PRN ??? melatonin tablet 6 mg, 6 mg, Oral, Every Night PRN ??? morphine injection 2 mg, 2 mg, Intravenous, Q4H PRN ??? ondansetron (ZOFRAN-ODT) disintegrating tablet 4 mg, 4 mg, Oral, Q8H PRN OR ondansetron PF (ZOFRAN) injection 4 mg, 4 mg, Intravenous, Q8H PRN ??? oxyCODONE (ROXICODONE) immediate release tablet 5 mg, 5 mg, Oral, Q4H PRN ??? polyethylene glycol (GLYCOLAX) packet 17 g, 17 g, Oral, Daily PRN ??? polyethylene glycol (GLYCOLAX) packet 17 g, 17 g, Oral, Daily ??? senna-docusate (SENOKOT S) tablet 8.6-50 mg, 1 tablet, Oral, Every Night ??? Insert Peripheral IV, , , Once AND Saline Lock IV, , , Once AND sodium chloride 0.9% (NS) flush 10 mL, 10 mL, Intravenous, PRN ??? [COMPLETED] Prepare RBC: 1 Units, Leukoreduced, , , Once AND Transfuse RBC: 1 Units, Leukoreduced, , Intravenous, Transfusion AND sodium chloride 0.9% (NS) infusion, 250 mL, Intravenous, Once Review of Systems ID -the infectious disease service with Dr. Cole has been following the patient. The patient iscurrently on IV Rocephin and IV doxycycline since September 11 for the possibility of cystitis and/or pneumonia. Objective Last Recorded Vitals Blood pressure 123/49, pulse 74, temperature 98.1 ??F (36.7 ??C), resp. rate 18, height 1.6 m (5' 3 ), weight 48.5 kg (107 lb), SpO2 98 %. Physical Exam Her facies are symmetric. Extraocular moods are intact she is alert and orient x 3 she has 5 out of5 strength in both arms. I did take the Multi-Podus boots, JAMEY wilsone and SCDs off her legs transiently to evaluate her legs. The swelling in her legs is much improved from when I saw her on September 15. I did examine her bruising on the thighs. There is still extensive ecchymosis sees over her right posterior thigh and left lateral thigh. I now see some ecchymoses over her left posterior thigh as well. I did measure her circumference of her thigh and calf. 10 cm above the knee on the right there are circumference is roughly 42.5 cm. 10 cm below the knee on the right the calf is roughly 30.5 cm. On the left her circumference of her left thigh 10 cm above the knee is 41 cm. On the left the circumference of her calf 10 cm below the knee is 30 cm. The pitting edema on both calfs is much improved but still mildly present. The patient had about 1 out of 5 strength in her right hip flexor and 1-2 out of 5 strength in her left hip flexor. The patient was unable to bend her right knee but had about 1-2 at 5 strength in her left knee flexion. She had about 4-5 strength in her left ankle dorsiflexion and plantarflexion. She is starting to get trace movement in her dorsiflexion of her right foot and plantarflexion of her left foot which is improved from a couple of days ago. Labs: Results for orders placed or performed during the hospital encounter of 09/12/23 (from the past 24 hour(s)) Sodium Status: Abnormal Collection Time: 09/17/23 2:38 PM Result Value Ref Range Sodium 130 (L) 136 - 146 meq/L Sodium Status: Abnormal Collection Time: 09/17/23 7:12 PM Result Value Ref Range Sodium 130 (L) 136 - 146 meq/L Sodium Status: Abnormal Collection Time: 09/17/23 11:19 PM Result Value Ref Range Sodium 130 (L) 136 - 146 meq/L Sodium Status: Abnormal Collection Time: 09/18/23 2:39 AM Result Value Ref Range Sodium 130 (L) 136 - 146 meq/L CBC - Hemogram Status: Abnormal Collection Time: 09/18/23 6:46 AM Result Value Ref Range WBC 14.9 (H) 4.0 - 10.0 K/??L RBC 2.60 (L) 3.93 - 5.22 M/??L Hemoglobin 8.1 (L) 11.2 - 15.7 GM/DL Hematocrit 23.3 (L) 34.1 - 44.9 % MCV 90 79 - 95 fL MCH 31.2 25.6 - 32.2 pg MCHC 34.8 32.2 - 35.5 GM/DL RDW 14.6 (H) 11.7 - 14.4 % Platelets 234 140 - 375 K/CU MM MPV 9.9 9.4 - 12.3 fL Sodium Status: Abnormal Collection Time: 09/18/23 6:48 AM Result Value Ref Range Sodium 131 (L) 136 - 146 meq/L ECHO COMPLETE (DOPPLER / COLOR) W OR WO CONTRAST TRANSTHORACIC ECHOCARDIOGRAPHY REPORT Demographics Patient Name: SEAN REILLY : 1950 Age: 73 year(s) Corporate ID Number: [id number] Gender Female 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 Patient Status: Routine [facility] Good visualization Impression: ######################################## Indication: Shortness of breath R06.02 Normal sized left ventricle. Normal left ventricular wall thickness. Visually estimated ejection fraction 65% +/- 5%. Normal left ventricular systolic function. Normal left ventricular diastolic function. No hemodynamically significant valvular heart disease. ######################################## Measurements Summary: LVEDd: 3.04 cm LVESd: 1.88 cm IVSEd: 0.85 cm AO Root:3.18 cm LVPWd: 0.83 cm Contractility Score Normal Left Ventricular contractility was noted. LV regional wall motion: (0-Not visualized 1-Normal 2-Hypokinesis 3-Akinesis 4-Dyskinesis 5-Aneurysm) Left Ventricle Peak E-wave: 0.95 Peak A-wave: 1.17 m/s E/A ratio: 0.81 m/s Volume [id number] LV length: 6.37 cm ml Volume [id number] ml LVOT diameter: 1.76 cm Normal sized left ventricle. Normal left ventricular wall thickness. Visually estimated ejection fraction 65% +/- 5%. Normal left ventricular systolic function. Unable to obtain bullseye average for strain due to irregular heart rhythm. Normal left ventricular diastolic function. No left ventricular masses or thrombi. Right Ventricle Diastolic dimension: 2.13 RV systolic pressure: 25.52 mmHg cm Normal sized right ventricle. Normal TAPSE c/w normal right ventricular function Left Atrium LA dimension: 2.2 cm LA volume:33.91 ml LA/Aorta: 0.69 Normal sized left atrium. Normal left atrial volume index Intact atrial septum. No atrial mass or thrombus. Right Atrium Normal sized right atrium. Intact atrial septum. No atrial mass or thrombus. Mitral Valve Deceleration time: 219.45 msec Thickened mitral valve leaflets. Trace mitral regurgitation. No mitral stenosis. No masses or vegetations seen. Aortic Valve LVOT VTI: 26.49 cm Mildly thickend free edges of the aortic valve leaflets. No aortic regurgitation. No aortic stenosis. No masses or vegetations seen. Tricuspid Valve TR velocity: 2.37 m/s TR gradient: 22.17323 mmHg Estimated RAP: 3 mmHg RVSP: 25.52 mmHg Structurally normal tricuspid valve. Mild (1+) tricuspid regurgitation. No tricuspid stenosis. No masses or vegetations seen. Pulmonic Valve Acceleration time: 129.18 msec PASP: 25.52 mmHg Structurally normal pulmonic valve. No pulmonic regurgitation. No pulmonic stenosis. No masses or vegetations seen. Great Vessels Aorta Aortic Root: 3.18 cm LVOT Diameter: 1.76 cm Visualized aorta is normal. Normal aortic root. No evidence of dissection. Normal IVC with appropriate collapse. Pericardium / Pleura No pericardial effusion. MR spine cervical without IV contrast Narrative: MRI CERVICAL SPINE HISTORY: Increasing weakness after fall a few days. COMPARISON:Outside study from September 06, 2023 PROCEDURE: Multiplanar MR imaging of the cervical spine was performed in multiple MR sequences. FINDINGS: Exam is Limited secondary to significant motion artifact. Limited images of the posterior fossa are unremarkable. In the region of the right sternocleidomastoid muscle is a loculated high T2 signal within the fluid fluid level measuring up to 2.6 cm. Could potentially be secondary to hematoma, correlate clinically. Alignment appears appropriate without evidence of fracture. Assessment of the cervical cord is extremely limited. C2-C3: Disc osteophyte complex abuts thecal sac anteriorly, central canal and neural foramen appear patent. C3-C4: Disc osteophyte complex abuts thecal sac, central canal remains patent, moderate right and mild left foraminal narrowing. C4-C5: Disc osteophyte complex, asymmetric to the right. There is mild narrowing of the central canal and moderate to severe narrowing of the right and moderate narrowing of the left neural foramen. C5-C6: Disc osteophyte complex, asymmetric to the right. This abuts thecal sac anteriorly. Central canal remains patent, moderate right neural foraminal narrowing. C6-C7: Disc osteophyte complex, no central canal stenosis, mild narrowing of the bilateral neural foramen. C7-T1: No significant disc disease is present. There is no canal stenosis. Impression: Exam limited by motion artifact. Multilevel spondylosis and stenosis as above. In the region of the right sternocleidomastoid muscle is a loculated high T2 signal within the fluid fluid level measuring up to 2.6 cm. Could potentially be secondary to hematoma, correlate clinically. Images reviewed, interpreted, and dictated by Bossman Ramirez DO MR Brain Without IV Contrast Narrative: MRI OF THE BRAIN HISTORY: Neuro deficit, acute, stroke suspected PROCEDURE: Multiplanar, multisequence MRI of the brain was performed without IV contrast. COMPARISON: CT 09/13/2023 FINDINGS: Diffusion weighted images demonstrate no evidence of acute infarct. No evidence of mass, hemorrhage or edema. Chronic small vessel ischemic white matter changes and generalized cerebral volume loss are present. The ventricles are prominent. There is no extra-axial collection or midline shift. Flow-voids are grossly preserved. Limited images of the proximal cord are unremarkable. Partial opacification of right sphenoid sinus. Small mastoid air cell effusions. Impression: No acute intracranial abnormalities. Images personally reviewed, interpreted and dictated by Sarwat Santos M.D. As stated above, the x-rays of both femurs are within normal limits. Assessment Birgit Estrada is a 73-year-old female with hypertension and depression who was transferred to our hospital on September 11 from the inpatient service at [facility] fpr further evaluation of hyponatremia after a September 04 fall at home . In talking with the son, the patient fell down on September 04 at home while trying to help her (who has Lewy body disease) change clothes. A couple hours after falling on September 04, she complained of hip pain and was taken to [facility] ER and released home after several x-rays were done. After being released from [facility] emergency room on September 04, the son has told me that the patient continued to have severe hip pain and was having nausea at home from September 04 through September 06. Due to the continued hip pain and the nausea, the son has told me the patient was taken back to [facility] emergency room apparently on September 07. According to the son, the patient walked into [facility] emergency room on September 07 and according to the records was found to have a sodiumlevel of 119 at that time. She was thus admitted to [facility] around September 07. According to the son for the first few days at [facility] the patient was walking with a walker but then he noticed that the patient was staying in bed on September 10 and the patient has been complaining of severe hip pain and leg weakness since that time. As stated above she was transferred to our hospital on September 11 largely for persistent hyponatremiaand as written above in my note the patient's sodium level on presentation here on September 11 was only 121. Since being transferred here on September 11 , there have been several medical issues that are being worked on at once. The patient's hyponatremia has been a persistent issue. Since September 13 her serum sodium has been checked by the lab every 4 hours. With the use of IV albumin (she received a dose on September 14 and September 16), the use of IV Lasix (she received 4 doses from September 13 through September 16), holding her home hydrochlorothiazide, her sodium level has started to go up close to normal levels over the last 2 days. On September 15 her sodium got up to 128 and on September 16 it was 130 and today it is 131. Another persistent issue has been leg swelling and leg pain along with severe bilateral leg weakness which is prohibiting her to ambulate and move about. I was asked to see her on September 12 for the leg weakness and she has had severe pitting edema and anasarca of her lower extremities. However over the last 2 days the pitting edema and anasarca have improved with the use of Lasix and/or getting her sodium increased. She also has JAMEY hose, SCDs and Multi-Podus boots which all may be helping with the swelling in herlower extremities. However her legs remain very weak. She has extensive ecchymosis ease in her proximal thighs. As part of the workup for leg weakness I did do MRIs of her spine and brain which showed no cause for her leg weakness. I did do a CT scan of her abdomen and pelvis looking for a retroperitoneal hematoma on September 13. This study suggested a possible area of hemorrhage in the right psoas muscle but I do not think this would be causing all of her symptoms. The radiologist also made note on the CT scan of her abdomen and pelvis that there is extensive anasarca particularly in the pelvis. Another issue has been the discovery of a right lower extremity DVT in her right peroneal vein and soleal vein that was picked up on a venous ultrasound on September 12. Due to this finding the patient has been on therapeutic Lovenox since September 12. Patient has been anemic since transfer here. Her hemoglobin on September 11 the time of transfer was 8.5 with a hematocrit of 23.6. Yesterday on September 16 however her hemoglobin had dropped to 6.9 and her hematocrit had dropped to 20.3. Therefore on September 16 she received a blood transfusion. She remains on therapeutic Lovenox. I have also noted this admission that the patient has had an elevated CK. I do not know if any CKs were checked at [facility] but her CK was elevated at 3300 on September 14 and the CK has improvedto 1200 by September 16. A vitamin B12 and folate level are normal. She does have extensive bruising of her bilateral posterior thighs which I assume is from the fall of September 04 . A vitamin B12 and folate level are normal. The differential for her bilateral leg weakness and pain could include one or combination of the followin) injury to the lumbar sacral plexus and/or injury to the sciatic nerves (and/or femoral nerves) from the fall of September 04 and/or resulting swelling and anasarca. 2) rhabdomyolysis and/or myopathy-her elevated CK noted on September 14) could be a sign that she may have suffered from rhabdomyolysis at some point in time. 4) Manifestation of a intramuscular psoas hematoma-I do note that the CAT scan of her abdomen and pelvis on September 13 suggested a possible hemorrhage in the right psoas muscle. However I do not think this would be causing all of her signs and symptoms. Not think this is causing all of her symptoms and signs. 5) Vasculitis. At this time I do not know the exact etiology of her bilateral leg weakness and pain and there are multiple potential causes. However I am encouraged she seemed to have slightly increased movement of her lower extremities today. I am also encouraged that the swelling has improved with either reduction of the sodium and/or JAMEY hose and/or SCDs. I am keeping an open mind on this case but I am suspicious that the majority of her symptoms and signs in her lower extremity may be due to rhabdomyolysis and/or swelling and anasarca. At this time, I recommend the following: ?? 1) At discharge she should follow-up with an outpatient neurologist not drive until released by physician. If her leg weakness persists she may eventually need an EMG/nerve conduction study of her lower extremities as an outpatient. 2) Given the possibility of an intramuscular hematoma in the right psoas as well as the drop in hemoglobin of September 16 requiring a blood transfusion, to continue weighing the risk and benefits of continuing anticoagulation for her recently discovered right lower extremity DVT. 3) I am going to increase her Neurontin to 300 mg times a day. 4) continue treating underlying medical conditions as you are. 5) I agree with physical therapy. 6) I agree with medical maneuvers to try to normalize her sodium and/or decrease lower extremity swelling and/or anasarca. 7) continue SCDs and JAMEY hose which I think are both helping with the lower extremity swelling. I also agree with the Multi-Podus boots. 8) if it is ever decided that the risk of anticoagulation outweigh the benefits, we may need to reconsult vascular surgery to consider an IVC filter for her right lower extremity DVT. 9) given her drop of hemoglobin yesterday requiring a blood transfusion and the fact that the CAT scan of her abdomen and pelvis suggested a possible right psoas hemorrhage, I am going to repeat the CAT scan of her abdomen pelvis to make sure she has not developed a worsening retroperitoneal hematoma while on anticoagulation. 10) although I agree with any medical maneuvers to try to normalize her sodium, consideration couldbe given to decreasing the frequency of the laboratory drawing sodium levels given her drop of hemoglobin yesterday requiring a blood transfusion. Of note , I see that tentatively the patient was scheduled to be discharged today from the hospitaltoday to a long-term care facility. However, I see that this transfer has been postponed due to the continued medical issues facing thepatient. At this time, I agree that she is not ready to be transferred to a long-term care facility. From my perspective, I would advise holding off on transfer until the physicians involved in her case feel confident that her sodium is approaching normal and/or is normal and stable. Also I would advise holding off on transfer until the physicians involved in her case have worked out the full riskand benefits as to anticoagulation. I did call the patient's son up today and gave him an update on the case. Also called the air drier Dr. Mooney to discuss the case again. Dr. Mooney is planning to continue Lasix 20 mg twice a day for now and to decrease the frequency of blood draws for her serum sodium. Dr. Mooney also has the patient on fluid restrictions. I have spent 2 hours on this case today. Over half that time was spent reviewing the chart, counseling the patient's son on the phone, coordinating care with the nursing staff as well as coordinatingcare with the nephrology service. ADDENDUM : A repeat CT of abdomen and pelvis was done today . I don't believe there is any appreciable change in the radiologic findings from the September CT. I will check back on September 19. If any further neurologic questions arise before that time, please contact my partner system validation engineer. Plan * Haven Mooney MD - 09/18/2023 10:03 AM EDT Subjective: Seen and examined at bedside. No acute events overnight. No new complain No CP, SOA, N/V, fever, chills or rash Objective: Blood pressure 123/49, pulse 74, temperature 98.1 ??F (36.7 ??C), resp. rate 18, height 1.6 m (5' 3 ), weight 48.5 kg (107 lb), SpO2 98 %. Intake/Output Summary (Last 24 hours) at 09/18/2023 1003 Last data filed at 09/18/2023 0800 Gross per 24 hour Intake 656 ml Output 1600 ml Net -944 ml 09/16 07 - 09/17 0659 In: 660 [P.O.:410] Out: 1600 [Urine:1600] Physical Exam: GEN: NAD Neuro: AAO no focal deficits seen Psychiatric: Normal mood and affect. Cooperative with exam Eyes: Nonicteric, pupils equal, no conjunctivitis ENT: OMM moist, no lesion seen Neck: No JVD discernible, trachea appears midline Cardiovascular: Regular rate, + edema Respiratory: Quiet respirations, symmetrical chest expansion Abdomen: NTTP Nondistended : No Red catheter, no palp bladder Skin: No rash or lesions Labs: Recent Labs Lab(s) Units 09/18/23 0646 09/17/23 0409 09/16/23 0220 WBC K/??L 14.9* 15.1* 15.0* HGB GM/DL 8.1* 6.9* 8.1* PLT K/CU MM 234 232 259 Recent Labs Lab(s) Units 09/18/23 0648 09/18/23 0239 09/17/23 2319 09/17/23 1912 09/17/23 0812 09/17/23 0409 09/16/23 0831 09/16/23 0221 09/15/23 0808 09/15/23 0236 09/14/23 1325 09/14/23 0249 09/13/23 0148 09/12/23 1808 NA meq/L 131* 130* 130* 130* < > 131* 131* < > 125* < > 126* 126* < > 124* < > 121* K meq/L -- -- -- -- -- 3.8 -- 4.3 -- 4.1 -- 4.1 < > 4.4 CL meq/L -- -- -- -- -- 97* -- 92* -- 91* -- 94* < > 88* CO2 meq/L -- -- -- -- -- 29 -- 29 -- 27 -- 24 < > 27 BUN mg/dL -- -- -- -- -- 20 -- 16 -- 19 -- 22 < > 30* CREATININE mg/dL -- -- -- -- -- 0.68 -- 0.69 -- 0.82 -- 0.80 < > 1.03* CALCIUM mg/dL -- -- -- -- -- 7.9* -- 8.6 -- 8.4 -- 8.0* < > 8.2* ALBUMIN g/dL -- -- -- -- -- 2.2* -- -- -- -- -- 2.3* -- 2.9* < > = values in this interval not displayed. A/P: 1- Hyponatremia- Asymptomatic - 119 at presentation at OSH. 121 at [facility].-Urine osmolarity 892, urinesodium less than 15, serum osmolarity 261. At home on HCTZ - Improving - 130 today 2- Hypertension 3- Right hip hematoma 4- Right lower extremity DVT. 5- Anemia 6- Elevated liver enzymes ?? Plan: - Fluid restriction - lasix 20 mg bid - Serial sodium monitoring. - May need 3% saline infusion if further drop in sodium below 120. Haven Mooney MD 09/18/23 2:31 PM * Lars Leos RN - 09/18/2023 9:55 AM EDT Discharge Plan Progress Note HD# 6. Per attending, EMS was cancelled for 09/17 DC to [place]. Spoke with Ana with [facility] who gave [facility] available is for 09/20@ 1300 and CC must call on 09/19 to confirm. Lars Leos RN * Ananda Montgomery, PT - 09/18/2023 9:51 AM EDT Images from the original note were not included. Inpatient Physical Therapy Treatment Patient Name: Birgit Estrada Date of : 1950 Date of Treatment: 09/18/23 Start Time 09 Stop Time 0950 Session Duration 15 minutes General Visit Type: Treatment Approved by: Nurse Santiago Patient Disposition Upon Entry: Supine in bed, Call Light/Pull Cord in reach, All needs met and within reach Patient Verified By: Name and Date of Precautions Weight-Bearing Status: No Restrictions Precautions: Fall risk Noted recent development of R foot drop, Bilat knee extension contractures, Rhabdo Isolation Precautions: Standard Subjective Subjective: Patient agreeable to physical therapy treatment. with exercises, she states tired, and right leg hurts does not want to get up. Pain Yes. right leg buring Cognition Arousal/Alertness: Appropriate response to stimuli Attention Span: Appears intact Following commands: Able to follow commands appropriately with tactile cueing Able to follow commands appropriately with verbal cueing Follows one step commands with increased time Awareness of Errors: Decreased awareness of errors Keeps eyes closed 25% of time - she states closes her eyes to channel the pain. Treatment There Ex Only today she declined any mobility training due to pain and tired: Tactile and verbal cues AROM Bilat PNF Elbow Flex/Ext 10X then scapular plane shoulder IR/ER 10X next Scaption elevation 15X/arm, Left leg AAROM Hip Abd/Add, heel slide and Fig 4 10X each with end raneg stretch, right legHip Abd/Add and AAROM Knee Flexion to pain tolerance 10X each. AM-[facility] Basic Mobility Inpatient Short Form How much difficulty does the patient currently have: Turning over in bed (including adjusting bedclothes, sheets, and blankets)? (1) Total/Unable (not able to do the activity or can only perform the activity using assistive devices or requires assistance from another person, including supervision or cueing for safety) Sitting down on and standing up from a chair with arms (e.g., wheelchair, bedside commode, etc.)? (1) Total/Unable (not able to do the activity or can only perform the activity using assistive devices or requires assistance from another person, including supervision or cueing for safety) Moving from lying on back to sitting on side of bed? (1) Total/Unable (not able to do the activity or can only perform the activity using assistive devices or requires assistance from another person,including supervision or cueing for safety) How much help from another person does the patient currently need: Moving to and from a bed to a chair (including a wheelchair)? (1) Total/Unable (Total assist/dependent) Need to walk in hospital room? (1) Total/Unable (Total assist/dependent) Climbing 3-5 steps with a railing? (1) Total/Unable (Total assist/dependent) Score Raw score=6 t-Scale score=23.55 Standard error=4.57 CMS 0-100%=100.00% MDC=4.72 A raw score of >= 16 is significantly associated with increased odds of discharge to home in addition to consideration made for the patient's cognition and social determinants of health. Balance Unable to assess Activity Tolerance Patient tolerated activity/intervention well with no complaints or adverse events. with exercises, post treatment resting comfortable in bed, closed eyes to take a nap. Assessment Right leg limited ROM due to pain complaints with Hip Abd to 25 degrese, Knee flexion 40 degrees. Problems: Decreased functional mobility, Decreased strength, Decreased activity tolerance, Impairedstanding balance, Gait impairment, Restricted ROM, Pain Rehab potential: Fair Plan Treatment Plan:??Therapeutic Exercise, Therapeutic Activity, Gait Training, Transfer Training, Balance Training, Stair Training, Strengthening, Home Exercise Program, ROM, Patient/Family/Caregiver Education, DME Recommendations, Stretching, Co-Treat with OT PT Frequency/Duration:??5x/week for 14 days ?? Recommendations Discharge recommendations:??Patient would benefit from 3 hours of intensive multidisciplinary therapy per day to maximize functional outcomes and address functional limitations to return to highest level of functioning. ?? DME recommendations:??no needs if discharging to rehab ?? Goals Supine to/from sit:??mod I with rail Sit to/from stand:??SBA with RWx Gait:??150 ft SBA with RWx Stair Negotiation:??1 stair, no rail min A Target Date:?09/27/2023 Goals Patient aware work her best each day to improve mobility ?? Education Patient??educated on safety, role of physical therapy, plan of care, transfers, bed mobility, need for assistance and risk for falls??and following, they were not??able to verbalize and demonstrate??understanding. No further questions or concerns stated. ?? Patient Disposition Upon Leaving Supine in bed HOB elevated 25 degreese, Call Light/Pull Cord in reach, All needs met and within reach, Nursing aware/notified, patient resting comfortable she wants to nap prior to lunch If this patient discharges prior to next therapy session, this note serves as the patient's discharge summary. Electronically signed by Ananda Montgomery, PT - 09/18/23 - 9:52 AM EDT * Hayder Stark, PT - 09/17/2023 1:36 PM EDT Images from the original note were not included. Inpatient Physical Therapy Treatment Patient Name: Birgit Estrada Date of : 1950 Date of Treatment: 09/17/23 Start Time 133 Stop Time 1406 Session Duration 30 minutes General Visit Type: Treatment Approved by: Nurse [id number] Patient Disposition Upon Entry: Supine in bed, Call Light/Pull Cord in reach, HOB >30 degrees, Visitor/Family present Patient Verified By: Name and Date of Assisted by: tv technician Precautions Weight-Bearing Status: No Restrictions Precautions: Fall risk Noted recent development of R foot drop, Bilat knee extension contractures, Rhabdo Isolation Precautions: Standard Subjective Subjective: Patient agreeable to physical therapy treatment. Pain Yes. 0-10 SCALE Pain location: Bilat knees and all over Did not rate Cognition Arousal/Alertness: Appropriate response to stimuli Attention Span: Appears intact Following commands: Able to follow commands appropriately with tactile cueing Able to follow commands appropriately with verbal cueing Follows one step commands with increased time Awareness of Errors: Decreased awareness of errors Keeps eyes closed 80% of time Objective Functional Mobility Bed Mobility: Rolling Left: maximal assistance, 2-person assist Rolling Right: maximal assistance, 2-person assist Supine to Sit: maximal assistance, 2-person assist, HOB elevated, to the right Sit to Supine: total assistance / dependent Bed Scooting: total assistance / dependent Transfers Sit to Stand: moderate assistance, maximal assistance, 2-person assist, rolling walker used Stand to Sit: moderate assistance, maximal assistance, 2-person assist, rolling walker used Gait Not safe to attempt due to medical condition or safety Stair Management Not assessed this date. Wheelchair Mobility Not assessed this date. AM-[facility] Basic Mobility Inpatient Short Form How much difficulty does the patient currently have: Turning over in bed (including adjusting bedclothes, sheets, and blankets)? (1) Total/Unable (not able to do the activity or can only perform the activity using assistive devices or requires assistance from another person, including supervision or cueing for safety) Sitting down on and standing up from a chair with arms (e.g., wheelchair, bedside commode, etc.)? (1) Total/Unable (not able to do the activity or can only perform the activity using assistive devices or requires assistance from another person, including supervision or cueing for safety) Moving from lying on back to sitting on side of bed? (1) Total/Unable (not able to do the activity or can only perform the activity using assistive devices or requires assistance from another person,including supervision or cueing for safety) How much help from another person does the patient currently need: Moving to and from a bed to a chair (including a wheelchair)? (1) Total/Unable (Total assist/dependent) Need to walk in hospital room? (1) Total/Unable (Total assist/dependent) Climbing 3-5 steps with a railing? (1) Total/Unable (Total assist/dependent) Score Raw score=6 t-Scale score=23.55 Standard error=4.57 CMS 0-100%=100.00% MDC=4.72 A raw score of >= 16 is significantly associated with increased odds of discharge to home in addition to consideration made for the patient's cognition and social determinants of health. Balance Static/dynamic sitting and static/dynamic standing balance grades Balance Grade Sitting Static Poor - patient requires handhold support and moderate to maximal assistance to maintain position Sitting Dynamic Poor - patient unable to accept challenge or move without loss of balance Standing Static Poor - patient requires handhold support and moderate to maximal assistance to maintain position Standing Dynamic Poor - patient unable to accept challenge or move without loss of balance Activity Tolerance Patient limited with activity/intervention due to pain, fatigue, deconditioning and weakness Treatment Performed R sidelying with totalA with cues for hand placement on railing and use of sheet for faciliation with attempts to break up extension synergy patterns/contractures. R sidelying to sitting EOB with HOB elevated incrementally and bed lowered as able. Due to pt with continual BLE and trunk extension, pt needing assist for preventing from scooting OOB while sitting. Once pt stabilized in sitting, bed able to be lowered for BLE feet placement. However, pt with still overall lacking knee flexion. Performed LAQ to BLE with AAROM/PROM and noted mild improvement with ability to flex Bilat knees for improved foot placement on ground. Pt agreeable for sit to stand transfer. With tech assist to stabilize Bilat ankles on ground + therapy assist for transfers, pt performed sit to partial stand with RWx mod/maxA x2 and tolerating static partial standing ~30sec. Pt unable toshift anteriorly and maintaining a posterior lean throughout. BLE multipodus boots applied and education/discussion with RN for application as able to tolerate Assessment Pt with BLE knee pain, extension synergy/contractures, marked debility but confusion has improved today. Pt able to tolerate again sit to stand transfer but demonstrating significant difficulties with open chain ROM. Pt may benefit from standing frame and use of proper foot wear to improve neutral ankle ROM to BLE. Will cont to assess during LOS to improve functional mobility, pain management, and activity tolerance. Plan Treatment Plan:??Therapeutic Exercise, Therapeutic Activity, Gait Training, Transfer Training, Balance Training, Stair Training, Strengthening, Home Exercise Program, ROM, Patient/Family/Caregiver Education, DME Recommendations, Stretching, Co-Treat with OT PT Frequency/Duration:??5x/week for 14 days ?? Recommendations Discharge recommendations:??Patient would benefit from 3 hours of intensive multidisciplinary therapy per day to maximize functional outcomes and address functional limitations to return to highest level of functioning. ?? DME recommendations:??no needs if discharging to rehab ?? Goals Supine to/from sit:??mod I with rail Sit to/from stand:??SBA with RWx Gait:??150 ft SBA with RWx Stair Negotiation:??1 stair, no rail min A Target Date:?09/27/2023 Goals were discussed with:?pt too confused to discuss goals, no family present? Education Patient??educated on safety, role of physical therapy, plan of care, transfers, bed mobility, need for assistance and risk for falls??and following, they were not??able to verbalize and demonstrate??understanding. No further questions or concerns stated. ?? Patient Disposition Upon Leaving Supine in bed, Call Light/Pull Cord in reach, All needs met and within reach, Nursing aware/notified, Side rails up ?? If this patient discharges prior to next therapy session, this note serves as the patient's discharge summary. Electronically signed by Hayder Stark PT - 09/17/23 - 2:09 PM EDT * Sim Cole MD - 09/17/2023 11:30 AM EDT Images from the original note were not included. [facility] INFECTIOUS DISEASE PROGRESS NOTE Birgit Estrada 1950 [id number] Date of consult: 09/13/2023 Admit date: 09/12/2023 Requesting Provider: @[email or web address]@ Evaluating physician: Sim Cole MD Reason for Consultation: Acute bacterial cystitis Chief Complaint: Above Subjective History of present illness: Patient is a 73 y.o. Yr old female who is a poor historian with a history of essential hypertension, DJD, fell around 09/05/2023, sustaining increasing right hip pain, and was evaluated at an outside hospital and shown to have severe hyponatremia which was not improving. Patient also had a chest x-ray with possible opacity, with a normal CT scan negative for malignancy. CT scan of the head was unremarkable. Patient was transferred and admitted to [facility] on 09/12/2023. Urinalysis had significant pyuria at 11-20 WBCs but minimal symptoms. Right hip had noted hematoma likely relatedto her previous fall. Chest x-ray at [facility] was unremarkable. The patient was placedon piperacillin/tazobactam and doxycycline on 09/11. Duplex ultrasound was significant for right lower leg DVT in the peroneal and soleus veins. I was consulted on 09/13/2023 for further evaluation and treatment. No reported history of ill contacts, zoonotic exposures, TB, HIV, significant travel, immunocompromised state. 09/14/23 history reviewed. Difficulty with moving her right foot. Slightly confused. No high fever. Tolerating antibiotics. 09/15/23 history reviewed. Feels better. Slightly less confused. Tolerating antibiotics. No high fever. 09/16/23 hx rev. No high fever. Keena abx. No pain. Urine and blood cx neg. 09/17/2023 history reviewed. No high fever. Slow improvement. Past Medical History: Diagnosis Date ??? Arthritis ??? Hypertension Past Surgical History: Procedure Laterality Date ??? CHOLECYSTECTOMY ??? TONSILLECTOMY ??? TUBAL LIGATION Pediatric History Patient Parents ??? Not on file Other Topics Concern ??? Not on file Social History Narrative ??? Not on file Negative for cigarettes, alcohol, or drug use family history is not on file. Reviewed and unremarkable No Known Allergies Immunization History Administered Date(s) Administered ??? COVID-19 2022- VACCINE MODERNA (SPIKEVAX) 12 YRS + (IGH662) 05/18/2023 ? ? COVID-19 VACCINE MRNA (MODERNA/BIVALENT)(DARK BLUE CAP W/DOAN)([id number] & [id number]) 03/10/2022 ??? Covid-19 Vaccine MRNA (PF) 18yr+ (Moderna)([id number]) 07/18/2020, 08/15/2020, 02/27/2021, 11/04/2021 Medication: @Scheduled Meds: ??? cefTRIAXone 2 g Intravenous Q24H IVPB Stopped at 09/16/23 1223 ??? doxycycline 100 mg Intravenous Q12H IVPB Stopped at 09/16/23 2355 ??? enoxaparin 50 mg Subcutaneous Q12H 50 mg at 09/17/23 0831 ??? famotidine 20 mg Oral BID 20 mg at 09/17/23830 ??? gabapentin 300 mg Oral BID 300 mg at 09/17/23830 ??? polyethylene glycol 3350 17 g Oral Daily 17 g at 09/17/23830 ??? senna-docusate 1 tablet Oral Every Night 1 tablet at 09/16/232255 ??? sodium chloride 1 g Oral Once Continuous Infusions: ??? sodium chloride 0.9% (NS) PRN Meds:. ??? acetaminophen ??? ALPRAZolam ??? cloNIDine HCL ??? cyclobenzaprine ??? docusate sodium ??? hydrALAZINE ??? ipratropium-albuteroL ??? melatonin ??? morphine ??? ondansetron Or ??? ondansetron PF ??? oxyCODONE ??? polyethylene glycol 3350 ??? sodium chloride 0.9% (NS) Please refer to the medical record for a full medication list Review of Systems: Constitutional-- No Fever, chills or sweats. Appetite fair, and no malaise. No fatigue. HEENT-- No new vision, hearing or throat complaints. No epistaxis or oral sores. Denies odynophagiaor dysphagia. No odynophagia or dysphagia. No headache, photophobia or neck stiffness. CV-- No chest pain, palpitation or syncope Resp-- No SOB/cough/Hemoptysis GI- No nausea, vomiting, or diarrhea. No hematochezia, melena, or hematemesis. Denies jaundice or chronic liver disease. -- No dysuria, hematuria, or flank pain. Denies hesitancy, urgency. Occasional frequency. Lymph- no swollen lymph nodes in neck/axilla or groin. Heme- No active bruising or bleeding; no Hx of DVT or PE. MS-- no swelling or pain in the bones or joints of arms/legs, except right hip as per HPI. No new back pain. Neuro-- No acute focal weakness or numbness in the arms or legs. No seizures. Except right foot with some foot drop. Skin--No rashes or lesions. Physical Exam: Vital Signs Temp: [97 ??F (36.1 ??C)-98.1 ??F (36.7 ??C)] 97.3 ??F (36.3 ??C) Pulse: [64-86] 73 Resp: [16-18] 18 BP: (94-158)/(43-66) 105/51 Blood pressure 105/51, pulse 73, temperature 97.3 ??F (36.3 ??C), resp. rate 18, height 1.6 m (5' 3 ), weight 48.5 kg (107 lb), SpO2 97 %. GENERAL: Awake and alert, in moderate distress. Appears older than stated age. Resting in bed. HEENT: Normocephalic, atraumatic. Oropharynx without thrush. Dentition in fair repair. No cervical adenopathy. No neck masses. Ears externally normal, Nose externally normal. Trachea midline. EYES: No conjunctival injection. No icterus. EOM full. LYMPHATICS: No lymphadenopathy of the neck or axillary or inguinal regions. HEART: No murmur, gallop, or pericardial friction rub. Reg rate rhythm. No JVD. LUNGS: Clear to auscultation and percussion. No respiratory distress, no use of accessory muscles. No rales or rhonchi. No wheezes. ABDOMEN: Soft, nontender, nondistended. No appreciable HSM. Bowel sounds normal. SKIN: Warm and dry without cutaneous eruptions. No nodules. Right hip hematoma noted. No surrounding crepitus or bullae. PSYCHIATRIC: Mental status with occas confusion. EXT: No cellulitic change. Normal ROM. NEURO: Oriented to name, right foot drop Results Review: I reviewed the patient's new clinical results. Recent Labs Lab(s) Units 09/17/23 0409 09/16/23 0220 09/15/23 0236 WBC K/??L 15.1* 15.0* 15.7* HGB GM/DL 6.9* 8.1* 9.4* HCT % 20.3* 23.5* 26.6* PLT K/CU MM 232 259 259 Recent Labs Lab(s) Units 09/17/23 0812 09/17/23 0409 NA meq/L 130* 131* 131* K meq/L -- 3.8 CL meq/L -- 97* CO2 meq/L -- 29 BUN mg/dL -- 20 CREATININE mg/dL -- 0.68 GLUCOSE mg/dL -- 89 CALCIUM mg/dL -- 7.9* Recent Labs Lab(s) Units 09/17/23 0409 ALKPHOS U/L 34 BILITOT mg/dL 0.9 ALT U/L 138* AST U/L 98* No results for input(s): SEDRATE in the last 168 hours. No results for input(s): CRP in the last 168 hours. No results for input(s): VANCOTROUGH , VANCORANDOM in the last 168 hours. No results for input(s): LACTATE in the last 168 hours. Estimated Creatinine Clearance: 38.4 mL/min (by C-G formula based on SCr of 0.68 mg/dL). @LABRCNTIP (cpk,ast,alt,alkaline phosphatase)@ Microbiology: Microbiology Results (last 7 days) Procedure Component Value Units Date/Time Blood Culture Antecubital, Right [[id number]] Collected: 09/12/23 1806 Order Status: Completed Specimen: Blood from Antecubital, Right Updated: 09/17/23 0101 Result No growth in 4 days Blood Culture Forearm, Left [[id number]] Collected: 09/12/23 181 Order Status: Completed Specimen: Blood from Forearm, Left Updated: 09/17/23 0101 Result No growth in 4 days Urine Culture [[id number]] Collected: 09/12/23 2210 Order Status: Completed Specimen: Urine, Clean Catch Updated: 09/15/23 0858 Result No growth Radiology: Radiology Results (last 3 days) Procedure Component Value Units Date/Time MR spine cervical without IV contrast [[id number]] Collected: 09/17/23 0816 Order Status: Completed Updated: 09/17/23 0827 Narrative: MRI CERVICAL SPINE HISTORY: Increasing weakness after fall a few days. COMPARISON:Outside study from September 06, 2023 PROCEDURE: Multiplanar MR imaging of the cervical spine was performed in multiple MR sequences. FINDINGS: Exam is Limited secondary to significant motion artifact. Limited images of the posterior fossa are unremarkable. In the region of the right sternocleidomastoid muscle is a loculated high T2 signal within the fluid fluid level measuring up to 2.6 cm. Could potentially be secondary to hematoma, correlate clinically. Alignment appears appropriate without evidence of fracture. Assessment of the cervical cord is extremely limited. C2-C3: Disc osteophyte complex abuts thecal sac anteriorly, central canal and neural foramen appear patent. C3-C4: Disc osteophyte complex abuts thecal sac, central canal remains patent, moderate right and mild left foraminal narrowing. C4-C5: Disc osteophyte complex, asymmetric to the right. There is mild narrowing of the central canal and moderate to severe narrowing of the right and moderate narrowing of the left neural foramen. C5-C6: Disc osteophyte complex, asymmetric to the right. This abuts thecal sac anteriorly. Central canal remains patent, moderate right neural foraminal narrowing. C6-C7: Disc osteophyte complex, no central canal stenosis, mild narrowing of the bilateral neural foramen. C7-T1: No significant disc disease is present. There is no canal stenosis. Impression: Exam limited by motion artifact. Multilevel spondylosis and stenosis as above. In the region of the right sternocleidomastoid muscle is a loculated high T2 signal within the fluid fluid level measuring up to 2.6 cm. Could potentially be secondary to hematoma, correlate clinically. Images reviewed, interpreted, and dictated by Bossman Ramirez DO MR Brain Without IV Contrast [[id number]] Collected: 09/17/23 0017 Order Status: Completed Updated: 09/17/23 0021 Narrative: MRI OF THE BRAIN HISTORY: Neuro deficit, acute, stroke suspected PROCEDURE: Multiplanar, multisequence MRI of the brain was performed without IV contrast. COMPARISON: CT 09/13/2023 FINDINGS: Diffusion weighted images demonstrate no evidence of acute infarct. No evidence of mass, hemorrhage or edema. Chronic small vessel ischemic white matter changes and generalized cerebral volume loss are present. The ventricles are prominent. There is no extra-axial collection or midline shift. Flow-voids are grossly preserved. Limited images of the proximal cord are unremarkable. Partial opacification of right sphenoid sinus. Small mastoid air cell effusions. Impression: No acute intracranial abnormalities. Images personally reviewed, interpreted and dictated by Sarwat Santos M.D. XR FEMUR RIGHT [[id number]] Collected: 09/16/231653 Order Status: Completed Updated: 09/16/231657 Narrative: RIGHT FEMUR SERIES HISTORY: Chronic right leg pain. COMPARISON: None. FINDINGS: A two view exam demonstrates no acute fracture or dislocation. The joint spaces appear unremarkable. No soft tissue abnormality is seen. Impression: No acute bony abnormality. LEFT FEMUR SERIES HISTORY: Chronic left leg pain. COMPARISON: None. FINDINGS: A two view exam demonstrates no acute fracture or dislocation. The joint spaces appear unremarkable. No soft tissue abnormality is seen. IMPRESSION: No acute bony abnormality. Images reviewed, interpreted, and dictated by Dr. Jairo Acosta. Transcribed by Susie House PA-C. XR FEMUR LEFT [[id number]] Collected: 09/16/23 1654 Order Status: Completed Updated: 09/16/231657 Narrative: RIGHT FEMUR SERIES HISTORY: Chronic right leg pain. COMPARISON: None. FINDINGS: A two view exam demonstrates no acute fracture or dislocation. The joint spaces appear unremarkable. No soft tissue abnormality is seen. Impression: No acute bony abnormality. LEFT FEMUR SERIES HISTORY: Chronic left leg pain. COMPARISON: None. FINDINGS: A two view exam demonstrates no acute fracture or dislocation. The joint spaces appear unremarkable. No soft tissue abnormality is seen. IMPRESSION: No acute bony abnormality. Images reviewed, interpreted, and dictated by Dr. Jairo Acosta. Transcribed by Susie House PA-C. XR chest AP portable [[id number]] Collected: 09/16/23 1103 Order Status: Completed Updated: 09/16/23 1106 Narrative: PORTABLE CHEST. 09/16/2023 7:55 AM HISTORY: Shortness of breath. COMPARISON: September 12, 2023. FINDINGS: The cardiac silhouette is normal in size. The mediastinum is unremarkable. The lungs are clear. There is no pneumothorax. Impression: No acute cardiopulmonary process. Images reviewed, interpreted, and dictated by Dr. Jairo Acosta. Transcribed by Jane Stephens PA-C. MR thoracic spine without IV contrast [[id number]] Collected: 09/15/23 1252 Order Status: Completed Updated: 09/15/23 1333 Narrative: Name: BIRGIT ESTRADA : 1950 NONINFUSED LUMBAR SPINE MRI HISTORY: Severe hip pain and leg weakness. FINDINGS: On the sagittal images, mild decreased signal is identified throughout the lumbar discs. Vertebrae are of normal height. No malalignment is seen. L1-2: No disc bulge or protrusion. L2-3: No disc bulge or protrusion. L3-4: Mild to moderate diffuse disc bulge is present. Small posterolateral disc protrusions are present. There is mild to moderate bilateral neural foraminal narrowing. Moderate hypertrophic changes are seen at the facet joints bilaterally. L4-5: Mild to moderate diffuse disc bulge is present. Small posterolateral disc protrusions are present. There is mild to moderate bilateral neural foraminal narrowing. Moderate hypertrophic changes are seen at the facet joints bilaterally. L5-S1: No significant disc bulge or protrusion. Impression: 1. Posterolateral disc protrusions L3-4 and L4-5 with bilateral facet hypertrophy. Mild to moderate bilateral neural foraminal compromise. 2. No evidence of acute osseous abnormality. NONINFUSED THORACIC SPINE MRI HISTORY: Back pain. FINDINGS: On the sagittal images, abnormal decreased signal is identified throughout the thoracic discs. Vertebrae are of normal height. No malalignment is seen. Thoracic cord demonstrates normal signal and configuration. On the axial images, there is no evidence of significant disc bulge or protrusion. Incidental note is made of moderate bilateral pleural effusions. IMPRESSION: 1. Diffuse changes of degenerative disc disease, without evidence of significant spinal or neural foraminal compromise. 2. No evidence of acute osseous abnormality. 3. Moderate bilateral pleural effusions. Images reviewed, interpreted, and dictated by Jose Barnes MD MR spine lumbar without IV contrast [[id number]] Collected: 09/15/23 1252 Order Status: Completed Updated: 09/15/23 1333 Narrative: Name: BIRGIT ESTRADA : 1950 NONINFUSED LUMBAR SPINE MRI HISTORY: Severe hip pain and leg weakness. FINDINGS: On the sagittal images, mild decreased signal is identified throughout the lumbar discs. Vertebrae are of normal height. No malalignment is seen. L1-2: No disc bulge or protrusion. L2-3: No disc bulge or protrusion. L3-4: Mild to moderate diffuse disc bulge is present. Small posterolateral disc protrusions are present. There is mild to moderate bilateral neural foraminal narrowing. Moderate hypertrophic changes are seen at the facet joints bilaterally. L4-5: Mild to moderate diffuse disc bulge is present. Small posterolateral disc protrusions are present. There is mild to moderate bilateral neural foraminal narrowing. Moderate hypertrophic changes are seen at the facet joints bilaterally. L5-S1: No significant disc bulge or protrusion. Impression: 1. Posterolateral disc protrusions L3-4 and L4-5 with bilateral facet hypertrophy. Mild to moderate bilateral neural foraminal compromise. 2. No evidence of acute osseous abnormality. NONINFUSED THORACIC SPINE MRI HISTORY: Back pain. FINDINGS: On the sagittal images, abnormal decreased signal is identified throughout the thoracic discs. Vertebrae are of normal height. No malalignment is seen. Thoracic cord demonstrates normal signal and configuration. On the axial images, there is no evidence of significant disc bulge or protrusion. Incidental note is made of moderate bilateral pleural effusions. IMPRESSION: 1. Diffuse changes of degenerative disc disease, without evidence of significant spinal or neural foraminal compromise. 2. No evidence of acute osseous abnormality. 3. Moderate bilateral pleural effusions. Images reviewed, interpreted, and dictated by Jose Barnes MD . IMPRESSION: 1. Pyuria with possible acute bacterial cystitis. Urine culture from 09/11 negative. Partially treated. 2. Right hip hematoma after fall 09/05/2023. X-ray without fracture on 09/15. Right psoas muscle with intramuscular hematoma from CT abdomen and pelvis 09/13. 3. Right sternocleidomastoid muscle loculated signal, potential hematoma seen on MRI 09/16. 4. Reported chest x-ray infiltrate resolved. Could have had atelectasis, and is at risk for pulmonary embolus given demonstration of new DVT. CT scan of the abdomen and pelvis with basilar infiltrate. 5. DVT right lower leg soleus and peroneal veins positive duplex 09/13/2023. 6. Leukocytosis, neutrophilic related to above issues. Worse. May be related to cystitis versus other. Blood cultures x 2 from 09/11 negative. 7. Hyponatremia related to above issues, medications, possible SIADH, versus other. 130. 8. Anemia, related to above issues and right hip hematoma. Continued worse. 9. Hypocalcemia 8.0. 10. Elevated transaminase with ALT 213, ongoing, AST 308, ongoing, total bilirubin 0.9, alkaline phosphatase 45. Reportedly CT scan abdomen and pelvis at outside hospital without significant pathology. May need to repeat ultrasound versus other. Likely also related to muscle injury. 11. Rhabdo, CK 2217, ongoing. Related to her recent fall and trauma to leg. 12. Encephalopathy, toxic and metabolic. MRI brain without intracranial abnormalities from 09/16. PLAN: 1. Diagnostically, continue to follow patient's physical exam, CBC, CMP, CRP. 2. Therapeutically, continue doxycycline and ceftriaxone pending further culture data. Duration to be determined but likely to be until 09/19 and reassess. Could change to po cefurox and doxy to facilitate discharge. Then follow off antibiotics. This would provide coverage for possible pneumonia or urinary tract infection. 3. Supportive care. Room air on 09/13/2023. Orthopedics, nephrology, neurology evaluating. I discussed the patient's findings and my recommendations with the patient and nursing. Thank you for asking me to see Birgit Estrada. Our group would be pleased to follow this patient over the course of their hospitalization and assist with outpatient antimicrobial therapy, as indicated. Further recommendations depend on the results of the cultures and clinical course. Increased riskfor adverse drug reactions, complications of IV access, need for surgery, readmission. I prev discussed with the patient's son. See next on Wednesday, call sooner if needed. Sim Cole MD 09/17/2023 * Ashely Rolon LCSW - 09/17/2023 11:03 AM EDTSummary: Progress Social Work Progress Note [facility] Patient may be ready on Wednesday. ameripro is scheduled for 1 pm if so. IF she is not ready Ameripro will need to be changed to Wednesday. Mauri Oliveros report number is [phone]. Fax number is [phone]. Ashely Rolon LCSW * Cornelius Mccarty MD - 09/17/2023 10:39 AM EDT Subjective Patient confused Awake No nausea or vomiting No fever Last Recorded Vitals Blood pressure 105/51, pulse 73, temperature 97.3 ??F (36.3 ??C), resp. rate 18, height 1.6 m (5' 3 ), weight 48.5 kg (107 lb), SpO2 97 %. Physical Exam Head atraumatic normocephalic Pupils round and reactive Eyes no conjunctival injection or discharge Ears no discharge Nose no bleeding or discharge Mouth dry Neck supple forage of motion Chest diminished entry bilaterally no wheezes heart S1 and S2 healed regular rate Abdomen soft audible bowel sounds Extremities bilateral extremity edema with right hip discoloration Neurological patient alert awake move extremities Psychiatric anxiety Skin right hip area discoloration Labs: Results for orders placed or performed during the hospital encounter of 09/12/23 (from the past 24 hour(s)) Sodium Status: Abnormal Collection Time: 09/16/23 12:16 PM Result Value Ref Range Sodium 126 (L) 136 - 146 meq/L Sodium Status: Abnormal Collection Time: 09/16/23 3:44 PM Result Value Ref Range Sodium 128 (L) 136 - 146 meq/L Sodium Status: Abnormal Collection Time: 09/16/23 7:56 PM Result Value Ref Range Sodium 128 (L) 136 - 146 meq/L Sodium Status: Abnormal Collection Time: 09/17/23 12:05 AM Result Value Ref Range Sodium 128 (L) 136 - 146 meq/L Sodium Status: Abnormal Collection Time: 09/17/23 4:09 AM Result Value Ref Range Sodium 131 (L) 136 - 146 meq/L CBC - Hemogram ([id number]) Status: Abnormal Collection Time: 09/17/23 4:09 AM Result Value Ref Range WBC 15.1 (H) 4.0 - 10.0 K/??L RBC 2.31 (L) 3.93 - 5.22 M/??L Hemoglobin 6.9 (L) 11.2 - 15.7 GM/DL Hematocrit 20.3 (L) 34.1 - 44.9 % MCV 88 79 - 95 fL MCH 29.9 25.6 - 32.2 pg MCHC 34.0 32.2 - 35.5 GM/DL RDW 14.6 (H) 11.7 - 14.4 % Platelets 232 140 - 375 K/CU MM MPV 10.3 9.4 - 12.3 fL Creatine Kinase (CK) Status: Abnormal Collection Time: 09/17/23 4:09 AM Result Value Ref Range Total CK 1,186 (H) 26 - 192 U/L Comprehensive metabolic panel Status: Abnormal Collection Time: 09/17/23 4:09 AM Result Value Ref Range Sodium 131 (L) 136 - 146 meq/L Potassium 3.8 3.5 - 5.1 meq/L Chloride 97 (L) 102 - 112 meq/L CO2 29 21 - 32 meq/L Calcium 7.9 (L) 8.4 - 10.1 mg/dL Glucose 89 74 - 106 mg/dL BUN 20 7 - 22 mg/dL Creatinine 0.68 0.55 - 1.02 mg/dL BUN/Creatinine 29 (H) 8 - 20 Albumin 2.2 (L) 3.4 - 5.0 g/dL Alkaline Phosphatase 34 27 - 136 U/L ALT 138 (H) 13 - 56 U/L AST 98 (H) 5 - 37 U/L Total Bilirubin 0.9 0.2 - 1.2 mg/dL Protein, Total 4.5 (L) 6.4 - 8.2 gm/dL Anion Gap 9 9 - 20 A/G Ratio 1.0 (L) 1.1 - 2.5 Globulin 2.3 1.5 - 4.5 g/dL Osmolality Calc 264.7 eGFR (mL/min/1.73m2) >60 >=60 mL/min/1.73m2 ABO/RH Confirmation/Retype Status: None Collection Time: 09/17/23 4:09 AM Result Value Ref Range RETYPE O POSITIVE Prepare RBC: 1 Units, Leukoreduced Status: None Collection Time: 09/17/23 5:22 AM Result Value Ref Range Issue Date/Time [id number] Product Identification Red Blood Cells Product Code [id number] Status Information Transfused Unit Number [id number] Blood Type 5100 Cross Match Results Compatible Type and Screen Status: None Collection Time: 09/17/23 5:30 AM Result Value Ref Range ABO/Rh O Positive Antibody Screen Negative HISTCHK HIST CHECK PERFORMED Sodium Status: Abnormal Collection Time: 09/17/23 8:12 AM Result Value Ref Range Sodium 130 (L) 136 - 146 meq/L ECHO COMPLETE (DOPPLER / COLOR) W OR WO CONTRAST TRANSTHORACIC ECHOCARDIOGRAPHY REPORT Demographics Patient Name: SEAN REILLY : 1950 Age: 73 year(s) Corporate ID Number: [id number] Gender Female 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 Patient Status: Routine IP Study Location: [facility] Quality: Good visualization Impression: ######################################## Indication: Shortness of breath R06.02 Normal sized left ventricle. Normal left ventricular wall thickness. Visually estimated ejection fraction 65% +/- 5%. Normal left ventricular systolic function. Normal left ventricular diastolic function. No hemodynamically significant valvular heart disease. ######################################## Measurements Summary: LVEDd: 3.04 cm LVESd: 1.88 cm IVSEd: 0.85 cm AO Root:3.18 cm LVPWd: 0.83 cm Contractility Score Normal Left Ventricular contractility was noted. LV regional wall motion: (0-Not visualized 1-Normal 2-Hypokinesis 3-Akinesis 4-Dyskinesis 5-Aneurysm) Left Ventricle Peak E-wave: 0.95 Peak A-wave: 1.17 m/s E/A ratio: 0.81 m/s Volume [id number] LV length: 6.37 cm ml Volume [id number] ml LVOT diameter: 1.76 cm Normal sized left ventricle. Normal left ventricular wall thickness. Visually estimated ejection fraction 65% +/- 5%. Normal left ventricular systolic function. Unable to obtain bullseye average for strain due to irregular heart rhythm. Normal left ventricular diastolic function. No left ventricular masses or thrombi. Right Ventricle Diastolic dimension: 2.13 RV systolic pressure: 25.52 mmHg cm Normal sized right ventricle. Normal TAPSE c/w normal right ventricular function Left Atrium LA dimension: 2.2 cm LA volume:33.91 ml LA/Aorta: 0.69 Normal sized left atrium. Normal left atrial volume index Intact atrial septum. No atrial mass or thrombus. Right Atrium Normal sized right atrium. Intact atrial septum. No atrial mass or thrombus. Mitral Valve Deceleration time: 219.45 msec Thickened mitral valve leaflets. Trace mitral regurgitation. No mitral stenosis. No masses or vegetations seen. Aortic Valve LVOT VTI: 26.49 cm Mildly thickend free edges of the aortic valve leaflets. No aortic regurgitation. No aortic stenosis. No masses or vegetations seen. Tricuspid Valve TR velocity: 2.37 m/s TR gradient: 22.15827 mmHg Estimated RAP: 3 mmHg RVSP: 25.52 mmHg Structurally normal tricuspid valve. Mild (1+) tricuspid regurgitation. No tricuspid stenosis. No masses or vegetations seen. Pulmonic Valve Acceleration time: 129.18 msec PASP: 25.52 mmHg Structurally normal pulmonic valve. No pulmonic regurgitation. No pulmonic stenosis. No masses or vegetations seen. Great Vessels Aorta Aortic Root: 3.18 cm LVOT Diameter: 1.76 cm Visualized aorta is normal. Normal aortic root. No evidence of dissection. Normal IVC with appropriate collapse. Pericardium / Pleura No pericardial effusion. MR spine cervical without IV contrast Narrative: MRI CERVICAL SPINE HISTORY: Increasing weakness after fall a few days. COMPARISON:Outside study from September 06, 2023 PROCEDURE: Multiplanar MR imaging of the cervical spine was performed in multiple MR sequences. FINDINGS: Exam is Limited secondary to significant motion artifact. Limited images of the posterior fossa are unremarkable. In the region of the right sternocleidomastoid muscle is a loculated high T2 signal within the fluid fluid level measuring up to 2.6 cm. Could potentially be secondary to hematoma, correlate clinically. Alignment appears appropriate without evidence of fracture. Assessment of the cervical cord is extremely limited. C2-C3: Disc osteophyte complex abuts thecal sac anteriorly, central canal and neural foramen appear patent. C3-C4: Disc osteophyte complex abuts thecal sac, central canal remains patent, moderate right and mild left foraminal narrowing. C4-C5: Disc osteophyte complex, asymmetric to the right. There is mild narrowing of the central canal and moderate to severe narrowing of the right and moderate narrowing of the left neural foramen. C5-C6: Disc osteophyte complex, asymmetric to the right. This abuts thecal sac anteriorly. Central canal remains patent, moderate right neural foraminal narrowing. C6-C7: Disc osteophyte complex, no central canal stenosis, mild narrowing of the bilateral neural foramen. C7-T1: No significant disc disease is present. There is no canal stenosis. Impression: Exam limited by motion artifact. Multilevel spondylosis and stenosis as above. In the region of the right sternocleidomastoid muscle is a loculated high T2 signal within the fluid fluid level measuring up to 2.6 cm. Could potentially be secondary to hematoma, correlate clinically. Images reviewed, interpreted, and dictated by Bossman Ramirez DO MR Brain Without IV Contrast Narrative: MRI OF THE BRAIN HISTORY: Neuro deficit, acute, stroke suspected PROCEDURE: Multiplanar, multisequence MRI of the brain was performed without IV contrast. COMPARISON: CT 09/13/2023 FINDINGS: Diffusion weighted images demonstrate no evidence of acute infarct. No evidence of mass, hemorrhage or edema. Chronic small vessel ischemic white matter changes and generalized cerebral volume loss are present. The ventricles are prominent. There is no extra-axial collection or midline shift. Flow-voids are grossly preserved. Limited images of the proximal cord are unremarkable. Partial opacification of right sphenoid sinus. Small mastoid air cell effusions. Impression: No acute intracranial abnormalities. Images personally reviewed, interpreted and dictated by Sarwat Santos M.D. Assessment #1 hyponatremia Patient mid to the hospital from nephrology evaluation will check electrolytes start IV fluid CT of chest done with no apparent malignancy ?? 2 pneumonia patient already on IV Zosyn doxycycline breathing treatment oxygen cultures ordered ?? #3 dehydration patient started on IV fluid ?? #4 anxiety restart Xanax as needed ?? #5 hypertension start hydralazine as needed ?? #6 GI prophylaxis Pepcid ?? #7 right hip hematoma will consult Ortho start pain control ? #8 DVT prophylaxis 09/17/2023 Plan Altered mental status/acute encephalopathy Consult neurology Improving Lower extremity deep vein thrombosis Blood transfusion today Patient with pleural effusion No aggressive management Sodium level improving Sodium improving CAT scan palliative care Patient will need placement when medically stable Discharge Planning: Patient medically stable to be discharge Patient will be discharged in a.m. to nursing home facility case management * Haven Mooney MD - 09/17/2023 9:51 AM EDT Subjective: Seen and examined at bedside. No acute events overnight. No new complain No CP, SOA, N/V, fever, chills or rash Objective: Blood pressure 110/46, pulse 78, temperature 97 ??F (36.1 ??C), resp. rate 16, height 1.6 m (5' 3 ), weight 48.5 kg (107 lb), SpO2 99 %. Intake/Output Summary (Last 24 hours) at 09/17/2023 0951 Last data filed at 09/17/2023 0800 Gross per 24 hour Intake 340 ml Output -- Net 340 ml 09/15 0700 - 09/16 0659 In: 220 [P.O.:220] Out: - Physical Exam: GEN: NAD Neuro: AAO no focal deficits seen Psychiatric: Normal mood and affect. Cooperative with exam Eyes: Nonicteric, pupils equal, no conjunctivitis ENT: OMM moist, no lesion seen Neck: No JVD discernible, trachea appears midline Cardiovascular: Regular rate, + edema Respiratory: Quiet respirations, symmetrical chest expansion Abdomen: NTTP Nondistended : No Red catheter, no palp bladder Skin: No rash or lesions Labs: Recent Labs Lab(s) Units 09/17/23 0409 09/16/23 0220 09/15/23 0236 WBC K/??L 15.1* 15.0* 15.7* HGB GM/DL 6.9* 8.1* 9.4* PLT K/CU MM 232 259 259 Recent Labs Lab(s) Units 09/17/23 0812 09/17/23 0409 09/17/23 0005 09/16/23 1956 09/16/23 0831 09/16/23 0221 09/15/23 0808 09/15/23 0236 09/14/23 1325 09/14/23 0249 09/13/23 0148 09/12/23 1808 NA meq/L 130* 131* 131* 128* 128* < > 125* < > 126* 126* < > 124* < > 121* K meq/L -- 3.8 -- -- -- 4.3 -- 4.1 -- 4.1 < > 4.4 CL meq/L -- 97* -- -- -- 92* -- 91* -- 94* < > 88* CO2 meq/L -- 29 -- -- -- 29 -- 27 -- 24 < > 27 BUN mg/dL -- 20 -- -- -- 16 -- 19 -- 22 < > 30* CREATININE mg/dL -- 0.68 -- -- -- 0.69 -- 0.82 -- 0.80 < > 1.03* CALCIUM mg/dL -- 7.9* -- -- -- 8.6 -- 8.4 -- 8.0* < > 8.2* ALBUMIN g/dL -- 2.2* -- -- -- -- -- -- -- 2.3* -- 2.9* < > = values in this interval not displayed. A/P: 1- Hyponatremia- Asymptomatic - 119 at presentation at [facility]. 121 at [facility].-Urine osmolarity 892, urinesodium less than 15, serum osmolarity 261. At home on HCTZ - Improving - 130 today 2- Hypertension 3- Right hip hematoma 4- Right lower extremity DVT. 5- Anemia 6- Elevated liver enzymes ?? Plan: - Fluid restriction - lasix 20 mg bid - she never received salt tablet yesterday - sodium improved with albumin infusion. Will repeat dose of albumin and give midodrine 2.5 mg to improve BP. - Serial sodium monitoring. - May need 3% saline infusion if further drop in sodium below 120. Haven Mooney MD 09/17/23 2:31 PM * Teodoro Allan PA-C - 09/17/2023 9:03 AM EDT [facility] NEUROSURGERY PROGRESS NOTE Subjective Reports pain to bilateral thighs. Pain being controlled with medication. Patient denies back pain. Patient reports weakness to lower extremities is unchanged. Feels her legs are heavy and being weighed down. Physical Exam Blood pressure 95/43, pulse 67, temperature 97.2 ??F (36.2 ??C), temperature source Oral, resp. rate 16, height 1.6 m (5' 3 ), weight 48.5 kg (107 lb), SpO2 96 %. AAOx3. NAD, lying in bed 5/5 strength to upper extremities. 3-4/5 to lower extremities, though limited by pain. Labs Results for orders placed or performed during the hospital encounter of 09/12/23 (from the past 24 hour(s)) Sodium Status: Abnormal Collection Time: 09/16/23 12:16 PM Result Value Ref Range Sodium 126 (L) 136 - 146 meq/L Sodium Status: Abnormal Collection Time: 09/16/23 3:44 PM Result Value Ref Range Sodium 128 (L) 136 - 146 meq/L Sodium Status: Abnormal Collection Time: 09/16/23 7:56 PM Result Value Ref Range Sodium 128 (L) 136 - 146 meq/L Sodium Status: Abnormal Collection Time: 09/17/23 12:05 AM Result Value Ref Range Sodium 128 (L) 136 - 146 meq/L Sodium Status: Abnormal Collection Time: 09/17/23 4:09 AM Result Value Ref Range Sodium 131 (L) 136 - 146 meq/L CBC - Hemogram (SJ-BKR) Status: Abnormal Collection Time: 09/17/23 4:09 AM Result Value Ref Range WBC 15.1 (H) 4.0 - 10.0 K/??L RBC 2.31 (L) 3.93 - 5.22 M/??L Hemoglobin 6.9 (L) 11.2 - 15.7 GM/DL Hematocrit 20.3 (L) 34.1 - 44.9 % MCV 88 79 - 95 fL MCH 29.9 25.6 - 32.2 pg MCHC 34.0 32.2 - 35.5 GM/DL RDW 14.6 (H) 11.7 - 14.4 % Platelets 232 140 - 375 K/CU MM MPV 10.3 9.4 - 12.3 fL Creatine Kinase (CK) Status: Abnormal Collection Time: 09/17/23 4:09 AM Result Value Ref Range Total CK 1,186 (H) 26 - 192 U/L Comprehensive metabolic panel Status: Abnormal Collection Time: 09/17/23 4:09 AM Result Value Ref Range Sodium 131 (L) 136 - 146 meq/L Potassium 3.8 3.5 - 5.1 meq/L Chloride 97 (L) 102 - 112 meq/L CO2 29 21 - 32 meq/L Calcium 7.9 (L) 8.4 - 10.1 mg/dL Glucose 89 74 - 106 mg/dL BUN 20 7 - 22 mg/dL Creatinine 0.68 0.55 - 1.02 mg/dL BUN/Creatinine 29 (H) 8 - 20 Albumin 2.2 (L) 3.4 - 5.0 g/dL Alkaline Phosphatase 34 27 - 136 U/L ALT 138 (H) 13 - 56 U/L AST 98 (H) 5 - 37 U/L Total Bilirubin 0.9 0.2 - 1.2 mg/dL Protein, Total 4.5 (L) 6.4 - 8.2 gm/dL Anion Gap 9 9 - 20 A/G Ratio 1.0 (L) 1.1 - 2.5 Globulin 2.3 1.5 - 4.5 g/dL Osmolality Calc 264.7 eGFR (mL/min/1.73m2) >60 >=60 mL/min/1.73m2 ABO/RH Confirmation/Retype Status: None Collection Time: 09/17/23 4:09 AM Result Value Ref Range RETYPE O POSITIVE Prepare RBC: 1 Units, Leukoreduced Status: None (Preliminary result) Collection Time: 09/17/23 5:22 AM Result Value Ref Range Product Identification Red Blood Cells Product Code [id number] Status Information Ready for issue Unit Number [id number] Blood Type 5100 Cross Match Results Compatible Type and Screen Status: None Collection Time: 09/17/23 5:30 AM Result Value Ref Range ABO/Rh O Positive Antibody Screen Negative HISTCHK HIST CHECK PERFORMED MR spine cervical without IV contrast Narrative: MRI CERVICAL SPINE HISTORY: Increasing weakness after fall a few days. COMPARISON:Outside study from September 06, 2023 PROCEDURE: Multiplanar MR imaging of the cervical spine was performed in multiple MR sequences. FINDINGS: Exam is Limited secondary to significant motion artifact. Limited images of the posterior fossa are unremarkable. In the region of the right sternocleidomastoid muscle is a loculated high T2 signal within the fluid fluid level measuring up to 2.6 cm. Could potentially be secondary to hematoma, correlate clinically. Alignment appears appropriate without evidence of fracture. Assessment of the cervical cord is extremely limited. C2-C3: Disc osteophyte complex abuts thecal sac anteriorly, central canal and neural foramen appear patent. C3-C4: Disc osteophyte complex abuts thecal sac, central canal remains patent, moderate right and mild left foraminal narrowing. C4-C5: Disc osteophyte complex, asymmetric to the right. There is mild narrowing of the central canal and moderate to severe narrowing of the right and moderate narrowing of the left neural foramen. C5-C6: Disc osteophyte complex, asymmetric to the right. This abuts thecal sac anteriorly. Central canal remains patent, moderate right neural foraminal narrowing. C6-C7: Disc osteophyte complex, no central canal stenosis, mild narrowing of the bilateral neural foramen. C7-T1: No significant disc disease is present. There is no canal stenosis. Impression: Exam limited by motion artifact. Multilevel spondylosis and stenosis as above. In the region of the right sternocleidomastoid muscle is a loculated high T2 signal within the fluid fluid level measuring up to 2.6 cm. Could potentially be secondary to hematoma, correlate clinically. Images reviewed, interpreted, and dictated by Bossman Ramirez DO MR Brain Without IV Contrast Narrative: MRI OF THE BRAIN HISTORY: Neuro deficit, acute, stroke suspected PROCEDURE: Multiplanar, multisequence MRI of the brain was performed without IV contrast. COMPARISON: CT 09/13/2023 FINDINGS: Diffusion weighted images demonstrate no evidence of acute infarct. No evidence of mass, hemorrhage or edema. Chronic small vessel ischemic white matter changes and generalized cerebral volume loss are present. The ventricles are prominent. There is no extra-axial collection or midline shift. Flow-voids are grossly preserved. Limited images of the proximal cord are unremarkable. Partial opacification of right sphenoid sinus. Small mastoid air cell effusions. Impression: No acute intracranial abnormalities. Images personally reviewed, interpreted and dictated by Sarwat Santos M.D. Assessment/Plan Cervical MRI reviewed with Dr. Godinez. Mild narrowing noted of central canal, though does not correlate with symptoms. Neurosurgery will be signing off. Cosigned by Bossman Godinez MD at 09/18/2023 10:51 AM EDT Associated attestation - Bossman Godinez MD - 09/18/2023 9:51 AM CDT I saw this patient. reviewed the notes, assessments, and/or procedures performed by Julito Nelson with her/his documentation of Birgit Estrada. I saw Mrs. Estrada and examined her. She does continue to have weakness in both legs that is significantly pain limited. She reports most of this pain is in her hips, though other times reports it is diffuse. Her MRI T-spine and L-spine are largely unremarkable with a widely patent spinal canal. Shedoes have some central canal stenosis on her MRI C-spine, but I don't appreciate significant spinalcord compression. She is also asymptomatic in both arms. Her MRI brain also does not reveal an etiology for her leg symptoms. No surgical intervention indicated from my perspective. * KACI Guerra/Pb - 09/17/2023 8:40 AM EDT Images from the original note were not included. Inpatient Occupational Therapy Attempt to Treat Patient Name: Birgit Estrada Birthday: 1950 Date of Attempt: 09/17/2023 Pt on hold at this time. Pt getting blood transfusion at bedside. OT will follow up as schedule permits. Electronically signed by KACI Saha/Pb - 09/17/2023 - 11:56 AM EDT * Hayder Stark, PT - 09/17/2023 8:40 AM EDT Images from the original note were not included. Inpatient Physical Therapy Attempt to Treat Patient Name: Birgit Estrada Birthday: 1950 Date of Attempt: 09/17/2023 RN request to hold due to increased confusion and requiring blood transfusion at this time. Will check back as time permits/appropriate. Electronically signed by Hayder Stark PT - 09/17/2023 - 12:02 PM EDT * Ray Draper PA-C - 09/17/2023 7:56 AM EDT Images from the original note were not included. ORTHOPAEDIC SURGERY PROGRESS NOTE Subjective Patient states pain has not worsened. Patient shares no data today about injury approximately 10 years ago that had massive bruising she has with this incident. Physical Exam Blood pressure 95/43, pulse 67, temperature 97.2 ??F (36.2 ??C), temperature source Oral, resp. rate 16, height 1.6 m (5' 3 ), weight 48.5 kg (107 lb), SpO2 94 %. Ecchymotic lesion is far more diffuse today. It is notable on the entirety of the dependent area from hip to knee. Pitting edema noted in the dependent area. Neurologic and vascular exam distal to the knee normal. Labs Results for orders placed or performed during the hospital encounter of 09/12/23 (from the past 24 hour(s)) Sodium Status: Abnormal Collection Time: 09/16/23 8:31 AM Result Value Ref Range Sodium 126 (L) 136 - 146 meq/L Sodium Status: Abnormal Collection Time: 09/16/23 12:16 PM Result Value Ref Range Sodium 126 (L) 136 - 146 meq/L Sodium Status: Abnormal Collection Time: 09/16/23 3:44 PM Result Value Ref Range Sodium 128 (L) 136 - 146 meq/L Sodium Status: Abnormal Collection Time: 09/16/23 7:56 PM Result Value Ref Range Sodium 128 (L) 136 - 146 meq/L Sodium Status: Abnormal Collection Time: 09/17/23 12:05 AM Result Value Ref Range Sodium 128 (L) 136 - 146 meq/L Sodium Status: Abnormal Collection Time: 09/17/23 4:09 AM Result Value Ref Range Sodium 131 (L) 136 - 146 meq/L CBC - Hemogram (SJ-BKR) Status: Abnormal Collection Time: 09/17/23 4:09 AM Result Value Ref Range WBC 15.1 (H) 4.0 - 10.0 K/??L RBC 2.31 (L) 3.93 - 5.22 M/??L Hemoglobin 6.9 (L) 11.2 - 15.7 GM/DL Hematocrit 20.3 (L) 34.1 - 44.9 % MCV 88 79 - 95 fL MCH 29.9 25.6 - 32.2 pg MCHC 34.0 32.2 - 35.5 GM/DL RDW 14.6 (H) 11.7 - 14.4 % Platelets 232 140 - 375 K/CU MM MPV 10.3 9.4 - 12.3 fL Creatine Kinase (CK) Status: Abnormal Collection Time: 09/17/23 4:09 AM Result Value Ref Range Total CK 1,186 (H) 26 - 192 U/L Comprehensive metabolic panel Status: Abnormal Collection Time: 09/17/23 4:09 AM Result Value Ref Range Sodium 131 (L) 136 - 146 meq/L Potassium 3.8 3.5 - 5.1 meq/L Chloride 97 (L) 102 - 112 meq/L CO2 29 21 - 32 meq/L Calcium 7.9 (L) 8.4 - 10.1 mg/dL Glucose 89 74 - 106 mg/dL BUN 20 7 - 22 mg/dL Creatinine 0.68 0.55 - 1.02 mg/dL BUN/Creatinine 29 (H) 8 - 20 Albumin 2.2 (L) 3.4 - 5.0 g/dL Alkaline Phosphatase 34 27 - 136 U/L ALT 138 (H) 13 - 56 U/L AST 98 (H) 5 - 37 U/L Total Bilirubin 0.9 0.2 - 1.2 mg/dL Protein, Total 4.5 (L) 6.4 - 8.2 gm/dL Anion Gap 9 9 - 20 A/G Ratio 1.0 (L) 1.1 - 2.5 Globulin 2.3 1.5 - 4.5 g/dL Osmolality Calc 264.7 eGFR (mL/min/1.73m2) >60 >=60 mL/min/1.73m2 ABO/RH Confirmation/Retype Status: None Collection Time: 09/17/23 4:09 AM Result Value Ref Range RETYPE O POSITIVE Prepare RBC: 1 Units, Leukoreduced Status: None (Preliminary result) Collection Time: 09/17/23 5:22 AM Result Value Ref Range Product Identification Red Blood Cells Product Code [id number] Status Information Ready for issue Unit Number [id number] Blood Type 5100 Cross Match Results Compatible Type and Screen Status: None Collection Time: 09/17/23 5:30 AM Result Value Ref Range ABO/Rh O Positive Antibody Screen Negative HISTCHK HIST CHECK PERFORMED MR Brain Without IV Contrast Narrative: MRI OF THE BRAIN HISTORY: Neuro deficit, acute, stroke suspected PROCEDURE: Multiplanar, multisequence MRI of the brain was performed without IV contrast. COMPARISON: CT 09/13/2023 FINDINGS: Diffusion weighted images demonstrate no evidence of acute infarct. No evidence of mass, hemorrhage or edema. Chronic small vessel ischemic white matter changes and generalized cerebral volume loss are present. The ventricles are prominent. There is no extra-axial collection or midline shift. Flow-voids are grossly preserved. Limited images of the proximal cord are unremarkable. Partial opacification of right sphenoid sinus. Small mastoid air cell effusions. Impression: No acute intracranial abnormalities. Images personally reviewed, interpreted and dictated by Sarwat Santos M.D. Assessment Right lower extremity hematoma. Radiographs negative for fracture. Nonsurgical pathology. Ongoing management from ID for pyuria. DVT right lower extremity, on Lovenox. Rhabdomyolysis Plan No restrictions for activity from orthopedic perspective. Ongoing comorbidities being managed by. Evaluated by ID, hospitalist, nephrology. Orthopedics will follow remotely Cosigned by Crescencio Perkins MD at 09/17/2023 9:47 AM EDT * Chaplain Rosita - 09/16/2023 4:07 PM EDT Spiritual Care Progress Note Support: Berna Estrada (son) [phone]. Patient is to Berna. She has 1 adult living son also named Berna and a [id number] Autumn. Decision Maker: No advance directive on file. Spiritual Values: Patient is Sabianism and values prayer. Other Values: Patient's family means a lot to her as well. Recent Life Events: Patient reports that she had a fall around September 04 at home and hit her right hip. Concerns: Patient remains somewhat confused at this time. Comments: Plan is for transfer to facility but is not medically ready for discharge. Support and spiritual care provided. Chaplain Alyse 09/16/2023 4:08 PM * Sim Cole MD - 09/16/2023 1:56 PM EDT Images from the original note were not included. [facility] INFECTIOUS DISEASE PROGRESS NOTE Birgit Estrada 1950 [id number] Date of consult: 09/13/2023 Admit date: 09/12/2023 Requesting Provider: @[email or web address]@ Evaluating physician: Sim Cole MD Reason for Consultation: Acute bacterial cystitis Chief Complaint: Above Subjective History of present illness: Patient is a 73 y.o. Yr old female who is a poor historian with a history of essential hypertension, DJD, fell around 09/05/2023, sustaining increasing right hip pain, and was evaluated at an outside hospital and shown to have severe hyponatremia which was not improving. Patient also had a chest x-ray with possible opacity, with a normal CT scan negative for malignancy. CT scan of the head was unremarkable. Patient was transferred and admitted to [facility] on 09/12/2023. Urinalysis had significant pyuria at 11-20 WBCs but minimal symptoms. Right hip had noted hematoma likely relatedto her previous fall. Chest x-ray at [facility] was unremarkable. The patient was placedon piperacillin/tazobactam and doxycycline on 09/11. Duplex ultrasound was significant for right lower leg DVT in the peroneal and soleus veins. I was consulted on 09/13/2023 for further evaluation and treatment. No reported history of ill contacts, zoonotic exposures, TB, HIV, significant travel, immunocompromised state. 09/14/23 history reviewed. Difficulty with moving her right foot. Slightly confused. No high fever. Tolerating antibiotics. 09/15/23 history reviewed. Feels better. Slightly less confused. Tolerating antibiotics. No high fever. 09/16/23 hx rev. No high fever. Keena abx. No pain. Urine and blood cx neg. Past Medical History: Diagnosis Date ??? Arthritis ??? Hypertension Past Surgical History: Procedure Laterality Date ??? CHOLECYSTECTOMY ??? TONSILLECTOMY ??? TUBAL LIGATION Pediatric History Patient Parents ??? Not on file Other Topics Concern ??? Not on file Social History Narrative ??? Not on file Negative for cigarettes, alcohol, or drug use family history is not on file. Reviewed and unremarkable No Known Allergies Immunization History Administered Date(s) Administered ??? COVID-19 2022- VACCINE MODERNA (SPIKEVAX) 12 YRS + ([id number]) 05/18/2023 ? ? COVID-19 VACCINE MRNA (MODERNA/BIVALENT)(DARK BLUE CAP W/DAON)([id number] & [id number]) 03/10/2022 ??? Covid-19 Vaccine MRNA (PF) 18yr+ (Moderna)([id number]) 07/18/2020, 08/15/2020, 02/27/2021, 11/04/2021 Medication: @Scheduled Meds: ??? cefTRIAXone 2 g Intravenous Q24H IVPB Stopped at 09/16/23 1223 ??? doxycycline 100 mg Intravenous Q12H IVPB Stopped at 09/16/23 1029 ??? enoxaparin 50 mg Subcutaneous Q12H 50 mg at 09/16/23 09 ??? famotidine 20 mg Oral BID 20 mg at 09/16/23 0929 ??? furosemide 20 mg Intravenous Once ??? gabapentin 300 mg Oral BID 300 mg at 09/16/23 0929 ??? polyethylene glycol 3350 17 g Oral Daily 17 g at 09/16/23 0928 ??? senna-docusate 1 tablet Oral Every Night 1 tablet at 09/15/23 2201 ??? sodium chloride 1 g Oral Once Continuous Infusions: PRN Meds:. ??? acetaminophen ??? ALPRAZolam ??? cloNIDine HCL ??? cyclobenzaprine ??? docusate sodium ??? hydrALAZINE ??? ipratropium-albuteroL ??? melatonin ??? morphine ??? ondansetron Or ??? ondansetron PF ??? oxyCODONE ??? polyethylene glycol 3350 ??? sodium chloride 0.9% (NS) Please refer to the medical record for a full medication list Review of Systems: Constitutional-- No Fever, chills or sweats. Appetite fair, and no malaise. No fatigue. HEENT-- No new vision, hearing or throat complaints. No epistaxis or oral sores. Denies odynophagiaor dysphagia. No odynophagia or dysphagia. No headache, photophobia or neck stiffness. CV-- No chest pain, palpitation or syncope Resp-- No SOB/cough/Hemoptysis GI- No nausea, vomiting, or diarrhea. No hematochezia, melena, or hematemesis. Denies jaundice or chronic liver disease. -- No dysuria, hematuria, or flank pain. Denies hesitancy, urgency. Occasional frequency. Lymph- no swollen lymph nodes in neck/axilla or groin. Heme- No active bruising or bleeding; no Hx of DVT or PE. MS-- no swelling or pain in the bones or joints of arms/legs, except right hip as per HPI. No new back pain. Neuro-- No acute focal weakness or numbness in the arms or legs. No seizures. Except right foot with some foot drop. Skin--No rashes or lesions, no nodules. Physical Exam: Vital Signs Temp: [97.3 ??F (36.3 ??C)-98.6 ??F (37 ??C)] 97.3 ??F (36.3 ??C) Pulse: [77-86] 86 Resp: [16-18] 16 BP: (112-157)/(48-72) 138/54 Blood pressure 138/54, pulse 86, temperature 97.3 ??F (36.3 ??C), temperature source Oral, resp. rate 16, height 1.6 m (5' 3 ), weight 48.5 kg (107 lb), SpO2 98 %. GENERAL: Awake and alert, in moderate distress. Appears older than stated age. Resting in bed. Disheveled. HEENT: Normocephalic, atraumatic. Oropharynx without thrush. Dentition in fair repair. No cervical adenopathy. No neck masses. Ears externally normal, Nose externally normal. Trachea midline. EYES: No conjunctival injection. No icterus. EOM full. LYMPHATICS: No lymphadenopathy of the neck or axillary or inguinal regions. HEART: No murmur, gallop, or pericardial friction rub. Reg rate rhythm. LUNGS: Clear to auscultation and percussion. No respiratory distress, no use of accessory muscles. No rales or rhonchi. No wheezes. ABDOMEN: Soft, nontender, nondistended. No appreciable HSM. Bowel sounds normal. SKIN: Warm and dry without cutaneous eruptions. No nodules. Right hip hematoma noted. No surrounding crepitus or bullae. PSYCHIATRIC: Mental status with occas confusion. EXT: No cellulitic change. Normal ROM. NEURO: Oriented to name, right foot drop Results Review: I reviewed the patient's new clinical results. Recent Labs Lab(s) Units 09/16/23 0220 09/15/23 0236 09/14/23 0248 WBC K/??L 15.0* 15.7* 13.4* HGB GM/DL 8.1* 9.4* 7.9* HCT % 23.5* 26.6* 22.4* PLT K/CU MM 259 259 180 Recent Labs Lab(s) Units 09/16/23 1216 09/16/23 0831 09/16/23 0221 NA meq/L 126* < > 125* K meq/L -- -- 4.3 CL meq/L -- -- 92* CO2 meq/L -- -- 29 BUN mg/dL -- -- 16 CREATININE mg/dL -- -- 0.69 GLUCOSE mg/dL -- -- 106 CALCIUM mg/dL -- -- 8.6 < > = values in this interval not displayed. Recent Labs Lab(s) Units 09/14/23 0249 ALKPHOS U/L 36 BILITOT mg/dL 0.9 ALT U/L 213* AST U/L 308* No results for input(s): SEDRATE in the last 168 hours. No results for input(s): CRP in the last 168 hours. No results for input(s): VANCOTROUGH , VANCORANDOM in the last 168 hours. No results for input(s): LACTATE in the last 168 hours. Estimated Creatinine Clearance: 38.4 mL/min (by C-G formula based on SCr of 0.69 mg/dL). @LABRCNTIP (cpk,ast,alt,alkaline phosphatase)@ Microbiology: Microbiology Results (last 7 days) Procedure Component Value Units Date/Time Blood Culture Antecubital, Right [[id number]] Collected: 09/12/23 1806 Order Status: Completed Specimen: Blood from Antecubital, Right Updated: 09/16/23 0101 Result No growth in 3 days Blood Culture Forearm, Left [[id number]] Collected: 09/12/23 1814 Order Status: Completed Specimen: Blood from Forearm, Left Updated: 09/16/23 010 Result No growth in 3 days Urine Culture [[id number]] Collected: 09/12/23 2210 Order Status: Completed Specimen: Urine, Clean Catch Updated: 09/15/23 0858 Result No growth Radiology: Radiology Results (last 3 days) Procedure Component Value Units Date/Time XR chest AP portable [[id number]] Collected: 09/16/23 1103 Order Status: Completed Updated: 09/16/23 1106 Narrative: PORTABLE CHEST. 09/16/2023 7:55 AM HISTORY: Shortness of breath. COMPARISON: September 12, 2023. FINDINGS: The cardiac silhouette is normal in size. The mediastinum is unremarkable. The lungs are clear. There is no pneumothorax. Impression: No acute cardiopulmonary process. Images reviewed, interpreted, and dictated by Dr. Jairo Acosta. Transcribed by Jane Stephens PA-C. MR thoracic spine without IV contrast [[id number]] Collected: 09/15/23 1252 Order Status: Completed Updated: 09/15/23 1333 Narrative: Name: BIRGIT ESTRADA : 1950 NONINFUSED LUMBAR SPINE MRI HISTORY: Severe hip pain and leg weakness. FINDINGS: On the sagittal images, mild decreased signal is identified throughout the lumbar discs. Vertebrae are of normal height. No malalignment is seen. L1-2: No disc bulge or protrusion. L2-3: No disc bulge or protrusion. L3-4: Mild to moderate diffuse disc bulge is present. Small posterolateral disc protrusions are present. There is mild to moderate bilateral neural foraminal narrowing. Moderate hypertrophic changes are seen at the facet joints bilaterally. L4-5: Mild to moderate diffuse disc bulge is present. Small posterolateral disc protrusions are present. There is mild to moderate bilateral neural foraminal narrowing. Moderate hypertrophic changes are seen at the facet joints bilaterally. L5-S1: No significant disc bulge or protrusion. Impression: 1. Posterolateral disc protrusions L3-4 and L4-5 with bilateral facet hypertrophy. Mild to moderate bilateral neural foraminal compromise. 2. No evidence of acute osseous abnormality. NONINFUSED THORACIC SPINE MRI HISTORY: Back pain. FINDINGS: On the sagittal images, abnormal decreased signal is identified throughout the thoracic discs. Vertebrae are of normal height. No malalignment is seen. Thoracic cord demonstrates normal signal and configuration. On the axial images, there is no evidence of significant disc bulge or protrusion. Incidental note is made of moderate bilateral pleural effusions. IMPRESSION: 1. Diffuse changes of degenerative disc disease, without evidence of significant spinal or neural foraminal compromise. 2. No evidence of acute osseous abnormality. 3. Moderate bilateral pleural effusions. Images reviewed, interpreted, and dictated by Jose Barnes MD MR spine lumbar without IV contrast [[id number]] Collected: 09/15/23 1252 Order Status: Completed Updated: 09/15/23 1333 Narrative: Name: BIRGIT ESTRADA : 1950 NONINFUSED LUMBAR SPINE MRI HISTORY: Severe hip pain and leg weakness. FINDINGS: On the sagittal images, mild decreased signal is identified throughout the lumbar discs. Vertebrae are of normal height. No malalignment is seen. L1-2: No disc bulge or protrusion. L2-3: No disc bulge or protrusion. L3-4: Mild to moderate diffuse disc bulge is present. Small posterolateral disc protrusions are present. There is mild to moderate bilateral neural foraminal narrowing. Moderate hypertrophic changes are seen at the facet joints bilaterally. L4-5: Mild to moderate diffuse disc bulge is present. Small posterolateral disc protrusions are present. There is mild to moderate bilateral neural foraminal narrowing. Moderate hypertrophic changes are seen at the facet joints bilaterally. L5-S1: No significant disc bulge or protrusion. Impression: 1. Posterolateral disc protrusions L3-4 and L4-5 with bilateral facet hypertrophy. Mild to moderate bilateral neural foraminal compromise. 2. No evidence of acute osseous abnormality. NONINFUSED THORACIC SPINE MRI HISTORY: Back pain. FINDINGS: On the sagittal images, abnormal decreased signal is identified throughout the thoracic discs. Vertebrae are of normal height. No malalignment is seen. Thoracic cord demonstrates normal signal and configuration. On the axial images, there is no evidence of significant disc bulge or protrusion. Incidental note is made of moderate bilateral pleural effusions. IMPRESSION: 1. Diffuse changes of degenerative disc disease, without evidence of significant spinal or neural foraminal compromise. 2. No evidence of acute osseous abnormality. 3. Moderate bilateral pleural effusions. Images reviewed, interpreted, and dictated by Jose Barnes MD CT ABDOMEN/PELVIS WITHOUT IV CONTRAST Standard Protocol [[id number]] Collected: 09/14/23 1051 Order Status: Completed Updated: 09/14/23 1129 Narrative: CT SCAN OF THE ABDOMEN AND PELVIS WITHOUT CONTRAST 09/14/2023 9:24 AM HISTORY: Epigastric pain COMPARISON: None. PROCEDURE: Axial images were obtained from the lung bases to the pubic symphysis by computed tomography. This study was performed with techniques to keep radiation doses as low as reasonably achievable, (ALARA). Individualized dose reduction techniques using automated exposure control or adjustment of mA and/or kV according to the patient size were employed. FINDINGS: ABDOMEN: There is a small right and moderate left pleural effusion. There is bibasilar consolidation. Post cholecystectomy. There is no hydronephrosis or nephrolithiasis. There is extensive anasarca. There is no significant free fluid or adenopathy. The solid organs are otherwise unremarkable. PELVIS: There is extensive anasarca. There is mild ascites. The urinary bladder is unremarkable. The appendix is normal. The right psoas muscle is mildly enlarged. There is increased density within the right psoas musculature consistent with intramuscular hematoma. Impression: Pleural effusions and bibasilar consolidation. Follow up to resolution recommended. Extensive anasarca but particularly in the pelvis. Mild ascites of uncertain etiology. Mild enlargement and heterogeneity in the lower right psoas muscle consistent with intramuscular hematoma. Images reviewed, interpreted, and dictated by Jairo Acosta MD . IMPRESSION: 1. Pyuria with possible acute bacterial cystitis. Urine culture from 09/11 negative. Partially treated. 2. Right hip hematoma after fall 09/05/2023. X-ray without fracture. 3. Reported chest x-ray infiltrate resolved. Could have had atelectasis, and is at risk for pulmonary embolus given demonstration of new DVT. 4. DVT right lower leg soleus and peroneal veins positive duplex 09/13/2023. 5. Leukocytosis, neutrophilic related to above issues. Ongoing. May be related to cystitis versus other. Blood cultures x 2 from 09/11 negative. 6. Hyponatremia related to above issues, medications, possible SIADH, versus other. 125 worse. 7. Anemia, related to above issues and right hip hematoma. Slt worse. 8. Hypocalcemia 8.0. 9. Elevated transaminase with ALT 213, ongoing, AST 308, ongoing, total bilirubin 0.9, alkaline phosphatase 45. Reportedly CT scan abdomen and pelvis at outside hospital without significant pathology. May need to repeat ultrasound versus other. Likely also related to muscle injury. 10. Rhabdo, CK 2217, ongoing. Related to her recent fall and trauma to leg. PLAN: 1. Diagnostically, continue to follow patient's physical exam, CBC, CMP, CRP, cultures which have been obtained. 2. Therapeutically, continue doxycycline and ceftriaxone pending further culture data. Duration to be determined but likely to be until 09/19 and reassess. Could change to po cefurox and doxy to facilitate discharge. 3. Supportive care. Room air on 09/13/2023. Orthopedics, nephrology, neurology evaluating. I discussed the patient's findings and my recommendations with the patient and nursing. Thank you for asking me to see Birgit Estrada. Our group would be pleased to follow this patient over the course of their hospitalization and assist with outpatient antimicrobial therapy, as indicated. Further recommendations depend on the results of the cultures and clinical course. Increased riskfor adverse drug reactions, complications of IV access, need for surgery, readmission. I prev discussed with the patient's son. Sim Cole MD 09/16/2023 * Flor Hernandez RD - 09/16/2023 1:[address] ADIME NUTRITION ASSESSMENT ADIME Nutrition Assessment The patient is a 73 y.o. [facility]. Present on Admission: None (Admitting Diagnoses) Hyponatremia Pneumonia Dehydration Right hip hematoma Nutrition Evaluation Type: Follow Up Reason for Evaluation: BMI <19 Subjective Comments: 09/15: High f/u. Pt remains confused and not appropriate for interview. Was scheduled for transport to facility but not medically ready for d/c. Has been complaining of pain in legs. 25% of intake recorded in chart. Per PCT, pt is eating minimally, drinking at least one ensure daily with the goal of drinking 2. 09/12: RD reviewed chart due to remote. notes pt confused, uncooperative, not appropriate for phone interview at this time. Neurology being consulted. Pt is on a regular diet, eating 0% of meals documented. No charted wt hx. Will add ONS prn. Past Medical/Surgical History: Past Medical History: Diagnosis Date ??? Arthritis ??? Hypertension Past Surgical History: Procedure Laterality Date ??? CHOLECYSTECTOMY ??? TONSILLECTOMY ??? TUBAL LIGATION Vitals and Basic Assessment: Vitals: Vitals: 09/16/23 1212 BP: 138/54 Pulse: 86 Resp: Temp: 97.3 ??F (36.3 ??C) SpO2: 98% Oxygen: room air [place] Scale: [place] Scale Score: 13 Last BM: [employer] GI Symptoms: nondistended active BS Edema: Edema: Right lower extremity, Left lower extremity Skin: intact Allergies: No Known Allergies Scheduled Medications: ??? acetaminophen ??? ALPRAZolam ??? cefTRIAXone ??? cloNIDine HCL ??? cyclobenzaprine ??? docusate sodium ??? doxycycline ??? enoxaparin ??? famotidine ??? furosemide ??? gabapentin ??? hydrALAZINE ??? ipratropium-albuteroL ??? melatonin ??? morphine ??? ondansetron Or ??? ondansetron PF ??? oxyCODONE ??? polyethylene glycol 3350 ??? polyethylene glycol 3350 ??? senna-docusate ??? sodium chloride 0.9% (NS) ??? sodium chloride Drips: none Pertinent Labs: FSBG 126/128/125/125 Anthropometrics: Ht: Height: 160 cm (5' 3 ) Wt: Weight: 48.5 kg (107 lb) Wt hx: none documented BMI: Body mass index is 18.95 kg/m??. IBW: 52kg Percent IBW: 93% Current Nutrition Intake: Diet Orders: Diet Order(s): Regular Diet Fluid restriction/24 hours: 1200 ml fluid restriction Supplements: Ensure Intake: 25% x 1 meal recorded Enteral Nutrition? no Diet Experience and Nutrition History: Previous Nutrition Education: unsure Diet Education Provided: not appropriate at this time Nutrition Focused Physical Exam: Date performed: defer Physical signs of fat or muscle wasting with severity: --- Energy intake hx: --- Wt loss: --- Assessment of Malnutrition: Unable to complete malnutrition evaluation at this time. Nutrition Diagnoses: Problem #1: Inadequate Oral Intake Etiology: altered mentation Signs/Symptoms: pt eating 0% of documented meals Status: Ongoing Problem #2: Underweight Etiology: advanced age Signs/Symptoms: BMI 18.9 Status: Ongoing Nutrition Interventions and Recommendations: Collaboration with other providers, General, [employer] beverage Nutrition Monitoring and Goals: 1. Continue regular diet + Ensure Enlive BID Goal: po intakes > 50% from meals and ONS 2. Weigh 1-2x weekly Goal: no significant wt changes Nutrition Risk Level: High Risk Flor Hernandez MS, RD, LD * Ashely Rolon LCSW - 09/16/2023 1:49 PM EDTSummary: Progress Social Work Progress Note Patient is not medically ready. CM notified [place] with [facility]. CM re- ararnged [employer] for 4/6 at 1 pm. Cm will continue to follow. Ashely Rolon LCSW * Nathaniel Wakefield MD - 09/16/2023 12:45 PM EDT Subjective Since I saw the patient yesterday, the following has happened: 1) the patient tells me she still extremely weak in her legs and hurting in her legs. Patient received 2 injections of 2 mg morphine yesterday. So far she has received 2 doses of oral oxycodone 5 mg. 2) a note is not in the chart yet but the nursing staff tells me physical therapy worked with the patient this morning and sat her up on the side of the bed. Physical therapy also provided the patient with Multi-Podus boots for her feet and SCDs for her lower extremities. 3) yesterday the vascular surgery service wrote an order for JAMEY billy but this has not been appliedto the patient as of yet. 4) the patient still has swelling in her lower extremities. The patient did receive a dose of albumin as ordered by the renal service. Her sodium level today is 126 and the renal service is starting salt tabs today. Current Facility-Administered Medications: ??? acetaminophen (TYLENOL) tablet 650 mg, 650 mg, Oral, Q6H PRN ??? ALPRAZolam (XANAX) tablet 0.5 mg, 0.5 mg, Oral, Q4H PRN ??? cefTRIAXone (ROCEPHIN) 2 g in sodium chloride 0.9 % (NS) MBP 50 mL IVPB, 2 g, Intravenous, Q24H ??? cloNIDine HCL (CATAPRES) tablet 0.1 mg, 0.1 mg, Oral, Q8H PRN ??? cyclobenzaprine (FLEXERIL) tablet 10 mg, 10 mg, Oral, TID PRN ??? docusate sodium (COLACE) capsule 100 mg, 100 mg, Oral, BID PRN ??? doxycycline (VIBRAMYCIN) 100 mg in sodium chloride 0.9 % (NS) MBP 100 mL IVPB, 100 mg, Intravenous, Q12H ??? enoxaparin (LOVENOX) syringe 50 mg, 50 mg, Subcutaneous, Q12H ??? famotidine (PEPCID) tablet 20 mg, 20 mg, Oral, BID ??? gabapentin (NEURONTIN) capsule 300 mg, 300 mg, Oral, BID ??? hydrALAZINE (APRESOLINE) injection 10 mg, 10 mg, Intravenous, Q4H PRN ??? ipratropium-albuteroL (DUO-NEB) 0.5-2.5 (3) mg/3 mL nebulizer solution 3 mL, 3 mL, Nebulization, Q4H PRN ??? melatonin tablet 6 mg, 6 mg, Oral, Every Night PRN ??? morphine injection 2 mg, 2 mg, Intravenous, Q4H PRN ??? ondansetron (ZOFRAN-ODT) disintegrating tablet 4 mg, 4 mg, Oral, Q8H PRN OR ondansetron PF (ZOFRAN) injection 4 mg, 4 mg, Intravenous, Q8H PRN ??? oxyCODONE (ROXICODONE) immediate release tablet 5 mg, 5 mg, Oral, Q4H PRN ??? polyethylene glycol (GLYCOLAX) packet 17 g, 17 g, Oral, Daily PRN ??? polyethylene glycol (GLYCOLAX) packet 17 g, 17 g, Oral, Daily ??? senna-docusate (SENOKOT S) tablet 8.6-50 mg, 1 tablet, Oral, Every Night ??? Insert Peripheral IV, , , Once AND Saline Lock IV, , , Once AND sodium chloride 0.9% (NS) flush 10 mL, 10 mL, Intravenous, PRN ??? sodium chloride disintegrating tablet 1 g, 1 g, Oral, Once Review of Systems -the patient is using a pure wick system for urination. Objective Last Recorded Vitals Blood pressure 138/54, pulse 86, temperature 97.3 ??F (36.3 ??C), temperature source Oral, resp. rate 16, height 1.6 m (5' 3 ), weight 48.5 kg (107 lb), SpO2 98 %. Physical Exam Normally appearing female in moderate amount of distress. Her extraocular moods are intact she is able to tell me where whereat and the month and the year. She has normal strength in her arms. She was unable to raise either hip off the bed. She was barely able to bend her left knee and was unable to bend her right knee. Her right foot is kept in a flexed position. She was unable to plantarflex her right foot she was barely able to plantarflex her left foot. Reflexes are 2+ at the left knee in 1 place 1+ at the right knee. She has pitting edema in both calves and mild to moderate edema in her thighs. Did make some measurements of the circumference of her thigh and calf. 6 cm above the right knee her circumference of her thigh is roughly 41 cm. 6 cm below the knee on the right the circumference of her calf is roughly 33 cm. 6 mm above the left knee the circumference of her left thigh is roughly 40.5 cm. 6 cm below her left knee the circumference of her left calf is roughly 31 cm. Labs: Results for orders placed or performed during the hospital encounter of 09/12/23 (from the past 24 hour(s)) Sodium Status: Abnormal Collection Time: 09/15/23 1:25 PM Result Value Ref Range Sodium 124 (L) 136 - 146 meq/L Sodium Status: Abnormal Collection Time: 09/15/23 5:15 PM Result Value Ref Range Sodium 126 (L) 136 - 146 meq/L Sodium Status: Abnormal Collection Time: 09/15/23 9:12 PM Result Value Ref Range Sodium 125 (L) 136 - 146 meq/L CBC - Hemogram (SJ-BKR) Status: Abnormal Collection Time: 09/16/23 2:20 AM Result Value Ref Range WBC 15.0 (H) 4.0 - 10.0 K/??L RBC 2.74 (L) 3.93 - 5.22 M/??L Hemoglobin 8.1 (L) 11.2 - 15.7 GM/DL Hematocrit 23.5 (L) 34.1 - 44.9 % MCV 86 79 - 95 fL MCH 29.6 25.6 - 32.2 pg MCHC 34.5 32.2 - 35.5 GM/DL RDW 13.8 11.7 - 14.4 % Platelets 259 140 - 375 K/CU MM MPV 10.6 9.4 - 12.3 fL Basic Metabolic Panel Status: Abnormal Collection Time: 09/16/23 2:21 AM Result Value Ref Range Sodium 125 (L) 136 - 146 meq/L Potassium 4.3 3.5 - 5.1 meq/L Chloride 92 (L) 102 - 112 meq/L CO2 29 21 - 32 meq/L Anion Gap 8 (L) 9 - 20 BUN 16 7 - 22 mg/dL Creatinine 0.69 0.55 - 1.02 mg/dL BUN/Creatinine 23 (H) 8 - 20 Glucose 106 74 - 106 mg/dL Calcium 8.6 8.4 - 10.1 mg/dL Osmolality Calc 253.1 eGFR (mL/min/1.73m2) >60 >=60 mL/min/1.73m2 Ammonia Status: Abnormal Collection Time: 09/16/23 2:21 AM Result Value Ref Range Ammonia <10 (L) 11 - 32 ??mol/L Creatine Kinase (CK) Status: Abnormal Collection Time: 09/16/23 2:21 AM Result Value Ref Range Total CK 2,217 (H) 26 - 192 U/L TSH with Reflex FT4 Status: Normal Collection Time: 09/16/23 2:21 AM Result Value Ref Range TSH 2.500 0.358 - 3.740 uIU/mL Sodium Status: Abnormal Collection Time: 09/16/23 8:31 AM Result Value Ref Range Sodium 126 (L) 136 - 146 meq/L XR chest AP portable Narrative: PORTABLE CHEST. 09/16/2023 7:55 AM HISTORY: Shortness of breath. COMPARISON: September 12, 2023. FINDINGS: The cardiac silhouette is normal in size. The mediastinum is unremarkable. The lungs are clear. There is no pneumothorax. Impression: No acute cardiopulmonary process. Images reviewed, interpreted, and dictated by Dr. Jairo Acosta. Transcribed by Jane Stephens PA-C. Assessment Birgit Estrada is a 73-year-old female with hypertension and depression who was transferred to our hospital on September 11 from the inpatient service at [facility] after she fell and was found to have hyponatremia . ?? She has been placed on anticoagulation on September 12 for aright lower extremity DVT. In talking with the son, the patient fell down on September 04 at home while trying to help her (who has Lewy body disease) change clothes. A couple hours after falling she complained of hip pain [facility]. Over the next 2 days the patient continued to have severe hip pain and was having some nausea. The patient was taken back to [facility] apparently on September 07 and according to the son thepatient walked into [facility] and was found to have low sodium with a sodium 122. According to the son for the first few days at [facility] the patient was walking with a walker but then he noticed that the patient was staying in bed on September 10 and the patient has been complaining of severe hip pain and leg weakness since that time. ?? I was asked to see her for confusion and right leg weakness on September 12. Head CT shows no acute changes. She is on Lovenox as of September 12 for right lower extremity DVT. Specifically an ultrasound of her right lower extremity suggest a DVT in the peroneal vein and soleal vein. On exam she has weakness in both legs but she is weaker in the right leg than the left leg. I did aCT scan of her abdomen pelvis on September 13 which suggest some slight enlargement of the distal right psoas muscle that could be potentially consistent with intramuscular hematoma. The radiologist also made note on the CT scan of her abdomen and pelvis that there is extensive anasarca particularly in the pelvis. However I do not think even if she has an intramuscular hematoma of the right psoas that this wouldbe causing all of her signs and symptoms at this time. On September 14 the patient had an MRI of her lumbar and thoracic spine that showed nonspecific changes that would not be causing her symptoms. Does have bruising of her right posterior thigh and left lateral thigh. A vitamin B12 and folate level are normal. She also has pitting edema in both legs which is worse on the right than the left. A CK was elevated at 3300 on September 14. Today the CK has improved to 2200. She still has hyponatremia and the renal service gave her albumin on September 14 and starting her on salt tablets today. Her sodium today is 126. The differential for her bilateral leg weakness and pain could include one or combination of the followin) Musculoskeletal pain after a fall. 2) Myopathy. 3) Manifestation of bruising and anasarca. 4) Structural disease of her spine and/or brain. 5) Manifestation of a intramuscular psoas hematoma-I do not think this is causing all of her symptoms and signs. 6) Vasculitis. 7) Functional disorder. 8) Structural disease of her legs. 9) Vascular insufficiency. 10) Injury to the lumbar sacral plexus and/or injury to the sciatic nerves. At this time I do not know the exact etiology of her bilateral leg weakness and pain and there are multiple potential causes. ?? At this time, I recommend the following: ?? 1) At discharge she should follow-up with an outpatient neurologist not drive until released by physician. 2) Given the possibility of an intramuscular hematoma in the right psoas, to continue weighing the risk and benefits of anticoagulation for her recently discovered right lower extremity DVT. 3) I am going to recommend a trial of Neurontin 300 twice a day to see if this would help with any neuropathic pain. 4) as her CK was elevated at 3300 on September 14 and is 2200 today, I will repeat a CK tomorrow. 5) continue treating underlying medical conditions as you are. 6) I agree with physical therapy. 7) I agree with albumin infusion to see if this will help with anasarca. 8) if she can tolerate it, I am going to order an MRI of her brain and cervical spine. 9) if she can tolerate I am going to order x-rays of her femurs to rule out any structural problem of her femurs. 10) I note that physical therapy is placed SCDs on the patient's legs. I think this is a reasonableidea to try to reduce the swelling around the legs which may overall help the clinical state. I will officially order SCDs at this time. 11) I also agree with JAMEY hose or compression stockings to her lower extremities as vascular surgery has recommended as well. I called the patient's son up today and gave him an update. I have also called the air drier, Dr. Mooney, today to discuss case. Dr. Mooney is going to try diuretics to try to reduce swelling in lower extremities. Reducing swelling in legs may reduce pain and weakness in legs. I have spent an hour on this case today. Over half that time was spent reviewing the chart, counseling the patient and her son on the phone as well as coordinating care with the nursing staff. Plan * Cornelius Mccarty MD - 09/16/2023 11:28 AM EDT Subjective Patient confused Awake No nausea or vomiting No fever Last Recorded Vitals Blood pressure (!) 157/72, pulse 80, temperature 98.1 ??F (36.7 ??C), temperature source Oral, resp. rate 16, height 1.6 m (5' 3 ), weight 48.5 kg (107 lb), SpO2 96 %. Physical Exam Head atraumatic normocephalic Pupils round and reactive Eyes no conjunctival injection or discharge Ears no discharge Nose no bleeding or discharge Mouth dry Neck supple forage of motion Chest diminished entry bilaterally no wheezes heart S1 and S2 healed regular rate Abdomen soft audible bowel sounds Extremities bilateral extremity edema with right hip discoloration Neurological patient alert awake move extremities Psychiatric anxiety Skin right hip area discoloration Labs: Results for orders placed or performed during the hospital encounter of 09/12/23 (from the past 24 hour(s)) Sodium Status: Abnormal Collection Time: 09/15/23 1:25 PM Result Value Ref Range Sodium 124 (L) 136 - 146 meq/L Sodium Status: Abnormal Collection Time: 09/15/23 5:15 PM Result Value Ref Range Sodium 126 (L) 136 - 146 meq/L Sodium Status: Abnormal Collection Time: 09/15/23 9:12 PM Result Value Ref Range Sodium 125 (L) 136 - 146 meq/L CBC - Hemogram (SJ-BKR) Status: Abnormal Collection Time: 09/16/23 2:20 AM Result Value Ref Range WBC 15.0 (H) 4.0 - 10.0 K/??L RBC 2.74 (L) 3.93 - 5.22 M/??L Hemoglobin 8.1 (L) 11.2 - 15.7 GM/DL Hematocrit 23.5 (L) 34.1 - 44.9 % MCV 86 79 - 95 fL MCH 29.6 25.6 - 32.2 pg MCHC 34.5 32.2 - 35.5 GM/DL RDW 13.8 11.7 - 14.4 % Platelets 259 140 - 375 K/CU MM MPV 10.6 9.4 - 12.3 fL Basic Metabolic Panel Status: Abnormal Collection Time: 09/16/23 2:21 AM Result Value Ref Range Sodium 125 (L) 136 - 146 meq/L Potassium 4.3 3.5 - 5.1 meq/L Chloride 92 (L) 102 - 112 meq/L CO2 29 21 - 32 meq/L Anion Gap 8 (L) 9 - 20 BUN 16 7 - 22 mg/dL Creatinine 0.69 0.55 - 1.02 mg/dL BUN/Creatinine 23 (H) 8 - 20 Glucose 106 74 - 106 mg/dL Calcium 8.6 8.4 - 10.1 mg/dL Osmolality Calc 253.1 eGFR (mL/min/1.73m2) >60 >=60 mL/min/1.73m2 Ammonia Status: Abnormal Collection Time: 09/16/23 2:21 AM Result Value Ref Range Ammonia <10 (L) 11 - 32 ??mol/L Creatine Kinase (CK) Status: Abnormal Collection Time: 09/16/23 2:21 AM Result Value Ref Range Total CK 2,217 (H) 26 - 192 U/L TSH with Reflex FT4 Status: Normal Collection Time: 09/16/23 2:21 AM Result Value Ref Range TSH 2.500 0.358 - 3.740 uIU/mL Sodium Status: Abnormal Collection Time: 09/16/23 8:31 AM Result Value Ref Range Sodium 126 (L) 136 - 146 meq/L XR chest AP portable Narrative: PORTABLE CHEST. 09/16/2023 7:55 AM HISTORY: Shortness of breath. COMPARISON: September 12, 2023. FINDINGS: The cardiac silhouette is normal in size. The mediastinum is unremarkable. The lungs are clear. There is no pneumothorax. Impression: No acute cardiopulmonary process. Images reviewed, interpreted, and dictated by Dr. Jaior Acosta. Transcribed by Jane Stephens PA-C. Assessment #1 hyponatremia Patient mid to the hospital from nephrology evaluation will check electrolytes start IV fluid CT of chest done with no apparent malignancy ?? 2 pneumonia patient already on IV Zosyn doxycycline breathing treatment oxygen cultures ordered ?? #3 dehydration patient started on IV fluid ?? #4 anxiety restart Xanax as needed ?? #5 hypertension start hydralazine as needed ?? #6 GI prophylaxis Pepcid ?? #7 right hip hematoma will consult Ortho start pain control ? #8 DVT prophylaxis 09/16/2023 Plan Altered mental status/acute encephalopathy Consult neurology Improving Lower extremity deep vein thrombosis Patient with pleural effusion Will consult pulmonary Sodium improving CAT scan palliative care Patient will need placement when medically stable Discharge Planning: Patient not medically stable to be discharge Will consult case management patient will need rehab * Marlene Burkett OTR/L - 09/16/2023 9:40 AM EDT Images from the original note were not included. Inpatient Occupational Therapy Treatment Note Patient Name: Birgit Estrada Date of : 1950 Date of Treatment: 09/16/23 Start Time: 907 Stop Time: 939 Session Duration: 32 minutes This patient is a 73 y.o. female admitted on 09/12/2023 with Weakness [R53.1]. Past Medical History: Diagnosis Date ??? Arthritis ??? Hypertension Past Surgical History: Procedure Laterality Date ??? CHOLECYSTECTOMY ??? TONSILLECTOMY ??? TUBAL LIGATION General Visit type: Treatment Approved by: Nurse Vincent Patient disposition upon entry: Patient verified by name, Patient verified by date of , Supinein bed, All needs met and within reach, Call light/pull cord in reach, Bed alarm applied, Head of bed >30 degrees Co-treated by: PT Precautions Weightbearing status: Weight bearing as tolerated (WBAT), Right lower extremity Precautions: Fall risk Isolation precautions: Standard LDA/Brace/Protective equipment: Lines, drains, and airways: external urinary catheter , peripheral IV, telemetry Subjective Subjective: Pt agreeable Pain 0-10 SCALE Pain location: Feet 8/10. Pain intervention: Repositioned Nurse notified Ambulation/increased activity. Response to intervention: Not changed Cognition Cognition: Overall cognitive status: Impaired Orientation level: Oriented x4 Following commands: Follows one step commands with increased time Follows one step commands with repetition Follows commands 75 % of the time Objective Bed mobility:Rolling: Maximal assistance, Rolling to left and right, 1 person assist Scooting: Total Assistance, 2 person assist, Head of bed flat Supine to sit: Maximal assistance, 2 person assist Sit to supine: Maximal assistance, 2 person assist Transfers:Sit to stand:Moderate assistance, 2 person assist, Gait belt used, Rolling walker used Stand to sit:Moderate assistance, 2 person assist, Gait belt used, Rolling walker used ADLs:Grooming:Minimal Assistance, Sitting edge of bed Upper body dressing:Maximal Assistance, Sitting edge of bed Lower body dressing:Maximal Assistance, Sitting edge of bed Balance:Static sitting balance:Fair: Patient able to maintain balance with handheld support, may require occasional minimal assistance Therapeutic Exercise:UE therapeutic exercise Shoulder flexion, All exercises performed for 1 set of 10 reps Activity Tolerance Patient limited with activity/intervention due to pain, weakness and Comment: confusion Treatment Pt and RN approved OT tx at this time. Pt tolerated OT tx fair, further mobility limited by pain, weakness, and confusion. Pt oriented, however, confused with conversation this date. Pt followed 75% commands with increased time and cues. Pt supine in bed upon OT arrival. Pt rolled to left and rightwith Max A for linen adjustment. Pt to EOB with Max Ax2. Pt sat EOB for 10 minutes with CGA to Min A secondary to posterior lean. While sitting EOB, pt required Max A to don new gown and socks. Pt then completed grooming tasks with Min A. Pt reported RUE shoulder pain while brushing hair. Pt then participated in BUE AAROM shoulder flexion exercises, 10x each side. Pt stood from bed with RWx and Mod Ax2. Pt able to stand approx. 15 seconds with RWx and Mod Ax2. Pt sat EOB with Mod Ax2 and returned to supine with Max Ax2. Pt dependent to scoot to HOB. Pt with significant pain in BLEs throughouttreatment, preventing further mobility at this time. Pt left supine in bed with call light within reach, HOB elevated, and bed alarm activated. Assessment Assessment Pt continues to present with weakness and decreased independence with ADLs and would continue to benefit from skilled OT services to improve fxnl status. Plan Recommendations Discharge recommendations: Patient would benefit from 1-2 hours of multidisciplinary therapy per day upon discharge from acute care setting to assist with returning to prior level of functioning. DME recommendations: Unable to make adaptive/DME recommendations at this time. Treatment Plan: Continue OT POC OT Frequency/Duration: 3x/week for 14 days Goals Grooming: grooming with modified independence Toileting: toileting with supervision. Bed mobility: bed mobility with modified independence. Functional transfers: ambulatory transfer with supervision. ?? Target Date: 09/27/2023 Goals were discussed with patient Progress towards goals: progressing Education Patient educated on safety, use of call light, role of occupational therapy, patient's plan of careand following, they were not able to verbalize understanding. Patient Disposition Upon Leaving Patient Disposition: Supine in bed, All needs met and within reach, Call light/pull cord in reach, Bed alarm applied, Head of bed >30 degrees If this patient discharges prior to next therapy session, this note serves as the patient's discharge summary. Electronically signed by KACI Saha/Pb - 09/16/2023 - 1:46 PM EDT * Haven Mooney MD - 09/16/2023 9:26 AM EDT Subjective: Seen and examined at bedside. No acute events overnight. No new complain No CP, SOA, N/V, fever, chills or rash Objective: Blood pressure (!) 157/72, pulse 80, temperature 98.1 ??F (36.7 ??C), temperature source Oral, resp. rate 16, height 1.6 m (5' 3 ), weight 48.5 kg (107 lb), SpO2 95 %. Intake/Output Summary (Last 24 hours) at 09/16/2023 0926 Last data filed at 09/16/2023 0800 Gross per 24 hour Intake 120 ml Output 1800 ml Net -1680 ml 09/14 0700 - 09/15 0659 In: - Out: 1800 [Urine:1800] Physical Exam: GEN: NAD Neuro: AAO no focal deficits seen Psychiatric: Normal mood and affect. Cooperative with exam Eyes: Nonicteric, pupils equal, no conjunctivitis ENT: OMM moist, no lesion seen Neck: No JVD discernible, trachea appears midline Cardiovascular: Regular rate, + edema Respiratory: Quiet respirations, symmetrical chest expansion Abdomen: NTTP Nondistended : No Red catheter, no palp bladder Skin: No rash or lesions Labs: Recent Labs Lab(s) Units 09/16/23 0220 09/15/23 0236 09/14/23 0248 WBC K/??L 15.0* 15.7* 13.4* HGB GM/DL 8.1* 9.4* 7.9* PLT K/CU MM 259 259 180 Recent Labs Lab(s) Units 09/16/23 0831 09/16/23 0221 09/15/23 2112 09/15/23 1715 09/15/23 0808 09/15/23 0236 09/14/23 1325 09/14/23 0249 09/13/23 2314 09/13/23 1234 09/13/23 0148 09/12/23 1808 NA meq/L 126* 125* 125* 126* < > 126* 126* < > 124* < > 125* 124* < > 121* K meq/L -- 4.3 -- -- -- 4.1 -- 4.1 -- 4.2 < > 4.4 CL meq/L -- 92* -- -- -- 91* -- 94* -- 91* < > 88* CO2 meq/L -- 29 -- -- -- 27 -- 24 -- 28 < > 27 BUN mg/dL -- 16 -- -- -- 19 -- 22 -- 24* < > 30* CREATININE mg/dL -- 0.69 -- -- -- 0.82 -- 0.80 -- 0.94 < > 1.03* CALCIUM mg/dL -- 8.6 -- -- -- 8.4 -- 8.0* -- 8.4 < > 8.2* ALBUMIN g/dL -- -- -- -- -- -- -- 2.3* -- -- -- 2.9* < > = values in this interval not displayed. A/P: 1- Hyponatremia- Asymptomatic - 119 at presentation at [facility]. 121 at [facility].-Urine osmolarity 892, urinesodium less than 15, serum osmolarity 261. At home on HCTZ - Stable at 126. 2- Hypertension 3- Right hip hematoma 4- Right lower extremity DVT. 5- Anemia 6- Elevated liver enzymes ?? Plan: - Fluid restriction - will give a dose of salt tablet - Serial sodium monitoring. - May need 3% saline infusion if further drop in sodium below 120. Haven Mooney MD 09/16/23 2:31 PM * Hayder Stark PT - 09/16/2023 9:08 AM EDT Images from the original note were not included. Inpatient Physical Therapy Treatment Patient Name: Birgit Estrada Date of : 1950 Date of Treatment: 09/16/23 Start Time 907 Stop Time 939 Session Duration 32 minutes General Visit Type: Treatment Approved by: Nurse Vincent Patient Disposition Upon Entry: Supine in bed, Call Light/Pull Cord in reach, HOB >30 degrees Patient Verified By: Name and Date of Co-treated by: OT Precautions Weight-Bearing Status: No Restrictions Precautions: Fall risk PT/OT as tolerated per vascular Isolation Precautions: Standard Subjective Subjective: Patient agreeable to physical therapy treatment. Pain Yes. 0-10 SCALE Pain location: R hip 8 or 10 - RN notified and present for medications Cognition Arousal/Alertness: Delayed response to stimuli Lethargic Confused Attention Span: Difficulty attending to directions Following commands: Able to follow commands appropriately with tactile cueing Able to follow commands appropriately with verbal cueing Follows one step commands with increased time Follows one step commands with repetition Awareness of Errors: Assistance require to identify errors made Assistance required to correct errors made Decreased awareness of errors Objective Vitals Functional Mobility Bed Mobility: Supine to Sit: maximal assistance, 2-person assist Sit to Supine: maximal assistance, 2-person assist Transfers Sit to Stand: moderate assistance, 2-person assist, rolling walker used Stand to Sit: moderate assistance, 2-person assist, rolling walker used Gait Not assessed this date. Stair Management Not assessed this date. Wheelchair Mobility Not assessed this date. AM-PAC Basic Mobility Inpatient Short Form How much difficulty does the patient currently have: Turning over in bed (including adjusting bedclothes, sheets, and blankets)? (1) Total/Unable (not able to do the activity or can only perform the activity using assistive devices or requires assistance from another person, including supervision or cueing for safety) Sitting down on and standing up from a chair with arms (e.g., wheelchair, bedside commode, etc.)? (1) Total/Unable (not able to do the activity or can only perform the activity using assistive devices or requires assistance from another person, including supervision or cueing for safety) Moving from lying on back to sitting on side of bed? (1) Total/Unable (not able to do the activity or can only perform the activity using assistive devices or requires assistance from another person,including supervision or cueing for safety) How much help from another person does the patient currently need: Moving to and from a bed to a chair (including a wheelchair)? (2) A lot (Maximal/Moderate assist) Need to walk in hospital room? (1) Total/Unable (Total assist/dependent) Climbing 3-5 steps with a railing? (1) Total/Unable (Total assist/dependent) Score Raw score=7 t-scale score=26.42 Standard error=4.33 [facility] 0-100%=92.36% MDC=4.72 A raw score of >= 16 is significantly associated with increased odds of discharge to home in addition to consideration made for the patient's cognition and social determinants of health. Balance Static/dynamic sitting and static/dynamic standing balance grades Balance Grade Sitting Static Poor - patient requires handhold support and moderate to maximal assistance to maintain position Sitting Dynamic Poor - patient unable to accept challenge or move without loss of balance Standing Static Poor - patient requires handhold support and moderate to maximal assistance to maintain position Standing Dynamic Poor - patient unable to accept challenge or move without loss of balance Activity Tolerance Patient limited with activity/intervention due to pain, fatigue, deconditioning and weakness Treatment Performed sup to sitting EOB on R side maxA x2. Upon sitting, pt with noted limited Bilat knee flexion and RLE in ankle PF display throughout. Sit to stand with RWx modA x2 but noted poor RLE WB due to ankle PF throughout. Static sitting EOB ~7min. Static standing ~20sec with RWx modA x2 Attempts for ROM/therapeutic ex but noted limited knee flex/extension and RLE in ankle PF display. Assessment Pt with weakness, limited endurance, decreased functional mobility and notable BLE contracture likedisplay with RLE in ankle PF display. Sit to stand attempt but poor balance needing modA x2 and pt with psoterior lean throughout. Pt will cont to benefit from skilled PTx services to improve functional mobility and safety. Plan Treatment Plan: Therapeutic Exercise, Therapeutic Activity, Gait Training, Transfer Training, Balance Training, Stair Training, Strengthening, Home Exercise Program, ROM, Patient/Family/Caregiver Education, DME Recommendations, Stretching, Co-Treat with OT PT Frequency/Duration: 5x/week for 14 days ?? Recommendations Discharge recommendations: Patient would benefit from 3 hours of intensive multidisciplinary therapy per day to maximize functional outcomes and address functional limitations to return to highest level of functioning. ?? DME recommendations: no needs if discharging to rehab ?? Goals Supine to/from sit: mod I with rail Sit to/from stand: SBA with RWx Gait: 150 ft SBA with RWx Stair Negotiation: 1 stair, no rail min A Target Date: 09/27/2023 Goals were discussed with: pt too confused to discuss goals, no family present ?? Education Patient educated on safety, role of physical therapy, plan of care, transfers, bed mobility, need for assistance and risk for falls and following, they were not able to verbalize and demonstrate understanding. No further questions or concerns stated. ?? Patient Disposition Upon Leaving Supine in bed, Call Light/Pull Cord in reach, All needs met and within reach, Nursing aware/notified, Side rails up, Bed Alarm applied ?? If this patient discharges prior to next therapy session, this note serves as the patient's discharge summary. Electronically signed by Hayder Stark PT - 09/16/23 - 12:47 PM EDT * Ray Draper PA-C - 09/16/2023 7:07 AM EDT Brief visit note Patient states pain is improving. Patient states she still has not mobilized out of bed this hospital stay. Swelling to right hip less. Ecchymotic lesion less pronounced than index exam. Sensorimotor exam right lower extremity normal. GLF with right-sided ecchymosis. Improving pain. PT ordered for daily mobilization and ADLs. Out ofbed to chair twice daily also ordered. Cosigned by Crescencio Perkins MD at 09/16/2023 8:40 AM EDT * Nathaniel Wakefield MD - 09/15/2023 5:45 PM EDT Subjective Since I last saw the patient yesterday, the following has happened: 1) The patient and staff tell me the patient still having a lot of pain. The nurse tells me the pain seems to be all over but the patient seems to point to both of her legs. The patient has been receiving as needed oxycodone and as needed IV morphine. She has received 3 doses of 5 mg of oxycodone today. She has received 1 dose of IV morphine 2 mg today. 2) the renal service is still seeing the patient for hyponatremia. Her sodium level has improved today to 126. The renal service has ordered some IV albumin for the patient today. 3) the patient still complains of difficulty moving her legs. 4) The patient had an MRI of her lumbar and thoracic spine. I will discuss this report later. Current Facility-Administered Medications: ??? acetaminophen (TYLENOL) tablet 650 mg, 650 mg, Oral, Q6H PRN ??? ALPRAZolam (XANAX) tablet 0.5 mg, 0.5 mg, Oral, Q4H PRN ??? cefTRIAXone (ROCEPHIN) 2 g in sodium chloride 0.9 % (NS) MBP 50 mL IVPB, 2 g, Intravenous, Q24H ??? cloNIDine HCL (CATAPRES) tablet 0.1 mg, 0.1 mg, Oral, Q8H PRN ??? cyclobenzaprine (FLEXERIL) tablet 10 mg, 10 mg, Oral, TID PRN ??? docusate sodium (COLACE) capsule 100 mg, 100 mg, Oral, BID PRN ??? doxycycline (VIBRAMYCIN) 100 mg in sodium chloride 0.9 % (NS) MBP 100 mL IVPB, 100 mg, Intravenous, Q12H ??? enoxaparin (LOVENOX) syringe 50 mg, 50 mg, Subcutaneous, Q12H ??? famotidine (PEPCID) tablet 20 mg, 20 mg, Oral, BID ??? hydrALAZINE (APRESOLINE) injection 10 mg, 10 mg, Intravenous, Q4H PRN ??? ipratropium-albuteroL (DUO-NEB) 0.5-2.5 (3) mg/3 mL nebulizer solution 3 mL, 3 mL, Nebulization, Q4H PRN ??? melatonin tablet 6 mg, 6 mg, Oral, Every Night PRN ??? morphine injection 2 mg, 2 mg, Intravenous, Q4H PRN ??? ondansetron (ZOFRAN-ODT) disintegrating tablet 4 mg, 4 mg, Oral, Q8H PRN OR ondansetron PF (ZOFRAN) injection 4 mg, 4 mg, Intravenous, Q8H PRN ??? oxyCODONE (ROXICODONE) immediate release tablet 5 mg, 5 mg, Oral, Q4H PRN ??? polyethylene glycol (GLYCOLAX) packet 17 g, 17 g, Oral, Daily PRN ??? polyethylene glycol (GLYCOLAX) packet 17 g, 17 g, Oral, Daily ??? senna-docusate (SENOKOT S) tablet 8.6-50 mg, 1 tablet, Oral, Every Night ??? Insert Peripheral IV, , , Once AND Saline Lock IV, , , Once AND sodium chloride 0.9% (NS) flush 10 mL, 10 mL, Intravenous, PRN Review of Systems Cardiac-she denies any chest pain. Objective Last Recorded Vitals Blood pressure 112/48, pulse 80, temperature 98.1 ??F (36.7 ??C), resp. rate 18, height 1.6 m (5' 3 ), weight 48.5 kg (107 lb), SpO2 100 %. Physical Exam Appears in mild distress due to pain. Her facies are symmetric speech is fluent she is alert and oriented x 3 she has normal strength in her arms. Sensation shows that she has an intact joint position sense in all her toes. I had the nurse help me roll her over on her left and right side. She has bruising on the posteriorright thigh and lateral left thigh. She does have some pitting edema in both legs that is worse on the right than on the left. She was unable to raise her right leg off the bed. She only had 2 out of 5 strength in her left hipflexor. She only had 2 out of 5 strength in her left knee flexor and 1 out of 5 strength in her right knee flexor. She was unable to dorsiflex or plantarflex her right foot but was able to do so in her left foot. Is a lot of pain when trying to move her legs. Labs: Results for orders placed or performed during the hospital encounter of 09/12/23 (from the past 24 hour(s)) Sodium Status: Abnormal Collection Time: 09/14/23 8:17 PM Result Value Ref Range Sodium 126 (L) 136 - 146 meq/L Glucose, Nova Meter Status: Abnormal Collection Time: 09/15/23 12:05 AM Result Value Ref Range POC-GLUCOSE 129 (H) 70 - 110 mg/dL [employer] [id number] Ammonia Status: Abnormal Collection Time: 09/15/23 2:35 AM Result Value Ref Range Ammonia <10 (L) 11 - 32 ??mol/L Basic Metabolic Panel Status: Abnormal Collection Time: 09/15/23 2:36 AM Result Value Ref Range Sodium 126 (L) 136 - 146 meq/L Potassium 4.1 3.5 - 5.1 meq/L Chloride 91 (L) 102 - 112 meq/L CO2 27 21 - 32 meq/L Anion Gap 12 9 - 20 BUN 19 7 - 22 mg/dL Creatinine 0.82 0.55 - 1.02 mg/dL BUN/Creatinine 23 (H) 8 - 20 Glucose 112 (H) 74 - 106 mg/dL Calcium 8.4 8.4 - 10.1 mg/dL Osmolality Calc 256.4 eGFR (mL/min/1.73m2) >60 >=60 mL/min/1.73m2 CBC - Hemogram (SJ-BKR) Status: Abnormal Collection Time: 09/15/23 2:36 AM Result Value Ref Range WBC 15.7 (H) 4.0 - 10.0 K/??L RBC 3.15 (L) 3.93 - 5.22 M/??L Hemoglobin 9.4 (L) 11.2 - 15.7 GM/DL Hematocrit 26.6 (L) 34.1 - 44.9 % MCV 84 79 - 95 fL MCH 29.8 25.6 - 32.2 pg MCHC 35.3 32.2 - 35.5 GM/DL RDW 13.2 11.7 - 14.4 % Platelets 259 140 - 375 K/CU MM MPV 11.0 9.4 - 12.3 fL Sodium Status: Abnormal Collection Time: 09/15/23 2:36 AM Result Value Ref Range Sodium 126 (L) 136 - 146 meq/L Creatine Kinase (CK) Status: Abnormal Collection Time: 09/15/23 2:36 AM Result Value Ref Range Total CK 3,345 (H) 26 - 192 U/L Glucose, Nova Meter Status: None Collection Time: 09/15/23 5:46 AM Result Value Ref Range POC-GLUCOSE 101 70 - 110 mg/dL [employer] [id number] Sodium Status: Abnormal Collection Time: 09/15/23 8:08 AM Result Value Ref Range Sodium 126 (L) 136 - 146 meq/L Glucose, Nova Meter Status: None Collection Time: 09/15/23 10:36 AM Result Value Ref Range POC-GLUCOSE 107 70 - 110 mg/dL [employer] [id number] Sodium Status: Abnormal Collection Time: 09/15/23 1:25 PM Result Value Ref Range Sodium 124 (L) 136 - 146 meq/L Sodium Status: Abnormal Collection Time: 09/15/23 5:15 PM Result Value Ref Range Sodium 126 (L) 136 - 146 meq/L MR thoracic spine without IV contrast, MR spine lumbar without IV contrast Narrative: Name: BIRGIT ESTRADA : 1950 NONINFUSED LUMBAR SPINE MRI HISTORY: Severe hip pain and leg weakness. FINDINGS: On the sagittal images, mild decreased signal is identified throughout the lumbar discs. Vertebrae are of normal height. No malalignment is seen. L1-2: No disc bulge or protrusion. L2-3: No disc bulge or protrusion. L3-4: Mild to moderate diffuse disc bulge is present. Small posterolateral disc protrusions are present. There is mild to moderate bilateral neural foraminal narrowing. Moderate hypertrophic changes are seen at the facet joints bilaterally. L4-5: Mild to moderate diffuse disc bulge is present. Small posterolateral disc protrusions are present. There is mild to moderate bilateral neural foraminal narrowing. Moderate hypertrophic changes are seen at the facet joints bilaterally. L5-S1: No significant disc bulge or protrusion. Impression: 1. Posterolateral disc protrusions L3-4 and L4-5 with bilateral facet hypertrophy. Mild to moderate bilateral neural foraminal compromise. 2. No evidence of acute osseous abnormality. NONINFUSED THORACIC SPINE MRI HISTORY: Back pain. FINDINGS: On the sagittal images, abnormal decreased signal is identified throughout the thoracic discs. Vertebrae are of normal height. No malalignment is seen. Thoracic cord demonstrates normal signal and configuration. On the axial images, there is no evidence of significant disc bulge or protrusion. Incidental note is made of moderate bilateral pleural effusions. IMPRESSION: 1. Diffuse changes of degenerative disc disease, without evidence of significant spinal or neural foraminal compromise. 2. No evidence of acute osseous abnormality. 3. Moderate bilateral pleural effusions. Images reviewed, interpreted, and dictated by Jose Barnes MD I have reviewed both of these MRIs and see no specific explanation for her symptoms based on these MRIs. Assessment Birgit Estrada is a 73-year-old female with hypertension and depression who was transferred to our hospital on September 11 from the inpatient service at [facility] after she fell and was found to have hyponatremia . ?? She has been placed on anticoagulation on September 12 for aright lower extremity DVT. In talking with the son, the patient fell down on September 04 at home while trying to help her (who has Lewy body disease) change clothes. A couple hours after falling she complained of hip pain [facility]. Over the next 2 days the patient continued to have severe hip pain but was able to walk in on And was admitted to [facility] for hip pain and hyponatremia. According to the son for the first few days at [facility] the patient was walking with a walker but then he noticed thatthe patient was staying in bed on September 10 and the patient has been complaining of severe hip pain and leg weakness since that time. ?? I was asked to see her for confusion and right leg weakness on September 12. Head CT shows no acute changes. She is on Lovenox as of September 12 for right lower extremity DVT. Specifically an ultrasound of her right lower extremity suggest a DVT in the peroneal vein and soleal vein. Exam she has weakness in both legs but she is weaker in the right leg than the left leg. I did a CTscan of her abdomen pelvis on September 13 which suggest some slight enlargement of the distal right psoas muscle that could be potentially consistent with intramuscular hematoma. The radiologist also made note on the CT scan of her abdomen and pelvis that there is extensive anasarca particularly in the pelvis. However I do not think even if she has an intramuscular hematoma of the right psoas that this wouldbe causing all of her signs and symptoms at this time. . A vitamin B12 and folate level are normal. Today the patient had an MRI of her lumbar and thoracic spine which was unremarkable. The patient does have bruising of her right posterior thigh and left lateral thigh. She also has pitting edema in both legs which is worse on the right than the left. CK is elevated at 3300. She still has hyponatremia and the renal service is giving her albumin today. The differential for her bilateral leg weakness and pain could include one or combination of the followin) Musculoskeletal pain after a fall. 2) Myopathy. 3) Structural disease of her spine and/or brain. 4) Manifestation of a intramuscular psoas hematoma-I do not think this is causing all of her symptoms and signs. 5) Vasculitis. 6) Functional disorder. 7) Structural disease of her legs. 8) Vascular insufficiency. 9) to the lumbar sacral plexus and/or injury to the sacral nerves. 10) Manifestation of bruising and anasarca. At this time I do not know the exact etiology of her bilateral leg weakness and pain and there are multiple potential causes. ?? At this time, I recommend the following: ?? 1) At discharge she should follow-up with an outpatient neurologist not drive until released by physician. 2) Given the possibility of an intramuscular hematoma in the right psoas, to continue weighing the risk and benefits of anticoagulation for her recently discovered right lower extremity DVT. 3) I am going to recommend a trial of Neurontin 300 twice a day to see if this would help with any neuropathic pain. 4) as her CK is elevated at 3300 today, I am going to repeat a CK tomorrow. 5) continue treating underlying medical conditions as you are. 6) I agree with physical therapy. 7) I agree with albumin infusion to see if this will help with anasarca. 8) if she continues having lower extremity weakness eventually consideration could be given to MRIsof her cervical spine and/or imaging studies of her bilateral thighs and/or bilateral calves. 9) I am sending off a T4 and TSH. At this time given her relative immobility and known DVT of her right lower extremity, I feel that the potential benefits of anticoagulation outweigh the risk. Therefore I will continue to and continuing anticoagulation for now. Eventually we may need to change the therapeutic Lovenox to an oral ant icoagulant. I have spent 40 minutes on this case today. Over half that time was spent reviewing the chart, reviewing the films. Plan * Cornelius Mccarty MD - 09/15/2023 5:37 PM EDT Subjective Patient confused Awake No nausea or vomiting No fever Last Recorded Vitals Blood pressure 112/48, pulse 80, temperature 98.1 ??F (36.7 ??C), resp. rate 18, height 1.6 m (5' 3 ), weight 48.5 kg (107 lb), SpO2 100 %. Physical Exam Head atraumatic normocephalic Pupils round and reactive Eyes no conjunctival injection or discharge Ears no discharge Nose no bleeding or discharge Mouth dry Neck supple forage of motion Chest diminished entry bilaterally no wheezes heart S1 and S2 healed regular rate Abdomen soft audible bowel sounds Extremities bilateral extremity edema with right hip discoloration Neurological patient alert awake move extremities Psychiatric anxiety Skin right hip area discoloration Labs: Results for orders placed or performed during the hospital encounter of 09/12/23 (from the past 24 hour(s)) Glucose, Nova Meter Status: None Collection Time: 09/14/23 5:40 PM Result Value Ref Range POC-GLUCOSE 98 70 - 110 mg/dL [employer] [id number] Sodium Status: Abnormal Collection Time: 09/14/23 8:17 PM Result Value Ref Range Sodium 126 (L) 136 - 146 meq/L Glucose, Nova Meter Status: Abnormal Collection Time: 09/15/23 12:05 AM Result Value Ref Range POC-GLUCOSE 129 (H) 70 - 110 mg/dL [employer] [id number] Ammonia Status: Abnormal Collection Time: 09/15/23 2:35 AM Result Value Ref Range Ammonia <10 (L) 11 - 32 ??mol/L Basic Metabolic Panel Status: Abnormal Collection Time: 09/15/23 2:36 AM Result Value Ref Range Sodium 126 (L) 136 - 146 meq/L Potassium 4.1 3.5 - 5.1 meq/L Chloride 91 (L) 102 - 112 meq/L CO2 27 21 - 32 meq/L Anion Gap 12 9 - 20 BUN 19 7 - 22 mg/dL Creatinine 0.82 0.55 - 1.02 mg/dL BUN/Creatinine 23 (H) 8 - 20 Glucose 112 (H) 74 - 106 mg/dL Calcium 8.4 8.4 - 10.1 mg/dL Osmolality Calc 256.4 eGFR (mL/min/1.73m2) >60 >=60 mL/min/1.73m2 CBC - Hemogram (SJ-BKR) Status: Abnormal Collection Time: 09/15/23 2:36 AM Result Value Ref Range WBC 15.7 (H) 4.0 - 10.0 K/??L RBC 3.15 (L) 3.93 - 5.22 M/??L Hemoglobin 9.4 (L) 11.2 - 15.7 GM/DL Hematocrit 26.6 (L) 34.1 - 44.9 % MCV 84 79 - 95 fL MCH 29.8 25.6 - 32.2 pg MCHC 35.3 32.2 - 35.5 GM/DL RDW 13.2 11.7 - 14.4 % Platelets 259 140 - 375 K/CU MM MPV 11.0 9.4 - 12.3 fL Sodium Status: Abnormal Collection Time: 09/15/23 2:36 AM Result Value Ref Range Sodium 126 (L) 136 - 146 meq/L Creatine Kinase (CK) Status: Abnormal Collection Time: 09/15/23 2:36 AM Result Value Ref Range Total CK 3,345 (H) 26 - 192 U/L Glucose, Nova Meter Status: None Collection Time: 09/15/23 5:46 AM Result Value Ref Range POC-GLUCOSE 101 70 - 110 mg/dL [employer] [id number] Sodium Status: Abnormal Collection Time: 09/15/23 8:08 AM Result Value Ref Range Sodium 126 (L) 136 - 146 meq/L Glucose, Nova Meter Status: None Collection Time: 09/15/23 10:36 AM Result Value Ref Range POC-GLUCOSE 107 70 - 110 mg/dL [employer] [id number] Sodium Status: Abnormal Collection Time: 09/15/23 1:25 PM Result Value Ref Range Sodium 124 (L) 136 - 146 meq/L MR thoracic spine without IV contrast, MR spine lumbar without IV contrast Narrative: Name: BIRGIT ESTRADA : 1950 NONINFUSED LUMBAR SPINE MRI HISTORY: Severe hip pain and leg weakness. FINDINGS: On the sagittal images, mild decreased signal is identified throughout the lumbar discs. Vertebrae are of normal height. No malalignment is seen. L1-2: No disc bulge or protrusion. L2-3: No disc bulge or protrusion. L3-4: Mild to moderate diffuse disc bulge is present. Small posterolateral disc protrusions are present. There is mild to moderate bilateral neural foraminal narrowing. Moderate hypertrophic changes are seen at the facet joints bilaterally. L4-5: Mild to moderate diffuse disc bulge is present. Small posterolateral disc protrusions are present. There is mild to moderate bilateral neural foraminal narrowing. Moderate hypertrophic changes are seen at the facet joints bilaterally. L5-S1: No significant disc bulge or protrusion. Impression: 1. Posterolateral disc protrusions L3-4 and L4-5 with bilateral facet hypertrophy. Mild to moderate bilateral neural foraminal compromise. 2. No evidence of acute osseous abnormality. NONINFUSED THORACIC SPINE MRI HISTORY: Back pain. FINDINGS: On the sagittal images, abnormal decreased signal is identified throughout the thoracic discs. Vertebrae are of normal height. No malalignment is seen. Thoracic cord demonstrates normal signal and configuration. On the axial images, there is no evidence of significant disc bulge or protrusion. Incidental note is made of moderate bilateral pleural effusions. IMPRESSION: 1. Diffuse changes of degenerative disc disease, without evidence of significant spinal or neural foraminal compromise. 2. No evidence of acute osseous abnormality. 3. Moderate bilateral pleural effusions. Images reviewed, interpreted, and dictated by Jose Barnes MD Assessment #1 hyponatremia Patient mid to the hospital from nephrology evaluation will check electrolytes start IV fluid CT of chest done with no apparent malignancy ?? 2 pneumonia patient already on IV Zosyn doxycycline breathing treatment oxygen cultures ordered ?? #3 dehydration patient started on IV fluid ?? #4 anxiety restart Xanax as needed ?? #5 hypertension start hydralazine as needed ?? #6 GI prophylaxis Pepcid ?? #7 right hip hematoma will consult Ortho start pain control ? #8 DVT prophylaxis 09/15/2023 Plan Altered mental status/acute encephalopathy Consult neurology Improving Lower extremity deep vein thrombosis Will start heparin drip Sodium improving CAT scan palliative care Patient will need placement when medically stable Discharge Planning: Patient not medically stable to be discharge Will consult case management patient will need rehab * Ashely Rolon LCSW - 09/15/2023 1:14 PM EDTSummary: Progress Social Work Progress Note Cm spoke to [place] with the [facility]. She will chek with facility to see if patient can admit tomorrow. [facility] case [facility] can admit tomorrow. Inderjit will continue to follow. Ashely Rolon LCSW * Lucinda Sparks PA-C - 09/15/2023 12:24 PM EDTSummary: Vascular [facility] VASCULAR SURGERY PROGRESS NOTE Subjective Birgit Estrada is a 73 y.o. female who is alert and lying in bed with family at bedside. She deniesany new concerns or acute events overnight. She is still having difficulty moving her RIGHT leg. Objective Last Recorded Vitals Blood pressure 139/68, pulse 72, temperature 97.7 ??F (36.5 ??C), resp. rate 18, height 1.6 m (5' 3 ), weight 48.5 kg (107 lb), SpO2 100 %. Physical Exam AAOx3, NAD, family at bedside Respiratory: normal effort, on supplemental O2 via NC Abdomen: soft, non-tender RIGHT LE: ecchymosis extending along the lateral aspect of the leg, warm to touch, edema present inthe foot, palpable pedal pulses, limited motor function due to pain Labs: Results for orders placed or performed during the hospital encounter of 09/12/23 (from the past 24 hour(s)) Sodium Status: Abnormal Collection Time: 09/14/23 1:25 PM Result Value Ref Range Sodium 126 (L) 136 - 146 meq/L Sodium Status: Abnormal Collection Time: 09/14/23 4:47 PM Result Value Ref Range Sodium 125 (L) 136 - 146 meq/L Glucose, Nova Meter Status: None Collection Time: 09/14/23 5:40 PM Result Value Ref Range POC-GLUCOSE 98 70 - 110 mg/dL [employer] [id number] Sodium Status: Abnormal Collection Time: 09/14/23 8:17 PM Result Value Ref Range Sodium 126 (L) 136 - 146 meq/L Glucose, Nova Meter Status: Abnormal Collection Time: 09/15/23 12:05 AM Result Value Ref Range POC-GLUCOSE 129 (H) 70 - 110 mg/dL [employer]er [id number] Ammonia Status: Abnormal Collection Time: 09/15/23 2:35 AM Result Value Ref Range Ammonia <10 (L) 11 - 32 ??mol/L Basic Metabolic Panel Status: Abnormal Collection Time: 09/15/23 2:36 AM Result Value Ref Range Sodium 126 (L) 136 - 146 meq/L Potassium 4.1 3.5 - 5.1 meq/L Chloride 91 (L) 102 - 112 meq/L CO2 27 21 - 32 meq/L Anion Gap 12 9 - 20 BUN 19 7 - 22 mg/dL Creatinine 0.82 0.55 - 1.02 mg/dL BUN/Creatinine 23 (H) 8 - 20 Glucose 112 (H) 74 - 106 mg/dL Calcium 8.4 8.4 - 10.1 mg/dL Osmolality Calc 256.4 eGFR (mL/min/1.73m2) >60 >=60 mL/min/1.73m2 CBC - Hemogram (SJ-BKR) Status: Abnormal Collection Time: 09/15/23 2:36 AM Result Value Ref Range WBC 15.7 (H) 4.0 - 10.0 K/??L RBC 3.15 (L) 3.93 - 5.22 M/??L Hemoglobin 9.4 (L) 11.2 - 15.7 GM/DL Hematocrit 26.6 (L) 34.1 - 44.9 % MCV 84 79 - 95 fL MCH 29.8 25.6 - 32.2 pg MCHC 35.3 32.2 - 35.5 GM/DL RDW 13.2 11.7 - 14.4 % Platelets 259 140 - 375 K/CU MM MPV 11.0 9.4 - 12.3 fL Sodium Status: Abnormal Collection Time: 09/15/23 2:36 AM Result Value Ref Range Sodium 126 (L) 136 - 146 meq/L Creatine Kinase (CK) Status: Abnormal Collection Time: 09/15/23 2:36 AM Result Value Ref Range Total CK 3,345 (H) 26 - 192 U/L Glucose, Nova Meter Status: None Collection Time: 09/15/23 5:46 AM Result Value Ref Range POC-GLUCOSE 101 70 - 110 mg/dL [employer]er [id number] Sodium Status: Abnormal Collection Time: 09/15/23 8:08 AM Result Value Ref Range Sodium 126 (L) 136 - 146 meq/L Glucose, Nova Meter Status: None Collection Time: 09/15/23 10:36 AM Result Value Ref Range POC-GLUCOSE 107 70 - 110 mg/dL [employer]er [id number] CT ABDOMEN/PELVIS WITHOUT IV CONTRAST Standard Protocol Narrative: CT SCAN OF THE ABDOMEN AND PELVIS WITHOUT CONTRAST 09/14/2023 9:24 AM HISTORY: Epigastric pain COMPARISON: None. PROCEDURE: Axial images were obtained from the lung bases to the pubic symphysis by computed tomography. This study was performed with techniques to keep radiation doses as low as reasonably achievable, (ALARA). Individualized dose reduction techniques using automated exposure control or adjustment of mA and/or kV according to the patient size were employed. FINDINGS: ABDOMEN: There is a small right and moderate left pleural effusion. There is bibasilar consolidation. Post cholecystectomy. There is no hydronephrosis or nephrolithiasis. There is extensive anasarca. There is no significant free fluid or adenopathy. The solid organs are otherwise unremarkable. PELVIS: There is extensive anasarca. There is mild ascites. The urinary bladder is unremarkable. The appendix is normal. The right psoas muscle is mildly enlarged. There is increased density within the right psoas musculature consistent with intramuscular hematoma. Impression: Pleural effusions and bibasilar consolidation. Follow up to resolution recommended. Extensive anasarca but particularly in the pelvis. Mild ascites of uncertain etiology. Mild enlargement and heterogeneity in the lower right psoas muscle consistent with intramuscular hematoma. Images reviewed, interpreted, and dictated by Jairo Acosta MD Assessment Right Lower Extremity DVT - Venous duplex demonstrated deep vein thrombosis in the right peroneal and soleal veins - labs reviewed: WBC 15.7, Hgb 9.4, Cr 0.82 - CT revealed RT psoas intramuscular hematoma ?? Plan - pain control prn - compression and elevation to right lower extremity, jamey hose ordered - Discussed plan of care with Dr. Wakefield and plans to continue Lovenox 1mg/kg. Can transition to OAC upon discharge - Ortho consulted, no evidence of fracture - PT/OT as tolerated - medical management per primary - No vascular surgery intervention warranted - FU in outpatient vascular office with Dr. Cadet in 3 months with RLE venous duplex Cosigned by Junior Helio MD at 09/23/2023 7:50 AM EDT * Haven Mooney MD - 09/15/2023 10:50 AM EDT Subjective: Seen and examined at bedside. No acute events overnight. No new complain No CP, SOA, N/V, fever, chills or rash Objective: Blood pressure 139/68, pulse 72, temperature 97.7 ??F (36.5 ??C), resp. rate 18, height 1.6 m (5' 3 ), weight 48.5 kg (107 lb), SpO2 100 %. No intake or output data in the 24 hours ending 09/15/23 1050 No intake/output data recorded. Physical Exam: GEN: NAD Neuro: AAO no focal deficits seen Psychiatric: Normal mood and affect. Cooperative with exam Eyes: Nonicteric, pupils equal, no conjunctivitis ENT: OMM moist, no lesion seen Neck: No JVD discernible, trachea appears midline Cardiovascular: Regular rate, + edema Respiratory: Quiet respirations, symmetrical chest expansion Abdomen: NTTP Nondistended : No Red catheter, no palp bladder Skin: No rash or lesions Labs: Recent Labs Lab(s) Units 09/15/23 0236 09/14/23 0248 09/13/23 0148 WBC K/??L 15.7* 13.4* 15.2* HGB GM/DL 9.4* 7.9* 9.1* PLT K/CU MM 259 180 205 Recent Labs Lab(s) Units 09/15/23 0808 09/15/23 0236 09/14/23 2017 09/14/23 1647 09/14/23 1325 09/14/23 0249 09/13/23 2314 09/13/23 1234 09/13/23 0148 09/12/23 1808 NA meq/L 126* 126* 126* 126* 125* < > 124* < > 125* 124* 122* 121* K meq/L -- 4.1 -- -- -- 4.1 -- 4.2 4.4 4.4 CL meq/L -- 91* -- -- -- 94* -- 91* 90* 88* CO2 meq/L -- 27 -- -- -- 24 -- 28 26 27 BUN mg/dL -- 19 -- -- -- 22 -- 24* 26* 30* CREATININE mg/dL -- 0.82 -- -- -- 0.80 -- 0.94 0.87 1.03* CALCIUM mg/dL -- 8.4 -- -- -- 8.0* -- 8.4 8.0* 8.2* ALBUMIN g/dL -- -- -- -- -- 2.3* -- -- -- 2.9* < > = values in this interval not displayed. A/P: 1- Hyponatremia- Asymptomatic - 119 at presentation at OSH. 121 at [facility].-Urine osmolarity 892, urinesodium less than 15, serum osmolarity 261. At home on HCTZ - improving. 2- Hypertension 3- Right hip hematoma 4- Right lower extremity DVT. 5- Anemia 6- Elevated liver enzymes ?? Plan: - Fluid restriction - Serial sodium monitoring. - May need 3% saline infusion if further drop in sodium below 120. Haven Mooney MD 09/15/23 2:31 PM * Sim Cole MD - 09/15/2023 8:56 AM EDT Images from the original note were not included. [facility] INFECTIOUS DISEASE PROGRESS NOTE Birgit Estrada 1950 [id number] Date of consult: 09/13/2023 Admit date: 09/12/2023 Requesting Provider: @[email or web address] [facility] physician: Sim Cole MD Reason for Consultation: Acute bacterial cystitis Chief Complaint: Above Subjective History of present illness: Patient is a 73 y.o. Yr old female who is a poor historian with a history of essential hypertension, DJD, fell around 09/05/2023, sustaining increasing right hip pain, and was evaluated at an outside hospital and shown to have severe hyponatremia which was not improving. Patient also had a chest x-ray with possible opacity, with a normal CT scan negative for malignancy. CT scan of the head was unremarkable. Patient was transferred and admitted to [facility] on 09/12/2023. Urinalysis had significant pyuria at 11-20 WBCs but minimal symptoms. Right hip had noted hematoma likely relatedto her previous fall. Chest x-ray at [facility] was unremarkable. The patient was placedon piperacillin/tazobactam and doxycycline on 09/11. Duplex ultrasound was significant for right lower leg DVT in the peroneal and soleus veins. I was consulted on 09/13/2023 for further evaluation and treatment. No reported history of ill contacts, zoonotic exposures, TB, HIV, significant travel, immunocompromised state. 09/14/23 history reviewed. Difficulty with moving her right foot. Slightly confused. No high fever. Tolerating antibiotics. 09/15/23 history reviewed. Feels better. Slightly less confused. Tolerating antibiotics. No high fever. Past Medical History: Diagnosis Date ??? Arthritis ??? Hypertension Past Surgical History: Procedure Laterality Date ??? CHOLECYSTECTOMY ??? TONSILLECTOMY ??? TUBAL LIGATION Pediatric History Patient Parents ??? Not on file Other Topics Concern ??? Not on file Social History Narrative ??? Not on file Negative for cigarettes, alcohol, or drug use family history is not on file. Reviewed and unremarkable No Known Allergies Immunization History Administered Date(s) Administered ??? COVID-19 2022- VACCINE MODERNA (SPIKEVAX) 12 YRS + ([id number]) 05/18/2023 ? ? COVID-19 VACCINE MRNA (MODERNA/BIVALENT)(DARK BLUE CAP W/DOAN)([id number] & [id number]) 03/10/2022 ??? Covid-19 Vaccine MRNA (PF) 18yr+ (Moderna)([id number]) 07/18/2020, 08/15/2020, 02/27/2021, 11/04/2021 Medication: @Scheduled Meds: ??? cefTRIAXone 2 g Intravenous Q24H IVPB Stopped at 09/14/23 1329 ??? doxycycline 100 mg Intravenous Q12H 100 mg at 09/15/23 08 ??? enoxaparin 50 mg Subcutaneous Q12H 50 mg at 09/15/23 08 ??? famotidine 20 mg Oral BID 20 mg at 09/15/23 08 ??? polyethylene glycol 3350 17 g Oral Daily 17 g at 09/15/23 0829 ??? senna-docusate 1 tablet Oral Every Night 1 tablet at 09/14/23 2222 Continuous Infusions: PRN Meds:. ??? acetaminophen ??? ALPRAZolam ??? cloNIDine HCL ??? cyclobenzaprine ??? docusate sodium ??? hydrALAZINE ??? ipratropium-albuteroL ??? melatonin ??? morphine ??? ondansetron Or ??? ondansetron PF ??? oxyCODONE ??? polyethylene glycol 3350 ??? sodium chloride 0.9% (NS) Please refer to the medical record for a full medication list Review of Systems: Constitutional-- No Fever, chills or sweats. Appetite fair, and no malaise. No fatigue. HEENT-- No new vision, hearing or throat complaints. No epistaxis or oral sores. Denies odynophagiaor dysphagia. No odynophagia or dysphagia. No headache, photophobia or neck stiffness. CV-- No chest pain, palpitation or syncope Resp-- No SOB/cough/Hemoptysis GI- No nausea, vomiting, or diarrhea. No hematochezia, melena, or hematemesis. Denies jaundice or chronic liver disease. -- No dysuria, hematuria, or flank pain. Denies hesitancy, urgency. Occasional frequency. Lymph- no swollen lymph nodes in neck/axilla or groin. Heme- No active bruising or bleeding; no Hx of DVT or PE. MS-- no swelling or pain in the bones or joints of arms/legs, except right hip as per HPI. No new back pain. Neuro-- No acute focal weakness or numbness in the arms or legs. No seizures. Except right foot with some foot drop. Skin--No rashes or lesions Physical Exam: Vital Signs Temp: [97 ??F (36.1 ??C)-99 ??F (37.2 ??C)] 97.9 ??F (36.6 ??C) Pulse: [40-81] 75 Resp: [18] 18 BP: (106-181)/(46-77) 157/77 Blood pressure (!) 157/77, pulse 75, temperature 97.9 ??F (36.6 ??C), resp. rate 18, height 1.6 m (5' 3 ), weight 48.5 kg (107 lb), SpO2 100 %. GENERAL: Awake and alert, in moderate distress. Appears older than stated age. Resting in bed. Disheveled. HEENT: Normocephalic, atraumatic. Oropharynx without thrush. Dentition in fair repair. No cervical adenopathy. No neck masses. Ears externally normal, Nose externally normal. Trachea midline. EYES: No conjunctival injection. No icterus. EOM full. LYMPHATICS: No lymphadenopathy of the neck or axillary or inguinal regions. HEART: No murmur, gallop, or pericardial friction rub. Reg rate rhythm, No JVD at 45 degrees. LUNGS: Clear to auscultation and percussion. No respiratory distress, no use of accessory muscles. No rales or rhonchi. No wheezes. ABDOMEN: Soft, nontender, nondistended. No appreciable HSM. Bowel sounds normal. SKIN: Warm and dry without cutaneous eruptions. No nodules. Right hip hematoma noted. No surrounding crepitus or bullae. PSYCHIATRIC: Mental status lucid. No confusion. EXT: No cellulitic change. Normal ROM. NEURO: Oriented to name, right foot drop Results Review: I reviewed the patient's new clinical results. Recent Labs Lab(s) Units 09/15/23 0236 09/14/23 0248 09/13/23 0148 WBC K/??L 15.7* 13.4* 15.2* HGB GM/DL 9.4* 7.9* 9.1* HCT % 26.6* 22.4* 24.6* PLT K/CU MM 259 180 205 Recent Labs Lab(s) Units 09/15/23 0808 09/15/23 0546 09/15/23 0236 NA meq/L 126* -- 126* 126* K meq/L -- -- 4.1 CL meq/L -- -- 91* CO2 meq/L -- -- 27 BUN mg/dL -- -- 19 CREATININE mg/dL -- -- 0.82 GLUCOSE mg/dL -- 101 112* CALCIUM mg/dL -- -- 8.4 Recent Labs Lab(s) Units 09/14/23 0249 ALKPHOS U/L 36 BILITOT mg/dL 0.9 ALT U/L 213* AST U/L 308* No results for input(s): SEDRATE in the last 168 hours. No results for input(s): CRP in the last 168 hours. No results for input(s): VANCOTROUGH , VANCORANDOM in the last 168 hours. No results for input(s): LACTATE in the last 168 hours. Estimated Creatinine Clearance: 38.4 mL/min (by C-G formula based on SCr of 0.82 mg/dL). @LABRCNTIP (cpk,ast,alt,alkaline phosphatase)@ Microbiology: Microbiology Results (last 7 days) Procedure Component Value Units Date/Time Blood Culture Forearm, Left [[id number]] Collected: 09/12/23 1814 Order Status: Completed Specimen: Blood from Forearm, Left Updated: 09/15/23 010 Result No growth in 48 hours Blood Culture Antecubital, Right [[id number]] Collected: 09/12/23 1806 Order Status: Completed Specimen: Blood from Antecubital, Right Updated: 09/15/23 0101 Result No growth in 48 hours Urine Culture [[id number]] Collected: 09/12/23 2210 Order Status: Completed Specimen: Urine, Clean Catch Updated: 09/14/23 0735 Result No growth Radiology: Radiology Results (last 3 days) Procedure Component Value Units Date/Time CT ABDOMEN/PELVIS WITHOUT IV CONTRAST Standard Protocol [[id number]] Collected: 09/14/23 1051 Order Status: Completed Updated: 09/14/23 1129 Narrative: CT SCAN OF THE ABDOMEN AND PELVIS WITHOUT CONTRAST 09/14/2023 9:24 AM HISTORY: Epigastric pain COMPARISON: None. PROCEDURE: Axial images were obtained from the lung bases to the pubic symphysis by computed tomography. This study was performed with techniques to keep radiation doses as low as reasonably achievable, (ALARA). Individualized dose reduction techniques using automated exposure control or adjustment of mA and/or kV according to the patient size were employed. FINDINGS: ABDOMEN: There is a small right and moderate left pleural effusion. There is bibasilar consolidation. Post cholecystectomy. There is no hydronephrosis or nephrolithiasis. There is extensive anasarca. There is no significant free fluid or adenopathy. The solid organs are otherwise unremarkable. PELVIS: There is extensive anasarca. There is mild ascites. The urinary bladder is unremarkable. The appendix is normal. The right psoas muscle is mildly enlarged. There is increased density within the right psoas musculature consistent with intramuscular hematoma. Impression: Pleural effusions and bibasilar consolidation. Follow up to resolution recommended. Extensive anasarca but particularly in the pelvis. Mild ascites of uncertain etiology. Mild enlargement and heterogeneity in the lower right psoas muscle consistent with intramuscular hematoma. Images reviewed, interpreted, and dictated by Jairo Acosta MD CT brain without IV contrast [[id number]] Collected: 09/13/23 1126 Order Status: Completed Updated: 09/13/23 1130 Narrative: HEAD CT 09/13/2023 10:47 AM HISTORY: Acute headache. COMPARISON: None. TECHNIQUE: Multiple axial CT images were performed from the foramen magnum to the vertex. This study was performed with techniques to keep radiation doses as low as reasonably achievable, (ALARA). Individualized dose reduction techniques using automated exposure control or adjustment of mA and/or kV according to the patient size were employed. FINDINGS: The ventricles are normal in size. There is no evidence of hemorrhage. No masses are identified. No extra-axial fluid is seen. The sinuses demonstrate right sphenoid opacification. Impression: No acute intracranial process. Images reviewed, interpreted, and dictated by Jairo Acosta MD US DOPPLER VENOUS LEGS BILATERAL [[id number]] Collected: 09/13/23 0752 Order Status: Completed Updated: 09/13/23 1046 Narrative: Vascular Lower Extremities DVT Study Procedure Demographics Patient Name SEAN REILLY Age 73 Patient Number [id number] Gender Female Race Unknown Ethnicity Corporate ID [id number] Height 63 Date of 1950 Weight 107 Accession Number [id number] BSA 1.48 m^2 Room Number [id number] BMI 18.95 kg/m^2 Referring CORNELIUS MCCARTY MD Interpreting [facility] Physician Physician Metal Molder Monse Gonsalez RVT Procedure Type of Study: Veins: Venous Duplex, Venous Duplex Legs, Lower Extremities DVT Study, US DOPPLER VENOUS LEGS BILATERAL. Impressions Summary INDICATION: BILATERAL LE SWELLING (R22.43) ################################ RIGHT: ##Abnormal venous duplex study, deep vein thrombosis identified in the peroneal vein and soleal vein .## Thrombus appears acute in age. No evidence of a superficial venous thrombosis. LEFT: No evidence of deep venous thrombosis (DVT) or superficial venous thrombosis. ################################ Patient Status:Inpatient . Study Location:Portable. Technical Quality:Technically difficult study due to patient's positioning. Velocities are measured in cm/s ; Diameters are measured in mm Right Lower Extremities DVT Study Measurements Right 2D Measurements + + + + + !Location !Visualized !Compressibility !Thrombosis ! + + + + + !GSV Thigh !Yes !Yes !None ! + + + + + !Common Femoral !Yes !Yes !None ! + + + + + !Deep Femoral !Yes !Yes !None ! + + + + + !Prox Femoral !Yes !Yes !None ! + + + + + !Mid Femoral !Yes !Yes !None ! + + + + + !Dist Femoral !Yes !Yes !None ! + + + + + !Popliteal !Yes !Yes !None ! + + + + + !PTV !Yes !Yes !None ! + + + + + !Peroneal !Yes !No !Yes ! + + + + + Right Doppler Measurements + + +------+ + !Location !Signal !Reflux!Reflux (sec) ! + + +------+ + !Common Femoral !Spontaneous Phasic ! ! ! + + +------+ + !Prox Femoral !Spontaneous Phasic ! ! ! + + +------+ + !Deep Femoral !Spontaneous Phasic ! ! ! + + +------+ + !Popliteal !Spontaneous Phasic ! ! ! + + +------+ + Left Lower Extremities DVT Study Measurements Left 2D Measurements + + + + + !Location !Visualized !Compressibility !Thrombosis ! + + + + + !GSV Thigh !Yes !Yes !None ! + + + + + !Common Femoral !Yes !Yes !None ! + + + + + !Deep Femoral !Yes !Yes !None ! + + + + + !Prox Femoral !Yes !Yes !None ! + + + + + !Mid Femoral !Yes !Yes !None ! + + + + + !Dist Femoral !Yes !Yes !None ! + + + + + !Popliteal !Yes !Yes !None ! + + + + + !PTV !Yes !Yes !None ! + + + + + !Peroneal !Yes !Yes !None ! + + + + + Left Doppler Measurements + + +------+ + !Location !Signal !Reflux!Reflux (sec) ! + + +------+ + !Common Femoral !Spontaneous Phasic ! ! ! + + +------+ + !Prox Femoral !Spontaneous Phasic ! ! ! + + +------+ + !Deep Femoral !Spontaneous Phasic ! ! ! + + +------+ + !Popliteal !Spontaneous Phasic ! ! ! + + +------+ + Findings Right Findings Thrombus identified in the peroneal vein (deep venous thrombosis) . Thrombus identified in the soleal vein (deep venous thrombosis) . Thrombus appears to be acute in age. No evidence of a superficial venous thrombosis. Normal response to augmentation in the supine position. Left Findings No evidence of a deep venous thrombosis (DVT). No evidence of a superficial venous thrombosis. Normal response to augmentation in the supine position. Signature XR chest AP portable [[id number]] Collected: 09/13/23800 Order Status: Completed Updated: 09/13/23913 Narrative: PORTABLE CHEST. 09/12/2023 6:19 PM HISTORY: Shortness of breath. COMPARISON: None. FINDINGS: The cardiac silhouette is normal in size. The mediastinum is unremarkable. The lungs are clear. There is no pneumothorax. Impression: No acute cardiopulmonary process. PELVIS, ONE VIEW HISTORY: Hematoma of the right hip, arthritis. COMPARISON: None. FINDINGS: A single AP view of the pelvis exam demonstrates no acute fracture or dislocation. The joint spaces appear unremarkable. No soft tissue abnormality is seen. IMPRESSION: No acute bony abnormality. Images reviewed, interpreted, and dictated by Dr. Jose Barnes. Transcribed by Jane Stephens PA-C. XR pelvis 1 or 2 views [[id number]] Collected: 09/13/23800 Order Status: Completed Updated: 09/13/23913 Narrative: PORTABLE CHEST. 09/12/2023 6:19 PM HISTORY: Shortness of breath. COMPARISON: None. FINDINGS: The cardiac silhouette is normal in size. The mediastinum is unremarkable. The lungs are clear. There is no pneumothorax. Impression: No acute cardiopulmonary process. PELVIS, ONE VIEW HISTORY: Hematoma of the right hip, arthritis. COMPARISON: None. FINDINGS: A single AP view of the pelvis exam demonstrates no acute fracture or dislocation. The joint spaces appear unremarkable. No soft tissue abnormality is seen. IMPRESSION: No acute bony abnormality. Images reviewed, interpreted, and dictated by Dr. Jose Barnes. Transcribed by Jane Stephens PA-C. . IMPRESSION: 1. Pyuria with possible acute bacterial cystitis. Urine culture from 09/11 negative. Partially treated. 2. Right hip hematoma after fall 09/05/2023. X-ray without fracture. 3. Reported chest x-ray infiltrate resolved. Could have had atelectasis, and is at risk for pulmonary embolus given demonstration of new DVT. 4. DVT right lower leg soleus and peroneal veins positive duplex 09/13/2023. 5. Leukocytosis, neutrophilic related to above issues. Worse. May be related to cystitis versus other. Blood cultures x 2 from 09/11 negative. 6. Hyponatremia related to above issues, medications, possible SIADH, versus other. 126, ongoing. 7. Anemia, related to above issues and right hip hematoma. Worse. 8. Hypocalcemia 8.0. 9. Elevated transaminase with ALT 213, worse, AST 308, worse, total bilirubin 0.9, alkaline phosphatase 45. Reportedly CT scan abdomen and pelvis at outside hospital without significant pathology. May need to repeat ultrasound versus other. PLAN: 1. Diagnostically, continue to follow patient's physical exam, CBC, CMP, CRP, cultures which have been obtained. 2. Therapeutically, continue doxycycline and ceftriaxone pending further culture data. Duration to be determined but likely to be until 09/19 and reassess. 3. Supportive care. Room air on 09/13/2023. Orthopedics, nephrology, neurology evaluating. I discussed the patient's findings and my recommendations with the patient and nursing. Thank you for asking me to see Birgit Estrada. Our group would be pleased to follow this patient over the course of their hospitalization and assist with outpatient antimicrobial therapy, as indicated. Further recommendations depend on the results of the cultures and clinical course. Increased riskfor adverse drug reactions, complications of IV access, need for surgery, readmission. I discussed with the patient's son. Sim Cole MD 09/15/2023 * Nathaniel Wakefield MD - 09/14/2023 4:25 PM EDT Subjective Since I met the patient yesterday the following has happened: 1) the patient tells me that she is having a lot of pain around both hips but today she mentions that the pain around her left hip is worse than her right hip. Physical therapy came by to see her butelected not to try to stand her up given her history of a DVT. 2) patient had a CT scan of her abdomen and pelvis ordered to look for retroperitoneal hematoma. I will discuss this report later. 3) I had a chance to speak to the patient's son to get more history. Patient's son tells me that the patient's has Lewy body disease that was diagnosed about 2 years ago and the patient's has to spend a lot of time helping him. Apparently she was trying to help him get dressed for bed on September 04 when she fell down on her hips. She was able to get back up and went to bed but a couple hours later she started complaining of hip pain. The hip pain was so bad that on September 05 the family took her to the emergency room at [facility] where she was released after having several x-rays. Son tells me the patient was walking at that time. However she continued to have bilateral hip pain but was still able to walk and on September 07 she was taken back to [facility] for the bilateral hip pain and she was found to have a low sodium level. And was admitted. The son estimates that the patient was still able to walk with a walker while she was hospitalized from September 07 at [facility]. However on September 10 he noticed that she was staying in bed and she stayed in bed ever since. Current Facility-Administered Medications: ??? acetaminophen (TYLENOL) tablet 650 mg, 650 mg, Oral, Q6H PRN ??? ALPRAZolam (XANAX) tablet 0.5 mg, 0.5 mg, Oral, Q4H PRN ??? cefTRIAXone (ROCEPHIN) 2 g in sodium chloride 0.9 % (NS) MBP 50 mL IVPB, 2 g, Intravenous, Q24H ??? cloNIDine HCL (CATAPRES) tablet 0.1 mg, 0.1 mg, Oral, Q8H PRN ??? cyclobenzaprine (FLEXERIL) tablet 10 mg, 10 mg, Oral, TID PRN ??? docusate sodium (COLACE) capsule 100 mg, 100 mg, Oral, BID PRN ??? doxycycline (VIBRAMYCIN) 100 mg in sodium chloride 0.9 % (NS) MBP 100 mL IVPB, 100 mg, Intravenous, Q12H ??? enoxaparin (LOVENOX) syringe 50 mg, 1 mg/kg, Subcutaneous, Q12H ??? famotidine (PEPCID) tablet 20 mg, 20 mg, Oral, BID ??? hydrALAZINE (APRESOLINE) injection 10 mg, 10 mg, Intravenous, Q4H PRN ??? ipratropium-albuteroL (DUO-NEB) 0.5-2.5 (3) mg/3 mL nebulizer solution 3 mL, 3 mL, Nebulization, Q4H PRN ??? melatonin tablet 6 mg, 6 mg, Oral, Every Night PRN ??? morphine injection 2 mg, 2 mg, Intravenous, Q4H PRN ??? ondansetron (ZOFRAN-ODT) disintegrating tablet 4 mg, 4 mg, Oral, Q8H PRN OR ondansetron PF (ZOFRAN) injection 4 mg, 4 mg, Intravenous, Q8H PRN ??? oxyCODONE (ROXICODONE) immediate release tablet 5 mg, 5 mg, Oral, Q4H PRN ??? polyethylene glycol (GLYCOLAX) packet 17 g, 17 g, Oral, Daily PRN ??? polyethylene glycol (GLYCOLAX) packet 17 g, 17 g, Oral, Daily ??? senna-docusate (SENOKOT S) tablet 8.6-50 mg, 1 tablet, Oral, Every Night ??? Insert Peripheral IV, , , Once AND Saline Lock IV, , , Once AND sodium chloride 0.9% (NS) flush 10 mL, 10 mL, Intravenous, PRN Review of Systems Cardiac-the patient does have a history of hypertension. Objective Last Recorded Vitals Blood pressure (!) 173/75, pulse 79, temperature 97.9 ??F (36.6 ??C), resp. rate 18, height 1.6 m (5' 3 ), weight 48.5 kg (107 lb), SpO2 98 %. Physical Exam Patient is in a mod amount of pain in both hips. She is unable to raise either leg off the bed. Shecan barely bend her left knee but does not bend her right knee. She does not dorsiflex or plantarflex her right foot but does so on her left foot. Her reflexes are absent throughout she has normal strength in her arms. Labs: Results for orders placed or performed during the hospital encounter of 09/12/23 (from the past 24 hour(s)) Glucose, Nova Meter Status: None Collection Time: 09/13/23 5:02 PM Result Value Ref Range POC-GLUCOSE 108 70 - 110 mg/dL Rotating [employer] As[employer]er [id number] Sodium Status: Abnormal Collection Time: 09/13/23 11:14 PM Result Value Ref Range Sodium 125 (L) 136 - 146 meq/L CBC w Manual Diff (SJ-BKR) Status: Abnormal Collection Time: 09/14/23 2:48 AM Result Value Ref Range WBC 13.4 (H) 4.0 - 10.0 K/??L RBC 2.69 (L) 3.93 - 5.22 M/??L Hemoglobin 7.9 (L) 11.2 - 15.7 GM/DL Hematocrit 22.4 (L) 34.1 - 44.9 % MCV 83 79 - 95 fL MCH 29.4 25.6 - 32.2 pg MCHC 35.3 32.2 - 35.5 GM/DL RDW 12.8 11.7 - 14.4 % Platelets 180 140 - 375 K/CU MM MPV 11.0 9.4 - 12.3 fL Lactic acid (SJ) Status: Normal Collection Time: 09/14/23 2:48 AM Result Value Ref Range Lactic Acid Level (mmol/L) 0.9 0.4 - 2.0 mmol/L Manual Differential Status: Abnormal Collection Time: 09/14/23 2:48 AM Result Value Ref Range Total Counted 100 % Neutros (manual) 84 (H) 50 - 65 % % Lymphs (manual) 12 (L) 24 - 44 % % Monos (manual) 4 4 - 5 % Platelet Estimate Adequate Adequate ANC# 11.26 K/??L Comprehensive metabolic panel Status: Abnormal Collection Time: 09/14/23 2:49 AM Result Value Ref Range Sodium 124 (L) 136 - 146 meq/L Potassium 4.1 3.5 - 5.1 meq/L Chloride 94 (L) 102 - 112 meq/L CO2 24 21 - 32 meq/L Calcium 8.0 (L) 8.4 - 10.1 mg/dL Glucose 103 74 - 106 mg/dL BUN 22 7 - 22 mg/dL Creatinine 0.80 0.55 - 1.02 mg/dL BUN/Creatinine 28 (H) 8 - 20 Albumin 2.3 (L) 3.4 - 5.0 g/dL Alkaline Phosphatase 36 27 - 136 U/L ALT 213 (H) 13 - 56 U/L AST 308 (H) 5 - 37 U/L Total Bilirubin 0.9 0.2 - 1.2 mg/dL Protein, Total 4.5 (L) 6.4 - 8.2 gm/dL Anion Gap 10 9 - 20 A/G Ratio 1.0 (L) 1.1 - 2.5 Globulin 2.2 1.5 - 4.5 g/dL Osmolality Calc 253.2 eGFR (mL/min/1.73m2) >60 >=60 mL/min/1.73m2 Vitamin B12 Status: Normal Collection Time: 09/14/23 2:49 AM Result Value Ref Range Vitamin B12 560 193 - 986 pg/mL Folate, Serum Status: Normal Collection Time: 09/14/23 2:49 AM Result Value Ref Range Folate 14.60 3.10 - 17.50 ng/mL Glucose, Nova Meter Status: None Collection Time: 09/14/23 11:36 AM Result Value Ref Range POC-GLUCOSE 103 70 - 110 mg/dL [employer]ating [employer] As[employer]er [id number] Sodium Status: Abnormal Collection Time: 09/14/23 1:25 PM Result Value Ref Range Sodium 126 (L) 136 - 146 meq/L CT ABDOMEN/PELVIS WITHOUT IV CONTRAST Standard Protocol Narrative: CT SCAN OF THE ABDOMEN AND PELVIS WITHOUT CONTRAST 09/14/2023 9:24 AM HISTORY: Epigastric pain COMPARISON: None. PROCEDURE: Axial images were obtained from the lung bases to the pubic symphysis by computed tomography. This study was performed with techniques to keep radiation doses as low as reasonably achievable, (ALARA). Individualized dose reduction techniques using automated exposure control or adjustment of mA and/or kV according to the patient size were employed. FINDINGS: ABDOMEN: There is a small right and moderate left pleural effusion. There is bibasilar consolidation. Post cholecystectomy. There is no hydronephrosis or nephrolithiasis. There is extensive anasarca. There is no significant free fluid or adenopathy. The solid organs are otherwise unremarkable. PELVIS: There is extensive anasarca. There is mild ascites. The urinary bladder is unremarkable. The appendix is normal. The right psoas muscle is mildly enlarged. There is increased density within the right psoas musculature consistent with intramuscular hematoma. Impression: Pleural effusions and bibasilar consolidation. Follow up to resolution recommended. Extensive anasarca but particularly in the pelvis. Mild ascites of uncertain etiology. Mild enlargement and heterogeneity in the lower right psoas muscle consistent with intramuscular hematoma. Images reviewed, interpreted, and dictated by A. Eldon Acosta MD Have reviewed this film. I have also reviewed with radiologist. The patient does have some mild enlargement of the right psoas muscle which could be consistent with an intramuscular hematoma. Howeverthis is a relatively subtle finding. Vitamin B12 and folate level are normal. Assessment Birgit Estrdaa is a 73-year-old female with hypertension and depression who was transferred to our hospital on September 11 from the inpatient service at [facility] after she fell and was found to have hyponatremia . ?? She has been placed on anticoagulation on September 12 for right lower extremity DVT. In talking with the son, the patient fell down on September 04 at home while trying to help her (who has Lewy body disease) change closed. A couple hours after falling she complained of hip pain [facility]. Over the next 2 days the patient continued to have severe hip pain but was able to walk in on was admitted to [facility] for hip pain and hyponatremia. According to the son for the first few days at [facility] the patient was walking with a walker but then he noticed that thepatient was staying in bed on September 10 and the patient has been complaining of severe hip pain and leg weakness since that time. ?? I was asked to see her for confusion and right leg weakness on September 12. Head CT shows no acute changes. She is on Lovenox as of September 12 for right lower extremity DVT. Specifically an ultrasound of her right lower extremity suggest a DVT in the peroneal vein and soleal vein. Exam she has weakness in both legs but she is weaker in the right leg than the left leg. I did a CTscan of her abdomen pelvis today which suggest some slight enlargement of the distal right psoas muscle that could be potentially consistent with intramuscular hematoma. However I do not think even if she has an intramuscular hematoma of the right psoas that this wouldbe causing all of her signs and symptoms at this time. . A vitamin B12 and folate level are normal. The differential for her bilateral leg weakness and pain could include one or combination of the followin) Musculoskeletal pain after a fall. 2) Myopathy. 3) Structural disease of her spine and/or brain. 4) Manifestation of a intramuscular hematoma-I do not think this is causing all of her symptoms andsigns. 5) Vasculitis. 6) Functional disorder. 7) Structural disease of her legs. 8) Vascular insufficiency. At this time I do not know the exact etiology of her bilateral leg weakness and pain and there are multiple potential causes. ?? At this time, I recommend the following: ?? 1) At discharge she should follow-up with an outpatient neurologist not drive until released by physician. 2) Given the possibility of an intramuscular hematoma in the right psoas, to continue weighing the risk and benefits of anticoagulation for her recently discovered right lower extremity DVT. 3) if she can tolerate it, I am going to order an MRI of her thoracic and lumbar spine. 4) I am going to check a CK. 5) continue treating underlying medical conditions as you are. I did call and discuss this case with the vascular surgeon Dr. Cadet whose team had started the patient on therapeutic Lovenox yesterday. Given the possibility of an intramuscular hematoma in the right psoas muscle Dr. Cadet and I initially came up with a plan to temporarily hold the therapeutic Lovenox. However, after getting more history from the son indicating that she was standing up using a walkera few days ago and she has bilateral leg weakness (which would argue against a right psoas hematomacausing her symptoms) I feel that the potential benefits of therapeutic anticoagulation at this time outweigh the risks. I have spent an hour on this case today. Over half that time was spent reviewing the chart, reviewing the films, coordinating care with Dr. Cadet as well as getting more history from the patient's son on the phone. Plan * Sim Cole MD - 09/14/2023 3:38 PM EDT Images from the original note were not included. [facility] INFECTIOUS DISEASE PROGRESS NOTE Birgit Estrada 1950 [id number] Date of consult: 09/13/2023 Admit date: 09/12/2023 Requesting Provider: @[email or web address]@ Evaluating physician: Sim Cole MD Reason for Consultation: Acute bacterial cystitis Chief Complaint: Above Subjective History of present illness: Patient is a 73 y.o. Yr old female who is a poor historian with a history of essential hypertension, DJD, fell around 09/05/2023, sustaining increasing right hip pain, and was evaluated at an outside hospital and shown to have severe hyponatremia which was not improving. Patient also had a chest x-ray with possible opacity, with a normal CT scan negative for malignancy. CT scan of the head was unremarkable. Patient was transferred and admitted to [facility] on 09/12/2023. Urinalysis had significant pyuria at 11-20 WBCs but minimal symptoms. Right hip had noted hematoma likely relatedto her previous fall. Chest x-ray at [facility] was unremarkable. The patient was placedon piperacillin/tazobactam and doxycycline on 09/11. Duplex ultrasound was significant for right lower leg DVT in the peroneal and soleus veins. I was consulted on 09/13/2023 for further evaluation and treatment. No reported history of ill contacts, zoonotic exposures, TB, HIV, significant travel, immunocompromised state. 09/14/23 history reviewed. Difficulty with moving her right foot. Slightly confused. No high fever. Tolerating antibiotics. Past Medical History: Diagnosis Date ??? Arthritis ??? Hypertension Past Surgical History: Procedure Laterality Date ??? CHOLECYSTECTOMY ??? TONSILLECTOMY ??? TUBAL LIGATION Pediatric History Patient Parents ??? Not on file Other Topics Concern ??? Not on file Social History Narrative ??? Not on file Negative for cigarettes, alcohol, or drug use family history is not on file. Reviewed and unremarkable No Known Allergies Immunization History Administered Date(s) Administered ??? COVID-19 2022- VACCINE MODERNA (SPIKEVAX) 12 YRS + ([id number]) 05/18/2023 ? ? COVID-19 VACCINE MRNA (MODERNA/BIVALENT)(DARK BLUE CAP W/DOAN)([id number] & [id number]) 03/10/2022 ??? Covid-19 Vaccine MRNA (PF) 18yr+ (Moderna)([id number]) 07/18/2020, 08/15/2020, 02/27/2021, 11/04/2021 Medication: @Scheduled Meds: ??? cefTRIAXone 2 g Intravenous Q24H IVPB Stopped at 09/14/23 1329 ??? doxycycline 100 mg Intravenous Q12H IVPB Stopped at 09/14/23 1035 ??? enoxaparin 1 mg/kg Subcutaneous Q12H 50 mg at 09/14/23 0850 ??? famotidine 20 mg Oral BID 20 mg at 09/14/23 0850 ??? polyethylene glycol 3350 17 g Oral Daily ??? senna-docusate 1 tablet Oral Every Night Continuous Infusions: PRN Meds:. ??? acetaminophen ??? ALPRAZolam ??? cloNIDine HCL ??? cyclobenzaprine ??? docusate sodium ??? hydrALAZINE ??? ipratropium-albuteroL ??? melatonin ??? morphine ??? ondansetron Or ??? ondansetron PF ??? oxyCODONE ??? polyethylene glycol 3350 ??? sodium chloride 0.9% (NS) Please refer to the medical record for a full medication list Review of Systems: Constitutional-- No Fever, chills or sweats. Appetite fair, and no malaise. No fatigue. HEENT-- No new vision, hearing or throat complaints. No epistaxis or oral sores. Denies odynophagiaor dysphagia. No odynophagia or dysphagia. No headache, photophobia or neck stiffness. CV-- No chest pain, palpitation or syncope Resp-- No SOB/cough/Hemoptysis GI- No nausea, vomiting, or diarrhea. No hematochezia, melena, or hematemesis. Denies jaundice or chronic liver disease. -- No dysuria, hematuria, or flank pain. Denies hesitancy, urgency. Occasional frequency. Lymph- no swollen lymph nodes in neck/axilla or groin. Heme- No active bruising or bleeding; no Hx of DVT or PE. MS-- no swelling or pain in the bones or joints of arms/legs, except right hip as per HPI. No new back pain. Neuro-- No acute focal weakness or numbness in the arms or legs. No seizures. Except right foot with some foot drop. Skin--No rashes or lesions, no nodules Physical Exam: Vital Signs Temp: [97.5 ??F (36.4 ??C)-99 ??F (37.2 ??C)] 99 ??F (37.2 ??C) Pulse: [72-73] 73 Resp: [18] 18 BP: (125-139)/(51-61) 139/61 Blood pressure 139/61, pulse 73, temperature 99 ??F (37.2 ??C), resp. rate 18, height 1.6 m (5' 3 ), weight 48.5 kg (107 lb), SpO2 96 %. GENERAL: Awake and alert, in moderate distress. Appears older than stated age. Resting in bed. Disheveled. HEENT: Normocephalic, atraumatic. Oropharynx without thrush. Dentition in fair repair. No cervical adenopathy. No neck masses. Ears externally normal, Nose externally normal. Trachea midline. EYES: No conjunctival injection. No icterus. EOM full. LYMPHATICS: No lymphadenopathy of the neck or axillary or inguinal regions. HEART: No murmur, gallop, or pericardial friction rub. Reg rate rhythm, No JVD at 45 degrees. LUNGS: Clear to auscultation and percussion. No respiratory distress, no use of accessory muscles. No rales or rhonchi. ABDOMEN: Soft, nontender, nondistended. No appreciable HSM. Bowel sounds normal. SKIN: Warm and dry without cutaneous eruptions. No nodules. Right hip hematoma noted. No surrounding crepitus or bullae. PSYCHIATRIC: Mental status lucid. No confusion. EXT: No cellulitic change. Normal ROM. NEURO: Oriented to name, right foot drop Results Review: I reviewed the patient's new clinical results. Recent Labs Lab(s) Units 09/14/23 0248 09/13/23 0148 09/12/23 1807 WBC K/??L 13.4* 15.2* 13.2* HGB GM/DL 7.9* 9.1* 8.5* HCT % 22.4* 24.6* 23.6* PLT K/CU MM 180 205 184 Recent Labs Lab(s) Units 09/14/23 1325 09/14/23 1136 09/14/23 0249 NA meq/L 126* -- 124* K meq/L -- -- 4.1 CL meq/L -- -- 94* CO2 meq/L -- -- 24 BUN mg/dL -- -- 22 CREATININE mg/dL -- -- 0.80 GLUCOSE mg/dL -- 103 103 CALCIUM mg/dL -- -- 8.0* Recent Labs Lab(s) Units 09/14/23 0249 ALKPHOS U/L 36 BILITOT mg/dL 0.9 ALT U/L 213* AST U/L 308* No results for input(s): SEDRATE in the last 168 hours. No results for input(s): CRP in the last 168 hours. No results for input(s): VANCOTROUGH , VANCORANDOM in the last 168 hours. No results for input(s): LACTATE in the last 168 hours. Estimated Creatinine Clearance: 38.4 mL/min (by C-G formula based on SCr of 0.8 mg/dL). @LABRCNTIP (cpk,ast,alt,alkaline phosphatase)@ Microbiology: Microbiology Results (last 7 days) Procedure Component Value Units Date/Time Urine Culture [[id number]] Collected: 09/12/232209 Order Status: Completed Specimen: Urine, Clean Catch Updated: 09/14/23 0735 Result No growth Blood Culture Antecubital, Right [[id number]] Collected: 09/12/23 1806 Order Status: Completed Specimen: Blood from Antecubital, Right Updated: 09/14/23 0101 Result No growth in 24 hours Blood Culture Forearm, Left [[id number]] Collected: 09/12/23 1814 Order Status: Completed Specimen: Blood from Forearm, Left Updated: 09/14/23 0101 Result No growth in 24 hours Radiology: Radiology Results (last 3 days) Procedure Component Value Units Date/Time CT ABDOMEN/PELVIS WITHOUT IV CONTRAST Standard Protocol [[id number]] Collected: 09/14/23 1051 Order Status: Completed Updated: 09/14/23 1129 Narrative: CT SCAN OF THE ABDOMEN AND PELVIS WITHOUT CONTRAST 09/14/2023 9:24 AM HISTORY: Epigastric pain COMPARISON: None. PROCEDURE: Axial images were obtained from the lung bases to the pubic symphysis by computed tomography. This study was performed with techniques to keep radiation doses as low as reasonably achievable, (ALARA). Individualized dose reduction techniques using automated exposure control or adjustment of mA and/or kV according to the patient size were employed. FINDINGS: ABDOMEN: There is a small right and moderate left pleural effusion. There is bibasilar consolidation. Post cholecystectomy. There is no hydronephrosis or nephrolithiasis. There is extensive anasarca. There is no significant free fluid or adenopathy. The solid organs are otherwise unremarkable. PELVIS: There is extensive anasarca. There is mild ascites. The urinary bladder is unremarkable. The appendix is normal. The right psoas muscle is mildly enlarged. There is increased density within the right psoas musculature consistent with intramuscular hematoma. Impression: Pleural effusions and bibasilar consolidation. Follow up to resolution recommended. Extensive anasarca but particularly in the pelvis. Mild ascites of uncertain etiology. Mild enlargement and heterogeneity in the lower right psoas muscle consistent with intramuscular hematoma. Images reviewed, interpreted, and dictated by Jairo Acosta MD CT brain without IV contrast [[id number]] Collected: 09/13/23 1126 Order Status: Completed Updated: 09/13/23 1130 Narrative: HEAD CT 09/13/2023 10:47 AM HISTORY: Acute headache. COMPARISON: None. TECHNIQUE: Multiple axial CT images were performed from the foramen magnum to the vertex. This study was performed with techniques to keep radiation doses as low as reasonably achievable, (ALARA). Individualized dose reduction techniques using automated exposure control or adjustment of mA and/or kV according to the patient size were employed. FINDINGS: The ventricles are normal in size. There is no evidence of hemorrhage. No masses are identified. No extra-axial fluid is seen. The sinuses demonstrate right sphenoid opacification. Impression: No acute intracranial process. Images reviewed, interpreted, and dictated by Jairo Acosta MD US DOPPLER VENOUS LEGS BILATERAL [[id number]] Collected: 09/13/23 0752 Order Status: Completed Updated: 09/13/23 1046 Narrative: Vascular Lower Extremities DVT Study Procedure Demographics Patient Name SEAN REILLY Age 73 Patient Number [id number] Gender Female Race Unknown Ethnicity Corporate ID [id number] Height 63 Date of 1950 Weight 107 Accession Number [id number] BSA 1.48 m^2 Room Number 658 BMI 18.95 kg/m^2 Referring CORNELIUS MCCARTY MD Interpreting [facility] Physician Physician Metal Molder Monse Gonsalez RVT Procedure Type of Study: Veins: Venous Duplex, Venous Duplex Legs, Lower Extremities DVT Study, US DOPPLER VENOUS LEGS BILATERAL. Impressions Summary INDICATION: BILATERAL LE SWELLING (R22.43) ################################ RIGHT: ##Abnormal venous duplex study, deep vein thrombosis identified in the peroneal vein and soleal vein .## Thrombus appears acute in age. No evidence of a superficial venous thrombosis. LEFT: No evidence of deep venous thrombosis (DVT) or superficial venous thrombosis. ################################ Patient Status:Inpatient . Study Location:Portable. Technical Quality:Technically difficult study due to patient's positioning. Velocities are measured in cm/s ; Diameters are measured in mm Right Lower Extremities DVT Study Measurements Right 2D Measurements + + + + + !Location !Visualized !Compressibility !Thrombosis ! + + + + + !GSV Thigh !Yes !Yes !None ! + + + + + !Common Femoral !Yes !Yes !None ! + + + + + !Deep Femoral !Yes !Yes !None ! + + + + + !Prox Femoral !Yes !Yes !None ! + + + + + !Mid Femoral !Yes !Yes !None ! + + + + + !Dist Femoral !Yes !Yes !None ! + + + + + !Popliteal !Yes !Yes !None ! + + + + + !PTV !Yes !Yes !None ! + + + + + !Peroneal !Yes !No !Yes ! + + + + + Right Doppler Measurements + + +------+ + !Location !Signal !Reflux!Reflux (sec) ! + + +------+ + !Common Femoral !Spontaneous Phasic ! ! ! + + +------+ + !Prox Femoral !Spontaneous Phasic ! ! ! + + +------+ + !Deep Femoral !Spontaneous Phasic ! ! ! + + +------+ + !Popliteal !Spontaneous Phasic ! ! ! + + +------+ + Left Lower Extremities DVT Study Measurements Left 2D Measurements + + + + + !Location !Visualized !Compressibility !Thrombosis ! + + + + + !GSV Thigh !Yes !Yes !None ! + + + + + !Common Femoral !Yes !Yes !None ! + + + + + !Deep Femoral !Yes !Yes !None ! + + + + + !Prox Femoral !Yes !Yes !None ! + + + + + !Mid Femoral !Yes !Yes !None ! + + + + + !Dist Femoral !Yes !Yes !None ! + + + + + !Popliteal !Yes !Yes !None ! + + + + + !PTV !Yes !Yes !None ! + + + + + !Peroneal !Yes !Yes !None ! + + + + + Left Doppler Measurements + + +------+ + !Location !Signal !Reflux!Reflux (sec) ! + + +------+ + !Common Femoral !Spontaneous Phasic ! ! ! + + +------+ + !Prox Femoral !Spontaneous Phasic ! ! ! + + +------+ + !Deep Femoral !Spontaneous Phasic ! ! ! + + +------+ + !Popliteal !Spontaneous Phasic ! ! ! + + +------+ + Findings Right Findings Thrombus identified in the peroneal vein (deep venous thrombosis) . Thrombus identified in the soleal vein (deep venous thrombosis) . Thrombus appears to be acute in age. No evidence of a superficial venous thrombosis. Normal response to augmentation in the supine position. Left Findings No evidence of a deep venous thrombosis (DVT). No evidence of a superficial venous thrombosis. Normal response to augmentation in the supine position. Signature XR chest AP portable [[id number]] Collected: 09/13/23800 Order Status: Completed Updated: 09/13/23913 Narrative: PORTABLE CHEST. 09/12/2023 6:19 PM HISTORY: Shortness of breath. COMPARISON: None. FINDINGS: The cardiac silhouette is normal in size. The mediastinum is unremarkable. The lungs are clear. There is no pneumothorax. Impression: No acute cardiopulmonary process. PELVIS, ONE VIEW HISTORY: Hematoma of the right hip, arthritis. COMPARISON: None. FINDINGS: A single AP view of the pelvis exam demonstrates no acute fracture or dislocation. The joint spaces appear unremarkable. No soft tissue abnormality is seen. IMPRESSION: No acute bony abnormality. Images reviewed, interpreted, and dictated by Dr. Jose Barnes. Transcribed by Jane Stephens PA-C. XR pelvis 1 or 2 views [[id number]] Collected: 09/13/23800 Order Status: Completed Updated: 09/13/23913 Narrative: PORTABLE CHEST. 09/12/2023 6:19 PM HISTORY: Shortness of breath. COMPARISON: None. FINDINGS: The cardiac silhouette is normal in size. The mediastinum is unremarkable. The lungs are clear. There is no pneumothorax. Impression: No acute cardiopulmonary process. PELVIS, ONE VIEW HISTORY: Hematoma of the right hip, arthritis. COMPARISON: None. FINDINGS: A single AP view of the pelvis exam demonstrates no acute fracture or dislocation. The joint spaces appear unremarkable. No soft tissue abnormality is seen. IMPRESSION: No acute bony abnormality. Images reviewed, interpreted, and dictated by Dr. Jose Barnes. Transcribed by Jane Stephens PA-C. . IMPRESSION: 1. Pyuria with possible acute bacterial cystitis. 2. Right hip hematoma after fall 09/05/2023. X-ray without fracture. 3. Reported chest x-ray infiltrate resolved. Could have had atelectasis, and is at risk for pulmonary embolus given demonstration of new DVT. 4. DVT right lower leg soleus and peroneal veins positive duplex 09/13/2023. 5. Leukocytosis, neutrophilic related to above issues. May be related to cystitis versus other. Blood cultures x 2 from 09/11 negative. 6. Hyponatremia related to above issues, medications, possible SIADH, versus other. 126. 7. Anemia, related to above issues and right hip hematoma. Worse. 8. Hypocalcemia 8.0. 9. Elevated transaminase with ALT 213, worse, AST 308, worse, total bilirubin 0.9, alkaline phosphatase 45. Reportedly CT scan abdomen and pelvis at outside hospital without significant pathology. May need to repeat ultrasound versus other. PLAN: 1. Diagnostically, continue to follow patient's physical exam, CBC, CMP, CRP, cultures which have been obtained, and radiographic studies. 2. Therapeutically, consider treatment with doxycycline and ceftriaxone pending further culture data. Duration to be determined. 3. Supportive care. Room air on 09/13/2023. Orthopedics, nephrology, neurology evaluating. I discussed the patient's findings and my recommendations with the patient and nursing. Thank you for asking me to see Birgit Estrada. Our group would be pleased to follow this patient over the course of their hospitalization and assist with outpatient antimicrobial therapy, as indicated. Further recommendations depend on the results of the cultures and clinical course. Increased riskfor adverse drug reactions, complications of IV access, need for surgery, readmission. Sim Cole MD 09/14/2023 * Hayder Stark, PT - 09/14/2023 2:52 PM EDT Images from the original note were not included. Inpatient Physical Therapy Attempt to Treat Patient Name: Birgit Estrada Birthday: 1950 Date of Attempt: 09/14/2023 Noted RLE DVT yesterday on 09/12. Per chart review today 09/13, pt on anticoagulants but INR at 0.99 when suggested therapeutic levels for thromboembolic events 2.5-3.5. Epic messaged to attending MD campos for mobility as appropriate/safe. Will check back as time permits/appropriate. Electronically signed by Hayder Stark PT - 09/14/2023 - 3:22 PM EDT * Flaco Alfaro MD - 09/14/2023 2:31 PM EDT Subjective: Seen and examined at bedside. Per family at bedside patient was confused earlier. On my evaluation patient is alert and awake. Not confused. Denies chest pain or shortness of breath. Objective: Blood pressure 139/61, pulse 73, temperature 99 ??F (37.2 ??C), resp. rate 18, height 1.6 m (5' 3 ), weight 48.5 kg (107 lb), SpO2 96 %. No intake or output data in the 24 hours ending 09/14/23 1431 09/12 0700 - 09/13 0659 In: 100 [P.O.:100] Out: - Physical Exam: GEN: NAD Neuro: AAO no focal deficits seen Psychiatric: Normal mood and affect. Cooperative with exam Eyes: Nonicteric, pupils equal, no conjunctivitis ENT: OMM moist, no lesion seen Neck: No JVD discernible, trachea appears midline Cardiovascular: Regular rate, + edema Respiratory: Quiet respirations, symmetrical chest expansion Abdomen: NTTP Nondistended : No Red catheter, no palp bladder Skin: No rash or lesions Labs: Recent Labs Lab(s) Units 09/14/23 0248 09/13/23 0148 09/12/23 1807 WBC K/??L 13.4* 15.2* 13.2* HGB GM/DL 7.9* 9.1* 8.5* PLT K/CU MM 180 205 184 Recent Labs Lab(s) Units 09/14/23 1325 09/14/23 0249 09/13/23 2314 09/13/23 1234 09/13/23 0148 09/12/23 1808 NA meq/L 126* 124* 125* 125* 124* 122* 121* K meq/L -- 4.1 -- 4.2 4.4 4.4 CL meq/L -- 94* -- 91* 90* 88* CO2 meq/L -- 24 -- 28 26 27 BUN mg/dL -- 22 -- 24* 26* 30* CREATININE mg/dL -- 0.80 -- 0.94 0.87 1.03* CALCIUM mg/dL -- 8.0* -- 8.4 8.0* 8.2* ALBUMIN g/dL -- 2.3* -- -- -- 2.9* A/P: - Hyponatremia - Hypertension - Right hip hematoma - Right lower extremity DVT. - Anemia ?? Plan: Hyponatremia: asymptomatic: . -Sodium on admission at outside hospital 119 .. Sodium in [facility] on admission 121 >>124 mmol/L >> sodium today 126 . -Urine osmolarity 892, urine sodium less than 15, serum osmolarity 261 -Currently patient on fluid restriction..Will repeat sodium level q4 hours. -Patient was on hydrochlorothiazide at home. -Will give a dose of Lasix today. Patient looks slightly volume up on exam. -Target sodium to be corrected 4-6 points in next 24 hours. -Hypertension: Adjust blood pressure medications as needed. Please do not hesitate to call me with the repeat sodium level. [phone]. Extensively discussedwith the son and nurse at bedside. Flaco Alfaro MD 09/14/23 2:31 PM * Ashely Rolon LCSW - 09/14/2023 1:53 PM EDTSummary: Progress Social Work Progress Note Patient is not medically ready. Patient's family would like her to go to [facility]. [facility]even has agreed and is following. will continue to follow. Patient is straight medicare and will not need a precert. Ashely Rolon LCSW * Cornelius Mccarty MD - 09/14/2023 10:09 AM EDT Subjective Patient confused Awake No nausea or vomiting No fever Last Recorded Vitals Blood pressure (!) 164/70, pulse 74, temperature 98.6 ??F (37 ??C), temperature source Oral, resp. rate 16, height 1.6 m (5' 3 ), weight 48.5 kg (107 lb), SpO2 94 %. Physical Exam Head atraumatic normocephalic Pupils round and reactive Eyes no conjunctival injection or discharge Ears no discharge Nose no bleeding or discharge Mouth dry Neck supple forage of motion Chest diminished entry bilaterally no wheezes heart S1 and S2 healed regular rate Abdomen soft audible bowel sounds Extremities bilateral extremity edema with right hip discoloration Neurological patient alert awake move extremities Psychiatric anxiety Skin right hip area discoloration Labs: Results for orders placed or performed during the hospital encounter of 09/12/23 (from the past 24 hour(s)) Glucose, Nova Meter Status: None Collection Time: 09/13/23 11:44 AM Result Value Ref Range POC-GLUCOSE 94 70 - 110 mg/dL [employer] [id number] Basic Metabolic Panel Status: Abnormal Collection Time: 09/13/23 12:34 PM Result Value Ref Range Sodium 124 (L) 136 - 146 meq/L Potassium 4.2 3.5 - 5.1 meq/L Chloride 91 (L) 102 - 112 meq/L CO2 28 21 - 32 meq/L Anion Gap 9 9 - 20 BUN 24 (H) 7 - 22 mg/dL Creatinine 0.94 0.55 - 1.02 mg/dL BUN/Creatinine 26 (H) 8 - 20 Glucose 98 74 - 106 mg/dL Calcium 8.4 8.4 - 10.1 mg/dL Osmolality Calc 253.7 eGFR (mL/min/1.73m2) >60 >=60 mL/min/1.73m2 Osmolality, serum Status: None Collection Time: 09/13/23 12:34 PM Result Value Ref Range Osmolality Serum 261 mOsm/kg Sodium Status: Abnormal Collection Time: 09/13/23 12:34 PM Result Value Ref Range Sodium 125 (L) 136 - 146 meq/L Glucose, Nova Meter Status: None Collection Time: 09/13/23 5:02 PM Result Value Ref Range POC-GLUCOSE 108 70 - 110 mg/dL [employer]er [id number] Sodium Status: Abnormal Collection Time: 09/13/23 11:14 PM Result Value Ref Range Sodium 125 (L) 136 - 146 meq/L CBC w Manual Diff (SJ-BKR) Status: Abnormal Collection Time: 09/14/23 2:48 AM Result Value Ref Range WBC 13.4 (H) 4.0 - 10.0 K/??L RBC 2.69 (L) 3.93 - 5.22 M/??L Hemoglobin 7.9 (L) 11.2 - 15.7 GM/DL Hematocrit 22.4 (L) 34.1 - 44.9 % MCV 83 79 - 95 fL MCH 29.4 25.6 - 32.2 pg MCHC 35.3 32.2 - 35.5 GM/DL RDW 12.8 11.7 - 14.4 % Platelets 180 140 - 375 K/CU MM MPV 11.0 9.4 - 12.3 fL Lactic acid (SJ) Status: Normal Collection Time: 09/14/23 2:48 AM Result Value Ref Range Lactic Acid Level (mmol/L) 0.9 0.4 - 2.0 mmol/L Manual Differential Status: Abnormal Collection Time: 09/14/23 2:48 AM Result Value Ref Range Total Counted 100 % Neutros (manual) 84 (H) 50 - 65 % % Lymphs (manual) 12 (L) 24 - 44 % % Monos (manual) 4 4 - 5 % Platelet Estimate Adequate Adequate ANC# 11.26 K/??L Comprehensive metabolic panel Status: Abnormal Collection Time: 09/14/23 2:49 AM Result Value Ref Range Sodium 124 (L) 136 - 146 meq/L Potassium 4.1 3.5 - 5.1 meq/L Chloride 94 (L) 102 - 112 meq/L CO2 24 21 - 32 meq/L Calcium 8.0 (L) 8.4 - 10.1 mg/dL Glucose 103 74 - 106 mg/dL BUN 22 7 - 22 mg/dL Creatinine 0.80 0.55 - 1.02 mg/dL BUN/Creatinine 28 (H) 8 - 20 Albumin 2.3 (L) 3.4 - 5.0 g/dL Alkaline Phosphatase 36 27 - 136 U/L ALT 213 (H) 13 - 56 U/L AST 308 (H) 5 - 37 U/L Total Bilirubin 0.9 0.2 - 1.2 mg/dL Protein, Total 4.5 (L) 6.4 - 8.2 gm/dL Anion Gap 10 9 - 20 A/G Ratio 1.0 (L) 1.1 - 2.5 Globulin 2.2 1.5 - 4.5 g/dL Osmolality Calc 253.2 eGFR (mL/min/1.73m2) >60 >=60 mL/min/1.73m2 Vitamin B12 Status: Normal Collection Time: 09/14/23 2:49 AM Result Value Ref Range Vitamin B12 560 193 - 986 pg/mL Folate, Serum Status: Normal Collection Time: 09/14/23 2:49 AM Result Value Ref Range Folate 14.60 3.10 - 17.50 ng/mL CT brain without IV contrast Narrative: HEAD CT 09/13/2023 10:47 AM HISTORY: Acute headache. COMPARISON: None. TECHNIQUE: Multiple axial CT images were performed from the foramen magnum to the vertex. This study was performed with techniques to keep radiation doses as low as reasonably achievable, (ALARA). Individualized dose reduction techniques using automated exposure control or adjustment of mA and/or kV according to the patient size were employed. FINDINGS: The ventricles are normal in size. There is no evidence of hemorrhage. No masses are identified. No extra-axial fluid is seen. The sinuses demonstrate right sphenoid opacification. Impression: No acute intracranial process. Images reviewed, interpreted, and dictated by Jairo Acosta MD US DOPPLER VENOUS LEGS BILATERAL Vascular Lower Extremities DVT Study Procedure Demographics Patient Name SEAN REILLY Age 73 Patient Number [id number] Gender Female Race Unknown Ethnicity Corporate ID [id number] Height 63 Date of 1950 Weight 107 Accession Number [id number] BSA 1.48 m^2 Room Number 658 BMI 18.95 kg/m^2 Referring CORNELIUS MCCARTY MD Interpreting [facility] Physician Physician Metal Molder Monse Gonsalez RVT Procedure Type of Study: Veins: Venous Duplex, Venous Duplex Legs, Lower Extremities DVT Study, US DOPPLER VENOUS LEGS BILATERAL. Impressions Summary INDICATION: BILATERAL LE SWELLING (R22.43) ################################ RIGHT: ##Abnormal venous duplex study, deep vein thrombosis identified in the peroneal vein and soleal vein .## Thrombus appears acute in age. No evidence of a superficial venous thrombosis. LEFT: No evidence of deep venous thrombosis (DVT) or superficial venous thrombosis. ################################ Patient Status:Inpatient . Study Location:Portable. Technical Quality:Technically difficult study due to patient's positioning. Velocities are measured in cm/s ; Diameters are measured in mm Right Lower Extremities DVT Study Measurements Right 2D Measurements + + + + + !Location !Visualized !Compressibility !Thrombosis ! + + + + + !GSV Thigh !Yes !Yes !None ! + + + + + !Common Femoral !Yes !Yes !None ! + + + + + !Deep Femoral !Yes !Yes !None ! + + + + + !Prox Femoral !Yes !Yes !None ! + + + + + !Mid Femoral !Yes !Yes !None ! + + + + + !Dist Femoral !Yes !Yes !None ! + + + + + !Popliteal !Yes !Yes !None ! + + + + + !PTV !Yes !Yes !None ! + + + + + !Peroneal !Yes !No !Yes ! + + + + + Right Doppler Measurements + + +------+ + !Location !Signal !Reflux!Reflux (sec) ! + + +------+ + !Common Femoral !Spontaneous Phasic ! ! ! + + +------+ + !Prox Femoral !Spontaneous Phasic ! ! ! + + +------+ + !Deep Femoral !Spontaneous Phasic ! ! ! + + +------+ + !Popliteal !Spontaneous Phasic ! ! ! + + +------+ + Left Lower Extremities DVT Study Measurements Left 2D Measurements + + + + + !Location !Visualized !Compressibility !Thrombosis ! + + + + + !GSV Thigh !Yes !Yes !None ! + + + + + !Common Femoral !Yes !Yes !None ! + + + + + !Deep Femoral !Yes !Yes !None ! + + + + + !Prox Femoral !Yes !Yes !None ! + + + + + !Mid Femoral !Yes !Yes !None ! + + + + + !Dist Femoral !Yes !Yes !None ! + + + + + !Popliteal !Yes !Yes !None ! + + + + + !PTV !Yes !Yes !None ! + + + + + !Peroneal !Yes !Yes !None ! + + + + + Left Doppler Measurements + + +------+ + !Location !Signal !Reflux!Reflux (sec) ! + + +------+ + !Common Femoral !Spontaneous Phasic ! ! ! + + +------+ + !Prox Femoral !Spontaneous Phasic ! ! ! + + +------+ + !Deep Femoral !Spontaneous Phasic ! ! ! + + +------+ + !Popliteal !Spontaneous Phasic ! ! ! + + +------+ + Findings Right Findings Thrombus identified in the peroneal vein (deep venous thrombosis) . Thrombus identified in the soleal vein (deep venous thrombosis) . Thrombus appears to be acute in age. No evidence of a superficial venous thrombosis. Normal response to augmentation in the supine position. Left Findings No evidence of a deep venous thrombosis (DVT). No evidence of a superficial venous thrombosis. Normal response to augmentation in the supine position. Signature XR chest AP portable, XR pelvis 1 or 2 views Narrative: PORTABLE CHEST. 09/12/2023 6:19 PM HISTORY: Shortness of breath. COMPARISON: None. FINDINGS: The cardiac silhouette is normal in size. The mediastinum is unremarkable. The lungs are clear. There is no pneumothorax. Impression: No acute cardiopulmonary process. PELVIS, ONE VIEW HISTORY: Hematoma of the right hip, arthritis. COMPARISON: None. FINDINGS: A single AP view of the pelvis exam demonstrates no acute fracture or dislocation. The joint spaces appear unremarkable. No soft tissue abnormality is seen. IMPRESSION: No acute bony abnormality. Images reviewed, interpreted, and dictated by Dr. Jose Barnes. Transcribed by Jane Stephens PA-C. Assessment #1 hyponatremia Patient mid to the hospital from nephrology evaluation will check electrolytes start IV fluid CT of chest done with no apparent malignancy ?? 2 pneumonia patient already on IV Zosyn doxycycline breathing treatment oxygen cultures ordered ?? #3 dehydration patient started on IV fluid ?? #4 anxiety restart Xanax as needed ?? #5 hypertension start hydralazine as needed ?? #6 GI prophylaxis Pepcid ?? #7 right hip hematoma will consult Ortho start pain control ? #8 DVT prophylaxis 09/14/2023 Plan Altered mental status/acute encephalopathy Consult neurology Lower extremity deep vein thrombosis Will start heparin drip Sodium improving CAT scan pending Will consult palliative care Patient will need placement when medically stable Discharge Planning: Patient not medically stable to be discharge Will consult case management patient will need rehab * Ashely Rolon LCSW - 09/13/2023 3:14 PM EDTSummary: Progress Social Work Progress Note CM has consult for SNF. Cm faxed patient out but needs to speak with patient and family to see their preferences. Cm will continue to follow. Ashely Rolon LCSW * Cornelius Mccarty MD - 09/13/2023 11:47 AM EDT Subjective Patient confused uncooperative No nausea or vomiting No fever Last Recorded Vitals Blood pressure (!) 164/70, pulse 74, temperature 98.6 ??F (37 ??C), temperature source Oral, resp. rate 16, height 1.6 m (5' 3 ), weight 48.5 kg (107 lb), SpO2 95 %. Physical Exam Head atraumatic normocephalic Pupils round and reactive Eyes no conjunctival injection or discharge Ears no discharge Nose no bleeding or discharge Mouth dry Neck supple forage of motion Chest diminished entry bilaterally no wheezes heart S1 and S2 healed regular rate Abdomen soft audible bowel sounds Extremities bilateral extremity edema with right hip discoloration Neurological patient alert awake move extremities Psychiatric anxiety Skin right hip area discoloration Labs: Results for orders placed or performed during the hospital encounter of 09/12/23 (from the past 24 hour(s)) CBC with automated diff Status: Abnormal Collection Time: 09/12/23 6:07 PM Result Value Ref Range WBC 13.2 (H) 4.0 - 10.0 K/??L RBC 2.85 (L) 3.93 - 5.22 M/??L Hemoglobin 8.5 (L) 11.2 - 15.7 GM/DL Hematocrit 23.6 (L) 34.1 - 44.9 % MCV 83 79 - 95 fL MCH 29.8 25.6 - 32.2 pg MCHC 36.0 (H) 32.2 - 35.5 GM/DL RDW 12.6 11.7 - 14.4 % Platelets 184 140 - 375 K/CU MM MPV 11.7 9.4 - 12.3 fL % Neutros 95 (H) 34 - 71 % % Lymphs 3 (L) 19 - 52 % % Monos 2 (L) 5 - 13 % % Eos 0 (L) 1 - 6 % % Baso 0 0 - 1 % NRBC Absolute <0.01 0 - 0.012 K/ul # Neutros 12.48 (H) 1.56 - 6.13 K/??L # Lymphs 0.38 (L) 1.18 - 3.74 K/??L # Monos 0.29 0.24 - 0.86 K/??L # Eos <0.03 (L) 0.04 - 0.36 K/??L # Baso <0.03 0.01 - 0.08 K/??L Immature Granulocytes-Relative 0.30 0.01 - 0.43 % # IG 0.04 (H) 0.00 - 0.03 K/uL Prothrombin time/INR Status: Normal Collection Time: 09/12/23 6:07 PM Result Value Ref Range Protime 10.9 9.0 - 12.0 seconds INR 0.99 0.80 - 1.10 aPTT Status: Normal Collection Time: 09/12/23 6:07 PM Result Value Ref Range PTT 23.2 22.0 - 32.0 seconds Lactic Acid with reflex Status: Normal Collection Time: 09/12/23 6:07 PM Result Value Ref Range Lactic Acid Level (mmol/L) 1.8 0.4 - 2.0 mmol/L CBC Scan Status: Normal Collection Time: 09/12/23 6:07 PM Result Value Ref Range Platelet Estimate Adequate Adequate RBC Morphology Normal Normal Comprehensive Metabolic Panel Status: Abnormal Collection Time: 09/12/23 6:08 PM Result Value Ref Range Sodium 121 (L) 136 - 146 meq/L Potassium 4.4 3.5 - 5.1 meq/L Chloride 88 (L) 102 - 112 meq/L CO2 27 21 - 32 meq/L Calcium 8.2 (L) 8.4 - 10.1 mg/dL Glucose 162 (H) 74 - 106 mg/dL BUN 30 (H) 7 - 22 mg/dL Creatinine 1.03 (H) 0.55 - 1.02 mg/dL BUN/Creatinine 29 (H) 8 - 20 Albumin 2.9 (L) 3.4 - 5.0 g/dL Alkaline Phosphatase 45 27 - 136 U/L ALT 163 (H) 13 - 56 U/L AST 216 (H) 5 - 37 U/L Total Bilirubin 0.9 0.2 - 1.2 mg/dL Protein, Total 5.2 (L) 6.4 - 8.2 gm/dL Anion Gap 10 9 - 20 A/G Ratio 1.3 1.1 - 2.5 Globulin 2.3 1.5 - 4.5 g/dL Osmolality Calc 253.8 eGFR (mL/min/1.73m2) 58 (L) >=60 mL/min/1.73m2 PROBNP Status: Abnormal Collection Time: 09/12/23 6:08 PM Result Value Ref Range ProBNP (pg/mL) 1,616 (H) 0 - 125 pg/mL High Sensitivity Troponin I Status: Normal Collection Time: 09/12/23 6:08 PM Result Value Ref Range Troponin I High Sensitivity (pg/mL) 13.1 3 - 58.8 pg/mL Procalcitonin Status: Normal Collection Time: 09/12/23 6:08 PM Result Value Ref Range Procalcitonin <0.14 <=0.50 ng/mL Blood Gas, Arterial Status: Abnormal Collection Time: 09/12/23 6:25 PM Result Value Ref Range pH, Arterial 7.51 (H) 7.35 - 7.45 pCO2, Arterial 34 (L) 35 - 45 mm Hg pO2, Arterial 68 (L) 80 - 100 mm Hg HCO3, Arterial 27 (H) 20 - 26 mmol/L Base Excess, Arterial 4.1 (H) -2.0 - 2.0 mmol/L O2 Sat, Arterial 95.7 95.0 - 100.0 % CTO2 ARTERIAL 11.9 mmol/L THB ARTERIAL 9.0 (L) 12.0 - 18.0 g/dL [facility] COLLECTION SITE Right Radial Arterial Puncture Yes Blood Gas PT Temperature C 37.0 Marques's Test Acceptable ABG Number of Draw Attempts 1 Comment room air Performed by: Agapito Coronel [employer]IRT BIKE MECHANIC FIO2 Blood Gas Temperature Corrected Results No No ECG 12 lead Status: None (In process) Collection Time: 09/12/23 7:00 PM Result Value Ref Range VENTRICULAR RATE EKG/MIN 73 BPM ATRIAL RATE (MCT) 73 BPM DE Interval 130 ms QRS-INTERVAL (MSEC) 72 ms QT Interval 358 ms QTC Interval 394 ms P [place] 60 degrees R AXIS (MCT) 60 degrees T Wave [place] 60 degrees [place] Diagnosis Normal sinus rhythm Anterior infarct (cited on or before 12-SEP-2023) Abnormal ECG When compared with ECG of 12-SEP-2023 18:59, No significant change was found Urinalysis w/Microscopic Status: Abnormal Collection Time: 09/12/23 10:10 PM Result Value Ref Range Color, UA Yellow Clarity, UA Turbid (A) Clear Specific [place], UA 1.041 (H) 1.005 - 1.030 pH, UA 6.0 6.0 - 8.0 Leukocytes, UA Negative Negative Nitrite, UA Negative Negative Protein, UA 1+ (A) Negative Glucose, UA Normal Normal Ketones, UA Negative Negative Urobilinogen, UA Normal Normal Bilirubin, UA Negative Negative Blood, UA 3+ (A) Negative RBC, UA 0-2 (A) None Seen /HPF WBC, UA 11-20 (A) None Seen /HPF Bacteria, UA 1+ (A) None Seen, Trace Mucus 1+ (A) None Seen SQUAMOUS EPITHELIAL 3-5 (A) None Seen /HPF Specimen Source Urine, Voided Urine Drug Screen Status: Abnormal Collection Time: 09/12/23 10:10 PM Result Value Ref Range Amphetamine Urine Negative Negative Barbiturate Screen Negative Negative Benzodiazepine Screen Negative Negative Cocaine (Metab.) Screen Negative Negative Opiate Screen Positive (A) Negative Phencyclidine Screen Negative Negative Tricyclic Screen Negative Negative Tetrahydrocannabinol Negative Negative Creatinine, Ur 165.0 mg/dL pH, UA 5.5 (L) 6.0 - 8.0 CBC - Hemogram (-BKR) Status: Abnormal Collection Time: 09/13/23 1:48 AM Result Value Ref Range WBC 15.2 (H) 4.0 - 10.0 K/??L RBC 2.99 (L) 3.93 - 5.22 M/??L Hemoglobin 9.1 (L) 11.2 - 15.7 GM/DL Hematocrit 24.6 (L) 34.1 - 44.9 % MCV 82 79 - 95 fL MCH 30.4 25.6 - 32.2 pg MCHC 37.0 (H) 32.2 - 35.5 GM/DL RDW 12.5 11.7 - 14.4 % Platelets 205 140 - 375 K/CU MM MPV 11.6 9.4 - 12.3 fL Basic Metabolic Panel Status: Abnormal Collection Time: 09/13/23 1:48 AM Result Value Ref Range Sodium 122 (L) 136 - 146 meq/L Potassium 4.4 3.5 - 5.1 meq/L Chloride 90 (L) 102 - 112 meq/L CO2 26 21 - 32 meq/L Anion Gap 10 9 - 20 BUN 26 (H) 7 - 22 mg/dL Creatinine 0.87 0.55 - 1.02 mg/dL BUN/Creatinine 30 (H) 8 - 20 Glucose 128 (H) 74 - 106 mg/dL Calcium 8.0 (L) 8.4 - 10.1 mg/dL Osmolality Calc 252.3 eGFR (mL/min/1.73m2) >60 >=60 mL/min/1.73m2 Ammonia Status: Normal Collection Time: 09/13/23 1:48 AM Result Value Ref Range Ammonia 16 11 - 32 ??mol/L Lactic Acid with reflex (SJ) Status: Normal Collection Time: 09/13/23 1:48 AM Result Value Ref Range Lactic Acid Level (mmol/L) 1.0 0.4 - 2.0 mmol/L Procalcitonin Status: Normal Collection Time: 09/13/23 1:48 AM Result Value Ref Range Procalcitonin <0.14 <=0.50 ng/mL Glucose, Nova Meter Status: None Collection Time: 09/13/23 11:44 AM Result Value Ref Range POC-GLUCOSE 94 70 - 110 mg/dL [employer]ating [employer]er [id number] CT brain without IV contrast Narrative: HEAD CT 09/13/2023 10:47 AM HISTORY: Acute headache. COMPARISON: None. TECHNIQUE: Multiple axial CT images were performed from the foramen magnum to the vertex. This study was performed with techniques to keep radiation doses as low as reasonably achievable, (ALARA). Individualized dose reduction techniques using automated exposure control or adjustment of mA and/or kV according to the patient size were employed. FINDINGS: The ventricles are normal in size. There is no evidence of hemorrhage. No masses are identified. No extra-axial fluid is seen. The sinuses demonstrate right sphenoid opacification. Impression: No acute intracranial process. Images reviewed, interpreted, and dictated by Jairo Acosta MD US DOPPLER VENOUS LEGS BILATERAL Vascular Lower Extremities DVT Study Procedure Demographics Patient Name SEAN REILLY Age 73 Patient Number [id number] Gender Female Race Unknown Ethnicity Corporate ID [id number] Height 63 Date of 1950 Weight 107 Accession Number [id number] BSA 1.48 m^2 Room Number [id number] BMI 18.95 kg/m^2 Referring CORNELIUS MCCARTY MD Interpreting [place] Physician Physician Metal Molder Monse Gonsalez RVT Procedure Type of Study: Veins: Venous Duplex, Venous Duplex Legs, Lower Extremities DVT Study, US DOPPLER VENOUS LEGS BILATERAL. Impressions Summary INDICATION: BILATERAL LE SWELLING (R22.43) ################################ RIGHT: ##Abnormal venous duplex study, deep vein thrombosis identified in the peroneal vein and soleal vein .## Thrombus appears acute in age. No evidence of a superficial venous thrombosis. LEFT: No evidence of deep venous thrombosis (DVT) or superficial venous thrombosis. ################################ Patient Status:Inpatient . Study Location:Portable. Technical Quality:Technically difficult study due to patient's positioning. Velocities are measured in cm/s ; Diameters are measured in mm Right Lower Extremities DVT Study Measurements Right 2D Measurements + + + + + !Location !Visualized !Compressibility !Thrombosis ! + + + + + !GSV Thigh !Yes !Yes !None ! + + + + + !Common Femoral !Yes !Yes !None ! + + + + + !Deep Femoral !Yes !Yes !None ! + + + + + !Prox Femoral !Yes !Yes !None ! + + + + + !Mid Femoral !Yes !Yes !None ! + + + + + !Dist Femoral !Yes !Yes !None ! + + + + + !Popliteal !Yes !Yes !None ! + + + + + !PTV !Yes !Yes !None ! + + + + + !Peroneal !Yes !No !Yes ! + + + + + Right Doppler Measurements + + +------+ + !Location !Signal !Reflux!Reflux (sec) ! + + +------+ + !Common Femoral !Spontaneous Phasic ! ! ! + + +------+ + !Prox Femoral !Spontaneous Phasic ! ! ! + + +------+ + !Deep Femoral !Spontaneous Phasic ! ! ! + + +------+ + !Popliteal !Spontaneous Phasic ! ! ! + + +------+ + Left Lower Extremities DVT Study Measurements Left 2D Measurements + + + + + !Location !Visualized !Compressibility !Thrombosis ! + + + + + !GSV Thigh !Yes !Yes !None ! + + + + + !Common Femoral !Yes !Yes !None ! + + + + + !Deep Femoral !Yes !Yes !None ! + + + + + !Prox Femoral !Yes !Yes !None ! + + + + + !Mid Femoral !Yes !Yes !None ! + + + + + !Dist Femoral !Yes !Yes !None ! + + + + + !Popliteal !Yes !Yes !None ! + + + + + !PTV !Yes !Yes !None ! + + + + + !Peroneal !Yes !Yes !None ! + + + + + Left Doppler Measurements + + +------+ + !Location !Signal !Reflux!Reflux (sec) ! + + +------+ + !Common Femoral !Spontaneous Phasic ! ! ! + + +------+ + !Prox Femoral !Spontaneous Phasic ! ! ! + + +------+ + !Deep Femoral !Spontaneous Phasic ! ! ! + + +------+ + !Popliteal !Spontaneous Phasic ! ! ! + + +------+ + Findings Right Findings Thrombus identified in the peroneal vein (deep venous thrombosis) . Thrombus identified in the soleal vein (deep venous thrombosis) . Thrombus appears to be acute in age. No evidence of a superficial venous thrombosis. Normal response to augmentation in the supine position. Left Findings No evidence of a deep venous thrombosis (DVT). No evidence of a superficial venous thrombosis. Normal response to augmentation in the supine position. Signature XR chest AP portable, XR pelvis 1 or 2 views Narrative: PORTABLE CHEST. 09/12/2023 6:19 PM HISTORY: Shortness of breath. COMPARISON: None. FINDINGS: The cardiac silhouette is normal in size. The mediastinum is unremarkable. The lungs are clear. There is no pneumothorax. Impression: No acute cardiopulmonary process. PELVIS, ONE VIEW HISTORY: Hematoma of the right hip, arthritis. COMPARISON: None. FINDINGS: A single AP view of the pelvis exam demonstrates no acute fracture or dislocation. The joint spaces appear unremarkable. No soft tissue abnormality is seen. IMPRESSION: No acute bony abnormality. Images reviewed, interpreted, and dictated by Dr. Jose Barnes. Transcribed by Jane Stephens PA-C. Assessment #1 hyponatremia Patient mid to the hospital from nephrology evaluation will check electrolytes start IV fluid CT of chest done with no apparent malignancy ?? 2 pneumonia patient already on IV Zosyn doxycycline breathing treatment oxygen cultures ordered ?? #3 dehydration patient started on IV fluid ?? #4 anxiety restart Xanax as needed ?? #5 hypertension start hydralazine as needed ?? #6 GI prophylaxis Pepcid ?? #7 right hip hematoma will consult Ortho start pain control ? #8 DVT prophylaxis Plan Altered mental status/acute encephalopathy Check CAT scan of the head Consult neurology Lower extremity deep vein thrombosis Will start heparin drip Discharge Planning: Patient not medically stable to be discharge Will consult case management patient will need rehab * Monse Gonsalez - 09/13/2023 10:14 AM EDT Abnormal venous Doppler. Preliminary was given to the ordering provider and a stat read has been requested. * aJnis Guerin - 09/13/2023 10:03 AM EDT Images from the original note were not included. Inpatient Occupational Therapy Initial Evaluation Patient Name: Birgit Estrada Date of : 1950 Date of Evaluation: 09/13/23 Start Time: 919 Stop Time: 100 Session Duration: 43 minutes Total time: 53 minutes spent, including 10 minutes for nursing collaboration, thorough chart and systems review, and clinical reasoning. This patient is a 73 y.o. female admitted on 09/12/2023 with Weakness [R53.1]. Past Medical History: Diagnosis Date ??? Arthritis ??? Hypertension Past Surgical History: Procedure Laterality Date ??? CHOLECYSTECTOMY ??? TONSILLECTOMY ??? TUBAL LIGATION General Visit type: Initial Evaluation Approved by: Nurse Velásquez Patient disposition upon entry: Patient verified by name, Patient verified by date of , Supinein bed, All needs met and within reach, Call light/pull cord in reach, Bed alarm applied Co-treated by: PT Precautions Weightbearing status: Weight bearing as tolerated (WBAT), Right lower extremity Precautions: Fall risk, venous doppler completed after therapy eval identified R LE DVT in R peroneal and soleal veins, pt not currently on anticoagulation secondary to R hip hematoma, follow up on precautions when available in chart Isolation precautions: Standard LDA/Brace/Protective equipment: Lines, drains, and airways: peripheral IV, telemetry Subjective Subjective: Pt agreeable Pain pt reports pain in R LE however unable to rate Cognition Cognition: Overall cognitive status: Impaired Orientation level: Oriented to person, Disoriented to place, Disoriented to time, Disoriented to situation, able to answer she was in hospital with cueing however appears to be disoriented to situation Following commands: Follows one step commands with increased time Follows one step commands with repetition Home Living Pt reports she lives at home with . Pt reports 1 step to enter and resides in 1 level home. Pt reports she was IND prior to fall. Therapists were unsure of pt report due to confusion and RN was at bedside who contacted pt's son for further information. Pt son does report pt was IND and caring for ~1-2 weeks ago before fall at home. Son reports level of confusion is also new as pt was not this confused prior. Objective Range of Motion Assessment B UE appears grossly WFL however with difficulty completing formal ROM/MMT testing secondary to pt cognition and difficulty following all commands. B UE ROM and strength however appear equal during testing. Bed Mobility Supine to sit: Total assistance , 2 person assist Sit to supine: Max assistance , 2 person assist Transfers Sit to stand:Moderate assistance, 2 person assist, Gait belt used, Rolling walker used Stand to sit:Maximal assistance, 2 person assist, Gait belt used, Rolling walker used ADLs Feeding:Minimal Assistance Patient is a feeder: No, pt ROM appearing able to complete self feeding however pending pt cognition, pt may require some assistance for feeding at this time Grooming:Minimal Assistance Bathing:Maximal Assistance Upper body dressing:Minimal Assistance Lower body dressing:Total Assistance Toileting:Total Assistance Outcome Measures [facility] Daily Living Functional Assessment How much help from another person does the patient currently need: Putting on and taking off regular lower body clothing? 1 Bathing, including washing, rinsing, and drying? 2 Toileting, including using toilet, bedpan or urinal? 1 Putting on and taking off regular upper body clothing? 3 Taking care of personal grooming such as brushing teeth? 3 Eating meals? 3 1=Total/Unable (Total assist/Dependent) 2=A lot (Maximal/Moderate assist) 3=A little (Minimal/Contact guard/Supervision/Setup) 4=None (Modified independent/Independent) The patient's [facility] raw score is 13. The patient currently has 63.03% functional impairment. A raw score of >= 19 is significantly associated with increased odds of discharge to home in addition to consideration made for the patient's cognition and social determinants of health. Activity Tolerance Patient limited with activity/intervention due to pain, weakness, difficulty following commands andlethargy Treatment Pt was found supine in bed upon arrival. Pt appearing lethargic with eyes closed however pt pullingoff telemetry wires, gown, and purewick and stating she needs out of bed. Pt was oriented to self however disoriented x3. Pt re-oriented to place and assisted with donning gown back on. Pt's B UE andLE ROM tested supine in bed. Pt with significant R foot drop and R LE extension. See PT note for for mal R LE ROM testing. Pt's B UE ROM tested listed above in note. Pt was total A x2 supine to sit. Upon coming to EOB, pt required max A for static seated balance secondary to strong posterior lean. Pt sat EOB for ~10 minutes varying between mod-max A for static balance. Pt did have brief moment of min A for balance when RWx was placed in front and pt was using B UE to hold onto RWx. Pt was mod A x2 sit to stand via RWx. Upon standing, pt required max A x2 for static standing balance for ~30 seconds. Pt was max A x2 sit to supine. RN present during session and aware of R LE foot drop. MD then came to bedside and was notified of R LE and pt confusion. Pt was left supine in bed with all needs met and multipodus boots in place for foot drop. Assessment Assessment Pt presents with significant decline in IND with functional mobility/ADLs than at baseline. Pt's son reports ~1-2 weeks ago, pt was completely IND. Pt currently requires x2 assist for all mobility and would likely require increased assistance for all ADLs. Pt would benefit from OT services during LOS. Problems: Difficulty with ADLs, Fall risk, Impaired endurance, Impaired functional mobility, Impaired IADLs, Impaired safety risk, Impaired strength Rehab potential: Good for stated goals Plan Recommendations Discharge recommendations: Discharge recommendations pending progression of acute hospital stay secondary to the patient's medical status DME recommendations: Unable to make adaptive/DME recommendations at this time. Treatment Plan: ADL training, Co-treat with physical therapy, Functional mobility/transfer training, IADL training, Safety training, Strengthening OT Frequency/Duration: 3x/week for 14 days Goals Grooming: grooming with modified independence Toileting: toileting with supervision. Bed mobility: bed mobility with modified independence. Functional transfers: ambulatory transfer with supervision. Target Date: 09/27/2023 Goals were discussed with patient Patient Disposition Upon Leaving Patient disposition upon leaving: Supine in bed, All needs met and within reach, Call light/pull cord in reach, Bed alarm applied If this patient discharges prior to next therapy session, this note serves as the patient's discharge summary. Electronically signed by Janis Guerin OTR/L - 09/13/2023 - 11:31 AM EDT * Myriam Momin, PT - 09/13/2023 9:19 AM EDT Images from the original note were not included. Inpatient Physical Therapy Initial Evaluation Patient Name: Birgit Estrada Date of : 1950 Date of Evaluation: 09/13/23 In Time 0919 Out Time 1005 Session Duration 46 minutes Time spent for nursing collaboration, chart and systems review, and clinical reasoning. 10 minutes Total Time 56 minutes Pt is a 73 y.o. female admitted on 09/12/2023 with Weakness [R53.1]. Pt also s/p fall at home with R hip hematoma, imaging negative for fx addendum: RLE DVT found after PT eval completed Past Medical History: Diagnosis Date ??? Arthritis ??? Hypertension Past Surgical History: Procedure Laterality Date ??? CHOLECYSTECTOMY ??? TONSILLECTOMY ??? TUBAL LIGATION General Visit Type: Initial Evaluation Approved By: Nurse Velásquez Patient Disposition Upon Entry: Supine in bed, Nursing aware/notified, Side rails up, Bed Alarm applied Patient Verified By: Name and Date of Co-treated by: OT Precautions Weight-Bearing Status: Weight Bearing As Tolerated (WBAT), RLE Precautions: Fall risk Isolation Precautions: Standard Lines, tubes, drains, airway: Purewick, telemetry Subjective Subjective: Patient agreeable to physical therapy evaluation and treatment. Pain Yes. 0-10 SCALE Pain location: R hip unable to rate her pain Cognition Overall cognitive status: Impaired Arousal/Alertness: Delayed response to stimuli Lethargic Confused Attention Span: Difficulty attending to directions Difficulty dividing attention Orientation Level: Oriented to place, Oriented to person, Disoriented to time, Disoriented to situation Following commands: Able to follow commands appropriately with tactile cueing Able to follow commands appropriately with verbal cueing Safety Judgment: Decreased awareness of need for assistance Decreased awareness of need for safety Awareness of Errors: Decreased awareness of errors Deficits: Decreased awareness of deficits Home Living Lives with: Spouse Home Type: House Home Layout: One level Stairs to enter: 1 step(s), no handrails Stairs inside home: none Home Equipment: Single point cane, BSC, built-in shower seat Prior to admission, patient and family reports use of the following equipment to perform functionalmobility and daily activities: None Functional Mobility PLOF: Patient reports being independent with all functional mobility prior to onset. Activities of Daily Living PLOF: Patient reports being independent with all ADL's prior to onset. Pt confused and home environment, DME may be unreliable. However, RN called pt's son during sessionon speakerphone and he was able to relay that pt is typically independent prior to fall a week or so ago. 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 Son reports they are actually putting his dad in a SNF today. Objective Basic Strength Assessment Bilateral Lower Extremity Strength: LLE RLE Hip Flexion 2-/5 3-/5 Hip Abduction 2-/5 3-/5 Hip Adduction 2-/5 3-/5 Knee Flexion 2-/5 3/5 Knee Extension 2-/5 3+/5 Ankle Dorsiflexion 0/5 3-/5 Ankle Plantar Flexion 1/5 0/5 Some minimal toe extension noted RLE, but no active ankle dorsiflexion. Range of Motion Assessment WFL LLE RLE ROM: Dorsiflexion: AROM, PROM unable to get R ankle passively to neutral, remains approx. 15-20degrees from neutral even with PROM; L ankle dorsiflexion also limited but not as significant, ableto achieve neutral with PROM on LLE Muscle tone MAS: 3 throughout RLE MAS: 1+ throughout LLE MODIFIED CHIP SCALE (MAS) 0 No increase in muscle tone 1 Slight increase in muscle tone, manifested by a catch and release or by minimal resistance at the end of the range of motion when the affected part(s) is moved in flexion or extension 1+ Slight increase in muscle tone, manifested by a catch, followed by minimal resistance throughout the remainder (less than half) of the ROM 2 More marked increase in muscle tone through most of the ROM, but affected part(s) easily moved 3 Considerable increase in muscle tone, passive movement difficult 4 Affected part(s) rigid in flexion or extension Sensation Unable to reliably test due to pt's impaired cognition and poor alertness Coordination BLE coordination appears impaired, but unable to formally test due to impaired cogniton , decrased alertness and BLE weakness / RLE pain Functional Mobility Bed Mobility Rolling Left: total assistance / dependent Rolling Right: total assistance / dependent Supine to Sit: total assistance / dependent, 2-person assist, HOB flat Sit to Supine: moderate assistance, 2-person assist, HOB flat Bed Scooting: total assistance / dependent, 2-person assist, HOB flat Transfers Sit to Stand: moderate assistance, 2-person assist, gait belt used, rolling walker used Stand to Sit: maximal assistance, 2-person assist, gait belt used, rolling walker used Gait Pt only able to stand approx. 30 sec with poor balance, posture and safety awareness, unable to ambulate. Stair Management Not safe to attempt due to medical condition or safety Wheelchair Mobility Not safe to attempt due to medical condition or safety Outcome Measures AM-PAC Basic Mobility Inpatient Short Form How much difficulty does the patient currently have: Turning over in bed (including adjusting bedclothes, sheets, and blankets)? (1) Total/Unable (not able to do the activity or can only perform the activity using assistive devices or requires assistance from another person, including supervision or cueing for safety) Sitting down on and standing up from a chair with arms (e.g., wheelchair, bedside commode, etc.)? (1) Total/Unable (not able to do the activity or can only perform the activity using assistive devices or requires assistance from another person, including supervision or cueing for safety) Moving from lying on back to sitting on side of bed? (1) Total/Unable (not able to do the activity or can only perform the activity using assistive devices or requires assistance from another person,including supervision or cueing for safety) How much help from another person does the patient currently need: Moving to and from a bed to a chair (including a wheelchair)? (2) A lot (Maximal/Moderate assist) Need to walk in hospital room? (1) Total/Unable (Total assist/dependent) Climbing 3-5 steps with a railing? (1) Total/Unable (Total assist/dependent) Score Raw score=7 t-scale score=26.42 Standard error=4.33 [facility] 0-100%=92.36% MDC=4.72 A raw score of >= 16 is significantly associated with increased odds of discharge to home in addition to consideration made for the patient's cognition and social determinants of health. Balance Static/dynamic sitting and static/dynamic standing balance grades Balance Grade Sitting Static Poor - patient requires handhold support and moderate to maximal assistance to maintain position Sitting Dynamic Poor - patient unable to accept challenge or move without loss of balance Standing Static Poor - patient requires handhold support and moderate to maximal assistance to maintain position Standing Dynamic Poor - patient unable to accept challenge or move without loss of balance Activity Tolerance Patient limited with activity/intervention due to pain, weakness, cognitive impairment and lethargy Treatment Pt assisted supine to sit, sat on EOB ~10 min, primarily needing mod-max A for balance with a posterior lean, but able to briefly sit statically with min A at times once R hand placed on rail and pt assisted with anterior weight shift. Pt attemtped sit to stand, stood ~30 sec, returned to sitting. Pt returned to supine. Pt noted to have significantly decreased ankle dorsiflexion ROM with foot resting in >45 degrees of plantarflexion and BLE noted to have increased muscle tone, but significantly worse on RLE. Pt exhibits very little active movement in RLE, but due to cognition, it is difficult to tell if this is due to pain or true weakness. RLE also appears mildly swollen. Discussed withRN at bedside. MD came in later and this was also discussed with him. Pt fitted with bilateral multipodus boots to help prevent further loss of dorsiflexion ROM in BLEs. Assessment Pt is very weak overall and limited by impaired cognition, decreased alertness. Pt noted to have pain, weakness and increased muscle tone in RLE and also significantly impaired R ankle ROM. Pt was apparently independent with all moblity and ADLs 1-2 weeks ago and typically helps care for her who has dementia. Pt can benefit from continued treatment during LOS to address stated deficits and work toward established goals. Problems: Decreased functional mobility, Decreased gait tolerance, Decreased strength, Decreased activity tolerance, Impaired sitting balance, Impaired standing balance, Impaired dynamic balance, Gait impairment, Postural deviations, Restricted ROM, Pain , Edema, Decreased tolerance to upright posit ioning Rehab potential: Fair Plan Treatment Plan: Therapeutic Exercise, Therapeutic Activity, Gait Training, Transfer Training, Balance Training, Stair Training, Strengthening, Home Exercise Program, ROM, Patient/Family/Caregiver Education, DME Recommendations, Stretching, Co-Treat with OT PT Frequency/Duration: 5x/week for 14 days Recommendations Discharge recommendations: Patient would benefit from 3 hours of intensive multidisciplinary therapy per day to maximize functional outcomes and address functional limitations to return to highest level of functioning. DME recommendations: no needs if discharging to rehab Goals Supine to/from sit: mod I with rail Sit to/from stand: SBA with RWx Gait: 150 ft SBA with RWx Stair Negotiation: 1 stair, no rail min A Target Date: 09/27/2023 Goals were discussed with: pt too confused to discuss goals, no family present Education Patient educated on safety, role of physical therapy, plan of care, transfers, bed mobility, need for assistance and risk for falls and following, they were not able to verbalize and demonstrate understanding. No further questions or concerns stated. Patient Disposition Upon Leaving Supine in bed, Call Light/Pull Cord in reach, All needs met and within reach, Nursing aware/notified, Side rails up, Bed Alarm applied If this patient discharges prior to next therapy session, this note serves as the patient's discharge summary. Electronically signed by Myraim Momin, PT - 09/13/23 - 11:34 AM EDT documented in this encounter H&P Notes * Cornelius Mccarty MD - 09/12/2023 5:53 PM EDT Chief complaint Right hip pain Weakness Muscle spasms hyponatremia History Of Present Illness Birgit Estrada is a 73 y.o. female presenting with muscle spasm This is 73-year-old female admitted at outlying facility because patient was weakness history of fall with right hip pain patient been evaluated there she was found with hyponatremia she started on normal saline at CT chest and head which was negative patient transferred to [facility] to be evaluated by nephrology patient came in blood work ordered started on antibiotic IV fluids regulardiet and pain control Anxious mild distress afebrile HYPONATREMIA SODIUM 123 TODAY IS 119 NOT IMPROVING PT STARTED ON SODIUM TABLETS N/S HANGING PT NEEDS TO BE SEEN BY NEPHROLOGY NO CHANGE IN MENTAL STATUS PT HAS NO SYMPTOMS CXR SHOWS POSSIBLE OPACITY CONCERNING FOR PNEUMONIA ABD CT SCAN COMPLETELY NORMAL CHEST CT SCAN NEG FOR LUNG MALIGNANCY CT HEADNEG Past Medical History She has a past medical history of Arthritis and Hypertension. Surgical History She has a past surgical history that includes Tonsillectomy; Cholecystectomy; and Tubal ligation. Social History She has no history on file for tobacco use, alcohol use, and drug use. Family History No major disease Allergies Patient has no known allergies. Medications Current Outpatient Medications Medication Instructions ??? amLODIPine (NORVASC) 2.5 mg, Oral, Daily ??? ascorbic acid (vitamin C) (ASCORBIC ACID WITH REBECCA HIPS) 500 mg, Oral, Daily ??? aspirin 81 mg, Oral, Daily ??? benazepriL (LOTENSIN) 40 mg, Oral, 2 times daily ??? busPIRone (BUSPAR) 20 mg, Oral, 2 times daily ??? cefdinir (OMNICEF) 300 mg, Oral, 2 times daily ??? escitalopram oxalate (LEXAPRO) 10 mg, Oral, Every morning ??? hydroCHLOROthiazide (HYDRODIURIL) 25 mg, Oral, Daily ??? multivitamin per tablet 1 tablet, Oral, Daily Review of Systems Review of Systems General no fever or chills Head no headache or dizziness Eyes no change in vision Ears no ear ache Nose no epistaxis Throat no sore throat Respiratory shortness of breath and cough cardiac no chest pain GI no nausea or vomiting Urinary no hematuria musculoskeletal right hip pain and muscle spasm Neurological no focal numbness or weakness Skin right hip hematoma General patient in bed mild distress in pain Last Recorded Vitals Blood pressure (!) 144/63, pulse 74, temperature 98.6 ??F (37 ??C), temperature source Oral, resp. rate 16, height 1.6 m (5' 3 ), weight 48.5 kg (107 lb), SpO2 91 %. Physical Exam Head atraumatic normocephalic Pupils round and reactive Eyes no conjunctival injection or discharge Ears no discharge Nose no bleeding or discharge Mouth dry Neck supple forage of motion Chest diminished entry bilaterally no wheezes heart S1 and S2 healed regular rate Abdomen soft audible bowel sounds Extremities bilateral extremity edema with right hip discoloration Neurological patient alert awake move extremities Psychiatric anxiety Skin right hip area discoloration Diagnostic Results No results found for any previous visit. No image results found. Assessment & Plan Active Problems: There are no active Hospital Problems. #1 hyponatremia Patient mid to the hospital from nephrology evaluation will check electrolytes start IV fluid CT of chest done with no apparent malignancy 2 pneumonia patient already on IV Zosyn doxycycline breathing treatment oxygen cultures ordered #3 dehydration patient started on IV fluid #4 anxiety restart Xanax as needed #5 hypertension start hydralazine as needed #6 GI prophylaxis Pepcid #7 right hip hematoma will consult Ortho start pain control #8 DVT prophylaxis No heparin for now patient with possible hematoma Plan discussed with patient with family at bedside chart was reviewed expect length of stay more than 2 midnight expect patient to be discharged home when medically stable Time spent 55 minutes Electronically signed by: Cornelius Mccarty MD, 09/12/2023 at 5:53 PM documented in this encounter Consult Notes * Teodoro Allan PA-C - 09/16/2023 9:13 AM EDTAssociated Order(s): Inpatient consult to Neurosurgery Inpatient consult to Neurosurgery Consult performed by: Teodoro Allan PA-C Consult ordered by: Cornelius Mccarty MD [facility] NEUROSURGERY CONSULT NOTE Primary Care Provider: Provider Not In System History of Present Illness Birgit Estrada is a 73 y.o. female presenting after a fall. Patient reports one minute [she] was in bed and the next [she] was on the floor. According to the patient's chart, she was helping her , who has Lewy body disease, get dressed in the morning of September 04 and fell, though none of this information was confirmed by the patient during my visit. Patient hit bilateral hips at the time of the fall and brought to the ED. Patient denies low back pain or pain distally to thighs. Patient denies numbness or tingling to bilateral lower extremities. Patient reports weakness to her bilateral lower extremities, though onset is unknown. Patient was reportedly walking prior to September 10. Patient reports she has chronic back pain, which is worse with standing. Patient reports she receives relief while leaning onto surfaces. Patient denies back pain at any point during her current hospital stay. Patient denies changes to gait or dexterity in the recent history prior to fall. Patient reports she falls maybe once a month. Unable to recall why she fell a week and half ago. Review of Systems Review of Systems Constitutional: Negative for fever. HENT: Negative. Eyes: Negative. Respiratory: Negative for shortness of breath. Cardiovascular: Positive for leg swelling. Gastrointestinal: Negative. Musculoskeletal: Positive for falls. Back pain: Chronic back pain, but none at the moment. Pain to bilateral thighs and hips. No pain distal to knees. Skin: Bruising to bilateral lateral hips and thighs secondary to fall. Neurological: Positive for weakness (Bilateral lower extremities. ). Negative for dizziness, tingling, sensory change and loss of consciousness. Past Medical History She has a past medical history of Arthritis and Hypertension. Past Surgical History She has a past surgical history that includes Tonsillectomy; Cholecystectomy; and Tubal ligation. Family History She family history is not on file. Allergies Patient has no known allergies. Medications Medications Prior to Admission Medication Sig Dispense Refill Last Dose ??? amLODIPine (NORVASC) 2.5 MG tablet Take 1 tablet (2.5 mg total) by mouth daily. Past Week ??? benazepriL (LOTENSIN) 40 MG tablet Take 1 tablet (40 mg total) by mouth 2 (two) times daily. Past Week ??? busPIRone (BUSPAR) 10 MG tablet Take 2 tablets (20 mg total) by mouth 2 (two) times daily. PastWeek ??? cefdinir (OMNICEF) 300 MG capsule Take 1 capsule (300 mg total) by mouth 2 (two) times daily X 7 days. Past Week ??? escitalopram oxalate (LEXAPRO) 10 MG tablet Take 1 tablet (10 mg total) by mouth every morning.Past Week ??? hydroCHLOROthiazide (HYDRODIURIL) 25 MG tablet Take 1 tablet (25 mg total) by mouth daily. PastWeek ??? multivitamin per tablet Take 1 tablet by mouth daily. Past Week ??? ascorbic acid, vitamin C, (ascorbic acid with rebecca hips) 500 MG tablet Take 1 tablet (500 mg total) by mouth daily. ??? aspirin 81 MG chewable tablet Take 1 tablet (81 mg total) by mouth daily. Vitals Blood pressure (!) 157/72, pulse 80, temperature 98.1 ??F (36.7 ??C), temperature source Oral, resp. rate 16, height 1.6 m (5' 3 ), weight 48.5 kg (107 lb), SpO2 95 %. Physical Exam HENT: Head: Normocephalic and atraumatic. Right Ear: External ear normal. Left Ear: External ear normal. Mouth/Throat: Mouth: Mucous membranes are moist. Eyes: Extraocular Movements: Extraocular movements intact. Cardiovascular: Rate and Rhythm: Normal rate. Pulmonary: Effort: Pulmonary effort is normal. Abdominal: General: Abdomen is flat. Musculoskeletal: Cervical back: Normal range of motion. Comments: Difficulty evaluating lower extremity strength. Patient was unable to tolerate hip and knee flexion/extension due to pain elicited in hips/thighs. Patient had limited strength to dorsiflexion and plantar flexion bilaterally; 3- 4 out of 5 noted. Patient struggled to describe where her painwas located on several attempts. Pain to palpation of lateral thighs and hips. Skin: General: Skin is warm. Findings: Bruising (Bilateral bruising to hips and thighs, dark purple and green in appearance. ) present. Neurological: Mental Status: She is alert. Motor: Weakness (Noted in musculoskeletal exam.) present. Comments: Patient unable to recall events of fall as noted by son on hospital admission. Baseline unknown. Relevant Results NONINFUSED LUMBAR SPINE MRI ?? HISTORY: Severe hip pain and leg weakness. ?? FINDINGS: On the sagittal images, mild decreased signal is identified throughout the lumbar discs. Vertebrae are of normal height. No malalignment is seen. ?? L1-2: No disc bulge or protrusion. ?? L2-3: No disc bulge or protrusion. ?? L3-4: Mild to moderate diffuse disc bulge is present. Small posterolateral disc protrusions are present. There is mild to moderate bilateral neural foraminal narrowing. ?? Moderate hypertrophic changes are seen at the facet joints bilaterally. ?? L4-5: Mild to moderate diffuse disc bulge is present. Small posterolateral disc protrusions are present. There is mild to moderate bilateral neural foraminal narrowing. Moderate hypertrophic changes are seen at the facet joints bilaterally. ?? L5-S1: No significant disc bulge or protrusion. ?? IMPRESSION: 1. Posterolateral disc protrusions L3-4 and L4-5 with bilateral facet hypertrophy. Mild to moderate bilateral neural foraminal compromise. 2. No evidence of acute osseous abnormality. ? NONINFUSED THORACIC SPINE MRI ?? HISTORY: Back pain. ?? FINDINGS: On the sagittal images, abnormal decreased signal is identified throughout the thoracic discs. Vertebrae are of normal height. No malalignment is seen. Thoracic cord demonstrates normal signal and configuration. ?? On the axial images, there is no evidence of significant disc bulge or protrusion. ?? Incidental note is made of moderate bilateral pleural effusions. ?? IMPRESSION: 1. Diffuse changes of degenerative disc disease, without evidence of significant spinal or neural foraminal compromise. 2. No evidence of acute osseous abnormality. 3. Moderate bilateral pleural effusions. ? Images reviewed, interpreted, and dictated by Jose Barnes MD HEAD CT 09/13/2023 10:47 AM ?? HISTORY: Acute headache. ?? COMPARISON: None. ?? TECHNIQUE: Multiple axial CT images were performed from the foramen magnum to the vertex. This study was performed with techniques to keep radiation doses as low as reasonably achievable, (ALARA). Individualized dose reduction techniques using automated exposure control or adjustment of mA and/or kV according to the patient size were employed. ?? FINDINGS: The ventricles are normal in size. There is no evidence of hemorrhage. No masses are identified. No extra-axial fluid is seen. The sinuses demonstrate right sphenoid opacification. ?? IMPRESSION: No acute intracranial process. ?? Images reviewed, interpreted, and dictated by Jairo Acosta MD Assessment/Plan Weakness does not correlate to MRI thoracic and lumbar. Neurology obtaining MRI brain and cervical spine. Will follow for results and make formal recommendations at that time. Signed: Electronically signed by TEODORO ALLAN PA-C 09/16/23 9:13 AM EDT Cosigned by Bossman Godinez MD at 09/21/2023 10:19 AM EDT * Catherine Aguirre MD - 09/16/2023 8:03 AM EDTAssociated Order(s): Inpatient consult to Pulmonology Inpatient consult to Pulmonology Consult performed by: Susie Majano PA-C Consult ordered by: Cornelius Mccarty MD PULMONARY AND CRITICAL CARE Consult Note Date of Service: 09/16/2023 Time: 8:03 AM Referring physician: Dr. Mccarty Reason for Consult: Pleural effusions CC: I want to get out of here. HPI: This is a 73 y.o. year old female with past medical history significant for arthritis and hypertension. Patient presented to OSH due to right sided hip pain after a fall at home. Patient was found tohave hematoma of right hip and was also hyponatremic. Per chart, CT head and chest were both negative. Patient was transferred to [facility] for nephrology consult. CXR on 09/11 was negative for acute cardiopulmonary process. X-ray of pelvis was negative for hip fracture. On 09/12, LE Doppler of the legs waspositive for acute DVT in the peroneal and soleal veins. She was evaluated by vascular surgery and placed on Lovenox 1mg/kg. She is followed by ID and is currently on Rocephin and doxycycline. No positive cultures at this time. CT abdomen and pelvis on 09/13 show small right and moderate left pleuraleffusion and bibasilar consolidation, extensive anasarca and mild ascites. Pulmonary is consulted for bilateral pleural effusions. At time of consult, patient is resting comfortably in bed on room air. She denies cough or shortness of breath. PAST MEDICAL HISTORY: Past Medical History: Diagnosis Date ??? Arthritis ??? Hypertension PAST SURGICAL HISTORY: Past Surgical History: Procedure Laterality Date ??? CHOLECYSTECTOMY ??? TONSILLECTOMY ??? TUBAL LIGATION Allergies: No Known Allergies SOCIAL HISTORY: FAMILY HISTORY: family history is not on file. Review of Systems Constitutional: Positive for malaise/fatigue. Negative for chills and fever. HENT: Negative. Respiratory: Negative for cough, sputum production and shortness of breath. Cardiovascular: Negative. Gastrointestinal: Negative. Musculoskeletal: Negative. Neurological: Negative. Psychiatric/Behavioral: Negative. Vital Signs Temp: [97.7 ??F (36.5 ??C)-98.6 ??F (37 ??C)] 98.1 ??F (36.7 ??C) Pulse: [72-89] 80 Resp: [16-18] 16 BP: (112-174)/(48-77) 157/72 Current: Temp: 98.1 ??F (36.7 ??C) Pulse: 80 Resp: 16 BP: (!) 157/72 SpO2: 95 % 24 Hour: BP Min: 112/48 Max: 174/77 Temp Min: 97.7 ??F (36.5 ??C) Max: 98.6 ??F (37 ??C) Pulse Min: 72 Max: 89 Resp Min: 16 Max: 18 SpO2 Min: 95 % Max: 100 % Intake/Output: I/O last 3 completed shifts: In: - Out: 1800 [Urine:1800] Physical Exam Constitutional: General: She is not in acute distress. Comments: Elderly HENT: Head: Normocephalic. Nose: Nose normal. Mouth/Throat: Mouth: Mucous membranes are moist. Eyes: Pupils: Pupils are equal, round, and reactive to light. Cardiovascular: Rate and Rhythm: Normal rate and regular rhythm. Pulmonary: Effort: Pulmonary effort is normal. Breath sounds: No wheezing or rhonchi. Abdominal: General: Abdomen is flat. Palpations: Abdomen is soft. Musculoskeletal: Cervical back: Neck supple. Right lower leg: Edema present. Left lower leg: Edema present. Comments: Bruising to right hip and upper leg Skin: General: Skin is warm and dry. Coloration: Skin is pale. Neurological: General: No focal deficit present. Mental Status: She is alert and oriented to person, place, and time. Psychiatric: Mood and Affect: Mood normal. Vent / O2 Management: LABS Results for orders placed or performed during the hospital encounter of 09/12/23 (from the past 24 hour(s)) Sodium Status: Abnormal Collection Time: 09/15/23 8:08 AM Result Value Ref Range Sodium 126 (L) 136 - 146 meq/L Glucose, Nova Meter Status: None Collection Time: 09/15/23 10:36 AM Result Value Ref Range POC-GLUCOSE 107 70 - 110 mg/dL [employer] [id number] Sodium Status: Abnormal Collection Time: 09/15/23 1:25 PM Result Value Ref Range Sodium 124 (L) 136 - 146 meq/L Sodium Status: Abnormal Collection Time: 09/15/23 5:15 PM Result Value Ref Range Sodium 126 (L) 136 - 146 meq/L Sodium Status: Abnormal Collection Time: 09/15/23 9:12 PM Result Value Ref Range Sodium 125 (L) 136 - 146 meq/L CBC - Hemogram (SJ-BKR) Status: Abnormal Collection Time: 09/16/23 2:20 AM Result Value Ref Range WBC 15.0 (H) 4.0 - 10.0 K/??L RBC 2.74 (L) 3.93 - 5.22 M/??L Hemoglobin 8.1 (L) 11.2 - 15.7 GM/DL Hematocrit 23.5 (L) 34.1 - 44.9 % MCV 86 79 - 95 fL MCH 29.6 25.6 - 32.2 pg MCHC 34.5 32.2 - 35.5 GM/DL RDW 13.8 11.7 - 14.4 % Platelets 259 140 - 375 K/CU MM MPV 10.6 9.4 - 12.3 fL Basic Metabolic Panel Status: Abnormal Collection Time: 09/16/23 2:21 AM Result Value Ref Range Sodium 125 (L) 136 - 146 meq/L Potassium 4.3 3.5 - 5.1 meq/L Chloride 92 (L) 102 - 112 meq/L CO2 29 21 - 32 meq/L Anion Gap 8 (L) 9 - 20 BUN 16 7 - 22 mg/dL Creatinine 0.69 0.55 - 1.02 mg/dL BUN/Creatinine 23 (H) 8 - 20 Glucose 106 74 - 106 mg/dL Calcium 8.6 8.4 - 10.1 mg/dL Osmolality Calc 253.1 eGFR (mL/min/1.73m2) >60 >=60 mL/min/1.73m2 Ammonia Status: Abnormal Collection Time: 09/16/23 2:21 AM Result Value Ref Range Ammonia <10 (L) 11 - 32 ??mol/L Creatine Kinase (CK) Status: Abnormal Collection Time: 09/16/23 2:21 AM Result Value Ref Range Total CK 2,217 (H) 26 - 192 U/L TSH with Reflex FT4 Status: Normal Collection Time: 09/16/23 2:21 AM Result Value Ref Range TSH 2.500 0.358 - 3.740 uIU/mL Radiology Radiology Results (last day) Procedure Component Value Units Date/Time MR thoracic spine without IV contrast [[id number]] Collected: 09/15/23 1252 Order Status: Completed Updated: 09/15/23 1333 Narrative: Name: BIRGIT ESTRADA : 1950 NONINFUSED LUMBAR SPINE MRI HISTORY: Severe hip pain and leg weakness. FINDINGS: On the sagittal images, mild decreased signal is identified throughout the lumbar discs. Vertebrae are of normal height. No malalignment is seen. L1-2: No disc bulge or protrusion. L2-3: No disc bulge or protrusion. L3-4: Mild to moderate diffuse disc bulge is present. Small posterolateral disc protrusions are present. There is mild to moderate bilateral neural foraminal narrowing. Moderate hypertrophic changes are seen at the facet joints bilaterally. L4-5: Mild to moderate diffuse disc bulge is present. Small posterolateral disc protrusions are present. There is mild to moderate bilateral neural foraminal narrowing. Moderate hypertrophic changes are seen at the facet joints bilaterally. L5-S1: No significant disc bulge or protrusion. Impression: 1. Posterolateral disc protrusions L3-4 and L4-5 with bilateral facet hypertrophy. Mild to moderate bilateral neural foraminal compromise. 2. No evidence of acute osseous abnormality. NONINFUSED THORACIC SPINE MRI HISTORY: Back pain. FINDINGS: On the sagittal images, abnormal decreased signal is identified throughout the thoracic discs. Vertebrae are of normal height. No malalignment is seen. Thoracic cord demonstrates normal signal and configuration. On the axial images, there is no evidence of significant disc bulge or protrusion. Incidental note is made of moderate bilateral pleural effusions. IMPRESSION: 1. Diffuse changes of degenerative disc disease, without evidence of significant spinal or neural foraminal compromise. 2. No evidence of acute osseous abnormality. 3. Moderate bilateral pleural effusions. Images reviewed, interpreted, and dictated by Jose Barnes MD MR spine lumbar without IV contrast [[id number]] Collected: 09/15/23 1252 Order Status: Completed Updated: 09/15/23 1333 Narrative: Name: BIRGIT ESTRADA : 1950 NONINFUSED LUMBAR SPINE MRI HISTORY: Severe hip pain and leg weakness. FINDINGS: On the sagittal images, mild decreased signal is identified throughout the lumbar discs. Vertebrae are of normal height. No malalignment is seen. L1-2: No disc bulge or protrusion. L2-3: No disc bulge or protrusion. L3-4: Mild to moderate diffuse disc bulge is present. Small posterolateral disc protrusions are present. There is mild to moderate bilateral neural foraminal narrowing. Moderate hypertrophic changes are seen at the facet joints bilaterally. L4-5: Mild to moderate diffuse disc bulge is present. Small posterolateral disc protrusions are present. There is mild to moderate bilateral neural foraminal narrowing. Moderate hypertrophic changes are seen at the facet joints bilaterally. L5-S1: No significant disc bulge or protrusion. Impression: 1. Posterolateral disc protrusions L3-4 and L4-5 with bilateral facet hypertrophy. Mild to moderate bilateral neural foraminal compromise. 2. No evidence of acute osseous abnormality. NONINFUSED THORACIC SPINE MRI HISTORY: Back pain. FINDINGS: On the sagittal images, abnormal decreased signal is identified throughout the thoracic discs. Vertebrae are of normal height. No malalignment is seen. Thoracic cord demonstrates normal signal and configuration. On the axial images, there is no evidence of significant disc bulge or protrusion. Incidental note is made of moderate bilateral pleural effusions. IMPRESSION: 1. Diffuse changes of degenerative disc disease, without evidence of significant spinal or neural foraminal compromise. 2. No evidence of acute osseous abnormality. 3. Moderate bilateral pleural effusions. Images reviewed, interpreted, and dictated by Jose Barnes MD Microbiology: Microbiology Results (last 7 days) Procedure Component Value Units Date/Time Blood Culture Antecubital, Right [[id number]] Collected: 09/12/23 1806 Order Status: Completed Specimen: Blood from Antecubital, Right Updated: 09/16/23 0101 Result No growth in 3 days Blood Culture Forearm, Left [[id number]] Collected: 09/12/23 1814 Order Status: Completed Specimen: Blood from Forearm, Left Updated: 09/16/23 0101 Result No growth in 3 days Urine Culture [[id number]] Collected: 09/12/23 2210 Order Status: Completed Specimen: Urine, Clean Catch Updated: 09/15/23 0858 Result No growth ASSESSMENT: Pulmonary On room air Small right and moderate left pleural effusion Bibasilar consolidation Never a smoker Vascular DVT in right peroneal vein and soleal vein Renal Hyponatremia. Sodium 125 ID Possible UTI Cultures negative so far Leukocytosis MSK S/P fall at home with hematoma to right hip, no fracture PLAN: Keep oxygen saturation above 90%. Patient is fatigued due to recent fall. She is not interested to stay in the hospital and little depressed. Communication occurred with the patient but mostly with her daughter at bedside Were we consulted for bibasilar atelectasis and bilateral pleural effusion worse on the left side; pleural effusion likely due to volume resuscitation. Few days ago she had CT scan of the abdomen andthe lung windows included lung bases did not show any effusion. Since that effusion developed in the last 2 days due to volume resuscitation and immobility. Suggest to use incentive spirometry and flu tter valve. PT/OT when okayed by Ortho. No indication for intervention at this time. Repeat chest x-ray in few days. No intervention needed If oxygen requirement increases please do not hesitate to call us Full anticoagulation for DVT I have personally evaluated the patient; history and review of systems, physical examination, laboratory studies and radiology data. I have actively directed the medical care, formulated diagnosis and plan and discussed it with our team. Chest imaging reviewed independent of the radiologist report. DNR/DNI Complex case Catherine Aguirre MD Thank you for the consultation. Will sign off. 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 female with PMH significant for has a past medical history of Arthritisand Hypertension. Patient was transferred to [facility] on 09/12/2023 from [facility].Patient reports she had a fall approximately around September 04 at home and hit her right hip, was taken to [facility] in For 24 hours then released. Patient returned to [facility] on September 06 and was readmitted, still with hyponatremia. Patient was transferred to [facility] for higher level of care. Bilateral lower extremity Doppler revealed right lower extremity DVT. Patient has had some ongoing confusion and right leg weakness, neurology was consulted. CT abdomen/pelvis shows small right and moderate left pleural effusion, bibasilar consolidation, extensive anasarca, mild ascites and right psoas intramuscular hematoma. CT brain with no acute abnormality. Palliative Care was consulted to assist with GOC and ACP in the context of complex medical decisionmaking. Patient is seen and examined at bedside, she is awake, alert and oriented x 3. Her son Berna and her [id number] Autumn are at bedside. Patient is eating a few bites of lites, she reports intermittent pain in her right hip area which is greatly helped by as needed oxycodone. She does endorse weakness of the right lower extremity in comparison to the left lower extremity. She does report some constipation reporting that she uses MiraLAX at home and it has been approximately 7 days since her last bowel movement. She denies any recent fever, cough, chest pain, shortness of breath, abdominal pain, dysuria, nausea or vomiting. ESAS (0-10 scale): Pain: Intermittent, 2-6/10 Dyspnea: Nausea: Insomnia: Constipation: Anxiety: Agitation: Depression: Fatigue: Well-being: Appetite: Drowsy: ROS CONSTITUTIONAL: No fevers, chills, sweats, mild loss of appetite, +weakness EYE: No recent visual problems ENMT: No ear pain, nasal congestion, sore throat RESPIRATORY: No current shortness of breath, hemoptysis, cough CARDIOVASCULAR: No chest pain, no palpitations or syncope GASTROINTESTINAL: No nausea, vomiting, diarrhea, melena, + constipation GENITOURINARY: No hematuria, dysuria NEAL/LYMPH:Negative for bruising tendency, swollen lymph glands MUSCULOSKELETAL: + Right hip pain, no back pain, neck pain, joint pain, or spasms, right lower extremity weakness INTEGUMENTARY: No rash, pruritis, abrasions NEUROLOGICAL: No confusion, denies focal weakness or numbness PSYCHIATRIC: No sadness, anxiety Past Medical History: Past Medical History: Diagnosis Date ??? Arthritis ??? Hypertension Past Surgical History Past Surgical History: Procedure Laterality Date ??? CHOLECYSTECTOMY ??? TONSILLECTOMY ??? TUBAL LIGATION Family History: family history is not on file. Social History: Social History Socioeconomic History ??? Marital status: Spouse name: Not on file ??? Number of children: Not on file ??? Years of education: Not on file ??? Highest education level: Not on file Occupational History ??? Not on file Tobacco Use ??? Smoking status: Not on file ??? Smokeless tobacco: Not on file Substance and Sexual Activity ??? Alcohol use: Not on file ??? Drug use: Not on file ??? Sexual activity: Not on file Other Topics Concern ??? Not on file Social History Narrative ??? Not on file Social Determinants of Health Financial Resource Strain: Low Risk (09/14/2023) Financial Resource Strain ??? : 0 Food Insecurity: No Food Insecurity (09/14/2023) Food Insecurity ??? : 0 ??? : 0 Transportation Needs: No Transportation Needs (09/14/2023) Transportation Needs ??? : 0 Physical Activity: Inactive (09/12/2023) Physical Activity ??? : 0 Stress: Not on file Social Connections: Low Risk (09/14/2023) Family and Community Support ??? : 0 ??? : 0 Intimate Partner Violence: Not on file Housing Stability: Low Risk (09/14/2023) Housing Stability ??? : 0 ??? : 0 Allergies: Patient has no known allergies. Medications: Medications Prior to Admission Medication Sig Dispense Refill Last Dose ??? amLODIPine (NORVASC) 2.5 MG tablet Take 1 tablet (2.5 mg total) by mouth daily. Past Week ??? benazepriL (LOTENSIN) 40 MG tablet Take 1 tablet (40 mg total) by mouth 2 (two) times daily. Past Week ??? busPIRone (BUSPAR) 10 MG tablet Take 2 tablets (20 mg total) by mouth 2 (two) times daily. PastWeek ??? cefdinir (OMNICEF) 300 MG capsule Take 1 capsule (300 mg total) by mouth 2 (two) times daily X 7 days. Past Week ??? escitalopram oxalate (LEXAPRO) 10 MG tablet Take 1 tablet (10 mg total) by mouth every morning.Past Week ??? hydroCHLOROthiazide (HYDRODIURIL) 25 MG tablet Take 1 tablet (25 mg total) by mouth daily. PastWeek ??? multivitamin per tablet Take 1 tablet by mouth daily. Past Week ??? ascorbic acid, vitamin C, (ascorbic acid with rebecca hips) 500 MG tablet Take 1 tablet (500 mg total) by mouth daily. ??? aspirin 81 MG chewable tablet Take 1 tablet (81 mg total) by mouth daily. Medications Scheduled Medication Ordered Dose/Rate, Route, Frequency Last Action cefTRIAXone (ROCEPHIN) 2 g in sodium chloride 0.9 % (NS) MBP 50 mL IVPB 2 g, IV, Q24H IVPB Stopped,09/12 1324 doxycycline (VIBRAMYCIN) 100 mg in sodium chloride 0.9 % (NS) MBP 100 mL IVPB 100 mg, IV, Q12H IVPBStopped, 09/13 1035 enoxaparin (LOVENOX) syringe 50 mg 1 mg/kg, SubQ, Q12H Given, 50 mg at 09/13 0850 famotidine (PEPCID) tablet 20 mg 20 mg, Oral, BID Given, 20 mg at 09/13 0850 PRN Medication Ordered Dose/Rate, Route, Frequency Last Action acetaminophen (TYLENOL) tablet 650 mg 650 mg, Oral, Q6H PRN Ordered ALPRAZolam (XANAX) tablet 0.5 mg 0.5 mg, Oral, Q4H PRN Given, 0.5 mg at 09/13 2339 cloNIDine HCL (CATAPRES) tablet 0.1 mg 0.1 mg, Oral, Q8H PRN Ordered cyclobenzaprine (FLEXERIL) tablet 10 mg 10 mg, Oral, TID PRN Given, 10 mg at 09/12 2151 docusate sodium (COLACE) capsule 100 mg 100 mg, Oral, BID PRN Ordered hydrALAZINE (APRESOLINE) injection 10 mg 10 mg, IV, Q4H PRN Given, 10 mg at 09/12 003 ipratropium-albuteroL (DUO-NEB) 0.5-2.5 (3) mg/3 mL nebulizer solution 3 mL 3 mL, nebu, Q4H PRN Ordered melatonin tablet 6 mg 6 mg, Oral, Every Night PRN Given, 6 mg at 09/12 2028 morphine injection 2 mg 2 mg, IV, Q4H PRN Given, 2 mg at 09/12 0205 ondansetron (ZOFRAN-ODT) disintegrating tablet 4 mg (Or Linked Group #1) 4 mg, Oral, Q8H PRN Ordered ondansetron PF (ZOFRAN) injection 4 mg (Or Linked Group #1) 4 mg, IV, Q8H PRN Ordered oxyCODONE (ROXICODONE) immediate release tablet 5 mg 5 mg, Oral, Q4H PRN Given, 5 mg at 09/13 0556 polyethylene glycol (GLYCOLAX) packet 17 g 17 g, Oral, Daily PRN Ordered sodium chloride 0.9% (NS) flush 10 mL (And Linked Group #2) 10 mL, IV, PRN Ordered PRN Medications-Doses/24hours: Pain: Morphine 2 mg IV x 1, oxycodone 5 mg x 4 since midnight yesterday. Anxiety/Agitation: Dyspnea: Nausea: Current medications type, dosing, route and frequency has been reviewed. Objective Vitals/I&O Vitals: 09/13/23 2147 BP: Pulse: Resp: Temp: SpO2: 94% No intake or output data in the 24 hours ending 09/14/23 1124 Physical Exam GENERAL: Acute on Chronically ill appearing, NAD, on room air HEENT: NC/AT, PERRLA, EOMI, conjunctivae not injected, sclerae not icteric, MMM NECK: trachea midline, no lymphadenopathy or thyromegaly, no JVD, supple HEART/CHEST: S1 and S2 normal, no murmur, gallop, or rub LUNGS: breath sounds equal bilaterally, no wheezing/crackles/rhonchi, respirations symmetric and nonlabored ABDOMEN: BS present, soft, nondistended, not tender to palpation, no organomegaly EXTREMITIES: no cyanosis, clubbing, or edema, +pulses SKIN: No rash/mottling NEURO: oriented x3, moves extremities x4 PSYCH: pleasant and cooperative Relevant Results: Results for orders placed or performed during the hospital encounter of 09/12/23 (from the past 24 hour(s)) Glucose, Nova Meter Status: None Collection Time: 09/13/23 11:44 AM Result Value Ref Range POC-GLUCOSE 94 70 - 110 mg/dL [employer]ating [employer] [id number] Basic Metabolic Panel Status: Abnormal Collection Time: 09/13/23 12:34 PM Result Value Ref Range Sodium 124 (L) 136 - 146 meq/L Potassium 4.2 3.5 - 5.1 meq/L Chloride 91 (L) 102 - 112 meq/L CO2 28 21 - 32 meq/L Anion Gap 9 9 - 20 BUN 24 (H) 7 - 22 mg/dL Creatinine 0.94 0.55 - 1.02 mg/dL BUN/Creatinine 26 (H) 8 - 20 Glucose 98 74 - 106 mg/dL Calcium 8.4 8.4 - 10.1 mg/dL Osmolality Calc 253.7 eGFR (mL/min/1.73m2) >60 >=60 mL/min/1.73m2 Osmolality, serum Status: None Collection Time: 09/13/23 12:34 PM Result Value Ref Range Osmolality Serum 261 mOsm/kg Sodium Status: Abnormal Collection Time: 09/13/23 12:34 PM Result Value Ref Range Sodium 125 (L) 136 - 146 meq/L Glucose, Nova Meter Status: None Collection Time: 09/13/23 5:02 PM Result Value Ref Range POC-GLUCOSE 108 70 - 110 mg/dL [employer]er [id number] Sodium Status: Abnormal Collection Time: 09/13/23 11:14 PM Result Value Ref Range Sodium 125 (L) 136 - 146 meq/L CBC w Manual Diff (SJ-BKR) Status: Abnormal Collection Time: 09/14/23 2:48 AM Result Value Ref Range WBC 13.4 (H) 4.0 - 10.0 K/??L RBC 2.69 (L) 3.93 - 5.22 M/??L Hemoglobin 7.9 (L) 11.2 - 15.7 GM/DL Hematocrit 22.4 (L) 34.1 - 44.9 % MCV 83 79 - 95 fL MCH 29.4 25.6 - 32.2 pg MCHC 35.3 32.2 - 35.5 GM/DL RDW 12.8 11.7 - 14.4 % Platelets 180 140 - 375 K/CU MM MPV 11.0 9.4 - 12.3 fL Lactic acid () Status: Normal Collection Time: 09/14/23 2:48 AM Result Value Ref Range Lactic Acid Level (mmol/L) 0.9 0.4 - 2.0 mmol/L Manual Differential Status: Abnormal Collection Time: 09/14/23 2:48 AM Result Value Ref Range Total Counted 100 % Neutros (manual) 84 (H) 50 - 65 % % Lymphs (manual) 12 (L) 24 - 44 % % Monos (manual) 4 4 - 5 % Platelet Estimate Adequate Adequate ANC# 11.26 K/??L Comprehensive metabolic panel Status: Abnormal Collection Time: 09/14/23 2:49 AM Result Value Ref Range Sodium 124 (L) 136 - 146 meq/L Potassium 4.1 3.5 - 5.1 meq/L Chloride 94 (L) 102 - 112 meq/L CO2 24 21 - 32 meq/L Calcium 8.0 (L) 8.4 - 10.1 mg/dL Glucose 103 74 - 106 mg/dL BUN 22 7 - 22 mg/dL Creatinine 0.80 0.55 - 1.02 mg/dL BUN/Creatinine 28 (H) 8 - 20 Albumin 2.3 (L) 3.4 - 5.0 g/dL Alkaline Phosphatase 36 27 - 136 U/L ALT 213 (H) 13 - 56 U/L AST 308 (H) 5 - 37 U/L Total Bilirubin 0.9 0.2 - 1.2 mg/dL Protein, Total 4.5 (L) 6.4 - 8.2 gm/dL Anion Gap 10 9 - 20 A/G Ratio 1.0 (L) 1.1 - 2.5 Globulin 2.2 1.5 - 4.5 g/dL Osmolality Calc 253.2 eGFR (mL/min/1.73m2) >60 >=60 mL/min/1.73m2 Vitamin B12 Status: Normal Collection Time: 09/14/23 2:49 AM Result Value Ref Range Vitamin B12 560 193 - 986 pg/mL Folate, Serum Status: Normal Collection Time: 09/14/23 2:49 AM Result Value Ref Range Folate 14.60 3.10 - 17.50 ng/mL No results found for: URINALYSIS , URINECULTURE No results found for: LABA1C , LABPT , LABINR , TROPONINI , LACTICACID CT ABDOMEN/PELVIS WITHOUT IV CONTRAST Standard Protocol Narrative: CT SCAN OF THE ABDOMEN AND PELVIS WITHOUT CONTRAST 09/14/2023 9:24 AM HISTORY: Epigastric pain COMPARISON: None. PROCEDURE: Axial images were obtained from the lung bases to the pubic symphysis by computed tomography. This study was performed with techniques to keep radiation doses as low as reasonably achievable, (ALARA). Individualized dose reduction techniques using automated exposure control or adjustment of mA and/or kV according to the patient size were employed. FINDINGS: ABDOMEN: There is a small right and moderate left pleural effusion. There is bibasilar consolidation. Post cholecystectomy. There is no hydronephrosis or nephrolithiasis. There is extensive anasarca. There is no significant free fluid or adenopathy. The solid organs are otherwise unremarkable. PELVIS: There is extensive anasarca. There is mild ascites. The urinary bladder is unremarkable. The appendix is normal. The right psoas muscle is mildly enlarged. There is increased density within the right psoas musculature consistent with intramuscular hematoma. Impression: Pleural effusions and bibasilar consolidation. Follow up to resolution recommended. Extensive anasarca but particularly in the pelvis. Mild ascites of uncertain etiology. Mild enlargement and heterogeneity in the lower right psoas muscle consistent with intramuscular hematoma. Images reviewed, interpreted, and dictated by Jairo Acosta MD Echo Results (last 7 days) No results found for the last 168 hours. Results have been reviewed. Assessment: Patient Active Problem List Diagnosis ??? Weakness Impression: Hyponatremia HTN Anemia Altered mental status Right leg weakness Fall with right hip psoas hematoma Right lower extremity DVT Symptoms: Altered mental status, improving Constipation-added scheduled Miralax and Senna Right leg weakness Right Hip pain-prn oxy/morphine Plan: Patient is to Berna. She has 1 adult living son also named Berna. Her son eBrna [id number] Autumn are at bedside today. Patient/son reports she does have a living will but hasnot provided to facility. Introduction of palliative care services. Discussed patient's CODE STATUS in detail including full code versus DNR/I/full treat. Patient reports that she does have a living will that states she does not want extreme aggressive measures to sustain life such as tracheostomy and PEG tube placement. However, she states that she would like to leave her CODE STATUS as FULL for now and will discuss this further with her family. Education done with patient should she decide to change this to a DNR/full treat she would simply need to notify hernurse who will then notify her attending physician. Patient is requesting for MiraLAX to be restarted, and then states with an extra dose to get me going . Thank you for allowing us to participate in patients plan of care, Palliative Care will continue tofollow. Electronically signed by Lorie Berry APRN 09/14/2023 11:24 AM Voice paraprofessional education assistant technology ([employer]) is used for dictation of this note and sound-alike words might be erroneously placed despite reviewing the note for accuracy. Errors in dictation may reflect use of voice recognition software and not all errors in paraprofessional education assistant may have been detected prior to signing Cosigned by Stephanie Moyer MD at 09/20/2023 9:31 AM EDT Associated attestation - Stephanie Moyer MD - 09/20/2023 8:31 AM CDT This patient was seen and evaluated by [facility]. I have not examined the patient, formulated plan of care, or discussed this patient's care on this day of service. Cosignature per institutional policy. Stephanie Moyer MD Palliative Care Physician * Nathaniel Wakefield MD - 09/13/2023 9:25 PM EDTAssociated Order(s): Inpatient consult to Neurology Inpatient consult to Neurology Consult performed by: Syed Wakefield MD Consult ordered by: Cornelius Mccarty MD Reason for consult: encephalopathy , right leg weakness History of Present Illness: Birgit Estrada is a 73 y.o. female with a history of hypertension and depression who was transferred to our hospital from the inpatient service at [facility] yesterday for further evaluation of hyponatremia. I have been asked to evaluate the patient for confusion and right leg weakness. The patient tells me that she was in her usual state of mixed health until about 8 days ago when apparently she fell at home and hit her right hip. Apparently, she was taken to [facility] and kept for 24 hours and then released according to her. Then she reappeared to [facility] on September 06 and was readmitted apparently still had hyponatremia. She was transferred here with her sodium being 124. Nephrology is seeing the patient. The patient apparently has been noted by staff to be confused but the patient denies confusion. Also staff has noticed that she has weakness in her legs particular her right leg and she has been found to have a DVT of her right leg and has been started on therapeutic Lovenox today. The orthopedic service is also seeing the patient for pain in her right hip and clinically feels that she has a right hip contusion with a consolidated subcutaneous hematoma. Patient is uncertain how long she has felt weak in her legs. Current Facility-Administered Medications: ??? acetaminophen (TYLENOL) tablet 650 mg, 650 mg, Oral, Q6H PRN ??? ALPRAZolam (XANAX) tablet 0.5 mg, 0.5 mg, Oral, Q4H PRN ??? cefTRIAXone (ROCEPHIN) 2 g in sodium chloride 0.9 % (NS) MBP 50 mL IVPB, 2 g, Intravenous, Q24H ??? cloNIDine HCL (CATAPRES) tablet 0.1 mg, 0.1 mg, Oral, Q8H PRN ??? cyclobenzaprine (FLEXERIL) tablet 10 mg, 10 mg, Oral, TID PRN ??? docusate sodium (COLACE) capsule 100 mg, 100 mg, Oral, BID PRN ??? doxycycline (VIBRAMYCIN) 100 mg in sodium chloride 0.9 % (NS) MBP 100 mL IVPB, 100 mg, Intravenous, Q12H ??? enoxaparin (LOVENOX) syringe 50 mg, 1 mg/kg, Subcutaneous, Q12H ??? famotidine (PEPCID) tablet 20 mg, 20 mg, Oral, BID ??? hydrALAZINE (APRESOLINE) injection 10 mg, 10 mg, Intravenous, Q4H PRN ??? ipratropium-albuteroL (DUO-NEB) 0.5-2.5 (3) mg/3 mL nebulizer solution 3 mL, 3 mL, Nebulization, Q4H PRN ??? melatonin tablet 6 mg, 6 mg, Oral, Every Night PRN ??? morphine injection 2 mg, 2 mg, Intravenous, Q4H PRN ??? ondansetron (ZOFRAN-ODT) disintegrating tablet 4 mg, 4 mg, Oral, Q8H PRN OR ondansetron PF (ZOFRAN) injection 4 mg, 4 mg, Intravenous, Q8H PRN ??? oxyCODONE (ROXICODONE) immediate release tablet 5 mg, 5 mg, Oral, Q4H PRN ??? polyethylene glycol (GLYCOLAX) packet 17 g, 17 g, Oral, Daily PRN ??? Insert Peripheral IV, , , Once AND Saline Lock IV, , , Once AND sodium chloride 0.9% (NS) flush 10 mL, 10 mL, Intravenous, PRN Past Medical History: Denies any smoking alcohol or illicit drug use. She has hypertension. She had a cholecystectomy. She has had tubal ligation. She has depression and apparently at home takes BuSpar and citalopram and before that was on Zoloft. Past Surgical History: She has a past surgical history that includes Tonsillectomy; Cholecystectomy; and Tubal ligation. Social History: Patient tells me she lives in [facility] with her . She has 1 grown child. She says sheis retired but used to do a lot of various jobs. She says she still drives and walks independently. Family History: She says her mother of pancreatic cancer as did 2 siblings. Her father of liver disease. Allergies: Patient has no known allergies. Medications: Medications Prior to Admission Medication Sig Dispense Refill Last Dose ??? amLODIPine (NORVASC) 2.5 MG tablet Take 1 tablet (2.5 mg total) by mouth daily. Past Week ??? benazepriL (LOTENSIN) 40 MG tablet Take 1 tablet (40 mg total) by mouth 2 (two) times daily. Past Week ??? busPIRone (BUSPAR) 10 MG tablet Take 2 tablets (20 mg total) by mouth 2 (two) times daily. PastWeek ??? cefdinir (OMNICEF) 300 MG capsule Take 1 capsule (300 mg total) by mouth 2 (two) times daily X 7 days. Past Week ??? escitalopram oxalate (LEXAPRO) 10 MG tablet Take 1 tablet (10 mg total) by mouth every morning.Past Week ??? hydroCHLOROthiazide (HYDRODIURIL) 25 MG tablet Take 1 tablet (25 mg total) by mouth daily. PastWeek ??? multivitamin per tablet Take 1 tablet by mouth daily. Past Week ??? ascorbic acid, vitamin C, (ascorbic acid with rebecca hips) 500 MG tablet Take 1 tablet (500 mg total) by mouth daily. ??? aspirin 81 MG chewable tablet Take 1 tablet (81 mg total) by mouth daily. Review of Systems She denies any fevers. Denies any double vision. She denies any hearing loss. She denies any chest pain. She denies any shortness of breath. She denies any changes in her bowel or bladder habits. Shedenies any skin rashes. She denies any muscle aches. She denies any headaches. She denies any suicidality. She denies any diabetes. She says she is never had cancer. Vitals: Blood pressure (!) 164/70, pulse 74, temperature 98.6 ??F (37 ??C), temperature source Oral, resp. rate 16, height 1.6 m (5' 3 ), weight 48.5 kg (107 lb), SpO2 95 %. Physical Exam She is a well-developed female laying comfortably in bed. Her heart is regular rate and rhythm lungs are clear neck is supple without any bruits and ophthalmologic exam was done her pupils react equal to light but I could not see her disc motor exam shows 5 out of 5 strength in both arms she has about 2 out of 5 strength in her right leg and 3 out of 5 strength in her left leg tone in both arms and legs is normal she is alert and oriented x 3 she has good recent and remote recall her attention span and concentration are normal language skills are normal and fund of knowledge is adequate cranial nerves II through XII are intact coordination shows intact [id number] gait was not tested Relevant Results: Sodium is 124. Her head CT today is within normal limits. Assessment & Plan Birgit Estrada is a 73-year-old female with hypertension and depression who was transferred to our hospital yesterday from the inpatient service at [facility] after she fell and was found to have hyponatremia and right leg weakness. She has been placed on anticoagulation today for right lower extremity DVT. I have been asked to see her for confusion and right leg weakness. At this time, I do not know the exact etiology of her confusion and right leg weakness. At this time, I recommend the followin) Check vitamin B12 and folate level. 2) At discharge she should follow-up with an outpatient neurologist not drive until released by physician. 3) To order a CAT scan of her abdomen and pelvis to rule out a retroperitoneal hematoma. 4) If her right leg weakness continues consideration could be given to an MRI of the spine and/or brain. I have spent 80 minutes on this case today. Over half that time was spent reviewing the chart and counseling the patient. Electronically signed by Syed Wakefield MD 09/13/2023 at 9:25 PM * Flaco Alfaro MD - 09/13/2023 3:49 PM EDTAssociated Order(s): FS_MODEL_IP IP CONSULT TO NEPHROLOGY Images from the original note were not included. [facility] consult note Consulting physician: Cornelius Mccarty MD Chief complaint: Right hip pain/hematoma. Reason for consult: Hyponatremia HPI: The patient is a 73 y.o. female with past medical history of hypertension, arthritis who initially presented to outside hospital for evaluation of right hip pain, that started a week ago after she had a fall. She had imaging done at outside hospital that was negative for fracture. Sodium in outsidehospital was noted to be 119 mmol/L. She had chest CT that was negative for malignancy. [facility] for [facility] evaluation due to hyponatremia. On evaluation at bedside, patient denies any history of kidney disease, denies having low sodium inthe past. Patient does take hydrochlorothiazide at home. Currently patient complains of right side and hip pain and leg pain. She denies any fever or chills, denies nausea vomiting or abdominal pain,denies chest pain or shortness of breath. Past medical history: Past Medical History: Diagnosis Date ??? Arthritis ??? Hypertension Past Surgical History: Procedure Laterality Date ??? CHOLECYSTECTOMY ??? TONSILLECTOMY ??? TUBAL LIGATION Medication allergies: No Known Allergies Medications: Current Facility-Administered Medications Medication Dose Route Frequency Provider Last Rate Last Admin ??? acetaminophen (TYLENOL) tablet 650 mg 650 mg Oral Q6H PRN Cornelius Mccarty MD ??? ALPRAZolam (XANAX) tablet 0.5 mg 0.5 mg Oral Q4H PRN Cornelius Mccarty MD 0.5 mg at 09/12/23 2145 ??? cefTRIAXone (ROCEPHIN) 2 g in sodium chloride 0.9 % (NS) MBP 50 mL IVPB 2 g Intravenous Q24H Sim Cole MD IVPB Stopped at 09/13/23 1324 ??? cloNIDine HCL (CATAPRES) tablet 0.1 mg 0.1 mg Oral Q8H PRN Cornelius Mccarty MD ??? cyclobenzaprine (FLEXERIL) tablet 10 mg 10 mg Oral TID PRN Cornelius Mccarty MD 10 mg at 09/12/23 2152 ??? docusate sodium (COLACE) capsule 100 mg 100 mg Oral BID PRN Cornelius Mccarty MD ??? doxycycline (VIBRAMYCIN) 100 mg in sodium chloride 0.9 % (NS) MBP 100 mL IVPB 100 mg Intravenous Q12H Cornelius Mccarty MD IVPB Stopped at 09/13/23 1036 ??? enoxaparin (LOVENOX) syringe 50 mg 1 mg/kg Subcutaneous Q12H Lucinda Sparks PA-C 50 mg at 09/13/23 1253 ??? famotidine (PEPCID) tablet 20 mg 20 mg Oral BID Cornelius Mccarty MD 20 mg at 09/13/23 0936 ??? hydrALAZINE (APRESOLINE) injection 10 mg 10 mg Intravenous Q4H PRN Cornelius Mccarty MD 10 mg at 09/13/23 0032 ??? ipratropium-albuteroL (DUO-NEB) 0.5-2.5 (3) mg/3 mL nebulizer solution 3 mL 3 mL Nebulization Q4H PRN Cornelius Mccarty MD ??? melatonin tablet 6 mg 6 mg Oral Every Night PRN Cornelius Mccarty MD 6 mg at 09/12/23 2144 ??? morphine injection 2 mg 2 mg Intravenous Q4H PRN Cornelius Mccarty MD 2 mg at 09/13/23 0205 ??? ondansetron (ZOFRAN-ODT) disintegrating tablet 4 mg 4 mg Oral Q8H PRN Cornelius Mccarty MD Or ??? ondansetron PF (ZOFRAN) injection 4 mg 4 mg Intravenous Q8H PRN Cornelius Mccarty MD ??? oxyCODONE (ROXICODONE) immediate release tablet 5 mg 5 mg Oral Q4H PRN Cornelius Mccarty MD 5 mg at 09/13/23 0954 ??? polyethylene glycol (GLYCOLAX) packet 17 g 17 g Oral Daily PRN Cornelius Mccarty MD ??? sodium chloride 0.9% (NS) flush 10 mL 10 mL Intravenous PRN Cornelius Mccarty MD Social history: Social History Tobacco Use ??? Smoking status: Not on file ??? Smokeless tobacco: Not on file Substance Use Topics ??? Alcohol use: Not on file Family history: No congenital renal disease Review of Systems: As above otherwise negative or per admission H&P. Objective: Blood pressure (!) 164/70, pulse 74, temperature 98.6 ??F (37 ??C), temperature source Oral, resp. rate 16, height 1.6 m (5' 3 ), weight 48.5 kg (107 lb), SpO2 95 %. Intake/Output Summary (Last 24 hours) at 09/13/2023 1549 Last data filed at 09/13/2023 0800 Gross per 24 hour Intake 100 ml Output -- Net 100 ml GEN: NAD Neuro: AAO no focal deficits seen Psychiatric: Normal mood and affect. Cooperative with exam Eyes: Nonicteric, pupils equal, no conjunctivitis ENT: OMM moist, no lesion seen Neck: No JVD discernible, trachea appears midline Cardiovascular: Regular rate, trace edema Respiratory: Quiet respirations, symmetrical chest expansion Abdomen: NTTP Nondistended : No Red catheter, no palp bladder Skin: No rash or lesions Recent Labs Lab(s) Units 09/13/23 1234 09/13/23 0148 09/12/23 1808 NA meq/L 124* 122* 121* K meq/L 4.2 4.4 4.4 CL meq/L 91* 90* 88* CO2 meq/L 28 26 27 BUN mg/dL 24* 26* 30* CREATININE mg/dL 0.94 0.87 1.03* CALCIUM mg/dL 8.4 8.0* 8.2* ALBUMIN g/dL -- -- 2.9* Recent Labs Lab(s) Units 09/13/23 0148 09/12/23 1807 WBC K/??L 15.2* 13.2* HGB GM/DL 9.1* 8.5* PLT K/CU MM 205 184 Assessment/Plan: Hyponatremia Hypertension Right hip hematoma Right lower extremity DVT. Anemia Plan: Hyponatremia: asymptomatic: . -Sodium on admission at outside hospital 119 .. Sodium in [facility] on admission 121 >> improved to 124 mmol/L. -Patient was started on normal saline. Sodium today 124. -Urine osmolarity 892, urine sodium less than 15, serum osmolarity 261 -Hold normal saline for now. Will repeat sodium level q4 hours. -Patient was not hydrochlorothiazide at home. -Urine studies not consistent with SIADH. -Ordered a stat sodium level. Will do bladder scan. -Target sodium to be corrected 4-6 points in next 24 hours. -Hypertension: Adjust blood pressure medications as needed. Thank you for the consult, will follow with you closely. Flaco Alfaro MD 09/13/23 3:49 PM * Elsy Li - 09/13/2023 3:[address] [facility] NUTRITION ASSESSMENT AD[facility] Nutrition Assessment The patient is a 73 y.o. female transferred from [facility] for evaluation by nephrology. Present on Admission: None (Admitting Diagnoses) Hyponatremia Pneumonia Dehydration Right hip hematoma Nutrition Evaluation Type: Initial Assessment Reason for Evaluation: BMI <19 Subjective Comments: 09/12: NAIN reviewed chart due to remote. notes pt confused, uncooperative, not appropriate for phone interview at this time. Neurology being consulted. Pt is on a regular diet, eating 0% of meals documented. No charted wt hx. Will add ONS prn. Past Medical/Surgical History: Past Medical History: Diagnosis Date ??? Arthritis ??? Hypertension Past Surgical History: Procedure Laterality Date ??? CHOLECYSTECTOMY ??? TONSILLECTOMY ??? TUBAL LIGATION Vitals and Basic Assessment: Vitals: Vitals: 09/13/23 0032 BP: (!) 164/70 Pulse: Resp: Temp: SpO2: Oxygen: room air [place] Scale: [place] Scale Score: 14 Last BM: [employer] GI Symptoms: nondistended active BS Edema: Edema: Right lower extremity, Left lower extremity Skin: intact Allergies: No Known Allergies Scheduled Medications: ??? acetaminophen ??? ALPRAZolam ??? cefTRIAXone ??? cloNIDine HCL ??? cyclobenzaprine ??? docusate sodium ??? doxycycline ??? enoxaparin ??? famotidine ??? hydrALAZINE ??? ipratropium-albuteroL ??? melatonin ??? morphine ??? ondansetron Or ??? ondansetron PF ??? oxyCODONE ??? polyethylene glycol 3350 ??? sodium chloride 0.9% (NS) Drips: none Pertinent Labs: WBC 15.2, Na 124, BUN 24 Anthropometrics: Ht: Height: 160 cm (5' 3 ) Wt: Weight: 48.5 kg (107 lb) Wt hx: none documented BMI: Body mass index is 18.95 kg/m??. IBW: 52kg Percent IBW: 93% Current Nutrition Intake: Diet Orders: Diet Order(s): Regular Diet Supplements: none Intake: 0% x 1 meal recorded Enteral Nutrition? no Diet Experience and Nutrition History: Previous Nutrition Education: unsure Diet Education Provided: not appropriate at this time Nutrition Focused Physical Exam: Date performed: defer Physical signs of fat or muscle wasting with severity: --- Energy intake hx: --- Wt loss: --- Assessment of Malnutrition: Unable to complete malnutrition evaluation at this time. Nutrition Diagnoses: Problem #1: Inadequate Oral Intake Etiology: altered mentation Signs/Symptoms: pt eating 0% of documented meals Status: Ongoing Problem #2: Underweight Etiology: advanced age Signs/Symptoms: BMI 18.9 Status: Ongoing Nutrition Interventions and Recommendations: Collaboration with other providers, General, [employer]iet and Commercial beverage Nutrition Monitoring and Goals: 1. Continue regular diet. RD will add Ensure Enlive BID Goal: po intakes > 50% from meals and ONS 2. Weigh 1-2x weekly Goal: no significant wt changes Nutrition Risk Level: High Risk Elsy Li, NAIN, LD * Lucinda Sparks PA-C - 09/13/2023 11:07 AM EDTAssociated Order(s): Inpatient consult to Vascular Surgery Summary: Vascular Consult - [facility] VASCULAR SURGERY CONSULT NOTE Inpatient consult to Vascular Surgery Consult performed by: Lucinda Sparks PA-C Consult ordered by: Cornelius Mccarty MD Reason for consult: RIGHT LE DVT History of Present Illness: Birgit Estrada is a 73 y.o. female on whom vascular surgery has been consulted regarding right lower extremity DVT. She was initially seen at an outside facility for generalized weakness following a fall that resulted in right hip pain with hematoma and determined to be hyponatremic. CT chest and head was obtained and negative. She was then transferred to [facility] for higher level of care and nephrology evaluation. Orthopedics has been consulted, xray imaging was negative for right hip fracture. Venous duplex demonstrated deep vein thrombosis in the right peroneal and soleal veins.Anticoagulation has not been started due to presence of hematoma. She is maintained on aspirin 81mg at home. Past Medical History She has a past medical history of Arthritis and Hypertension. Past Surgical History She has a past surgical history that includes Tonsillectomy; Cholecystectomy; and Tubal ligation. Social History Tobacco Use ??? Smoking status: Not on file ??? Smokeless tobacco: Not on file Substance Use Topics ??? Alcohol use: Not on file ??? Drug use: Not on file Family History: She family history is not on file. Allergies: Patient has no known allergies. Medications: Medications Prior to Admission Medication Sig Dispense Refill Last Dose ??? amLODIPine (NORVASC) 2.5 MG tablet Take 1 tablet (2.5 mg total) by mouth daily. Past Week ??? benazepriL (LOTENSIN) 40 MG tablet Take 1 tablet (40 mg total) by mouth 2 (two) times daily. Past Week ??? busPIRone (BUSPAR) 10 MG tablet Take 2 tablets (20 mg total) by mouth 2 (two) times daily. PastWeek ??? cefdinir (OMNICEF) 300 MG capsule Take 1 capsule (300 mg total) by mouth 2 (two) times daily X 7 days. Past Week ??? escitalopram oxalate (LEXAPRO) 10 MG tablet Take 1 tablet (10 mg total) by mouth every morning.Past Week ??? hydroCHLOROthiazide (HYDRODIURIL) 25 MG tablet Take 1 tablet (25 mg total) by mouth daily. PastWeek ??? multivitamin per tablet Take 1 tablet by mouth daily. Past Week ??? ascorbic acid, vitamin C, (ascorbic acid with rebecca hips) 500 MG tablet Take 1 tablet (500 mg total) by mouth daily. ??? aspirin 81 MG chewable tablet Take 1 tablet (81 mg total) by mouth daily. Review of Systems: General: No recent fevers and chills/sweats HEENT: No visual changes, hearing deficits, nasal congestion, neck or throat pain Respiratory: No shortness of breath, cough, wheezing, hemoptysis Cardiovascular: No chest pain, palpitations, syncope Gastrointestinal: +abdominal pain Genitourinary: No hematuria, dysuria, frequency Neal/Lymph: No bleeding disorders or DVT, bruising tendency, swollen lymph glands Endocrine: No excessive thirst, excessive hunger Extremities: No edema, erythema, ecchymosis Musculoskeletal: + right hip and leg pain Skin: No rashes, pruritus, abrasions, sores Neurologic: No dizziness, history of stroke Psychiatric: No anxiety, depression Vitals Blood pressure (!) 164/70, pulse 74, temperature 98.6 ??F (37 ??C), temperature source Oral, resp. rate 16, height 1.6 m (5' 3 ), weight 48.5 kg (107 lb), SpO2 95 %. Physical Exam: General: no acute distress, alert and oriented x4, no family at bedside HEENT: normocephalic, sclerae anicteric, extraocular movements intact, ears and nose externally normal, oral mucosa moist, no jvd Lymphatic: no cervical lymphadenopathy Chest: normal respiratory effort; clear to auscultation BILATERALLY Heart: regular rate and rhythm Abdomen: soft, non-distended, non-tender, +BS; no masses noted Extremities: RIGHT LE: warm and pink without significant edema noted, hematoma noted to right lateral thigh withecchymosis present, stable LEFT LE: warm and pink without significant edema noted, motor and sensory intact Vascular: palpable femoral, DP, PT pulses BILATERALLY Neuro: cranial nerves II-XII grossly intact, sensorium intact, motor intact Integumentary: no rashes, wounds/abrasions, no cyanosis, no clubbing Psychiatric: cooperative, appropriate mood and affect Relevant Results: Results for orders placed or performed during the hospital encounter of 09/12/23 (from the past 24 hour(s)) CBC with automated diff Status: Abnormal Collection Time: 09/12/23 6:07 PM Result Value Ref Range WBC 13.2 (H) 4.0 - 10.0 K/??L RBC 2.85 (L) 3.93 - 5.22 M/??L Hemoglobin 8.5 (L) 11.2 - 15.7 GM/DL Hematocrit 23.6 (L) 34.1 - 44.9 % MCV 83 79 - 95 fL MCH 29.8 25.6 - 32.2 pg MCHC 36.0 (H) 32.2 - 35.5 GM/DL RDW 12.6 11.7 - 14.4 % Platelets 184 140 - 375 K/CU MM MPV 11.7 9.4 - 12.3 fL % Neutros 95 (H) 34 - 71 % % Lymphs 3 (L) 19 - 52 % % Monos 2 (L) 5 - 13 % % Eos 0 (L) 1 - 6 % % Baso 0 0 - 1 % NRBC Absolute <0.01 0 - 0.012 K/ul # Neutros 12.48 (H) 1.56 - 6.13 K/??L # Lymphs 0.38 (L) 1.18 - 3.74 K/??L # Monos 0.29 0.24 - 0.86 K/??L # Eos <0.03 (L) 0.04 - 0.36 K/??L # Baso <0.03 0.01 - 0.08 K/??L Immature Granulocytes-Relative 0.30 0.01 - 0.43 % # IG 0.04 (H) 0.00 - 0.03 K/uL Prothrombin time/INR Status: Normal Collection Time: 09/12/23 6:07 PM Result Value Ref Range Protime 10.9 9.0 - 12.0 seconds INR 0.99 0.80 - 1.10 aPTT Status: Normal Collection Time: 09/12/23 6:07 PM Result Value Ref Range PTT 23.2 22.0 - 32.0 seconds Lactic Acid with reflex Status: Normal Collection Time: 09/12/23 6:07 PM Result Value Ref Range Lactic Acid Level (mmol/L) 1.8 0.4 - 2.0 mmol/L CBC Scan Status: Normal Collection Time: 09/12/23 6:07 PM Result Value Ref Range Platelet Estimate Adequate Adequate RBC Morphology Normal Normal Comprehensive Metabolic Panel Status: Abnormal Collection Time: 09/12/23 6:08 PM Result Value Ref Range Sodium 121 (L) 136 - 146 meq/L Potassium 4.4 3.5 - 5.1 meq/L Chloride 88 (L) 102 - 112 meq/L CO2 27 21 - 32 meq/L Calcium 8.2 (L) 8.4 - 10.1 mg/dL Glucose 162 (H) 74 - 106 mg/dL BUN 30 (H) 7 - 22 mg/dL Creatinine 1.03 (H) 0.55 - 1.02 mg/dL BUN/Creatinine 29 (H) 8 - 20 Albumin 2.9 (L) 3.4 - 5.0 g/dL Alkaline Phosphatase 45 27 - 136 U/L ALT 163 (H) 13 - 56 U/L AST 216 (H) 5 - 37 U/L Total Bilirubin 0.9 0.2 - 1.2 mg/dL Protein, Total 5.2 (L) 6.4 - 8.2 gm/dL Anion Gap 10 9 - 20 A/G Ratio 1.3 1.1 - 2.5 Globulin 2.3 1.5 - 4.5 g/dL Osmolality Calc 253.8 eGFR (mL/min/1.73m2) 58 (L) >=60 mL/min/1.73m2 PROBNP Status: Abnormal Collection Time: 09/12/23 6:08 PM Result Value Ref Range ProBNP (pg/mL) 1,616 (H) 0 - 125 pg/mL High Sensitivity Troponin I Status: Normal Collection Time: 09/12/23 6:08 PM Result Value Ref Range Troponin I High Sensitivity (pg/mL) 13.1 3 - 58.8 pg/mL Procalcitonin Status: Normal Collection Time: 09/12/23 6:08 PM Result Value Ref Range Procalcitonin <0.14 <=0.50 ng/mL Blood Gas, Arterial Status: Abnormal Collection Time: 09/12/23 6:25 PM Result Value Ref Range pH, Arterial 7.51 (H) 7.35 - 7.45 pCO2, Arterial 34 (L) 35 - 45 mm Hg pO2, Arterial 68 (L) 80 - 100 mm Hg HCO3, Arterial 27 (H) 20 - 26 mmol/L Base Excess, Arterial 4.1 (H) -2.0 - 2.0 mmol/L O2 Sat, Arterial 95.7 95.0 - 100.0 % CTO2 ARTERIAL 11.9 mmol/L THB ARTERIAL 9.0 (L) 12.0 - 18.0 g/dL [facility] COLLECTION SITE Right Radial Arterial Puncture Yes Blood Gas PT Temperature C 37.0 Marques's Test Acceptable ABG Number of Draw Attempts 1 Comment room air Performed by: Agapito Coronel [employer]CH[employer]IC FIO2 Blood Gas Temperature Corrected Results No No ECG 12 lead Status: None (In process) Collection Time: 09/12/23 7:00 PM Result Value Ref Range VENTRICULAR RATE EKG/MIN 73 BPM ATRIAL RATE (MCT) 73 BPM DE Interval 130 ms QRS-INTERVAL (MSEC) 72 ms QT Interval 358 ms QTC Interval 394 ms P [place] 60 degrees R AXIS (MCT) 60 degrees T Wave [place] 60 degrees [place] Diagnosis Normal sinus rhythm Anterior infarct (cited on or before 12-SEP-2023) Abnormal ECG When compared with ECG of 12-SEP-2023 18:59, No significant change was found Urinalysis w/Microscopic Status: Abnormal Collection Time: 09/12/23 10:10 PM Result Value Ref Range Color, UA Yellow Clarity, UA Turbid (A) Clear Specific [place], UA 1.041 (H) 1.005 - 1.030 pH, UA 6.0 6.0 - 8.0 Leukocytes, UA Negative Negative Nitrite, UA Negative Negative Protein, UA 1+ (A) Negative Glucose, UA Normal Normal Ketones, UA Negative Negative Urobilinogen, UA Normal Normal Bilirubin, UA Negative Negative Blood, UA 3+ (A) Negative RBC, UA 0-2 (A) None Seen /HPF WBC, UA 11-20 (A) None Seen /HPF Bacteria, UA 1+ (A) None Seen, Trace Mucus 1+ (A) None Seen SQUAMOUS EPITHELIAL 3-5 (A) None Seen /HPF Specimen Source Urine, Voided Urine Drug Screen Status: Abnormal Collection Time: 09/12/23 10:10 PM Result Value Ref Range Amphetamine Urine Negative Negative Barbiturate Screen Negative Negative Benzodiazepine Screen Negative Negative Cocaine (Metab.) Screen Negative Negative Opiate Screen Positive (A) Negative Phencyclidine Screen Negative Negative Tricyclic Screen Negative Negative Tetrahydrocannabinol Negative Negative Creatinine, Ur 165.0 mg/dL pH, UA 5.5 (L) 6.0 - 8.0 CBC - Hemogram (SJ-BKR) Status: Abnormal Collection Time: 09/13/23 1:48 AM Result Value Ref Range WBC 15.2 (H) 4.0 - 10.0 K/??L RBC 2.99 (L) 3.93 - 5.22 M/??L Hemoglobin 9.1 (L) 11.2 - 15.7 GM/DL Hematocrit 24.6 (L) 34.1 - 44.9 % MCV 82 79 - 95 fL MCH 30.4 25.6 - 32.2 pg MCHC 37.0 (H) 32.2 - 35.5 GM/DL RDW 12.5 11.7 - 14.4 % Platelets 205 140 - 375 K/CU MM MPV 11.6 9.4 - 12.3 fL Basic Metabolic Panel Status: Abnormal Collection Time: 04/01/24 1:48 AM Result Value Ref Range Sodium 122 (L) 136 - 146 meq/L Potassium 4.4 3.5 - 5.1 meq/L Chloride 90 (L) 102 - 112 meq/L CO2 26 21 - 32 meq/L Anion Gap 10 9 - 20 BUN 26 (H) 7 - 22 mg/dL Creatinine 0.87 0.55 - 1.02 mg/dL BUN/Creatinine 30 (H) 8 - 20 Glucose 128 (H) 74 - 106 mg/dL Calcium 8.0 (L) 8.4 - 10.1 mg/dL Osmolality Calc 252.3 eGFR (mL/min/1.73m2) >60 >=60 mL/min/1.73m2 Ammonia Status: Normal Collection Time: 09/13/23 1:48 AM Result Value Ref Range Ammonia 16 11 - 32 ??mol/L Lactic Acid with reflex (SJ) Status: Normal Collection Time: 09/13/23 1:48 AM Result Value Ref Range Lactic Acid Level (mmol/L) 1.0 0.4 - 2.0 mmol/L Procalcitonin Status: Normal Collection Time: 09/13/23 1:48 AM Result Value Ref Range Procalcitonin <0.14 <=0.50 ng/mL US DOPPLER VENOUS LEGS BILATERAL Vascular Lower Extremities DVT Study Procedure Demographics Patient Name SEAN REILLY Age 73 Patient Number [id number] Gender Female Race Unknown Ethnicity [employer] ID [id number] Height 63 Date of 1950 Weight 107 Accession Number [id number] BSA 1.48 m^2 Room Number 658 BMI 18.95 kg/m^2 Referring CORNELIUS MCCARTY MD Interpreting [place] Physician Physician [employer] Molder Monse Gonsalez RVT Procedure Type of Study: Veins: Venous Duplex, Venous Duplex Legs, Lower Extremities DVT Study, US DOPPLER VENOUS LEGS BILATERAL. Impressions Summary INDICATION: BILATERAL LE SWELLING (R22.43) ################################ RIGHT: ##Abnormal venous duplex study, deep vein thrombosis identified in the peroneal vein and soleal vein .## Thrombus appears acute in age. No evidence of a superficial venous thrombosis. LEFT: No evidence of deep venous thrombosis (DVT) or superficial venous thrombosis. ################################ Patient Status:Inpatient . Study Location:Portable. Technical Quality:Technically difficult study due to patient's positioning. Velocities are measured in cm/s ; Diameters are measured in mm Right Lower Extremities DVT Study Measurements Right 2D Measurements + + + + + !Location !Visualized !Compressibility !Thrombosis ! + + + + + !GSV Thigh !Yes !Yes !None ! + + + + + !Common Femoral !Yes !Yes !None ! + + + + + !Deep Femoral !Yes !Yes !None ! + + + + + !Prox Femoral !Yes !Yes !None ! + + + + + !Mid Femoral !Yes !Yes !None ! + + + + + !Dist Femoral !Yes !Yes !None ! + + + + + !Popliteal !Yes !Yes !None ! + + + + + !PTV !Yes !Yes !None ! + + + + + !Peroneal !Yes !No !Yes ! + + + + + Right Doppler Measurements + + +------+ + !Location !Signal !Reflux!Reflux (sec) ! + + +------+ + !Common Femoral !Spontaneous Phasic ! ! ! + + +------+ + !Prox Femoral !Spontaneous Phasic ! ! ! + + +------+ + !Deep Femoral !Spontaneous Phasic ! ! ! + + +------+ + !Popliteal !Spontaneous Phasic ! ! ! + + +------+ + Left Lower Extremities DVT Study Measurements Left 2D Measurements + + + + + !Location !Visualized !Compressibility !Thrombosis ! + + + + + !GSV Thigh !Yes !Yes !None ! + + + + + !Common Femoral !Yes !Yes !None ! + + + + + !Deep Femoral !Yes !Yes !None ! + + + + + !Prox Femoral !Yes !Yes !None ! + + + + + !Mid Femoral !Yes !Yes !None ! + + + + + !Dist Femoral !Yes !Yes !None ! + + + + + !Popliteal !Yes !Yes !None ! + + + + + !PTV !Yes !Yes !None ! + + + + + !Peroneal !Yes !Yes !None ! + + + + + Left Doppler Measurements + + +------+ + !Location !Signal !Reflux!Reflux (sec) ! + + +------+ + !Common Femoral !Spontaneous Phasic ! ! ! + + +------+ + !Prox Femoral !Spontaneous Phasic ! ! ! + + +------+ + !Deep Femoral !Spontaneous Phasic ! ! ! + + +------+ + !Popliteal !Spontaneous Phasic ! ! ! + + +------+ + Findings Right Findings Thrombus identified in the peroneal vein (deep venous thrombosis) . Thrombus identified in the soleal vein (deep venous thrombosis) . Thrombus appears to be acute in age. No evidence of a superficial venous thrombosis. Normal response to augmentation in the supine position. Left Findings No evidence of a deep venous thrombosis (DVT). No evidence of a superficial venous thrombosis. Normal response to augmentation in the supine position. Signature XR chest AP portable, XR pelvis 1 or 2 views Narrative: PORTABLE CHEST. 09/12/2023 6:19 PM HISTORY: Shortness of breath. COMPARISON: None. FINDINGS: The cardiac silhouette is normal in size. The mediastinum is unremarkable. The lungs are clear. There is no pneumothorax. Impression: No acute cardiopulmonary process. PELVIS, ONE VIEW HISTORY: Hematoma of the right hip, arthritis. COMPARISON: None. FINDINGS: A single AP view of the pelvis exam demonstrates no acute fracture or dislocation. The joint spaces appear unremarkable. No soft tissue abnormality is seen. IMPRESSION: No acute bony abnormality. Images reviewed, interpreted, and dictated by Dr. Jose Barnes. Transcribed by Jane Stephens PA-C. Assessment & Plan Principal Problem: Weakness Right Lower Extremity DVT - Venous duplex demonstrated deep vein thrombosis in the right peroneal and soleal veins - labs reviewed: WBC 15.2, Hgb 9.1, Cr 0.87 - anticoagulation has not been started due to presence of hematoma Plan - pain control prn - compression and elevation to right lower extremity - Lovenox 1mg/kg ordered. Transition to OAC when no further procedures confirmed - Ortho consulted, no evidence of fracture - medical management per primary - No vascular intervention warranted - Further recommendations to follow physician review Cosigned by Junior Helio MD at 09/13/2023 4:45 PM EDT Associated attestation - Junior Cadet MD - 09/13/2023 3:45 PM CDT I saw and examined this patient and formulated the assessment and plan. Patient with a right lower extremity DVT small hematoma okay for anticoagulation and transition to oral anticoagulation follow-up in 3 to 6 months for repeat ultrasound * Sim Cole MD - 09/13/2023 10:59 AM EDT Images from the original note were not included. [facility] INFECTIOUS DISEASE CONSULT/INITIAL HOSPITAL VISIT Birgit Estrada 1950 [id number] Date of consult: 09/13/2023 Admit date: 09/12/2023 Requesting Provider: @[email or web address]@ Evaluating physician: Sim Cole MD Reason for Consultation: Acute bacterial cystitis Chief Complaint: Above Subjective History of present illness: Patient is a 73 y.o. Yr old female who is a poor historian with a history of essential hypertension, DJD, fell around 09/05/2023, sustaining increasing right hip pain, and was evaluated at an outside hospital and shown to have severe hyponatremia which was not improving. Patient also had a chest x-ray with possible opacity, with a normal CT scan negative for malignancy. CT scan of the head was unremarkable. Patient was transferred and admitted to [facility] on 09/12/2023. Urinalysis had significant pyuria at 11-20 WBCs but minimal symptoms. Right hip had noted hematoma likely relatedto her previous fall. Chest x-ray at [facility] was unremarkable. The patient was placedon piperacillin/tazobactam and doxycycline on 09/11. Duplex ultrasound was significant for right lower leg DVT in the peroneal and soleus veins. I was consulted on 09/13/2023 for further evaluation and treatment. No reported history of ill contacts, zoonotic exposures, TB, HIV, significant travel, immunocompromised state. Past Medical History: Diagnosis Date ??? Arthritis ??? Hypertension Past Surgical History: Procedure Laterality Date ??? CHOLECYSTECTOMY ??? TONSILLECTOMY ??? TUBAL LIGATION Pediatric History Patient Parents ??? Not on file Other Topics Concern ??? Not on file Social History Narrative ??? Not on file Negative for cigarettes, alcohol, or drug use family history is not on file. Reviewed and unremarkable No Known Allergies Immunization History Administered Date(s) Administered ??? COVID-19 2022- VACCINE MODERNA (SPIKEVAX) 12 YRS + ([id number]) 05/18/2023 ? ? COVID-19 VACCINE MRNA (MODERNA/BIVALENT)(DARK BLUE CAP W/DOAN)([id number] & [id number]) 03/10/2022 ??? Covid-19 Vaccine MRNA (PF) 18yr+ (Moderna)([id number]) 07/18/2020, 08/15/2020, 02/27/2021, 11/04/2021 Medication: @Scheduled Meds: ??? doxycycline 100 mg Intravenous Q12H IVPB Stopped at 09/13/23 1036 ??? famotidine 20 mg Oral BID 20 mg at 09/13/23 0936 ??? piperacillin-tazobactam 4.5 g Intravenous Q6H BONNIE IVPB Stopped at 09/13/23 0857 Continuous Infusions: PRN Meds:. ??? acetaminophen ??? ALPRAZolam ??? cloNIDine HCL ??? cyclobenzaprine ??? docusate sodium ??? hydrALAZINE ??? ipratropium-albuteroL ??? melatonin ??? morphine ??? ondansetron Or ??? ondansetron PF ??? oxyCODONE ??? polyethylene glycol 3350 ??? sodium chloride 0.9% (NS) Please refer to the medical record for a full medication list Review of Systems: Constitutional-- No Fever, chills or sweats. Appetite fair, and no malaise. No fatigue. HEENT-- No new vision, hearing or throat complaints. No epistaxis or oral sores. Denies odynophagiaor dysphagia. No odynophagia or dysphagia. No headache, photophobia or neck stiffness. CV-- No chest pain, palpitation or syncope Resp-- No SOB/cough/Hemoptysis GI- No nausea, vomiting, or diarrhea. No hematochezia, melena, or hematemesis. Denies jaundice or chronic liver disease. -- No dysuria, hematuria, or flank pain. Denies hesitancy, urgency. Occasional frequency. Lymph- no swollen lymph nodes in neck/axilla or groin. Heme- No active bruising or bleeding; no Hx of DVT or PE. MS-- no swelling or pain in the bones or joints of arms/legs, except right hip as per HPI. No new back pain. Neuro-- No acute focal weakness or numbness in the arms or legs. No seizures. Skin--No rashes or lesions Physical Exam: Vital Signs Temp: [98.6 ??F (37 ??C)] 98.6 ??F (37 ??C) Pulse: [74] 74 Resp: [16] 16 BP: (144-164)/(63-70) 164/70 Blood pressure (!) 164/70, pulse 74, temperature 98.6 ??F (37 ??C), temperature source Oral, resp. rate 16, height 1.6 m (5' 3 ), weight 48.5 kg (107 lb), SpO2 95 %. GENERAL: Awake and alert, in mild to moderate distress. Appears older than stated age. Resting in bed. HEENT: Normocephalic, atraumatic. Oropharynx without thrush. Dentition in good repair. No cervical adenopathy. No neck masses. Ears externally normal, Nose externally normal. Trachea midline. EYES: PERRL. No conjunctival injection. No icterus. EOM full. LYMPHATICS: No lymphadenopathy of the neck or axillary or inguinal regions. HEART: No murmur, gallop, or pericardial friction rub. Reg rate rhythm, No JVD at 45 degrees. LUNGS: Clear to auscultation and percussion. No respiratory distress, no use of accessory muscles. No rales or rhonchi. ABDOMEN: Soft, nontender, nondistended. No appreciable HSM. Bowel sounds normal. GENITAL: No external lesions, breasts without masses, back straight, no CVAT, rectal external without lesions. SKIN: Warm and dry without cutaneous eruptions. No nodules. Right hip hematoma noted. No surrounding crepitus or bullae. PSYCHIATRIC: Mental status lucid. No confusion. EXT: No cellulitic change. Normal ROM. NEURO: Oriented to name, CN 2 to 12 intact, DTR 1 + and symmetric, sensory intact to LT upper and lower extremitiy, motor 5/5 upper and lower extremity, cerebellar and gait not tested. Results Review: I reviewed the patient's new clinical results. Recent Labs Lab(s) Units 09/13/23 0148 09/12/23 180 WBC K/??L 15.2* 13.2* HGB GM/DL 9.1* 8.5* HCT % 24.6* 23.6* PLT K/CU MM 205 184 Recent Labs Lab(s) Units 09/13/23 0148 NA meq/L 122* K meq/L 4.4 CL meq/L 90* CO2 meq/L 26 BUN mg/dL 26* CREATININE mg/dL 0.87 GLUCOSE mg/dL 128* CALCIUM mg/dL 8.0* Recent Labs Lab(s) Units 09/12/23 180 ALKPHOS U/L 45 BILITOT mg/dL 0.9 ALT U/L 163* AST U/L 216* No results for input(s): SEDRATE in the last 168 hours. No results for input(s): CRP in the last 168 hours. No results for input(s): VANCOTROUGH , VANCORANDOM in the last 168 hours. No results for input(s): LACTATE in the last 168 hours. Estimated Creatinine Clearance: 38.4 mL/min (by C-G formula based on SCr of 0.87 mg/dL). @LABRCNTIP (cpk,ast,alt,alkaline phosphatase)@ Microbiology: Microbiology Results (last 7 days) Procedure Component Value Units Date/Time Urine Culture [[id number]] Order Status: Sent Specimen: Urine, Clean Catch Blood Culture Forearm, Left [[id number]] Collected: 09/12/231813 Order Status: Resulted Specimen: Blood from Forearm, Left Updated: 09/12/231832 Blood Culture Antecubital, Right [[id number]] Collected: 09/12/231805 Order Status: Resulted Specimen: Blood from Antecubital, Right Updated: 09/12/231832 Radiology: Radiology Results (last 3 days) Procedure Component Value Units Date/Time CT brain without IV contrast [[id number]] Resulted: 09/13/23 1054 Order Status: Sent Updated: 09/13/23 1054 US DOPPLER VENOUS LEGS BILATERAL [[id number]] Collected: 09/13/23 0752 Order Status: Completed Updated: 09/13/23 1046 Narrative: Vascular Lower Extremities DVT Study Procedure Demographics Patient Name SEAN REILLY Age 73 Patient Number [id number] Gender Female Race Unknown Ethnicity [employer] ID [id number] Height 63 Date of 1950 Weight 107 Accession Number [id number] BSA 1.48 m^2 Room Number [id number] BMI 18.95 kg/m^2 Referring CORNELIUS MCCARTY MD Interpreting [facility] Physician Physician [employer] Monse Gonsalez RVT Procedure Type of Study: Veins: Venous Duplex, Venous Duplex Legs, Lower Extremities DVT Study, US DOPPLER VENOUS LEGS BILATERAL. Impressions Summary INDICATION: BILATERAL LE SWELLING (R22.43) ################################ RIGHT: ##Abnormal venous duplex study, deep vein thrombosis identified in the peroneal vein and soleal vein .## Thrombus appears acute in age. No evidence of a superficial venous thrombosis. LEFT: No evidence of deep venous thrombosis (DVT) or superficial venous thrombosis. ################################ Patient Status:Inpatient . Study Location:Portable. Technical Quality:Technically difficult study due to patient's positioning. Velocities are measured in cm/s ; Diameters are measured in mm Right Lower Extremities DVT Study Measurements Right 2D Measurements + + + + + !Location !Visualized !Compressibility !Thrombosis ! + + + + + !GSV Thigh !Yes !Yes !None ! + + + + + !Common Femoral !Yes !Yes !None ! + + + + + !Deep Femoral !Yes !Yes !None ! + + + + + !Prox Femoral !Yes !Yes !None ! + + + + + !Mid Femoral !Yes !Yes !None ! + + + + + !Dist Femoral !Yes !Yes !None ! + + + + + !Popliteal !Yes !Yes !None ! + + + + + !PTV !Yes !Yes !None ! + + + + + !Peroneal !Yes !No !Yes ! + + + + + Right Doppler Measurements + + +------+ + !Location !Signal !Reflux!Reflux (sec) ! + + +------+ + !Common Femoral !Spontaneous Phasic ! ! ! + + +------+ + !Prox Femoral !Spontaneous Phasic ! ! ! + + +------+ + !Deep Femoral !Spontaneous Phasic ! ! ! + + +------+ + !Popliteal !Spontaneous Phasic ! ! ! + + +------+ + Left Lower Extremities DVT Study Measurements Left 2D Measurements + + + + + !Location !Visualized !Compressibility !Thrombosis ! + + + + + !GSV Thigh !Yes !Yes !None ! + + + + + !Common Femoral !Yes !Yes !None ! + + + + + !Deep Femoral !Yes !Yes !None ! + + + + + !Prox Femoral !Yes !Yes !None ! + + + + + !Mid Femoral !Yes !Yes !None ! + + + + + !Dist Femoral !Yes !Yes !None ! + + + + + !Popliteal !Yes !Yes !None ! + + + + + !PTV !Yes !Yes !None ! + + + + + !Peroneal !Yes !Yes !None ! + + + + + Left Doppler Measurements + + +------+ + !Location !Signal !Reflux!Reflux (sec) ! + + +------+ + !Common Femoral !Spontaneous Phasic ! ! ! + + +------+ + !Prox Femoral !Spontaneous Phasic ! ! ! + + +------+ + !Deep Femoral !Spontaneous Phasic ! ! ! + + +------+ + !Popliteal !Spontaneous Phasic ! ! ! + + +------+ + Findings Right Findings Thrombus identified in the peroneal vein (deep venous thrombosis) . Thrombus identified in the soleal vein (deep venous thrombosis) . Thrombus appears to be acute in age. No evidence of a superficial venous thrombosis. Normal response to augmentation in the supine position. Left Findings No evidence of a deep venous thrombosis (DVT). No evidence of a superficial venous thrombosis. Normal response to augmentation in the supine position. Signature XR chest AP portable [[id number]] Collected: 09/13/23800 Order Status: Completed Updated: 09/13/23913 Narrative: PORTABLE CHEST. 09/12/2023 6:19 PM HISTORY: Shortness of breath. COMPARISON: None. FINDINGS: The cardiac silhouette is normal in size. The mediastinum is unremarkable. The lungs are clear. There is no pneumothorax. Impression: No acute cardiopulmonary process. PELVIS, ONE VIEW HISTORY: Hematoma of the right hip, arthritis. COMPARISON: None. FINDINGS: A single AP view of the pelvis exam demonstrates no acute fracture or dislocation. The joint spaces appear unremarkable. No soft tissue abnormality is seen. IMPRESSION: No acute bony abnormality. Images reviewed, interpreted, and dictated by Dr. Jose Barnes. Transcribed by Jane Stephens PA-C. XR pelvis 1 or 2 views [[id number]] Collected: 09/13/23800 Order Status: Completed Updated: 09/13/23913 Narrative: PORTABLE CHEST. 09/12/2023 6:19 PM HISTORY: Shortness of breath. COMPARISON: None. FINDINGS: The cardiac silhouette is normal in size. The mediastinum is unremarkable. The lungs are clear. There is no pneumothorax. Impression: No acute cardiopulmonary process. PELVIS, ONE VIEW HISTORY: Hematoma of the right hip, arthritis. COMPARISON: None. FINDINGS: A single AP view of the pelvis exam demonstrates no acute fracture or dislocation. The joint spaces appear unremarkable. No soft tissue abnormality is seen. IMPRESSION: No acute bony abnormality. Images reviewed, interpreted, and dictated by Dr. Jose Barnes. Transcribed by Jane Stephens PA-C. . IMPRESSION: 1. Pyuria with possible acute bacterial cystitis. 2. Right hip hematoma after fall 09/05/2023. X-ray without fracture. 3. Reported chest x-ray infiltrate resolved. Could have had atelectasis, and is at risk for pulmonary embolus given demonstration of new DVT. 4. DVT right lower leg soleus and peroneal veins positive duplex 09/13/2023. 5. Leukocytosis, neutrophilic related to above issues. May be related to cystitis versus other. Blood cultures x 2 from 09/11 negative. 6. Hyponatremia related to above issues, medications, possible SIADH, versus other. 7. Anemia, related to above issues and right hip hematoma. 8. Hypocalcemia 8.0. 9. Elevated transaminase with ALT 163, AST 216, total bilirubin 0.9, alkaline phosphatase 45. Reportedly CT scan abdomen and pelvis at outside hospital without significant pathology. May need to repeat ultrasound versus other. RECOMMENDATIONS: 1. Diagnostically, continue to follow patient's physical exam, CBC, CMP, CRP, cultures which have been obtained, and radiographic studies. Check urine culture. 2. Therapeutically, consider treatment with doxycycline and ceftriaxone pending further culture data. 3. Supportive care. Room air on 09/13/2023. Orthopedics, nephrology, neurology evaluating. I discussed the patient's findings and my recommendations with the patient and nursing. Thank you for asking me to see Birgit Estrada. Our group would be pleased to follow this patient over the course of their hospitalization and assist with outpatient antimicrobial therapy, as indicated. Further recommendations depend on the results of the cultures and clinical course. Increased riskfor adverse drug reactions, complications of IV access, need for surgery, readmission. Sim Cole MD 09/13/2023 * Ray Draper PA-C - 09/13/2023 7:53 AM EDT Images from the original note were not included. ORTHOPAEDIC SURGERY CONSULT NOTE Primary Care Provider: Provider Not In System Consults Reason for Consult: Right hip pain hematoma? History of Present Illness Birgit Estrada is a 73 y.o. female presenting with muscle spasm This is 73-year-old female admitted at outlying facility because patient was weakness history of fall with right hip pain patient been evaluated there she was found with hyponatremia she started on normal saline at CT chest and head which was negative patient transferred to [facility] to be evaluated by nephrology patient came in blood work ordered started on antibiotic IV fluids regulardiet and pain control. Bruising was noted on the right hip during admission. Orthopedics was consulted for evaluation Patient denies being on blood thinner. She does endorse a fall last Wednesday. Patient does not respond appropriately to all questions. Unaware of current location Review of Systems General no fever or chills Head no headache or dizziness Eyes no change in vision Ears no ear ache Nose no epistaxis Throat no sore throat Respiratory shortness of breath and cough cardiac no chest pain GI no nausea or vomiting Urinary no hematuria musculoskeletal right hip pain and muscle spasm Neurological no focal numbness or weakness Skin right hip hematoma General patient in bed mild distress in pain Past Medical History She has a past medical history of Arthritis and Hypertension. Past Surgical History She has a past surgical history that includes Tonsillectomy; Cholecystectomy; and Tubal ligation. Family History She family history is not on file. Allergies Patient has no known allergies. Medications Medications Prior to Admission Medication Sig Dispense Refill Last Dose ??? amLODIPine (NORVASC) 2.5 MG tablet Take 1 tablet (2.5 mg total) by mouth daily. Past Week ??? benazepriL (LOTENSIN) 40 MG tablet Take 1 tablet (40 mg total) by mouth 2 (two) times daily. Past Week ??? busPIRone (BUSPAR) 10 MG tablet Take 2 tablets (20 mg total) by mouth 2 (two) times daily. PastWeek ??? cefdinir (OMNICEF) 300 MG capsule Take 1 capsule (300 mg total) by mouth 2 (two) times daily X 7 days. Past Week ??? escitalopram oxalate (LEXAPRO) 10 MG tablet Take 1 tablet (10 mg total) by mouth every morning.Past Week ??? hydroCHLOROthiazide (HYDRODIURIL) 25 MG tablet Take 1 tablet (25 mg total) by mouth daily. PastWeek ??? multivitamin per tablet Take 1 tablet by mouth daily. Past Week ??? ascorbic acid, vitamin C, (ascorbic acid with rebecca hips) 500 MG tablet Take 1 tablet (500 mg total) by mouth daily. ??? aspirin 81 MG chewable tablet Take 1 tablet (81 mg total) by mouth daily. Vitals Blood pressure (!) 164/70, pulse 74, temperature 98.6 ??F (37 ??C), temperature source Oral, resp. rate 16, height 1.6 m (5' 3 ), weight 48.5 kg (107 lb), SpO2 95 %. Exam Right lower extremity leg lengths are equal. Patient fires EHL/FHL/GAS/TA. Compartments are soft and compressible. Patient has minimal tenderness over the greater trochanter. There is a large hematoma on the lateral dependent area centered just posterior to the trochanter. Surrounding tissue was edematous and firm. There is mild fluctuance over the area of the ecchymotic lesion. Relevant Results Radiology Results (last ) Procedure Component Value Units Date/Time XR pelvis 1 or 2 views [[id number]] Resulted: 09/12/232045 Order Status: Sent Updated: 09/12/232046 XR chest AP portable [[id number]] Resulted: 09/12/231828 Order Status: Sent Updated: 09/12/231829 Results for orders placed or performed during the hospital encounter of 09/12/23 (from the past 24 hour(s)) CBC with automated diff Status: Abnormal Collection Time: 09/12/23 6:07 PM Result Value Ref Range WBC 13.2 (H) 4.0 - 10.0 K/??L RBC 2.85 (L) 3.93 - 5.22 M/??L Hemoglobin 8.5 (L) 11.2 - 15.7 GM/DL Hematocrit 23.6 (L) 34.1 - 44.9 % MCV 83 79 - 95 fL MCH 29.8 25.6 - 32.2 pg MCHC 36.0 (H) 32.2 - 35.5 GM/DL RDW 12.6 11.7 - 14.4 % Platelets 184 140 - 375 K/CU MM MPV 11.7 9.4 - 12.3 fL % Neutros 95 (H) 34 - 71 % % Lymphs 3 (L) 19 - 52 % % Monos 2 (L) 5 - 13 % % Eos 0 (L) 1 - 6 % % Baso 0 0 - 1 % NRBC Absolute <0.01 0 - 0.012 K/ul # Neutros 12.48 (H) 1.56 - 6.13 K/??L # Lymphs 0.38 (L) 1.18 - 3.74 K/??L # Monos 0.29 0.24 - 0.86 K/??L # Eos <0.03 (L) 0.04 - 0.36 K/??L # Baso <0.03 0.01 - 0.08 K/??L Immature Granulocytes-Relative 0.30 0.01 - 0.43 % # IG 0.04 (H) 0.00 - 0.03 K/uL Prothrombin time/INR Status: Normal Collection Time: 09/12/23 6:07 PM Result Value Ref Range Protime 10.9 9.0 - 12.0 seconds INR 0.99 0.80 - 1.10 aPTT Status: Normal Collection Time: 09/12/23 6:07 PM Result Value Ref Range PTT 23.2 22.0 - 32.0 seconds Lactic Acid with reflex Status: Normal Collection Time: 09/12/23 6:07 PM Result Value Ref Range Lactic Acid Level (mmol/L) 1.8 0.4 - 2.0 mmol/L CBC Scan Status: Normal Collection Time: 09/12/23 6:07 PM Result Value Ref Range Platelet Estimate Adequate Adequate RBC Morphology Normal Normal Comprehensive Metabolic Panel Status: Abnormal Collection Time: 09/12/23 6:08 PM Result Value Ref Range Sodium 121 (L) 136 - 146 meq/L Potassium 4.4 3.5 - 5.1 meq/L Chloride 88 (L) 102 - 112 meq/L CO2 27 21 - 32 meq/L Calcium 8.2 (L) 8.4 - 10.1 mg/dL Glucose 162 (H) 74 - 106 mg/dL BUN 30 (H) 7 - 22 mg/dL Creatinine 1.03 (H) 0.55 - 1.02 mg/dL BUN/Creatinine 29 (H) 8 - 20 Albumin 2.9 (L) 3.4 - 5.0 g/dL Alkaline Phosphatase 45 27 - 136 U/L ALT 163 (H) 13 - 56 U/L AST 216 (H) 5 - 37 U/L Total Bilirubin 0.9 0.2 - 1.2 mg/dL Protein, Total 5.2 (L) 6.4 - 8.2 gm/dL Anion Gap 10 9 - 20 A/G Ratio 1.3 1.1 - 2.5 Globulin 2.3 1.5 - 4.5 g/dL Osmolality Calc 253.8 eGFR (mL/min/1.73m2) 58 (L) >=60 mL/min/1.73m2 PROBNP Status: Abnormal Collection Time: 09/12/23 6:08 PM Result Value Ref Range ProBNP (pg/mL) 1,616 (H) 0 - 125 pg/mL High Sensitivity Troponin I Status: Normal Collection Time: 09/12/23 6:08 PM Result Value Ref Range Troponin I High Sensitivity (pg/mL) 13.1 3 - 58.8 pg/mL Procalcitonin Status: Normal Collection Time: 09/12/23 6:08 PM Result Value Ref Range Procalcitonin <0.14 <=0.50 ng/mL Blood Gas, Arterial Status: Abnormal Collection Time: 09/12/23 6:25 PM Result Value Ref Range pH, Arterial 7.51 (H) 7.35 - 7.45 pCO2, Arterial 34 (L) 35 - 45 mm Hg pO2, Arterial 68 (L) 80 - 100 mm Hg HCO3, Arterial 27 (H) 20 - 26 mmol/L Base Excess, Arterial 4.1 (H) -2.0 - 2.0 mmol/L O2 Sat, Arterial 95.7 95.0 - 100.0 % CTO2 ARTERIAL 11.9 mmol/L THB ARTERIAL 9.0 (L) 12.0 - 18.0 g/dL [facility] COLLECTION SITE Right Radial Arterial Puncture Yes Blood Gas PT Temperature C 37.0 Marques's Test Acceptable ABG Number of Draw Attempts 1 Comment room air Performed by: Agapito Coronel [employer] FIO2 Blood Gas Temperature Corrected Results No No ECG 12 lead Status: None (In process) Collection Time: 09/12/23 7:00 PM Result Value Ref Range VENTRICULAR RATE EKG/MIN 73 BPM ATRIAL RATE (MCT) 73 BPM DE Interval 130 ms QRS-INTERVAL (MSEC) 72 ms QT Interval 358 ms QTC Interval 394 ms P [place] 60 degrees R AXIS (MCT) 60 degrees T Wave [place] 60 degrees [place] Diagnosis Normal sinus rhythm Anterior infarct (cited on or before 12-SEP-2023) Abnormal ECG When compared with ECG of 12-SEP-2023 18:59, No significant change was found Urinalysis w/Microscopic Status: Abnormal Collection Time: 09/12/23 10:10 PM Result Value Ref Range Color, UA Yellow Clarity, UA Turbid (A) Clear Specific [place], UA 1.041 (H) 1.005 - 1.030 pH, UA 6.0 6.0 - 8.0 Leukocytes, UA Negative Negative Nitrite, UA Negative Negative Protein, UA 1+ (A) Negative Glucose, UA Normal Normal Ketones, UA Negative Negative Urobilinogen, UA Normal Normal Bilirubin, UA Negative Negative Blood, UA 3+ (A) Negative RBC, UA 0-2 (A) None Seen /HPF WBC, UA 11-20 (A) None Seen /HPF Bacteria, UA 1+ (A) None Seen, Trace Mucus 1+ (A) None Seen SQUAMOUS EPITHELIAL 3-5 (A) None Seen /HPF Specimen Source Urine, Voided Urine Drug Screen Status: Abnormal Collection Time: 09/12/23 10:10 PM Result Value Ref Range Amphetamine Urine Negative Negative Barbiturate Screen Negative Negative Benzodiazepine Screen Negative Negative Cocaine (Metab.) Screen Negative Negative Opiate Screen Positive (A) Negative Phencyclidine Screen Negative Negative Tricyclic Screen Negative Negative Tetrahydrocannabinol Negative Negative Creatinine, Ur 165.0 mg/dL pH, UA 5.5 (L) 6.0 - 8.0 CBC - Hemogram ([facility]) Status: Abnormal Collection Time: 09/13/23 1:48 AM Result Value Ref Range WBC 15.2 (H) 4.0 - 10.0 K/??L RBC 2.99 (L) 3.93 - 5.22 M/??L Hemoglobin 9.1 (L) 11.2 - 15.7 GM/DL Hematocrit 24.6 (L) 34.1 - 44.9 % MCV 82 79 - 95 fL MCH 30.4 25.6 - 32.2 pg MCHC 37.0 (H) 32.2 - 35.5 GM/DL RDW 12.5 11.7 - 14.4 % Platelets 205 140 - 375 K/CU MM MPV 11.6 9.4 - 12.3 fL Basic Metabolic Panel Status: Abnormal Collection Time: 09/13/23 1:48 AM Result Value Ref Range Sodium 122 (L) 136 - 146 meq/L Potassium 4.4 3.5 - 5.1 meq/L Chloride 90 (L) 102 - 112 meq/L CO2 26 21 - 32 meq/L Anion Gap 10 9 - 20 BUN 26 (H) 7 - 22 mg/dL Creatinine 0.87 0.55 - 1.02 mg/dL BUN/Creatinine 30 (H) 8 - 20 Glucose 128 (H) 74 - 106 mg/dL Calcium 8.0 (L) 8.4 - 10.1 mg/dL Osmolality Calc 252.3 eGFR (mL/min/1.73m2) >60 >=60 mL/min/1.73m2 Ammonia Status: Normal Collection Time: 09/13/23 1:48 AM Result Value Ref Range Ammonia 16 11 - 32 ??mol/L Lactic Acid with reflex (SJ) Status: Normal Collection Time: 09/13/23 1:48 AM Result Value Ref Range Lactic Acid Level (mmol/L) 1.0 0.4 - 2.0 mmol/L Procalcitonin Status: Normal Collection Time: 09/13/23 1:48 AM Result Value Ref Range Procalcitonin <0.14 <=0.50 ng/mL Assessment Right hip contusion with likely consolidated subcutaneous hematoma. No plan for surgical intervention. Radiographs negative for fracture Plan 1. Okay to be out of bed weightbearing as tolerated with assistance 2. Hematoma should hopefully resolve spontaneously. May benefit from heat/ice combination. Signed: Electronically signed by Franco Draper PA-C 09/13/23 7:53 AM EDT Cosigned by Crescencio Perkins MD at 09/16/2023 8:38 AM EDT documented in this encounter Miscellaneous Notes * Plan of Care - Lupe Gillespie RN - 09/25/2023 1:33 AM EDT Problem: Compromised Skin Integrity Goal: LTG - Patient will be free from infection Outcome: Progressing Goal: LTG - Patient will maintain/improve skin integrity through proper skin care techniques Outcome: Progressing Goal: LTG - Patient will demonstrate appropriate pressure relief techniques Outcome: Progressing Goal: LTG - Patient will demonstrate appropriate skin care techniques Outcome: Progressing Goal: LTG - Patient will be free from infection Outcome: Progressing Goal: STG - Patient demonstrates skin care/treatment/dressing change Outcome: Progressing Goal: STG - Patient will maintain good skin integrity Outcome: Progressing Goal: STG - Patient exhibits signs of wound healing. Outcome: Progressing Goal: STG - Patient demonstrates pressure reduction techniques Outcome: Progressing Goal: STG - Patient demonstrates preventative skin care measures Outcome: Progressing Problem: Knowledge Deficit Goal: Patient/family/caregiver demonstrates understanding of disease process, treatment plan, medications, and discharge instructions Description: Complete learning assessment and assess knowledge base. Outcome: Progressing Problem: Potential for Falls Goal: Patient will remain free of falls Description: Assess and monitor vitals signs, neurological status including level of consciousness and orientation. Reassess fall risk per hospital policy. Ensure arm band on, uncluttered walking paths in room, adequate room lighting, call light and overbed table within reach, bed in low position, wheels locked, side rails up per policy, and non-skid footwear provided. Outcome: Progressing Problem: Pain Goal: Patient's pain/discomfort is manageable Description: Assess and monitor patient's pain using appropriate pain scale. Collaborate with interdisciplinary team and initiate plan and interventions as ordered. Re-assess patient's pain level after pain management intervention. Outcome: Progressing Problem: Safety Goal: Patient will be injury free during hospitalization Description: Assess and monitor vitals signs, neurological status including level of consciousness and orientation. Assess patient's risk for falls and implement fall prevention plan of care and interventions per hospital policy. Ensure arm band on, uncluttered walking paths in room, adequate room lighting, call light and overbed table within reach, bed in low position, wheels locked, side rails up per policy, and non-skid footwear provided. Outcome: Progressing Problem: Potential for Developing a Blood Clot Goal: Tissue perfusion is adequate - venous Description: Assess and monitor skin color and temperature, skin integrity, pulses, capillary refill, edema, pain in extremities, Homans' sign, labs (D- dimer), and diagnostic tests (ultrasound, CT scan, VQ scan). Monitor for signs and symptoms of deep vein thrombosis (swelling of calf/thigh, redness, pain, tenderness). Monitor for signs and symptoms of pulmonary embolism (dyspnea, tachypnea, tachycardia). Collaborate with interdisciplinary team and initiate plans and interventions as needed Outcome: Progressing Problem: Daily Care Goal: Daily care needs are met Description: Assess and monitor ability to perform self care and identify potential discharge needs. Outcome: Progressing Problem: Potential for Infection Goal: Remains infection free Description: Assess and monitor vital signs, skin (color, moisture, integrity, turgor), respiratorystatus, urinary and gastrointestinal status, and labs (WBC, cultures). Administer antibiotics and antipyretics as ordered. Ensure aseptic care of all intravenous lines, invasive tubes/drains and wounds. Monitor for signs and symptoms of infection (redness, warmth, discharge, increased body temperature). Wash hands properly before and after each patient care activity. Follow isolation guidelines per hospital protocol/policy. Collaborate with interdisciplinary team and initiate plan and interventions as ordered. Outcome: Progressing Problem: Psychosocial Needs Goal: Demonstrates ability to cope with hospitalization/illness Description: Assess and monitor patients ability to cope with his/her illness. Outcome: Progressing Goal: Collaborate with patient/family/caregiver to identify patient specific goals for this hospitalization Outcome: Progressing Problem: Anxiety Goal: Anxiety is at manageable level Description: Assess and monitor patient's anxiety level. Monitor for signs and symptoms of anxiety both physical and emotional (heart palpitations, chest pain, shortness of breath, headaches, nausea,feeling jumpy, restlessness, irritable, apprehensive). Collaborate with interdisciplinary team and initiate plan and interventions as ordered. Outcome: Progressing Problem: Inadequate Coping Goal: Demonstrates ability to cope effectively Description: Patient is able to verbalize feelings related to emotional state. Outcome: Progressing Goal: Verbalizes adaptive coping mechanisms Description: Able to verbalize adaptive coping mechanisms such as physical activity, distraction, and deep breathing exercises. Outcome: Progressing Goal: Verbalizes personal strengths Description: Spend time with the patient using empathy and active listening skills. Outcome: Progressing Problem: Progressive Mobility Goal: BMAT Level 1 - With full mechanical lifting assistance: Outcome: Progressing Goal: BMAT Level 2 - With 2-person and/or mechanical lifting assistance: Outcome: Progressing Goal: BMAT Level 3 - With 1 to 2-person and/or mechanical lifting assistance: Outcome: Progressing Goal: BMAT Level 4 - With 1-person assistance or mobility aid as needed (walker, cane, crutches): Outcome: Progressing Problem: Discharge Barriers Goal: Patient's discharge needs are met Description: Collaborate with interdisciplinary team and initiate plans and interventions as needed. Outcome: Progressing * Plan of Care - Lupe Loza RN - 09/24/2023 3:25 PM EDT Problem: Compromised Skin Integrity Goal: LTG - Patient will be free from infection Outcome: Progressing Goal: LTG - Patient will maintain/improve skin integrity through proper skin care techniques Outcome: Progressing Goal: LTG - Patient will demonstrate appropriate pressure relief techniques Outcome: Progressing Goal: LTG - Patient will demonstrate appropriate skin care techniques Outcome: Progressing Goal: LTG - Patient will be free from infection Outcome: Progressing Goal: STG - Patient demonstrates skin care/treatment/dressing change Outcome: Progressing Goal: STG - Patient will maintain good skin integrity Outcome: Progressing Goal: STG - Patient exhibits signs of wound healing. Outcome: Progressing Goal: STG - Patient demonstrates pressure reduction techniques Outcome: Progressing Goal: STG - Patient demonstrates preventative skin care measures Outcome: Progressing Problem: Knowledge Deficit Goal: Patient/family/caregiver demonstrates understanding of disease process, treatment plan, medications, and discharge instructions Description: Complete learning assessment and assess knowledge base. Outcome: Progressing Problem: Potential for Falls Goal: Patient will remain free of falls Description: Assess and monitor vitals signs, neurological status including level of consciousness and orientation. Reassess fall risk per hospital policy. Ensure arm band on, uncluttered walking paths in room, adequate room lighting, call light and overbed table within reach, bed in low position, wheels locked, side rails up per policy, and non-skid footwear provided. Outcome: Progressing Problem: Pain Goal: Patient's pain/discomfort is manageable Description: Assess and monitor patient's pain using appropriate pain scale. Collaborate with interdisciplinary team and initiate plan and interventions as ordered. Re-assess patient's pain level after pain management intervention. Outcome: Progressing Problem: Safety Goal: Patient will be injury free during hospitalization Description: Assess and monitor vitals signs, neurological status including level of consciousness and orientation. Assess patient's risk for falls and implement fall prevention plan of care and interventions per hospital policy. Ensure arm band on, uncluttered walking paths in room, adequate room lighting, call light and overbed table within reach, bed in low position, wheels locked, side rails up per policy, and non-skid footwear provided. Outcome: Progressing Problem: Potential for Developing a Blood Clot Goal: Tissue perfusion is adequate - venous Description: Assess and monitor skin color and temperature, skin integrity, pulses, capillary refill, edema, pain in extremities, Homans' sign, labs (D- dimer), and diagnostic tests (ultrasound, CT scan, VQ scan). Monitor for signs and symptoms of deep vein thrombosis (swelling of calf/thigh, redness, pain, tenderness). Monitor for signs and symptoms of pulmonary embolism (dyspnea, tachypnea, tachycardia). Collaborate with interdisciplinary team and initiate plans and interventions as needed Outcome: Progressing Problem: Daily Care Goal: Daily care needs are met Description: Assess and monitor ability to perform self care and identify potential discharge needs. Outcome: Progressing Problem: Potential for Infection Goal: Remains infection free Description: Assess and monitor vital signs, skin (color, moisture, integrity, turgor), respiratorystatus, urinary and gastrointestinal status, and labs (WBC, cultures). Administer antibiotics and antipyretics as ordered. Ensure aseptic care of all intravenous lines, invasive tubes/drains and wounds. Monitor for signs and symptoms of infection (redness, warmth, discharge, increased body temperature). Wash hands properly before and after each patient care activity. Follow isolation guidelines per hospital protocol/policy. Collaborate with interdisciplinary team and initiate plan and interventions as ordered. Outcome: Progressing Problem: Psychosocial Needs Goal: Demonstrates ability to cope with hospitalization/illness Description: Assess and monitor patients ability to cope with his/her illness. Outcome: Progressing Goal: Collaborate with patient/family/caregiver to identify patient specific goals for this hospitalization Outcome: Progressing Problem: Anxiety Goal: Anxiety is at manageable level Description: Assess and monitor patient's anxiety level. Monitor for signs and symptoms of anxiety both physical and emotional (heart palpitations, chest pain, shortness of breath, headaches, nausea,feeling jumpy, restlessness, irritable, apprehensive). Collaborate with interdisciplinary team and initiate plan and interventions as ordered. Outcome: Progressing Problem: Inadequate Coping Goal: Demonstrates ability to cope effectively Description: Patient is able to verbalize feelings related to emotional state. Outcome: Progressing Goal: Verbalizes adaptive coping mechanisms Description: Able to verbalize adaptive coping mechanisms such as physical activity, distraction, and deep breathing exercises. Outcome: Progressing Goal: Verbalizes personal strengths Description: Spend time with the patient using empathy and active listening skills. Outcome: Progressing Problem: Progressive Mobility Goal: BMAT Level 1 - With full mechanical lifting assistance: Outcome: Progressing Goal: BMAT Level 2 - With 2-person and/or mechanical lifting assistance: Outcome: Progressing Goal: BMAT Level 3 - With 1 to 2-person and/or mechanical lifting assistance: Outcome: Progressing Goal: BMAT Level 4 - With 1-person assistance or mobility aid as needed (walker, cane, crutches): Outcome: Progressing Problem: Discharge Barriers Goal: Patient's discharge needs are met Description: Collaborate with interdisciplinary team and initiate plans and interventions as needed. Outcome: Progressing * Plan of Care - Lupe Gillespie RN - 09/24/2023 3:08 AM EDT Problem: Compromised Skin Integrity Goal: LTG - Patient will be free from infection Outcome: Progressing Goal: LTG - Patient will maintain/improve skin integrity through proper skin care techniques Outcome: Progressing Goal: LTG - Patient will demonstrate appropriate pressure relief techniques Outcome: Progressing Goal: LTG - Patient will demonstrate appropriate skin care techniques Outcome: Progressing Goal: LTG - Patient will be free from infection Outcome: Progressing Goal: STG - Patient demonstrates skin care/treatment/dressing change Outcome: Progressing Goal: STG - Patient will maintain good skin integrity Outcome: Progressing Goal: STG - Patient exhibits signs of wound healing. Outcome: Progressing Goal: STG - Patient demonstrates pressure reduction techniques Outcome: Progressing Goal: STG - Patient demonstrates preventative skin care measures Outcome: Progressing Problem: Knowledge Deficit Goal: Patient/family/caregiver demonstrates understanding of disease process, treatment plan, medications, and discharge instructions Description: Complete learning assessment and assess knowledge base. Outcome: Progressing Problem: Potential for Falls Goal: Patient will remain free of falls Description: Assess and monitor vitals signs, neurological status including level of consciousness and orientation. Reassess fall risk per hospital policy. Ensure arm band on, uncluttered walking paths in room, adequate room lighting, call light and overbed table within reach, bed in low position, wheels locked, side rails up per policy, and non-skid footwear provided. Outcome: Progressing Problem: Pain Goal: Patient's pain/discomfort is manageable Description: Assess and monitor patient's pain using appropriate pain scale. Collaborate with interdisciplinary team and initiate plan and interventions as ordered. Re-assess patient's pain level after pain management intervention. Outcome: Progressing Problem: Safety Goal: Patient will be injury free during hospitalization Description: Assess and monitor vitals signs, neurological status including level of consciousness and orientation. Assess patient's risk for falls and implement fall prevention plan of care and interventions per hospital policy. Ensure arm band on, uncluttered walking paths in room, adequate room lighting, call light and overbed table within reach, bed in low position, wheels locked, side rails up per policy, and non-skid footwear provided. Outcome: Progressing Problem: Potential for Developing a Blood Clot Goal: Tissue perfusion is adequate - venous Description: Assess and monitor skin color and temperature, skin integrity, pulses, capillary refill, edema, pain in extremities, Homans' sign, labs (D- dimer), and diagnostic tests (ultrasound, CT scan, VQ scan). Monitor for signs and symptoms of deep vein thrombosis (swelling of calf/thigh, redness, pain, tenderness). Monitor for signs and symptoms of pulmonary embolism (dyspnea, tachypnea, tachycardia). Collaborate with interdisciplinary team and initiate plans and interventions as needed Outcome: Progressing Problem: Daily Care Goal: Daily care needs are met Description: Assess and monitor ability to perform self care and identify potential discharge needs. Outcome: Progressing Problem: Potential for Infection Goal: Remains infection free Description: Assess and monitor vital signs, skin (color, moisture, integrity, turgor), respiratorystatus, urinary and gastrointestinal status, and labs (WBC, cultures). Administer antibiotics and antipyretics as ordered. Ensure aseptic care of all intravenous lines, invasive tubes/drains and wounds. Monitor for signs and symptoms of infection (redness, warmth, discharge, increased body temperature). Wash hands properly before and after each patient care activity. Follow isolation guidelines per hospital protocol/policy. Collaborate with interdisciplinary team and initiate plan and interventions as ordered. Outcome: Progressing Problem: Psychosocial Needs Goal: Demonstrates ability to cope with hospitalization/illness Description: Assess and monitor patients ability to cope with his/her illness. Outcome: Progressing Goal: Collaborate with patient/family/caregiver to identify patient specific goals for this hospitalization Outcome: Progressing Problem: Anxiety Goal: Anxiety is at manageable level Description: Assess and monitor patient's anxiety level. Monitor for signs and symptoms of anxiety both physical and emotional (heart palpitations, chest pain, shortness of breath, headaches, nausea,feeling jumpy, restlessness, irritable, apprehensive). Collaborate with interdisciplinary team and initiate plan and interventions as ordered. Outcome: Progressing Problem: Inadequate Coping Goal: Demonstrates ability to cope effectively Description: Patient is able to verbalize feelings related to emotional state. Outcome: Progressing Goal: Verbalizes adaptive coping mechanisms Description: Able to verbalize adaptive coping mechanisms such as physical activity, distraction, and deep breathing exercises. Outcome: Progressing Goal: Verbalizes personal strengths Description: Spend time with the patient using empathy and active listening skills. Outcome: Progressing Problem: Progressive Mobility Goal: BMAT Level 1 - With full mechanical lifting assistance: Outcome: Progressing Goal: BMAT Level 2 - With 2-person and/or mechanical lifting assistance: Outcome: Progressing Goal: BMAT Level 3 - With 1 to 2-person and/or mechanical lifting assistance: Outcome: Progressing Goal: BMAT Level 4 - With 1-person assistance or mobility aid as needed (walker, cane, crutches): Outcome: Progressing Problem: Discharge Barriers Goal: Patient's discharge needs are met Description: Collaborate with interdisciplinary team and initiate plans and interventions as needed. Outcome: Progressing * Plan of Care - Lupe Gillespie RN - 09/23/2023 2:23 AM EDT Problem: Compromised Skin Integrity Goal: LTG - Patient will be free from infection Outcome: Progressing Goal: LTG - Patient will maintain/improve skin integrity through proper skin care techniques Outcome: Progressing Goal: LTG - Patient will demonstrate appropriate pressure relief techniques Outcome: Progressing Goal: LTG - Patient will demonstrate appropriate skin care techniques Outcome: Progressing Goal: LTG - Patient will be free from infection Outcome: Progressing Goal: STG - Patient demonstrates skin care/treatment/dressing change Outcome: Progressing Goal: STG - Patient will maintain good skin integrity Outcome: Progressing Goal: STG - Patient exhibits signs of wound healing. Outcome: Progressing Goal: STG - Patient demonstrates pressure reduction techniques Outcome: Progressing Goal: STG - Patient demonstrates preventative skin care measures Outcome: Progressing Problem: Knowledge Deficit Goal: Patient/family/caregiver demonstrates understanding of disease process, treatment plan, medications, and discharge instructions Description: Complete learning assessment and assess knowledge base. Outcome: Progressing Problem: Potential for Falls Goal: Patient will remain free of falls Description: Assess and monitor vitals signs, neurological status including level of consciousness and orientation. Reassess fall risk per hospital policy. Ensure arm band on, uncluttered walking paths in room, adequate room lighting, call light and overbed table within reach, bed in low position, wheels locked, side rails up per policy, and non-skid footwear provided. Outcome: Progressing Problem: Pain Goal: Patient's pain/discomfort is manageable Description: Assess and monitor patient's pain using appropriate pain scale. Collaborate with interdisciplinary team and initiate plan and interventions as ordered. Re-assess patient's pain level after pain management intervention. Outcome: Progressing Problem: Safety Goal: Patient will be injury free during hospitalization Description: Assess and monitor vitals signs, neurological status including level of consciousness and orientation. Assess patient's risk for falls and implement fall prevention plan of care and interventions per hospital policy. Ensure arm band on, uncluttered walking paths in room, adequate room lighting, call light and overbed table within reach, bed in low position, wheels locked, side rails up per policy, and non-skid footwear provided. Outcome: Progressing Problem: Potential for Developing a Blood Clot Goal: Tissue perfusion is adequate - venous Description: Assess and monitor skin color and temperature, skin integrity, pulses, capillary refill, edema, pain in extremities, Homans' sign, labs (D- dimer), and diagnostic tests (ultrasound, CT scan, VQ scan). Monitor for signs and symptoms of deep vein thrombosis (swelling of calf/thigh, redness, pain, tenderness). Monitor for signs and symptoms of pulmonary embolism (dyspnea, tachypnea, tachycardia). Collaborate with interdisciplinary team and initiate plans and interventions as needed Outcome: Progressing Problem: Daily Care Goal: Daily care needs are met Description: Assess and monitor ability to perform self care and identify potential discharge needs. Outcome: Progressing Problem: Potential for Infection Goal: Remains infection free Description: Assess and monitor vital signs, skin (color, moisture, integrity, turgor), respiratorystatus, urinary and gastrointestinal status, and labs (WBC, cultures). Administer antibiotics and antipyretics as ordered. Ensure aseptic care of all intravenous lines, invasive tubes/drains and wounds. Monitor for signs and symptoms of infection (redness, warmth, discharge, increased body temperature). Wash hands properly before and after each patient care activity. Follow isolation guidelines per hospital protocol/policy. Collaborate with interdisciplinary team and initiate plan and interventions as ordered. Outcome: Progressing Problem: Psychosocial Needs Goal: Demonstrates ability to cope with hospitalization/illness Description: Assess and monitor patients ability to cope with his/her illness. Outcome: Progressing Goal: Collaborate with patient/family/caregiver to identify patient specific goals for this hospitalization Outcome: Progressing Problem: Anxiety Goal: Anxiety is at manageable level Description: Assess and monitor patient's anxiety level. Monitor for signs and symptoms of anxiety both physical and emotional (heart palpitations, chest pain, shortness of breath, headaches, nausea,feeling jumpy, restlessness, irritable, apprehensive). Collaborate with interdisciplinary team and initiate plan and interventions as ordered. Outcome: Progressing Problem: Inadequate Coping Goal: Demonstrates ability to cope effectively Description: Patient is able to verbalize feelings related to emotional state. Outcome: Progressing Goal: Verbalizes adaptive coping mechanisms Description: Able to verbalize adaptive coping mechanisms such as physical activity, distraction, and deep breathing exercises. Outcome: Progressing Goal: Verbalizes personal strengths Description: Spend time with the patient using empathy and active listening skills. Outcome: Progressing Problem: Progressive Mobility Goal: BMAT Level 1 - With full mechanical lifting assistance: Outcome: Progressing Goal: BMAT Level 2 - With 2-person and/or mechanical lifting assistance: Outcome: Progressing Goal: BMAT Level 3 - With 1 to 2-person and/or mechanical lifting assistance: Outcome: Progressing Goal: BMAT Level 4 - With 1-person assistance or mobility aid as needed (walker, cane, crutches): Outcome: Progressing Problem: Discharge Barriers Goal: Patient's discharge needs are met Description: Collaborate with interdisciplinary team and initiate plans and interventions as needed. Outcome: Progressing * Plan of Care - Ericka Horowitz RN - 09/22/2023 8:56 AM EDT Problem: Compromised Skin Integrity Goal: LTG - Patient will be free from infection Outcome: Progressing Goal: LTG - Patient will maintain/improve skin integrity through proper skin care techniques Outcome: Progressing Goal: LTG - Patient will demonstrate appropriate pressure relief techniques Outcome: Progressing Goal: LTG - Patient will demonstrate appropriate skin care techniques Outcome: Progressing Goal: LTG - Patient will be free from infection Outcome: Progressing Goal: STG - Patient demonstrates skin care/treatment/dressing change Outcome: Progressing Goal: STG - Patient will maintain good skin integrity Outcome: Progressing Goal: STG - Patient exhibits signs of wound healing. Outcome: Progressing Goal: STG - Patient demonstrates pressure reduction techniques Outcome: Progressing Goal: STG - Patient demonstrates preventative skin care measures Outcome: Progressing Problem: Knowledge Deficit Goal: Patient/family/caregiver demonstrates understanding of disease process, treatment plan, medications, and discharge instructions Description: Complete learning assessment and assess knowledge base. Outcome: Progressing Problem: Potential for Falls Goal: Patient will remain free of falls Description: Assess and monitor vitals signs, neurological status including level of consciousness and orientation. Reassess fall risk per hospital policy. Ensure arm band on, uncluttered walking paths in room, adequate room lighting, call light and overbed table within reach, bed in low position, wheels locked, side rails up per policy, and non-skid footwear provided. Outcome: Progressing Problem: Pain Goal: Patient's pain/discomfort is manageable Description: Assess and monitor patient's pain using appropriate pain scale. Collaborate with interdisciplinary team and initiate plan and interventions as ordered. Re-assess patient's pain level after pain management intervention. Outcome: Progressing Problem: Safety Goal: Patient will be injury free during hospitalization Description: Assess and monitor vitals signs, neurological status including level of consciousness and orientation. Assess patient's risk for falls and implement fall prevention plan of care and interventions per hospital policy. Ensure arm band on, uncluttered walking paths in room, adequate room lighting, call light and overbed table within reach, bed in low position, wheels locked, side rails up per policy, and non-skid footwear provided. Outcome: Progressing Problem: Potential for Developing a Blood Clot Goal: Tissue perfusion is adequate - venous Description: Assess and monitor skin color and temperature, skin integrity, pulses, capillary refill, edema, pain in extremities, Homans' sign, labs (D- dimer), and diagnostic tests (ultrasound, CT scan, VQ scan). Monitor for signs and symptoms of deep vein thrombosis (swelling of calf/thigh, redness, pain, tenderness). Monitor for signs and symptoms of pulmonary embolism (dyspnea, tachypnea, tachycardia). Collaborate with interdisciplinary team and initiate plans and interventions as needed Outcome: Progressing Problem: Daily Care Goal: Daily care needs are met Description: Assess and monitor ability to perform self care and identify potential discharge needs. Outcome: Progressing Problem: Potential for Infection Goal: Remains infection free Description: Assess and monitor vital signs, skin (color, moisture, integrity, turgor), respiratorystatus, urinary and gastrointestinal status, and labs (WBC, cultures). Administer antibiotics and antipyretics as ordered. Ensure aseptic care of all intravenous lines, invasive tubes/drains and wounds. Monitor for signs and symptoms of infection (redness, warmth, discharge, increased body temperature). Wash hands properly before and after each patient care activity. Follow isolation guidelines per hospital protocol/policy. Collaborate with interdisciplinary team and initiate plan and interventions as ordered. Outcome: Progressing Problem: Psychosocial Needs Goal: Demonstrates ability to cope with hospitalization/illness Description: Assess and monitor patients ability to cope with his/her illness. Outcome: Progressing Goal: Collaborate with patient/family/caregiver to identify patient specific goals for this hospitalization Outcome: Progressing Problem: Anxiety Goal: Anxiety is at manageable level Description: Assess and monitor patient's anxiety level. Monitor for signs and symptoms of anxiety both physical and emotional (heart palpitations, chest pain, shortness of breath, headaches, nausea,feeling jumpy, restlessness, irritable, apprehensive). Collaborate with interdisciplinary team and initiate plan and interventions as ordered. Outcome: Progressing Problem: Inadequate Coping Goal: Demonstrates ability to cope effectively Description: Patient is able to verbalize feelings related to emotional state. Outcome: Progressing Goal: Verbalizes adaptive coping mechanisms Description: Able to verbalize adaptive coping mechanisms such as physical activity, distraction, and deep breathing exercises. Outcome: Progressing Goal: Verbalizes personal strengths Description: Spend time with the patient using empathy and active listening skills. Outcome: Progressing Problem: Progressive Mobility Goal: BMAT Level 1 - With full mechanical lifting assistance: Outcome: Progressing Goal: BMAT Level 2 - With 2-person and/or mechanical lifting assistance: Outcome: Progressing Goal: BMAT Level 3 - With 1 to 2-person and/or mechanical lifting assistance: Outcome: Progressing Goal: BMAT Level 4 - With 1-person assistance or mobility aid as needed (walker, cane, crutches): Outcome: Progressing Problem: Discharge Barriers Goal: Patient's discharge needs are met Description: Collaborate with interdisciplinary team and initiate plans and interventions as needed. Outcome: Progressing * Plan of Care - Mary Moore RN - 09/21/2023 10:28 PM EDT Problem: Compromised Skin Integrity Goal: LTG - Patient will be free from infection Outcome: Progressing Goal: LTG - Patient will maintain/improve skin integrity through proper skin care techniques Outcome: Progressing Goal: LTG - Patient will demonstrate appropriate pressure relief techniques Outcome: Progressing Goal: LTG - Patient will demonstrate appropriate skin care techniques Outcome: Progressing Goal: LTG - Patient will be free from infection Outcome: Progressing Goal: STG - Patient demonstrates skin care/treatment/dressing change Outcome: Progressing Goal: STG - Patient will maintain good skin integrity Outcome: Progressing Goal: STG - Patient exhibits signs of wound healing. Outcome: Progressing Goal: STG - Patient demonstrates pressure reduction techniques Outcome: Progressing Goal: STG - Patient demonstrates preventative skin care measures Outcome: Progressing Problem: Knowledge Deficit Goal: Patient/family/caregiver demonstrates understanding of disease process, treatment plan, medications, and discharge instructions Description: Complete learning assessment and assess knowledge base. Outcome: Progressing Problem: Potential for Falls Goal: Patient will remain free of falls Description: Assess and monitor vitals signs, neurological status including level of consciousness and orientation. Reassess fall risk per hospital policy. Ensure arm band on, uncluttered walking paths in room, adequate room lighting, call light and overbed table within reach, bed in low position, wheels locked, side rails up per policy, and non-skid footwear provided. Outcome: Progressing Problem: Pain Goal: Patient's pain/discomfort is manageable Description: Assess and monitor patient's pain using appropriate pain scale. Collaborate with interdisciplinary team and initiate plan and interventions as ordered. Re-assess patient's pain level after pain management intervention. Outcome: Progressing Problem: Safety Goal: Patient will be injury free during hospitalization Description: Assess and monitor vitals signs, neurological status including level of consciousness and orientation. Assess patient's risk for falls and implement fall prevention plan of care and interventions per hospital policy. Ensure arm band on, uncluttered walking paths in room, adequate room lighting, call light and overbed table within reach, bed in low position, wheels locked, side rails up per policy, and non-skid footwear provided. Outcome: Progressing Problem: Potential for Developing a Blood Clot Goal: Tissue perfusion is adequate - venous Description: Assess and monitor skin color and temperature, skin integrity, pulses, capillary refill, edema, pain in extremities, Homans' sign, labs (D- dimer), and diagnostic tests (ultrasound, CT scan, VQ scan). Monitor for signs and symptoms of deep vein thrombosis (swelling of calf/thigh, redness, pain, tenderness). Monitor for signs and symptoms of pulmonary embolism (dyspnea, tachypnea, tachycardia). Collaborate with interdisciplinary team and initiate plans and interventions as needed Outcome: Progressing Problem: Daily Care Goal: Daily care needs are met Description: Assess and monitor ability to perform self care and identify potential discharge needs. Outcome: Progressing Problem: Potential for Infection Goal: Remains infection free Description: Assess and monitor vital signs, skin (color, moisture, integrity, turgor), respiratorystatus, urinary and gastrointestinal status, and labs (WBC, cultures). Administer antibiotics and antipyretics as ordered. Ensure aseptic care of all intravenous lines, invasive tubes/drains and wounds. Monitor for signs and symptoms of infection (redness, warmth, discharge, increased body temperature). Wash hands properly before and after each patient care activity. Follow isolation guidelines per hospital protocol/policy. Collaborate with interdisciplinary team and initiate plan and interventions as ordered. Outcome: Progressing Problem: Psychosocial Needs Goal: Demonstrates ability to cope with hospitalization/illness Description: Assess and monitor patients ability to cope with his/her illness. Outcome: Progressing Goal: Collaborate with patient/family/caregiver to identify patient specific goals for this hospitalization Outcome: Progressing Problem: Anxiety Goal: Anxiety is at manageable level Description: Assess and monitor patient's anxiety level. Monitor for signs and symptoms of anxiety both physical and emotional (heart palpitations, chest pain, shortness of breath, headaches, nausea,feeling jumpy, restlessness, irritable, apprehensive). Collaborate with interdisciplinary team and initiate plan and interventions as ordered. Outcome: Progressing Problem: Inadequate Coping Goal: Demonstrates ability to cope effectively Description: Patient is able to verbalize feelings related to emotional state. Outcome: Progressing Goal: Verbalizes adaptive coping mechanisms Description: Able to verbalize adaptive coping mechanisms such as physical activity, distraction, and deep breathing exercises. Outcome: Progressing Goal: Verbalizes personal strengths Description: Spend time with the patient using empathy and active listening skills. Outcome: Progressing Problem: Progressive Mobility Goal: BMAT Level 1 - With full mechanical lifting assistance: Outcome: Progressing Goal: BMAT Level 2 - With 2-person and/or mechanical lifting assistance: Outcome: Progressing Goal: BMAT Level 3 - With 1 to 2-person and/or mechanical lifting assistance: Outcome: Progressing Goal: BMAT Level 4 - With 1-person assistance or mobility aid as needed (walker, cane, crutches): Outcome: Progressing Problem: Discharge Barriers Goal: Patient's discharge needs are met Description: Collaborate with interdisciplinary team and initiate plans and interventions as needed. Outcome: Progressing * Nursing Progress Notes - Gilma Martinez RN - 09/21/2023 12:44 PM EDT Report called to Anthony at [place] * Plan of Care - Gilma Martinez RN - 09/21/2023 11:41 AM EDT Problem: Compromised Skin Integrity Goal: LTG - Patient will be free from infection Outcome: Progressing Goal: LTG - Patient will maintain/improve skin integrity through proper skin care techniques Outcome: Progressing Goal: LTG - Patient will demonstrate appropriate pressure relief techniques Outcome: Progressing Goal: LTG - Patient will demonstrate appropriate skin care techniques Outcome: Progressing Goal: LTG - Patient will be free from infection Outcome: Progressing Goal: STG - Patient demonstrates skin care/treatment/dressing change Outcome: Progressing Goal: STG - Patient will maintain good skin integrity Outcome: Progressing Goal: STG - Patient exhibits signs of wound healing. Outcome: Progressing Goal: STG - Patient demonstrates pressure reduction techniques Outcome: Progressing Goal: STG - Patient demonstrates preventative skin care measures Outcome: Progressing Problem: Knowledge Deficit Goal: Patient/family/caregiver demonstrates understanding of disease process, treatment plan, medications, and discharge instructions Description: Complete learning assessment and assess knowledge base. Outcome: Progressing Problem: Potential for Falls Goal: Patient will remain free of falls Description: Assess and monitor vitals signs, neurological status including level of consciousness and orientation. Reassess fall risk per hospital policy. Ensure arm band on, uncluttered walking paths in room, adequate room lighting, call light and overbed table within reach, bed in low position, wheels locked, side rails up per policy, and non-skid footwear provided. Outcome: Progressing Problem: Pain Goal: Patient's pain/discomfort is manageable Description: Assess and monitor patient's pain using appropriate pain scale. Collaborate with interdisciplinary team and initiate plan and interventions as ordered. Re-assess patient's pain level after pain management intervention. Outcome: Progressing Problem: Safety Goal: Patient will be injury free during hospitalization Description: Assess and monitor vitals signs, neurological status including level of consciousness and orientation. Assess patient's risk for falls and implement fall prevention plan of care and interventions per hospital policy. Ensure arm band on, uncluttered walking paths in room, adequate room lighting, call light and overbed table within reach, bed in low position, wheels locked, side rails up per policy, and non-skid footwear provided. Outcome: Progressing Problem: Potential for Developing a Blood Clot Goal: Tissue perfusion is adequate - venous Description: Assess and monitor skin color and temperature, skin integrity, pulses, capillary refill, edema, pain in extremities, Homans' sign, labs (D- dimer), and diagnostic tests (ultrasound, CT scan, VQ scan). Monitor for signs and symptoms of deep vein thrombosis (swelling of calf/thigh, redness, pain, tenderness). Monitor for signs and symptoms of pulmonary embolism (dyspnea, tachypnea, tachycardia). Collaborate with interdisciplinary team and initiate plans and interventions as needed Outcome: Progressing Problem: Daily Care Goal: Daily care needs are met Description: Assess and monitor ability to perform self care and identify potential discharge needs. Outcome: Progressing Problem: Potential for Infection Goal: Remains infection free Description: Assess and monitor vital signs, skin (color, moisture, integrity, turgor), respiratorystatus, urinary and gastrointestinal status, and labs (WBC, cultures). Administer antibiotics and antipyretics as ordered. Ensure aseptic care of all intravenous lines, invasive tubes/drains and wounds. Monitor for signs and symptoms of infection (redness, warmth, discharge, increased body temperature). Wash hands properly before and after each patient care activity. Follow isolation guidelines per hospital protocol/policy. Collaborate with interdisciplinary team and initiate plan and interventions as ordered. Outcome: Progressing Problem: Psychosocial Needs Goal: Demonstrates ability to cope with hospitalization/illness Description: Assess and monitor patients ability to cope with his/her illness. Outcome: Progressing Goal: Collaborate with patient/family/caregiver to identify patient specific goals for this hospitalization Outcome: Progressing Problem: Anxiety Goal: Anxiety is at manageable level Description: Assess and monitor patient's anxiety level. Monitor for signs and symptoms of anxiety both physical and emotional (heart palpitations, chest pain, shortness of breath, headaches, nausea,feeling jumpy, restlessness, irritable, apprehensive). Collaborate with interdisciplinary team and initiate plan and interventions as ordered. Outcome: Progressing Problem: Inadequate Coping Goal: Demonstrates ability to cope effectively Description: Patient is able to verbalize feelings related to emotional state. Outcome: Progressing Goal: Verbalizes adaptive coping mechanisms Description: Able to verbalize adaptive coping mechanisms such as physical activity, distraction, and deep breathing exercises. Outcome: Progressing Goal: Verbalizes personal strengths Description: Spend time with the patient using empathy and active listening skills. Outcome: Progressing Problem: Progressive Mobility Goal: BMAT Level 1 - With full mechanical lifting assistance: Outcome: Progressing Goal: BMAT Level 2 - With 2-person and/or mechanical lifting assistance: Outcome: Progressing Goal: BMAT Level 3 - With 1 to 2-person and/or mechanical lifting assistance: Outcome: Progressing Goal: BMAT Level 4 - With 1-person assistance or mobility aid as needed (walker, cane, crutches): Outcome: Progressing Problem: Discharge Barriers Goal: Patient's discharge needs are met Description: Collaborate with interdisciplinary team and initiate plans and interventions as needed. Outcome: Progressing * Plan of Care - Mary Moore RN - 09/20/2023 11:12 PM EDT Problem: Compromised Skin Integrity Goal: LTG - Patient will be free from infection Outcome: Progressing Goal: LTG - Patient will maintain/improve skin integrity through proper skin care techniques Outcome: Progressing Goal: LTG - Patient will demonstrate appropriate pressure relief techniques Outcome: Progressing Goal: LTG - Patient will demonstrate appropriate skin care techniques Outcome: Progressing Goal: LTG - Patient will be free from infection Outcome: Progressing Goal: STG - Patient demonstrates skin care/treatment/dressing change Outcome: Progressing Goal: STG - Patient will maintain good skin integrity Outcome: Progressing Goal: STG - Patient exhibits signs of wound healing. Outcome: Progressing Goal: STG - Patient demonstrates pressure reduction techniques Outcome: Progressing Goal: STG - Patient demonstrates preventative skin care measures Outcome: Progressing Problem: Knowledge Deficit Goal: Patient/family/caregiver demonstrates understanding of disease process, treatment plan, medications, and discharge instructions Description: Complete learning assessment and assess knowledge base. Outcome: Progressing Problem: Potential for Falls Goal: Patient will remain free of falls Description: Assess and monitor vitals signs, neurological status including level of consciousness and orientation. Reassess fall risk per hospital policy. Ensure arm band on, uncluttered walking paths in room, adequate room lighting, call light and overbed table within reach, bed in low position, wheels locked, side rails up per policy, and non-skid footwear provided. Outcome: Progressing Problem: Pain Goal: Patient's pain/discomfort is manageable Description: Assess and monitor patient's pain using appropriate pain scale. Collaborate with interdisciplinary team and initiate plan and interventions as ordered. Re-assess patient's pain level after pain management intervention. Outcome: Progressing Problem: Safety Goal: Patient will be injury free during hospitalization Description: Assess and monitor vitals signs, neurological status including level of consciousness and orientation. Assess patient's risk for falls and implement fall prevention plan of care and interventions per hospital policy. Ensure arm band on, uncluttered walking paths in room, adequate room lighting, call light and overbed table within reach, bed in low position, wheels locked, side rails up per policy, and non-skid footwear provided. Outcome: Progressing Problem: Potential for Developing a Blood Clot Goal: Tissue perfusion is adequate - venous Description: Assess and monitor skin color and temperature, skin integrity, pulses, capillary refill, edema, pain in extremities, Homans' sign, labs (D- dimer), and diagnostic tests (ultrasound, CT scan, VQ scan). Monitor for signs and symptoms of deep vein thrombosis (swelling of calf/thigh, redness, pain, tenderness). Monitor for signs and symptoms of pulmonary embolism (dyspnea, tachypnea, tachycardia). Collaborate with interdisciplinary team and initiate plans and interventions as needed Outcome: Progressing Problem: Daily Care Goal: Daily care needs are met Description: Assess and monitor ability to perform self care and identify potential discharge needs. Outcome: Progressing Problem: Potential for Infection Goal: Remains infection free Description: Assess and monitor vital signs, skin (color, moisture, integrity, turgor), respiratorystatus, urinary and gastrointestinal status, and labs (WBC, cultures). Administer antibiotics and antipyretics as ordered. Ensure aseptic care of all intravenous lines, invasive tubes/drains and wounds. Monitor for signs and symptoms of infection (redness, warmth, discharge, increased body temperature). Wash hands properly before and after each patient care activity. Follow isolation guidelines per hospital protocol/policy. Collaborate with interdisciplinary team and initiate plan and interventions as ordered. Outcome: Progressing Problem: Psychosocial Needs Goal: Demonstrates ability to cope with hospitalization/illness Description: Assess and monitor patients ability to cope with his/her illness. Outcome: Progressing Goal: Collaborate with patient/family/caregiver to identify patient specific goals for this hospitalization Outcome: Progressing Problem: Anxiety Goal: Anxiety is at manageable level Description: Assess and monitor patient's anxiety level. Monitor for signs and symptoms of anxiety both physical and emotional (heart palpitations, chest pain, shortness of breath, headaches, nausea,feeling jumpy, restlessness, irritable, apprehensive). Collaborate with interdisciplinary team and initiate plan and interventions as ordered. Outcome: Progressing Problem: Inadequate Coping Goal: Demonstrates ability to cope effectively Description: Patient is able to verbalize feelings related to emotional state. Outcome: Progressing Goal: Verbalizes adaptive coping mechanisms Description: Able to verbalize adaptive coping mechanisms such as physical activity, distraction, and deep breathing exercises. Outcome: Progressing Goal: Verbalizes personal strengths Description: Spend time with the patient using empathy and active listening skills. Outcome: Progressing Problem: Progressive Mobility Goal: BMAT Level 1 - With full mechanical lifting assistance: Outcome: Progressing Goal: BMAT Level 2 - With 2-person and/or mechanical lifting assistance: Outcome: Progressing Goal: BMAT Level 3 - With 1 to 2-person and/or mechanical lifting assistance: Outcome: Progressing Goal: BMAT Level 4 - With 1-person assistance or mobility aid as needed (walker, cane, crutches): Outcome: Progressing Problem: Discharge Barriers Goal: Patient's discharge needs are met Description: Collaborate with interdisciplinary team and initiate plans and interventions as needed. Outcome: Progressing * Plan of Care - Delphine Mathur PA-C - 09/20/2023 11:35 AM [place]: Vascular Plan of Care Ms. Estrada is a 73 year old female found to have right peroneal and soleal vein DVT this admission.She has been started on therapeutic lovenox 1mg/kg BID. She last required pRBC transfusion 09/17/23 and Hgb has remained low but stable since that time. Recommend continuing therapeutic anticoagulation. If felt by the other teams that she is unable to tolerate anticoagulation then could consider IVC filter. No urgent vascular intervention recommended if tolerating anticoagulation. Vascular will follow peripherally weekly. Please contact with questions or concerns. She is scheduled for follow up 12/13/23 at 11am with right lower extremity venous duplex. Electronically signed by Delphine Mathur PA-C - 09/20/2023 - 11:39 AM EDT Cosigned by Junior Helio MD at 10/21/2023 10:44 AM EDT * Plan of Care - Mary Moore RN - 09/19/2023 10:57 PM EDT Problem: Compromised Skin Integrity Goal: LTG - Patient will be free from infection Outcome: Progressing Goal: LTG - Patient will maintain/improve skin integrity through proper skin care techniques Outcome: Progressing Goal: LTG - Patient will demonstrate appropriate pressure relief techniques Outcome: Progressing Goal: LTG - Patient will demonstrate appropriate skin care techniques Outcome: Progressing Goal: LTG - Patient will be free from infection Outcome: Progressing Goal: STG - Patient demonstrates skin care/treatment/dressing change Outcome: Progressing Goal: STG - Patient will maintain good skin integrity Outcome: Progressing Goal: STG - Patient exhibits signs of wound healing. Outcome: Progressing Goal: STG - Patient demonstrates pressure reduction techniques Outcome: Progressing Goal: STG - Patient demonstrates preventative skin care measures Outcome: Progressing Problem: Knowledge Deficit Goal: Patient/family/caregiver demonstrates understanding of disease process, treatment plan, medications, and discharge instructions Description: Complete learning assessment and assess knowledge base. Outcome: Progressing Problem: Potential for Falls Goal: Patient will remain free of falls Description: Assess and monitor vitals signs, neurological status including level of consciousness and orientation. Reassess fall risk per hospital policy. Ensure arm band on, uncluttered walking paths in room, adequate room lighting, call light and overbed table within reach, bed in low position, wheels locked, side rails up per policy, and non-skid footwear provided. Outcome: Progressing Problem: Pain Goal: Patient's pain/discomfort is manageable Description: Assess and monitor patient's pain using appropriate pain scale. Collaborate with interdisciplinary team and initiate plan and interventions as ordered. Re-assess patient's pain level after pain management intervention. Outcome: Progressing Problem: Safety Goal: Patient will be injury free during hospitalization Description: Assess and monitor vitals signs, neurological status including level of consciousness and orientation. Assess patient's risk for falls and implement fall prevention plan of care and interventions per hospital policy. Ensure arm band on, uncluttered walking paths in room, adequate room lighting, call light and overbed table within reach, bed in low position, wheels locked, side rails up per policy, and non-skid footwear provided. Outcome: Progressing Problem: Potential for Developing a Blood Clot Goal: Tissue perfusion is adequate - venous Description: Assess and monitor skin color and temperature, skin integrity, pulses, capillary refill, edema, pain in extremities, Homans' sign, labs (D- dimer), and diagnostic tests (ultrasound, CT scan, VQ scan). Monitor for signs and symptoms of deep vein thrombosis (swelling of calf/thigh, redness, pain, tenderness). Monitor for signs and symptoms of pulmonary embolism (dyspnea, tachypnea, tachycardia). Collaborate with interdisciplinary team and initiate plans and interventions as needed Outcome: Progressing Problem: Daily Care Goal: Daily care needs are met Description: Assess and monitor ability to perform self care and identify potential discharge needs. Outcome: Progressing Problem: Potential for Infection Goal: Remains infection free Description: Assess and monitor vital signs, skin (color, moisture, integrity, turgor), respiratorystatus, urinary and gastrointestinal status, and labs (WBC, cultures). Administer antibiotics and antipyretics as ordered. Ensure aseptic care of all intravenous lines, invasive tubes/drains and wounds. Monitor for signs and symptoms of infection (redness, warmth, discharge, increased body temperature). Wash hands properly before and after each patient care activity. Follow isolation guidelines per hospital protocol/policy. Collaborate with interdisciplinary team and initiate plan and interventions as ordered. Outcome: Progressing Problem: Psychosocial Needs Goal: Demonstrates ability to cope with hospitalization/illness Description: Assess and monitor patients ability to cope with his/her illness. Outcome: Progressing Goal: Collaborate with patient/family/caregiver to identify patient specific goals for this hospitalization Outcome: Progressing Problem: Anxiety Goal: Anxiety is at manageable level Description: Assess and monitor patient's anxiety level. Monitor for signs and symptoms of anxiety both physical and emotional (heart palpitations, chest pain, shortness of breath, headaches, nausea,feeling jumpy, restlessness, irritable, apprehensive). Collaborate with interdisciplinary team and initiate plan and interventions as ordered. Outcome: Progressing Problem: Inadequate Coping Goal: Demonstrates ability to cope effectively Description: Patient is able to verbalize feelings related to emotional state. Outcome: Progressing Goal: Verbalizes adaptive coping mechanisms Description: Able to verbalize adaptive coping mechanisms such as physical activity, distraction, and deep breathing exercises. Outcome: Progressing Goal: Verbalizes personal strengths Description: Spend time with the patient using empathy and active listening skills. Outcome: Progressing Problem: Progressive Mobility Goal: BMAT Level 1 - With full mechanical lifting assistance: Outcome: Progressing Goal: BMAT Level 2 - With 2-person and/or mechanical lifting assistance: Outcome: Progressing Goal: BMAT Level 3 - With 1 to 2-person and/or mechanical lifting assistance: Outcome: Progressing Goal: BMAT Level 4 - With 1-person assistance or mobility aid as needed (walker, cane, crutches): Outcome: Progressing Problem: Discharge Barriers Goal: Patient's discharge needs are met Description: Collaborate with interdisciplinary team and initiate plans and interventions as needed. Outcome: Progressing * Plan of Care - Asha Almonte RN - 09/19/2023 5:18 PM EDT Problem: Compromised Skin Integrity Goal: LTG - Patient will be free from infection Outcome: Progressing Goal: LTG - Patient will maintain/improve skin integrity through proper skin care techniques Outcome: Progressing Goal: LTG - Patient will demonstrate appropriate pressure relief techniques Outcome: Progressing Goal: LTG - Patient will demonstrate appropriate skin care techniques Outcome: Progressing Goal: LTG - Patient will be free from infection Outcome: Progressing Goal: STG - Patient demonstrates skin care/treatment/dressing change Outcome: Progressing Goal: STG - Patient will maintain good skin integrity Outcome: Progressing Goal: STG - Patient exhibits signs of wound healing. Outcome: Progressing Goal: STG - Patient demonstrates pressure reduction techniques Outcome: Progressing Goal: STG - Patient demonstrates preventative skin care measures Outcome: Progressing Problem: Knowledge Deficit Goal: Patient/family/caregiver demonstrates understanding of disease process, treatment plan, medications, and discharge instructions Description: Complete learning assessment and assess knowledge base. Outcome: Progressing Problem: Potential for Falls Goal: Patient will remain free of falls Description: Assess and monitor vitals signs, neurological status including level of consciousness and orientation. Reassess fall risk per hospital policy. Ensure arm band on, uncluttered walking paths in room, adequate room lighting, call light and overbed table within reach, bed in low position, wheels locked, side rails up per policy, and non-skid footwear provided. Outcome: Progressing Problem: Pain Goal: Patient's pain/discomfort is manageable Description: Assess and monitor patient's pain using appropriate pain scale. Collaborate with interdisciplinary team and initiate plan and interventions as ordered. Re-assess patient's pain level after pain management intervention. Outcome: Progressing Problem: Safety Goal: Patient will be injury free during hospitalization Description: Assess and monitor vitals signs, neurological status including level of consciousness and orientation. Assess patient's risk for falls and implement fall prevention plan of care and interventions per hospital policy. Ensure arm band on, uncluttered walking paths in room, adequate room lighting, call light and overbed table within reach, bed in low position, wheels locked, side rails up per policy, and non-skid footwear provided. Outcome: Progressing Problem: Potential for Developing a Blood Clot Goal: Tissue perfusion is adequate - venous Description: Assess and monitor skin color and temperature, skin integrity, pulses, capillary refill, edema, pain in extremities, Homans' sign, labs (D- dimer), and diagnostic tests (ultrasound, CT scan, VQ scan). Monitor for signs and symptoms of deep vein thrombosis (swelling of calf/thigh, redness, pain, tenderness). Monitor for signs and symptoms of pulmonary embolism (dyspnea, tachypnea, tachycardia). Collaborate with interdisciplinary team and initiate plans and interventions as needed Outcome: Progressing Problem: Daily Care Goal: Daily care needs are met Description: Assess and monitor ability to perform self care and identify potential discharge needs. Outcome: Progressing Problem: Potential for Infection Goal: Remains infection free Description: Assess and monitor vital signs, skin (color, moisture, integrity, turgor), respiratorystatus, urinary and gastrointestinal status, and labs (WBC, cultures). Administer antibiotics and antipyretics as ordered. Ensure aseptic care of all intravenous lines, invasive tubes/drains and wounds. Monitor for signs and symptoms of infection (redness, warmth, discharge, increased body temperature). Wash hands properly before and after each patient care activity. Follow isolation guidelines per hospital protocol/policy. Collaborate with interdisciplinary team and initiate plan and interventions as ordered. Outcome: Progressing Problem: Psychosocial Needs Goal: Demonstrates ability to cope with hospitalization/illness Description: Assess and monitor patients ability to cope with his/her illness. Outcome: Progressing Goal: Collaborate with patient/family/caregiver to identify patient specific goals for this hospitalization Outcome: Progressing Problem: Anxiety Goal: Anxiety is at manageable level Description: Assess and monitor patient's anxiety level. Monitor for signs and symptoms of anxiety both physical and emotional (heart palpitations, chest pain, shortness of breath, headaches, nausea,feeling jumpy, restlessness, irritable, apprehensive). Collaborate with interdisciplinary team and initiate plan and interventions as ordered. Outcome: Progressing Problem: Inadequate Coping Goal: Demonstrates ability to cope effectively Description: Patient is able to verbalize feelings related to emotional state. Outcome: Progressing Goal: Verbalizes adaptive coping mechanisms Description: Able to verbalize adaptive coping mechanisms such as physical activity, distraction, and deep breathing exercises. Outcome: Progressing Goal: Verbalizes personal strengths Description: Spend time with the patient using empathy and active listening skills. Outcome: Progressing Problem: Progressive Mobility Goal: BMAT Level 1 - With full mechanical lifting assistance: Outcome: Progressing Goal: BMAT Level 2 - With 2-person and/or mechanical lifting assistance: Outcome: Progressing Goal: BMAT Level 3 - With 1 to 2-person and/or mechanical lifting assistance: Outcome: Progressing Goal: BMAT Level 4 - With 1-person assistance or mobility aid as needed (walker, cane, crutches): Outcome: Progressing Problem: Discharge Barriers Goal: Patient's discharge needs are met Description: Collaborate with interdisciplinary team and initiate plans and interventions as needed. Outcome: Progressing * Plan of Care - Lluvia Hutton RN - 09/17/2023 1:13 AM EDT Problem: Compromised Skin Integrity Goal: LTG - Patient will be free from infection Outcome: Progressing Goal: LTG - Patient will maintain/improve skin integrity through proper skin care techniques Outcome: Progressing Goal: LTG - Patient will demonstrate appropriate pressure relief techniques Outcome: Progressing Goal: LTG - Patient will demonstrate appropriate skin care techniques Outcome: Progressing Goal: LTG - Patient will be free from infection Outcome: Progressing Goal: STG - Patient demonstrates skin care/treatment/dressing change Outcome: Progressing Goal: STG - Patient will maintain good skin integrity Outcome: Progressing Goal: STG - Patient exhibits signs of wound healing. Outcome: Progressing Goal: STG - Patient demonstrates pressure reduction techniques Outcome: Progressing Goal: STG - Patient demonstrates preventative skin care measures Outcome: Progressing Problem: Knowledge Deficit Goal: Patient/family/caregiver demonstrates understanding of disease process, treatment plan, medications, and discharge instructions Description: Complete learning assessment and assess knowledge base. Outcome: Progressing Problem: Potential for Falls Goal: Patient will remain free of falls Description: Assess and monitor vitals signs, neurological status including level of consciousness and orientation. Reassess fall risk per hospital policy. Ensure arm band on, uncluttered walking paths in room, adequate room lighting, call light and overbed table within reach, bed in low position, wheels locked, side rails up per policy, and non-skid footwear provided. Outcome: Progressing Problem: Pain Goal: Patient's pain/discomfort is manageable Description: Assess and monitor patient's pain using appropriate pain scale. Collaborate with interdisciplinary team and initiate plan and interventions as ordered. Re-assess patient's pain level after pain management intervention. Outcome: Progressing Problem: Safety Goal: Patient will be injury free during hospitalization Description: Assess and monitor vitals signs, neurological status including level of consciousness and orientation. Assess patient's risk for falls and implement fall prevention plan of care and interventions per hospital policy. Ensure arm band on, uncluttered walking paths in room, adequate room lighting, call light and overbed table within reach, bed in low position, wheels locked, side rails up per policy, and non-skid footwear provided. Outcome: Progressing Problem: Potential for Developing a Blood Clot Goal: Tissue perfusion is adequate - venous Description: Assess and monitor skin color and temperature, skin integrity, pulses, capillary refill, edema, pain in extremities, Homans' sign, labs (D- dimer), and diagnostic tests (ultrasound, CT scan, VQ scan). Monitor for signs and symptoms of deep vein thrombosis (swelling of calf/thigh, redness, pain, tenderness). Monitor for signs and symptoms of pulmonary embolism (dyspnea, tachypnea, tachycardia). Collaborate with interdisciplinary team and initiate plans and interventions as needed Outcome: Progressing Problem: Daily Care Goal: Daily care needs are met Description: Assess and monitor ability to perform self care and identify potential discharge needs. Outcome: Progressing Problem: Potential for Infection Goal: Remains infection free Description: Assess and monitor vital signs, skin (color, moisture, integrity, turgor), respiratorystatus, urinary and gastrointestinal status, and labs (WBC, cultures). Administer antibiotics and antipyretics as ordered. Ensure aseptic care of all intravenous lines, invasive tubes/drains and wounds. Monitor for signs and symptoms of infection (redness, warmth, discharge, increased body temperature). Wash hands properly before and after each patient care activity. Follow isolation guidelines per hospital protocol/policy. Collaborate with interdisciplinary team and initiate plan and interventions as ordered. Outcome: Progressing Problem: Psychosocial Needs Goal: Demonstrates ability to cope with hospitalization/illness Description: Assess and monitor patients ability to cope with his/her illness. Outcome: Progressing Goal: Collaborate with patient/family/caregiver to identify patient specific goals for this hospitalization Outcome: Progressing Problem: Anxiety Goal: Anxiety is at manageable level Description: Assess and monitor patient's anxiety level. Monitor for signs and symptoms of anxiety both physical and emotional (heart palpitations, chest pain, shortness of breath, headaches, nausea,feeling jumpy, restlessness, irritable, apprehensive). Collaborate with interdisciplinary team and initiate plan and interventions as ordered. Outcome: Progressing Problem: Inadequate Coping Goal: Demonstrates ability to cope effectively Description: Patient is able to verbalize feelings related to emotional state. Outcome: Progressing Goal: Verbalizes adaptive coping mechanisms Description: Able to verbalize adaptive coping mechanisms such as physical activity, distraction, and deep breathing exercises. Outcome: Progressing Goal: Verbalizes personal strengths Description: Spend time with the patient using empathy and active listening skills. Outcome: Progressing Problem: Progressive Mobility Goal: BMAT Level 1 - With full mechanical lifting assistance: Outcome: Progressing Goal: BMAT Level 2 - With 2-person and/or mechanical lifting assistance: Outcome: Progressing Goal: BMAT Level 3 - With 1 to 2-person and/or mechanical lifting assistance: Outcome: Progressing Goal: BMAT Level 4 - With 1-person assistance or mobility aid as needed (walker, cane, crutches): Outcome: Progressing Problem: Discharge Barriers Goal: Patient's discharge needs are met Description: Collaborate with interdisciplinary team and initiate plans and interventions as needed. Outcome: Progressing * Nursing Progress Notes - Melisa Rodriguezx - 09/16/2023 5:30 PM EDT Returned back to the floor from Radiology, resting, easily aroused. * Plan of Care - Melisa Lucerorix - 09/16/2023 5:24 PM EDT Problem: Compromised Skin Integrity Goal: LTG - Patient will be free from infection Outcome: Not Progressing Goal: LTG - Patient will maintain/improve skin integrity through proper skin care techniques Outcome: Not Progressing Goal: LTG - Patient will demonstrate appropriate pressure relief techniques Outcome: Not Progressing Goal: LTG - Patient will demonstrate appropriate skin care techniques Outcome: Not Progressing Goal: LTG - Patient will be free from infection Outcome: Not Progressing Goal: STG - Patient demonstrates skin care/treatment/dressing change Outcome: Not Progressing Goal: STG - Patient will maintain good skin integrity Outcome: Not Progressing Goal: STG - Patient exhibits signs of wound healing. Outcome: Not Progressing Goal: STG - Patient demonstrates pressure reduction techniques Outcome: Not Progressing Goal: STG - Patient demonstrates preventative skin care measures Outcome: Not Progressing Problem: Knowledge Deficit Goal: Patient/family/caregiver demonstrates understanding of disease process, treatment plan, medications, and discharge instructions Description: Complete learning assessment and assess knowledge base. Outcome: Not Progressing Problem: Potential for Falls Goal: Patient will remain free of falls Description: Assess and monitor vitals signs, neurological status including level of consciousness and orientation. Reassess fall risk per hospital policy. Ensure arm band on, uncluttered walking paths in room, adequate room lighting, call light and overbed table within reach, bed in low position, wheels locked, side rails up per policy, and non-skid footwear provided. Outcome: Not Progressing Problem: Pain Goal: Patient's pain/discomfort is manageable Description: Assess and monitor patient's pain using appropriate pain scale. Collaborate with interdisciplinary team and initiate plan and interventions as ordered. Re-assess patient's pain level after pain management intervention. Outcome: Not Progressing Problem: Safety Goal: Patient will be injury free during hospitalization Description: Assess and monitor vitals signs, neurological status including level of consciousness and orientation. Assess patient's risk for falls and implement fall prevention plan of care and interventions per hospital policy. Ensure arm band on, uncluttered walking paths in room, adequate room lighting, call light and overbed table within reach, bed in low position, wheels locked, side rails up per policy, and non-skid footwear provided. Outcome: Not Progressing Problem: Potential for Developing a Blood Clot Goal: Tissue perfusion is adequate - venous Description: Assess and monitor skin color and temperature, skin integrity, pulses, capillary refill, edema, pain in extremities, Homans' sign, labs (D- dimer), and diagnostic tests (ultrasound, CT scan, VQ scan). Monitor for signs and symptoms of deep vein thrombosis (swelling of calf/thigh, redness, pain, tenderness). Monitor for signs and symptoms of pulmonary embolism (dyspnea, tachypnea, tachycardia). Collaborate with interdisciplinary team and initiate plans and interventions as needed Outcome: Not Progressing Problem: Daily Care Goal: Daily care needs are met Description: Assess and monitor ability to perform self care and identify potential discharge needs. Outcome: Not Progressing Problem: Potential for Infection Goal: Remains infection free Description: Assess and monitor vital signs, skin (color, moisture, integrity, turgor), respiratorystatus, urinary and gastrointestinal status, and labs (WBC, cultures). Administer antibiotics and antipyretics as ordered. Ensure aseptic care of all intravenous lines, invasive tubes/drains and wounds. Monitor for signs and symptoms of infection (redness, warmth, discharge, increased body temperature). Wash hands properly before and after each patient care activity. Follow isolation guidelines per hospital protocol/policy. Collaborate with interdisciplinary team and initiate plan and interventions as ordered. Outcome: Not Progressing Problem: Psychosocial Needs Goal: Demonstrates ability to cope with hospitalization/illness Description: Assess and monitor patients ability to cope with his/her illness. Outcome: Not Progressing Goal: Collaborate with patient/family/caregiver to identify patient specific goals for this hospitalization Outcome: Not Progressing Problem: Anxiety Goal: Anxiety is at manageable level Description: Assess and monitor patient's anxiety level. Monitor for signs and symptoms of anxiety both physical and emotional (heart palpitations, chest pain, shortness of breath, headaches, nausea,feeling jumpy, restlessness, irritable, apprehensive). Collaborate with interdisciplinary team and initiate plan and interventions as ordered. Outcome: Not Progressing Problem: Inadequate Coping Goal: Demonstrates ability to cope effectively Description: Patient is able to verbalize feelings related to emotional state. Outcome: Not Progressing Goal: Verbalizes adaptive coping mechanisms Description: Able to verbalize adaptive coping mechanisms such as physical activity, distraction, and deep breathing exercises. Outcome: Not Progressing Goal: Verbalizes personal strengths Description: Spend time with the patient using empathy and active listening skills. Outcome: Not Progressing Problem: Progressive Mobility Goal: BMAT Level 1 - With full mechanical lifting assistance: Outcome: Not Progressing Goal: BMAT Level 2 - With 2-person and/or mechanical lifting assistance: Outcome: Not Progressing Goal: BMAT Level 3 - With 1 to 2-person and/or mechanical lifting assistance: Outcome: Not Progressing Goal: BMAT Level 4 - With 1-person assistance or mobility aid as needed (walker, cane, crutches): Outcome: Not Progressing Problem: Discharge Barriers Goal: Patient's discharge needs are met Description: Collaborate with interdisciplinary team and initiate plans and interventions as needed. Outcome: Not Progressing * Nursing Progress Notes - Melisa Dickson - 09/16/2023 4:09 PM EDT Pt off the floor for Radiology. * Plan of Care - Lluvia Hutton RN - 09/16/2023 12:45 AM EDT Problem: Compromised Skin Integrity Goal: LTG - Patient will be free from infection Outcome: Progressing Goal: LTG - Patient will maintain/improve skin integrity through proper skin care techniques Outcome: Progressing Goal: LTG - Patient will demonstrate appropriate pressure relief techniques Outcome: Progressing Goal: LTG - Patient will demonstrate appropriate skin care techniques Outcome: Progressing Goal: LTG - Patient will be free from infection Outcome: Progressing Goal: STG - Patient demonstrates skin care/treatment/dressing change Outcome: Progressing Goal: STG - Patient will maintain good skin integrity Outcome: Progressing Goal: STG - Patient exhibits signs of wound healing. Outcome: Progressing Goal: STG - Patient demonstrates pressure reduction techniques Outcome: Progressing Goal: STG - Patient demonstrates preventative skin care measures Outcome: Progressing Problem: Knowledge Deficit Goal: Patient/family/caregiver demonstrates understanding of disease process, treatment plan, medications, and discharge instructions Description: Complete learning assessment and assess knowledge base. Outcome: Progressing Problem: Potential for Falls Goal: Patient will remain free of falls Description: Assess and monitor vitals signs, neurological status including level of consciousness and orientation. Reassess fall risk per hospital policy. Ensure arm band on, uncluttered walking paths in room, adequate room lighting, call light and overbed table within reach, bed in low position, wheels locked, side rails up per policy, and non-skid footwear provided. Outcome: Progressing Problem: Pain Goal: Patient's pain/discomfort is manageable Description: Assess and monitor patient's pain using appropriate pain scale. Collaborate with interdisciplinary team and initiate plan and interventions as ordered. Re-assess patient's pain level after pain management intervention. Outcome: Progressing Problem: Safety Goal: Patient will be injury free during hospitalization Description: Assess and monitor vitals signs, neurological status including level of consciousness and orientation. Assess patient's risk for falls and implement fall prevention plan of care and interventions per hospital policy. Ensure arm band on, uncluttered walking paths in room, adequate room lighting, call light and overbed table within reach, bed in low position, wheels locked, side rails up per policy, and non-skid footwear provided. Outcome: Progressing Problem: Potential for Developing a Blood Clot Goal: Tissue perfusion is adequate - venous Description: Assess and monitor skin color and temperature, skin integrity, pulses, capillary refill, edema, pain in extremities, Homans' sign, labs (D- dimer), and diagnostic tests (ultrasound, CT scan, VQ scan). Monitor for signs and symptoms of deep vein thrombosis (swelling of calf/thigh, redness, pain, tenderness). Monitor for signs and symptoms of pulmonary embolism (dyspnea, tachypnea, tachycardia). Collaborate with interdisciplinary team and initiate plans and interventions as needed Outcome: Progressing Problem: Daily Care Goal: Daily care needs are met Description: Assess and monitor ability to perform self care and identify potential discharge needs. Outcome: Progressing Problem: Potential for Infection Goal: Remains infection free Description: Assess and monitor vital signs, skin (color, moisture, integrity, turgor), respiratorystatus, urinary and gastrointestinal status, and labs (WBC, cultures). Administer antibiotics and antipyretics as ordered. Ensure aseptic care of all intravenous lines, invasive tubes/drains and wounds. Monitor for signs and symptoms of infection (redness, warmth, discharge, increased body temperature). Wash hands properly before and after each patient care activity. Follow isolation guidelines per hospital protocol/policy. Collaborate with interdisciplinary team and initiate plan and interventions as ordered. Outcome: Progressing Problem: Psychosocial Needs Goal: Demonstrates ability to cope with hospitalization/illness Description: Assess and monitor patients ability to cope with his/her illness. Outcome: Progressing Goal: Collaborate with patient/family/caregiver to identify patient specific goals for this hospitalization Outcome: Progressing Problem: Anxiety Goal: Anxiety is at manageable level Description: Assess and monitor patient's anxiety level. Monitor for signs and symptoms of anxiety both physical and emotional (heart palpitations, chest pain, shortness of breath, headaches, nausea,feeling jumpy, restlessness, irritable, apprehensive). Collaborate with interdisciplinary team and initiate plan and interventions as ordered. Outcome: Progressing Problem: Inadequate Coping Goal: Demonstrates ability to cope effectively Description: Patient is able to verbalize feelings related to emotional state. Outcome: Progressing Goal: Verbalizes adaptive coping mechanisms Description: Able to verbalize adaptive coping mechanisms such as physical activity, distraction, and deep breathing exercises. Outcome: Progressing Goal: Verbalizes personal strengths Description: Spend time with the patient using empathy and active listening skills. Outcome: Progressing Problem: Progressive Mobility Goal: BMAT Level 1 - With full mechanical lifting assistance: Outcome: Progressing Goal: BMAT Level 2 - With 2-person and/or mechanical lifting assistance: Outcome: Progressing Goal: BMAT Level 3 - With 1 to 2-person and/or mechanical lifting assistance: Outcome: Progressing Goal: BMAT Level 4 - With 1-person assistance or mobility aid as needed (walker, cane, crutches): Outcome: Progressing Problem: Discharge Barriers Goal: Patient's discharge needs are met Description: Collaborate with interdisciplinary team and initiate plans and interventions as needed. Outcome: Progressing * CDI/Coding Query - Cornelius Mccarty MD - 09/15/2023 11:22 AM EDT CLINICAL DOCUMENTATION CLARIFICATION FORM: Dear Provider: Dr. Alessio Mccarty Date / Time: 09/15/2023 10:12 AM Please exercise your independent, professional judgment in responding to the clarification form. Clinical indicators are provided on the bottom of this form for your review Please check appropriate box(es): BMI <19.9 with associated diagnosis of (check one): [x] Mild Protein Calorie Malnutrition [] Other Malnutrition (please enter/write your response): [] Underweight without Malnutrition [] Other: (please enter/write your response) [] Unable to determine For continuity of documentation, please document condition throughout progress notes and discharge summary. Thank You. To be completed by CDI/Coding staff for Provider review: Clinical Indicators - Signs / Symptoms / Labs Results and Location in Medical Record [x] BMI of: - 09/11 Vitals Flowsheet: BMI 18.95 kg/m?? [x] Dehydration - 09/11 H&P: Dehydration patient started on IV fluid [x] Lab Results - 09/11 Lab Results: Total Protein 5.2 - 09/13 Lab Results: Total Protein 4.5 Risk Factors Results and Location in Medical Record [x] Inability to consume adequate caloric intake - 09/12 RD Consult Note: Inadequate Oral Intake - Etiology: altered mentation [x] Advanced Age - 4/1 RD Consult Note: Underweight - Etiology: advanced age [x] Decreased Intake - 09/12 Consult Note: Pt is on a regular diet, eating 0% of meals documented. Treatments Results and Location in Medical Record [x] RD Consult - 09/12 [employer] consult completed [x] Nutritional Supplements - 09/12 Consult Note: Continue regular diet. RD will add Ensure Enlive BID CDS/Aquatic Laborer Signature: Doris Mills Phone #: [phone] Date/Time: 09/15/2023 10:12 AM This is a permanent part of the Medical Record 2021 [facility] Reviewed: 03/2022 * CDI/Coding Query - Cornelius Mccarty MD - 09/15/2023 11:21 AM EDT CLINICAL DOCUMENTATION CLARIFICATION FORM: Dear Provider: Dr. Alessio Mccarty Date / Time: 09/15/2023 9:40 AM Please exercise your independent, professional judgment in responding to the clarification form. Clinical indicators are provided on the bottom of this form for your review Please check appropriate box(es): [x] Acute Metabolic Encephalopathy [] Acute Toxic Encephalopathy [] Acute Encephalopathy, other etiology (please enter/write your response): [] Acute Encephalopathy, unspecified [] Other: (please enter/write your response) [] Unable to determine For continuity of documentation, please document condition throughout progress notes and discharge summary. Thank You. To be completed by CDI/Coding staff for Provider review: Clinical Indicators - Signs / Symptoms / Labs Results and Location in Medical Record [x] Altered mental status / Confusion / Encephalopathy - 09/12 Ortho Sx Consult Note: Patient does not respond appropriately to all questions. Unaware of current location - 09/12 Hosp Med PN: Patient confused uncooperative ; Altered mental status/acute encephalopathy -Check CAT scan of the head - Consult neurology - 09/12 Neurology Consult Note: The patient apparently has been noted by staff to be confused but the patient denies confusion. ; she is alert and oriented x 3 she has good recent and remote recall her attention span and concentration are normal - 09/13 Hosp Med PN: Patient confused - 09/13 Palliative Care Consult: Altered mental status, improving [x] Metabolic / electrolyte abnormality - 09/11 Lab Results: Na 121 meq/L - 09/12 Lab Results: Na 122 to 125 meq/L - 09/13 Lab Results: Na 124 to 126 meq/L - 09/14 Lab Results: Na 126 meq/L [x] Infectious Process - 09/11 H&P: pneumonia - 09/12 Infectious Diseases Consult Note: Pyuria with possible acute bacterial cystitis Risk Factors Results and Location in Medical Record [x] Advanced Age - 3/31 H&P: Pt age 73 yrs old Treatments Results and Location in Medical Record [x] Neurology Consult - 09/12 Orders: Inpatient consult to Neurology, reason AMS/Right side weakness [x] Correction of electrolyte imbalances - 09/11 Orders: NS continuous 100 mL/hr - 09/13 Orders: Lasix 20 mg IV x1 - 09/13 Nephrology PN: Currently patient on fluid restriction [x] IV Antibiotics - 09/11 Orders: Zosyn 4.5 gm IV Q6 hrs ; Doxycycline 100 mg IV Q12 hrs - 09/12 Orders: Ceftriaxone 2 g IV Q24 hrs CDS/Aquatic Laborer Signature: Doris Mills Phone #: [phone] Date/Time: 09/15/2023 9:40 AM This is a permanent part of the Medical Record 2021 [facility] Reviewed: 03/2022 * Plan of Care - Arthur Spaulding LPN - 09/15/2023 3:17 AM EDT Problem: Compromised Skin Integrity Goal: LTG - Patient will be free from infection 09/15/2023316 by Arthur Spaulding LPN Outcome: Progressing 09/15/2023316 by Arthur Spaulding LPN Outcome: Progressing Goal: LTG - Patient will maintain/improve skin integrity through proper skin care techniques 09/15/2023316 by Arthur Spaulding LPN Outcome: Progressing 09/15/20237 by Arthur Spaulding LPN Outcome: Progressing Goal: LTG - Patient will demonstrate appropriate pressure relief techniques 09/15/2023 0317 by Arthur Spaulding FINANCIAL PROJECT MANAGER Outcome: Progressing 09/15/2023 0317 by Arthur Spaulding LPN Outcome: Progressing Goal: LTG - Patient will demonstrate appropriate skin care techniques 09/15/20237 by Arthur Spaulding FINANCIAL PROJECT MANAGER Outcome: Progressing 09/15/2023 0317 by Arthur Spaulding LPN Outcome: Progressing Goal: LTG - Patient will be free from infection 09/15/20237 by Arthur Spaulding LPN Outcome: Progressing 09/15/2023316 by Arthur Spaulding LPN Outcome: Progressing Goal: STG - Patient demonstrates skin care/treatment/dressing change 09/15/2023316 by Arthur Spaulding LPN Outcome: Progressing 09/15/2023316 by Arthur Spaulding LPN Outcome: Progressing Goal: STG - Patient will maintain good skin integrity 09/15/2023316 by Arthur Spaulding LPN Outcome: Progressing 09/15/2023316 by Arthur Spaulding LPN Outcome: Progressing Goal: STG - Patient exhibits signs of wound healing. 09/15/2023316 by Arthur Spaulding LPN Outcome: Progressing 09/15/2023316 by Arthur Spaulding LPN Outcome: Progressing Goal: STG - Patient demonstrates pressure reduction techniques 09/15/2023316 by Arthur Spualding LPN Outcome: Progressing 09/15/2023316 by Arthur Spaulding LPN Outcome: Progressing Goal: STG - Patient demonstrates preventative skin care measures 09/15/2023316 by Arthur Spaulding LPN Outcome: Progressing 09/15/2023316 by Arthur Spaulding LPN Outcome: Progressing Problem: Knowledge Deficit Goal: Patient/family/caregiver demonstrates understanding of disease process, treatment plan, medications, and discharge instructions Description: Complete learning assessment and assess knowledge base. 09/15/2023316 by Arthur Spaulding LPN Outcome: Progressing 09/15/2023316 by Arthur Spaulding LPN Outcome: Progressing Problem: Potential for Falls Goal: Patient will remain free of falls Description: Assess and monitor vitals signs, neurological status including level of consciousness and orientation. Reassess fall risk per hospital policy. Ensure arm band on, uncluttered walking paths in room, adequate room lighting, call light and overbed table within reach, bed in low position, wheels locked, side rails up per policy, and non-skid footwear provided. 09/15/2023316 by Arthur Spaulding LPN Outcome: Progressing 09/15/2023 0317 by Arthur Spaulding LPN Outcome: Progressing * Nursing Progress Notes - Shahla Walter RN - 09/14/2023 5:33 PM EDT Patient has had some intermittent confusion but has mostly answered all questions correctly. Complaints of pain to bilateral hips, especially right. Feet extended. Unable to lmove legs very much. Medicated per aug. Encouraged turns * Plan of Care - Shahla Walter RN - 09/14/2023 12:17 PM EDT Problem: Compromised Skin Integrity Goal: LTG - Patient will be free from infection Outcome: Progressing Goal: LTG - Patient will maintain/improve skin integrity through proper skin care techniques Outcome: Progressing Goal: LTG - Patient will demonstrate appropriate pressure relief techniques Outcome: Progressing Goal: LTG - Patient will demonstrate appropriate skin care techniques Outcome: Progressing Goal: LTG - Patient will be free from infection Outcome: Progressing Goal: STG - Patient demonstrates skin care/treatment/dressing change Outcome: Progressing Goal: STG - Patient will maintain good skin integrity Outcome: Progressing Goal: STG - Patient exhibits signs of wound healing. Outcome: Progressing Goal: STG - Patient demonstrates pressure reduction techniques Outcome: Progressing Goal: STG - Patient demonstrates preventative skin care measures Outcome: Progressing Problem: Knowledge Deficit Goal: Patient/family/caregiver demonstrates understanding of disease process, treatment plan, medications, and discharge instructions Description: Complete learning assessment and assess knowledge base. Outcome: Progressing Problem: Potential for Falls Goal: Patient will remain free of falls Description: Assess and monitor vitals signs, neurological status including level of consciousness and orientation. Reassess fall risk per hospital policy. Ensure arm band on, uncluttered walking paths in room, adequate room lighting, call light and overbed table within reach, bed in low position, wheels locked, side rails up per policy, and non-skid footwear provided. Outcome: Progressing documented in this encounter Plan of Treatment Not on file documented as of this encounter Procedures Procedure Name Priority Date/Time Associated Diagnosis Comments CBC W/ AUTO DIFF Routine 09/25/2023 2:51 AM EDT BASIC METABOLIC PANEL Routine 09/25/2023 2:51 AM EDT CBC W/ AUTO DIFF Routine 09/24/2023 3:54 AM EDT BASIC METABOLIC PANEL Routine 09/24/2023 3:54 AM EDT CBC W/MANUAL DIFF (SJ-BKR) Routine 09/22/2023 3:22 AM EDT CBC HEMOGRAM (SJ-BKR) Routine 09/22/2023 3:22 AM EDT MANUAL DIFFERENTIAL Routine 09/22/2023 3 :22 AM EDT AMMONIA Routine 09/22/2023 3:22 AM EDT COMPREHENSIVE METABOLIC PANEL Routine 09/22/2023 3:[address] BRAIN WITHOUT IV CONTRAST STAT 09/21/2023 6:13 PM EDT BLOOD GAS, ARTERIAL Routine 09/21/2023 5 :05 PM EDT IRON AND TIBC Add-On 09/21/2023 2:35 AM EDT BASIC METABOLIC PANEL Routine 09/21/2023 2:35 AM EDT CBC HEMOGRAM (SJ-BKR) Routine 09/21/2023 2:34 AM EDT LACTIC ACID WITH REFLEX Routine 09/20/2023 2:30 AM EDT AMMONIA Routine 09/20/2023 2:30 AM EDT CBC HEMOGRAM (SJ-BKR) Routine 09/20/2023 2:29 AM EDT PROCALCITONIN Routine 09/20/2023 2:29 AM EDT BASIC METABOLIC PANEL Routine 09/20/2023 2:29 AM EDT BLOOD CULTURE Routine 09/19/2023 11:46 AM EDT BLOOD CULTURE Routine 09/19/2023 11:37 AM EDT BASIC METABOLIC PANEL Routine 09/19/2023 11:37 AM EDT CBC HEMOGRAM (SJ-BKR) Routine 09/19/2023 2:40 AM EDT CREATINE KINASE (CK) Add-On 09/19/2023 2:40 AM EDT AMMONIA Routine 09/19/2023 2:40 AM EDT BASIC METABOLIC PANEL Routine 09/19/2023 2:[address] ABDOMEN/PELVIS WITHOUT IV CONTRAST Routine 09/18/2023 1:36 PM EDT SODIUM STAT 09/18/2023 11:54 AM EDT BASIC METABOLIC PANEL Add-On 09/18/2023 11:54 AM EDT SODIUM STAT 09/18/2023 6:48 AM EDT CBC HEMOGRAM (SJ-BKR) Routine 09/18/2023 6:46 AM EDT SODIUM STAT 09/18/2023 2:39 AM EDT SODIUM STAT 09/17/2023 11:19 PM EDT SODIUM STAT 09/17/2023 7:12 PM EDT SODIUM STAT 09/17/2023 2:38 PM EDT FS_MODEL_IP_TRANSFUSE RED BLOOD CELLS Routine 09/17/2023 9:52 AM EDT SODIUM STAT 09/17/2023 8:12 AM EDT TYPE AND SCREEN ([place] BKR) STAT 09/17/2023 5:30 AM EDT FS_MODEL_IP_PREPARE RBC STAT 09/17/2023 5:22 AM EDT CBC HEMOGRAM (SJ-BKR) Routine 09/17/2023 4:09 AM EDT ABO/RH CONFIRMATION/RETYPE ([place] BKR) Routine 09/17/2023 4:09 AM EDT SODIUM STAT 09/17/2023 4:09 AM EDT CREATINE KINASE (CK) Routine 09/17/2023 4:09 AM EDT COMPREHENSIVE METABOLIC PANEL Routine 09/17/2023 4:09 AM EDT SODIUM STAT 09/17/2023 12:05 AM EDT SODIUM STAT 09/16/2023 7:56 PM EDT MR CERVICAL SPINE WITHOUT IV CONTRAST Routine 09/16/2023 5:13 PM EDT MR BRAIN WITHOUT IV CONTRAST Routine 09/16/2023 5:00 PM EDT XR FEMUR RIGHT Routine 09/16/2023 4:16 PM EDT XR FEMUR LEFT Routine 09/16/2023 4:12 PM EDT ECHO COMPLETE (DOPPLER / COLOR) WO CONTRAST Routine 09/16/2023 3:50 PM EDT SODIUM STAT 09/16/2023 3:44 PM EDT SODIUM STAT 09/16/2023 12:16 PM EDT SODIUM STAT 09/16/2023 8:31 AM EDT XR CHEST AP PORTABLE Routine 09/16/2023 8:10 AM EDT TSH W REFLEX FT4 Routine 09/16/2023 2:21 AM EDT CREATINE KINASE (CK) Routine 09/16/2023 2:21 AM EDT AMMONIA Routine 09/16/2023 2:21 AM EDT BASIC METABOLIC PANEL Routine 09/16/2023 2:21 AM EDT CBC HEMOGRAM (SJ-BKR) Routine 09/16/2023 2:20 AM EDT SODIUM STAT 09/15/2023 9:12 PM EDT SODIUM STAT 09/15/2023 5:15 PM EDT SODIUM STAT 09/15/2023 1:25 PM EDT MR LUMBAR SPINE WITHOUT IV CONTRAST Routine 09/15/2023 12:26 PM EDT MR THORACIC SPINE WITHOUT IV CONTRAST Routine 09/15/2023 12:17 PM EDT NOVA GLUCOSE POC Routine 09/15/2023 10:3 6 AM EDT SODIUM STAT 09/15/2023 8:08 AM EDT NOVA GLUCOSE POC Routine 09/15/2023 5:46 AM EDT CBC HEMOGRAM (SJ-BKR) Routine 09/15/2023 2:36 AM EDT SODIUM STAT 09/15/2023 2:36 AM EDT CREATINE KINASE (CK) Routine 09/15/2023 2:36 AM EDT BASIC METABOLIC PANEL Routine 09/15/2023 2:36 AM EDT AMMONIA Routine 09/15/2023 2:35 AM EDT NOVA GLUCOSE POC Routine 09/15/2023 12:0 5 AM EDT SODIUM STAT 09/14/2023 8:17 PM EDT NOVA GLUCOSE POC Routine 09/14/2023 5:40 PM EDT SODIUM STAT 09/14/2023 4:47 PM EDT SODIUM STAT 09/14/2023 1:25 PM EDT NOVA GLUCOSE POC Routine 09/14/2023 11:[address] ABDOMEN/PELVIS WITHOUT IV CONTRAST Routine 09/14/2023 9:35 AM EDT FOLATE, SERUM Routine 09/14/2023 2:49 AM EDT VITAMIN B12 Routine 09/14/2023 2:49 AM EDT COMPREHENSIVE METABOLIC PANEL Routine 09/14/2023 2:49 AM EDT LACTIC ACID (SJ - BKR) Routine 2:48 AM EDT CBC W/MANUAL DIFF (SJ-BKR) Routine 09/14/2023 2:48 AM EDT MANUAL DIFFERENTIAL Routine 09/14/2023 2 :48 AM EDT SODIUM STAT 09/13/2023 11:14 PM EDT NOVA GLUCOSE POC Routine 09/13/2023 5:02 PM EDT SODIUM Add-On 09/13/2023 12:34 PM EDT OSMOLALITY, SERUM STAT 09/13/2023 12: 34 PM EDT BASIC METABOLIC PANEL STAT 09/13/2023 12:34 PM EDT NOVA GLUCOSE POC Routine 09/13/2023 11:[address] BRAIN WITHOUT IV CONTRAST STAT 09/13/2023 11:02 AM EDT US DOPPLER VENOUS LEGS BILATERAL Routine 09/13/2023 8:00 AM EDT CBC HEMOGRAM (SJ-BKR) Routine 09/13/2023 1:48 AM EDT LACTIC ACID WITH REFLEX Routine 09/13/2023 1:48 AM EDT PROCALCITONIN Routine 09/13/2023 1:48 AM EDT AMMONIA Routine 09/13/2023 1:48 AM EDT BASIC METABOLIC PANEL Routine 09/13/2023 1:48 AM EDT URINE DRUG SCREEN Routine 09/12/2023 10: 10 PM EDT SODIUM, RANDOM URINE Add-On 09/12/2023 10:10 PM EDT OSMOLALITY, URINE Add-On 09/12/2023 10: 10 PM EDT URINALYSIS W/ MICROSCOPIC Routine 09/12/2023 10:10 PM EDT URINE CULTURE STAT 09/12/2023 10:10 PM EDT XR PELVIS 1 OR 2 VIEWS Routine 8:46 PM EDT FS_MODEL_IP_ECG 12-LEAD Routine 09/12/2023 7:00 PM EDT XR CHEST AP PORTABLE Routine 09/12/2023 6:29 PM EDT BLOOD GAS, ARTERIAL STAT 09/12/2023 6 :25 PM EDT BLOOD CULTURE STAT 09/12/2023 6:14 PM EDT HIGH SENSITIVITY TROPONIN I STAT 09/12/2023 6:08 PM EDT PROCALCITONIN STAT 09/12/2023 6:08 PM EDT PROBNP STAT 09/12/2023 6:08 PM EDT COMPREHENSIVE METABOLIC PANEL STAT 09/12/2023 6:08 PM EDT [facility] CBC SCAN Routine 09/12/2023 6:07 PM EDT CBC W/ AUTO DIFF STAT 09/12/2023 6:07 PM EDT LACTIC ACID WITH REFLEX STAT 09/12/2023 6:07 PM EDT APTT STAT 09/12/2023 6:07 PM EDT PROTHROMBIN TIME/INR STAT 09/12/2023 6:07 PM EDT BLOOD CULTURE STAT 09/12/2023 6:06 PM EDT EKG-SCANNED 09/12/2023 documented in this encounter Results * (ABNORMAL) CBC with automated diff (09/25/2023 2:51 AM EDT) WBC 8.2 4.0 - 10.0 K/??L 09/25/2023 3:06 AM EDT [facility] LABORATORY RBC 2.40(L) 3.93 - 5.22 M/??L 09/25/2023 3:06 AM EDT [facility] Hemoglobin 7.6(L) 11.2 - 15.7 GM/DL 09/25/2023 3:06 AM EDT [facility] Hematocrit 23.3(L) 34.1 - 44.9 % 09/25/2023 3:06 AM EDT [facility] MCV 97(H) 79 - 95 fL 09/25/2023 3:06 AM EDT [facility] MCH 31.7 25.6 - 32.2 pg 09/25/2023 3:06 AM EDT [facility] MCHC 32.6 32.2 - 35.5 GM/DL 09/25/2023 3:06 AM EDT [facility] RDW 15.8(H) 11.7 - 14.4 % 09/25/2023 3:06 AM EDT [facility] Platelets 227 140 - 375 K/CU MM 09/25/2023 3:06 AM EDT [facility] MPV 9.7 9.4 - 12.3 fL 09/25/2023 3:06 AM EDT [facility] % Neutros 75(H) 34 - 71 % 09/25/2023 3:06 AM EDT [facility] % Lymphs 13(L) 19 - 52 % 09/25/2023 3:06 AM EDT [facility] % Monos 8 5 - 13 % 09/25/2023 3:06 AM EDT [facility] % Eos 4 1 - 6 % 09/25/2023 3:06 AM EDT [facility] % Baso 1 0 - 1 % 09/25/2023 3:06 AM EDT [facility] NRBC Absolute <0.01 0 - 0.012 K/ul 09/25/2023 3:06 AM EDT [facility] # Neutros 6.13 1.56 - 6.13 K/??L 09/25/2023 3:06 AM EDT [facility] # Lymphs 1.05(L) 1.18 - 3.74 K/??L 09/25/2023 3:06 AM EDT [facility] # Monos 0.61 0.24 - 0.86 K/??L 09/25/2023 3:06 AM EDT [facility] # Eos 0.29 0.04 - 0.36 K/??L 09/25/2023 3:06 AM EDT [facility] # Baso 0.05 0.01 - 0.08 K/??L 09/25/2023 3:06 AM EDT [facility] Immature Granulocytes-Re lative 0.20 0.01 - 0.43 % 09/25/2023 3:06 AM EDT [facility] # IG <0.03 0.00 - 0.03 K/uL 09/25/2023 3:06 AM EDT [facility] Blood Venipuncture / Unknown 09/25/2023 2:51 AM EDT 09/25/2023 3:01 AM EDT Narrative [facility] - 09/25/2023 3:06 AM EDT When CBC w/ Auto Diff is ordered the lab will add a Manual Differential as a quality check at no additional charge if: Lymphocytes greater than seventy five percent with normal or increased WBC Monocytes greater than Fifteen percent Basophil greater than four percent Bands >10% or several immature myeloids are seen on scan Blast? Flag noted Atypical Lymph flag noted Note: reference ranges were changed on 07/13/2023. us Dede Rendon APRN LAB BLOOD ORDERABLES Final R esult [facility] [address] [place], [place] [address] [phone] * (ABNORMAL) Basic Metabolic Panel (09/25/2023 2:51 AM EDT) [facility] Sodium 133(L) 136 - 146 meq/L 09/25/2023 3:24 AM EDT [facility] Potassium 4.4 3.5 - 5.1 meq/L 09/25/2023 3:24 AM EDT [facility] Chloride 103 102 - 112 meq/L 09/25/2023 3:24 AM EDT [facility] CO2 26 21 - 32 meq/L 09/25/2023 3:24 AM EDT [facility] Anion Gap 8(L) 9 - 20 09/25/2023 3:24 AM EDT [facility] BUN 24(H) 7 - 22 mg/dL 09/25/2023 3:24 AM EDT [facility] Creatinine 0.66 0.55 - 1.02 mg/dL 09/25/2023 3:24 AM EDT [facility] BUN/Creatinine 36(H) 8 - 20 09/25/2023 3:24 AM EDT [facility] Glucose 100 74 - 106 mg/dL 09/25/2023 3:24 AM EDT [facility] Calcium 8.5 8.4 - 10.1 mg/dL 09/25/2023 3:24 AM EDT [facility] Osmolality Calc 270.5 3:24 AM EDT [facility] eGFR (mL/min/1.73m2) >60 >=60 mL/min/1.7 3m2 09/25/2023 3:24 AM EDT [facility] Comment:eGFR of <60 suggests chronic kidney disease if found over a 3 month period of time. eGFR <15 indicates renal failure. Blood Venipuncture / Unknown 09/25/2023 2:51 AM EDT 09/25/2023 3:02 AM EDT us Dede Rendon APRN LAB BLOOD ORDERABLES Final R esult [facility] [address] [place] [address], [place] [phone] * (ABNORMAL) CBC with automated diff (09/24/2023 3:54 AM EDT) WBC 10.5(H) 4.0 - 10.0 K/??L 09/24/2023 4:16 AM EDT [facility] RBC 2.54(L) 3.93 - 5.22 M/??L 09/24/2023 4:16 AM EDT [facility] Hemoglobin 8.0(L) 11.2 - 15.7 GM/DL 09/24/2023 4:16 AM EDT [facility] Hematocrit 23.8(L) 34.1 - 44.9 % 09/24/2023 4:16 AM EDT [facility] MCV 94 79 - 95 fL 09/24/2023 4:16 AM EDT [facility] MCH 31.5 25.6 - 32.2 pg 09/24/2023 4:16 AM EDT [facility] MCHC 33.6 32.2 - 35.5 GM/DL 09/24/2023 4:16 AM EDT [facility] RDW 15.4(H) 11.7 - 14.4 % 09/24/2023 4:16 AM EDT [facility] Platelets 251 140 - 375 K/CU MM 09/24/2023 4:16 AM EDT [facility] MPV 9.6 9.4 - 12.3 fL 09/24/2023 4:16 AM EDT [facility] % Neutros 80(H) 34 - 71 % 09/24/2023 4:16 AM EDT [facility] % Lymphs 10(L) 19 - 52 % 09/24/2023 4:16 AM EDT [facility] % Monos 7 5 - 13 % 09/24/2023 4:16 AM EDT [facility] % Eos 2 1 - 6 % 09/24/2023 4:16 AM EDT [facility] % Baso 1 0 - 1 % 09/24/2023 4:16 AM EDT [facility] NRBC Absolute <0.01 0 - 0.012 K/ul 09/24/2023 4:16 AM EDT [facility] # Neutros 8.43(H) 1.56 - 6.13 K/??L 09/24/2023 4:16 AM EDT [facility] # Lymphs 1.09(L) 1.18 - 3.74 K/??L 09/24/2023 4:16 AM EDT [facility] # Monos 0.70 0.24 - 0.86 K/??L 09/24/2023 4:16 AM EDT [facility] # Eos 0.20 0.04 - 0.36 K/??L 09/24/2023 4:16 AM EDT [facility] # Baso 0.05 0.01 - 0.08 K/??L 09/24/2023 4:16 AM EDT [facility] Immature Granulocytes-Re lative 0.50(H) 0.01 - 0.43 % 09/24/2023 4:16 AM EDT [facility] # IG 0.05(H) 0.00 - 0.03 K/uL 09/24/2023 4:16 AM EDT [facility] Blood Venipuncture / Unknown 09/24/2023 3:54 AM EDT 09/24/2023 4:03 AM EDT Narrative [facility] - 09/24/2023 4:16 AM EDT When CBC w/ Auto Diff is ordered the lab will add a Manual Differential as a quality check at no additional charge if: Lymphocytes greater than seventy five percent with normal or increased WBC Monocytes greater than Fifteen percent Basophil greater than four percent Bands >10% or several immature myeloids are seen on scan Blast? Flag noted Atypical Lymph flag noted Note: reference ranges were changed on 07/13/2023. us Dede Rendon APRN LAB BLOOD ORDERABLES Final R esult [facility] [address] [place] [address], [place] [phone] * (ABNORMAL) Basic Metabolic Panel (09/24/2023 3:54 AM EDT) Sodium 133(L) 136 - 146 meq/L 09/24/2023 4:47 AM EDT [facility] Potassium 4.3 3.5 - 5.1 meq/L 09/24/2023 4:47 AM EDT [facility] Chloride 104 102 - 112 meq/L 09/24/2023 4:47 AM EDT [facility] CO2 23 21 - 32 meq/L 09/24/2023 4:47 AM EDT [facility] Anion Gap 10 9 - 20 09/24/2023 4:47 AM EDT [facility] BUN 22 7 - 22 mg/dL 09/24/2023 4:47 AM EDT [facility] Creatinine 0.65 0.55 - 1.02 mg/dL 09/24/2023 4:47 AM EDT [facility] BUN/Creatinine 34(H) 8 - 20 09/24/2023 4:47 AM EDT [facility] Glucose 108(H) 74 - 106 mg/dL 09/24/2023 4:47 AM EDT [facility] Calcium 9.2 8.4 - 10.1 mg/dL 09/24/2023 4:47 AM EDT [facility] Osmolality Calc 270.2 4:47 AM EDT [facility] eGFR (mL/min/1.73m2) >60 >=60 mL/min/1.7 3m2 09/24/2023 4:47 AM EDT [facility] Comment:eGFR of <60 suggests chronic kidney disease if found over a 3 month period of time. eGFR <15 indicates renal failure. Blood Venipuncture / Unknown 09/24/2023 3:54 AM EDT 09/24/2023 4:01 AM EDT us Dede Rendon [employer]IST[employer] MANAGER LAB BLOOD ORDERABLES Final R esult [facility] [address] [place] [address], [place] [phone] * (ABNORMAL) Manual Differential (09/22/2023 3:22 AM EDT) Total Counted 100 09/22/2023 6:35 AM EDT [facility] % Neutros (manual) 90(H) 50 - 65 % 09/22/2023 6:35 AM EDT [facility] % Lymphs (manual) 5(L) 24 - 44 % 09/22/2023 6:35 AM EDT [facility] % Monos (manual) 5 4 - 5 % 09/22/19 6:35 AM EDT [facility] Platelet Estimate Adequate Adequate 09/22/2023 6:35 AM EDT [facility] Anisocytosis 1+ 09/22/2023 6:35 AM EDT [facility] Macrocytes 1+ 09/22/2023 6:35 AM EDT [facility] ANC# 11.16 K/??L 09/22/2023 6:35 AM EDT [facility] Blood Venipuncture / Unknown 09/22/2023 3:22 AM EDT 09/22/2023 3:33 AM EDT us Sim Cole MD LAB BLOOD ORDERABLES Final Re sult [facility] [address] [phone] * (ABNORMAL) Comprehensive metabolic panel (09/22/2023 3:22 AM EDT) Sodium 133(L) 136 - 146 meq/L 09/22/2023 4:08 AM EDT [facility] Potassium 4.7 3.5 - 5.1 meq/L 09/22/2023 4:08 AM EDT [facility] Chloride 103 102 - 112 meq/L 09/22/2023 4:08 AM EDT [facility] CO2 27 21 - 32 meq/L 09/22/2023 4:08 AM EDT [facility] Calcium 8.7 8.4 - 10.1 mg/dL 09/22/2023 4:08 AM EDT [facility] Glucose 105 74 - 106 mg/dL 09/22/2023 4:08 AM EDT [facility] BUN 24(H) 7 - 22 mg/dL 09/22/2023 4:08 AM EDT [facility] Creatinine 0.65 0.55 - 1.02 mg/dL 09/22/2023 4:08 AM EDT [facility] BUN/Creatinine 37(H) 8 - 20 09/22/2023 4:08 AM EDT [facility] Albumin 2.5(L) 3.4 - 5.0 g/dL 09/22/2023 4:08 AM EDT [facility] Alkaline Phosphatase 43 27 - 136 U/L 09/22/2023 4:08 AM EDT [facility] ALT 81(H) 13 - 56 U/L 09/22/2023 4:08 AM EDT [facility] AST 32 5 - 37 U/L 09/22/2023 4:08 AM EDT [facility] Total Bilirubin 1.0 0.2 - 1.2 mg/dL 09/22/2023 4:08 AM EDT [facility] Protein, Total 5.1(L) 6.4 - 8.2 gm/dL 09/22/2023 4:08 AM EDT [facility] Anion Gap 8(L) 9 - 20 09/22/2023 4:08 AM EDT [facility] A/G Ratio 1.0(L) 1.1 - 2.5 09/22/2023 4:08 AM EDT [facility] Globulin 2.6 1.5 - 4.5 g/dL 09/22/2023 4:08 AM [facility] Osmolality Calc 270.8 4:08 AM [facility] eGFR (mL/min/1.73m2) >60 >=60 mL/min/1.7 3m2 09/22/2023 4:08 AM EDT [facility] Comment:ESTIMATED GFR IS NOT ACCURATE CREATININE CLEARANCE IN PREDICTING GLOMERULAR FILTRATION RATE. ESTIMATED GFR IS NOT APPLICABLE FOR DIALYSIS PATIENTS. Blood Venipuncture / Unknown 09/22/2023 3:22 AM EDT 09/22/2023 3:33 AM EDT us Sim Cole MD LAB BLOOD ORDERABLES Final Re sult [facility] [address] [phone] * (ABNORMAL) CBC w Manual Diff (SJ-BKR) (09/22/2023 3:22 AM EDT) WBC 12.4(H) 4.0 - 10.0 K/??L 09/22/2023 3:53 AM EDT [facility] RBC 2.35(L) 3.93 - 5.22 M/??L 09/22/2023 3:53 AM EDT [facility] Hemoglobin 7.3(L) 11.2 - 15.7 GM/DL 09/22/2023 3:53 AM EDT [facility] Hematocrit 22.0(L) 34.1 - 44.9 % 09/22/2023 3:53 AM EDT [facility] MCV 94 79 - 95 fL 09/22/2023 3:53 AM EDT [facility] MCH 31.1 25.6 - 32.2 pg 09/22/2023 3:53 AM EDT [facility] MCHC 33.2 32.2 - 35.5 GM/DL 09/22/2023 3:53 AM EDT [facility] RDW 15.4(H) 11.7 - 14.4 % 09/22/2023 3:53 AM EDT [facility] Platelets 243 140 - 375 K/CU MM 09/22/2023 3:53 AM EDT [facility] MPV 9.6 9.4 - 12.3 fL 09/22/2023 3:53 AM EDT [facility] Blood Venipuncture / Unknown 09/22/2023 3:22 AM EDT 09/22/2023 3:33 AM EDT Narrative [facility] - 09/22/2023 3:53 AM EDT Manual differentials can only be ordered once in a 24 hour time period. Please order CBC with Auto Diff if needed. Note: reference ranges were changed on 07/13/2023. us Sim Cole MD LAB BLOOD ORDERABLES Final Re sult [facility] [address] [phone] * (ABNORMAL) Ammonia (09/22/2023 3:22 AM EDT) Ammonia <10(L) 11 - 32 ??mol/L 09/22/2023 3:55 AM EDT [facility] Comment:[employer] has become aware of sulfasalazine and sulfapyridine drug interference in the assays ALT, AST, T4, CKMB, glucose, and ammonia. The probability of misinterpretation of results for the assays is remote and would be limited to scenarios where a patient has taken the drug and had a blood sample drawn before clearance of the drug to a level that does not interfere with laboratory testing. Venipuncture should occur prior to administration of the drug. Blood Venipuncture / Unknown 09/22/2023 3:22 AM EDT 09/22/2023 3:33 AM EDT us Cornelius Mccarty MD LAB BLOOD ORDERABLES Final Resu lt Performing Organization Address [facility]/State/ZIP Co de Phone Number [facility] [address] [phone] * (ABNORMAL) CBC - Hemogram (SJ-BKR) (09/22/2023 3:22 AM EDT) WBC 12.6(H) 4.0 - 10.0 K/??L 09/22/2023 3:42 AM EDT [facility] RBC 2.43(L) 3.93 - 5.22 M/??L 09/22/2023 3:42 AM EDT [facility] Hemoglobin 7.5(L) 11.2 - 15.7 GM/DL 09/22/2023 3:42 AM EDT [facility] Hematocrit 22.8(L) 34.1 - 44.9 % 09/22/2023 3:42 AM EDT [facility] MCV 94 79 - 95 fL 09/22/2023 3:42 AM EDT [facility] MCH 30.9 25.6 - 32.2 pg 09/22/2023 3:42 AM EDT [facility] MCHC 32.9 32.2 - 35.5 GM/DL 09/22/2023 3:42 AM EDT [facility] RDW 15.1(H) 11.7 - 14.4 % 09/22/2023 3:42 AM EDT [facility] Platelets 251 140 - 375 K/CU MM 09/22/2023 3:42 AM EDT [facility] MPV 9.5 9.4 - 12.3 fL 09/22/2023 3:42 AM EDT [facility] Blood Venipuncture / Unknown 09/22/2023 3:22 AM EDT 09/22/2023 3:33 AM EDT Narrative [facility] - 09/22/2023 3:42 AM EDT Note: reference ranges were changed on 07/13/2023. us Cornelius Mccarty MD LAB BLOOD ORDERABLES Final Resu lt [facility] [address] [phone] * CT brain without IV contrast (09/21/2023 6:13 PM EDT) Anatomical Region Laterality Modality Brain, Head Computed Tomogra phy (CT) 09/21/2023 6:22 PM EDT Impressions 09/21/2023 6:23 PM EDT No acute intracranial hemorrhage or large acute cortical infarct. Images personally reviewed, interpreted and dictated by Sarwat Santos M.D. Narrative 09/21/2023 6:[address] HEAD WITHOUT IV CONTRAST ?? 09/21/2023 6:00 AM HISTORY: Mental status change, unknown cause TECHNIQUE: Multiple axial CT images were performed from the foramen magnum to the vertex. Coronal reformatted images were reconstructed from axial data set. Individualized dose reduction techniques using automated exposure control or adjustment of mA and/or kV according to the patient size were employed. COMPARISON: CT 09/13/2023, MRI 09/16/2023 FINDINGS: No acute intracranial hemorrhage or large acute cortical infarct. Chronic small vessel ischemic white matter changes and generalized cerebral volume loss are present. Ventricles are mildly prominent. No midline shift. The basal cisterns are patent. No skull fracture. The visualized paranasal sinuses and mastoid air cells are clear. Procedure Note Luis Lloyd MD - 09/21/2023 CT HEAD WITHOUT IV CONTRAST 09/21/2023 6:00 AM HISTORY: Mental status change, unknown cause TECHNIQUE: Multiple axial CT images were performed from the foramen magnum to the vertex. Coronal reformatted images were reconstructed from axial data set. Individualized dose reduction techniques using automated exposure control or adjustment of mA and/or kV according to the patient size were employed. COMPARISON: CT 09/13/2023, MRI 09/16/2023 FINDINGS: No acute intracranial hemorrhage or large acute cortical infarct. Chronic small vessel ischemic white matter changes and generalized cerebral volume loss are present. Ventricles are mildly prominent. No midline shift. The basal cisterns are patent. No skull fracture. The visualized paranasal sinuses and mastoid air cells are clear. IMPRESSION: No acute intracranial hemorrhage or large acute cortical infarct. Images personally reviewed, interpreted and dictated by Sarwat Santos M.D. Cornelius Mccarty MD IM CT ORDERABLES Final Result * (ABNORMAL) Blood gas, arterial (09/21/2023 5:05 PM EDT) pH, Arterial 7.48(H) 7.35 - 7.45 09/21/2023 5:31 PM EDT [facility] pCO2, Arterial 38 35 - 45 mm Hg 09/21/2023 5:31 PM EDT [facility] pO2, Arterial 76(L) 80 - 100 mm Hg 09/21/2023 5:31 PM EDT [facility] HCO3, Arterial 28(H) 20 - 26 mmol/L 09/21/2023 5:31 PM EDT [facility] Base Excess, Arterial 4.3(H) -2.0 - 2.0 mmol/L 09/21/2023 5:31 PM EDT [facility] O2 Sat, Arterial 97.0 95.0 - 100.0 % 09/21/2023 5:31 PM EDT [facility] CTO2 ARTERIAL 12.6 mmol/L 09/21/2023 5:31 PM EDT [facility] THB ARTERIAL 9.5(L) 12.0 - 18.0 g/dL 09/21/2023 5:31 PM EDT [facility] PaO2/FIO2 calculated 361.0 09/21/2023 5:31 PM EDT [facility] COLLECTION SITE Right Radial 09/21/2023 5:31 PM EDT [facility] Arterial Puncture Yes 09/21/2023 5:31 PM EDT [facility] Blood Gas PT Temperature C 37.0 09/21/2023 5:31 PM EDT [facility] Marques's Test Acceptable 09/21/2023 5:31 PM EDT [facility] ABG Number of Draw Attempts 1 09/21/2023 5:31 PM EDT [facility] Performed by: jenny deshpande 024 5:31 PM EDT [facility] FIO2 21.0 09/21/2023 5:31 PM EDT [facility] Blood Gas Temperature Corrected Results No No 09/21/2023 5:31 PM EDT [facility] Blood, Arterial ENTIRE RIGHT UPPER ARM / Unknown 09/21/2023 5:05 PM EDT 09/21/2023 5:31 PM EDT us Cornelius Mccarty MD LAB BLOOD ORDERABLES Final Resu lt Performing Organization Address City/State/[facility] Co de Phone Number [facility] [address] [phone] * (ABNORMAL) Iron and TIBC (09/21/2023 2:35 AM EDT) Iron 43.0(L) 50.0 - 170.0 ug/dL 09/21/2023 6:25 PM EDT [facility] TIBC 220(L) 250 - 450 ug/dL 09/21/2023 6:25 PM EDT [facility] % Saturation 20 15 - 55 % 09/21/2023 6:25 PM EDT [facility] UIBC 177 09/21/2023 6:25 PM EDT [facility] Blood Venipuncture / Unknown 09/21/2023 2:35 AM EDT 09/21/2023 3:04 AM EDT us Nathaniel Wakefield MD LAB BLOOD ORDERABLES Final Resul t [facility] [address] [phone] * (ABNORMAL) Basic Metabolic Panel (09/21/2023 2:35 AM EDT) Sodium 132(L) 136 - 146 meq/L 09/21/2023 3:37 AM EDT [facility] Potassium 4.5 3.5 - 5.1 meq/L 09/21/2023 3:37 AM EDT [facility] Chloride 99(L) 102 - 112 meq/L 09/21/2023 3:37 AM EDT [facility] CO2 29 21 - 32 meq/L 09/21/2023 3:37 AM EDT [facility] Anion Gap 9 9 - 20 09/21/2023 3:37 AM EDT [facility] BUN 27(H) 7 - 22 mg/dL 09/21/2023 3:37 AM EDT [facility] Creatinine 0.63 0.55 - 1.02 mg/dL 09/21/2023 3:37 AM EDT [facility] BUN/Creatinine 43(H) 8 - 20 09/21/2023 3:37 AM EDT [facility] Glucose 116(H) 74 - 106 mg/dL 09/21/2023 3:37 AM EDT [facility] Calcium 8.7 8.4 - 10.1 mg/dL 09/21/2023 3:37 AM EDT [facility] Osmolality Calc 270.6 3:37 AM EDT [facility] eGFR (mL/min/1.73m2) >60 >=60 mL/min/1.7 3m2 09/21/2023 3:37 AM EDT [facility] Comment:eGFR of <60 suggests chronic kidney disease if found over a 3 month period of time. eGFR <15 indicates renal failure. Blood Venipuncture / Unknown 09/21/2023 2:35 AM EDT 09/21/2023 3:04 AM EDT Haven Mooney MD LAB BLOOD ORDERABLES Final Resu lt [facility] [address] [phone] * (ABNORMAL) CBC - Hemogram (SJ-BKR) (09/21/2023 2:34 AM EDT) WBC 13.1(H) 4.0 - 10.0 K/??L 09/21/2023 3:20 AM EDT [facility] RBC 2.55(L) 3.93 - 5.22 M/??L 09/21/2023 3:20 AM EDT [facility] Hemoglobin 7.9(L) 11.2 - 15.7 GM/DL 09/21/2023 3:20 AM EDT [facility] Hematocrit 23.5(L) 34.1 - 44.9 % 09/21/2023 3:20 AM EDT [facility] MCV 92 79 - 95 fL 09/21/2023 3:20 AM EDT [facility] MCH 31.0 25.6 - 32.2 pg 09/21/2023 3:20 AM EDT [facility] MCHC 33.6 32.2 - 35.5 GM/DL 09/21/2023 3:20 AM EDT [facility] RDW 15.3(H) 11.7 - 14.4 % 09/21/2023 3:20 AM EDT [facility] Platelets 272 140 - 375 K/CU MM 09/21/2023 3:20 AM EDT [facility] MPV 10.0 9.4 - 12.3 fL 09/21/2023 3:20 AM EDT [facility] Blood Venipuncture / Unknown 09/21/2023 2:34 AM EDT 09/21/2023 3:04 AM EDT Narrative [facility] - 09/21/2023 3:20 AM EDT Note: reference ranges were changed on 07/13/2023. Cornelius Mccarty MD LAB BLOOD ORDERABLES Final Resu Performing Organization Address [facility] de Phone Number [facility] [address] [phone] * Ammonia (09/20/2023 2:30 AM EDT) Pathologist [facility] Ammonia 12 11 - 32 ??mol/L 09/20/2023 3:37 AM EDT [facility] Comment:[employer] has become aware of sulfasalazine and sulfapyridine drug interference in the assays ALT, AST, T4, CKMB, glucose, and ammonia. The probability of misinterpretation of results for the assays is remote and would be limited to scenarios where a patient has taken the drug and had a blood sample drawn before clearance of the drug to a level that does not interfere with laboratory testing. Venipuncture should occur prior to administration of the drug. Blood Venipuncture / Unknown 09/20/2023 2:30 AM EDT 09/20/2023 3:01 AM EDT Cornelius Mccarty MD LAB BLOOD ORDERABLES Final Resu Performing Organization Address [facility] Co de Phone Number [facility] [address] [phone] * Lactic Acid with reflex (SJ) (09/20/2023 2:30 AM EDT) Lactic Acid Level (mmol/L) 0.8 0.4 - 2.0 mmol/L 09/20/2023 3:25 AM EDT [facility] Comment:If a Lactic Acid Lev el with Reflex if Indicated result is greater than 2.0, a Lactic Acid Level will be ordered to be collected 2 hours after the original collection time. Blood Venipuncture / Unknown 09/20/2023 2:30 AM EDT 09/20/2023 3:01 AM EDT Cornelius Mccarty MD LAB BLOOD ORDERABLES Final Resu lt Performing Organization Address [facility] de Phone Number [facility] [address] [phone] * Procalcitonin (09/20/2023 2:29 AM EDT) Procalcitonin <0.14 <=0.50 ng/mL 09/20/2023 3:37 AM EDT [facility] Comment: Sepsis comment <0.5 Antibiotics Discouraged >0.5 Antibiotics Encouraged *Assessing Sepsis Risk and Severity* >2.0 ng/mL High Risk for Progression to severe sepsis and/or septic shock 0.5-2.0 ng/mL Sepsis should be considered <0.5 ng/mL Low Risk for Progression to Severe and/or septic shock Lower Respiratory Tract Infection (LRT) <0.25 Antibiotics Discouraged >0.25 Antibiotics Encouraged *Procalcitonin results should be interpreted carefully in settings that are known to falsely elevate results such as renal failure, trauma, localized infections and rice. Blood Venipuncture / Unknown 09/20/2023 2:29 AM EDT 09/20/2023 3:01 AM EDT Cornelius Mccarty MD LAB BLOOD ORDERABLES Final Resu lt Performing Organization Address [facility] Co de Phone Number [facility] [phone] [address] [phone] * (ABNORMAL) CBC - Hemogram (SJ-BKR) (09/20/2023 2:29 AM EDT) WBC 13.4(H) 4.0 - 10.0 K/??L 09/20/2023 3:16 AM EDT [facility] RBC 2.45(L) 3.93 - 5.22 M/??L 09/20/2023 3:16 AM EDT [facility] Hemoglobin 7.7(L) 11.2 - 15.7 GM/DL 09/20/2023 3:16 AM EDT [facility] Hematocrit 22.5(L) 34.1 - 44.9 % 09/20/2023 3:16 AM EDT [facility] MCV 92 79 - 95 fL 09/20/2023 3:16 AM EDT [facility] MCH 31.4 25.6 - 32.2 pg 09/20/2023 3:16 AM EDT [facility] MCHC 34.2 32.2 - 35.5 GM/DL 09/20/2023 3:16 AM EDT [facility] RDW 15.2(H) 11.7 - 14.4 % 09/20/2023 3:16 AM EDT [facility] Platelets 240 140 - 375 K/CU MM 09/20/2023 3:16 AM EDT [facility] MPV 9.7 9.4 - 12.3 fL 09/20/2023 3:16 AM EDT [facility] Blood Venipuncture / Unknown 09/20/2023 2:29 AM EDT 09/20/2023 3:01 AM EDT Narrative [facility] - 09/20/2023 3:16 AM EDT Note: reference ranges were changed on 07/13/2023. us Cornelius Mccarty MD LAB BLOOD ORDERABLES Final Resu lt [facility] [address] [phone] * (ABNORMAL) Basic Metabolic Panel (09/20/2023 2:29 AM EDT) Sodium 130(L) 136 - 146 meq/L 09/20/2023 3:25 AM EDT [facility] Potassium 4.4 3.5 - 5.1 meq/L 09/20/2023 3:25 AM EDT [facility] Chloride 98(L) 102 - 112 meq/L 09/20/2023 3:25 AM EDT [facility] CO2 27 21 - 32 meq/L 09/20/2023 3:25 AM EDT [facility] Anion Gap 9 9 - 20 09/20/2023 3:25 AM EDT [facility] BUN 26(H) 7 - 22 mg/dL 09/20/2023 3:25 AM EDT [facility] Creatinine 0.76 0.55 - 1.02 mg/dL 09/20/2023 3:25 AM EDT [facility] BUN/Creatinine 34(H) 8 - 20 09/20/2023 3:25 AM EDT [facility] Glucose 103 74 - 106 mg/dL 09/20/2023 3:25 AM EDT [facility] Calcium 8.5 8.4 - 10.1 mg/dL 09/20/2023 3:25 AM EDT [facility] Osmolality Calc 265.8 3:25 AM EDT [facility] eGFR (mL/min/1.73m2) >60 >=60 mL/min/1.7 3m2 09/20/2023 3:25 AM EDT [facility] Comment:eGFR of <60 suggests chronic kidney disease if found over a 3 month period of time. eGFR <15 indicates renal failure. Blood Venipuncture / Unknown 09/20/2023 2:29 AM EDT 09/20/2023 3:01 AM EDT Haven Mooney MD LAB BLOOD ORDERABLES Final Resu lt [facility] [address] [phone] * Blood Culture Arm, Right Lower (09/19/2023 11:46 AM EDT) Result No growth in 5 days 09/24/2023 1:44 PM EDT [facility] Blood STRUCTURE OF RIGHT FOREARM / Unknown Venipuncture / Unknown 09/19/2023 11:46 AM EDT 09/19/2023 12:15 PM EDT us Cornelius Mccarty MD MICROBIOLOGY - GENERAL ORDERABL ES Final Result Performing Organization Address City/[facility]/ZIP Co de Phone Number [facility] [address] [phone] * Blood Culture (09/19/2023 11:37 AM EDT) Result No growth in 5 days 09/24/2023 1:44 PM EDT [facility] Blood Venipuncture / Unknown 09/19/2023 11:37 AM EDT 09/19/2023 12:15 PM EDT us Cornelius Mccarty MD MICROBIOLOGY - GENERAL ORDERABL ES Final Result Performing Organization Address [facility] Co de Phone Number [facility] [address] [phone] * (ABNORMAL) Basic Metabolic Panel (09/19/2023 11:37 AM EDT) Sodium 130(L) 136 - 146 meq/L 09/19/2023 12:50 PM EDT [facility] Potassium 4.7 3.5 - 5.1 meq/L 09/19/2023 12:50 PM EDT [facility] Chloride 97(L) 102 - 112 meq/L 09/19/2023 12:50 PM EDT [facility] CO2 29 21 - 32 meq/L 09/19/2023 12:50 PM EDT [facility] Anion Gap 9 9 - 20 09/19/2023 12:50 PM EDT [facility] BUN 26(H) 7 - 22 mg/dL 09/19/2023 12:50 PM EDT [facility] Creatinine 0.80 0.55 - 1.02 mg/dL 09/19/2023 12:50 PM EDT [facility] BUN/Creatinine 33(H) 8 - 20 09/19/2023 12:50 PM EDT [facility] Glucose 99 74 - 106 mg/dL 09/19/2023 12:50 PM EDT [facility] Calcium 8.7 8.4 - 10.1 mg/dL 09/19/2023 12:50 PM EDT [facility] Osmolality Calc 265.6 12:50 PM EDT [facility] eGFR (mL/min/1.73m2) >60 >=60 mL/min/1.7 3m2 09/19/2023 12:50 PM EDT [facility] Comment:eGFR of <60 suggests chronic kidney disease if found over a 3 month period of time. eGFR <15 indicates renal failure. Blood Venipuncture / Unknown 09/19/2023 11:37 AM EDT 09/19/2023 12:12 PM EDT Cornelius Mccarty MD LAB BLOOD ORDERABLES Final Resu lt Performing Organization Address [facility]/ZIP Co de Phone Number [facility] [address] [phone] * (ABNORMAL) Creatine Kinase (CK) (09/19/2023 2:40 AM EDT) Total CK 538(H) 26 - 192 U/L 09/19/2023 9:45 AM EDT [facility] Blood Venipuncture / Unknown 09/19/2023 2:40 AM EDT 09/19/2023 2:59 AM EDT Cornelius Mccarty MD LAB BLOOD ORDERABLES Final Resu lt [facility] [address] [phone] * Ammonia (09/19/2023 2:40 AM EDT) Ammonia 18 11 - 32 ??mol/L 09/19/2023 3:31 AM EDT [facility] Comment:[employer] has become aware of sulfasalazine and sulfapyridine drug interference in the assays ALT, AST, T4, CKMB, glucose, and ammonia. The probability of misinterpretation of results for the assays is remote and would be limited to scenarios where a patient has taken the drug and had a blood sample drawn before clearance of the drug to a level that does not interfere with laboratory testing. Venipuncture should occur prior to administration of the drug. Blood Venipuncture / Unknown 09/19/2023 2:40 AM EDT 09/19/2023 3:00 AM EDT us Cornelius Mccarty MD LAB BLOOD ORDERABLES Final Resu lt [facility] [address] [phone] * (ABNORMAL) CBC - Hemogram (SJ-BKR) (09/19/2023 2:40 AM EDT) WBC 15.7(H) 4.0 - 10.0 K/??L 09/19/2023 3:09 AM EDT [facility] RBC 2.66(L) 3.93 - 5.22 M/??L 09/19/2023 3:09 AM EDT [facility] Hemoglobin 8.2(L) 11.2 - 15.7 GM/DL 09/19/2023 3:09 AM EDT [facility] Hematocrit 24.8(L) 34.1 - 44.9 % 09/19/2023 3:09 AM EDT [facility] MCV 93 79 - 95 fL 09/19/2023 3:09 AM EDT [facility] MCH 30.8 25.6 - 32.2 pg 09/19/2023 3:09 AM EDT [facility] MCHC 33.1 32.2 - 35.5 GM/DL 09/19/2023 3:09 AM EDT [facility] RDW 15.0(H) 11.7 - 14.4 % 09/19/2023 3:09 AM EDT [facility] Platelets 251 140 - 375 K/CU MM 09/19/2023 3:09 AM EDT [facility] MPV 9.8 9.4 - 12.3 fL 09/19/2023 3:09 AM EDT [facility] Blood Venipuncture / Unknown 09/19/2023 2:40 AM EDT 09/19/2023 2:59 AM EDT Narrative [facility] - 09/19/2023 3:09 AM EDT Note: reference ranges were changed on 07/13/2023. us Cornelius Mccarty MD LAB BLOOD ORDERABLES Final Resu lt [facility] [address] [phone] * (ABNORMAL) Basic Metabolic Panel (09/19/2023 2:40 AM EDT) Sodium 130(L) 136 - 146 meq/L 09/19/2023 3:35 AM EDT [facility] Potassium 5.0 3.5 - 5.1 meq/L 09/19/2023 3:35 AM EDT [facility] Chloride 100(L) 102 - 112 meq/L 09/19/2023 3:35 AM EDT [facility] CO2 28 21 - 32 meq/L 09/19/2023 3:35 AM EDT [facility] Anion Gap 7(L) 9 - 20 09/19/2023 3:35 AM EDT [facility] BUN 27(H) 7 - 22 mg/dL 09/19/2023 3:35 AM EDT [facility] Creatinine 0.80 0.55 - 1.02 mg/dL 09/19/2023 3:35 AM EDT [facility] BUN/Creatinine 34(H) 8 - 20 09/19/2023 3:35 AM EDT [facility] Glucose 110(H) 74 - 106 mg/dL 09/19/2023 3:35 AM EDT [facility] Calcium 8.2(L) 8.4 - 10.1 mg/dL 09/19/2023 3:35 AM EDT [facility] Osmolality Calc 266.6 3:35 AM EDT [facility] eGFR (mL/min/1.73m2) >60 >=60 mL/min/1.7 3m2 09/19/2023 3:35 AM EDT [facility] Comment:eGFR of <60 suggests chronic kidney disease if found over a 3 month period of time. eGFR <15 indicates renal failure. Blood Venipuncture / Unknown 09/19/2023 2:40 AM EDT 09/19/2023 2:59 AM EDT us Haven Mooney MD LAB BLOOD ORDERABLES Final Resu lt [facility] [address] [phone] * CT ABDOMEN/PELVIS WITHOUT IV CONTRAST Standard Protocol (09/18/2023 1:36 PM EDT) Anatomical Region Laterality Modality Abdomen, Pelvis Computed Tomogra phy (CT) 09/18/2023 1:56 PM EDT Impressions 09/18/2023 2:09 PM EDT Pleural effusions and bibasilar consolidation, probably secondary to pneumonia. Follow-up to complete resolution recommended. Mild right hydronephrosis of uncertain etiology. Constipation. Images reviewed, interpreted, and dictated by Jairo Acosta MD Narrative 09/18/2023 2:[address] SCAN OF THE ABDOMEN AND PELVIS WITHOUT CONTRAST; ?? 09/18/2023 1:26 PM HISTORY: Right psoas hematoma. COMPARISON: September 14, 2023. PROCEDURE: Axial images were obtained from the lung bases to the pubic symphysis by computed tomography. This study was performed with techniques to keep radiation doses as low as reasonably achievable, (ALARA). Individualized dose reduction techniques using automated exposure control or adjustment of mA and/or kV according to the patient size were employed. FINDINGS: ABDOMEN: A 5 mm nodule in the right middle lobe is stable. There are moderate bilateral pleural effusions. There is bibasilar consolidation. The gallbladder is absent. There is mild right hydronephrosis. There is no nephrolithiasis. The left kidney is unremarkable. There is extensive stool throughout the colon. PELVIS: Anasarca is noted. There is trace ascites. The urinary bladder is unremarkable. There is fecal impaction in the rectal vault. Procedure Note Nilesh Acosta MD - 09/18/2023 CT SCAN OF THE ABDOMEN AND PELVIS WITHOUT CONTRAST; 09/18/2023 1:26 PM HISTORY: Right psoas hematoma. COMPARISON: September 14, 2023. PROCEDURE: Axial images were obtained from the lung bases to the pubic symphysis by computed tomography. This study was performed with techniques to keep radiation doses as low as reasonably achievable, (ALARA). Individualized dose reduction techniques using automated exposure control or adjustment of mA and/or kV according to the patient size were employed. FINDINGS: ABDOMEN: A 5 mm nodule in the right middle lobe is stable. There are moderate bilateral pleural effusions. There is bibasilar consolidation. The gallbladder is absent. There is mild right hydronephrosis. There is no nephrolithiasis. The left kidney is unremarkable. There is extensive stool throughout the colon. PELVIS: Anasarca is noted. There is trace ascites. The urinary bladder is unremarkable. There is fecal impaction in the rectal vault. IMPRESSION: Pleural effusions and bibasilar consolidation, probably secondary to pneumonia. Follow-up to complete resolution recommended. Mild right hydronephrosis of uncertain etiology. Constipation. Images reviewed, interpreted, and dictated by Jairo Acosta MD us Nathaniel Wakefield MD IMG CT ORDERABLES Final Result * (ABNORMAL) Basic Metabolic Panel (09/18/2023 11:54 AM EDT) Sodium 130(L) 136 - 146 meq/L 09/18/2023 5:07 PM EDT [facility] Potassium 4.8 3.5 - 5.1 meq/L 09/18/2023 5:07 PM T [facility] Chloride 98(L) 102 - 112 meq/L 09/18/2023 5:07 PM EDT [facility] CO2 28 21 - 32 meq/L 09/18/2023 5:07 PM EDT [facility] Anion Gap 9 9 - 20 09/18/2023 5:07 PM EDT [facility] BUN 22 7 - 22 mg/dL 09/18/2023 5:07 PM EDT [facility] Creatinine 0.73 0.55 - 1.02 mg/dL 09/18/2023 5:07 PM EDT [facility] BUN/Creatinine 30(H) 8 - 20 09/18/2023 5:07 PM EDT [facility] Glucose 97 74 - 106 mg/dL 09/18/2023 5:07 PM EDT [facility] Calcium 8.4 8.4 - 10.1 mg/dL 09/18/2023 5:07 PM EDT [facility] Osmolality Calc 264.0 5:07 PM EDT [facility] eGFR (mL/min/1.73m2) >60 >=60 mL/min/1.7 3m2 09/18/2023 5:07 PM EDT [facility] Comment:eGFR of <60 suggests chronic kidney disease if found over a 3 month period of time. eGFR <15 indicates renal failure. Blood Venipuncture / Unknown 09/18/2023 11:54 AM EDT 09/18/2023 12:33 PM EDT us Cornelius Mccarty MD LAB BLOOD ORDERABLES Final Resu lt Performing Organization Address City/[facility]/ZIP Co de Phone Number [facility] [address] [phone] * (ABNORMAL) Sodium (09/18/2023 11:54 AM EDT) Sodium 130(L) 136 - 146 meq/L 09/18/2023 12:58 PM EDT [facility] Blood Venipuncture / Unknown 09/18/2023 11:54 AM EDT 09/18/2023 12:33 PM EDT us Flaco Alfaro MD LAB BLOOD ORDERABLES Final Re sult [facility] [address] [phone] * (ABNORMAL) Sodium (09/18/2023 6:48 AM EDT) Sodium 131(L) 136 - 146 meq/L 09/18/2023 7:23 AM EDT [facility] Blood Venipuncture / Unknown 09/18/2023 6:48 AM EDT 09/18/2023 6:55 AM EDT us Flaco Alfaro MD LAB BLOOD ORDERABLES Final Re sult [facility] [address] [phone] * (ABNORMAL) CBC - Hemogram (09/18/2023 6:46 AM EDT) WBC 14.9(H) 4.0 - 10.0 K/??L 09/18/2023 6:59 AM EDT [facility] RBC 2.60(L) 3.93 - 5.22 M/??L 09/18/2023 6:59 AM EDT [facility] Hemoglobin 8.1(L) 11.2 - 15.7 GM/DL 09/18/2023 6:59 AM EDT [facility] Hematocrit 23.3(L) 34.1 - 44.9 % 09/18/2023 6:59 AM EDT [facility] MCV 90 79 - 95 fL 09/18/2023 6:59 AM EDT [facility] MCH 31.2 25.6 - 32.2 pg 09/18/2023 6:59 AM EDT [facility] MCHC 34.8 32.2 - 35.5 GM/DL 09/18/2023 6:59 AM EDT [facility] RDW 14.6(H) 11.7 - 14.4 % 09/18/2023 6:59 AM EDT [facility] Platelets 234 140 - 375 K/CU MM 09/18/2023 6:59 AM EDT [facility] MPV 9.9 9.4 - 12.3 fL 09/18/2023 6:59 AM EDT [facility] Blood Venipuncture / Unknown 09/18/2023 6:46 AM EDT 09/18/2023 6:55 AM EDT Narrative [facility] - 09/18/2023 6:59 AM EDT Note: reference ranges were changed on 07/13/2023. us Cornelius Mccarty MD LAB BLOOD ORDERABLES Final Resu lt Performing Organization Address City/[facility]/ZIP Co de Phone Number [facility] [address] [phone] * (ABNORMAL) Sodium (09/18/2023 2:39 AM EDT) Sodium 130(L) 136 - 146 meq/L 09/18/2023 3:12 AM EDT [facility] Blood Venipuncture / Unknown 09/18/2023 2:39 AM EDT 09/18/2023 2:46 AM EDT us Flaco Alfaro MD LAB BLOOD ORDERABLES Final Re sult Performing Organization Address [facility]/ZIP Co de Phone Number [facility] [address] [phone] * (ABNORMAL) Sodium (09/17/2023 11:19 PM EDT) Sodium 130(L) 136 - 146 meq/L 09/17/2023 11:41 PM EDT [facility] Blood Venipuncture / Unknown 09/17/2023 11:19 PM EDT 09/17/2023 11:25 PM EDT us Flaco Alfaro MD LAB BLOOD ORDERABLES Final Re sult Performing Organization Address City/[facility]/ZIP Co de Phone Number [facility] [address] [phone] * (ABNORMAL) Sodium (09/17/2023 7:12 PM EDT) Sodium 130(L) 136 - 146 meq/L 09/17/2023 7:51 PM EDT [facility] Blood Venipuncture / Unknown 09/17/2023 7:12 PM EDT 09/17/2023 7:23 PM EDT us Flaco Alfaro MD LAB BLOOD ORDERABLES Final Re sult Performing Organization Address [facility] Co de Phone Number [facility] [address] [phone] * (ABNORMAL) Sodium (09/17/2023 2:38 PM EDT) Sodium 130(L) 136 - 146 meq/L 09/17/2023 3:20 PM EDT [facility] Blood Venipuncture / Unknown 09/17/2023 2:38 PM EDT 09/17/2023 2:53 PM EDT us Flaco Alfaro MD LAB BLOOD ORDERABLES Final Re sult Performing Organization Address [facility] Co de Phone Number [facility] [address] [phone] * Transfuse RBC, Leukoreduced (09/17/2023 1:52 PM EDT) us Ga Garcia MD [email or web address] TRANSFUSION ORDERABLES Final Result * (ABNORMAL) Sodium (09/17/2023 8:12 AM EDT) Sodium 130(L) 136 - 146 meq/L 09/17/2023 9:31 AM EDT [facility] Blood Venipuncture / Unknown 09/17/2023 8:12 AM EDT 09/17/2023 9:16 AM EDT us Flaco Alfaro MD LAB BLOOD ORDERABLES Final Re sult Performing Organization Address [facility] Co de Phone Number [facility] [address] [phone] * Type and Screen (09/17/2023 5:30 AM EDT) ABO/Rh O Positive 09/17/2023 5:22 AM EDT [facility] ([facility]) Antibody Screen Negative 09/17/2023 5:22 AM EDT [facility] ([facility] HISTCHK HIST CHECK PERFORMED 09/17/2023 5:22 AM EDT [facility] Blood Venipuncture / Unknown 09/17/2023 5:30 AM EDT 09/17/2023 5:36 AM EDT us Ga Garcia MD [facility] B[facility] TEST ORDERABLES Edited Result - Final [facility] ([facility]) [address] [place] [address] [phone] * Prepare RBC: 1 Units, Leukoreduced (09/17/2023 5:22 AM EDT) Issue Date/Time [id number] [facility] Product Identification Red Blood Cells [facility]) Product Code [id number] [facility] ([facility] Status Information Transfused [facility] Unit Number [id number] [facility] ([facility]) Blood Type 5100 [facility] Cross Match Results Compatible [facility] ([facility]) us Ga Garcia MD [email or web address] [email or web address] PRODUCT ORDERABLES Final Result [facility] [address] [place] [address] [place] [address], [place] [phone] * ABO/RH Confirmation/Retype (09/17/2023 4:09 AM EDT) RETYPE O POSITIVE 09/17/2023 5:42 AM EDT [facility] ([place]) Comment:[id number] Blood Venipuncture / Unknown 09/17/2023 4:09 AM EDT 09/17/2023 5:42 AM EDT us Cornelius Mccarty MD [facility] BLOOD BANK TEST ORDERABLES Final Result Performing Organization Address [facility]/ZIP Co de Phone Number [facility] ([place]) [address] [place] [address], [place] [phone] * (ABNORMAL) Sodium (09/17/2023 4:09 AM EDT) Sodium 131(L) 136 - 146 meq/L 09/17/2023 4:53 AM EDT [facility] Blood Venipuncture / Unknown 09/17/2023 4:09 AM EDT 09/17/2023 4:15 AM EDT us Flaco Alfaro MD LAB BLOOD ORDERABLES Final Re sult Performing Organization Address City/[facility]/ZIP Co de Phone Number [facility] [address] [place] [address] * (ABNORMAL) Comprehensive metabolic panel (09/17/2023 4:09 AM EDT) Sodium 131(L) 136 - 146 meq/L 09/17/2023 4:53 AM EDT [facility] Potassium 3.8 3.5 - 5.1 meq/L 09/17/2023 4:53 AM EDT [facility] Chloride 97(L) 102 - 112 meq/L 09/17/2023 4:53 AM EDT [facility] CO2 29 21 - 32 meq/L 09/17/2023 4:53 AM EDT [facility] Calcium 7.9(L) 8.4 - 10.1 mg/dL 09/17/2023 4:53 AM EDT [facility] Glucose 89 74 - 106 mg/dL 09/17/2023 4:53 AM [facility] BUN 20 7 - 22 mg/dL 09/17/2023 4:53 AM [facility] Creatinine 0.68 0.55 - 1.02 mg/dL 09/17/2023 4:53 AM [facility] BUN/Creatinine 29(H) 8 - 20 09/17/2023 4:53 AM [facility] Albumin 2.2(L) 3.4 - 5.0 g/dL 09/17/2023 4:53 AM [facility] Alkaline Phosphatase 34 27 - 136 U/L 09/17/2023 4:53 AM [facility] ALT 138(H) 13 - 56 U/L 09/17/2023 4:53 AM [facility] AST 98(H) 5 - 37 U/L 09/17/2023 4:53 AM [facility] Total Bilirubin 0.9 0.2 - 1.2 mg/dL 09/17/2023 4:53 AM [facility] Protein, Total 4.5(L) 6.4 - 8.2 gm/dL 09/17/2023 4:53 AM [facility] Anion Gap 9 9 - 20 09/17/2023 4:53 AM [facility] A/G Ratio 1.0(L) 1.1 - 2.5 09/17/2023 4:53 AM [facility] Globulin 2.3 1.5 - 4.5 g/dL 09/17/2023 4:53 AM [facility] Osmolality Calc 264.7 4:53 AM [facility] eGFR (mL/min/1.73m2) >60 >=60 mL/min/1.7 3m2 09/17/2023 4:53 AM [facility] Comment:ESTIMATED GFR IS NOT ACCURATE CREATININE CLEARANCE IN PREDICTING GLOMERULAR FILTRATION RATE. ESTIMATED GFR IS NOT APPLICABLE FOR DIALYSIS PATIENTS. Blood Venipuncture / Unknown 09/17/2023 4:09 AM EDT 09/17/2023 4:15 AM EDT us Sim Cole MD LAB BLOOD ORDERABLES Final Re sult [facility] [address] [phone] * (ABNORMAL) Creatine Kinase (CK) (09/17/2023 4:09 AM EDT) Total CK 1,186(H) 26 - 192 U/L 09/17/2023 4:53 AM EDT [facility] Blood Venipuncture / Unknown 09/17/2023 4:09 AM EDT 09/17/2023 4:15 AM EDT us Nathaniel Wakefield MD LAB BLOOD ORDERABLES Final Resul t Performing Organization Address [facility]/ZIP Co de Phone Number [facility] [address] [phone] * (ABNORMAL) CBC - Hemogram (SJ-BKR) (09/17/2023 4:09 AM EDT) WBC 15.1(H) 4.0 - 10.0 K/??L 09/17/2023 4:23 AM EDT [facility] RBC 2.31(L) 3.93 - 5.22 M/??L 09/17/2023 4:23 AM EDT [facility] Hemoglobin 6.9(L) 11.2 - 15.7 GM/DL 09/17/2023 4:23 AM EDT [facility] Hematocrit 20.3(L) 34.1 - 44.9 % 09/17/2023 4:23 AM EDT [facility] MCV 88 79 - 95 fL 09/17/2023 4:23 AM EDT [facility] MCH 29.9 25.6 - 32.2 pg 09/17/2023 4:23 AM EDT [facility] MCHC 34.0 32.2 - 35.5 GM/DL 09/17/2023 4:23 AM EDT [facility] RDW 14.6(H) 11.7 - 14.4 % 09/17/2023 4:23 AM EDT [facility] Platelets 232 140 - 375 K/CU MM 09/17/2023 4:23 AM EDT [facility] MPV 10.3 9.4 - 12.3 fL 09/17/2023 4:23 AM EDT [facility] Blood Venipuncture / Unknown 09/17/2023 4:09 AM EDT 09/17/2023 4:15 AM EDT Narrative [facility] - 09/17/2023 4:23 AM EDT Note: reference ranges were changed on 07/13/2023. us Cornelius Mccarty MD LAB BLOOD ORDERABLES Final Resu lt [facility] [address] [phone] * (ABNORMAL) Sodium (09/17/2023 12:05 AM EDT) Sodium 128(L) 136 - 146 meq/L 09/17/2023 12:47 AM EDT [facility] Blood Venipuncture / Unknown 09/17/2023 12:05 AM EDT 09/17/2023 12:26 AM EDT us Flaco Alfaro MD LAB BLOOD ORDERABLES Final Re sult [facility] [address] [phone] * (ABNORMAL) Sodium (09/16/2023 7:56 PM EDT) Sodium 128(L) 136 - 146 meq/L 09/16/2023 8:13 PM EDT [facility] Blood Venipuncture / Unknown 09/16/2023 7:56 PM EDT 09/16/2023 8:00 PM EDT us Flaco Alfaro MD LAB BLOOD ORDERABLES Final Re sult [facility] [address] [place] [id number], [place] [phone] * MR spine cervical without IV contrast (09/16/2023 5:13 PM EDT) Anatomical Region Laterality Modality C-spine Magnetic Resonan ce (MRI) 09/17/2023 8:16 AM EDT Impressions 09/17/2023 8:25 AM EDT Exam limited by motion artifact. Multilevel spondylosis and stenosis as above. In the region of the right sternocleidomastoid muscle is a loculated high T2 signal within the fluid fluid level measuring up to 2.6 cm. Could potentially be secondary to hematoma, correlate clinically. Images reviewed, interpreted, and dictated by Bossman Ramirez DO Narrative 09/17/2023 8:25 AM EDT MRI CERVICAL SPINE HISTORY: Increasing weakness after fall a few days. COMPARISON:Outside study from September 06, 2023 PROCEDURE: Multiplanar MR imaging of the cervical spine was performed in multiple MR sequences. FINDINGS: Exam is Limited secondary to significant motion artifact. Limited images of the posterior fossa are unremarkable. In the region of the right sternocleidomastoid muscle is a loculated high T2 signal within the fluid fluid level measuring up to 2.6 cm. Could potentially be secondary to hematoma, correlate clinically. Alignment appears appropriate without evidence of fracture. Assessment of the cervical cord is extremely limited. C2-C3: Disc osteophyte complex abuts thecal sac anteriorly, central canal and neural foramen appear patent. C3-C4: Disc osteophyte complex abuts thecal sac, central canal remains patent, moderate right and mild left foraminal narrowing. C4-C5: Disc osteophyte complex, asymmetric to the right. There is mild narrowing of the central canal and moderate to severe narrowing of the right and moderate narrowing of the left neural foramen. C5-C6: Disc osteophyte complex, asymmetric to the right. This abuts thecal sac anteriorly. Central canal remains patent, moderate right neural foraminal narrowing. C6-C7: Disc osteophyte complex, no central canal stenosis, mild narrowing of the bilateral neural foramen. C7-T1: No significant disc disease is present. There is no canal stenosis. Procedure Note Bossman Ramirez DO - 09/17/2023 MRI CERVICAL SPINE HISTORY: Increasing weakness after fall a few days. COMPARISON:Outside study from September 06, 2023 PROCEDURE: Multiplanar MR imaging of the cervical spine was performed in multiple MR sequences. FINDINGS: Exam is Limited secondary to significant motion artifact. Limited images of the posterior fossa are unremarkable. In the region of the right sternocleidomastoid muscle is a loculated high T2 signal within the fluid fluid level measuring up to 2.6 cm. Could potentially be secondary to hematoma, correlate clinically. Alignment appears appropriate without evidence of fracture. Assessment of the cervical cord is extremely limited. C2-C3: Disc osteophyte complex abuts thecal sac anteriorly, central canal and neural foramen appear patent. C3-C4: Disc osteophyte complex abuts thecal sac, central canal remains patent, moderate right and mild left foraminal narrowing. C4-C5: Disc osteophyte complex, asymmetric to the right. There is mild narrowing of the central canal and moderate to severe narrowing of the right and moderate narrowing of the left neural foramen. C5-C6: Disc osteophyte complex, asymmetric to the right. This abuts thecal sac anteriorly. Central canal remains patent, moderate right neural foraminal narrowing. C6-C7: Disc osteophyte complex, no central canal stenosis, mild narrowing of the bilateral neural foramen. C7-T1: No significant disc disease is present. There is no canal stenosis. IMPRESSION: Exam limited by motion artifact. Multilevel spondylosis and stenosis as above. In the region of the right sternocleidomastoid muscle is a loculated high T2 signal within the fluid fluid level measuring up to 2.6 cm. Could potentially be secondary to hematoma, correlate clinically. Images reviewed, interpreted, and dictated by Bossman Ramirez DO us Nathaniel Wakefield MD [facility] [place] MRI ORDERABLES Final Result * MR Brain Without IV Contrast (09/16/2023 5:00 PM EDT) Anatomical Region Laterality Modality Head, Brain Magnetic Resonan ce (MRI) 09/17/2023 12:1 7 AM EDT Impressions 09/17/2023 12:19 AM EDT No acute intracranial abnormalities. Images personally reviewed, interpreted and dictated by Sarwat Santos M.D. Narrative 09/17/2023 12:19 AM EDT MRI OF THE BRAIN HISTORY: Neuro deficit, acute, stroke suspected PROCEDURE: Multiplanar, multisequence MRI of the brain was performed without IV contrast. COMPARISON: CT 09/13/2023 FINDINGS: Diffusion weighted images demonstrate no evidence of acute infarct. No evidence of mass, hemorrhage or edema. Chronic small vessel ischemic white matter changes and generalized cerebral volume loss are present. The ventricles are prominent. There is no extra-axial collection or midline shift. Flow-voids are grossly preserved. Limited images of the proximal cord are unremarkable. Partial opacification of right sphenoid sinus. Small mastoid air cell effusions. Procedure Note Luis Lloyd MD - 09/17/2023 MRI OF THE BRAIN HISTORY: Neuro deficit, acute, stroke suspected PROCEDURE: Multiplanar, multisequence MRI of the brain was performed without IV contrast. COMPARISON: CT 09/13/2023 FINDINGS: Diffusion weighted images demonstrate no evidence of acute infarct. No evidence of mass, hemorrhage or edema. Chronic small vessel ischemic white matter changes and generalized cerebral volume loss are present. The ventricles are prominent. There is no extra-axial collection or midline shift. Flow-voids are grossly preserved. Limited images of the proximal cord are unremarkable. Partial opacification of right sphenoid sinus. Small mastoid air cell effusions. IMPRESSION: No acute intracranial abnormalities. Images personally reviewed, interpreted and dictated by Sarwat Santos M.D. us Nathaniel Wakefield MD [facility] MRI ORDERABLES Final Result * XR FEMUR RIGHT (09/16/2023 4:16 PM EDT) Anatomical Region Laterality Modality Femur X-Ray 09/16/2023 4:54 PM EDT Impressions 09/16/2023 4:55 PM EDT No acute bony abnormality. LEFT FEMUR SERIES HISTORY: Chronic left leg pain. COMPARISON: None. FINDINGS: ??A two view exam demonstrates no acute fracture or dislocation. The joint spaces appear unremarkable. No soft tissue abnormality is seen. IMPRESSION: No acute bony abnormality. Images reviewed, interpreted, and dictated by Dr. Jairo Acosta. Transcribed by Susie House PA-C. Narrative 09/16/2023 4:55 PM EDT RIGHT FEMUR SERIES HISTORY: Chronic right leg pain. COMPARISON: None. FINDINGS: ??A two view exam demonstrates no acute fracture or dislocation. The joint spaces appear unremarkable. No soft tissue abnormality is seen. Procedure Note Nilesh Acosta MD - 09/16/2023 RIGHT FEMUR SERIES HISTORY: Chronic right leg pain. COMPARISON: None. FINDINGS: A two view exam demonstrates no acute fracture or dislocation. The joint spaces appear unremarkable. No soft tissue abnormality is seen. IMPRESSION: No acute bony abnormality. LEFT FEMUR SERIES HISTORY: Chronic left leg pain. COMPARISON: None. FINDINGS: A two view exam demonstrates no acute fracture or dislocation. The joint spaces appear unremarkable. No soft tissue abnormality is seen. IMPRESSION: No acute bony abnormality. Images reviewed, interpreted, and dictated by Dr. Jairo Acosta. Transcribed by Susie House PA-C. Nathaniel Wakefield MD IM DIAGNOSTIC IMAGING ORDERABLE S Final Result * XR FEMUR LEFT (09/16/2023 4:12 PM EDT) Anatomical Region Laterality Modality Femur X-Ray 09/16/2023 4:54 PM EDT Impressions 09/16/2023 4:55 PM EDT No acute bony abnormality. LEFT FEMUR SERIES HISTORY: Chronic left leg pain. COMPARISON: None. FINDINGS: ??A two view exam demonstrates no acute fracture or dislocation. The joint spaces appear unremarkable. No soft tissue abnormality is seen. IMPRESSION: No acute bony abnormality. Images reviewed, interpreted, and dictated by Dr. Jairo Acosta. Transcribed by Susie House PA-C. Narrative 09/16/2023 4:55 PM EDT RIGHT FEMUR SERIES HISTORY: Chronic right leg pain. COMPARISON: None. FINDINGS: ??A two view exam demonstrates no acute fracture or dislocation. The joint spaces appear unremarkable. No soft tissue abnormality is seen. Procedure Note Nilesh Acosta MD - 09/16/2023 RIGHT FEMUR SERIES HISTORY: Chronic right leg pain. COMPARISON: None. FINDINGS: A two view exam demonstrates no acute fracture or dislocation. The joint spaces appear unremarkable. No soft tissue abnormality is seen. IMPRESSION: No acute bony abnormality. LEFT FEMUR SERIES HISTORY: Chronic left leg pain. COMPARISON: None. FINDINGS: A two view exam demonstrates no acute fracture or dislocation. The joint spaces appear unremarkable. No soft tissue abnormality is seen. IMPRESSION: No acute bony abnormality. Images reviewed, interpreted, and dictated by Dr. Jairo Acosta. Transcribed by Susie House PA-C. us Nathaniel Wakefield MD [facility] DIAGNOSTIC IMAGING ORDERABLE S Final Result * ECHO COMPLETE (DOPPLER / COLOR) WO CONTRAST (09/16/2023 3:50 PM EDT) Anatomical Region Laterality Modality Heart Vascular Ultraso und 09/16/2023 3:28 PM EDT Narrative 09/17/2023 9:13 AM EDT TRANSTHORACIC ECHOCARDIOGRAPHY REPORT Demographics Patient Name: ?SEAN REILLY ?: ?1950 ?Age: ?73 year(s) Corporate ID Number: ?? 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 Height: ? 63 inches ?RDCS Referring Physician: ?? TYSON Stearns ?Weight: ? 107 pounds Interpreting ? BENTON DALTON MD ??BMI: ?18.95 kg/m^2 Physician: Date of Service: ? 09/16/2023 ?Blood Pressure: 138/54 mmHg Room Number: ? 658 Type of Study: TTE procedure: ECHO COMPLETE (DOPPLER / COLOR) W OR WO CONTRAST. Patient Status: Routine IP Study Location: [facility] Quality: Good visualization Impression: ######################################## Indication: Shortness of breath R06.02 Normal sized left ventricle. Normal left ventricular wall thickness. Visually estimated ejection fraction 65% +/- 5%. Normal left ventricular systolic function. Normal left ventricular diastolic function. No hemodynamically significant valvular heart disease. ######################################## Measurements Summary: LVEDd: 3.04 cm ? LVESd: 1.88 cm ?IVSEd: 0.85 cm AO Root:3.18 cm ?LVPWd: 0.83 cm Contractility Score Normal Left Ventricular contractility was noted. LV regional wall motion: (0-Not visualized 1-Normal 2-Hypokinesis 3-Akinesis 4-Dyskinesis 5-Aneurysm) Left Ventricle Peak E-wave: 0.95 ?? Peak A-wave: 1.17 m/s ?? E/A ratio: 0.81 m/s ? Volume [id number] ?? LV length: 6.37 cm ml Volume [id number] ml LVOT diameter: 1.76 cm Normal sized left ventricle. Normal left ventricular wall thickness. Visually estimated ejection fraction 65% +/- 5%. Normal left ventricular systolic function. Unable to obtain bullseye average for strain due to irregular heart rhythm. Normal left ventricular diastolic function. No left ventricular masses or thrombi. Right Ventricle Diastolic dimension: 2.13 ? RV systolic pressure: 25.52 mmHg cm Normal sized right ventricle. Normal TAPSE c/w normal right ventricular function Left Atrium LA dimension: 2.2 cm ? LA volume:33.91 ml LA/Aorta: 0.69 Normal sized left atrium. Normal left atrial volume index Intact atrial septum. No atrial mass or thrombus. Right Atrium Normal sized right atrium. Intact atrial septum. No atrial mass or thrombus. Mitral Valve Deceleration time: 219.45 msec Thickened mitral valve leaflets. Trace mitral regurgitation. No mitral stenosis. No masses or vegetations seen. Aortic Valve LVOT VTI: 26.49 cm Mildly thickend free edges of the aortic valve leaflets. No aortic regurgitation. No aortic stenosis. No masses or vegetations seen. Tricuspid Valve TR velocity: 2.37 m/s ? TR gradient: 22.72271 mmHg Estimated RAP: 3 mmHg ? RVSP: 25.52 mmHg Structurally normal tricuspid valve. Mild (1+) tricuspid regurgitation. No tricuspid stenosis. No masses or vegetations seen. Pulmonic Valve Acceleration time: 129.18 msec ?PASP: 25.52 mmHg Structurally normal pulmonic valve. No pulmonic regurgitation. No pulmonic stenosis. No masses or vegetations seen. Great Vessels Aorta Aortic Root: 3.18 cm LVOT Diameter: 1.76 cm Visualized aorta is normal. Normal aortic root. No evidence of dissection. Normal IVC with appropriate collapse. Pericardium / Pleura No pericardial effusion. Procedure Note Benton Dalton MD - 09/17/2023 TRANSTHORACIC ECHOCARDIOGRAPHY REPORT Demographics Patient Name: SEAN REILLY : 1950 Age: 73 year(s) Corporate ID Number: [id number] Gender Female Metal Molder: Lluvia Heaton Height: 63 inches [facility] Referring Physician: TYSON Stearns Weight: 107 pounds Interpreting BENTON DALTON MD BMI: 18.95 kg/m^2 Physician: Date of Service: 09/16/2023 Blood Pressure: 138/54 mmHg Room Number: 658 Type of Study: TTE procedure: ECHO COMPLETE (DOPPLER / COLOR) W OR WO CONTRAST. Patient Status: Routine IP Study Location: [facility] Quality: Good visualization Impression: ######################################## Indication: Shortness of breath R06.02 Normal sized left ventricle. Normal left ventricular wall thickness. Visually estimated ejection fraction 65% +/- 5%. Normal left ventricular systolic function. Normal left ventricular diastolic function. No hemodynamically significant valvular heart disease. ######################################## Measurements Summary: LVEDd: 3.04 cm LVESd: 1.88 cm IVSEd: 0.85 cm AO Root:3.18 cm LVPWd: 0.83 cm Contractility Score Normal Left Ventricular contractility was noted. LV regional wall motion: (0-Not visualized 1-Normal 2-Hypokinesis 3-Akinesis 4-Dyskinesis 5-Aneurysm) Left Ventricle Peak E-wave: 0.95 Peak A-wave: 1.17 m/s E/A ratio: 0.81 m/s Volume .06 LV length: 6.37 cm ml Volume [id number] ml LVOT diameter: 1.76 cm Normal sized left ventricle. Normal left ventricular wall thickness. Visually estimated ejection fraction 65% +/- 5%. Normal left ventricular systolic function. Unable to obtain bullseye average for strain due to irregular heart rhythm. Normal left ventricular diastolic function. No left ventricular masses or thrombi. Right Ventricle Diastolic dimension: 2.13 RV systolic pressure: 25.52 mmHg cm Normal sized right ventricle. Normal TAPSE c/w normal right ventricular function Left Atrium LA dimension: 2.2 cm LA volume:33.91 ml LA/Aorta: 0.69 Normal sized left atrium. Normal left atrial volume index Intact atrial septum. No atrial mass or thrombus. Right Atrium Normal sized right atrium. Intact atrial septum. No atrial mass or thrombus. Mitral Valve Deceleration time: 219.45 msec Thickened mitral valve leaflets. Trace mitral regurgitation. No mitral stenosis. No masses or vegetations seen. Aortic Valve LVOT VTI: 26.49 cm Mildly thickend free edges of the aortic valve leaflets. No aortic regurgitation. No aortic stenosis. No masses or vegetations seen. Tricuspid Valve TR velocity: 2.37 m/s TR gradient: 22.76098 mmHg Estimated RAP: 3 mmHg RVSP: 25.52 mmHg Structurally normal tricuspid valve. Mild (1+) tricuspid regurgitation. No tricuspid stenosis. No masses or vegetations seen. Pulmonic Valve Acceleration time: 129.18 msec PASP: 25.52 mmHg Structurally normal pulmonic valve. No pulmonic regurgitation. No pulmonic stenosis. No masses or vegetations seen. Great Vessels Aorta Aortic Root: 3.18 cm LVOT Diameter: 1.76 cm Visualized aorta is normal. Normal aortic root. No evidence of dissection. Normal IVC with appropriate collapse. Pericardium / Pleura No pericardial effusion. us Susie Majano PA-C CV ECHO ORDERABLES Final Result * (ABNORMAL) Sodium (09/16/2023 3:44 PM EDT) Sodium 128(L) 136 - 146 meq/L 09/16/2023 4:20 PM EDT [facility] Blood Venipuncture / Unknown 09/16/2023 3:44 PM EDT 09/16/2023 4:06 PM EDT us Flaco Alfaro MD LAB BLOOD ORDERABLES Final Re sult Performing Organization Address [facility]/ZIP Co de Phone Number [facility] [address] [phone] * (ABNORMAL) Sodium (09/16/2023 12:16 PM EDT) Sodium 126(L) 136 - 146 meq/L 09/16/2023 1:35 PM EDT [facility] Blood Venipuncture / Unknown 09/16/2023 12:16 PM EDT 09/16/2023 1:16 PM EDT us Flaco Alfaro MD LAB BLOOD ORDERABLES Final Re sult Performing Organization Address [facility] Co de Phone Number [facility] [address] [phone] * (ABNORMAL) Sodium (09/16/2023 8:31 AM EDT) Sodium 126(L) 136 - 146 meq/L 09/16/2023 9:25 AM EDT [facility] Blood Venipuncture / Unknown 09/16/2023 8:31 AM EDT 09/16/2023 9:02 AM EDT Flaco Alfaro MD LAB BLOOD ORDERABLES Final Re sult Performing Organization Address [facility] Co de Phone Number [facility] [address] [phone] * XR chest AP portable (09/16/2023 8:10 AM EDT) Anatomical Region Laterality Modality Chest X-Ray 09/16/2023 11:0 3 AM EDT Impressions 09/16/2023 11:04 AM EDT No acute cardiopulmonary process. Images reviewed, interpreted, and dictated by Dr. Jairo Acosta. Transcribed by Jane Stephens PA-C. Narrative 09/16/2023 11:04 AM EDT PORTABLE CHEST. ?09/16/2023 7:55 AM HISTORY: Shortness of breath. COMPARISON: September 12, 2023. FINDINGS: The cardiac silhouette is normal in size. The mediastinum is unremarkable. The lungs are clear. There is no pneumothorax. Procedure Note Nilesh Acosta MD - 09/16/2023 PORTABLE CHEST. 09/16/2023 7:55 AM HISTORY: Shortness of breath. COMPARISON: September 12, 2023. FINDINGS: The cardiac silhouette is normal in size. The mediastinum is unremarkable. The lungs are clear. There is no pneumothorax. IMPRESSION: No acute cardiopulmonary process. Images reviewed, interpreted, and dictated by Dr. Jairo Acosta. Transcribed by Jane Stephens PA-C. us Susie Majano PA-C IMG DIAGNOSTIC IMAGING ORDERABLE S Final Result * TSH with Reflex FT4 (09/16/2023 2:21 AM EDT) TSH 2.500 0.358 - 3.740 uIU/mL 09/16/2023 3:20 AM EDT [facility] Blood Venipuncture / Unknown 09/16/2023 2:21 AM EDT 09/16/2023 2:36 AM EDT Narrative [facility] - 09/16/2023 3:20 AM EDT Biotin supplements can cause clinically significant incorrect lab results. The FDA has seen an increase in the number of adverse events related to Biotin interference with lab tests. us Nathaniel Wakefield MD LAB BLOOD ORDERABLES Final Resul t [facility] [address] [place], [place] [id number] [phone] * (ABNORMAL) Creatine Kinase (CK) (09/16/2023 2:21 AM EDT) Total CK 2,217(H) 26 - 192 U/L 09/16/2023 3:20 AM EDT [facility] Blood Venipuncture / Unknown 09/16/2023 2:21 AM EDT 09/16/2023 2:36 AM EDT Nathaniel Wakefield MD LAB BLOOD ORDERABLES Final Resul t Performing Organization Address [facility] de Phone Number [facility] [address] [phone] * (ABNORMAL) Ammonia (09/16/2023 2:21 AM EDT) Pathologist [facility] Ammonia <10(L) 11 - 32 ??mol/L 09/16/2023 3:03 AM EDT [facility] Comment:[employer] has become aware of sulfasalazine and sulfapyridine drug interference in the assays ALT, AST, T4, CKMB, glucose, and ammonia. The probability of misinterpretation of results for the assays is remote and would be limited to scenarios where a patient has taken the drug and had a blood sample drawn before clearance of the drug to a level that does not interfere with laboratory testing. Venipuncture should occur prior to administration of the drug. Blood Venipuncture / Unknown 09/16/2023 2:21 AM EDT 09/16/2023 2:36 AM EDT us Cornelius Mccarty MD LAB BLOOD ORDERABLES Final Resu lt Performing Organization Address [facility] Co de Phone Number [facility] [address] [phone] * (ABNORMAL) Basic Metabolic Panel (09/16/2023 2:21 AM EDT) Pathologist [facility] Sodium 125(L) 136 - 146 meq/L 09/16/2023 3:20 AM EDT [facility] Potassium 4.3 3.5 - 5.1 meq/L 09/16/2023 3:20 AM EDT [facility] Chloride 92(L) 102 - 112 meq/L 09/16/2023 3:20 AM EDT [facility] CO2 29 21 - 32 meq/L 09/16/2023 3:20 AM EDT [facility] Anion Gap 8(L) 9 - 20 09/16/2023 3:20 AM EDT [facility] BUN 16 7 - 22 mg/dL 09/16/2023 3:20 AM EDT [facility] Creatinine 0.69 0.55 - 1.02 mg/dL 09/16/2023 3:20 AM EDT [facility] BUN/Creatinine 23(H) 8 - 20 09/16/2023 3:20 AM EDT [facility] Glucose 106 74 - 106 mg/dL 09/16/2023 3:20 AM EDT [facility] Calcium 8.6 8.4 - 10.1 mg/dL 09/16/2023 3:20 AM EDT [facility] Osmolality Calc 253.1 3:20 AM EDT [facility] eGFR (mL/min/1.73m2) >60 >=60 mL/min/1.7 3m2 09/16/2023 3:20 AM EDT [facility] Comment:eGFR of <60 suggests chronic kidney disease if found over a 3 month period of time. eGFR <15 indicates renal failure. Blood Venipuncture / Unknown 09/16/2023 2:21 AM EDT 09/16/2023 2:36 AM EDT us Cornelius Mccarty MD LAB BLOOD ORDERABLES Final Resu lt [facility] [address] [phone] * (ABNORMAL) CBC - Hemogram (SJ-BKR) (09/16/2023 2:20 AM EDT) WBC 15.0(H) 4.0 - 10.0 K/??L 09/16/2023 2:41 AM EDT [facility] RBC 2.74(L) 3.93 - 5.22 M/??L 09/16/2023 2:41 AM EDT [facility] Hemoglobin 8.1(L) 11.2 - 15.7 GM/DL 09/16/2023 2:41 AM EDT [facility] Hematocrit 23.5(L) 34.1 - 44.9 % 09/16/2023 2:41 AM EDT [facility] MCV 86 79 - 95 fL 09/16/2023 2:41 AM EDT [facility] MCH 29.6 25.6 - 32.2 pg 09/16/2023 2:41 AM EDT [facility] MCHC 34.5 32.2 - 35.5 GM/DL 09/16/2023 2:41 AM EDT [facility] RDW 13.8 11.7 - 14.4 % 09/16/2023 2:41 AM EDT [facility] Platelets 259 140 - 375 K/CU MM 09/16/2023 2:41 AM EDT [facility] MPV 10.6 9.4 - 12.3 fL 09/16/2023 2:41 AM EDT [facility] Blood Venipuncture / Unknown 09/16/2023 2:20 AM EDT 09/16/2023 2:36 AM EDT Narrative [facility] - 09/16/2023 2:41 AM EDT Note: reference ranges were changed on 07/13/2023. us Cornelius Mccarty MD LAB BLOOD ORDERABLES Final Resu lt [facility] [address] [phone] * (ABNORMAL) Sodium (09/15/2023 9:12 PM EDT) Sodium 125(L) 136 - 146 meq/L 09/15/2023 9:34 PM EDT [facility] Blood Venipuncture / Unknown 09/15/2023 9:12 PM EDT 09/15/2023 9:15 PM EDT us Flaco Alfaro MD LAB BLOOD ORDERABLES Final Re sult Performing Organization Address [facility]/ZIP Co de Phone Number [facility] [address] [phone] * (ABNORMAL) Sodium (09/15/2023 5:15 PM EDT) Sodium 126(L) 136 - 146 meq/L 09/15/2023 5:45 PM EDT [facility] Blood Venipuncture / Unknown 09/15/2023 5:15 PM EDT 09/15/2023 5:22 PM EDT Flaco Alfaro MD LAB BLOOD ORDERABLES Final Re sult Performing Organization Address [facility] Co de Phone Number [facility] [address] [phone] * (ABNORMAL) Sodium (09/15/2023 1:25 PM EDT) Sodium 124(L) 136 - 146 meq/L 09/15/2023 1:50 PM EDT [facility] Blood Venipuncture / Unknown 09/15/2023 1:25 PM EDT 09/15/2023 1:30 PM EDT Flaco Alfaro MD LAB BLOOD ORDERABLES Final Re sult Performing Organization Address [facility] Co de Phone Number [facility] [address] [phone] * MR spine lumbar without IV contrast (09/15/2023 12:26 PM EDT) Anatomical Region Laterality Modality L-spine Magnetic Resonan ce (MRI) 09/15/2023 12:5 2 PM EDT Impressions 09/15/2023 1:31 PM EDT 1. Posterolateral disc protrusions L3-4 and L4-5 with bilateral facet hypertrophy. Mild to moderate bilateral neural foraminal compromise. 2. No evidence of acute osseous abnormality. NONINFUSED THORACIC SPINE MRI HISTORY: Back pain. FINDINGS: On the sagittal images, abnormal decreased signal is identified throughout the thoracic discs. Vertebrae are of normal height. No malalignment is seen. Thoracic cord demonstrates normal signal and configuration. On the axial images, there is no evidence of significant disc bulge or protrusion. Incidental note is made of moderate bilateral pleural effusions. IMPRESSION: 1. Diffuse changes of degenerative disc disease, without evidence of significant spinal or neural foraminal compromise. 2. No evidence of acute osseous abnormality. 3. Moderate bilateral pleural effusions. Images reviewed, interpreted, and dictated by Jose Barnes MD Narrative 09/15/2023 1:31 PM EDT Name: BIRGIT ESTRADA : 1950 NONINFUSED LUMBAR SPINE MRI HISTORY: Severe hip pain and leg weakness. FINDINGS: On the sagittal images, mild decreased signal is identified throughout the lumbar discs. Vertebrae are of normal height. No malalignment is seen. L1-2: No disc bulge or protrusion. L2-3: No disc bulge or protrusion. L3-4: Mild to moderate diffuse disc bulge is present. Small posterolateral disc protrusions are present. There is mild to moderate bilateral neural foraminal narrowing. Moderate hypertrophic changes are seen at the facet joints bilaterally. L4-5: Mild to moderate diffuse disc bulge is present. Small posterolateral disc protrusions are present. There is mild to moderate bilateral neural foraminal narrowing. Moderate hypertrophic changes are seen at the facet joints bilaterally. L5-S1: No significant disc bulge or protrusion. Procedure Note Jose Barnes MD - 09/15/2023 Name: BIRGIT ESTRADA : 1950 NONINFUSED LUMBAR SPINE MRI HISTORY: Severe hip pain and leg weakness. FINDINGS: On the sagittal images, mild decreased signal is identified throughout the lumbar discs. Vertebrae are of normal height. No malalignment is seen. L1-2: No disc bulge or protrusion. L2-3: No disc bulge or protrusion. L3-4: Mild to moderate diffuse disc bulge is present. Small posterolateral disc protrusions are present. There is mild to moderate bilateral neural foraminal narrowing. Moderate hypertrophic changes are seen at the facet joints bilaterally. L4-5: Mild to moderate diffuse disc bulge is present. Small posterolateral disc protrusions are present. There is mild to moderate bilateral neural foraminal narrowing. Moderate hypertrophic changes are seen at the facet joints bilaterally. L5-S1: No significant disc bulge or protrusion. IMPRESSION: 1. Posterolateral disc protrusions L3-4 and L4-5 with bilateral facet hypertrophy. Mild to moderate bilateral neural foraminal compromise. 2. No evidence of acute osseous abnormality. NONINFUSED THORACIC SPINE MRI HISTORY: Back pain. FINDINGS: On the sagittal images, abnormal decreased signal is identified throughout the thoracic discs. Vertebrae are of normal height. No malalignment is seen. Thoracic cord demonstrates normal signal and configuration. On the axial images, there is no evidence of significant disc bulge or protrusion. Incidental note is made of moderate bilateral pleural effusions. IMPRESSION: 1. Diffuse changes of degenerative disc disease, without evidence of significant spinal or neural foraminal compromise. 2. No evidence of acute osseous abnormality. 3. Moderate bilateral pleural effusions. Images reviewed, interpreted, and dictated by Jose Barnes MD us Nathaniel Wakefield MD IM MRI ORDERABLES Final Result * MR thoracic spine without IV contrast (09/15/2023 12:17 PM EDT) Anatomical Region Laterality Modality T-spine Magnetic Resonan ce (MRI) 09/15/2023 12:5 2 PM EDT Impressions 09/15/2023 1:31 PM EDT 1. Posterolateral disc protrusions L3-4 and L4-5 with bilateral facet hypertrophy. Mild to moderate bilateral neural foraminal compromise. 2. No evidence of acute osseous abnormality. NONINFUSED THORACIC SPINE MRI HISTORY: Back pain. FINDINGS: On the sagittal images, abnormal decreased signal is identified throughout the thoracic discs. Vertebrae are of normal height. No malalignment is seen. Thoracic cord demonstrates normal signal and configuration. On the axial images, there is no evidence of significant disc bulge or protrusion. Incidental note is made of moderate bilateral pleural effusions. IMPRESSION: 1. Diffuse changes of degenerative disc disease, without evidence of significant spinal or neural foraminal compromise. 2. No evidence of acute osseous abnormality. 3. Moderate bilateral pleural effusions. Images reviewed, interpreted, and dictated by Jose Barnes MD Narrative 09/15/2023 1:31 PM EDT Name: BIRGIT ESTRADA : 1950 NONINFUSED LUMBAR SPINE MRI HISTORY: Severe hip pain and leg weakness. FINDINGS: On the sagittal images, mild decreased signal is identified throughout the lumbar discs. Vertebrae are of normal height. No malalignment is seen. L1-2: No disc bulge or protrusion. L2-3: No disc bulge or protrusion. L3-4: Mild to moderate diffuse disc bulge is present. Small posterolateral disc protrusions are present. There is mild to moderate bilateral neural foraminal narrowing. Moderate hypertrophic changes are seen at the facet joints bilaterally. L4-5: Mild to moderate diffuse disc bulge is present. Small posterolateral disc protrusions are present. There is mild to moderate bilateral neural foraminal narrowing. Moderate hypertrophic changes are seen at the facet joints bilaterally. L5-S1: No significant disc bulge or protrusion. Procedure Note Jose Barnes MD - 09/15/2023 Name: BIRGIT ESTRADA : 1950 NONINFUSED LUMBAR SPINE MRI HISTORY: Severe hip pain and leg weakness. FINDINGS: On the sagittal images, mild decreased signal is identified throughout the lumbar discs. Vertebrae are of normal height. No malalignment is seen. L1-2: No disc bulge or protrusion. L2-3: No disc bulge or protrusion. L3-4: Mild to moderate diffuse disc bulge is present. Small posterolateral disc protrusions are present. There is mild to moderate bilateral neural foraminal narrowing. Moderate hypertrophic changes are seen at the facet joints bilaterally. L4-5: Mild to moderate diffuse disc bulge is present. Small posterolateral disc protrusions are present. There is mild to moderate bilateral neural foraminal narrowing. Moderate hypertrophic changes are seen at the facet joints bilaterally. L5-S1: No significant disc bulge or protrusion. IMPRESSION: 1. Posterolateral disc protrusions L3-4 and L4-5 with bilateral facet hypertrophy. Mild to moderate bilateral neural foraminal compromise. 2. No evidence of acute osseous abnormality. NONINFUSED THORACIC SPINE MRI HISTORY: Back pain. FINDINGS: On the sagittal images, abnormal decreased signal is identified throughout the thoracic discs. Vertebrae are of normal height. No malalignment is seen. Thoracic cord demonstrates normal signal and configuration. On the axial images, there is no evidence of significant disc bulge or protrusion. Incidental note is made of moderate bilateral pleural effusions. IMPRESSION: 1. Diffuse changes of degenerative disc disease, without evidence of significant spinal or neural foraminal compromise. 2. No evidence of acute osseous abnormality. 3. Moderate bilateral pleural effusions. Images reviewed, interpreted, and dictated by Jose Barnes MD us Nathaniel Wakefield MD IMG MRI ORDERABLES Final Result * Glucose, Nova Meter (09/15/2023 10:36 AM EDT) [facility] POC-GLUCOSE 107 70 - 110 mg/dL 09/15/2023 10:37 AM EDT [facility] Comment: In the event of poor peripheral blood flow, venous or arterial blood should be used due to the potential of erroneous results. No action Require [employer]ating [employer]er [id number] 09/15/2023 10:37 AM EDT [facility] Blood WHOLE BLOOD / Unknown 09/15/2023 10:36 AM EDT 09/15/2023 10:37 AM EDT Narrative [facility] - 09/15/2023 10:37 AM EDT Rotating Field Assembler ID is - [id number] us Cornelius Mccarty MD POINT OF CARE TEST ORDERABLES F inal Result [facility] [address] [phone] * (ABNORMAL) Sodium (09/15/2023 8:08 AM EDT) [facility] Sodium 126(L) 136 - 146 meq/L 09/15/2023 8:42 AM EDT [facility] Blood Venipuncture / Unknown 09/15/2023 8:08 AM EDT 09/15/2023 8:28 AM EDT us Flaco Alfaro MD LAB BLOOD ORDERABLES Final Re sult [facility] [address] [phone] * Glucose, Nova Meter (09/15/2023 5:46 AM EDT) [facility] POC-GLUCOSE 101 70 - 110 mg/dL 09/15/2023 5:47 AM EDT [facility] Comment: In the event of poor peripheral blood flow, venous or arterial blood should be used due to the potential of erroneous results. Protocols Followed [employer]ating [employer]er [id number] 09/15/2023 5:47 AM EDT [facility] Blood WHOLE BLOOD / Unknown 09/15/2023 5:46 AM EDT 09/15/2023 5:47 AM EDT Narrative [facility] - 09/15/2023 5:47 AM EDT Rotating Field Assembler ID is - [id number] us Cornelius Mccarty MD POINT OF CARE TEST ORDERABLES F inal Result Performing Organization Address City/[facility]/ZIP Co de Phone Number [facility] [address] [phone] * (ABNORMAL) Sodium (09/15/2023 2:36 AM EDT) [facility] Sodium 126(L) 136 - 146 meq/L 09/15/2023 3:36 AM EDT [facility] Blood Venipuncture / Unknown 09/15/2023 2:36 AM EDT 09/15/2023 2:51 AM EDT us Flaco Alfaro MD LAB BLOOD ORDERABLES Final Re sult [facility] [address] [phone] * (ABNORMAL) Creatine Kinase (CK) (09/15/2023 2:36 AM EDT) Pathologist [facility] Total CK 3,345(H) 26 - 192 U/L 09/15/2023 3:36 AM EDT [facility] Blood Venipuncture / Unknown 09/15/2023 2:36 AM EDT 09/15/2023 2:51 AM EDT us Nathaniel Wakefield MD LAB BLOOD ORDERABLES Final Resul t Performing Organization Address [facility]/ZIP Co de Phone Number [facility] [address] [place] [address], [place] [phone] * (ABNORMAL) CBC - Hemogram (SJ-BKR) (09/15/2023 2:36 AM EDT) WBC 15.7(H) 4.0 - 10.0 K/??L 09/15/2023 2:57 AM EDT [facility] RBC 3.15(L) 3.93 - 5.22 M/??L 09/15/2023 2:57 AM EDT [facility] Hemoglobin 9.4(L) 11.2 - 15.7 GM/DL 09/15/2023 2:57 AM EDT [facility] Hematocrit 26.6(L) 34.1 - 44.9 % 09/15/2023 2:57 AM EDT [facility] MCV 84 79 - 95 fL 09/15/2023 2:57 AM EDT [facility] MCH 29.8 25.6 - 32.2 pg 09/15/2023 2:57 AM EDT [facility] MCHC 35.3 32.2 - 35.5 GM/DL 09/15/2023 2:57 AM EDT [facility] RDW 13.2 11.7 - 14.4 % 09/15/2023 2:57 AM EDT [facility] Platelets 259 140 - 375 K/CU MM 09/15/2023 2:57 AM EDT [facility] MPV 11.0 9.4 - 12.3 fL 09/15/2023 2:57 AM EDT [facility] Blood Venipuncture / Unknown 09/15/2023 2:36 AM EDT 09/15/2023 2:54 AM EDT Narrative [facility] - 09/15/2023 2:57 AM EDT Note: reference ranges were changed on 07/13/2023. Cornelius Mccarty MD LAB BLOOD ORDERABLES Final Resu lt [facility] [address] [place] [address], [place] [phone] * (ABNORMAL) Basic Metabolic Panel (09/15/2023 2:36 AM EDT) Sodium 126(L) 136 - 146 meq/L 09/15/2023 3:36 AM EDT [facility] Potassium 4.1 3.5 - 5.1 meq/L 09/15/2023 3:36 AM EDT [facility] Chloride 91(L) 102 - 112 meq/L 09/15/2023 3:36 AM EDT [facility] CO2 27 21 - 32 meq/L 09/15/2023 3:36 AM EDT [facility] Anion Gap 12 9 - 20 09/15/2023 3:36 AM EDT [facility] BUN 19 7 - 22 mg/dL 09/15/2023 3:36 AM EDT [facility] Creatinine 0.82 0.55 - 1.02 mg/dL 09/15/2023 3:36 AM EDT [facility] BUN/Creatinine 23(H) 8 - 20 09/15/2023 3:36 AM EDT [facility] Glucose 112(H) 74 - 106 mg/dL 09/15/2023 3:36 AM EDT [facility] Calcium 8.4 8.4 - 10.1 mg/dL 09/15/2023 3:36 AM EDT [facility] Osmolality Calc 256.4 3:36 AM EDT [facility] eGFR (mL/min/1.73m2) >60 >=60 mL/min/1.7 3m2 09/15/2023 3:36 AM EDT [facility] Comment:eGFR of <60 suggests chronic kidney disease if found over a 3 month period of time. eGFR <15 indicates renal failure. Blood Venipuncture / Unknown 09/15/2023 2:36 AM EDT 09/15/2023 2:51 AM EDT us Cornelius Mccarty MD LAB BLOOD ORDERABLES Final Resu lt Performing Organization Address City/[facility]/ZIP Co de Phone Number [facility] [address] [phone] * (ABNORMAL) Ammonia (09/15/2023 2:35 AM EDT) Pathologist [facility] Ammonia <10(L) 11 - 32 ??mol/L 09/15/2023 3:11 AM EDT [facility] Comment:[employer] has become aware of sulfasalazine and sulfapyridine drug interference in the assays ALT, AST, T4, CKMB, glucose, and ammonia. The probability of misinterpretation of results for the assays is remote and would be limited to scenarios where a patient has taken the drug and had a blood sample drawn before clearance of the drug to a level that does not interfere with laboratory testing. Venipuncture should occur prior to administration of the drug. Blood Venipuncture / Unknown 09/15/2023 2:35 AM EDT 09/15/2023 2:51 AM EDT us Cornelius Mccarty MD LAB BLOOD ORDERABLES Final Resu lt Performing Organization Address [facility] Co de Phone Number [facility] [address] [phone] * (ABNORMAL) Glucose, Nova Meter (09/15/2023 12:05 AM EDT) Pathologist [facility] POC-GLUCOSE 129(H) 70 - 110 mg/dL 09/15/2023 12:07 AM EDT [facility] Comment: In the event of poor peripheral blood flow, venous or arterial blood should be used due to the potential of erroneous results. Protocols Followed [employer]ating [employer]er [id number] 09/15/2023 12:07 AM EDT [facility] Blood WHOLE BLOOD / Unknown 09/15/2023 12:05 AM EDT 09/15/2023 12:07 AM EDT Narrative [facility] - 09/15/2023 12:07 AM EDT Rotating Field Assembler ID is - [id number] us Yasser Zohary MD POINT OF CARE TEST ORDERABLES F inal Result [facility] [address] [phone] * (ABNORMAL) Sodium (09/14/2023 8:17 PM EDT) Sodium 126(L) 136 - 146 meq/L 09/14/2023 8:40 PM EDT [facility] Blood Venipuncture / Unknown 09/14/2023 8:17 PM EDT 09/14/2023 8:22 PM EDT Flaco Alfaro MD LAB BLOOD ORDERABLES Final Re sult Performing Organization Address [facility] Co de Phone Number [facility] [address] [phone] * Glucose, Nova Meter (09/14/2023 5:40 PM EDT) [facility] POC-GLUCOSE 98 70 - 110 mg/dL 09/14/2023 5:41 PM EDT [facility] Comment: In the event of poor peripheral blood flow, venous or arterial blood should be used due to the potential of erroneous results. Protocols Followed [employer]ating [employer] As[employer]er [id number] 09/14/2023 5:41 PM EDT [facility] Blood WHOLE BLOOD / Unknown 09/14/2023 5:40 PM EDT 09/14/2023 5:41 PM EDT Narrative [facility] - 09/14/2023 5:41 PM EDT Rotating Field Assembler ID is - [id number] Cornelius Mccarty MD POINT OF CARE TEST ORDERABLES F inal Result Performing Organization Address City/[facility]/ZIP Co de Phone Number [facility] [address] [phone] * (ABNORMAL) Sodium (09/14/2023 4:47 PM EDT) Sodium 125(L) 136 - 146 meq/L 09/14/2023 5:23 PM EDT [facility] Blood Venipuncture / Unknown 09/14/2023 4:47 PM EDT 09/14/2023 5:06 PM EDT us Flaco Alfaro MD LAB BLOOD ORDERABLES Final Re sult Performing Organization Address [facility]/ZIP Co de Phone Number [facility] [address] [phone] * (ABNORMAL) Sodium (09/14/2023 1:25 PM EDT) Sodium 126(L) 136 - 146 meq/L 09/14/2023 2:06 PM EDT [facility] Blood Venipuncture / Unknown 09/14/2023 1:25 PM EDT 09/14/2023 1:49 PM EDT us Flaco Alfaro MD LAB BLOOD ORDERABLES Final Re sult Performing Organization Address [facility] de Phone Number [facility] [address] [phone] * Glucose, Nova Meter (09/14/2023 11:36 AM EDT) POC-GLUCOSE 103 70 - 110 mg/dL 09/14/2023 11:37 AM EDT [facility] Comment: In the event of poor peripheral blood flow, venous or arterial blood should be used due to the potential of erroneous results. Protocols Followed Rotating [employer] As[employer]er [id number] 09/14/2023 11:37 AM EDT [facility] Blood WHOLE BLOOD / Unknown 09/14/2023 11:36 AM EDT 09/14/2023 11:37 AM EDT Narrative [facility] - 09/14/2023 11:37 AM EDT Rotating Field Assembler ID is - [id number] us Cornelius Mccarty MD POINT OF CARE TEST ORDERABLES F inal Result [facility] [address] [place] [address], [place] [phone] * CT ABDOMEN/PELVIS WITHOUT IV CONTRAST Standard Protocol (09/14/2023 9:35 AM EDT) Anatomical Region Laterality Modality Abdomen, Pelvis Computed Tomogra phy (CT) 09/14/2023 10:5 1 AM EDT Impressions 09/14/2023 11:27 AM EDT Pleural effusions and bibasilar consolidation. Follow up to resolution recommended. Extensive anasarca but particularly in the pelvis. Mild ascites of uncertain etiology. Mild enlargement and heterogeneity in the lower right psoas muscle consistent with intramuscular hematoma. Images reviewed, interpreted, and dictated by Jairo Acosta MD Narrative 09/14/2023 11:[address] SCAN OF THE ABDOMEN AND PELVIS WITHOUT CONTRAST ? 09/14/2023 9:24 AM HISTORY: Epigastric pain COMPARISON: None. PROCEDURE: Axial images were obtained from the lung bases to the pubic symphysis by computed tomography. This study was performed with techniques to keep radiation doses as low as reasonably achievable, (ALARA). Individualized dose reduction techniques using automated exposure control or adjustment of mA and/or kV according to the patient size were employed. FINDINGS: ABDOMEN: There is a small right and moderate left pleural effusion. There is bibasilar consolidation. Post cholecystectomy. There is no hydronephrosis or nephrolithiasis. There is extensive anasarca. There is no significant free fluid or adenopathy. The solid organs are otherwise unremarkable. PELVIS: There is extensive anasarca. There is mild ascites. The urinary bladder is unremarkable. The appendix is normal. The right psoas muscle is mildly enlarged. There is increased density within the right psoas musculature consistent with intramuscular hematoma. Procedure Note Nilesh Acosta MD - 09/14/2023 CT SCAN OF THE ABDOMEN AND PELVIS WITHOUT CONTRAST 09/14/2023 9:24 AM HISTORY: Epigastric pain COMPARISON: None. PROCEDURE: Axial images were obtained from the lung bases to the pubic symphysis by computed tomography. This study was performed with techniques to keep radiation doses as low as reasonably achievable, (ALARA). Individualized dose reduction techniques using automated exposure control or adjustment of mA and/or kV according to the patient size were employed. FINDINGS: ABDOMEN: There is a small right and moderate left pleural effusion. There is bibasilar consolidation. Post cholecystectomy. There is no hydronephrosis or nephrolithiasis. There is extensive anasarca. There is no significant free fluid or adenopathy. The solid organs are otherwise unremarkable. PELVIS: There is extensive anasarca. There is mild ascites. The urinary bladder is unremarkable. The appendix is normal. The right psoas muscle is mildly enlarged. There is increased density within the right psoas musculature consistent with intramuscular hematoma. IMPRESSION: Pleural effusions and bibasilar consolidation. Follow up to resolution recommended. Extensive anasarca but particularly in the pelvis. Mild ascites of uncertain etiology. Mild enlargement and heterogeneity in the lower right psoas muscle consistent with intramuscular hematoma. Images reviewed, interpreted, and dictated by Jairo Acosta MD us Nathaniel Wakefield MD IMG CT ORDERABLES Final Result * Folate, Serum (09/14/2023 2:49 AM EDT) Folate 14.60 3.10 - 17.50 ng/mL 09/14/2023 4:05 AM EDT [facility] Blood Venipuncture / Unknown 09/14/2023 2:49 AM EDT 09/14/2023 2:57 AM EDT us Nathaniel Wakefield MD LAB BLOOD ORDERABLES Final Resul t [facility] [address] [phone] * Vitamin B12 (09/14/2023 2:49 AM EDT) Vitamin B12 560 193 - 986 pg/mL 09/14/2023 4:05 AM EDT [facility] Blood Venipuncture / Unknown 09/14/2023 2:49 AM EDT 09/14/2023 2:57 AM EDT us Nathaniel Wakefield MD LAB BLOOD ORDERABLES Final Resul t [facility] [address] [place] [id number] [phone] * (ABNORMAL) Comprehensive metabolic panel (09/14/2023 2:49 AM EDT) Sodium 124(L) 136 - 146 meq/L 09/14/2023 4:05 AM EDT [facility] Potassium 4.1 3.5 - 5.1 meq/L 09/14/2023 4:05 AM EDT [facility] Chloride 94(L) 102 - 112 meq/L 09/14/2023 4:05 AM EDT [facility] CO2 24 21 - 32 meq/L 09/14/2023 4:05 AM EDT [facility] Calcium 8.0(L) 8.4 - 10.1 mg/dL 09/14/2023 4:05 AM EDT [facility] Glucose 103 74 - 106 mg/dL 09/14/2023 4:05 AM EDT [facility] BUN 22 7 - 22 mg/dL 09/14/2023 4:05 AM EDT [facility] Creatinine 0.80 0.55 - 1.02 mg/dL 09/14/2023 4:05 AM EDT [facility] BUN/Creatinine 28(H) 8 - 20 09/14/2023 4:05 AM EDT [facility] Albumin 2.3(L) 3.4 - 5.0 g/dL 09/14/2023 4:05 AM EDT [facility] Alkaline Phosphatase 36 27 - 136 U/L 09/14/2023 4:05 AM EDT [facility] ALT 213(H) 13 - 56 U/L 09/14/2023 4:05 AM EDT [facility] AST 308(H) 5 - 37 U/L 09/14/2023 4:05 AM EDT [facility] Total Bilirubin 0.9 0.2 - 1.2 mg/dL 09/14/2023 4:05 AM EDT [facility] Protein, Total 4.5(L) 6.4 - 8.2 gm/dL 09/14/2023 4:05 AM EDT [facility] Anion Gap 10 9 - 20 09/14/2023 4:05 AM EDT [facility] A/G Ratio 1.0(L) 1.1 - 2.5 09/14/2023 4:05 AM EDT [facility] Globulin 2.2 1.5 - 4.5 g/dL 09/14/2023 4:05 AM EDT [facility] Osmolality Calc 253.2 4:05 AM EDT [facility] eGFR (mL/min/1.73m2) >60 >=60 mL/min/1.7 3m2 09/14/2023 4:05 AM EDT [facility] Comment:ESTIMATED GFR IS NOT ACCURATE CREATININE CLEARANCE IN PREDICTING GLOMERULAR FILTRATION RATE. ESTIMATED GFR IS NOT APPLICABLE FOR DIALYSIS PATIENTS. Blood Venipuncture / Unknown 09/14/2023 2:49 AM EDT 09/14/2023 2:57 AM EDT us Sim Cole MD LAB BLOOD ORDERABLES Final Re sult [facility] [address] [phone] * (ABNORMAL) Manual Differential (09/14/2023 2:48 AM EDT) Total Counted 100 09/14/2023 4:48 AM EDT [facility] % Neutros (manual) 84(H) 50 - 65 % 09/14/2023 4:48 AM EDT [facility] % Lymphs (manual) 12(L) 24 - 44 % 09/14/2023 4:48 AM EDT [facility] % Monos (manual) 4 4 - 5 % 09/14/2023 4:48 AM EDT [facility] Platelet Estimate Adequate Adequate 09/14/2023 4:48 AM EDT [facility] ANC# 11.26 K/??L 09/14/2023 4:48 AM EDT [facility] Blood Venipuncture / Unknown 09/14/2023 2:48 AM EDT 09/14/2023 2:57 AM EDT us Sim Cole MD LAB BLOOD ORDERABLES Final Re sult Performing Organization Address [facility]/ZIP Co de Phone Number [facility] [address] [phone] * Lactic acid (SJ) (09/14/2023 2:48 AM EDT) Lactic Acid Level (mmol/L) 0.9 0.4 - 2.0 mmol/L 09/14/2023 3:34 AM EDT [facility] Blood Venipuncture / Unknown 09/14/2023 2:48 AM EDT 09/14/2023 2:57 AM EDT Sim Cole MD LAB BLOOD ORDERABLES Final Re sult Performing Organization Address [facility] Co de Phone Number [facility] LABORATORY [address] [phone] * (ABNORMAL) CBC w Manual Diff (SJ-BKR) (09/14/2023 2:48 AM EDT) WBC 13.4(H) 4.0 - 10.0 K/??L 09/14/2023 3:08 AM EDT [facility] RBC 2.69(L) 3.93 - 5.22 M/??L 09/14/2023 3:08 AM EDT [facility] Hemoglobin 7.9(L) 11.2 - 15.7 GM/DL 09/14/2023 3:08 AM EDT [facility] Hematocrit 22.4(L) 34.1 - 44.9 % 09/14/2023 3:08 AM EDT [facility] MCV 83 79 - 95 fL 09/14/2023 3:08 AM EDT [facility] MCH 29.4 25.6 - 32.2 pg 09/14/2023 3:08 AM EDT [facility] MCHC 35.3 32.2 - 35.5 GM/DL 09/14/2023 3:08 AM EDT [facility] RDW 12.8 11.7 - 14.4 % 09/14/2023 3:08 AM EDT [facility] Platelets 180 140 - 375 K/CU MM 09/14/2023 3:08 AM EDT [facility] MPV 11.0 9.4 - 12.3 fL 09/14/2023 3:08 AM EDT [facility] Blood Venipuncture / Unknown 09/14/2023 2:48 AM EDT 09/14/2023 2:57 AM EDT Narrative [facility] - 09/14/2023 3:08 AM EDT Manual differentials can only be ordered once in a 24 hour time period. Please order CBC with Auto Diff if needed. Note: reference ranges were changed on 07/13/2023. us Sim Cole MD LAB BLOOD ORDERABLES Final Re sult [facility] [address] [phone] * (ABNORMAL) Sodium (09/13/2023 11:14 PM EDT) Pathologist [facility] Sodium 125(L) 136 - 146 meq/L 09/13/2023 11:43 PM EDT [facility] Blood Venipuncture / Unknown 09/13/2023 11:14 PM EDT 09/13/2023 11:20 PM EDT us Flaco Alfaro MD LAB BLOOD ORDERABLES Final Re sult [facility] [address] [phone] * Glucose, Nova Meter (09/13/2023 5:02 PM EDT) Pathologist [facility] POC-GLUCOSE 108 70 - 110 mg/dL 09/13/2023 5:03 PM EDT [facility] Comment: In the event of poor peripheral blood flow, venous or arterial blood should be used due to the potential of erroneous results. Protocols Followed [employer]ating [employer]er [id number] 09/13/2023 5:03 PM EDT [facility] Blood WHOLE BLOOD / Unknown 09/13/2023 5:02 PM EDT 09/13/2023 5:03 PM EDT Narrative [facility] - 09/13/2023 5:03 PM EDT Rotating Field Assembler ID is - [id number] us Cornelius Mccarty MD POINT OF CARE TEST ORDERABLES F inal Result Performing Organization Address [facility] Co de Phone Number [facility] [address] [phone] * (ABNORMAL) Sodium (09/13/2023 12:34 PM EDT) Sodium 125(L) 136 - 146 meq/L 09/13/2023 9:37 PM EDT [facility] Blood Venipuncture / Unknown 09/13/2023 12:34 PM EDT 09/13/2023 1:11 PM EDT us Flaco Alfaro MD LAB BLOOD ORDERABLES Final Re sult Performing Organization Address [facility] Co de Phone Number [facility] [address] [phone] * Osmolality, serum (09/13/2023 12:34 PM EDT) Osmolality Serum 261 mOsm/kg 09/13/2023 1:42 PM EDT [facility] Blood Venipuncture / Unknown 09/13/2023 12:34 PM EDT 09/13/2023 1:11 PM EDT us Flaco Alfaro MD LAB BLOOD ORDERABLES Final Re sult Performing Organization Address [facility] Co de Phone Number [facility] [address] [phone] * (ABNORMAL) Basic Metabolic Panel (09/13/2023 12:34 PM EDT) Sodium 124(L) 136 - 146 meq/L 09/13/2023 1:32 PM EDT [facility] Potassium 4.2 3.5 - 5.1 meq/L 09/13/2023 1:32 PM EDT [facility] Chloride 91(L) 102 - 112 meq/L 09/13/2023 1:32 PM EDT [facility] CO2 28 21 - 32 meq/L 09/13/2023 1:32 PM EDT [facility] Anion Gap 9 9 - 20 09/13/2023 1:32 PM EDT [facility] BUN 24(H) 7 - 22 mg/dL 09/13/2023 1:32 PM EDT [facility] Creatinine 0.94 0.55 - 1.02 mg/dL 09/13/2023 1:32 PM EDT [facility] BUN/Creatinine 26(H) 8 - 20 09/13/2023 1:32 PM EDT [facility] Glucose 98 74 - 106 mg/dL 09/13/2023 1:32 PM EDT [facility] Calcium 8.4 8.4 - 10.1 mg/dL 09/13/2023 1:32 PM EDT [facility] Osmolality Calc 253.7 1:32 PM EDT [facility] eGFR (mL/min/1.73m2) >60 >=60 mL/min/1.7 3m2 09/13/2023 1:32 PM EDT [facility] Comment:eGFR of <60 suggests chronic kidney disease if found over a 3 month period of time. eGFR <15 indicates renal failure. Blood Venipuncture / Unknown 09/13/2023 12:34 PM EDT 09/13/2023 1:11 PM EDT us Flaco Alfaro MD LAB BLOOD ORDERABLES Final Re sult [facility] [address] [phone] * Glucose, Nova Meter (09/13/2023 11:44 AM EDT) POC-GLUCOSE 94 70 - 110 mg/dL 09/13/2023 11:46 AM EDT [facility] Comment: In the event of poor peripheral blood flow, venous or arterial blood should be used due to the potential of erroneous results. Notified Nurse RBV Rotating [employer] Assembler [id number] 09/13/2023 11:46 AM EDT [facility] Blood WHOLE BLOOD / Unknown 09/13/2023 11:44 AM EDT 09/13/2023 11:46 AM EDT Narrative [facility] - 09/13/2023 11:46 AM EDT Rotating Field Assembler ID is - [id number] Cornelius Mccarty MD POINT OF CARE TEST ORDERABLES F inal Result [facility] [address] [phone] * CT brain without IV contrast (09/13/2023 11:02 AM EDT) Anatomical Region Laterality Modality Brain, Head Computed Tomogra phy (CT) 09/13/2023 11:2 6 AM EDT Impressions 09/13/2023 11:27 AM EDT No acute intracranial process. Images reviewed, interpreted, and dictated by Jairo Acosta MD Narrative 09/13/2023 11:[address] ? 09/13/2023 10:47 AM HISTORY: Acute headache. COMPARISON: None. TECHNIQUE: Multiple axial CT images were performed from the foramen magnum to the vertex. This study was performed with techniques to keep radiation doses as low as reasonably achievable, (ALARA). Individualized dose reduction techniques using automated exposure control or adjustment of mA and/or kV according to the patient size were employed. FINDINGS: The ventricles are normal in size. There is no evidence of hemorrhage. No masses are identified. No extra-axial fluid is seen. The sinuses demonstrate right sphenoid opacification. Procedure Note Nilesh Acosta MD - 09/13/[address] 09/13/2023 10:47 AM HISTORY: Acute headache. COMPARISON: None. TECHNIQUE: Multiple axial CT images were performed from the foramen magnum to the vertex. This study was performed with techniques to keep radiation doses as low as reasonably achievable, (ALARA). Individualized dose reduction techniques using automated exposure control or adjustment of mA and/or kV according to the patient size were employed. FINDINGS: The ventricles are normal in size. There is no evidence of hemorrhage. No masses are identified. No extra-axial fluid is seen. The sinuses demonstrate right sphenoid opacification. IMPRESSION: No acute intracranial process. Images reviewed, interpreted, and dictated by Jairo Acosta MD us Cornelius Mccarty MD IMG CT ORDERABLES Final Result * US DOPPLER VENOUS LEGS BILATERAL (09/13/2023 8:00 AM EDT) Anatomical Region Laterality Modality Lower Extremity Vascular Ultraso und 09/13/2023 7:52 AM EDT Narrative 09/13/2023 10:46 AM EDT Vascular Lower Extremities DVT Study Procedure Demographics Patient Name ?SEAN BAERLIS ? Age ? 73 Patient Number ?[id number] ? Gender ?Female ? Race ?Unknown ? Ethnicity Corporate ID ?[id number] ? Height ?63 Date of ? 1950 ? Weight ?107 Accession Number ??[id number] ? BSA ? 1.48 m^2 Room Number ? 658 ?BMI ? 18.95 kg/m^2 Referring ? CORNELIUS MCCARTY MD ?? Interpreting ?BENTON DALTON Physician ?Physician ? Metal Molder ? Monse Earlywine ? RVT Procedure Type of Study: Veins: Venous Duplex, Venous Duplex Legs, Lower Extremities DVT Study, US DOPPLER VENOUS LEGS BILATERAL. Impressions Summary INDICATION: BILATERAL LE SWELLING (R22.43) ################################ RIGHT: ##Abnormal venous duplex study, deep vein thrombosis identified in the peroneal vein and soleal vein .## Thrombus appears acute in age. No evidence of a superficial venous thrombosis. LEFT: No evidence of deep venous thrombosis (DVT) or superficial venous thrombosis. ################################ Patient Status:Inpatient . Study Location:Portable. Technical Quality:Technically difficult study due to patient's positioning. Velocities are measured in cm/s ; Diameters are measured in mm Right Lower Extremities DVT Study Measurements Right 2D Measurements + + + + + !Location ? !Visualized !Compressibility !Thrombosis ! + + + + + !GSV Thigh ?!Yes ?!Yes ? !None ? ! + + + + + !Common Femoral ? !Yes ?!Yes ? !None ? ! + + + + + !Deep Femoral ? !Yes ?!Yes ? !None ? ! + + + + + !Prox Femoral ? !Yes ?!Yes ? !None ? ! + + + + + !Mid Femoral ?!Yes ?!Yes ? !None ? ! + + + + + !Dist Femoral ? !Yes ?!Yes ? !None ? ! + + + + + !Popliteal ?!Yes ?!Yes ? !None ? ! + + + + + !PTV ?!Yes ?!Yes ? !None ? ! + + + + + !Peroneal ? !Yes ?!No ?!Yes ?! + + + + + Right Doppler Measurements + + +------+ + !Location ? !Signal ?!Reflux!Reflux (sec) ?! + + +------+ + !Common Femoral ? !Spontaneous Phasic ?! ?! ?! + + +------+ + !Prox Femoral ? !Spontaneous Phasic ?! ?! ?! + + +------+ + !Deep Femoral ? !Spontaneous Phasic ?! ?! ?! + + +------+ + !Popliteal ?!Spontaneous Phasic ?! ?! ?! + + +------+ + Left Lower Extremities DVT Study Measurements Left 2D Measurements + + + + + !Location ? !Visualized !Compressibility !Thrombosis ! + + + + + !GSV Thigh ?!Yes ?!Yes ? !None ? ! + + + + + !Common Femoral ? !Yes ?!Yes ? !None ? ! + + + + + !Deep Femoral ? !Yes ?!Yes ? !None ? ! + + + + + !Prox Femoral ? !Yes ?!Yes ? !None ? ! + + + + + !Mid Femoral ?!Yes ?!Yes ? !None ? ! + + + + + !Dist Femoral ? !Yes ?!Yes ? !None ? ! + + + + + !Popliteal ?!Yes ?!Yes ? !None ? ! + + + + + !PTV ?!Yes ?!Yes ? !None ? ! + + + + + !Peroneal ? !Yes ?!Yes ? !None ? ! + + + + + Left Doppler Measurements + + +------+ + !Location ? !Signal ?!Reflux!Reflux (sec) ?! + + +------+ + !Common Femoral ? !Spontaneous Phasic ?! ?! ?! + + +------+ + !Prox Femoral ? !Spontaneous Phasic ?! ?! ?! + + +------+ + !Deep Femoral ? !Spontaneous Phasic ?! ?! ?! + + +------+ + !Popliteal ?!Spontaneous Phasic ?! ?! ?! + + +------+ + Findings Right Findings Thrombus identified in the peroneal vein (deep venous thrombosis) . Thrombus identified in the soleal vein (deep venous thrombosis) . Thrombus appears to be acute in age. No evidence of a superficial venous thrombosis. Normal response to augmentation in the supine position. Left Findings No evidence of a deep venous thrombosis (DVT). No evidence of a superficial venous thrombosis. Normal response to augmentation in the supine position. Signature Procedure Note Benton Dalton MD - 09/13/2023 Vascular Lower Extremities DVT Study Procedure Demographics Patient Name SEAN REILLY Age 73 Patient Number [id number] Gender Female Race Unknown Ethnicity Corporate ID [id number] Height 63 Date of 1950 Weight 107 Accession Number [id number] BSA 1.48 m^2 Room Number 658 BMI 18.95 kg/m^2 Referring CORNELIUS MCCARTY MD Interpreting KOLE Physician Physician Metal Molder Monse Gonsalez T Procedure Type of Study: Veins: Venous Duplex, Venous Duplex Legs, Lower Extremities DVT Study,US DOPPLER VENOUS LEGS BILATERAL. Impressions Summary INDICATION: BILATERAL LE SWELLING (R22.43) ################################ RIGHT: ##Abnormal venous duplex study, deep vein thrombosis identified in the peroneal vein and soleal vein .## Thrombus appears acute in age. No evidence of a superficial venous thrombosis. LEFT: No evidence of deep venous thrombosis (DVT) or superficial venous thrombosis. ################################ Patient Status:Inpatient . Study Location:Portable. Technical Quality:Technically difficult study due to patient'spositioning. Velocities are measured in cm/s ; Diameters are measured in mm Right Lower Extremities DVT Study Measurements Right 2D Measurements + + + + + !Location !Visualized !Compressibility !Thrombosis! + + + + + !GSV Thigh !Yes !Yes !None! + + + + + !Common Femoral !Yes !Yes !None! + + + + + !Deep Femoral !Yes !Yes !None! + + + + + !Prox Femoral !Yes !Yes !None! + + + + + !Mid Femoral !Yes !Yes !None! + + + + + !Dist Femoral !Yes !Yes !None! + + + + + !Popliteal !Yes !Yes !None! + + + + + !PTV !Yes !Yes !None! + + + + + !Peroneal !Yes !No !Yes! + + + + + Right Doppler Measurements + + +------+ + !Location !Signal !Reflux!Reflux (sec)! + + +------+ + !Common Femoral !Spontaneous Phasic ! !! + + +------+ + !Prox Femoral !Spontaneous Phasic ! !! + + +------+ + !Deep Femoral !Spontaneous Phasic ! !! + + +------+ + !Popliteal !Spontaneous Phasic ! !! + + +------+ + Left Lower Extremities DVT Study Measurements Left 2D Measurements + + + + + !Location !Visualized !Compressibility !Thrombosis! + + + + + !GSV Thigh !Yes !Yes !None! + + + + + !Common Femoral !Yes !Yes !None! + + + + + !Deep Femoral !Yes !Yes !None! + + + + + !Prox Femoral !Yes !Yes !None! + + + + + !Mid Femoral !Yes !Yes !None! + + + + + !Dist Femoral !Yes !Yes !None! + + + + + !Popliteal !Yes !Yes !None! + + + + + !PTV !Yes !Yes !None! + + + + + !Peroneal !Yes !Yes !None! + + + + + Left Doppler Measurements + + +------+ + !Location !Signal !Reflux!Reflux (sec)! + + +------+ + !Common Femoral !Spontaneous Phasic ! !! + + +------+ + !Prox Femoral !Spontaneous Phasic ! !! + + +------+ + !Deep Femoral !Spontaneous Phasic ! !! + + +------+ + !Popliteal !Spontaneous Phasic ! !! + + +------+ + Findings Right Findings Thrombus identified in the peroneal vein (deep venous thrombosis) . Thrombus identified in the soleal vein (deep venous thrombosis) . Thrombus appears to be acute in age. No evidence of a superficial venous thrombosis. Normal response to augmentation in the supine position. Left Findings No evidence of a deep venous thrombosis (DVT). No evidence of a superficial venous thrombosis. Normal response to augmentation in the supine position. Signature Cornelius Mccarty MD CV VASCULAR ORDERABLES Final Re sult * Procalcitonin (09/13/2023 1:48 AM EDT) [facility] Procalcitonin <0.14 <=0.50 ng/mL 09/13/2023 2:51 AM EDT [facility] Comment: Sepsis comment <0.5 Antibiotics Discouraged >0.5 Antibiotics Encouraged *Assessing Sepsis Risk and Severity* >2.0 ng/mL High Risk for Progression to severe sepsis and/or septic shock 0.5-2.0 ng/mL Sepsis should be considered <0.5 ng/mL Low Risk for Progression to Severe and/or septic shock Lower Respiratory Tract Infection (LRT) <0.25 Antibiotics Discouraged >0.25 Antibiotics Encouraged *Procalcitonin results should be interpreted carefully in settings that are known to falsely elevate results such as renal failure, trauma, localized infections and rice. Blood Venipuncture / Unknown 09/13/2023 1:48 AM EDT 09/13/2023 2:14 AM EDT Cornelius Mccarty MD LAB BLOOD ORDERABLES Final Resu lt Performing Organization Address [facility] de Phone Number [facility] [address] [phone] * Lactic Acid with reflex (SJ) (09/13/2023 1:48 AM EDT) Lactic Acid Level (mmol/L) 1.0 0.4 - 2.0 mmol/L 09/13/2023 2:51 AM EDT [facility] Comment:If a Lactic Acid Lev el with Reflex if Indicated result is greater than 2.0, a Lactic Acid Level will be ordered to be collected 2 hours after the original collection time. Blood Venipuncture / Unknown 09/13/2023 1:48 AM EDT 09/13/2023 2:14 AM EDT Cornelius Mccarty MD LAB BLOOD ORDERABLES Final Resu Performing Organization Address [facility] Phone Number [facility] [address] [phone] * Ammonia (09/13/2023 1:48 AM EDT) Ammonia 16 11 - 32 ??mol/L 09/13/2023 2:38 AM EDT [facility] Comment:[email or web address] has become aware of sulfasalazine and sulfapyridine drug interference in the assays ALT, AST, T4, CKMB, glucose, and ammonia. The probability of misinterpretation of results for the assays is remote and would be limited to scenarios where a patient has taken the drug and had a blood sample drawn before clearance of the drug to a level that does not interfere with laboratory testing. Venipuncture should occur prior to administration of the drug. Blood Venipuncture / Unknown 09/13/2023 1:48 AM EDT 09/13/2023 2:14 AM EDT us Cornelius Mccarty MD LAB BLOOD ORDERABLES Final Resu lt [facility] [address] [phone] * (ABNORMAL) Basic Metabolic Panel (09/13/2023 1:48 AM EDT) Sodium 122(L) 136 - 146 meq/L 09/13/2023 2:38 AM EDT [facility] Potassium 4.4 3.5 - 5.1 meq/L 09/13/2023 2:38 AM EDT [facility] Chloride 90(L) 102 - 112 meq/L 09/13/2023 2:38 AM EDT [facility] CO2 26 21 - 32 meq/L 09/13/2023 2:38 AM EDT [facility] Anion Gap 10 9 - 20 09/13/2023 2:38 AM EDT [facility] BUN 26(H) 7 - 22 mg/dL 09/13/2023 2:38 AM EDT [facility] Creatinine 0.87 0.55 - 1.02 mg/dL 09/13/2023 2:38 AM EDT [facility] BUN/Creatinine 30(H) 8 - 20 09/13/2023 2:38 AM EDT [facility] Glucose 128(H) 74 - 106 mg/dL 09/13/2023 2:38 AM EDT [facility] Calcium 8.0(L) 8.4 - 10.1 mg/dL 09/13/2023 2:38 AM EDT [facility] Osmolality Calc 252.3 2:38 AM EDT [facility] eGFR (mL/min/1.73m2) >60 >=60 mL/min/1.7 3m2 09/13/2023 2:38 AM EDT [facility] Comment:eGFR of <60 suggests chronic kidney disease if found over a 3 month period of time. eGFR <15 indicates renal failure. Blood Venipuncture / Unknown 09/13/2023 1:48 AM EDT 09/13/2023 2:14 AM EDT us Cornelius Mccarty MD LAB BLOOD ORDERABLES Final Resu lt [facility] [address] [phone] * (ABNORMAL) CBC - Hemogram (SJ-BKR) (09/13/2023 1:48 AM EDT) WBC 15.2(H) 4.0 - 10.0 K/??L 09/13/2023 2:16 AM EDT [facility] RBC 2.99(L) 3.93 - 5.22 M/??L 09/13/2023 2:16 AM EDT [facility] Hemoglobin 9.1(L) 11.2 - 15.7 GM/DL 09/13/2023 2:16 AM EDT [facility] Hematocrit 24.6(L) 34.1 - 44.9 % 09/13/2023 2:16 AM EDT [facility] MCV 82 79 - 95 fL 09/13/2023 2:16 AM EDT [facility] MCH 30.4 25.6 - 32.2 pg 09/13/2023 2:16 AM EDT [facility] MCHC 37.0(H) 32.2 - 35.5 GM/DL 09/13/2023 2:16 AM EDT [facility] RDW 12.5 11.7 - 14.4 % 09/13/2023 2:16 AM EDT [facility] Platelets 205 140 - 375 K/CU MM 09/13/2023 2:16 AM EDT [facility] MPV 11.6 9.4 - 12.3 fL 09/13/2023 2:16 AM EDT [facility] Blood Venipuncture / Unknown 09/13/2023 1:48 AM EDT 09/13/2023 2:14 AM EDT Narrative [facility] - 09/13/2023 2:16 AM EDT Note: reference ranges were changed on 07/13/2023. us Cornelius Mccarty MD LAB BLOOD ORDERABLES Final Resu lt [facility] [address] [phone] * Urine Culture (09/12/2023 10:10 PM EDT) Result No growth 09/15/2023 8:58 AM EDT [facility] Urine URINE SPECIMEN COLLECTION, CLEAN CATCH / Unknown 09/12/2023 10:10 PM EDT 09/13/2023 12:14 PM EDT us Sim Cole MD MICROBIOLOGY - GENERAL ORDERA BLES Final Result Performing Organization Address [facility] Co de Phone Number [facility] [address] [phone] * Sodium, random urine (09/12/2023 10:10 PM EDT) Sodium Urine <15 meq/L 09/13/2023 12:50 PM EDT [facility] Urine 09/12/2023 10:1 0 PM EDT 09/13/2023 12:14 PM EDT Narrative [facility] - 09/13/2023 12:50 PM EDT Reference Range: No Normals us Flaco Alfaro MD URINE ORDERABLES Final Result Performing Organization Address [facility]/ZIP Co de Phone Number [facility] [address] [phone] * Osmolality, urine (09/12/2023 10:10 PM EDT) Osmolality, Ur 892 50 - 1,400 mOsm/kg 09/13/2023 12:47 PM EDT [facility] Urine 09/12/2023 10:1 0 PM EDT 09/13/2023 12:14 PM EDT us Flaco Alfaro MD URINE ORDERABLES Final Result Performing Organization Address City/State/[facility] Co de Phone Number [facility] [address] [phone] * (ABNORMAL) Urine Drug Screen (09/12/2023 10:10 PM EDT) Amphetamine Urine Negative Negative 024 10:58 PM EDT [facility] Barbiturate Screen Negative Negative 2023 10:58 PM EDT [facility] Benzodiazepine Screen Negative Negative 10:58 PM EDT [facility] Cocaine (Metab.) Screen Negative Negative 09/12/2023 10:58 PM EDT [facility] Opiate Screen Positive(A ) Negative 09/12/2023 10:58 PM EDT [facility] Phencyclidine Screen Negative Negative 08/14 10:58 PM EDT [facility] Tricyclic Screen Negative Negative 09/12/19 24 10:58 PM EDT [facility] Tetrahydrocannabinol Negative Negative 08/14 10:58 PM EDT [facility] Creatinine, Ur 165.0 mg/dL 09/12/2023 10:58 PM EDT [facility] pH, UA 5.5(L) 6.0 - 8.0 09/12/2023 10:58 PM EDT [facility] Urine 09/12/2023 10:1 0 PM EDT 09/12/2023 10:14 PM EDT Narrative [facility] - 09/12/2023 10:58 PM EDT Clinical consideration and professional judgement should be applied to any [id number] test result, particularly when preliminary positive results are used. Positive results should be confirmed if used for clinical or legal purposes. Cutoff Values: UDS Amphetamines & UDS TCA = 1000 ng/mL UDS Barbiturates & UDS Benzodiazepines = 200 ng/mL UDS Cocaine & UDS Opiates = 300 ng/mL UDS PCP = 25 ng/mL UDS THC = 50 ng/mL us Cornelius Mccarty MD URINE ORDERABLES Final Result [facility] [address] [phone] * (ABNORMAL) Urinalysis w/Microscopic (09/12/2023 10:10 PM EDT) Color, UA Yellow 09/12/2023 10:26 PM EDT [facility] Clarity, UA Turbid(A) Clear 09/12/2023 10:26 PM EDT [facility] Specific [place], UA 1.041(H) 1.005 - 1.030 09/12/2023 10:26 PM EDT [facility] pH, UA 6.0 6.0 - 8.0 09/12/2023 10:26 PM EDT [facility] Leukocytes, UA Negative Negative 09/12/2023 10:26 PM EDT [facility] Nitrite, UA Negative Negative 09/12/2023 10:26 PM EDT [facility] Protein, UA 1+(A) Negative 09/12/2023 10:26 PM EDT [facility] Glucose, UA Normal Normal 09/12/2023 10:26 PM EDT [facility] Ketones, UA Negative Negative 09/12/2023 10:26 PM EDT [facility] Urobilinogen, UA Normal Normal 09/12/2023 10:26 PM EDT [facility] Bilirubin, UA Negative Negative 09/12/2023 10:26 PM EDT [facility] Blood, UA 3+(A) Negative 09/12/2023 10:26 PM EDT [facility] RBC, UA 0-2(A) None Seen /HPF 09/12/2023 10:26 PM EDT [facility] WBC, UA 11-20(A) None Seen /HPF 09/12/2023 10:26 PM EDT [facility] Bacteria, UA 1+(A) None Seen, Trace 09/12/2023 10:26 PM EDT [facility] Mucus 1+(A) None Seen 09/12/2023 10:26 PM EDT [facility] SQUAMOUS EPITHELIAL 3-5(A) None Seen /HPF 09/12/2023 10:26 PM EDT [facility] Specimen Source Urine, Voided 09/12/2023 10:26 PM EDT [facility] Urine URINE / Unknown 09/12/2023 1 0:10 PM EDT 09/12/2023 10:14 PM EDT Cornelius Mccarty MD URINE ORDERABLES Final Result [facility] [address] [phone] * XR pelvis 1 or 2 views (09/12/2023 8:46 PM EDT) Anatomical Region Laterality Modality Pelvis X-Ray 09/13/2023 8:01 AM EDT Impressions 09/13/2023 9:11 AM EDT No acute cardiopulmonary process. PELVIS, ONE VIEW HISTORY: Hematoma of the right hip, arthritis. COMPARISON: None. FINDINGS: ??A single AP view of the pelvis exam demonstrates no acute fracture or dislocation. The joint spaces appear unremarkable. No soft tissue abnormality is seen. IMPRESSION: No acute bony abnormality. Images reviewed, interpreted, and dictated by Dr. Jose Barnes. Transcribed by Jane Stephens PA-C. Narrative 09/13/2023 9:11 AM EDT PORTABLE CHEST. ?09/12/2023 6:19 PM HISTORY: Shortness of breath. COMPARISON: None. FINDINGS: The cardiac silhouette is normal in size. The mediastinum is unremarkable. The lungs are clear. There is no pneumothorax. Procedure Note Jose Barnes MD - 09/13/2023 PORTABLE CHEST. 09/12/2023 6:19 PM HISTORY: Shortness of breath. COMPARISON: None. FINDINGS: The cardiac silhouette is normal in size. The mediastinum is unremarkable. The lungs are clear. There is no pneumothorax. IMPRESSION: No acute cardiopulmonary process. PELVIS, ONE VIEW HISTORY: Hematoma of the right hip, arthritis. COMPARISON: None. FINDINGS: A single AP view of the pelvis exam demonstrates no acute fracture or dislocation. The joint spaces appear unremarkable. No soft tissue abnormality is seen. IMPRESSION: No acute bony abnormality. Images reviewed, interpreted, and dictated by Dr. Jose Barnes. Transcribed by Jane Stephens PA-C. 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 PELVIS, ONE VIEW HISTORY: Hematoma of the right hip, arthritis. COMPARISON: None. FINDINGS: ??A single AP view of the pelvis exam demonstrates no acute fracture or dislocation. The joint spaces appear unremarkable. No soft tissue abnormality is seen. IMPRESSION: No acute bony abnormality. Images reviewed, interpreted, and dictated by Dr. Jose Barnes. Transcribed by Jane Stephens PA-C. Narrative 09/13/2023 9:11 AM EDT PORTABLE CHEST. ?09/12/2023 6:19 PM HISTORY: Shortness of breath. COMPARISON: None. FINDINGS: The cardiac silhouette is normal in size. The mediastinum is unremarkable. The lungs are clear. There is no pneumothorax. Procedure Note Jose Barnes MD - 09/13/2023 PORTABLE CHEST. 09/12/2023 6:19 PM HISTORY: Shortness of breath. COMPARISON: None. FINDINGS: The cardiac silhouette is normal in size. The mediastinum is unremarkable. The lungs are clear. There is no pneumothorax. IMPRESSION: No acute cardiopulmonary process. PELVIS, ONE VIEW HISTORY: Hematoma of the right hip, arthritis. COMPARISON: None. FINDINGS: A single AP view of the pelvis exam demonstrates no acute fracture or dislocation. The joint spaces appear unremarkable. No soft tissue abnormality is seen. IMPRESSION: No acute bony abnormality. Images reviewed, interpreted, and dictated by Dr. Jose Barnes. Transcribed by Jane Stephens PA-C. Cornelius Mccarty MD IMG DIAGNOSTIC IMAGING ORDERABL ES Final Result * (ABNORMAL) Blood Gas, Arterial (09/12/2023 6:25 PM EDT) pH, Arterial 7.51(H) 7.35 - 7.45 09/12/2023 6:29 PM EDT [facility] pCO2, Arterial 34(L) 35 - 45 mm Hg 09/12/2023 6:29 PM EDT [facility] pO2, Arterial 68(L) 80 - 100 mm Hg 09/12/2023 6:29 PM EDT [facility] HCO3, Arterial 27(H) 20 - 26 mmol/L 09/12/2023 6:29 PM EDT [facility] Base Excess, Arterial 4.1(H) -2.0 - 2.0 mmol/L 09/12/2023 6:29 PM EDT [facility] O2 Sat, Arterial 95.7 95.0 - 100.0 % 09/12/2023 6:29 PM EDT [facility] CTO2 ARTERIAL 11.9 mmol/L 09/12/2023 6:29 PM EDT [facility] THB ARTERIAL 9.0(L) 12.0 - 18.0 g/dL 09/12/2023 6:29 PM EDT [facility] COLLECTION SITE Right Radial 09/12/2023 6:29 PM EDT [facility] Arterial Puncture Yes 09/12/2023 6:29 PM EDT [facility] Blood Gas PT Temperature C 37.0 09/12/2023 6:29 PM EDT [facility] Marques's Test Acceptable 09/12/2023 6:29 PM EDT [facility] ABG Number of Draw Attempts 1 09/12/2023 6:29 PM EDT [facility] Comment room air 09/12/2023 6:29 PM EDT [facility] Performed by: Agapito Coronel DIRT BIKE MECHANIC 09/12/2023 6:29 PM EDT [facility] FIO2 09/12/2023 6:29 PM EDT [facility] Blood Gas Temperature Corrected Results No No 09/12/2023 6:29 PM EDT [facility] Blood, Arterial 09/12/2023 6 :25 PM EDT 09/12/2023 6:29 PM EDT us Cornelius Mccarty MD LAB BLOOD ORDERABLES Final Resu lt [facility] [address] [phone] * Blood Culture Forearm, Left (09/12/2023 6:14 PM EDT) Result No growth in 5 days 09/18/2023 1:01 AM EDT [facility] Blood STRUCTURE OF LEFT FOREARM / Unknown Venipuncture / Unknown 09/12/2023 6:14 PM EDT 09/12/2023 6:33 PM EDT Cornelius Mccarty MD MICROBIOLOGY - GENERAL ORDERABL ES Final Result Performing Organization Address [facility] de Phone Number [facility] [address] [phone] * Procalcitonin (09/12/2023 6:08 PM EDT) Procalcitonin <0.14 <=0.50 ng/mL 09/12/2023 7:10 PM EDT [facility] Comment: Sepsis comment <0.5 Antibiotics Discouraged >0.5 Antibiotics Encouraged *Assessing Sepsis Risk and Severity* >2.0 ng/mL High Risk for Progression to severe sepsis and/or septic shock 0.5-2.0 ng/mL Sepsis should be considered <0.5 ng/mL Low Risk for Progression to Severe and/or septic shock Lower Respiratory Tract Infection (LRT) <0.25 Antibiotics Discouraged >0.25 Antibiotics Encouraged *Procalcitonin results should be interpreted carefully in settings that are known to falsely elevate results such as renal failure, trauma, localized infections and rice. Blood Venipuncture / Unknown 09/12/2023 6:08 PM EDT 09/12/2023 6:33 PM EDT Cornelius Mccarty MD LAB BLOOD ORDERABLES Final Resu lt Performing Organization Address [facility] de Phone Number [facility] [address] [phone] * High Sensitivity Troponin I (09/12/2023 6:08 PM EDT) Troponin I High Sensitivity (pg/mL) 13.1 3 - 58.8 pg/mL 09/12/2023 6:59 PM EDT [facility] Comment: Troponin Result (pg/mL) ? *Interpretation 3-58.8 ? *Normal; less than 99th percentile of normal range >58.8 ?*Abnormal; greater than 99th percentile of normal range Biotin specimen concentration >300 ng/mL may lead to falsely depressed results for patient samples. ??Do not use this test for renal dysfunction patients (eGFR <60) unless it is confirmed that the patient is not taking Biotin. Blood Venipuncture / Unknown 09/12/2023 6:08 PM EDT 09/12/2023 6:33 PM EDT Cornelius Mccarty MD LAB BLOOD ORDERABLES Final Resu lt Performing Organization Address [facility] de Phone Number [facility] [address] [phone] * (ABNORMAL) PROBNP (09/12/2023 6:08 PM EDT) Pathologist [facility] ProBNP (pg/mL) 1,616(H) 0 - 125 pg/mL 09/12/2023 7:03 PM EDT [facility] Blood Venipuncture / Unknown 09/12/2023 6:08 PM EDT 09/12/2023 6:33 PM EDT Cornelius Mccarty MD LAB BLOOD ORDERABLES Final Resu lt Performing Organization Address [facility] Co de Phone Number [facility] [address] [phone] * (ABNORMAL) Comprehensive Metabolic Panel (09/12/2023 6:08 PM EDT) Pathologist [facility] Sodium 121(L) 136 - 146 meq/L 09/12/2023 7:03 PM EDT [facility] Potassium 4.4 3.5 - 5.1 meq/L 09/12/2023 7:03 PM EDT [facility] Chloride 88(L) 102 - 112 meq/L 09/12/2023 7:03 PM EDT [facility] CO2 27 21 - 32 meq/L 09/12/2023 7:03 PM EDT [facility] Calcium 8.2(L) 8.4 - 10.1 mg/dL 09/12/2023 7:03 PM EDT [facility] Glucose 162(H) 74 - 106 mg/dL 09/12/2023 7:03 PM EDT [facility] BUN 30(H) 7 - 22 mg/dL 09/12/2023 7:03 PM T [facility] Creatinine 1.03(H) 0.55 - 1.02 mg/dL 09/12/2023 7:03 PM T [facility] BUN/Creatinine 29(H) 8 - 20 09/12/2023 7:03 PM T [facility] Albumin 2.9(L) 3.4 - 5.0 g/dL 09/12/2023 7:03 PM T [facility] Alkaline Phosphatase 45 27 - 136 U/L 09/12/2023 7:03 PM T [facility] ALT 163(H) 13 - 56 U/L 09/12/2023 7:03 PM T [facility] AST 216(H) 5 - 37 U/L 09/12/2023 7:03 PM T [facility] Total Bilirubin 0.9 0.2 - 1.2 mg/dL 09/12/2023 7:03 PM T [facility] Protein, Total 5.2(L) 6.4 - 8.2 gm/dL 09/12/2023 7:03 PM T [facility] Anion Gap 10 9 - 20 09/12/2023 7:03 PM [facility] A/G Ratio 1.3 1.1 - 2.5 09/12/2023 7:03 PM T [facility] Globulin 2.3 1.5 - 4.5 g/dL 09/12/2023 7:03 PM EDT [facility] Osmolality Calc 253.8 7:03 PM EDT [facility] eGFR (mL/min/1.73m2) 58(L) >=60 mL/min/1.7 3m2 09/12/2023 7:03 PM EDT [facility] Comment:ESTIMATED GFR IS NOT ACCURATE CREATININE CLEARANCE IN PREDICTING GLOMERULAR FILTRATION RATE. ESTIMATED GFR IS NOT APPLICABLE FOR DIALYSIS PATIENTS. Blood Venipuncture / Unknown 09/12/2023 6:08 PM EDT 09/12/2023 6:33 PM EDT Cornelius Mccarty MD LAB BLOOD ORDERABLES Final Resu lt Performing Organization Address City/[facility]/ZIP Co de Phone Number [facility] [address] [phone] * CBC Scan (09/12/2023 6:07 PM EDT) Platelet Estimate Adequate Adequate 09/12/2023 7:19 PM EDT [facility] RBC Morphology Normal Normal 09/12/2023 7:19 PM EDT [facility] Blood Venipuncture / Unknown 09/12/2023 6:07 PM EDT 09/12/2023 6:33 PM EDT Cornelius Mccarty MD LAB BLOOD ORDERABLES Final Resu lt Performing Organization Address City/[facility]/ZIP Co de Phone Number [facility] [address] [phone] * Lactic Acid with reflex (09/12/2023 6:07 PM EDT) Lactic Acid Level (mmol/L) 1.8 0.4 - 2.0 mmol/L 09/12/2023 6:59 PM EDT [facility] Comment:If a Lactic Acid Lev el with Reflex if Indicated result is greater than 2.0, a Lactic Acid Level will be ordered to be collected 2 hours after the original collection time. Blood Venipuncture / Unknown 09/12/2023 6:07 PM EDT 09/12/2023 6:32 PM EDT us Cornelius Mccarty MD LAB BLOOD ORDERABLES Final Resu lt Performing Organization Address [facility] Co de Phone Number [facility] [address] [phone] * aPTT (09/12/2023 6:07 PM EDT) PTT 23.2 22.0 - 32.0 seconds 09/12/2023 6:57 PM EDT [facility] Blood Venipuncture / Unknown 09/12/2023 6:07 PM EDT 09/12/2023 6:33 PM EDT Narrative [facility] - 09/12/2023 6:57 PM EDT The reference ranges have changed effective 08/25/2023. us Cornelius Mccarty MD LAB BLOOD ORDERABLES Final Resu lt Performing Organization Address City/[facility] Co de Phone Number [facility] [address] [phone] * Prothrombin time/INR (09/12/2023 6:07 PM EDT) Protime 10.9 9.0 - 12.0 seconds 09/12/2023 6:57 PM EDT [facility] INR 0.99 0.80 - 1.10 09/12/2023 6:57 PM EDT [facility] Comment: The reference ranges have changed effective 08/25/2023. Recommended therapeutic ranges using International Normalized Ratio (INR) are: INR RANGE 2.0 - 3.0 ? Routine oral anticoagulant therapy 2.5 - 3.5 ? Oral anticoagulant therapy for patients with thromboembolic events on standard doses of Coumadin and those with mechanical heart valves. Blood Venipuncture / Unknown 09/12/2023 6:07 PM EDT 09/12/2023 6:33 PM EDT Result Villa Mccarty MD LAB BLOOD ORDERABLES Final Resu lt [facility] [address] [place] [address], [place] [phone] * (ABNORMAL) CBC with automated diff (09/12/2023 6:07 PM EDT) WBC 13.2(H) 4.0 - 10.0 K/??L 09/12/2023 7:19 PM EDT [facility] RBC 2.85(L) 3.93 - 5.22 M/??L 09/12/2023 7:19 PM EDT [facility] Hemoglobin 8.5(L) 11.2 - 15.7 GM/DL 09/12/2023 7:19 PM EDT [facility] Hematocrit 23.6(L) 34.1 - 44.9 % 09/12/2023 7:19 PM EDT [facility] MCV 83 79 - 95 fL 09/12/2023 7:19 PM EDT [facility] MCH 29.8 25.6 - 32.2 pg 09/12/2023 7:19 PM EDT [facility] MCHC 36.0(H) 32.2 - 35.5 GM/DL 09/12/2023 7:19 PM EDT [facility] RDW 12.6 11.7 - 14.4 % 09/12/2023 7:19 PM EDT [facility] Platelets 184 140 - 375 K/CU MM 09/12/2023 7:19 PM EDT [facility] MPV 11.7 9.4 - 12.3 fL 09/12/2023 7:19 PM EDT [facility] % Neutros 95(H) 34 - 71 % 09/12/2023 7:19 PM EDT [facility] % Lymphs 3(L) 19 - 52 % 09/12/2023 7:19 PM EDT [facility] % Monos 2(L) 5 - 13 % 09/12/2023 7:19 PM EDT [facility] % Eos 0(L) 1 - 6 % 09/12/2023 7:19 PM EDT [facility] % Baso 0 0 - 1 % 09/12/2023 7:19 PM EDT [facility] NRBC Absolute <0.01 0 - 0.012 K/ul 09/12/2023 7:19 PM EDT [facility] # Neutros 12.48(H) 1.56 - 6.13 K/??L 09/12/2023 7:19 PM EDT [facility] # Lymphs 0.38(L) 1.18 - 3.74 K/??L 09/12/2023 7:19 PM EDT [facility] # Monos 0.29 0.24 - 0.86 K/??L 09/12/2023 7:19 PM EDT [facility] # Eos <0.03(L) 0.04 - 0.36 K/??L 09/12/2023 7:19 PM EDT [facility] # Baso <0.03 0.01 - 0.08 K/??L 09/12/2023 7:19 PM EDT [facility] Immature Granulocytes-Re lative 0.30 0.01 - 0.43 % 09/12/2023 7:19 PM EDT [facility] # IG 0.04(H) 0.00 - 0.03 K/uL 09/12/2023 7:19 PM EDT [facility] Blood Venipuncture / Unknown 09/12/2023 6:07 PM EDT 09/12/2023 6:33 PM EDT Narrative [facility] - 09/12/2023 7:19 PM EDT When CBC w/ Auto Diff is ordered the lab will add a Manual Differential as a quality check at no additional charge if: Lymphocytes greater than seventy five percent with normal or increased WBC Monocytes greater than Fifteen percent Basophil greater than four percent Bands >10% or several immature myeloids are seen on scan Blast? Flag noted Atypical Lymph flag noted Note: reference ranges were changed on 07/13/2023. us Cornelius Mccarty MD LAB BLOOD ORDERABLES Final Resu lt [facility] [address] [place] [address], [place] [phone] * Blood Culture Antecubital, Right (09/12/2023 6:06 PM EDT) Result No growth in 5 days 09/18/2023 1:01 AM EDT [facility] Blood ANTECUBITAL REGION STRUCTURE / Unknown Venipuncture / Unknown 09/12/2023 6:06 PM EDT 09/12/2023 6:33 PM EDT us Cornelius Mccarty MD MICROBIOLOGY - GENERAL ORDERABL ES Final Result [facility] [address] [phone] * EKG-SCANNED (09/12/2023) Narrative 09/12/2023 Ordered by an unspecified provider. us Default Scanning Provider SCAN ORDERS Final Result documented in this encounter Visit Diagnoses Diagnosis Weakness- Primary Other malaise and fatigue documented in this encounter Admitting Diagnoses Diagnosis Weakness Other malaise and fatigue documented in this encounter Administered Medications Inactive Administered Medications - up to 3 most recent administrations Medication Order MAR Action Action Date Dose Rate Site acetaminophen (TYLENOL) tablet 650 mg 650 mg Every 6 hours PRN, oral, mild pain (1-3), headache, fever greater than or equal to 100.4 f, Starting on Wed09/12/23 at 1754, 1st line analgesic Given 09/24/2023 9:05 AM EDT 650 mg Given 09/23/2023 6:54 PM EDT 650 mg Given 09/23/2023 8:14 AM EDT 650 mg albumin, human 25% 25 g Once, intravenous, On Wed09/15/23 at 1300, For 1 dose, Albumin is restricted for approved indications only and limited to 24 hr duration, with exception of the last indication restricted to 48 hrs. If albumin therapy is needed beyond 24 hrs a new order should be placed by the provider. Choose an indication. Volume resuscitation after 4 L of Crystalloid within the past 24 Hours New Bag 09/15/2023 3:00 PM EDT 25 g albumin, human 25% 25 g Once, intravenous, On Wed09/17/23 at 1200, For 1 dose, Albumin is restricted for approved indications only and limited to 24 hr duration, with exception of the last indication restricted to 48 hrs. If albumin therapy is needed beyond 24 hrs a new order should be placed by the provider. Choose an indication. Volume resuscitation after 4 L of Crystalloid within the past 24 Hours New Bag 09/17/2023 3:11 PM EDT 25 g ALPRAZolam (XANAX) tablet 0.5 mg 0.5 mg Every 4 hours PRN, oral, anxiety, Starting on Wed09/12/23 at 1806 Given 09/16/2023 3:41 PM EDT 0.5 mg Given 09/13/2023 11:40 PM EDT 0.5 mg Given 09/12/2023 9:45 PM EDT 0.5 mg amLODIPine (NORVASC) tablet 2.5 mg 2.5 mg Daily, oral, First dose on Wed09/22/23 at 1200, Antihypertensive - Check BP - Check Pulse Given 09/25/2023 9:26 AM EDT 2.5 mg Given 09/24/2023 9:00 AM EDT 2.5 mg Given 09/23/2023 8:14 AM EDT 2.5 mg apixaban (ELIQUIS) tablet 10 mg 10 mg 2 times daily, oral, First dose on Wed09/21/23 at 1030 Given 09/25/2023 9:26 AM EDT 10 mg Given 09/24/2023 9:02 PM EDT 10 mg Given 09/24/2023 9:01 AM EDT 10 mg aspirin chewable tablet 81 mg 81 mg Daily, oral, First dose on Wed09/22/23 at 1200 Given 09/25/2023 9:26 AM EDT 81 mg Given 09/24/2023 9:01 AM EDT 81 mg Given 09/23/2023 8:14 AM EDT 81 mg busPIRone (BUSPAR) tablet 5 mg 5 mg 2 times daily, oral, First dose (after last modification) on Wed09/22/23 at 1200 Given 09/25/2023 9:26 AM EDT 5 mg Given 09/24/2023 9:02 PM EDT 5 mg Given 09/24/2023 9:00 AM EDT 5 mg cefTRIAXone (ROCEPHIN) 2 g in sodium chloride 0.9 % (NS) MBP 50 mL IVPB 2 g Every 24 hours, intravenous, at 100 mL/hr, First dose on Wed09/13/23 at 1200, Please choose an indication: Urinary Tract Infection IVPB Started 09/20/2023 11:45 AM EDT 2 g 100 mL/hr IVPB Started 09/19/2023 10:50 AM EDT 2 g 100 mL/hr IVPB Started 09/18/2023 12:55 PM EDT 2 g 100 mL/hr cloNIDine HCL (CATAPRES) tablet 0.1 mg 0.1 mg Every 8 hours PRN, oral, hypertension (sbp greater than 160), Starting on Wed09/12/23 at 1754, Hold if SBP < 100 mmHg, DBP < 50 mmHg, or HR < 50 bpm, or patient is on pressor. Look-alike/Sound-alike medication cyclobenzaprine (FLEXERIL) tablet 10 mg 10 mg 3 times daily PRN, oral, muscle spasms, Starting on Wed09/12/23 at 1806 Given 09/23/2023 6:54 PM EDT 10 mg Given 09/19/2023 3:41 AM EDT 10 mg Given 09/18/2023 9:06 AM EDT 10 mg docusate sodium (COLACE) capsule 100 mg 100 mg 2 times daily PRN, oral, constipation, Starting on Wed09/12/23 at 1754, 2nd line for constipation Bowel Regimen - for prevention of constipation. doxycycline (VIBRAMYCIN) 100 mg in sodium chloride 0.9 % (NS) MBP 100 mL IVPB 100 mg Every 12 hours scheduled, intravenous, at 100 mL/hr, First dose on Wed09/12/23 at 2100, Please choose an indication: Pneumonia IVPB Started 09/20/2023 2:21 AM EDT 100 mg 100 mL /hr IVPB Started 09/19/2023 3:34 PM EDT 100 mg 100 mL/hr IVPB Started 09/19/2023 3:41 AM EDT 100 mg 100 mL/hr enoxaparin (LOVENOX) syringe 50 mg 50 mg Every 12 hours scheduled (rounded from 48.5 mg = 1 mg/kg ? 48.5 kg), subcutaneous, First dose on Wed09/13/23 at 1300, Do not administer within 12 hours of epidural or lumbar puncture. Look-Alike/Sound-Alike Alert Given 09/14/2023 8:50 AM EDT 50 mg Abdom inal Tissue Given 09/13/2023 8:30 PM EDT 50 mg Ab dominal Tissue Given 09/13/2023 12:53 PM EDT 50 mg A bdominal Tissue enoxaparin (LOVENOX) syringe 50 mg 50 mg Every 12 hours scheduled, subcutaneous, First dose on Wed09/14/23 at 2100, Do not administer within 12 hours of epidural or lumbar puncture. Look-Alike/Sound-Alike Alert Given 09/20/2023 8:46 PM EDT 50 mg Abdom inal Tissue Given 09/20/2023 9:04 AM EDT 50 mg Ab dominal Tissue Given 09/19/2023 9:20 PM EDT 50 mg Ab dominal Tissue escitalopram oxalate (LEXAPRO) tablet 10 mg 10 mg Every morning, oral, First dose on Wed09/23/23 at 0600 Given 09/25/2023 6:27 AM EDT 10 mg Given 09/24/2023 5:41 AM EDT 10 mg Given 09/23/2023 6:13 AM EDT 10 mg famotidine (PEPCID) tablet 20 mg 20 mg 2 times daily, oral, First dose on Wed09/12/23 at 2100, Pharmacist to renally dose if CrCl is less than 50 mL/min or on CRRT. Given 09/22/2023 8:06 AM EDT 20 m g Given 09/21/2023 9:41 PM EDT 20 mg Given 09/21/2023 10:31 AM EDT 20 mg furosemide (LASIX) injection 20 mg 20 mg Once, intravenous, On Wed09/15/23 at 0030, For 1 dose Given 09/15/2023 2:25 AM EDT 20 mg furosemide (LASIX) injection 20 mg 20 mg Once, intravenous, On Wed09/16/23 at 1330, For 1 dose Given 09/16/2023 2:23 PM EDT 20 mg furosemide (LASIX) injection 20 mg 20 mg Once, intravenous, On Wed09/16/23 at 2300, For 1 dose Given 09/17/2023 12:47 AM EDT 20 mg furosemide (LASIX) injection 20 mg 20 mg 2 times daily diuretic, intravenous, First dose (after last modification) on Wed09/17/23 at 1200, For 1 day Given 09/17/2023 2:04 PM EDT 20 mg furosemide (LASIX) injection 20 mg 20 mg 2 times daily diuretic, intravenous, First dose (after last reorder) on Wed09/18/23 at 1700, For 1 day Given 09/19/2023 10:46 AM EDT 20 mg Given 09/18/2023 4:26 PM EDT 20 mg furosemide (LASIX) injection 20 mg 20 mg 2 times daily diuretic, intravenous, First dose (after last reorder) on Wed09/19/23 at 1700, For 1 day Given 09/20/2023 9:05 AM EDT 20 mg Given 09/19/2023 7:10 PM EDT 20 mg furosemide (LASIX) tablet 20 mg 20 mg Daily, oral, First dose on Wed09/24/23 at 1300 Given 09/25/2023 9:26 AM EDT 20 mg Given 09/24/2023 1:35 PM EDT 20 mg gabapentin (NEURONTIN) capsule 100 mg 100 mg 3 times daily, oral, First dose on Wed09/21/23 at 1700 Given 09/22/2023 8:06 AM EDT 100 mg Given 09/21/2023 9:41 PM EDT 100 mg gabapentin (NEURONTIN) capsule 100 mg 100 mg Every Night, oral, First dose (after last modification) on Wed09/22/23 at 2100 Given 09/24/2023 9:02 PM EDT 10 0 mg Given 09/23/2023 9:22 PM EDT 100 mg Given 09/22/2023 9:54 PM EDT 100 mg gabapentin (NEURONTIN) capsule 300 mg 300 mg 2 times daily, oral, First dose on Wed09/15/23 at 2100 Given 09/18/2023 9:07 AM EDT 300 mg Given 09/17/2023 8:38 PM EDT 300 mg Given 09/17/2023 8:31 AM EDT 300 mg gabapentin (NEURONTIN) capsule 300 mg 300 mg 3 times daily, oral, First dose (after last modification) on Wed09/18/23 at 1500 Given 09/21/2023 10:31 AM EDT 300 mg Given 09/20/2023 8:46 PM EDT 300 mg Given 09/20/2023 9:04 AM EDT 300 mg heparin injection 5,000 Units 5,000 Units Every 8 hours scheduled, subcutaneous, First dose on Wed09/12/23 at 2100 Given 09/13/2023 5:57 AM EDT 5,000 Units Abdominal Tissue Given 09/12/2023 9:40 PM EDT 5,000 Units A bdominal Tissue hydrALAZINE (APRESOLINE) injection 10 mg 10 mg Every 4 hours PRN, intravenous, hypertension (sbp greater than 160), Starting on Wed09/12/23 at 1754, Hold if SBP < 100 mmHg, DBP < 50 mmHg, or patient is on pressor. Look-alike/Sound-alike medication Given 09/13/2023 12:32 AM EDT 10 mg ipratropium-albuteroL (DUO-NEB) 0.5-2.5 (3) mg/3 mL nebulizer solution 3 mL 3 mL Every 4 hours PRN, nebulization, wheezing, Starting on Wed09/12/23 at 1806, RESPIRATORY THERAPY TREATMENT Protect from Light, What is the respiratory therapy Modality? Small volume Nebulization melatonin tablet 6 mg 6 mg Every Night PRN, oral, insomnia, sleep, Starting on Wed09/12/23 at 1754 Given 09/20/2023 8:46 PM EDT 6 mg Given 09/18/2023 1:38 AM EDT 6 mg Given 09/13/2023 8:29 PM EDT 6 mg melatonin tablet 9 mg 9 mg Every Night, oral, First dose (after last modification) on Wed09/22/23 at 2100 Given 09/24/2023 9:02 PM EDT 9 mg Given 09/23/2023 9:22 PM EDT 9 mg Given 09/22/2023 9:54 PM EDT 9 mg midodrine (PROAMATINE) tablet 2.5 mg 2.5 mg Once, oral, On Wed09/17/23 at 1200, For 1 dose, Administer during day hours only and at least 4 hours before bedtime. Given 09/17/2023 2:03 PM EDT 2.5 mg morphine injection 2 mg 2 mg Every 4 hours PRN, intravenous, severe pain (7-10), Starting on 09/13/23 at 0202, 3rd line analgesic. Give only if inadequate response (less than 50% reduction in pain score) 60 minutes after administration of 2nd line agent. May give in addition to 1st + 2nd line analgesics (+ adjuvants if ordered) Given 09/18/2023 9:06 AM EDT 2 m g Given 09/17/2023 3:00 AM EDT 2 mg Given 09/15/2023 10:10 PM EDT 2 mg multivitamin (THERAGRAN) tablet 1 tablet 1 tablet Daily, oral, First dose on Wed09/22/23 at 1200, Therapeutic Interchange for Multivitamins. Given 09/25/2023 9:26 AM EDT 1 tablet Given 09/24/2023 9:00 AM EDT 1 tablet Given 09/23/2023 8:14 AM EDT 1 tablet ondansetron (ZOFRAN-ODT) disintegrating tablet 4 mg 4 mg Every 8 hours PRN, oral, nausea, vomiting, Starting on 09/12/23 at 1756, 1st line. If inadequate response within 60 minutes, proceed to next-line agent for same PRN reason or contact provider if no further options ordered. ondansetron PF (ZOFRAN) injection 4 mg 4 mg Every 8 hours PRN, intravenous, nausea, vomiting, Starting on 09/12/23 at 1756, Give IV if patient is unable to take orally. 1st line If inadequate response within 60 minutes, proceed to next-line agent for same PRN reason or contact provider if no further options ordered. For IV push, give over 2 - 5 minutes. oxyCODONE (ROXICODONE) immediate release tablet 5 mg 5 mg Every 4 hours PRN, oral, moderate pain (4-6), Starting on 09/12/23 at 1757, Look-alike/Sound-alike medication Given 09/19/2023 10:46 AM EDT 5 mg Given 09/19/2023 3:41 AM EDT 5 mg Given 09/18/2023 4:26 PM EDT 5 mg pantoprazole (PROTONIX) DR tablet 40 mg 40 mg Daily, oral, First dose on Wed09/22/23 at 1400, * DO NOT CRUSH THIS DOSAGE FORM * Given 09/25/2023 9:26 AM EDT 4 0 mg Given 09/24/2023 9:01 AM EDT 40 mg Given 09/23/2023 8:14 AM EDT 40 mg piperacillin-tazobactam (ZOSYN) 4.5 g in sodium chloride 0.9 % (NS) MBP 100 mL IVPB 4.5 g Every 6 hours scheduled, intravenous, Administer over 3 Hours, First dose on Wed09/12/23 at 1830, Please choose an indication: Pneumonia IVPB Started 09/13/2023 5:57 AM EDT 4.5 g 33.3 m L/hr IVPB Started 09/13/2023 12:33 AM EDT 4.5 g 33.3 mL/hr IVPB Started 09/12/2023 6:42 PM EDT 4.5 g 33.3 mL/hr polyethylene glycol (GLYCOLAX) packet 17 g 17 g Daily as needed, oral, constipation, Starting on Wed09/12/23 at 1754, 1st line for constipation Bowel Regimen - for prevention of constipation. Given 09/15/2023 10:22 PM EDT 17 g Given 09/14/2023 12:49 PM EDT 17 g polyethylene glycol (GLYCOLAX) packet 17 g 17 g Daily, oral, First dose on Wed09/14/23 at 1300, DISSOLVE IN 8 OUNCES OF WATER, JUICE, SODA, COFFEE OR TEA Given 09/23/2023 8:14 AM EDT 17 g Given 09/21/2023 10:31 AM EDT 17 g Given 09/20/2023 9:05 AM EDT 17 g QUEtiapine (SEROquel) tablet 12.5 mg 12.5 mg Every Night, oral, First dose on Wed09/24/23 at 2100 Given 09/24/2023 9:02 PM EDT 12.5 mg QUEtiapine (SEROquel) tablet 12.5 mg 12.5 mg Every Night PRN, oral, may give additional dose if sleep not obtained with first dose, Starting on Wed09/24/23 at 1731 senna-docusate (SENOKOT S) tablet 8.6-50 mg 1 tablet Every Night, oral, First dose on Wed09/14/23 at 2100 Given 09/22/2023 9:54 PM EDT 1 tablet Given 09/20/2023 8:46 PM EDT 1 tablet Given 09/19/2023 9:20 PM EDT 1 tablet sodium chloride 0.9% (NS) flush 10 mL 10 mL As needed, intravenous, line care, Starting on Wed09/12/23 at 1754, Every 8 hours and PRN to flush sodium chloride 0.9% (NS) infusion 1,000 mL Continuous, intravenous, at 100 mL/hr, Starting on Wed09/12/23 at 1830 New Bag 09/13/2023 9:36 AM EDT 1,000 mLs 100 mL/hr New Bag 09/12/2023 6:39 PM EDT 1,000 mLs 100 mL/hr sodium chloride disintegrating tablet 1 g 1 g Once, oral, On Wed09/20/23 at 1130, For 1 dose Given 09/20/2023 11:46 AM EDT 1 g documented in this encounter Active and Recently Administered Medications Times are shown in EDT. Scheduled Medication Order 09/23/2023 09/24/2023 09/25/2023 amLODIPine (NORVASC) tablet 2.5 mg 2.5 mg Daily, oral, First dose on Wed09/22/23 at 1200, Antihypertensive - Check BP - Check Pulse 0814 (Given - Provider: Sarai Nunn RN) 0900 (Given - Provider: Lupe Loza RN) 0926 (Given - Provider: Vicki Mulligan LPN) apixaban (ELIQUIS) tablet 10 mg 10 mg 2 times daily, oral, First dose on Wed09/21/23 at 1030 0825 (Given - Provider: Sarai Nunn RN)2121 (Given - Provider: Lupe Gillespie RN) 09 (Given - Provider: Lupe Loza RN)2101 (Given - Provider: Lupe Gillespie RN) 0926 (Given - Provider: Vicki Mulligan LPN) aspirin chewable tablet 81 mg 81 mg Daily, oral, First dose on Wed09/22/23 at 1200 0814 (Given - Provider: Sarai Nunn RN) 0901 (Given - Provider: Lupe Loza RN) 0926 (Given - Provider: Vicki Mulligan LPN) busPIRone (BUSPAR) tablet 5 mg 5 mg 2 times daily, oral, First dose (after last modification) on Wed09/22/23 at 1200 0814 (Given - Provider: Sarai Nunn RN)2121 (Given - Provider: Lupe Gillespie RN) 09 (Given - Provider: Lupe Loza RN)2101 (Given - Provider: Lupe Gillespie RN) 09 (Given - Provider: Vicki Mulligan LPN) escitalopram oxalate (LEXAPRO) tablet 10 mg 10 mg Every morning, oral, First dose on Wed09/23/23 at 0600 0613 (Given - Provider: Lupe Gillespie RN) 0541 (Given - Provider: Lupe Gillespie RN) 06 (Given - Provider: Lupe Gillespie RN) furosemide (LASIX) tablet 20 mg 20 mg Daily, oral, First dose on Wed09/24/23 at 1300 1335 (Given - Provider: Lupe Loza RN) 09 (Given - Provider: Vicki Mulligan LPN) gabapentin (NEURONTIN) capsule 100 mg 100 mg Every Night, oral, First dose (after last modification) on Wed09/22/23 at 2100 2121 (Given - Provider: Lupe Gillespie RN) 2101 (Given - Provider: Lupe Gillespie RN) melatonin tablet 9 mg 9 mg Every Night, oral, First dose (after last modification) on Wed09/22/23 at 2100 2121 (Given - Provider: Lupe Gillespie RN) 2101 (Given - Provider: Lupe Gillespie RN) multivitamin (THERAGRAN) tablet 1 tablet 1 tablet Daily, oral, First dose on Wed09/22/23 at 1200, Therapeutic Interchange for Multivitamins. 0814 (Given - Provider: Sarai Nunn RN) 0900 (Given - Provider: Lupe Loza RN) 09 (Given - Provider: Vicki Mulligan LPN) pantoprazole (PROTONIX) DR tablet 40 mg 40 mg Daily, oral, First dose on Wed09/22/23 at 1400, * DO NOT CRUSH THIS DOSAGE FORM * 0814 (Given - Provider: Sarai Nunn RN) 0901 (Given - Provider: Lupe Loza RN) 09 (Given - Provider: Vicki Mulligan LPN) polyethylene glycol (GLYCOLAX) packet 17 g (CANCELED) 17 g Daily, oral, First dose on Wed09/14/23 at 1300, DISSOLVE IN 8 OUNCES OF WATER, JUICE, SODA, COFFEE OR TEA 0814 (Given - Provider: Saria Nunn, OMER) QUEtiapine (SEROquel) tablet 12.5 mg 12.5 mg Every Night, oral, First dose on Wed09/24/23 at 2100 2102 (Given - Provider: Lupe Gillespie RN) sodium chloride 0.9% (NS) infusion(Linked Group 1) 250 mL Once, intravenous, at 20 mL/hr, On Wed09/17/23 at 0600, For 1 dose, Used to prep and flush blood tubing before and in between units of blood. sodium chloride disintegrating tablet 1 g 1 g Once, oral, On Wed09/19/23 at 1300, For 1 dose sodium chloride disintegrating tablet 1 g 1 g Once, oral, On Wed09/21/23 at 1000, For 1 dose PRN Medication Order 09/23/2023 09/24/2023 09/25/2023 acetaminophen (TYLENOL) tablet 650 mg 650 mg Every 6 hours PRN, oral, mild pain (1-3), headache, fever greater than or equal to 100.4 f, Starting on Wed09/12/23 at 1754, 1st line analgesic 0122 (Given - Provider: Lupe Gillespie RN)0814 (Given - Provider: Sarai Nunn, OMRE)1854 (Given - Provider: Sarai Nunn RN) 0905 (Given - Provider: Lupe Loza RN) cloNIDine HCL (CATAPRES) tablet 0.1 mg 0.1 mg Every 8 hours PRN, oral, hypertension (sbp greater than 160), Starting on Wed09/12/23 at 1754, Hold if SBP < 100 mmHg, DBP < 50 mmHg, or HR < 50 bpm, or patient is on pressor. Look-alike/Sound-alike medication cyclobenzaprine (FLEXERIL) tablet 10 mg 10 mg 3 times daily PRN, oral, muscle spasms, Starting on Wed09/12/23 at 1806 1854 (Given - Provider: Sarai Nunn RN) docusate sodium (COLACE) capsule 100 mg 100 mg 2 times daily PRN, oral, constipation, Starting on 09/12/23 at 1754, 2nd line for constipation Bowel Regimen - for prevention of constipation. hydrALAZINE (APRESOLINE) injection 10 mg 10 mg Every 4 hours PRN, intravenous, hypertension (sbp greater than 160), Starting on 09/12/23 at 1754, Hold if SBP < 100 mmHg, DBP < 50 mmHg, or patient is on pressor. Look-alike/Sound-alike medication ipratropium-albuteroL (DUO-NEB) 0.5-2.5 (3) mg/3 mL nebulizer solution 3 mL 3 mL Every 4 hours PRN, nebulization, wheezing, Starting on 09/12/23 at 1806, RESPIRATORY THERAPY TREATMENT Protect from Light, What is the respiratory therapy Modality? Small volume Nebulization ondansetron (ZOFRAN-ODT) disintegrating tablet 4 mg(Linked Group 2) 4 mg Every 8 hours PRN, oral, nausea, vomiting, Starting on 09/12/23 at 1756, 1st line. If inadequate response within 60 minutes, proceed to next-line agent for same PRN reason or contact provider if no further options ordered. ondansetron PF (ZOFRAN) injection 4 mg(Linked Group 2) 4 mg Every 8 hours PRN, intravenous, nausea, vomiting, Starting on 09/12/23 at 1756, Give IV if patient is unable to take orally. 1st line If inadequate response within 60 minutes, proceed to next-line agent for same PRN reason or contact provider if no further options ordered. For IV push, give over 2 - 5 minutes. QUEtiapine (SEROquel) tablet 12.5 mg 12.5 mg Every Night PRN, oral, may give additional dose if sleep not obtained with first dose, Starting on Wed09/24/23 at 1731 sodium chloride 0.9% (NS) flush 10 mL(Linked Group 3) 10 mL As needed, intravenous, line care, Starting on 09/12/23 at 1754, Every 8 hours and PRN to flush Linked Groups Order Group 1: Prepare RBC: 1 Units, Leukoreduced (COMPLETED) STAT, Prepare 1 Units And Transfuse RBC: 1 Units, Leukoreduced (CANCELED) Routine, Transfuse 1 Units And sodium chloride 0.9% (NS) infusionJump to med 250 mL Once, intravenous, at 20 mL/hr, On Wed09/17/23 at 0600, For 1 dose, Used to prep and flush blood tubing before and in between units of blood. Group 2: ondansetron (ZOFRAN-ODT) disintegrating tablet 4 mgJump to med 4 mg Every 8 hours PRN, oral, nausea, vomiting, Starting on Wed09/12/23 at 1756, 1st line. If inadequate response within 60 minutes, proceed to next-line agent for same PRN reason or contact provider if no further options ordered. Or ondansetron PF (ZOFRAN) injection 4 mgJump to med 4 mg Every 8 hours PRN, intravenous, nausea, vomiting, Starting on Wed09/12/23 at 1756, Give IV if patient is unable to take orally. 1st line If inadequate response within 60 minutes, proceed to next-line agent for same PRN reason or contact provider if no further options ordered. For IV push, give over 2 - 5 minutes. Group 3: Insert Peripheral IV (CANCELED) STAT, Once, On Wed09/12/23 at 1755, For 1 occurrence And Saline Lock IV (CANCELED) Routine, Once, On Wed09/12/23 at 1755, For 1 occurrence And sodium chloride 0.9% (NS) flush 10 mLJump to med 10 mL As needed, intravenous, line care, Starting on Wed09/12/23 at 1754, Every 8 hours and PRN to flush documented in this encounter Care Teams Bridge Worker Apprentice Relationship Specialty Start Date End Date Provider, Not In System [place] PCP - General 09/12/23 documented as of this encounter
[2024-05-01] MEDS: GABAPENTIN 300MG CAPSULE 300 MG PO ×2 (11:57→20:40)
[2024-05-01 12:28] LABS: Free T4 (Free Thyroxine) 1.28 ng/dl (0.78-2.19)
--- NOTE | 2024-05-01 14:36 | P.PN_ITS ---
Subjective *Date: 05/01/24 *Time: 14:36 Interval history: Patient slept well overnight without pain after starting ropinirole and increasing gabapentin to 300 mg. Patient complained of feet pain again morning, responded again to the gabapentin 300 mg. PT/OT recommended SNF. Pending placement at this time. Exam Data for Last 24 hours Vital signs and Labs for Last 24 Hours: Temp Pulse Resp BP Pulse Ox O2 Del Method O2 Flow Rate 98.1 F 80 14 220/100 H 97 Room Air 97 05/01/24 12:00 05/01/24 12:00 05/01/24 12:00 05/01/24 12:00 05/01/24 12:00 05/01/24 13:00 05/01/24 05:00 Laboratory Results - last 24 hr 05/01/24 05:24: WBC 7.3, RBC 4.13 L, Hgb 12.4, Hct 36.9 L, MCV 89.4, MCH 30.1, MCHC 33.7, RDW 13.7, Plt Count 178, MPV 8.2, Neut % (Auto) 73.4, Lymph % (Auto) 17.0, [place] % (Auto) 8.8, Eos % (Auto) 0.4, Baso % (Auto) 0.5, Neut # (Auto) 5.3, Lymph # (Auto) 1.2, [place] # (Auto) 0.6, Eos # (Auto) 0.0, Baso # (Auto) 0.0, Sodium 134 L, Potassium 3.8, Chloride 99, Carbon Dioxide 28, Anion Gap 10.8, BUN 12 D, Creatinine 0.80, Estimated Creat Clear 41, Estimated GFR 70, Est GFR ( Amer) 85 D, Glucose 95 D, Calcium 9.0, Magnesium 1.9, Iron 77, TIBC 274, Iron Saturation 28.31627, Ferritin 73.0, Total Bilirubin 0.7, AST 55 H D, ALT 26, Alkaline Phosphatase 49, NT-Pro-B Natriuret Pep 654 H, Total Protein 5.7 L, Albumin 3.7 D, Globulin 2.0, Albumin/Globulin Ratio 1.9 H, Free T4 1.28 I & O for Last 24 hours: Intake & Output 04/28/24 04/29/24 04/30/24 05/01/24 23:59 23:59 23:59 23:59 Intake Total 202.5 / 202.5 410 / 410 Output Total 600 / 1150 550 / 550 Balance -397.5 / -947.5 -140 / -140 Weight 52.277 kg 53.025 kg Microbiology Reports for the Last 24 Hours: Microbiology 04/30/24 09:20 Blood Blood Culture - Preliminary NO GROWTH AFTER 24 HOURS 04/30/24 09:20 Blood Blood Culture - Preliminary NO GROWTH AFTER 24 HOURS Constitutional Constitutional: no acute distress *Routine HEENT Exam Head: Present normocephalic Eye: Present EOMI and PERRL ENT: Present mucous membranes moist *Routine Neck Exam Neck: Present supple; Absent lymphadenopathy *Routine Respiratory Exam Respiratory: Present CTA bilaterally *Routine Cardiovascular Exam Cardiovascular: Present RRR *Routine Abdominal Exam Abdominal: Present soft and normoactive bowel sounds; Absent tenderness *Routine Extremities Exam Extremities: Absent cyanosis, clubbing or edema *Routine Skin Exam Skin: Present warm; Absent rash *Routine Neurological Exam Neurological: Present alert and oriented X3 Assessment and Plan *Assessment and plan (1) Hypertensive emergency: Status: Acute Category: Medical Code(s): I16.1 - Hypertensive emergency (2) Declining functional status: Status: Acute Category: Medical Code(s): R53.81 - Other malaise (3) Lower extremity pain: Status: Acute Category: Medical Code(s): M79.606 - Pain in leg, unspecified (4) Urinary tract infection: Status: Suspected Qualifiers: Urinary tract infection type: acute pyelonephritis Qualified Code(s): N 10 - Acute pyelonephritis Category: Medical Code(s): N39.0 - Urinary tract infection, site not specified (5) Physical deconditioning: Status: Acute Category: Medical Code(s): R53.81 - Other malaise (6) Restless leg syndrome: Status: Acute Category: Medical Code(s): G25.81 - Restless legs syndrome Plan Birgit Estrada is a 74-year-old female with a medical history significant for hypertension, anxiety/depression, GERD who presents with worsening lower extremity pain. Patient and son state that she has had a longstanding history of lower extremity pain, specifically in the calfs and feet that have gotten worse over the past few days. Patient was unable to sleep last night due to pain. Son states she has been able to ambulate just a few days ago, and living independently. Of note, patient had a fall earlier this year with significant debility of right hip without fracture, discharged to nursing facility for approximately 100 days. Son states she has been worked up for her bilateral leg pain by neurology who started her on gabapentin. She states that it had been helping until the last few days and which has gotten worse. On my interview, patient did not have significant pain and was pleasant and conversational eating her lunch. Of note, patient's blood pressure was 210/82 in the ED with signs of endorgan damage with proteinuria. Patient also states she has been seeing floaters recently. Case discussed with ED provider and decision was made to admit patient for hypertensive emergency. #Hypertensive emergency, resolved #Hypertension ? Initial BP 210/82 with proteinuria. Had been feeling weak, dizzy, with floaters for a few days prior to admission. ? Head CT did not show acute findings. ? Nicardipine drip was started in the ED with improvement in blood pressures to 151/76. ? Initially started irbesartan 75 mg daily in the setting of CKD. Patient takes losartan 25mg at home. ? Blood pressure continues to be elevated SBP 150s overnight and 180 this this afternoon, though this in the inpatient setting. Leg pain is improved. Will increase irbesartan to 150 mg daily as patient presented with hypertensive emergency. ? Irbesartan 150 mg daily. - Leg pain may be intermittently contributing to elevated blood pressures, however pain better today. #Bilateral feet pain #Suspected restless leg syndrome - Has had on and off pain in bilateral calves and feet, worse over the past few days. Gabapentin 200 mg at home has not been efficacious recently. - Outpatient workup with neurology seemed to have not suggested sciatica or abnormal nerve conduction studies, though patient had a fall this year requiring 100 day SNF rehab. - May be secondary to restless legs syndrome. Iron studies are normal. ? Patient slept well overnight without pain after starting ropinirole and increasing gabapentin to 300 mg. Patient complained of feet pain again morning, responded again to the gabapentin 300 mg. - Continue ropironole 2mg nightly. ? Gabapentin 300 mg twice daily. - Pending venous, aterial duplexes to rule ot DVT and PAD claudication respectively. Patient could not tolerate arterial duplex however, though suspicion is low for PAD claudication and we can defer at this time. #Physical deconditioning ? PT/OT consulted, recommended SNF. Case management assisting with placement options. #UTI ? Patient complains of dysuria today. ? Follow-up UA, UC. ? Ceftriaxone day 06/18. #Anxety/depression - Home Buspar, Lexapro. #GERD - Home Protonix. FULL CODE Lovenox 40mg
[2024-05-01 16:17] LABS: Microscopic, Urine URINE MICROSCOPIC (MICROSCOPIC)
[2024-05-01 16:27] LABS: Appearance,Urine CLEAR (Clear); Bilirubin,Urine Negative (Negative); Blood, Urine TRACE-I (Negative); Color,Urine YELLOW (Yellow); Glucose,Urine (UA) Negative (Negative); Ketones,Urine Negative (Negative); Leukocyte Esterase,Urine Negative (Negative); Nitrate,Urine Negative (Negative); Protein,Urine Negative (Negative); Urobilinogen,Urine 0.2 EU/dl (0.2)
[2024-05-01 16:38] LABS: Bacteria,Urine 3+ /lpf; RBC,Urine Occasional #/hpf (0-3)
[2024-05-01] MEDS: ROPINIROLE 1MG TABLET 2 MG PO (20:40)
[2024-05-01] MEDS: NIFEdipine XL 30MG TABLET 30 MG PO (20:40)
--- NOTE | 2024-05-01 21:33 | CA_ITS ---
FINAL REPORT TECHNIQUE: Bilateral lower extremity venous duplex was performed with augmentation and compression. CLINICAL HISTORY: Bilateral leg pain and stiffness pt on ASA Pt legs very tender to touch unable to move legs very rigid and stiff. Limited images FINDINGS: Proper flow is seen throughout the deep venous systems of the right leg. There is no evidence of deep venous thrombosis. In the left lower extremity, the technologist was unable to scan the popliteal vein and calf veins due to pain. The femoral veins reveal proper flow, without evidence of deep venous thrombosis. IMPRESSION: No evidence of deep venous thrombosis in the right leg. Limited ultrasound examination of the left leg, as the technologist was unable to scan the popliteal and more distal veins due to pain. The femoral veins do not demonstrate deep venous thrombosis. Reviewed, Interpreted and Dictated by Jose Barnes MD Transcribed by Linda Rios Authenticated and [facility]
[2024-05-02] VITALS (10 sets, daily range): BP systolic 117–191; BP diastolic 57–93; PULSE 60–92; RESP 16–18; TEMP 36.6–37.2; O2SAT 92–97; BMI 19.5
[2024-05-02] MEDS: ACETAMINOPHEN 325MG TAB 650 MG PO ×3 (06:18→23:58)
[2024-05-02 06:48] LABS: Alanine Aminotransferase 37 U/L (12-78); Albumin Level 4.1 g/dl (3.5-5.0); Albumin/Globulin Ratio 1.9 (1.1-1.8); Alkaline Phosphatase 57 U/L (38-126); Anion Gap 11.7 mEq/L (5-15); Aspartate Amino Transferase 74 U/L (14-36); Blood Urea Nitrogen 13 mg/dl (7-17); Calcium 9.2 mg/dl (8.4-10.2); Carbon Dioxide 27 mmol/L (22.0-30.0); Chloride 92 mmol/L (98-107); Creatinine Clearance Estimated 41 mL/min (50-200); Estimated Glomerular Filt Rate 70 ml/min (>60); GFR (African American) 85 ML/MIN (>60); Globulin 2.2 g/dL (1.3-3.2); Glucose 90 mg/dl (74-100); Magnesium 1.5 mg/dl (1.6-2.3); Potassium 3.7 mmoL/L (3.5-5.1); Sodium 127 mmol/L (136-145); Total Protein,Serum 6.3 g/dl (6.3-8.2)
[2024-05-02 06:49] LABS: Basophils # 0.1 K/mm3 (0-0.2); Basophils % 0.5 % (0.1-2.0); Eosinophils % 0.4 % (0.1-12.0); Hematocrit 37.5 % (37.0-47.0); Hemoglobin 13.3 g/dL (12.2-16.2); Lymphocytes # 1.3 K/mm3 (0.7-4.5); Lymphocytes % 14.3 % (10-50); Mean Corpuscular HGB Conc 35.5 g/dL (31.8-35.4); Mean Corpuscular Hemoglobin 30.6 pg (27.0-31.2); Mean Corpuscular Volume 86.3 fl (81-99); Mean Platelet Volume 8.2 fl (7.4-10.4); Monocytes # 0.6 K/mm3 (0.1-1.0); Monocytes % 6.4 % (1.7-9.3); Neutrophils # 7.1 K/mm3 (1.8-7.8); Neutrophils % 78.4 % (37.0-80.0); Platelet Count 195 K/mm3 (142-424); Red Blood Count 4.35 M/mm3 (4.20-5.40); Red Cell Distribution Width 13.5 % (11.5-17.5); White Blood Count 9.1 K/mm3 (4.8-10.8)
--- NOTE | 2024-05-02 08:11 | EXP.ACUTE.PN ---
Subjective *Date: 05/02/24 *Time: 15:13 Interval history: Patient states she is feeling better today. On room air. Blood pressure showing some improvement. Patient still weak. Small amount of nausea today however. Sodium down to 127 on morning labs. At baseline mentation. Family at bedside. Afebrile Medical Exam Vital signs and Labs for Last 24 Hours: Vital Signs Temp Pulse Pulse Resp BP Pulse Ox O2 Del Method 05/02/24 06:25 Room Air 05/02/24 05:00 Room Air 05/02/24 04:00 97.9 F 86 16 191/93 H 94 L Room Air 05/02/24 04:00 80 05/02/24 03:00 Room Air 05/02/24 01:00 Room Air 05/02/24 00:00 70 05/02/24 00:00 97.9 F 80 16 184/92 H 95 Room Air 05/01/24 23:00 Room Air 05/01/24 21:00 Room Air 05/01/24 20:00 Room Air 05/01/24 20:00 100 H 05/01/24 20:00 98.4 F 76 16 208/96 H 94 L Room Air 05/01/24 18:23 Room Air 05/01/24 17:00 Room Air 05/01/24 16:00 98.4 F 76 18 198/102 H 97 Room Air 05/01/24 16:00 70 05/01/24 15:00 Room Air 05/01/24 14:43 181/82 H 05/01/24 13:00 Room Air 05/01/24 12:00 80 05/01/24 12:00 98.1 F 80 14 220/100 H 97 Room Air 05/01/24 11:00 Room Air 05/01/24 09:00 Room Air Intake and Output 05/01/24 05/02/24 05/02/24 23:59 07:59 15:59 Intake Total 240 / 1040 240 / 240 Output Total 400 / 1350 600 / 600 Balance -160 / -310 -360 / -360 Intake: Intake, Oral Amount 240 / 1040 240 / 240 Output: Output, Urine Amount 400 / 1350 600 / 600 Other: Number of Unmeasured Voids 0 0 Weight 51.982 kg Patient Weight 05/02/24 23:59 Weight 51.982 kg Laboratory Results - last 24 hr 05/01/24 05:24: Free T4 1.28 05/01/24 16:00: Urine Color Yellow, Urine Appearance Clear, Urine pH 7.0, Ur Specific [place] 1.020, Urine Protein Negative, Urine Glucose (UA) Negative, Urine Ketones Negative, Urine Blood Trace-i, Urine Nitrate Negative, Urine Bilirubin Negative, Urine Urobilinogen 0.2, Ur Leukocyte Esterase Negative, Urine RBC Occasional, Urine WBC 5-10, Ur Squamous Epith Cells 3-5, Urine Bacteria 3+ 05/02/24 05:19: WBC 9.1, RBC 4.35, Hgb 13.3, Hct 37.5, MCV 86.3, MCH 30.6, MCHC 35.5 H, RDW 13.5, Plt Count 195, MPV 8.2, Neut % (Auto) 78.4, Lymph % (Auto) 14.3, Person % (Auto) 6.4, Eos % (Auto) 0.4, Baso % (Auto) 0.5, Neut # (Auto) 7.1, Lymph # (Auto) 1.3, Person # (Auto) 0.6, Eos # (Auto) 0.0, Baso # (Auto) 0.1, Sodium 127 L, Potassium 3.7, Chloride 92 L, Carbon Dioxide 27, Anion Gap 11.7, BUN 13, Creatinine 0.80, Estimated Creat Clear 41, Estimated GFR 70, Est GFR ( Amer) 85, Glucose 90, Calcium 9.2, Magnesium 1.5 L D, Total Bilirubin 1.0, AST 74 H D, ALT 37 D, Alkaline Phosphatase 57, Total Protein 6.3, Albumin 4.1 D, Globulin 2.2, Albumin/Globulin Ratio 1.9 H I & O for Labs for Last 24 Hours: Intake & Output 04/29/24 04/30/24 05/01/24 05/02/24 23:59 23:59 23:59 23:59 Intake Total 202.5 / 202.5 800 / 1040 240 / 240 Output Total 600 / 1150 1350 / 1350 600 / 600 Balance -397.5 / -947.5 -550 / -310 -360 / -360 Weight 52.277 kg 53.025 kg 51.982 kg Microbiology Reports for the Last 24 Hours: Microbiology 04/30/24 09:20 Blood Blood Culture - Preliminary NO GROWTH AFTER 24 HOURS 04/30/24 09:20 Blood Blood Culture - Preliminary NO GROWTH AFTER 24 HOURS Constitutional: Present no acute distress, thin, chronically ill appearing and cooperative Head: Present atraumatic and normocephalic Neck: Present normal inspection Respiratory: Present normal respiratory effort; Absent rhonchi, wheezes or crackles Cardiac: Present Reg Rate and Rhythm GI: Present soft and normal bowel sounds; Absent distention or tenderness Extremities: Present normal inspection and full ROM; Absent tenderness or edema Skin: Present intact; Absent erythema Neuro: Present Grossly Intact, alert, awake, oriented x 3 and moves all extremities Comment:: Somewhat rigid and lower extremities Assessment and Plan *Assessment and plan (1) Hypertensive emergency: Status: Acute Category: Medical Code(s): I16.1 - Hypertensive emergency (2) Acute hyponatremia: Status: Acute Category: Medical Code(s): E87.1 - Hypo-osmolality and hyponatremia (3) Declining functional status: Status: Acute Category: Medical Code(s): R53.81 - Other malaise (4) Lower extremity pain: Status: Acute Category: Medical Code(s): M79.606 - Pain in leg, unspecified (5) Urinary tract infection: Status: Suspected Qualifiers: Urinary tract infection type: acute pyelonephritis Qualified Code(s): N10 - Acute pyelonephritis Category: Medical Code(s): N39.0 - Urinary tract infection, site not specified (6) Physical deconditioning: Status: Acute Category: Medical Code(s): R53.81 - Other malaise (7) Restless leg syndrome: Status: Acute Category: Medical Code(s): G25.81 - Restless legs syndrome Plan Birgit Estrada is a 74-year-old female with a medical history significant for hypertension, anxiety/depression, GERD who presents with worsening lower extremity pain. Patient and son state that she has had a longstanding history of lower extremity pain, specifically in the calfs and feet that have gotten worse over the past few days. Increased debility. Found to have significant hypertension. Continuing to address at this time. Problems addressed as follows: #Hypertensive emergency, resolved #Hypertension ? Initial BP 210/82 with proteinuria. Had been feeling weak, dizzy, with floaters for a few days prior to admission. ? Head CT did not show acute findings. ? Nicardipine drip was started in the ED with improvement in blood pressures to 151/76, off drip at this time. Transition to oral blood pressure regimen. -Improved control this morning with blood pressure systolics 1 50-1 80. ?Continue irbesartan 150 mg daily, increase nicardipine to 60 mg daily. Initiate carvedilol 6.25 mg daily. -Goal blood pressure systolic less than 140 - Leg pain may be intermittently contributing to elevated blood pressures, however pain better today. -Echo reviewed, EF normal. Renal duplex obtained, formal read pending -Discontinue HCTZ #Hyponatremia -Sodium dropped to 127, chloride 92. Potassium 3.7. Magnesium 1.5. Replacing magnesium IV x 2 today. In regard to sodium, initiate 1000 mg twice daily oral. [place] sodium diet. Previously had hyponatremia earlier this year thought to be secondary to nutritional deficit. Was transferred to higher level of care, ultimately supplemented. No underlying etiology found. Will discontinue diuretics. - Could be pain mediated SIADH., Urine sodium pending -Discontinue HCTZ -Repeat CBC, CMP, magnesium ordered for the morning. BMP ordered for this afternoon to monitor sodium and potassium #Bilateral feet pain #Suspected restless leg syndrome - Has had on and off pain in bilateral calves and feet, worse over the past few days. Gabapentin 200 mg at home has not been efficacious recently. - Outpatient workup with neurology seemed to have not suggested sciatica or abnormal nerve conduction studies, though patient had a fall this year requiring 100 day SNF rehab. - May be secondary to restless legs syndrome. Iron studies are normal. ? Continue ropinirole 2 mg nightly, continue gabapentin 300 mg twice daily. - Pending venous, aterial duplexes to rule ot DVT and PAD claudication respectively. Patient could not tolerate arterial duplex however, though suspicion is low for PAD claudication and we can defer at this time. #Physical deconditioning ? PT/OT consulted, recommended SNF. Case management assisting with placement options. #UTI ? Patient complains of dysuria today. ? Follow-up UA, UC. ? Ceftriaxone day 2/5. #Anxety/depression - Home Buspar, Lexapro. #GERD - Home Protonix. FULL CODE Lovenox 40mg Regular diet
[2024-05-02] MEDS: CEFTRIAXONE 1 GM 1 GM in 0.9 % SODIUM CHLORIDE 50 ML IV (08:32)
[2024-05-02] MEDS: CARVEDILOL 6.25MG TABLET 6.25 MG PO ×2 (08:33→17:03)
[2024-05-02] MEDS: ASPIRIN 81MG CHEWABLE TABLET 81 MG PO (08:34)
[2024-05-02] MEDS: IRBESARTAN 150MG TAB 150 MG PO (08:34)
[2024-05-02] MEDS: BUSPIRONE HCL 5 MG TABLET PO ×2 (08:34→20:24)
[2024-05-02] MEDS: ENOXAPARIN 40MG/0.4ML SYRINGE 40 MG SUBCUT (08:34)
[2024-05-02] MEDS: CITALOPRAM 20MG TABLET 20 MG PO (08:34)
[2024-05-02] MEDS: hydroCHLOROthiazide 25MG TABLET 25 MG PO (08:34)
[2024-05-02] MEDS: GABAPENTIN 300MG CAPSULE 300 MG PO ×2 (08:35→20:24)
[2024-05-02] MEDS: NIFEdipine XL 30MG TABLET 60 MG PO (08:35)
[2024-05-02] MEDS: OXYBUTYNIN 5MG TAB 5 MG PO ×2 (08:36→20:24)
[2024-05-02] MEDS: ONDANSETRON 4MG/2ML VIAL 4 MG IV (08:42)
[2024-05-02] MEDS: MAGNESIUM SULFATE IN WATER 2 GM/50 ML PIGGYBACK IV ×2 (09:19→10:15)
[2024-05-02] MEDS: SODIUM CHLORIDE 1,000MG TABLET 1000 MG PO ×2 (10:23→22:52)
[2024-05-02] MEDS: IBUPROFEN 400 MG TABLET PO (14:39)
[2024-05-02 18:35] LABS: Anion Gap 10.9 mEq/L (5-15); Blood Urea Nitrogen 16 mg/dl (7-17); Calcium 9.1 mg/dl (8.4-10.2); Carbon Dioxide 31 mmol/L (22.0-30.0); Chloride 87 mmol/L (98-107); Creatinine Clearance Estimated 41 mL/min (50-200); Estimated Glomerular Filt Rate 82 ml/min (>60); GFR (African American) 99 ML/MIN (>60); Glucose 106 mg/dl (74-100); Potassium 3.9 mmoL/L (3.5-5.1); Sodium 125 mmol/L (136-145)
[2024-05-02] MEDS: ROPINIROLE 1MG TABLET 2 MG PO (20:24)
[2024-05-02] MEDS: PANTOPRAZOLE 40MG TABLET 40 MG PO (20:24)
--- NOTE | 2024-05-02 20:32 | CA_ITS ---
FINAL REPORT TECHNIQUE: Ultrasound images of the kidneys were obtained. Duplex Doppler of the renal arteries, RAR and RI also obtained. Spectral analysis was performed. CLINICAL HISTORY: HTN, CKD III COMPARISON: None FINDINGS: Aortic velocity is measured at 142 cm/sec. The right kidney measures 9.2 cm in length. No hydronephrosis, cortical thinning, or mass. RAR is 0.73-0.78. Peak systolic velocity is 163 cm/sec. RI is 1.15. No evidence of renal artery stenosis or chronic renal disease. The left kidney measures 9.7 cm in length. No hydronephrosis, cortical thinning, or mass. RAR is 0.71-0.76. Peak systolic velocity is 150 cm/sec. RI is 1.06. No evidence of renal artery stenosis or chronic renal disease. IMPRESSION: Normal renal ultrasound. Normal RI bilaterally. Reviewed, Interpreted and Dictated by Jose Barnes MD Transcribed by Asuncion Kessler Authenticated and [facility]
[2024-05-02] MEDS: KETOROLAC 30MG/ML VIAL 15 MG IV (23:05)
[2024-05-03] VITALS (10 sets, daily range): BP systolic 112–159; BP diastolic 54–76; PULSE 59–90; RESP 14–20; TEMP 36.8–37.2; O2SAT 96–98; BMI 19.3
[2024-05-03] MEDS: IBUPROFEN 400 MG TABLET PO (03:32)
--- NOTE | 2024-05-03 05:26 | PC.NURSE ---
Pt. is alert and orientated x 4. Does have brief periods of confusion. Pt. laying in bed. has a hard time moving due to generalized pain. Pt. was c/o BUE, BLE, and low back pain. Pt. medicated with Tylenol. Ibuprofen and Toradol. with minimal relief, Pt. repositioned. with no change in pain. Vital signs stable. Personal items and call valentin in reach.
[2024-05-03 06:47] LABS: Alanine Aminotransferase 59 U/L (12-78); Albumin Level 4.2 g/dl (3.5-5.0); Alkaline Phosphatase 54 U/L (38-126); Anion Gap 12.3 mEq/L (5-15); Aspartate Amino Transferase 144 U/L (14-36); Bilirubin,Total 1.3 mg/dl (0.2-1.3); Blood Urea Nitrogen 16 mg/dl (7-17); Calcium 8.7 mg/dl (8.4-10.2); Carbon Dioxide 26 mmol/L (22.0-30.0); Chloride 86 mmol/L (98-107); Creatinine Clearance Estimated 40 mL/min (50-200); Estimated Glomerular Filt Rate 82 ml/min (>60); GFR (African American) 99 ML/MIN (>60); Globulin 2.1 g/dL (1.3-3.2); Glucose 96 mg/dl (74-100); Magnesium 1.6 mg/dl (1.6-2.3); Potassium 3.3 mmoL/L (3.5-5.1); Sodium 121 mmol/L (136-145); Total Protein,Serum 6.3 g/dl (6.3-8.2)
[2024-05-03 07:01] LABS: Basophils % 0.3 % (0.1-2.0); Eosinophils % 0.1 % (0.1-12.0); Hematocrit 37.4 % (37.0-47.0); Hemoglobin 13.4 g/dL (12.2-16.2); Lymphocytes # 0.9 K/mm3 (0.7-4.5); Mean Corpuscular HGB Conc 35.9 g/dL (31.8-35.4); Mean Corpuscular Hemoglobin 30.5 pg (27.0-31.2); Mean Platelet Volume 7.9 fl (7.4-10.4); Monocytes # 0.7 K/mm3 (0.1-1.0); Monocytes % 5.6 % (1.7-9.3); Neutrophils # 10.1 K/mm3 (1.8-7.8); Platelet Count 195 K/mm3 (142-424); Red Blood Count 4.39 M/mm3 (4.20-5.40); Red Cell Distribution Width 13.5 % (11.5-17.5); White Blood Count 11.7 K/mm3 (4.8-10.8)
[2024-05-03 07:11] LABS: MANUAL DIFFERENTIAL MANUAL DIFFERENTIAL (MANUAL DIFF)
[2024-05-03] MEDS: MAGNESIUM SULFATE IN WATER 2 GM/50 ML PIGGYBACK IV ×2 (08:04→08:54)
[2024-05-03] MEDS: POTASSIUM CHLORIDE 20MEQ TAB 40 MEQ PO ×2 (08:05→11:18)
[2024-05-03] MEDS: CARVEDILOL 6.25MG TABLET 6.25 MG PO (08:06)
[2024-05-03] MEDS: NIFEdipine XL 30MG TABLET 60 MG PO (08:06)
[2024-05-03] MEDS: OXYBUTYNIN 5MG TAB 5 MG PO ×2 (08:06→20:28)
[2024-05-03] MEDS: SODIUM CHLORIDE 1,000MG TABLET 1000 MG PO ×4 (08:06→20:28)
[2024-05-03] MEDS: GABAPENTIN 300MG CAPSULE 300 MG PO ×2 (08:07→20:28)
[2024-05-03] MEDS: BUSPIRONE HCL 5 MG TABLET PO ×2 (08:07→20:28)
[2024-05-03] MEDS: CITALOPRAM 20MG TABLET 20 MG PO (08:07)
[2024-05-03] MEDS: ENOXAPARIN 40MG/0.4ML SYRINGE 40 MG SUBCUT (08:07)
[2024-05-03] MEDS: ASPIRIN 81MG CHEWABLE TABLET 81 MG PO (08:08)
[2024-05-03] MEDS: IRBESARTAN 150MG TAB 150 MG PO (08:52)
--- NOTE | 2024-05-03 09:56 | EXP.ACUTE.PN ---
Subjective *Date: 05/03/24 *Time: 18:17 Interval history: Patient confused this morning. Fatigued on exam. Slow to respond to questions. Stable on room air. Afebrile. Sodium decreased again this morning to 121. Poor p.o. intake over the past 24 hours. Tolerating p.o. medications however. Blood pressure better controlled. Medical Exam Vital signs and Labs for Last 24 Hours: Vital Signs Temp Pulse Pulse Pulse Resp BP BP 05/03/24 09:00 05/03/24 08:00 70 05/03/24 08:00 05/03/24 07:34 99.0 F 88 17 149/70 H 05/03/24 07:00 05/03/24 05:00 05/03/24 04:00 80 05/03/24 04:00 98.6 F 84 18 159/76 H 05/03/24 03:00 05/03/24 01:00 05/03/24 00:00 90 05/02/24 23:39 98.9 F 92 H 16 162/65 H 05/02/24 23:00 05/02/24 21:00 05/02/24 20:00 05/02/24 20:00 90 05/02/24 19:25 98.5 F 77 18 138/62 05/02/24 18:13 05/02/24 17:00 05/02/24 16:00 80 05/02/24 16:00 97.8 F 64 16 123/66 05/02/24 14:57 05/02/24 12:50 05/02/24 12:00 60 05/02/24 11:56 98.4 F 67 18 124/57 L 05/02/24 11:00 Pulse Ox O2 Del Method 05/03/24 09:00 Room Air 05/03/24 08:00 05/03/24 08:00 Room Air 05/03/24 07:34 98 Room Air 05/03/24 07:00 Room Air 05/03/24 05:00 Room Air 05/03/24 04:00 05/03/24 04:00 96 Room Air 05/03/24 03:00 Room Air 05/03/24 01:00 Room Air 05/03/24 00:00 05/02/24 23:39 96 Room Air 05/02/24 23:00 Room Air 05/02/24 21:00 Room Air 05/02/24 20:00 97 Room Air 05/02/24 20:00 05/02/24 19:25 97 Room Air 05/02/24 18:13 Room Air 05/02/24 17:00 Room Air 05/02/24 16:00 05/02/24 16:00 96 Room Air 05/02/24 14:57 Room Air 05/02/24 12:50 Room Air 05/02/24 12:00 05/02/24 11:56 92 L Room Air 05/02/24 11:00 Room Air Intake and Output 05/02/24 05/03/24 05/03/24 23:59 07:59 15:59 Intake Total 120 / 780 120 / 120 Output Total 450 / 1250 450 / 450 Balance -330 / -470 -330 / -330 Intake: Intake, Oral Amount 120 / 630 120 / 120 Output: Output, Urine Amount 450 / 1250 450 / 450 Other: Number of Unmeasured Voids 0 0 Weight 51.211 kg Patient Weight 05/03/24 23:59 Weight 51.211 kg Laboratory Results - last 24 hr 05/01/24 16:00: Urine Color Yellow, Urine Appearance Clear, Urine pH 7.0, Ur Specific [place] 1.020, Urine Protein Negative, Urine Glucose (UA) Negative, Urine Ketones Negative, Urine Blood Trace-i, Urine Nitrate Negative, Urine Bilirubin Negative, Urine Urobilinogen 0.2, Ur Leukocyte Esterase Negative, Urine RBC Occasional, Urine WBC 5-10, Ur Squamous Epith Cells 3-5, Urine Bacteria 3+ 05/02/24 18:16: Sodium 125 L, Potassium 3.9, Chloride 87 L, Carbon Dioxide 31 H, Anion Gap 10.9, BUN 16, Creatinine 0.70, Estimated Creat Clear 41, Estimated GFR 82, Est GFR ( Amer) 99, Glucose 106 H, Calcium 9.1 05/03/24 06:11: WBC 11.7 H D, RBC 4.39, Hgb 13.4, Hct 37.4, MCV 85.0, MCH 30.5, MCHC 35.9 H, RDW 13.5, Plt Count 195, MPV 7.9, Neut % (Auto) 86.0 H, Lymph % (Auto) 8.0 L, [place] % (Auto) 5.6, Eos % (Auto) 0.1, Baso % (Auto) 0.3, Neut # (Auto) 10.1 H, Lymph # (Auto) 0.9, [place] # (Auto) 0.7, Eos # (Auto) 0.0, Baso # (Auto) 0.0, Sodium 121 L, Potassium 3.3 L, Chloride 86 L, Carbon Dioxide 26, Anion Gap 12.3, BUN 16, Creatinine 0.70, Estimated Creat Clear 40, Estimated GFR 82, Est GFR ( Amer) 99, Glucose 96, Calcium 8.7, Magnesium 1.6, Total Bilirubin 1.3, AST 144 H D, ALT 59 D, Alkaline Phosphatase 54, Total Protein 6.3, Albumin 4.2, Globulin 2.1, Albumin/Globulin Ratio 2.0 H I & O for Labs for Last 24 Hours: Intake & Output 04/30/24 05/01/24 05/02/24 05/03/24 23:59 23:59 23:59 23:59 Intake Total 202.5 / 202.5 800 / 1040 780 / 780 120 / 120 Output Total 600 / 1150 1350 / 1350 1250 / 1250 450 / 450 Balance -397.5 / -947.5 -550 / -310 -470 / -470 -330 / -330 Weight 52.277 kg 53.025 kg 51.98 kg 51.211 kg Microbiology Reports for the Last 24 Hours: Microbiology 05/01/24 16:00 Urine,Clean Catch Urine Culture - Preliminary Gram Positive Cocci 04/30/24 09:20 Blood Blood Culture - Preliminary NO GROWTH AFTER 48 HOURS 04/30/24 09:20 Blood Blood Culture - Preliminary NO GROWTH AFTER 48 HOURS Constitutional: Present no acute distress, thin, chronically ill appearing and somnolent Head: Present atraumatic and normocephalic Neck: Present normal inspection Respiratory: Present normal respiratory effort; Absent rhonchi, wheezes or crackles Cardiac: Present Reg Rate and Rhythm GI: Present soft and normal bowel sounds; Absent distention or tenderness Extremities: Present normal inspection and full ROM; Absent tenderness or edema Skin: Present intact; Absent erythema Neuro: Present Grossly Intact, alert, awake and moves all extremities; Absent oriented x 3 Comment:: Somewhat rigid and lower extremities, slow to respond to questions, more confused than yesterday Assessment and Plan *Assessment and plan (1) Acute hyponatremia: Status: Acute Category: Medical Code(s): E87.1 - Hypo-osmolality and hyponatremia (2) Hypertensive emergency: Status: Acute Category: Medical Code(s): I16.1 - Hypertensive emergency (3) Declining functional status: Status: Acute Category: Medical Code(s): R53.81 - Other malaise (4) Lower extremity pain: Status: Acute Category: Medical Code(s): M79.606 - Pain in leg, unspecified (5) Urinary tract infection: Status: Suspected Qualifiers: Urinary tract infection type: acute pyelonephritis Qualified Code(s): N10 - Acute pyelonephritis Category: Medical Code(s): N39.0 - Urinary tract infection, site not specified (6) Physical deconditioning: Status: Acute Category: Medical Code(s): R53.81 - Other malaise (7) Restless leg syndrome: Status: Acute Category: Medical Code(s): G25.81 - Restless legs syndrome Plan Birgit Estrada is a 74-year-old female with a medical history significant for hypertension, anxiety/depression, GERD who presents with worsening lower extremity pain. Patient and son state that she has had a longstanding history of lower extremity pain, specifically in the calfs and feet that have gotten worse over the past few days. Increased debility. Found to have significant hypertension. Blood pressure showing improvement. Sodium worsening however, symptomatic with confusion, weakness, rigidity. Continues to require inpatient management. Deferring on placement pending improvement in sodium. Escalating level of care to stepdown with initiation of hypertonic saline. Problems addressed as follows: #Hyponatremia - On admission sodium was 135, has gradually decreased and over the past 48 hours dropped from 134-121 -Patient has become more symptomatic with confusion and weakness. Initiate hypertonic saline at rate of 25 cc an hour. Serial BMP every 6 hours monitoring for improvement. -Urine sodium earlier this year with previous episode was low at 25, ordered this morning, urine sodium elevated at 125. Concerning for component of SIADH. Will fluid restrict to 1500 cc today. -Holding diuretics -Repeat CBC, CMP, magnesium ordered for the morning. -Continue oral sodium replacement with 1 g 4 times a day -High risk for decompensation, necessitating close monitoring. #Hypertensive emergency, resolved #Hypertension ? Initial BP 210/82 with proteinuria. Had been feeling weak, dizzy, with floaters for a few days prior to admission. ? Head CT did not show acute findings. ? Blood pressure improved, this was 120-130 - Continue irbesartan 150 mg daily, nifedipine 60 mg daily, decrease carvedilol to 3.125 mg twice daily - Leg pain may be intermittently contributing to elevated blood pressures, however pain better today. -Echo reviewed, EF normal. Renal duplex obtained, formal read pending #Bilateral feet pain #Suspected restless leg syndrome - Has had on and off pain in bilateral calves and feet, worse over the past few days. Gabapentin 200 mg at home has not been efficacious recently. - Outpatient workup with neurology seemed to have not suggested sciatica or abnormal nerve conduction studies, though patient had a fall this year requiring 100 day SNF rehab. - May be secondary to restless legs syndrome. Iron studies are normal. ? Continue ropinirole 2 mg nightly, continue gabapentin 300 mg twice daily. - Pending venous, aterial duplexes to rule ot DVT and PAD claudication respectively. Patient could not tolerate arterial duplex however, though suspicion is low for PAD claudication and we can defer at this time. #Physical deconditioning ? PT/OT consulted, recommended SNF. Case management assisting with placement options. Has been graciously accepted to rehab, awaiting medical stability. #UTI ? Patient complains of dysuria today. ? Follow-up UA, UC. ? Ceftriaxone day 3/5. -Urine culture growing gram-positive cocci. Awaiting sensitivity and speciation. #Anxety/depression: Home Buspar, Lexapro. #GERD: Home Protonix. FULL CODE Lovenox 40mg Regular diet
[2024-05-03 10:02] LABS: Lymphocytes % 12 % (10-50); Monocytes % 4 % (2-9); Neutrophils % 84 % (42-76); Platelet Estimate Normal; RBC Morphology Normal; Total Cells Counted 100
[2024-05-03] MEDS: CEFTRIAXONE 1 GM 1 GM in 0.9 % SODIUM CHLORIDE 50 ML IV (10:17)
[2024-05-03] MEDS: SODIUM CHLORIDE 3 % 500 ML 25 ML IV (10:55)
[2024-05-03 12:05] LABS: Chloride 86 mmol/L (98-107); Sodium 120 mmol/L (136-145)
[2024-05-03 12:06] LABS: Potassium 3.4 mmoL/L (3.5-5.1)
[2024-05-03 12:08] LABS: Blood Urea Nitrogen 20 mg/dl (7-17); Creatinine Clearance Estimated 40 mL/min (50-200); Estimated Glomerular Filt Rate 70 ml/min (>60); GFR (African American) 85 ML/MIN (>60)
[2024-05-03 12:09] LABS: Anion Gap 11.4 mEq/L (5-15); Calcium 8.6 mg/dl (8.4-10.2); Carbon Dioxide 26 mmol/L (22.0-30.0); Glucose 127 mg/dl (74-100)
--- NOTE | 2024-05-03 17:35 | PC.NURSE ---
pt a&ox4. pt has been up to the chair majority of the shift. pt appears to have stiffness in BUE and BLE. PT/OT has worked with pt today. bp and hr has remained WNL. 3% NS infusing at 30ml/hr due to hyponatremia. family at bedside.. call light within reach. no complaints or needs at this time.
[2024-05-03 18:08] LABS: Chloride 92 mmol/L (98-107); Potassium 4.5 mmoL/L (3.5-5.1); Sodium 123 mmol/L (136-145)
[2024-05-03 18:11] LABS: Anion Gap 8.5 mEq/L (5-15); Blood Urea Nitrogen 23 mg/dl (7-17); Calcium 8.5 mg/dl (8.4-10.2); Carbon Dioxide 27 mmol/L (22.0-30.0); Creatinine Clearance Estimated 40 mL/min (50-200); Estimated Glomerular Filt Rate 70 ml/min (>60); GFR (African American) 85 ML/MIN (>60); Glucose 113 mg/dl (74-100)
--- NOTE | 2024-05-03 18:34 | PC.NURSE ---
pt has been in the chair majority of the shift. pt offered to go to bed, and pt stated that she would like to stay in the chair until about 9:00 .
[2024-05-03] MEDS: PANTOPRAZOLE 40MG TABLET 40 MG PO (20:28)
[2024-05-03] MEDS: CARVEDILOL 6.25MG TABLET 3.125 MG PO (20:28)
[2024-05-03] MEDS: ROPINIROLE 1MG TABLET 2 MG PO (20:29)
[2024-05-03] MEDS: ACETAMINOPHEN 325MG TAB 650 MG PO (21:30)
--- NOTE | 2024-05-03 23:07 | EXP.EVENT.NO ---
23:00 received phone call from the nurse on the floor that the patient was complaining of severe leg pain restlessness and could not sleep, Tylenol had been given without any effect Plan. I have talked with the nurse will try Toradol 15 mg IV give that about 20 minutes to work if it has not worked we will try also morphine 2 mg. To help with sleep also have ordered melatonin 5 to be given as needed at at bedtime. 12:15 lab noted sodium has improved to 126.
[2024-05-03] MEDS: MELATONIN 5MG TABLET 5 MG PO (23:09)
[2024-05-03] MEDS: KETOROLAC 30MG/ML VIAL 15 MG IV (23:09)
[2024-05-03] MEDS: ONDANSETRON 4MG/2ML VIAL 4 MG IV (23:13)
[2024-05-03] MEDS: MORPHINE 2MG/ML SYRINGE 2 MG IV (23:13)
--- NOTE | 2024-05-03 23:29 | PC.NURSE ---
Patient c/o increased BLE pain and appears to be sundowing r/t confusion, pulling off monitoring devices, and restlessness. Virgilio Banda APRN notified of changes and 03/23 pain. New orders placed and medicated patient per AUG. Patient felt better with manual massage to legs, so placed thigh high SCD's and patient stated this helped alot. Patient is now resting comfortably. Equal chest rise and fall. VSS, NAD. SD care continued.
[2024-05-03 23:55] LABS: Chloride 97 mmol/L (98-107); Potassium 4.1 mmoL/L (3.5-5.1); Sodium 126 mmol/L (136-145)
[2024-05-03 23:58] LABS: Anion Gap 7.1 mEq/L (5-15); Blood Urea Nitrogen 22 mg/dl (7-17); Carbon Dioxide 26 mmol/L (22.0-30.0); Creatinine Clearance Estimated 40 mL/min (50-200); Estimated Glomerular Filt Rate 70 ml/min (>60); GFR (African American) 85 ML/MIN (>60)
[2024-05-03 23:59] LABS: Calcium 8.2 mg/dl (8.4-10.2); Glucose 100 mg/dl (74-100)
[2024-05-04] VITALS (10 sets, daily range): BP systolic 106–165; BP diastolic 52–72; PULSE 57–79; RESP 12–18; TEMP 36.6–36.9; O2SAT 92–100; BMI 19.3
--- NOTE | 2024-05-04 01:10 | PC.NURSE ---
While patient is sleeping, her oxygen is maintaining 87%-92% on RA. Placed patient on 2L/NC and notified Melisa [employer] administrator. Patient tolerating 2L/NC well with saturations >94%
--- NOTE | 2024-05-04 04:27 | PC.NURSE ---
Patient started out shift with c/o increased pain to her BLE. She began to have acute symptoms along with this pain. She was medicated per AUG and has since slept well throughout the night. She was started on 2L/NC for acute hypoxia while sleeping, and has since tolerated with saturations >94%. SCDs were placed on patient which she reports allowed her legs to relax more. Heart and lung sounds WNL. VSS otherwise, NAD. SD care continued.
[2024-05-04 06:31] LABS: Basophils % 0.3 % (0.1-2.0); Eosinophils % 0.4 % (0.1-12.0); Hematocrit 32.8 % (37.0-47.0); Lymphocytes # 1.1 K/mm3 (0.7-4.5); Lymphocytes % 11.6 % (10-50); Mean Corpuscular HGB Conc 35.3 g/dL (31.8-35.4); Mean Corpuscular Hemoglobin 30.3 pg (27.0-31.2); Mean Platelet Volume 8.1 fl (7.4-10.4); Monocytes # 0.6 K/mm3 (0.1-1.0); Monocytes % 7.1 % (1.7-9.3); Neutrophils # 7.3 K/mm3 (1.8-7.8); Neutrophils % 80.6 % (37.0-80.0); Platelet Count 196 K/mm3 (142-424); Red Blood Count 3.82 M/mm3 (4.20-5.40)
[2024-05-04 06:48] LABS: Alanine Aminotransferase 76 U/L (12-78); Albumin Level 3.2 g/dl (3.5-5.0); Albumin/Globulin Ratio 1.6 (1.1-1.8); Alkaline Phosphatase 57 U/L (38-126); Anion Gap 8.9 mEq/L (5-15); Aspartate Amino Transferase 144 U/L (14-36); Bilirubin,Total 0.7 mg/dl (0.2-1.3); Blood Urea Nitrogen 24 mg/dl (7-17); Calcium 8.4 mg/dl (8.4-10.2); Carbon Dioxide 25 mmol/L (22.0-30.0); Chloride 100 mmol/L (98-107); Creatinine Clearance Estimated 40 mL/min (50-200); Estimated Glomerular Filt Rate 70 ml/min (>60); GFR (African American) 85 ML/MIN (>60); Glucose 84 mg/dl (74-100); Magnesium 2.2 mg/dl (1.6-2.3); Potassium 3.9 mmoL/L (3.5-5.1); Sodium 130 mmol/L (136-145); Total Protein,Serum 5.2 g/dl (6.3-8.2)
[2024-05-04 07:07] LABS: Hemoglobin 11.5 g/dL (12.2-16.2)
[2024-05-04] MEDS: CEFTRIAXONE 1 GM 1 GM in 0.9 % SODIUM CHLORIDE 50 ML IV (09:30)
[2024-05-04] MEDS: CITALOPRAM 20MG TABLET 20 MG PO (09:57)
[2024-05-04] MEDS: GABAPENTIN 300MG CAPSULE 300 MG PO ×2 (09:57→20:28)
[2024-05-04] MEDS: IRBESARTAN 150MG TAB 150 MG PO (09:57)
[2024-05-04] MEDS: NIFEdipine XL 30MG TABLET 60 MG PO (09:57)
[2024-05-04] MEDS: BUSPIRONE HCL 5 MG TABLET PO ×2 (09:57→20:28)
[2024-05-04] MEDS: ASPIRIN 81MG CHEWABLE TABLET 81 MG PO (09:58)
[2024-05-04] MEDS: OXYBUTYNIN 5MG TAB 5 MG PO ×2 (09:58→20:28)
[2024-05-04] MEDS: SODIUM CHLORIDE 1,000MG TABLET 1000 MG PO ×4 (09:58→20:28)
[2024-05-04] MEDS: ENOXAPARIN 40MG/0.4ML SYRINGE 40 MG SUBCUT (09:58)
[2024-05-04] MEDS: POLYETHYLENE GLYCOL 3350 17 GM PACKET PO (10:41)
[2024-05-04] MEDS: SENNOSIDES 8.6MG/DOCUSATE 50MG TABLET 1 TAB PO ×2 (10:42→20:28)
--- NOTE | 2024-05-04 10:42 | P.PN_ITS ---
Subjective *Date: 05/04/24 *Time: 10:42 Interval history: Improvement Tatian this morning. Alert and oriented x 3. Son at bedside, patient not quite back to baseline but showing improvement. Sodium improving. Stable on room air. No nausea or vomiting. Working with therapy, still remains rigid but slight improvement Medical Exam Vital signs and Labs for Last 24 Hours: Vital Signs Temp Pulse Pulse Resp BP Pulse Ox O2 Del Method 05/04/24 10:00 57 L 18 132/60 97 Room Air 05/04/24 08:48 Room Air 05/04/24 08:00 97.8 F 05/04/24 07:49 Room Air 05/04/24 06:00 98.1 F 63 17 117/52 L 98 Nasal Cannula 05/04/24 04:00 70 05/04/24 04:00 98.3 F 65 14 119/62 97 Nasal Cannula 05/04/24 02:00 98.3 F 68 12 118/66 97 Nasal Cannula 05/04/24 00:00 70 05/04/24 00:00 98.3 F 68 14 116/54 L 92 L Room Air 05/03/24 22:00 73 16 134/59 L 96 Room Air 05/03/24 20:00 70 05/03/24 20:00 98.2 F 05/03/24 20:00 98.8 F 64 14 129/59 L 97 Room Air 05/03/24 18:50 Room Air 05/03/24 17:00 Room Air 05/03/24 16:00 60 05/03/24 16:00 98 Room Air 05/03/24 16:00 64 16 126/67 96 Room Air 05/03/24 15:00 Room Air 05/03/24 14:00 59 L 14 117/66 96 Room Air 05/03/24 13:00 Room Air 05/03/24 12:00 70 05/03/24 12:00 82 20 112/54 L 97 Room Air 05/03/24 12:00 63 17 112/54 L 96 Room Air 05/03/24 11:28 60 16 117/58 L 97 Room Air 05/03/24 11:00 Room Air O2 Flow Rate 05/04/24 10:00 05/04/24 08:48 05/04/24 08:00 05/04/24 07:49 05/04/24 06:00 2 05/04/24 04:00 05/04/24 04:00 2 05/04/24 02:00 2 05/04/24 00:00 05/04/24 00:00 05/03/24 22:00 05/03/24 20:00 05/03/24 20:00 05/03/24 20:00 05/03/24 18:50 05/03/24 17:00 05/03/24 16:00 05/03/24 16:00 05/03/24 16:00 05/03/24 15:00 05/03/24 14:00 05/03/24 13:00 05/03/24 12:00 05/03/24 12:00 05/03/24 12:00 05/03/24 11:28 05/03/24 11:00 Intake and Output 05/03/24 05/04/24 05/04/24 23:59 07:59 15:59 Intake Total 320 / 560 240 / 477 237 / 477 Output Total 350 / 875 75 / 225 150 / 225 Balance -30 / -315 165 / 252 87 / 252 Intake: Intake, Oral Amount 160 / 280 0 / 237 237 / 237 Intake, Total IV Amount 130 / 130 Sodium Chloride 3 % 500 ml @ 30 130 / 130 mls/hr IV .[id number] ONE Rx#: [id number] Infusion Intake 30 / 150 240 / 240 Sodium Chloride 3 % 500 ml @ 30 30 / 150 240 / 240 mls/hr IV .[id number] ONE Rx#: [id number] Output: Output, Urine Amount 350 / 875 75 / 225 150 / 225 Other: Number of Unmeasured Voids 0 1 0 Weight 51.211 kg Patient Weight 05/04/24 23:59 Weight 51.211 kg Laboratory Results - last 24 hr 05/03/24 11:46: Sodium 120 L, Potassium 3.4 L, Chloride 86 L, Carbon Dioxide 26, Anion Gap 11.4, BUN 20 H, Creatinine 0.80, Estimated Creat Clear 40, Estimated GFR 70, Est GFR ( Amer) 85, Glucose 127 H D, Calcium 8.6 05/03/24 17:53: Sodium 123 L, Potassium 4.5 D, Chloride 92 L, Carbon Dioxide 27, Anion Gap 8.5, BUN 23 H, Creatinine 0.80, Estimated Creat Clear 40, Estimated GFR 70, Est GFR ( Amer) 85, Glucose 113 H, Calcium 8.5 05/03/24 23:42: Sodium 126 L, Potassium 4.1, Chloride 97 L, Carbon Dioxide 26, Anion Gap 7.1, BUN 22 H, Creatinine 0.80, Estimated Creat Clear 40, Estimated GFR 70, Est GFR ( Amer) 85, Glucose 100, Calcium 8.2 L 05/04/24 05:25: WBC 9.0, RBC 3.82 L, Hgb 11.5 L D, Hct 32.8 L, MCV 86.0, MCH 30.3, MCHC 35.3, RDW 14.0, Plt Count 196, MPV 8.1, Neut % (Auto) 80.6 H, Lymph % (Auto) 11.6, Mccracken % (Auto) 7.1, Eos % (Auto) 0.4, Baso % (Auto) 0.3, Neut # (Auto) 7.3, Lymph # (Auto) 1.1, Mccracken # (Auto) 0.6, Eos # (Auto) 0.0, Baso # (Auto) 0.0, Sodium 130 L, Potassium 3.9, Chloride 100, Carbon Dioxide 25, Anion Gap 8.9, BUN 24 H, Creatinine 0.80, Estimated Creat Clear 40, Estimated GFR 70, Est GFR ( Amer) 85, Glucose 84, Calcium 8.4, Magnesium 2.2 D, Total Bilirubin 0.7, AST 144 H, ALT 76 D, Alkaline Phosphatase 57, Total Protein 5.2 L, Albumin 3.2 L D, Globulin 2.0, Albumin/Globulin Ratio 1.6 I & O for Labs for Last 24 Hours: Intake & Output 05/01/24 05/02/24 05/03/24 05/04/24 23:59 23:59 23:59 23:59 Intake Total 800 / 1040 780 / 780 440 / 560 477 / 477 Output Total 1350 / 1350 1250 / 1250 800 / 875 225 / 225 Balance -550 / -310 -470 / -470 -360 / -315 252 / 252 Weight 53.025 kg 51.98 kg 51.211 kg 51.211 kg Microbiology Reports for the Last 24 Hours: Microbiology 04/30/24 09:20 Blood Blood Culture - Preliminary NO GROWTH AFTER 4 DAYS 04/30/24 09:20 Blood Blood Culture - Preliminary NO GROWTH AFTER 4 DAYS 05/01/24 16:00 Urine,Clean Catch Urine Culture - Preliminary Gram Positive Cocci Constitutional: Present no acute distress, thin, chronically ill appearing and somnolent Head: Present atraumatic and normocephalic Neck: Present normal inspection Respiratory: Present normal respiratory effort; Absent rhonchi, wheezes or crackles Cardiac: Present Reg Rate and Rhythm GI: Present soft and normal bowel sounds; Absent distention or tenderness Extremities: Present normal inspection and full ROM; Absent tenderness or edema Comment:: Mildly rigid extremities Skin: Present intact; Absent erythema Neuro: Present Grossly Intact, alert, awake, oriented x 3 and moves all extremities Comment:: Somewhat rigid in upper and lower extremities, slow to respond to questions but improved mentation. Alert and oriented today Assessment and Plan *Assessment and plan (1) Acute hyponatremia: Status: Acute Category: Medical Code(s): E87.1 - Hypo-osmolality and hyponatremia (2) Hypertensive emergency: Status: Acute Category: Medical Code(s): I16.1 - Hypertensive emergency (3) Declining functional status: Status: Acute Category: Medical Code(s): R53.81 - Other malaise (4) Lower extremity pain: Status: Acute Category: Medical Code(s): M79.606 - Pain in leg, unspecified (5) Urinary tract infection: Status: Suspected Qualifiers: Urinary tract infection type: acute pyelonephritis Qualified Code(s): N10 - Acute pyelonephritis Category: Medical Code(s): N39.0 - Urinary tract infection, site not specified (6) Physical deconditioning: Status: Acute Category: Medical Code(s): R53.81 - Other malaise (7) Restless leg syndrome: Status: Acute Category: Medical Code(s): G25.81 - Restless legs syndrome Kavitha Estrada is a 74-year-old female with a medical history significant for hypertension, anxiety/depression, GERD who presents with worsening lower extremity pain. Patient and son state that she has had a longstanding history of lower extremity pain, specifically in the calfs and feet that have gotten worse over the past few days. Increased debility. Found to have significant hypertension. Blood pressure showing improvement. Sodium improving. 130 this morning. Still remains weak and rigid but improving mentation. Continue to monitor overnight. Continues to require inpatient management. Anticipate discharge to rehab tomorrow. Problems addressed as follows: #Hyponatremia, suspected SIADH - On admission sodium was 135, dropped to 121 yesterday morning. Improved to 130 this morning. Corrected within appropriate range of 8 to 10 mEq/day. Discontinue hypertonic saline. -Improving mentation, remains weak and rigid however. Continue oral supplementation with 1 g 4 times a day. Continue fluid restriction of 1500 cc -Repeat CBC, CMP, magnesium ordered for the morning. -BMP ordered every 8 hours through today to monitor for sodium stability/correction. -High risk for decompensation, necessitating close monitoring. #Hypertensive emergency, resolved #Hypertension ? Initial BP 210/82 with proteinuria. Had been feeling weak, dizzy, with floaters for a few days prior to admission. ? Head CT did not show acute findings. ? Blood pressure hold, systolic 130-140. Given bradycardia, will hold carvedilol today. - Continue irbesartan 150 mg daily, nifedipine 60 mg daily - Leg pain may be intermittently contributing to elevated blood pressures, h owever pain better today. -Echo reviewed, EF normal. Renal duplex obtained, formal read pending #Bilateral feet pain #Suspected restless leg syndrome - Has had on and off pain in bilateral calves and feet, worse over the past few days. Gabapentin 200 mg at home has not been efficacious recently. - Outpatient workup with neurology seemed to have not suggested sciatica or abnormal nerve conduction studies, though patient had a fall this year requiring 100 day SNF rehab. - May be secondary to restless legs syndrome. Iron studies are normal. ? Continue ropinirole 2 mg nightly, continue gabapentin 300 mg twice daily. - Pending venous, aterial duplexes to rule ot DVT and PAD claudication respectively. Patient could not tolerate arterial duplex however, though suspic ion is low for PAD claudication and we can defer at this time. #Physical deconditioning ? PT/OT consulted, recommended SNF. Case management assisting with placement options. Has been graciously accepted to rehab, awaiting medical stability. #UTI ? Patient complains of dysuria today. ? Follow-up UA, UC. ? Ceftriaxone day 4/5. -Urine culture growing gram-positive cocci. Awaiting sensitivity and speciation. #Anxety/depression: Home Buspar, Lexapro. #GERD: Home Protonix. FULL CODE Lovenox 40mg Regular diet
[2024-05-04] MEDS: ACETAMINOPHEN 325MG TAB 650 MG PO ×2 (11:05→17:51)
[2024-05-04 14:35] LABS: Anion Gap 7.8 mEq/L (5-15); Blood Urea Nitrogen 27 mg/dl (7-17); Calcium 8.6 mg/dl (8.4-10.2); Carbon Dioxide 29 mmol/L (22.0-30.0); Chloride 97 mmol/L (98-107); Creatinine Clearance Estimated 40 mL/min (50-200); Estimated Glomerular Filt Rate 61 ml/min (>60); GFR (African American) 74 ML/MIN (>60); Glucose 100 mg/dl (74-100); Potassium 3.8 mmoL/L (3.5-5.1); Sodium 130 mmol/L (136-145)
--- NOTE | 2024-05-04 15:37 | PC.NURSE ---
patient is a/o x4 with periods of acute confusion. she is currently on room air and tolerating well, o2 sats have been inn high 90s. she has rested majority of day. thigh high SCDS to BLE are in place. she c/o leg/thigh pain earlier in shift, treated per AUG. bowel regimen has been started due to pt not having a BM in a few days . no further requests at this time. call light within reach
[2024-05-04] MEDS: MORPHINE 2MG/ML SYRINGE 2 MG IV (19:27)
[2024-05-04] MEDS: CARVEDILOL 3.125MG TABLET 3.125 MG PO (20:28)
[2024-05-04] MEDS: ROPINIROLE 1MG TABLET 2 MG PO (20:28)
[2024-05-04] MEDS: PANTOPRAZOLE 40MG TABLET 40 MG PO (20:28)
[2024-05-04 22:42] LABS: Chloride 97 mmol/L (98-107)
[2024-05-04 22:43] LABS: Sodium 130 mmol/L (136-145)
[2024-05-04 22:45] LABS: Blood Urea Nitrogen 25 mg/dl (7-17); Creatinine Clearance Estimated 40 mL/min (50-200); Estimated Glomerular Filt Rate 70 ml/min (>60); GFR (African American) 85 ML/MIN (>60)
[2024-05-04 22:46] LABS: Calcium 8.5 mg/dl (8.4-10.2); Carbon Dioxide 28 mmol/L (22.0-30.0); Glucose 89 mg/dl (74-100)
[2024-05-05] VITALS: BP 133/65; PULSE 66; PULSE 70; RESP 16; TEMP 36.8; O2SAT 95
[2024-05-05] MEDS: IBUPROFEN 400 MG TABLET PO (03:18)
[2024-05-05 04:00] VITALS: BP 147/70; PULSE 71; PULSE 79; RESP 18; TEMP 36.4; O2SAT 96; BMI 19.6
[2024-05-05] MEDS: ACETAMINOPHEN 325MG TAB 650 MG PO (04:31)
--- NOTE | 2024-05-05 04:49 | PC.NURSE ---
74 yo female pt is A/O X 3. She has not been OOB this shift and has been 2 assist for personal care, using brief and purwick. Pt has been medicated with Morphine, Ibuprofen and Acetaminophen this shift for continued complaints of pain to her legs, rated at 10 at times. Pt did sleep after morphine was given earlier in the shift. Pt asking for pain meds this am and wanting something to just knock me out . Nurse explained the plans for transfer to [facility] today for rehab with the goal being to strengthen and rehab pt so she can return home. Explained reasons for trying to manage pain with tylenol and/or ibuprofen. VS have been WNL for pt. NSR per telemetry.
[2024-05-05 06:48] LABS: Basophils % 0.5 % (0.1-2.0); Eosinophils # 0.3 K/mm3 (0.0-0.4); Eosinophils % 2.8 % (0.1-12.0); Hematocrit 34.6 % (37.0-47.0); Hemoglobin 12.3 g/dL (12.2-16.2); Lymphocytes # 1.2 K/mm3 (0.7-4.5); Lymphocytes % 13.5 % (10-50); Mean Corpuscular HGB Conc 35.5 g/dL (31.8-35.4); Mean Corpuscular Hemoglobin 30.8 pg (27.0-31.2); Mean Corpuscular Volume 86.7 fl (81-99); Mean Platelet Volume 8.2 fl (7.4-10.4); Monocytes # 0.7 K/mm3 (0.1-1.0); Monocytes % 7.5 % (1.7-9.3); Neutrophils # 6.7 K/mm3 (1.8-7.8); Neutrophils % 75.7 % (37.0-80.0); Platelet Count 178 K/mm3 (142-424); Red Blood Count 3.99 M/mm3 (4.20-5.40); Red Cell Distribution Width 13.9 % (11.5-17.5); White Blood Count 8.8 K/mm3 (4.8-10.8)
[2024-05-05 07:02] LABS: Alanine Aminotransferase 97 U/L (12-78); Albumin Level 3.5 g/dl (3.5-5.0); Albumin/Globulin Ratio 1.8 (1.1-1.8); Alkaline Phosphatase 107 U/L (38-126); Aspartate Amino Transferase 152 U/L (14-36); Blood Urea Nitrogen 20 mg/dl (7-17); Calcium 8.4 mg/dl (8.4-10.2); Carbon Dioxide 23 mmol/L (22.0-30.0); Chloride 99 mmol/L (98-107); Creatinine Clearance Estimated 41 mL/min (50-200); Estimated Glomerular Filt Rate 98 ml/min (>60); GFR (African American) 118 ML/MIN (>60); Glucose 80 mg/dl (74-100); Magnesium 1.6 mg/dl (1.6-2.3); Sodium 127 mmol/L (136-145); Total Protein,Serum 5.5 g/dl (6.3-8.2)
--- NOTE | 2024-05-05 07:33 | EXP.DC.SUM ---
General Admission date:: 04/30/24 Discharge date: 05/05/24 HPI HPI HPI: Birgit Estrada is a 74-year-old female with a medical history significant for hypertension, anxiety/depression, GERD who presents with worsening lower extremity pain. Patient and son state that she has had a longstanding history of lower extremity pain, specifically in the calfs and feet that have gotten worse over the past few days. Patient was unable to sleep last night due to pain. Son states she has been able to ambulate just a few days ago, and living independently. Of note, patient had a fall earlier this year with significant debility of right hip without fracture, discharged to nursing facility for approximately 100 days. Son states she has been worked up for her bilateral leg pain by neurology who started her on gabapentin. She states that it had been helping until the last few days and which has gotten worse. On my interview, patient did not have significant pain and was pleasant and conversational eating her lunch. Of note, patient's blood pressure was 210/82 in the ED with signs of endorgan damage with proteinuria. Patient also states she has been seeing floaters recently. Case discussed with ED provider and decision was made to admit patient for hypertensive emergency. Hospital Course Hospital Course Hospital Course: Birgit Estrada is a 74-year-old female with a medical history significant for hypertension, anxiety/depression, GERD who presents with worsening lower extremity pain. Patient and son state that she has had a longstanding history of lower extremity pain, had stiffness in her legs get worse since her passing. While rigidity has been waxing and waning during admission, she is able to participate with therapy. Blood pressure doing better on current regimen. Sodium remaining stable around 130. Patient still weak necessitating placement in rehab. Graciously excepted by [facility] for further management. Discharge to their care today. Problems addressed as follows: #Hyponatremia, suspected SIADH - On admission sodium was 135, dropped to 121 during admission. Showed improvement with hypertonic saline and oral sodium chloride replacement. 127 on morning of discharge. Within patient's range when reviewing her labs over the past year. Recommend continuing oral sodium replacement with 1 g 4 times a day. Would benefit from repeat CBC, CMP, magnesium in 3 days to monitor for stability. Also concern for component of drug-induced SIADH. Stopping antidepressants at this time. Recommend continuing fluid restriction of 1500 cc pending follow-up labs. If sodium normalizing, can consider liberalizing fluid over the next several days to week. -Mentation at baseline. Alert and oriented x 4. #Hypertensive emergency, resolved #Hypertension ? Initial BP 210/82 with proteinuria. Had been feeling weak, dizzy, with floaters for a few days prior to admission. Head CT did not show acute findings. Aggressive adjustments made to blood pressure regimen. Blood pressure is done well with systolics consistently less than 160. Plan to continue irbesartan 150 mg daily, nifedipine 60 mg daily, carvedilol 3.125 mg twice daily. Monitor for improvement with adjustment to antidepressant regimen. During admission, echo obtained with normal EF. Renal duplex obtained with no significant stenosis #Bilateral feet pain #Suspected restless leg syndrome - Has had on and off pain in bilateral calves and feet, wax and wane during admission. Gabapentin increased during admission. Continue 300 mg twice daily. Patient has stiffness. After review of patient's medications, concern for side effect from her antidepressants. In talking to her about onset of symptoms over the past year, they came on gradually after starting antidepressants and the passing of her . In light of the constellation of symptoms with stiffness and low sodium along with hypertension, while it is not classic serotonin syndrome, symptoms are suggestive enough to hold antidepressants at this time. Have discontinued BuSpar and SSRI. Recommend Xanax 0.25 mg twice daily for anxiety and stiffness. Monitor for improvement with adjustment to psychiatric medications. -Continue ropinirole 2 mg nightly for restless leg #Physical deconditioning: PT/OT consulted, recommended SNF. Case management assisting with placement options. Has been graciously accepted to [facility] for rehab. Stable to discharge. #UTI: Urine abnormal, urine growing gram-positive cocci. Symptoms improved. Completed 5 days of ceftriaxone during admission. No further antibiotics at this time #Anxety/depression: Concern for side effects from her home medications. Component of serotonin syndrome. Discontinuing BuSpar and Lexapro. Recommend Xanax 0.25 mg twice daily as needed. Monitor for symptom improvement with her rigidity and stability of neuropsychiatric symptoms. Patient had stable mood during admission. #GERD: Continue pantoprazole daily Stable to discharge to rehab. Monitor for improvement in stiffness. Patient working with therapy during admission. Total time spent on discharge 45 minutes in counseling, documentation, chart review, and direct care with patient. Exam Data for Last 24 hours Vital signs and Labs for Last 24 Hours: Temp Pulse Resp BP Pulse Ox O2 Del Method O2 Flow Rate 97.6 F 71 18 147/70 H 96 Room Air 2 05/05/24 04:00 05/05/24 04:00 05/05/24 04:00 05/05/24 04:00 05/05/24 04:00 05/05/24 06:52 05/04/24 06:00 Laboratory Results - last 24 hr 05/04/24 14:10: Sodium 130 L, Potassium 3.8, Chloride 97 L, Carbon Dioxide 29, Anion Gap 7.8, BUN 27 H, Creatinine 0.90, Estimated Creat Clear 40, Estimated GFR 61, Est GFR ( Amer) 74, Glucose 100, Calcium 8.6 05/04/24 22:04: Sodium 130 L, Potassium 4.0, Chloride 97 L, Carbon Dioxide 28, Anion Gap 9.0, BUN 25 H, Creatinine 0.80, Estimated Creat Clear 40, Estimated GFR 70, Est GFR ( Amer) 85, Glucose 89, Calcium 8.5 05/05/24 05:50: WBC 8.8, RBC 3.99 L, Hgb 12.3, Hct 34.6 L, MCV 86.7, MCH 30.8, MCHC 35.5 H, RDW 13.9, Plt Count 178, MPV 8.2, Neut % (Auto) 75.7, Lymph % (Auto) 13.5, [place] % (Auto) 7.5, Eos % (Auto) 2.8, Baso % (Auto) 0.5, Neut # (Auto) 6.7, Lymph # (Auto) 1.2, [place] # (Auto) 0.7, Eos # (Auto) 0.3, Baso # (Auto) 0.0, Sodium 127 L, Potassium 4.0, Chloride 99, Carbon Dioxide 23, Anion Gap 9.0, BUN 20 H, Creatinine 0.60 D, Estimated Creat Clear 41, Estimated GFR 98, Est GFR ( Amer) 118 D, Glucose 80, Calcium 8.4, Magnesium 1.6 D, Total Bilirubin 1.0, AST 152 H, ALT 97 H D, Alkaline Phosphatase 107, Total Protein 5.5 L, Albumin 3.5, Globulin 2.0, Albumin/Globulin Ratio 1.8 I & O for Last 24 hours: Intake & Output 05/02/24 05/03/24 05/04/24 05/05/24 23:59 23:59 23:59 23:59 Intake Total 780 / 780 440 / 560 927 / 1127 200 / 200 Output Total 1250 / 1250 800 / 875 225 / 225 325 / 325 Balance -470 / -470 -360 / -315 702 / 902 -125 / -125 Weight 51.98 kg 51.211 kg 51.211 kg 52.163 kg Microbiology Reports for the Last 24 Hours: Microbiology 04/30/24 09:20 Blood Blood Culture - Preliminary NO GROWTH AFTER 4 DAYS 04/30/24 09:20 Blood Blood Culture - Preliminary NO GROWTH AFTER 4 DAYS 05/01/24 16:00 Urine,Clean Catch Urine Culture - Preliminary Gram Positive Cocci Constitutional Constitutional: no acute distress, average body habitus, chronically ill appearing and cooperative *Routine HEENT Exam Head: Present normocephalic Eye: Present EOMI and PERRL ENT: Present mucous membranes moist *Routine Neck Exam Neck: Present supple; Absent lymphadenopathy *Routine Respiratory Exam Respiratory: Present CTA bilaterally; Absent accessory muscle use, rhonchi, wheezes or crackles *Routine Cardiovascular Exam Cardiovascular: Present RRR *Routine Abdominal Exam Abdominal: Present soft and normoactive bowel sounds; Absent tenderness *Routine Rectal Exam Patient deferred: visual exam *Routine Exam Patient deferred: external exam *Routine Extremities Exam Extremities: Absent cyanosis, clubbing or edema Comments: stiff, muscle spasm worse in BLE *Routine Skin Exam Skin: Present intact and warm; Absent erythema or rash *Routine Neurological Exam Neurological: Present alert, oriented X3, CN II-XII intact, moving all extremities and normal speech; Absent sensory deficit, motor deficit, altered mental status, abnormal gait or facial asymmetry Comments: stiff legs and arms Results Data Completed and Pending Labs on day of discharge: Labs from last 24 hours 05/05/24 05/04/24 05/04/24 05:50 22:04 14:10 WBC 8.8 RBC 3.99 L Hgb 12.3 Hct 34.6 L MCV 86.7 MCH 30.8 MCHC 35.5 H RDW 13.9 Plt Count 178 MPV 8.2 Neut % (Auto) 75.7 Lymph % (Auto) 13.5 [place] % (Auto) 7.5 Eos % (Auto) 2.8 Baso % (Auto) 0.5 Neut # (Auto) 6.7 Lymph # (Auto) 1.2 [place] # (Auto) 0.7 Eos # (Auto) 0.3 Baso # (Auto) 0.0 Sodium 127 L 130 L 130 L Potassium 4.0 4.0 3.8 Chloride 99 97 L 97 L Carbon Dioxide 23 28 29 Anion Gap 9.0 9.0 7.8 BUN 20 H 25 H 27 H Creatinine 0.60 D 0.80 0.90 Estimated Creat Clear 41 40 40 Estimated GFR 98 70 61 Est GFR ( Amer) 118 D 85 74 Glucose 80 89 100 Calcium 8.4 8.5 8.6 Magnesium 1.6 D Total Bilirubin 1.0 AST 152 H ALT 97 H D Alkaline Phosphatase 107 Total Protein 5.5 L Albumin 3.5 Globulin 2.0 Albumin/Globulin Ratio 1.8 Preliminary micro results at discharge 04/30/24 09:20 Blood Culture - Preliminary Blood NO GROWTH AFTER 4 DAYS 04/30/24 09:20 Blood Culture - Preliminary Blood NO GROWTH AFTER 4 DAYS 05/01/24 16:00 Urine Culture - Preliminary Urine,Clean Catch Gram Positive Cocci DS: Diagnosis Discharge Diagnosis (1) Acute hyponatremia: Status: Acute Code(s): E87.1 - Hypo-osmolality and hyponatremia (2) Hypertensive emergency: Status: Acute Code(s): I16.1 - Hypertensive emergency (3) Declining functional status: Status: Acute Code(s): R53.81 - Other malaise (4) Lower extremity pain: Status: Acute Code(s): M79.606 - Pain in leg, unspecified (5) Urinary tract infection: Status: Suspected Code(s): N39.0 - Urinary tract infection, site not specified Qualifiers: Urinary tract infection type: acute pyelonephritis Qualified Code(s): N10 - Acute pyelonephritis (6) Physical deconditioning: Status: Acute Code(s): R53.81 - Other malaise (7) Restless leg syndrome: Status: Acute Code(s): G25.81 - Restless legs syndrome Meds Home Medications and Allergies Home Medications ?Medication ?Instructions ?Recorded ?Confirmed ?Type aspirin 81 mg chewable tablet 81 mg PO DAILY #90 tabs 02/03/24 04/30/24 Rx pantoprazole 40 mg tablet,delayed 40 mg PO DAILY #90 tabs 02/03/24 04/30/24 Rx release vitamin E mixed 100 unit tablet 134 mg PO DAILY 03/15/24 04/30/24 History vit no.133-ferrous 1 tab PO DAILY 04/30/24 04/30/24 History fumarate 28 mg-folic acid 800 mcg tablet () acetaminophen 325 mg tablet 650 mg (2 x 325 mg) PO Q4HP PRN 05/05/24 Rx Fever Or Mild Pain (1-3) #0 tabs alprazolam 0.25 mg tablet (Xanax) 0.25 mg PO BID #60 tabs 05/05/24 Rx carvedilol 3.125 mg tablet 3.125 mg PO BID 30 days #60 tabs 05/05/24 Rx gabapentin 300 mg capsule 300 mg PO BID 30 days #60 caps 05/05/24 Rx irbesartan 150 mg tablet 150 mg PO DAILY 30 days #30 tabs 05/05/24 Rx magnesium oxide 400 mg (241.3 mg 400 mg PO BID #60 tabs 05/05/24 Rx magnesium) tablet melatonin 5 mg tablet 5 mg PO HSP PRN Sleep 30 days #30 05/05/24 Rx tabs nifedipine 30 mg tablet,extended 60 mg (2 x 30 mg) PO DAILY 30 days 05/05/24 Rx release 24 hr #60 tabs oxybutynin chloride 10 mg 10 mg PO DAILY 30 days #30 tabs 05/05/24 Rx tablet,extended release 24 hr polyethylene glycol 3350 17 gram 17 g PO DAILY 30 days #30 ea 05/05/24 Rx oral powder packet (HealthyLax) ropinirole 1 mg tablet 2 mg (2 x 1 mg) PO HS 30 days #60 05/05/24 Rx tabs sennosides 8.6 mg-docusate sodium 1 tab PO BID 30 days #60 tabs 05/05/24 Rx 50 mg tablet (Stimulant Laxative Plus) sodium chloride 1,000 mg soluble 1,000 mg PO QID 30 days #120 tabs 05/05/24 Rx tablet vibegron 75 mg tablet (Gemtesa) 75 mg PO DAILY 30 days #30 tabs 05/05/24 Rx New Prescriptions to Start Prescriptions: alprazolam [Xanax] Micky Aquinovedilol Miles,Micky gabapentin Miles,Micky irbesartan Miles,Micky magnesium oxide Miles,Micky melatonin Miles,Micky nifedipine Miles,Micky oxybutynin chloride Miles,Micky polyethylene glycol 3350 [HealthyLax] Miles,Micky ropinirole Miles,Micky sennosides-docusate sodium [Stimulant Laxative Plus] Miles,Micky sodium chloride Miles,Micky vibegron [Gemtesa] Micky Aquino Allergies Allergy/AdvReac Type Severity Reaction Status Date / Time No Known Allergies Allergy Verified 04/25/24 14:25 Discharge Plan Disposition Patient Disposition: Xfer [facility] Discharge Order Discharge Orders: Discharge Order (Routine); Ordered 05/05/24 Ordered By: Micky Aquino Follow up Plan Prescriptions/Medication Reconciliation: New acetaminophen 325 mg Tablet 650 mg PO Q4HP PRN (Reason: Fever Or Mild Pain (1-3)) Qty: 0 0RF nifedipine 30 mg Tablet Extended Release 24hr 60 mg PO DAILY 30 Days Qty: 60 0RF ropinirole 1 mg Tablet 2 mg PO HS 30 Days Qty: 60 0RF polyethylene glycol 3350 [HealthyLax] 17 gram Powder In Packet 17 g PO DAILY 30 Days Qty: 30 0RF carvedilol 3.125 mg Tablet 3.125 mg PO BID 30 Days Qty: 60 0RF gabapentin 300 mg Capsule 300 mg PO BID 30 Days Qty: 60 0RF irbesartan 150 mg Tablet 150 mg PO DAILY 30 Days Qty: 30 0RF sodium chloride 1,000 mg Tablet,Soluble 1,000 mg PO QID 30 Days Qty: 120 0RF melatonin 5 mg Tablet 5 mg PO HSP PRN (Reason: Sleep) 30 Days Qty: 30 0RF magnesium oxide 400 mg (241.3 mg magnesium) Tablet 400 mg PO BID Qty: 60 0RF sennosides-docusate sodium [Stimulant Laxative Plus] 8.6-50 mg Tablet 1 tab PO BID 30 Days Qty: 60 0RF alprazolam [Xanax] 0.25 mg tablet 0.25 mg PO BID Qty: 60 0RF Continued pantoprazole 40 mg tablet,delayed release (DR/EC) 40 mg PO DAILY Qty: 90 1RF aspirin 81 mg tablet,chewable 81 mg PO DAILY Qty: 90 1RF vitamin E mixed 100 unit tablet 134 mg PO DAILY 28-800 mg-mcg Tablet 1 tab PO DAILY oxybutynin chloride 10 mg tablet extended release 24hr 10 mg PO DAILY 30 Days Qty: 30 1RF Gemtesa 75 mg tablet 75 mg PO DAILY 30 Days Qty: 30 2RF Discontinued melatonin 3 mg capsule 3 mg PO HS losartan 25 mg tablet 25 mg PO DAILY Qty: 90 1RF bumetanide 1 mg tablet 1 mg PO DAILY gabapentin 100 mg capsule 200 mg PO HS Problem Reconciliation Problems Reviewed?: Yes Patient Discharge Instructions ACTIVITY: Continue current activity DIET: continue same diet Patient Instructions: DI for High Blood Pressure, DI for Hyponatremia Print Language: Maldivian Providers Primary Care Provider: Farooq Lee Admit Provider: Estiven Bautista Attending Provider: Estiven Bautitsa
[2024-05-05 07:43] LABS: Phosphorous 2.5 mg/dl (2.5-4.5)
[2024-05-05 08:00] VITALS: BP 153/70; PULSE 70; PULSE 78; RESP 16; TEMP 36.7; O2SAT 96
--- NOTE | 2024-05-05 08:04 | EXP.PHA.PN ---
Subjective *Date: 05/05/24 *Time: 08:04 Medical Exam Vital signs and Labs for Last 24 Hours: Vital Signs Temp Pulse Pulse Resp BP Pulse Ox O2 Del Method 05/05/24 06:52 Room Air 05/05/24 04:59 Room Air 05/05/24 04:00 79 05/05/24 04:00 97.6 F 71 18 147/70 H 96 Room Air 05/05/24 03:00 Room Air 05/05/24 01:00 Room Air 05/05/24 00:00 70 05/05/24 00:00 98.2 F 66 16 133/65 95 Room Air 05/04/24 23:00 Room Air 05/04/24 21:00 Room Air 05/04/24 20:00 96 Room Air 05/04/24 20:00 79 05/04/24 19:42 98.4 F 74 18 140/68 96 Room Air 05/04/24 18:39 Room Air 05/04/24 17:08 Room Air 05/04/24 16:00 98.2 F 65 18 139/61 97 Room Air 05/04/24 16:00 70 05/04/24 15:00 Room Air 05/04/24 13:00 Room Air 05/04/24 12:00 60 05/04/24 12:00 98 F 68 15 165/72 H 98 Room Air 05/04/24 11:00 Room Air 05/04/24 10:00 57 L 18 132/60 97 Room Air 05/04/24 08:48 Room Air Intake and Output 05/04/24 05/05/24 05/05/24 23:59 07:59 15:59 Intake Total 270 / 1127 200 / 200 Output Total 0 / 225 325 / 325 Balance 270 / 902 -125 / -125 Intake: Intake, Oral Amount 270 / 887 200 / 200 Output: Output, Urine Amount 0 / 225 325 / 325 Other: Number of Voids 0 Weight 52.163 kg Patient Weight 05/05/24 23:59 Weight 52.163 kg Laboratory Results - last 24 hr 05/04/24 14:10: Sodium 130 L, Potassium 3.8, Chloride 97 L, Carbon Dioxide 29, Anion Gap 7.8, BUN 27 H, Creatinine 0.90, Estimated Creat Clear 40, Estimated GFR 61, Est GFR ( Amer) 74, Glucose 100, Calcium 8.6 05/04/24 22:04: Sodium 130 L, Potassium 4.0, Chloride 97 L, Carbon Dioxide 28, Anion Gap 9.0, BUN 25 H, Creatinine 0.80, Estimated Creat Clear 40, Estimated GFR 70, Est GFR ( Amer) 85, Glucose 89, Calcium 8.5 05/05/24 05:50: WBC 8.8, RBC 3.99 L, Hgb 12.3, Hct 34.6 L, MCV 86.7, MCH 30.8, MCHC 35.5 H, RDW 13.9, Plt Count 178, MPV 8.2, Neut % (Auto) 75.7, Lymph % (Auto) 13.5, [place] % (Auto) 7.5, Eos % (Auto) 2.8, Baso % (Auto) 0.5, Neut # (Auto) 6.7, Lymph # (Auto) 1.2, [place] # (Auto) 0.7, Eos # (Auto) 0.3, Baso # (Auto) 0.0, Sodium 127 L, Potassium 4.0, Chloride 99, Carbon Dioxide 23, Anion Gap 9.0, BUN 20 H, Creatinine 0.60 D, Estimated Creat Clear 41, Estimated GFR 98, Est GFR ( Amer) 118 D, Glucose 80, Calcium 8.4, Phosphorus 2.5, Magnesium 1.6 D, Total Bilirubin 1.0, AST 152 H, ALT 97 H D, Alkaline Phosphatase 107, Total Protein 5.5 L, Albumin 3.5, Globulin 2.0, Albumin/Globulin Ratio 1.8 I & O for Labs for Last 24 Hours: Intake & Output 05/02/24 05/03/24 05/04/24 05/05/24 23:59 23:59 23:59 23:59 Intake Total 780 / 780 440 / 560 927 / 1127 200 / 200 Output Total 1250 / 1250 800 / 875 225 / 225 325 / 325 Balance -470 / -470 -360 / -315 702 / 902 -125 / -125 Weight 51.98 kg 51.211 kg 51.211 kg 52.163 kg Microbiology Reports for the Last 24 Hours: Microbiology 04/30/24 09:20 Blood Blood Culture - Preliminary NO GROWTH AFTER 4 DAYS 04/30/24 09:20 Blood Blood Culture - Preliminary NO GROWTH AFTER 4 DAYS 05/01/24 16:00 Urine,Clean Catch Urine Culture - Preliminary Gram Positive Cocci The patient's infection will respond to the chosen ABx?: Yes Is the patient receiving the right drug, dose, and route?: Yes Could a more targeted ABx be ordered?: No (WBC WNL, AFEBRILE, GRAM + URINE CX.)
[2024-05-05] MEDS: ENOXAPARIN 40MG/0.4ML SYRINGE 40 MG SUBCUT (09:20)
[2024-05-05] MEDS: CEFTRIAXONE 1 GM 1 GM in 0.9 % SODIUM CHLORIDE 50 ML IV (09:20)
[2024-05-05] MEDS: IRBESARTAN 150MG TAB 150 MG PO (09:21)
[2024-05-05] MEDS: BUSPIRONE HCL 5 MG TABLET PO (09:21)
[2024-05-05] MEDS: OXYBUTYNIN 5MG TAB 5 MG PO (09:21)
[2024-05-05] MEDS: CARVEDILOL 3.125MG TABLET 3.125 MG PO (09:21)
[2024-05-05] MEDS: POLYETHYLENE GLYCOL 3350 17 GM PACKET PO (09:21)
[2024-05-05] MEDS: SENNOSIDES 8.6MG/DOCUSATE 50MG TABLET 1 TAB PO (09:21)
[2024-05-05] MEDS: CITALOPRAM 20MG TABLET 20 MG PO (09:21)
[2024-05-05] MEDS: ASPIRIN 81MG CHEWABLE TABLET 81 MG PO (09:21)
[2024-05-05] MEDS: SODIUM CHLORIDE 1,000MG TABLET 1000 MG PO ×2 (09:21→12:01)
[2024-05-05] MEDS: GABAPENTIN 300MG CAPSULE 300 MG PO (09:21)
[2024-05-05] MEDS: MAGNESIUM SULFATE IN WATER 2 GM/50 ML PIGGYBACK IV (09:23)
[2024-05-05] MEDS: MAGNESIUM OXIDE 400MG TABLET 400 MG PO (09:23)
[2024-05-05] MEDS: NIFEdipine XL 30MG TABLET 60 MG PO (09:24)
[2024-05-05] MEDS: ALPRAZolam 0.25MG TABLET 0.25 MG PO (10:51)
[2024-05-05] MEDS: BISACODYL 10MG SUPP 10 MG RC (10:51)
[2024-05-05 12:00] VITALS: PULSE 65
== END 2024-05-05 14:24 | DRG 644 ==
LOC: ER 12:19 → 2ND 12:41
PROVIDERS: Internal Medicine Adolescent Medicine; Admitting Provider Student in an Organized Health Care Education/Training Program; Emergency Provider Emergency Medicine; PCP Internal Medicine; Visit Provider Student in an Organized Health Care Education/Training Program
DX: E22.2 Syndrome of inappropriate secretion of antidiuretic hormone (principal); I16.1 Hypertensive emergency; N39.0 Urinary tract infection, site not specified; R53.81 Other malaise; M79.606 Pain in leg, unspecified
CPT/HCPCS: 36415; 70450; 70496; 70498; 71045; 73562; 80048; 80053; 81001; 82550; 82728; 83540; 83550; 83735; 83880; 84100; 84436; 84439; 84443; 84484; 84540; 85007; 85025; 86803; 87040; 87086; 87088; 87186; 87389; 87636; 93005; 93306; 93925; 93970; 93976; 97163; 97165; 97530; 99284; 99291; J0696; J0780; J1650; J1885; J1920; J2270; J2404; J2405; J3360; J3475; Q9967

== ENCOUNTER 2024-06-20 13:38 | Outpatient (CLI) | payer MEDICARE, SELFPAY ==
[2024-06-20 14:08] LABS: Microscopic, Urine URINE MICROSCOPIC (MICROSCOPIC)
[2024-06-20 14:13] LABS: Appearance,Urine CLEAR (Clear); Bilirubin,Urine Negative (Negative); Blood, Urine Negative (Negative); Color,Urine YELLOW (Yellow); Glucose,Urine (UA) Negative (Negative); Ketones,Urine Negative (Negative); Leukocyte Esterase,Urine Negative (Negative); Nitrate,Urine Negative (Negative); Protein,Urine Negative (Negative); Specific Gravity, Urine 1.015 (1.005-1.030); Urobilinogen,Urine 0.2 EU/dl (0.2)
[2024-06-20 14:22] LABS: Bacteria,Urine Trace /lpf; Creatinine,Urine Random 57 mg/dL (Not Estab.); WBC,Urine Occasional #/hpf (0-3)
[2024-06-20 14:25] LABS: Hematocrit 38.1 % (37.0-47.0); Hemoglobin 12.6 g/dL (12.2-16.2); Mean Corpuscular HGB Conc 33.1 g/dL (31.8-35.4); Mean Corpuscular Hemoglobin 30.1 pg (27.0-31.2); Mean Corpuscular Volume 91.1 fl (81-99); Platelet Count 205 K/mm3 (142-424); Red Blood Count 4.18 M/mm3 (4.20-5.40); Red Cell Distribution Width 13.2 % (11.5-17.5); White Blood Count 7.3 K/mm3 (4.8-10.8)
[2024-06-20 14:49] LABS: Anion Gap 14.4 mEq/L (5-15); Blood Urea Nitrogen 25 mg/dl (7-17); Carbon Dioxide 29 mmol/L (22.0-30.0); Chloride 99 mmol/L (98-107); Estimated Glomerular Filt Rate 54 ml/min (>60); GFR (African American) 66 ML/MIN (>60); Glucose 104 mg/dl (74-100); Phosphorous 4.4 mg/dl (2.5-4.5); Potassium 4.4 mmoL/L (3.5-5.1); Sodium 138 mmol/L (136-145)
[2024-06-20 15:06] LABS: 25-OH Vitamin D, Total 66.2 ng/mL (30-100)
[2024-06-21 15:13] LABS: Osmolality, Urine 434 mOsmol/kg (.)
== END 2024-06-20 23:59 ==
PROVIDERS: Visit Provider Family Medicine Hospice and Palliative Medicine
DX: N39.0 Urinary tract infection, site not specified (principal); E55.9 Vitamin D deficiency, unspecified
CPT/HCPCS: 80069; 81001; 82306; 82570; 83930; 83935; 83970; 84156; 84540; 85027

== ENCOUNTER 2024-09-01 12:24 | Outpatient (CLI) | payer MEDICARE, OTHER, SELFPAY ==
[2024-09-01 13:33] LABS: Albumin Level 4.7 g/dl (3.5-5.0); Anion Gap 7.7 mEq/L (5-15); Blood Urea Nitrogen 21 mg/dl (7-17); Calcium 9.5 mg/dl (8.4-10.2); Carbon Dioxide 32 mmol/L (22.0-30.0); Chloride 103 mmol/L (98-107); Estimated Glomerular Filt Rate 49 ml/min (>60); GFR (African American) 59 ML/MIN (>60); Glucose 74 mg/dl (74-100); Phosphorous 3.9 mg/dl (2.5-4.5); Potassium 4.7 mmoL/L (3.5-5.1); Sodium 138 mmol/L (136-145)
== END 2024-09-01 23:59 | disposition home or self-care (01) ==
LOC: LAB 12:25
PROVIDERS: PCP Internal Medicine; Visit Provider Nurse Practitioner
DX: E87.1 Hypo-osmolality and hyponatremia (principal)
CPT/HCPCS: 36415; 80069

== ENCOUNTER 2024-10-16 13:35 | Outpatient (CLI) | payer MEDICARE, OTHER, SELFPAY ==
--- NOTE | 2024-10-16 14:02 | XR_ITS ---
FINAL REPORT CLINICAL HISTORY: Foot Pain unable to fully rest foot on ground FINDINGS: AP, oblique and lateral views of the right foot were obtained. There is no prior exam for comparison. There is no acute fracture or dislocation. Mild degenerative joint disease of the 1st MTP joint. Soft tissues are unremarkable. IMPRESSION: Mild degenerative change without acute osseous abnormality of the right foot. Reviewed, Interpreted and Dictated by Helen Vazquez MD Transcribed by Asuncion Kessler Authenticated and [facility]
--- NOTE | 2024-10-16 14:02 | XR_ITS ---
FINAL REPORT CLINICAL HISTORY: Foot Pain FINDINGS: AP, oblique and lateral views of the left foot were obtained. No prior exam for comparison. There is no acute fracture or dislocation. Mild degenerative joint disease is most pronounced at the 1st MTP joint. Soft tissue edema of the forefoot is nonspecific. IMPRESSION: No acute osseous abnormality of the left foot. Soft tissue edema and mild degenerative change. Reviewed, Interpreted and Dictated by Helen Vazquez MD Transcribed by Asuncion Kessler Authenticated and . [facility]
[2024-10-16 15:01] LABS: Albumin Level 4.7 g/dl (3.5-5.0); Chloride 102 mmol/L (98-107); Potassium 5.2 mmoL/L (3.5-5.1); Sodium 136 mmol/L (136-145)
[2024-10-16 15:04] LABS: Anion Gap 12.2 mEq/L (5-15); Blood Urea Nitrogen 18 mg/dl (7-17); Calcium 9.6 mg/dl (8.4-10.2); Carbon Dioxide 27 mmol/L (22.0-30.0); Estimated Glomerular Filt Rate 54 ml/min (>60); GFR (African American) 66 ML/MIN (>60); Glucose 89 mg/dl (74-100); Phosphorous 4.4 mg/dl (2.5-4.5)
== END 2024-10-16 23:59 | disposition home or self-care (01) ==
LOC: RAD 13:36
PROVIDERS: Nurse Practitioner; PCP Internal Medicine; Visit Provider Podiatrist
DX: M79.671 Pain in right foot (principal); M79.672 Pain in left foot
CPT/HCPCS: 36415; 73630; 80069

== ENCOUNTER 2024-11-21 11:54 | Outpatient (CLI) | payer MEDICARE, OTHER, SELFPAY ==
--- OUTSIDE RECORDS SUMMARY | 2024-11-21 12:01 | XMS_ITS | Encounter Summary ---
Author Organization [facility] Address [address] [place] [address] Care Team Providers Care Custom Dressmaker Name Role Phone Farooq Lee MD Primary Care Provider Reason for Referral * Consultation (Routine) - Closed Specialty Diagnoses / Procedures Referred By Lorena campbell Referred To Contact Nephrology Diagnoses Chronic hyponatremia Sasha Lantigua MD [address] [facility] [address] [place] [address] Phone: tel: fax: [facility] [place] Nephrology, Bone & Mineral Metabolism [address] [facility], [address] [place] [address] Phone: tel: fax: Referral ID Status Reason Start Date Expiration Date V isits Requested Visits Authorized [id number] Closed Specialty Services Required 05/17/2024 11/16/2025 1 1 Encounter Details Date Type Department Care Team (Latest Contact Info) Description 05/17/2024 Community Orders Community Practice [address] [place] [address] Sasha Lantigua MD [address] [facility] [address] [place] [address] Chronic hyponatremia (Primary Dx) Social History Tobacco Use Types Packs/Day Years Used Date Smoking Tobacco: Never Assessed Comments Unknown Sex and Gender Information Value Date Recorded Sex Assigned at Female 06/22/2024 5:03 PM EST Legal Sex Female 6:56 PM EDT Gender Identity Not on file Sexual Orientation Not on file documented as of this encounter Plan of Treatment Upcoming Encounters Date Type Department Care Team (Late st Contact Info) Description 11/24/2024 10:40 AM EDT Office Visit [facility] [address] [facility] [address] [place] [phone] Cheryl Browne, CLIP LOADING MACHINE ADJUSTER [address] [address] Scheduled Referrals Name Type Priority Associated Diagnoses Orde r Schedule Ambulatory referral to Nephrology Outpatient Referral Routine Chronic hyponatremia Expected: 05/17/2024 (Approximate), Expires: 11/15/2025 documented as of this encounter Visit Diagnoses Diagnosis Chronic hyponatremia- Primary Hyposmolality and/or hyponatremia documented in this encounter Care Teams Custom Dressmaker Relationship Specialty Start Date End Date Farooq Lee MD [address] [facility] [address] [place] [id number] PCP - General 06/22/24 documented as of this encounter
--- OUTSIDE RECORDS SUMMARY | 2024-11-21 12:01 | XMS_ITS | Clinical Summary ---
Author Organization [facility] Address [address] [facility] [address] [place] [address] Phone Care Team Providers Care Round Up Ring Hand Name Role Phone Unavailable Unavailable Conditions or Problems No information available. Medications No information available. Medications Administered No information available. Allergies, Adverse Reactions, Alerts No information available. Results No information available. Plan of Care No information available. Procedures No information available. Vital Signs No information available. Immunizations No information available. Advance Directives No information available.
--- OUTSIDE RECORDS SUMMARY | 2024-11-21 12:01 | XMS_ITS | Clinical Summary ---
Author Organization [facility] Address [address] [place] [address] Care Team Providers Care Senior Reservations Agent Name Role Phone Farooq Lee MD Primary Care Provider [phone] Allergies No known active allergies Medications acetaminophen (Tylenol) 325 MG tablet Take 2 tablets (650 mg) by mouth every 6 (six) hours if needed. Under [place] law, monthly prescriptions (30 days) can be refilled at 25 days and three-month prescriptions (90 days) at 80 days. Please contact the insurance company with questions if refills are denied. Active aspirin 81 MG EC tablet Take 1 tablet (81 mg) by mouth 1 (one) time each day. Active gabapentin (Neurontin) 300 MG capsule Take 1 capsule (300 mg) by mouth 2 (two) times a day. Active irbesartan (Avapro) 150 MG tablet Take 1 tablet (150 mg) by mouth 1 (one) time each day. Active magnesium oxide (Mag-Ox) 400 mg tablet 1 tablet (400 mg) 2 (two) times a day. Active Melatonin 5 MG tablet tablet Take 1 tablet (5 mg) by mouth at night if needed for sleep. Active polyethylene glycol (Miralax) 17 g packet Take 17 g by mouth 1 (one) time each day. Active NIFEdipine CC (Adalat CC) 60 MG 24 hr tablet Take 1 tablet (60 mg) by mouth 1 (one) time each day before breakfast. Do not crush, chew, or split. Active pantoprazole (Protonix) 40 MG EC tablet Take 1 tablet (40 mg) by mouth 1 (one) time each day before breakfast. Do not crush, chew, or split. Active Vit-Fe Fumarate-FA (/Iron ) 28-0.8 MG tablet Take by mouth. Activ e rOPINIRole (Requip) 1 MG tablet Take 2 tablets (2 mg) by mouth every night. Active senna-docusate (Jen-Colace) 8.6-50 MG tablet Take 1 tablet by mouth 1 (one) time each day. Active sodium chloride 1 g tablet Take 1 tablet (1 g) by mouth 4 (four) times a day. Active alpha tocopherol (Vitamin E) 100 units capsule Take 1 capsule (100 Units) by mouth 1 (one) time each day. Active Coagulation Factor IX, rFIXFc, (Alprolix) 250 units injection Infuse into a venous catheter. Active magnesium hydroxide (Milk of Magnesia) 400 MG/5ML suspension Take by mouth 1 (one) time each day if needed for constipation. Active carvedilol (Coreg) 6.25 MG tablet Take 1 tablet (6.25 mg) by mouth 2 (two) times a day with meals. Active bumetanide (Bumex) 2 MG tablet Take 1 tablet (2 mg) by mouth 1 (one) time each day. Active oxybutynin XL (Ditropan-XL) 10 MG 24 hr tablet Take 1 tablet (10 mg) by mouth 1 (one) time each day. Do not crush, chew, or split. Active estradiol (Estrace) 0.1 MG/GM vaginal cream Insert 2 g into the vagina 1 (one) time each day. Active Cyanocobalamin (B-12 Compliance Injection) 1000 MCG/ML kit Inject as directed every 30 (thirty) days. Active Encounters Date Type Department Care Team Description 09/08/2024 10:20 AM EDT Office Visit [facility] [address] [place] [address] Cheryl Browne APRN CKD (chronic kidney disease) stage 2, GFR 60-89 ml/min (Primary Dx); Chronic hyponatremia; Essential hypertension; Localized edema 09/08/2024 Travel from Last 3 Months Immunizations Immunization Administration Dates Next Due Influenza, High-dose, Split Virus, Trivalent, Injectable, preservative free 03/30/2024 Tdap 10/07/2022 Social History Tobacco Use Types Packs/Day Years Used Date Smoking Tobacco: Never Smokeless Tobacco: Never Alcohol Use Standard Drinks/Week Comments Never 0 (1 standard drink = 0.6 oz pur e alcohol) Comments No Sex and Gender Information Value Date Recorded Sex Assigned at Female 06/22/2024 5:03 PM EST Legal Sex Female 6:56 PM EDT Gender Identity Not on file Sexual Orientation Not on file Last Filed Vital Signs Vital Sign Reading Time Taken Comments Blood Pressure 138/78 09/08/2024 10:04 AM EDT Pulse 69 09/08/2024 10:04 AM EDT Temperature 36.8 C (98.2 F) 09/08/2024 10:04 AM EDT Respiratory Rate 16 09/08/2024 10:04 AM EDT Oxygen Saturation 100% 09/08/2024 10:04 AM EDT Inhaled Oxygen Concentration - - Weight 54.4 kg (120 lb) 09/08/2024 10:04 AM EDT Height 152.4 cm (5') 09/08/2024 10:04 AM EDT Body Mass Index 23.44 09/08/2024 10:04 AM EDT Plan of Treatment Upcoming Encounters Date Type Department Care Team (Late st Contact Info) Description 11/24/2024 10:40 AM EDT Office Visit [facility] [address] [place] [address] Cheryl Browne, TITO [address] [address] Health Maintenance Due Date Last Done Comments [facility]-Bone Density Scan 1950 [facility]-Depression Screening 1950 [facility]-Hepatitis C Screening 1950 [facility]-Medicare Annual Wellness (AWV) 1950 [facility]-Infant/Child/Adol SDOH Screenings 1950 [facility]- SDOH Screenings 1968 [facility]-Adult SDOH Screenings 1968 CT Colonography 1995 Colonoscopy 1995 FIT-DNA 1995 FIT 1995 FOBT 1995 Sigmoidoscopy 1995 [facility]-Colorectal Cancer Screening 1995 [facility]-Breast Cancer Screening 2000 [facility]-Pneumococcal Vaccine: 50+ Years (1 of 1 - PCV) 2000 [facility]-Zoster Vaccines (1 of 2) 2000 [id number] Vaccine ( - 2023- season) 2024 05/18/2023, 03/10/2022, 11/04/2021, Additional history exists [facility]-RSV Vaccine: 60+ Years or (1 - 1-dose 75+ series) 2025 [facility]-DTaP,Tdap,and Td Vaccines (2 - Td or Tdap) 10/07/2032 10/07/2022 [facility]-Influenza Vaccine Completed 03/30/2024 HPV Vaccines Aged Out No longer eligi ble based on patient's age to complete this topic [facility]-HIB Vaccines Aged Out No longer e ligible based on patient's age to complete this topic [facility]-Hepatitis A Vaccines Aged Out No longer eligible based on patient's age to complete this topic [facility]-IPV Vaccines Aged Out No longer e ligible based on patient's age to complete this topic [facility]-Rotavirus Vaccines Aged Out No lo nger eligible based on patient's age to complete this topic Insurance [facility] MEDICARE Care Teams Senior Reservations Agent Relationship Specialty Start Date End Date Farooq Lee MD [facility] [address] [place] [address] PCP - General 06/22/24
[2024-11-21 12:40] LABS: Albumin Level 4.4 g/dl (3.5-5.0); Anion Gap 7.9 mEq/L (5-15); Blood Urea Nitrogen 23 mg/dl (7-17); Calcium 9.3 mg/dl (8.4-10.2); Carbon Dioxide 28 mmol/L (22.0-30.0); Chloride 104 mmol/L (98-107); Estimated Glomerular Filt Rate 49 ml/min (>60); GFR (African American) 59 ML/MIN (>60); Glucose 85 mg/dl (74-100); Phosphorous 4.3 mg/dl (2.5-4.5); Potassium 4.9 mmoL/L (3.5-5.1); Sodium 135 mmol/L (136-145)
== END 2024-11-21 23:59 | disposition home or self-care (01) ==
LOC: LAB 11:59
PROVIDERS: PCP Internal Medicine; Visit Provider Nurse Practitioner
DX: N18.2 Chronic kidney disease, stage 2 (mild) (principal); E87.1 Hypo-osmolality and hyponatremia
CPT/HCPCS: 36415; 80069

== ENCOUNTER 2024-11-24 14:30 | Outpatient (CLI) | payer MEDICARE, OTHER, SELFPAY ==
--- OUTSIDE RECORDS SUMMARY | 2024-06-29 20:00 | XMS_ITS | Continuity of Care Document ---
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 [address] [place] [address], [address] [place] [address], [place], [place], [id number], tel:[phone] [facility] No Information [address] [place]. 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 Reinforced the [...]
--- OUTSIDE RECORDS SUMMARY | 2024-11-24 10:40 | XMS_ITS | Encounter Summary ---
Author Organization [facility] Address [address] [place] [address] Care Team Providers Care Electoral Officer Name Role Phone Farooq Lee MD Primary Care Provider [phone] Reason for Referral * Consultation (Routine) - Authorized Specialty Diagnoses / Procedures Referred By Lorena campbell Referred To Contact Diagnoses Chronic hyponatremia Cheryl Browne APRN [address] [address] Phone: tel: fax: Referral ID Status Reason Start Date Expiration Date V isits Requested Visits Authorized [id number] Authorized 11/24/2024 05/26/2026 1 1 Reason for Visit * Reason Comments Chronic Kidney Disease Pt is a 74 year o ld female that presents to the clinic on this date for a follow up for CKD. PT states she is doing well, and denies pain at the current moment. Encounter Details Date Type Department Care Team (Late st Contact Info) Description 11/24/2024 10:40 AM EDT Office Visit [facility] [address] [place] [address] Cheryl Browne APRN [address] [address] Chronic hyponatremia (Primary Dx); CKD (chronic kidney disease) stage 2, GFR 60-89 ml/min; Essential hypertension; Localized edema; Chronic kidney disease-mineral and bone disorder Social History Tobacco Use Types Packs/Day Years Used Date Smoking Tobacco: Never Smokeless Tobacco: Never Tobacco Cessation:Counseling Given: Not Answered Alcohol Use Standard Drinks/Week Comments Never 0 [...] Sign Reading Time Taken Comments Blood Pressure 112/52 11/24/2024 10:53 AM EDT Pulse 69 11/24/2024 10:53 AM EDT Temperature - - Respiratory Rate 16 11/24/2024 10:53 AM EDT Oxygen Saturation 96% 11/24/2024 10:53 AM EDT Inhaled Oxygen Concentration - - Weight 55.3 kg (122 lb) 11/24/2024 10:53 AM EDT Height 162.6 cm (5' 4 ) 11/24/2024 10:53 AM EDT Body Mass Index 20.94 11/24/2024 10:53 AM EDT documented in this encounter Miscellaneous Notes * Progress Notes - Cheryl Browne APRN - 11/24/2024 10:40 AM EDT Nephrology Clinic Follow up Note Birgit Estrada is a 74 y.o. female with PMH of HTN, CKD2, anxiety, restless leg syndrome, neuropathy, arthritis, and hyponatremia who presents today as a followup. Patient with known hyponatremia previous hospitalization 09/2023 and 05/07 with symptomatic hyponatremia. Initially on 4 salt tabs daily. Now weaned to 1gm BID with Bumex 2mg am, pm dose three times per week. Her fluid status has improved. She is now back at home and out of NH. Her appetite is good.Son, at chairside, notes she has been doing well at home. Today, she does endorse BLE. She has been taking bumex 2mg am and pm dose MWF. Denies hematuria, dysuria, abd pain, SOA, CP. Past Medical History[1] Current Outpatient Medications Medication Instructions acetaminophen (TYLENOL) 650 mg, Every 6 hours PRN alpha tocopherol (VITAMIN E) 100 Units, Daily aspirin 81 mg, Daily bumetanide (BUMEX) 2 mg, Daily carvedilol (COREG) 6.25 mg, 2 times daily with meals Coagulation Factor IX, rFIXFc, (Alprolix) 250 units injection Infuse into a venous catheter. Cyanocobalamin (B-12 Compliance Injection) 1000 MCG/ML kit Every 30 days estradiol (ESTRACE) 2 g, Daily gabapentin (NEURONTIN) 300 mg, 2 times daily irbesartan (AVAPRO) 150 mg, Daily magnesium hydroxide (Milk of Magnesia) 400 MG/5ML suspension Daily PRN magnesium oxide (MAG-OX) 400 mg, 2 times daily Melatonin 5 mg, Nightly PRN NIFEdipine CC (ADALAT CC) 60 mg, Daily before breakfast oxybutynin XL (DITROPAN-XL) 10 mg, Daily pantoprazole (PROTONIX) 40 mg, Daily before breakfast polyethylene glycol (MIRALAX) 17 g, Daily Vit-Fe Fumarate-FA (/Iron) 28-0.8 MG tablet Take by mouth. rOPINIRole (REQUIP) 2 mg, Nightly senna-docusate (Jen-Colace) 8.6-50 MG tablet 1 tablet, Daily sodium chloride 1 g, 4 times daily Physical Exam Visit Vitals BP 112/52 (BP Location: Left arm, Patient Position: Sitting, BP Cuff Size: Adult long) Pulse 69 Ht 1.626 m (5' 4 ) Wt 55.3 kg (122 lb) SpO2 96% BMI 20.94 kg/m?? GEN: NAD, sitting in chair, room air EYES: anicteric, EOMI ENT: MMM, Oropharynx clear RESP: patent airways, CTAB, no rales, rhonchi, wheezes CV: RRR, no appreciable murmurs Abd: soft, NT, ND, NABS MS/EXT: no LE edema, no new rashes PSYCH: mood appropriate, affect normal NEURO: AAOx3, follows commands Labs: I have independently reviewed and interpreted the test results and discussed with patient. Labs scanned in to media tab of [employer] from an outside facility. Labs completed on 09/01/24 Imaging: Assessment/Plan: Hyponatremia CKD2 HTN BLE edema Plan Sodium appears to be WNL She does continue to have sig BLE edema. Would increase bumex to BID. Willcontinue to hold Na tabs, at this time. Will repeat labs in one month. Renal function appears stable, however creatinine may decline once fluid status improves due to dilution. Had a lengthy discussion with patient and son about importance of fluid restriction and med adherence [1] Past Medical History: Diagnosis Date Anemia Anxiety disorder Depression GERD (gastroesophageal reflux disease) HTN (hypertension) Hypertensive emergency Hypo-osmolality and hyponatremia Restless leg syndrome UTI (urinary tract infection) documented in this encounter Plan of Treatment Upcoming Encounters Date Type Department Care Team (Late st Contact Info) Description 05/25/2025 8:20 AM EST Office Visit [facility] [address] [facility] [address] [place] [address] Cheryl Browne APRN [address] [address] Scheduled Orders Name Type Priority Associated Diagnoses Orde r Schedule CBC W/O Differential Lab Routine CKD (chronic kidney disease) stage 2, GFR 60-89 ml/min Chronic hyponatremia Expected: 11/24/2024 (Approximate), Expires: 05/26/2026 Protein, Random, Urine with Creatinine Lab Routine CKD (chronic kidney disease) stage 2, GFR 60-89 ml/min Chronic hyponatremia Expected: 11/24/2024 (Approximate), Expires: 05/26/2026 PTH Intact Total Lab Routine CKD (chronic kidney disease) stage 2, GFR 60-89 ml/min Chronic hyponatremia Expected: 11/24/2024 (Approximate), Expires: 05/26/2026 Renal Function Panel, Plasma Lab Routine CKD (chronic kidney disease) stage 2, GFR 60-89 ml/min Chronic hyponatremia Expected: 11/24/2024 (Approximate), Expires: 05/26/2026 Urinalysis with reflex microscopic (Culture NOT Included) Lab Routine CKD (chronic kidney disease) stage 2, GFR 60-89 ml/min Chronic hyponatremia Expected: 11/24/2024 (Approximate), Expires: 05/26/2026 Vitamin D 25 Hydroxy Lab Routine CKD (chronic kidney disease) stage 2, GFR 60-89 ml/min Chronic hyponatremia Chronic kidney disease-mineral and bone disorder Expected: 11/24/2024 (Approximate), Expires: 05/26/2026 Scheduled Referrals Name Type Priority Associated Diagnoses Orde r Schedule Follow Up Nephrology Outpatient Referral Routine Chronic hyponatremia Expected: 05/26/2025 (Approximate), Expires: 12/24/2025 documented as of this encounter Visit Diagnoses Diagnosis Chronic hyponatremia- Primary Hyposmolality and/or hyponatremia CKD (chronic kidney disease) stage 2, GFR 60-89 ml/min Chronic kidney disease, Stage II (mild) Essential hypertension Unspecified essential hypertension Localized edema Edema Chronic kidney disease-mineral and bone disorder documented in this encounter Additional Health Concerns Assessment Noted Time A Body Mass Index follow-up plan has been documented for the patient 11/24/2024 11:51 AM EDT documented as of this encounter Care Teams Electoral Officer Relationship Specialty Start Date End Date Farooq Lee MD [address] [place] [address] [address] [place] [address] PCP - General 06/22/24 documented as of this encounter
--- OUTSIDE RECORDS SUMMARY | 2024-11-24 23:11 | XMS_ITS | Referral Summary ---
Author Organization [facility] Address [address] [place] [address] Care Team Providers Care Senior Field Service Engineer Name Role Phone Provider, Not In System [...] (500 mg total) by mouth daily. Active melatonin 3 mg tablet Take 3 tablets (9 mg total) by mouth nightly. 0 4 Active pantoprazole (PROTONIX) 40 MG tablet Take 1 tablet (40 mg total) by mouth daily. 0 4 Active apixaban (ELIQUIS) 5 mg Tab tablet Take 2 tabs (10 mg) by mouth twice daily for 4 days (through 09/27/23), then take 1 tab (5 mg) twice daily thereafter (starting 09/28/23).. 60 tablet 4 Active Active Problems Problem Noted Date Diagnosed [...] your living situation today? I have a [facility] place to live 09/12/2023 Think about the [...] Do you speak a language other than Citizen [place] at ho ar? No 09/12/2023 Do you want help with [...] 78 09/25/2023 12:29 AM EDT Temperature 36.7 C (98.1 F) 09/25/2023 12:29 AM EDT Respiratory Rate 18 09/24/2023 9:08 PM EDT Oxygen Saturation 95% 09/24/2023 9:00 PM EDT Inhaled Oxygen Concentration - - Weight 48.5 kg (107 lb) 09/12/2023 4:50 PM EDT Height 160 cm (5' 3 ) 09/12/2023 4:50 PM EDT Body Mass Index 18.95 09/12/2023 4:50 PM EDT Plan of Treatment Not on file Insurance MEDICARE PART A B SUPP Advance Directives For more information, please contact: [phone] * DNR - Limited Additional Intervention (Latest Code Status on File) Date Activated Date Inactivated Comments 09/16/2023 9:25 AM 09/25/2023 12:24 PM If no pulse: NO intervention If has pulse: NO Intubation. May use BiPAP/CPAP Call SOCIAL HUMAN SERVICES ASSISTANTS * Full Code Date Activated Date Inactivated Comments 09/12/2023 4:56 PM 09/16/2023 9:25 AM Care Teams Senior Field Service Engineer Relationship Specialty Start Date End Date Provider, Not In System [place] PCP - General 09/12/23
--- OUTSIDE RECORDS SUMMARY | 2024-11-24 23:11 | XMS_ITS | Clinical Summary ---
Author Organization [facility] Address [address] [place] [address] Care Team Providers Care Blog Writer Name Role Phone Provider, Not In System [...] living situation today? I have a [facility] an[facility] place to live 09/12/2023 Think about the [...] Do you speak a language other than [place] at ho sd? No 09/12/2023 Do you want help with [...] FOBT/FIT 1950 Fit-DNA (Cologuard) 1950 Sigmoidoscopy 1950 Depression Screening (12+) 1962 Tobacco Cessation Counseling and Screening (12+) 1962 Hepatitis C Screening 1968 Breast Cancer Screening 1990 Pneumococcal 50+ years (1 of 1 - PCV) 2000 Shingles Vaccine (Zoster) (1 of 2) 2000 Medicare Initial AWV [id number] 2016 COVID-19 VACCINE (7 2023-2 5 season) 2024 05/18/2023, 03/10/2022, 11/04/2021, Additional history exists Falls Risk Screening 06/14/2024 Influenza Vaccine (Season Ended) 2025 03/13/20 21 Respiratory Syncytial Virus (RSV) Adult or (1 - 1-dose 75+ series) 2025 DTAP/TDAP/TD VACCINES (2 - T d or Tdap) 10/07/2032 10/07/2022 Insurance MEDICARE [place] [address] [place] [address] SUPP Advance Directives For more information, please contact: [phone] * DNR - Limited Additional Intervention (Latest Code Status on File) Date Activated Date Inactivated Comments 09/16/2023 9:25 AM 09/25/2023 12:24 PM If no pulse: NO intervention If has pulse: NO Intubation. May use BiPAP/CPAP Call FLOOR CLEANER * Full Code Date Activated Date Inactivated Comments 09/12/2023 4:56 PM 09/16/2023 9:25 AM Care Teams Blog Writer Relationship Specialty Start Date End Date Provider, Not In System [place] PCP - General 09/12/23
--- OUTSIDE RECORDS SUMMARY | 2024-11-24 23:11 | XMS_ITS | Encounter Summary ---
Author Organization [facility] Address [address] [place] [address] Care Team Providers Care Railroad Car Repair Supervisor Name Role Phone Farooq Lee MD Primary Care Provider [phone] Reason for Referral * Consultation (Routine) - Closed Specialty Diagnoses / Procedures Referred By Lorena campbell Referred To Contact Nephrology Diagnoses Chronic hyponatremia Sasha Lantigua MD [address] [facility] [address] [place] [address] Phone: tel: fax: [facility] [place] Nephrology, Bone & Mineral Metabolism [address] [facility], [address] [place] [address] Phone: tel: fax: Referral ID Status Reason Start Date Expiration Date V isits Requested Visits Authorized [id number] Closed Specialty Services Required 05/17/2024 11/16/2025 1 1 Encounter Details Date Type Department Care Team (Latest Contact Info) Description 05/17/2024 Community Orders Community Practice [address] [place] [address] Sasha Lantigua MD [address] [facility] [place] [address] Chronic hyponatremia (Primary Dx) Social [...] Description 05/25/2025 8:20 AM EST Office Visit [facility] [address] [facility] [address] [place] [phone] Cheryl Browne, REAL ESTATE SPECIALIST [address] [address] Scheduled Referrals Name Type Priority Associated Diagnoses Orde r Schedule Ambulatory referral to Nephrology Outpatient Referral Routine Chronic hyponatremia Expected: 05/17/2024 (Approximate), Expires: 11/15/2025 documented as of this encounter Visit Diagnoses Diagnosis Chronic hyponatremia- Primary Hyposmolality and/or hyponatremia documented in this encounter Care Teams Railroad Car Repair Supervisor Relationship Specialty Start Date End Date Farooq Lee MD [address] [facility] [address] [place] [address] PCP - General 06/22/24 documented as of this encounter
--- OUTSIDE RECORDS SUMMARY | 2024-11-24 23:11 | XMS_ITS | Encounter Summary ---
Author Organization Healthcare Address [address] [place] [address] Care Team Providers Care Oncology Research Rn Name Role Phone Farooq Lee MD Primary Care Provider [phone] Encounter Details Date Type Department Care Team (Latest Contact Info) Description 11/24/2024 Travel Social History Tobacco Use Types Packs/Day Years [...] Description 05/25/2025 8:20 AM EST Office Visit [address] [place] [phone] Cheryl Browne, QUARTER INSPECTOR [address] [address] documented as of this encounter Visit Diagnoses Not on filedocumented in this encounter Additional Health Concerns Assessment Noted Time A Body Mass Index follow-up plan has been documented for the patient 11/24/2024 11:51 AM EDT documented as of this encounter Care Teams Oncology Research Rn Relationship Specialty Start Date End Date Farooq Lee MD [facility] [address] [place] [address] PCP - General 06/22/24 documented as of this encounter
--- OUTSIDE RECORDS SUMMARY | 2024-11-24 23:11 | XMS_ITS | Clinical Summary ---
Author Organization [facility] Address [address] [facility] [address] [place] [address] Phone Care Team Providers Care University Administrative Assistant Name Role Phone Unavailable Unavailable Conditions or Problems No information available. Medications No information available. Medications Administered No information available. Allergies, Adverse Reactions, Alerts No information available. Results No information available. Plan of Care No information available. Procedures No information available. Vital Signs No information available. Immunizations No information available. Advance Directives No information available.
--- OUTSIDE RECORDS SUMMARY | 2024-11-24 23:11 | XMS_ITS | Clinical Summary ---
Author Organization [facility] Address [address] [place] [address] Care Team Providers Care Weatherization Technician Name Role Phone Farooq Lee MD Primary Care Provider [phone] Allergies No known active allergies Medications acetaminophen (Tylenol) 325 MG tablet Take 2 tablets (650 mg) by mouth every 6 (six) hours if needed. Under [place] law, monthly prescriptions (30 days) can be [...] (two) times a day with meals. Active oxybutynin XL (Ditropan-XL) 10 MG 24 hr tablet Take 1 tablet (10 mg) by mouth 1 (one) time each day. Do not crush, chew, or split. Active estradiol (Estrace) 0.1 MG/GM vaginal cream Insert 2 g into the vagina 1 (one) time each day. Active Cyanocobalamin (B-12 Compliance Injection) 1000 MCG/ML kit Inject as directed every 30 (thirty) days. Active bumetanide (Bumex) 2 MG tablet Take 1 tablet by mouth 2 times a day. 180 tablet 2 11/25/19 25 Active bumetanide (Bumex) 2 MG tablet Take 1 tablet (2 mg) by mouth 1 (one) time each day. 025 Discontin ued(Reord er) Encounters Date Type Department Care Team Description 11/24/2024 10:40 AM EDT Office Visit [facility] [address] [place] [address] Cheryl Browne, TITO Chronic hyponatremia (Primary Dx); CKD (chronic kidney disease) stage 2, GFR 60-89 ml/min; Essential hypertension; Localized edema; Chronic kidney disease-mineral and bone disorder 11/24/2024 Travel 09/08/2024 10:20 AM EDT Office Visit [facility] [address] [address] Cheryl Browne APRN CKD (chronic kidney [...] Pulse 69 11/24/2024 10:53 AM EDT Temperature 36.8 C (98.2 F) 09/08/2024 10:04 AM EDT Respiratory Rate 16 11/24/2024 10:53 AM EDT Oxygen Saturation 96% 11/24/2024 10:53 AM EDT Inhaled Oxygen Concentration - - Weight 55.3 kg (122 lb) 11/24/2024 10:53 AM EDT Height 162.6 cm (5' 4 ) 11/24/2024 10:53 AM EDT Body Mass Index 20.94 11/24/2024 10:53 AM EDT Plan of Treatment Upcoming Encounters Date Type Department Care Team (Late st Contact Info) Description 05/25/2025 8:20 AM EST Office Visit [facility] [address] [address] Cheryl Browne APRN [address] [address] Health Maintenance Due Date Last [...] 2000 UKY-Zoster Vaccines (1 of 2) 2000 UKY-RSV Vaccine: 60+ Years or (1 - Risk 60-74 years 1-dose series) 2010 [id number] Vaccine (2023- season) 2024 05/18/2023, 03/10/2022, 11/04/2021, Additional history exists UKY-DTaP,Tdap,and Td Vaccines (2 - Td or [...] patient's age to complete this topic [place] [address] Care Teams Weatherization Technician Relationship Specialty Start Date End Date Farooq Lee MD [address] [facility] [address] [place] [address] PCP - General 06/22/24
== END 2024-11-24 23:59 | disposition home or self-care (01) ==
LOC: LAB.DROPOF 23:09
PROVIDERS: PCP Internal Medicine; Visit Provider Internal Medicine
DX: N39.0 Urinary tract infection, site not specified (principal)
CPT/HCPCS: 87086; 87088; 87186

== ENCOUNTER 2025-01-03 11:22 | Outpatient (CLI) | payer MEDICARE, OTHER, SELFPAY ==
--- OUTSIDE RECORDS SUMMARY | 2024-11-24 10:40 | XMS_ITS | Encounter Summary ---
Author Organization [facility] Address [address] [place] [address] Care Team Providers Care Contract Design Agent Name Role Phone Farooq Lee MD Primary Care Provider [phone] Reason for Referral * Consultation (Routine) - Authorized Specialty Diagnoses / Procedures Referred By Lorena campbell Referred To Contact Diagnoses Chronic hyponatremia Cheryl Browne APRN [address] [address] Phone: tel: fax: Referral ID Status Reason Start Date Expiration Date V isits Requested Visits Authorized [id number] Authorized 11/24/2024 05/26/2026 1 1 Reason for [...] Description 11/24/2024 10:40 AM EDT Office Visit [facility] [address] [place] [address] Cheryl Browne APRN [address] [address] Chronic hyponatremia (Primary Dx); CKD [...] Miscellaneous Notes * Progress Notes - Cheryl Brwone APRN - 11/24/2024 10:40 AM EDT Nephrology [...] Labs scanned in to media tab of [facility] from an outside facility. Labs completed on [...] Description 05/25/2025 8:20 AM EST Office Visit [facility] [address] [facility] [address] [place] [address] Cheryl Browne APRN [address] [address] Scheduled Orders Name Type Priority [...] documented as of this encounter Care Teams Contract Design Agent Relationship Specialty Start Date End Date Farooq Lee MD [address] [place] [address] [address] [place] [address] PCP - General 06/22/24 documented as of this encounter
--- OUTSIDE RECORDS SUMMARY | 2025-01-03 11:29 | XMS_ITS | Clinical Summary ---
Author Organization [facility] Address [address] [facility] [address] [place] [address] Phone Care Team Providers Care Electroencephalographic Technician Name Role Phone Unavailable Unavailable Conditions or Problems No information available. Medications No information available. Medications Administered No information available. Allergies, Adverse Reactions, Alerts No information available. Results No information available. Plan of Care No information available. Procedures No information available. Vital Signs No information available. Immunizations No information available. Advance Directives No information available.
--- OUTSIDE RECORDS SUMMARY | 2025-01-03 11:34 | XMS_ITS | Encounter Summary ---
Author Organization Healthcare Address [address] [place] [address] Care Team Providers Care Dramatic Art Teacher Name Role Phone Farooq Lee MD Primary Care Provider [phone] Encounter Details Date Type Department Care Team [...] Description 05/25/2025 8:20 AM EST Office Visit [address] [place] [phone] Cheryl Browne, FREIGHT CONDUCTOR [address] [address] documented as of this encounter Visit Diagnoses Not on filedocumented in this encounter Additional Health Concerns Assessment Noted Time A Body Mass Index follow-up plan has been documented for the patient 11/24/2024 11:51 AM EDT documented as of this encounter Care Teams Dramatic Art Teacher Relationship Specialty Start Date End Date Farooq Lee MD [facility] [address] [place], [place] [address] PCP - General 06/22/24 documented as of this encounter
--- OUTSIDE RECORDS SUMMARY | 2025-01-03 11:34 | XMS_ITS | Encounter Summary ---
Author Organization Healthcare Address [address] [place] [address] Care Team Providers Care Genetics Nurse Name Role Phone Farooq Lee MD Primary Care Provider [phone] Encounter Details Date Type Department Care Team (Late Contact Info) Description 12/01/2024 Orders Only [facility] Nephrology [address] [place] [address] Arlyn Ramirez Social History Tobacco Use Types Packs/Day Years [...] Description 05/25/2025 8:20 AM EST Office Visit [facility] [address] [place] [address] Cheryl Browne, UNIT AIDE [address] [address] documented as of this encounter Visit Diagnoses Not on filedocumented in this encounter Additional Health Concerns Assessment Noted Time A Body Mass Index follow-up plan has been documented for the patient 11/24/2024 11:51 AM EDT documented as of this encounter Care Teams Genetics Nurse Relationship Specialty Start Date End Date Farooq Lee MD [address] [facility] [address] [place] [address] PCP - General 06/22/24 documented as of this encounter
--- OUTSIDE RECORDS SUMMARY | 2025-01-03 11:34 | XMS_ITS | Encounter Summary ---
Author Organization Healthcare Address [address] [place] [address] Care Team Providers Care Retail Field Supervisor Name Role Phone Farooq Lee MD Primary Care Provider [phone] Encounter Details Date Type Department Care Team (Late st Contact Info) Description 12/06/2024 Telephone [facility] [address] [place] [address] Arlyn Ramirez Social History Tobacco Use Types [...] on file documented as of this encounter Miscellaneous Notes * Telephone Encounter - Arlyn Ramirez - 12/06/2024 11:26 AM EDT Pt son called and said since last visit with increasing her fluid pills her swelling has gotten worse, now she is experiencing burning and tingling in her legs. He wanted to discuss with us first before calling her PCP. Cheryl was notified and she suggested pt be admitted to better manage her fluid without raising her sodium levels. If its easier for her son he can take her to see her PCP but it she is experiencing soa then she needs to go to ER. Pt son stated that she does not have any symptoms of soa and will call her PCP first. He will keep us updated with any changes. documented in this encounter Plan of Treatment Upcoming Encounters Date Type Department Care Team (Late st Contact Info) Description 05/25/2025 8:20 AM EST Office Visit [facility] [address] [facility] [address] [place] [phone] Cheryl Browne, TITO [address] [address] documented as of this encounter Visit Diagnoses Not on filedocumented in this encounter Additional Health Concerns Assessment Noted Time A Body Mass Index follow-up plan has been documented for the patient 11/24/2024 11:51 AM EDT documented as of this encounter Care Teams Retail Field Supervisor Relationship Specialty Start Date End Date Farooq Lee MD [address] [facility] [address] [place] [address] PCP - General 06/22/24 documented as of this encounter
--- OUTSIDE RECORDS SUMMARY | 2025-01-03 11:34 | XMS_ITS | Clinical Summary ---
Author Organization [facility] Address [address] [place] [address] Care Team Providers Care Welder Oxyhydrogen Name Role Phone Farooq Lee MD Primary Care Provider [phone] Allergies No known active allergies Medications acetaminophen (Tylenol) 325 MG tablet Take 2 tablets (650 mg) by mouth every 6 (six) hours if needed. Under [place] law, monthly prescriptions (30 days) can be [...] 2 times a day. 180 tablet 2 Active Encounters Date Type Department Care Team Description 12/06/2024 Telephone [facility] [address] [place], [place] [address] Arlyn Ramirez 12/01/2024 Orders Only [facility] Nephrology [address] [place] [address] Arlyn Ramirez 11/24/2024 10:40 AM EDT Office Visit [facility] [address] [place] [address] Cheryl Browne APRN Chronic hyponatremia (Primary Dx); CKD (chronic kidney disease) stage 2, GFR 60-89 ml/min; Essential hypertension; Localized edema; Chronic kidney disease-mineral and bone disorder 11/24/2024 Travel from Last 3 Months Immunizations Immunization [...] Description 05/25/2025 8:20 AM EST Office Visit [facility] [address] [place] [address] Cheryl Browne, TELEVISION NEWS PHOTOGRAPHER [address] [address] Health Maintenance Due Date Last Done Comments UKY-Bone Density Scan 1950 UKY-Depression Screening 1950 UKY-Hepatitis C Screening 1950 UKY-Medicare Annual Wellness (AWV) 1950 UKY-/Child/Adol SDOH Screenings 1950 UKY- SDOH Screenings 1968 UKY-Adult SDOH Screenings 1968 CT Colonography 1995 Colonoscopy 1995 FIT-DNA 1995 FIT 1995 FOBT 1995 Sigmoidoscopy 1995 UKY-Colorectal Cancer Screening 1995 UKY-Breast Cancer Screening 2000 UKY-Pneumococcal Vaccine: 50+ Years (1 of 1 - PCV) 2000 UKY-Zoster Vaccines (1 of 2) 2000 UKY-RSV Vaccine: 60+ Years or (1 - Risk 60-74 years 1-dose series) 2010 [id number] Vaccine ( - 2023- season) 2024 05/18/2023, 03/10/2022, 11/04/2021, Additional history exists UKY-Influenza Vaccine (#1) 2025 03/30/2024 UKY-DTaP,Tdap,and Td Vaccines (2 - Td or Tdap) 10/07/2032 10/07/2022 HPV Vaccines Aged Out No longer eligi [...] patient's age to complete this topic Insurance H[employer] MEDICARE Care Teams Welder Oxyhydrogen Relationship Specialty Start Date End Date Farooq Lee MD [address] [place] [address] [address] [place] [address] PCP - General 06/22/24
--- OUTSIDE RECORDS SUMMARY | 2025-01-03 11:34 | XMS_ITS | Encounter Summary ---
Author Organization [facility] Address [address] [place] [address] Care Team Providers Care Deaf/Hard Of Hearing Specialist Name Role Phone Farooq Lee MD Primary Care Provider [phone] Reason for Referral * Consultation (Routine) - Closed Specialty Diagnoses / Procedures Referred By Lorena campbell Referred To Contact Nephrology Diagnoses Chronic hyponatremia Sasha Lantigua MD [address] [facility] [address] [place] [address] Phone: tel: fax: [facility] Bone [facility] Mineral Metabolism [address] [facility], [address] [place] [address] Phone: tel: fax: Referral ID Status Reason Start Date Expiration Date V isits Requested Visits Authorized [id number] Closed Specialty Services Required 05/17/2024 11/16/2025 1 1 Encounter Details Date Type Department Care Team (Latest Contact Info) Description 05/17/2024 Community Orders Community Practice [address] [place] [address] Sasha Lantigua MD [address] [facility] [address] [place] [address] Chronic hyponatremia (Primary Dx) Social [...] 8:20 AM EST Office Visit [facility] [address] [facility] [address] [place] [phone] Cheryl Browne, ENROLLMENT SERVICES DEAN [address] [address] Scheduled Referrals Name Type Priority Associated Diagnoses Orde r Schedule Ambulatory referral to Nephrology Outpatient Referral Routine Chronic hyponatremia Expected: 05/17/2024 (Approximate), Expires: 11/15/2025 documented as of this encounter Visit Diagnoses Diagnosis Chronic hyponatremia- Primary Hyposmolality and/or hyponatremia documented in this encounter Care Teams Deaf/Hard Of Hearing Specialist Relationship Specialty Start Date End Date Farooq Lee MD [address] [facility] [address] [place] [address] PCP - General 06/22/24 documented as of this encounter
--- OUTSIDE RECORDS SUMMARY | 2025-01-03 11:35 | XMS_ITS | Referral Summary ---
Author Organization [employer] ([place], [place], [place], [place]) Address [address] [place] [address] Care Team Providers Care Client Strategist Name Role Phone Provider, Not In System [...] off services in your home? No 09/12/2023 Food Insecurity Answer Date Recorded Within [...] Do you speak a language other than Montenegrin at [facility]? No 09/12/2023 Do you want help with school or training? For example, starting or completing job training or getting a high school diploma, GED or equivalent. No 09/12/2023 Physical Activity Answer Date Recorded Number of minutes of exercise per week 0 09/12/2023 Substance Use Answer Date Recorded How [...] Advance Directives For more information, please contact: [phone] * DNR - Limited Additional Intervention (Latest Code Status on File) Date Activated Date Inactivated Comments 09/16/2023 9:25 AM 09/25/2023 12:24 PM If no pulse: NO intervention If has pulse: NO Intubation. May use BiPAP/CPAP Call CELLOPHANER * Full Code Date Activated Date Inactivated Comments 09/12/2023 4:56 PM 09/16/2023 9:25 AM Care Teams Client Strategist Relationship Specialty Start Date End Date Provider, Not In System [place] PCP - General 09/12/23
--- OUTSIDE RECORDS SUMMARY | 2025-01-03 11:35 | XMS_ITS | Clinical Summary ---
Author Organization [employer] ([place], [place], [place], [place]) Address [address] [place] [address] Care Team Providers Care College Tutor Name Role Phone Provider, Not In System [...] Do you speak a language other than Sri [place]ankan at [facility]? No 09/12/2023 Do you want help with [...] Medicare Initial AWV [id number] 2016 COVID-19 VACCINE (2023-2 5 season) 2024 05/18/2023, 03/10/2022, 11/04/2021, Additional history exists Falls Risk Screening 06/14/2024 Influenza Vaccine (#1) 2025 03/13/2021 Respiratory Syncytial Virus (RSV) Adult or (1 - 1-dose 75+ series) 2025 DTAP/TDAP/TD VACCINES (2 - T d or Tdap) 10/07/2032 10/07/2022 Insurance MEDICARE PART A B [facility] SUPP Advance Directives For more information, please contact: [phone] * DNR - Limited Additional Intervention (Latest Code Status on File) Date Activated Date Inactivated Comments 09/16/2023 9:25 AM 09/25/2023 12:24 PM If no pulse: NO intervention If has pulse: NO Intubation. May use BiPAP/CPAP Call HEAD SCORER * Full Code Date Activated Date Inactivated Comments 09/12/2023 4:56 PM 09/16/2023 9:25 AM Care Teams College Tutor Relationship Specialty Start Date End Date Provider, Not In System [place] PCP - General 09/12/23
[2025-01-03 12:22] LABS: Anion Gap 10.1 mEq/L (5-15); Blood Urea Nitrogen 20 mg/dl (7-17); Calcium 9.6 mg/dl (8.4-10.2); Carbon Dioxide 28 mmol/L (22.0-30.0); Chloride 104 mmol/L (98-107); Creatinine,Serum 1.00 mg/dl (0.52-1.04); Estimated Glomerular Filt Rate 54 ml/min (>60); GFR (African American) 66 ML/MIN (>60); Glucose 85 mg/dl (74-100); Potassium 5.1 mmoL/L (3.5-5.1); Sodium 137 mmol/L (136-145)
== END 2025-01-03 23:59 | disposition home or self-care (01) ==
LOC: LAB 11:24
PROVIDERS: PCP Internal Medicine; Visit Provider Internal Medicine
DX: E87.1 Hypo-osmolality and hyponatremia (principal); R60.9 Edema, unspecified
CPT/HCPCS: 36415; 80048

== ENCOUNTER 2025-02-06 15:45 | Outpatient (CLI) | payer MEDICARE, OTHER, SELFPAY ==
--- OUTSIDE RECORDS SUMMARY | 2024-06-29 20:00 | XMS_ITS | Continuity of Care Document ---
Author Organization [address] [place] [id number] [place] [address] [address] [place] [address] Phone Care Team Providers Care R D Internship Name Role Phone Refugio Webber NP Unavailable Unavailable Allergies, Adverse Reactions, Alerts Substance Reaction Status Criticality No Known Allergies Active No Inform ation Medications Medication Instructions Dosage Effective Dates (start - stop) Status Comments cefdinir 300 mg capsule TAKE ONE CAPSULE BY MOUTH TWICE DAILY FOR 7 DAYS -- FINISH ALL MEDICINE -- - Active Procedures Procedure Date Trim dystrophic nail(s) in length, any n umber Advance Directives Directive Yes / No Effective Date File Name No Information Encounters Encounter Description Practice Location Reason(s) For Visit Diagnoses Date Provider Providers Copied on Encounter [address] [place] [address], [address] [address], [place], [place], [id number], tel:[phone] [facility] Nail dystrophyOnychogry phosisOther specified peripheral vascular diseasesOther abnormalities of gait and mobility [address] [place], [place]. [address] [place] [address], [address] [place] [address], [place], [place], [id number], tel:[phone] [facility] No Information [address] [place], [place]. Family History Family Member Type Diagnosis Age At Onset No Information Payers Payer name Insurance type Covered green party ID Authoriza tion(s) Medicare [place] MB [id number] [employer] Supplemental CI [id number] Social History Type Description Quantity Date Captured Comments Sex Female Smoking Status No Information Chief Complaint And Reason For Visit No Information Reason For Referral Reason For Referral No Information History Of Present Illness Encounter Date Complaint History Of Prese nt Illness No Information Functional Status Date Functional Assessmen t No Information Instructions Date Instruction Additional Infor mation PT instructed to con tinue use of DME equipement for safety, mobility, and reducing risk of falls/injury. Will continue to monitor. Pt denies recent falls in the past 3 months. Related to Other abnormalities of gait and mobility All documented dystr ophic nails were reduced in length as needed to prevent pain and other symptoms. Related to Nail dystrophy All documented thick ened nails were debrided using a rotary tool and nail nipper. Related to Onychogryphosis Discussed using comp ression stockings to assist in localize swelling and venous return, and the emt intermediate benefits of using compression stockings. Reinforced the importance of proper adherence to using the jamey hose, and compression stockings. Will continue to monitor. Related to Other specified peripheral vascular diseases Assessments Type Assessment Date assessment Nail dystrophy assessment Onychogryphosis assessment Other specified peripheral vascu lar diseases assessment Other abnormalities of gait and mobility Patient Care Teams Name Effective Dates (start - stop) Status Members No Information
[2025-02-06 17:49] LABS: Hematocrit 36.5 % (37.0-47.0); Hemoglobin 12.2 g/dL (12.2-16.2); Immature Granulocytes % 0.2 %; Mean Corpuscular HGB Conc 33.4 g/dL (31.8-35.4); Mean Corpuscular Hemoglobin 30.3 pg (27.0-31.2); Mean Corpuscular Volume 90.6 fl (81-99); Nucleated Red Blood Cells % 0 %; Platelet Count 171 K/mm3 (142-424); Red Blood Count 4.03 M/mm3 (4.20-5.40); Red Cell Distribution Width-SD 43.2 fL; White Blood Count 6.0 K/mm3 (4.8-10.8)
[2025-02-06 18:19] LABS: Albumin Level 4.5 g/dl (3.5-5.0); Chloride 102 mmol/L (98-107); Potassium 4.4 mmoL/L (3.5-5.1); Sodium 138 mmol/L (136-145)
[2025-02-06 18:22] LABS: Alanine Aminotransferase 16 U/L (12-78); Albumin/Globulin Ratio 1.9 (1.1-1.8); Alkaline Phosphatase 63 U/L (38-126); Anion Gap 11.4 mEq/L (5-15); Aspartate Amino Transferase 27 U/L (14-36); Bilirubin,Total 0.6 mg/dl (0.2-1.3); Blood Urea Nitrogen 20 mg/dl (7-17); Carbon Dioxide 29 mmol/L (22.0-30.0); Creatinine,Serum 1.00 mg/dl (0.52-1.04); Estimated Glomerular Filt Rate 54 ml/min (>60); GFR (African American) 66 ML/MIN (>60); Globulin 2.4 g/dL (1.3-3.2); Glucose 96 mg/dl (74-100); Total Protein,Serum 6.9 g/dl (6.3-8.2)
[2025-02-06 18:23] LABS: Calcium 9.3 mg/dl (8.4-10.2); Magnesium 2.1 mg/dl (1.6-2.3)
[2025-02-06 18:54] LABS: Thyroid Stimulating Hormone 1.80 uIU/mL (0.465-4.68)
--- OUTSIDE RECORDS SUMMARY | 2025-02-07 13:12 | XMS_ITS | Encounter Summary ---
Author Organization Healthcare Address [address] [place] [id number] Care Team Providers Care Oral Surgery Physician Name Role Phone Farooq Lee MD Primary Care Provider [phone] Encounter Details Date Type Department Care Team (Late st Contact Info) Description 01/24/2025 Telephone [facility] [address] [facility] [address] [place] [address] Arlyn Ramirez Social History Tobacco [...] * Telephone Encounter - Arlyn Ramirez - 01/24/2025 1:58 PM EDT pt son called about her experiencing weakness and dizzy spells within the last week. She has dizzy spells 2-3x a week. He said that her PCP may have lowered one of her b/p meds but he doesn't remember which one. She has good fluid intake and still retaining fluid in legs but hasn't gotten worse. Hewanted to contact Cheryl Browne first since she has been managing her medicines and will reach out to PCP if needed. Cheryl requested recent labs and b/p readings. Her recent labs were scanned in and reviewed and her b/p yesterday was 94/70. Per pt son PCP decreased nifedipine to 30 mg daily, so Cheryl suggested to decrease irbesartan to 75mg daily. Pt son understood the changes and will have pt take the new dose of medicine tomorrow. I will checkback in on them on Wednesday to see how pt is adjusting and b/p check. documented in this encounter Plan of Treatment Upcoming Encounters Date Type Department Care Team (Late st Contact Info) Description 05/25/2025 8:20 AM EST Office Visit [facility] [address] [facility] [address] [place] [phone] Cheryl Browne, INDUSTRIAL ELECTRICAL TECHNICIAN [address] [address] documented as of this encounter Visit Diagnoses Not on filedocumented in this encounter Additional Health Concerns Assessment Noted Time A Body Mass Index follow-up plan has been documented for the patient 11/24/2024 11:51 AM EDT documented as of this encounter Care Teams Oral Surgery Physician Relationship Specialty Start Date End Date Farooq Lee MD [address] [facility] [address] [place] [address] PCP - General 06/22/24 documented as of this encounter
--- OUTSIDE RECORDS SUMMARY | 2025-02-07 13:12 | XMS_ITS | Clinical Summary ---
Author Organization [facility] Address [address] [facility] [address] [place] [address] Phone Care Team Providers Care Heat Welder Plastics Name Role Phone Unavailable Unavailable Conditions or Problems No information available. Medications No information available. Medications Administered No information available. Allergies, Adverse Reactions, Alerts No information available. Results No information available. Plan of Care No information available. Procedures No information available. Vital Signs No information available. Immunizations No information available. Advance Directives No information available.
--- OUTSIDE RECORDS SUMMARY | 2025-02-07 13:12 | XMS_ITS | Clinical Summary ---
Author Organization [employer] ([place], [place], [place], [place]) Address [address] [place] [address] Care Team Providers Care Balance Weigher Name Role Phone Provider, Not In System [...] Do you speak a language other than Omani at [facility]? No 09/12/2023 Do you want help [...] 10/07/2032 10/07/2022 Insurance MEDICARE PART A B [facility] SUPP Advance Directives For more information, please contact: [phone] * DNR - Limited Additional Intervention (Latest Code Status on File) Date Activated Date Inactivated Comments 09/16/2023 9:25 AM 09/25/2023 12:24 PM If no pulse: NO intervention If has pulse: NO Intubation. May use BiPAP/CPAP Call MAIL MANAGER * Full Code Date Activated Date Inactivated Comments 09/12/2023 4:56 PM 09/16/2023 9:25 AM Care Teams Balance Weigher Relationship Specialty Start Date End Date Provider, Not In System [place] PCP - General 09/12/23
--- OUTSIDE RECORDS SUMMARY | 2025-02-07 13:12 | XMS_ITS | Clinical Summary ---
Author Organization [facility] Address [address] [place] [address] Care Team Providers Care Business Process Analyst Name Role Phone Farooq Lee MD Primary Care Provider [phone] Allergies No known active allergies Medications acetaminophen (Tylenol) 325 MG tablet Take 2 tablets (650 mg) by mouth every 6 (six) hours if needed. Under [place] law, monthly prescriptions (30 days) can be [...] mouth 2 (two) times a day. Active magnesium oxide (Mag-Ox) 400 mg [...] crush, chew, or split. Active Vit-Fe Fumarate-FA (/Iro n) 28-0.8 MG tablet Take by mouth. Activ e rOPINIRole (Requip) 1 MG tablet Take 2 tablets (2 mg) by mouth every night. Active senna-docusat e (Jen-Colace) 8.6-50 MG tablet Take 1 tablet [...] vagina 1 (one) time each day. Active Cyanocobalami n (B-12 Compliance Injection) 1000 MCG/ML kit Inject as directed every 30 (thirty) days. Active bumetanide (Bumex) 2 MG tablet Take 1 tablet by mouth 2 times a day. 180 tablet 2 12/02/19 25 Active irbesartan (Avapro) 75 MG tablet Take 1 tablet by mouth daily. 30 tablet 11 01/25/20 25 026 Active irbesartan (Avapro) 150 MG tablet Take 1 tablet (150 mg) by mouth 1 (one) time each day. 025 Discontinued Encounters Date Type Department Care Team Description 01/24/2025 Telephone [facility] [address] [place], [place] [address] Arlyn Ramirez 01/24/2025 Orders Only [facility] [address] [place] [address] Arlyn Ramirez 12/06/2024 Telephone [facility] [address] [place], [place] [address] Arlyn Ramirez 12/01/2024 Orders Only [facility] Nephrology [address] [place] [address] Arlyn Ramirez 11/24/2024 10:40 AM EDT Office Visit [facility] [address] [place] [address] Cheryl Browne APRN Chronic hyponatremia (Primary [...] Description 05/25/2025 8:20 AM EST Office Visit [facility] [address] [place] [address] Cheryl Browne, MID LEVEL CLINICIAN [address] [address] Health Maintenance Due Date Last [...] - Risk 60-74 years 1-dose series) 2010 [id number] Vaccine ( - 2023- season) 2024 05/18/2023, [...] to complete this topic [place] [address] Care Teams Business Process Analyst Relationship Specialty Start Date End Date Farooq Lee MD [address] [facility] [address] [place] [address] PCP - General 06/22/24
--- OUTSIDE RECORDS SUMMARY | 2025-02-07 13:12 | XMS_ITS | Encounter Summary ---
Author Organization Healthcare Address [address] [place] [address] Care Team Providers Care Rn Coronary Care Unit Name Role Phone Farooq Lee MD Primary Care Provider [phone] Encounter Details Date Type Department Care Team (Late Contact Info) Description 01/24/2025 Orders Only [address] [place] [address] Arlyn Ramirez Social History Tobacco Use [...] Description 05/25/2025 8:20 AM EST Office Visit [address] [place] [address] Cheryl Browne, TITO [address] [address] documented as of this encounter Visit Diagnoses Not on filedocumented in this encounter Additional Health Concerns Assessment Noted Time A Body Mass Index follow-up plan has been documented for the patient 11/24/2024 11:51 AM EDT documented as of this encounter Care Teams Rn Coronary Care Unit Relationship Specialty Start Date End Date Farooq Lee MD [address] [place], [place] [address]E [address] [place] [address] PCP - General 06/22/24 documented as of this encounter
--- OUTSIDE RECORDS SUMMARY | 2025-02-07 13:12 | XMS_ITS | Encounter Summary ---
Author Organization [facility] Address [address] [place] [address] Care Team Providers Care Tankroom Tender Name Role Phone Farooq Lee MD Primary Care Provider [phone] Reason for Referral * Consultation (Routine) - Closed Specialty Diagnoses / Procedures Referred By Lorena campbell Referred To Contact Nephrology Diagnoses Chronic hyponatremia Sasha Lantigua MD [address] [facility] [address] [place] [address] Phone: tel: fax: [facility] Nephrology, Bone & Mineral Metabolism [address] [facility], [address] [place] [address] Phone: tel: fax: Referral ID Status Reason Start Date Expiration Date V isits Requested Visits Authorized [id number] Closed Specialty Services Required 05/17/2024 11/16/2025 1 1 Encounter Details Date Type Department Care Team (Latest Contact Info) Description 05/17/2024 Community Orders Community Practice [address] [place] [address] Sasha Lantigua MD [address] [facility] [address] [place] [address] Chronic hyponatremia (Primary Dx) Social [...] Description 05/25/2025 8:20 AM EST Office Visit [facility] [address] [place] [facility] [address] [place] [phone] Cheryl Browne, POWER SHOVEL OPERATOR [address] [address] Scheduled Referrals Name Type Priority Associated Diagnoses Orde r Schedule Ambulatory referral to Nephrology Outpatient Referral Routine Chronic hyponatremia Expected: 05/17/2024 (Approximate), Expires: 11/15/2025 documented as of this encounter Visit Diagnoses Diagnosis Chronic hyponatremia- Primary Hyposmolality and/or hyponatremia documented in this encounter Care Teams Tankroom Tender Relationship Specialty Start Date End Date Farooq Lee MD [address] [facility] [address] [place] [address] PCP - General 06/22/24 documented as of this encounter
--- OUTSIDE RECORDS SUMMARY | 2025-02-07 13:12 | XMS_ITS | Referral Summary ---
Author Organization [employer] ([place], [place], [place]) Address [address] [place] [address] Care Team Providers Care Career Resource Technician Name Role Phone Provider, Not In System [...] Do you speak a language other than Argentine at [facility]? No 09/12/2023 Do you want help with [...] Advance Directives For more information, please contact: [phone] * DNR - Limited Additional Intervention (Latest Code Status on File) Date Activated Date Inactivated Comments 09/16/2023 9:25 AM 09/25/2023 12:24 PM If no pulse: NO intervention If has pulse: NO Intubation. May use BiPAP/CPAP Call BEVERAGE HOST * Full Code Date Activated Date Inactivated Comments 09/12/2023 4:56 PM 09/16/2023 9:25 AM Care Teams Career Resource Technician Relationship Specialty Start Date End Date Provider, Not In System [place] PCP - General 09/12/23
== END 2025-02-06 23:59 | disposition home or self-care (01) ==
LOC: LAB.DROPOF 02-07 13:08
PROVIDERS: PCP Internal Medicine; Visit Provider Internal Medicine
DX: E78.5 Hyperlipidemia, unspecified (principal); I10 Essential (primary) hypertension; R25.2 Cramp and spasm; R60.9 Edema, unspecified; R53.1 Weakness; R53.83 Other fatigue
CPT/HCPCS: 80053; 83735; 84443; 85025

== ENCOUNTER 2025-03-21 13:00 | Outpatient (CLI) | payer MEDICARE, OTHER, SELFPAY ==
[2025-03-21 17:31] LABS: Hematocrit 33.6 % (37.0-47.0); Hemoglobin 11.4 g/dL (12.2-16.2); Immature Granulocytes % 0.3 %; Mean Corpuscular HGB Conc 33.9 g/dL (31.8-35.4); Mean Corpuscular Hemoglobin 30.6 pg (27.0-31.2); Mean Corpuscular Volume 90.3 fl (81-99); Nucleated Red Blood Cells % 0 %; Red Blood Count 3.72 M/mm3 (4.20-5.40); Red Cell Distribution Width-SD 41.9 fL; White Blood Count 6.4 K/mm3 (4.8-10.8)
[2025-03-21 18:03] LABS: Platelet Count 104 K/mm3 (142-424)
[2025-03-21 18:44] LABS: Anion Gap 15.8 mEq/L (5-15); Blood Urea Nitrogen 17 mg/dl (7-17); Calcium 9.4 mg/dl (8.4-10.2); Carbon Dioxide 25 mmol/L (22.0-30.0); Chloride 100 mmol/L (98-107); Creatinine,Serum 1.10 mg/dl (0.52-1.04); Estimated Glomerular Filt Rate 48 ml/min (>60); GFR (African American) 59 ML/MIN (>60); Glucose 79 mg/dl (74-100); Potassium 4.8 mmoL/L (3.5-5.1); Sodium 136 mmol/L (136-145)
--- OUTSIDE RECORDS SUMMARY | 2025-03-23 00:41 | XMS_ITS | Clinical Summary ---
Author Organization [facility] Address [address] [facility] [address] [place] [address] Phone Care Team Providers Care Lang Path Therapist Name Role Phone Unavailable Unavailable Conditions or Problems No information available. Medications No information available. Medications Administered No information available. Allergies, Adverse Reactions, Alerts No information available. Results No information available. Plan of Care No information available. Procedures No information available. Vital Signs No information available. Immunizations No information available. Advance Directives No information available.
--- OUTSIDE RECORDS SUMMARY | 2025-03-23 00:41 | XMS_ITS | Encounter Summary ---
Author Organization [facility] Address [address] [place] [address] Care Team Providers Care Furnace Installer Name Role Phone Farooq Lee MD Primary Care Provider [phone] Reason for Referral * Consultation (Routine) - Closed Specialty Diagnoses / Procedures Referred By Lorena campbell Referred To Contact Nephrology Diagnoses Chronic hyponatremia Sasha Lantigua MD [address] [facility] [address] [place] [address] Phone: tel: fax: [facility] Nephrology, Bone & Mineral Metabolism [address] [facility], [address] [place] [address] Phone: tel: fax: Referral ID Status Reason Start Date Expiration Date V isits Requested Visits Authorized [id number] Closed Specialty Services Required 05/17/2024 11/16/2025 1 1 Encounter Details Date Type Department Care Team (Latest Contact Info) Description 05/17/2024 Community Orders Community Practice [address] [place] [address] Sasha Lantigua MD 14[address] [facility] [address] [place] [address] Chronic hyponatremia (Primary Dx) Social [...] Description 05/25/2025 8:20 AM EST Office Visit [facility] [address] [place] [facility] [address] [place] [phone] Cheryl Browne, MANUFACTURED BUILDINGS REPAIRER [address] [address] Scheduled Referrals Name Type Priority Associated Diagnoses Orde r Schedule Ambulatory referral to Nephrology Outpatient Referral Routine Chronic hyponatremia Expected: 05/17/2024 (Approximate), Expires: 11/15/2025 documented as of this encounter Visit Diagnoses Diagnosis Chronic hyponatremia- Primary Hyposmolality and/or hyponatremia documented in this encounter Care Teams Furnace Installer Relationship Specialty Start Date End Date Farooq Lee MD [address] [facility] [address] [place] [address] PCP - General 06/22/24 documented as of this encounter
--- OUTSIDE RECORDS SUMMARY | 2025-03-23 00:42 | XMS_ITS | Encounter Summary ---
Author Organization Healthcare Address [address] [place] [address] Care Team Providers Care Match Up Worker Name Role Phone Farooq Lee MD Primary Care Provider [phone] Encounter Details Date Type Department Care Team (Late st Contact Info) Description 01/24/2025 Telephone [facility] [address] [facility] [address] [place] [address] Arlyn Ramirez Social History Tobacco [...] 8:20 AM EST Office Visit [facility] [address] [facility] [address] [place] [phone] Cheryl Browne, COMPLIANCE AUDITOR [address] [address] documented as of this encounter Visit Diagnoses Not on filedocumented in this encounter Additional Health Concerns Assessment Noted Time A Body Mass Index follow-up plan has been documented for the patient 11/24/2024 11:51 AM EDT documented as of this encounter Care Teams Match Up Worker Relationship Specialty Start Date End Date Farooq Lee MD 12[address] [facility] [address] [place] [address] PCP - General 06/22/24 documented as of this encounter
--- OUTSIDE RECORDS SUMMARY | 2025-03-23 00:42 | XMS_ITS | Encounter Summary ---
Author Organization Healthcare Address [address] [place] [address] Care Team Providers Care Supervisor Payroll Name Role Phone Farooq Lee MD Primary Care Provider [phone] Encounter Details Date Type Department Care Team (Late Contact Info) Description 01/24/2025 Orders Only [address] [place] [address] Arlyn Ramirez Social History Tobacco Use [...] Description 05/25/2025 8:20 AM EST Office Visit [address] [place] [address] Cheryl Browne, TITO [address] [address] documented as of this encounter Visit Diagnoses Not on filedocumented in this encounter Additional Health Concerns Assessment Noted Time A Body Mass Index follow-up plan has been documented for the patient 11/24/2024 11:51 AM EDT documented as of this encounter Care Teams Supervisor Payroll Relationship Specialty Start Date End Date Farooq Lee MD [address] [place], [place] [address]E [address] [place] [address] PCP - General 06/22/24 documented as of this encounter
--- OUTSIDE RECORDS SUMMARY | 2025-03-23 00:42 | XMS_ITS | Clinical Summary ---
Author Organization [facility] Address [address] [place] [address] Care Team Providers Care Pharmacy Associate Name Role Phone Farooq Lee MD Primary Care Provider [phone] Allergies No known active allergies Medications acetaminophen (Tylenol) 325 MG tablet Take 2 tablets (650 mg) by mouth every 6 (six) hours if needed. Under [place] law, monthly prescriptions (30 days) can be [...] 2 times a day. 180 tablet 2 5 Active irbesartan (Avapro) 75 MG tablet Take 1 tablet by mouth daily. 30 tablet 11 5 01/25/20 26 Active Encounters Date Type Department Care Team Description 01/24/2025 Telephone [facility] [address] [place] [address] Arlyn Ramirez 01/24/2025 Orders Only [facility] [address] [place] [address] Arlyn Ramirez from Last 3 Months Immunizations Immunization Administration [...] Description 05/25/2025 8:20 AM EST Office Visit Psychiatric [address] [place] [address] Cheryl Browne, INTEGRATION SOFTWARE ENGINEER [address] [address] Health Maintenance Due Date Last Done Comments [facility]-Bone Density Scan 1950 [facility]-Depression Screening 1950 [facility]-Hepatitis C Screening 1950 [facility]-Medicare Annual Wellness (AWV) 1950 [facility]-Infant/Child/Adol SDOH Screenings 1950 [facility]- SDOH Screenings 1968 [facility]-Adult SDOH Screenings 1968 CT Colonography 1995 Colonoscopy 1995 FIT-DNA 1995 FIT 1995 FOBT 1995 Sigmoidoscopy 1995 [facility]-Colorectal Cancer Screening 1995 [facility]-Pneumococcal Vaccine: 50+ Years (1 of 1 - PCV) 2000 [facility]-Zoster Vaccines (1 of 2) 2000 [id number] Vaccine ( - 2024- season) 2025 05/18/2023, 03/10/2022, 11/04/2021, Additional history exists [facility]-Influenza Vaccine (#1) 2025 03/30/2024 [facility]-RSV Vaccine: 60+ Years or (1 - [...] patient's age to complete this topic Insurance [facility] [address] MEDICARE Care Teams Pharmacy Associate Relationship Specialty Start Date End Date Farooq Lee MD [facility] [address] [place] [address] PCP - General 06/22/24
--- OUTSIDE RECORDS SUMMARY | 2025-03-23 00:42 | XMS_ITS | Clinical Summary ---
Author Organization [employer] ([place], [place], [place], [place]) Address [address] [place] [address] Care Team Providers Care Administrative Director Name Role Phone Provider, Not In [...] Do you speak a language other than Serbian at [facility]? No 09/12/2023 Do you [...] Screening (12+) 1962 Hepatitis C Screening 1968 Pneumococcal 50+ years (1 of 1 - PCV) 2000 Shingles Vaccine (Zoster) (1 of 2) 2000 Medicare Initial AWV [id number] 2016 Falls Risk Screening 06/14/2024 COVID-19 VACCINE (7 - 2024-2 6 season) 2025 05/18/2023, 03/10/2022, 11/04/2021, Additional history exists Influenza Vaccine (#1) 2025 03/13/2021 Respiratory Syncytial Virus (RSV) Adult or (1 - 1-dose 75+ series) 2025 DTAP/TDAP/TD VACCINES (2 - T d or Tdap) 10/07/2032 10/07/2022 Insurance MEDICARE PART A B [facility] SUPP Advance Directives For more information, please contact: [phone] * DNR - Limited Additional Intervention (Latest Code Status on File) Date Activated Date Inactivated Comments 09/16/2023 9:25 AM 09/25/2023 12:24 PM If no pulse: NO intervention If has pulse: NO Intubation. May use BiPAP/CPAP Call NETWORK INTELLIGENCE ANALYST * Full Code Date Activated Date Inactivated Comments 09/12/2023 4:56 PM 09/16/2023 9:25 AM Care Teams Administrative Director Relationship Specialty Start Date End Date Provider, Not In System [place] PCP - General 09/12/23
--- OUTSIDE RECORDS SUMMARY | 2025-03-23 00:42 | XMS_ITS | Referral Summary ---
Author Organization [employer] ([place], [place], [place], [place]) Address [address] [place] [address] Care Team Providers Care Ops Manager Name Role Phone Provider, Not In System [...] Do you speak a language other than Bahamian at [facility]? No 09/12/2023 Do you want help with [...] Advance Directives For more information, please contact: [phone] * DNR - Limited Additional Intervention (Latest Code Status on File) Date Activated Date Inactivated Comments 09/16/2023 9:25 AM 09/25/2023 12:24 PM If no pulse: NO intervention If has pulse: NO Intubation. May use BiPAP/CPAP Call RN ENDOCRINOLOGY * Full Code Date Activated Date Inactivated Comments 09/12/2023 4:56 PM 09/16/2023 9:25 AM Care Teams Ops Manager Relationship Specialty Start Date End Date Provider, Not In System [place] PCP - General 09/12/23
== END 2025-03-21 23:59 ==
LOC: LAB.DROPOF 03-23 00:40
PROVIDERS: PCP Internal Medicine; Visit Provider Internal Medicine
DX: R60.9 Edema, unspecified (principal); R53.83 Other fatigue
CPT/HCPCS: 80048; 85025

== ENCOUNTER 2025-05-09 13:28 | Outpatient (CLI) | payer MEDICARE, OTHER, SELFPAY ==
--- OUTSIDE RECORDS SUMMARY | 2025-05-09 13:31 | XMS_ITS | Clinical Summary ---
Author Organization [facility] Address [address] [facility] [address] [place] [address] Phone Care Team Providers Care President And Chief Operating Officer Name Role Phone Unavailable Unavailable Conditions or Problems No information available. Medications No information available. Medications Administered No information available. Allergies, Adverse Reactions, Alerts No information available. Results No information available. Plan of Care No information available. Procedures No information available. Vital Signs No information available. Immunizations No information available. Advance Directives No information available.
--- OUTSIDE RECORDS SUMMARY | 2025-05-09 13:32 | XMS_ITS | Clinical Summary ---
Author Organization [facility] Address [address] [place] [address] Care Team Providers Care Chemist Food Name Role Phone Farooq Lee MD Primary Care Provider [phone] Allergies No known active allergies Medications acetaminophen (Tylenol) 325 MG tablet Take 2 tablets (650 mg) by mouth every 6 (six) hours if needed. Under [place] law, monthly prescriptions (30 days) can be [...] 30 tablet 11 5 01/25/20 26 Active Immunizations Immunization Administration Dates Next Due Influenza, [...] Description 05/25/2025 8:20 AM EST Office Visit [facility] [address] [place] [address] Cheryl Browne, SAP MOBILITY ARCHITECT [address] [address] Health Maintenance Due Date Last [...] 2000 [facility]-Zoster Vaccines (1 of 2) 2000 [id number] Vaccine ( season) 2025 05/18/2023, 03/10/2022, 11/04/2021, Additional history [...] patient's age to complete this topic Insurance [facility] [address] [place] [address] Care Teams Chemist Food Relationship Specialty Start Date End Date Farooq Lee MD [address] [place] [address] PCP - General 06/22/24
--- OUTSIDE RECORDS SUMMARY | 2025-05-09 13:32 | XMS_ITS | Encounter Summary ---
Author Organization [facility] Address [address] [place] [address] Care Team Providers Care Casino Investigator Name Role Phone Farooq Lee MD Primary Care Provider [phone] Reason for Referral * Consultation (Routine) - Closed Specialty Diagnoses / Procedures Referred By Lorena campbell Referred To Contact Nephrology Diagnoses Chronic hyponatremia Sasha Lantigua MD 14[address] [facility] [address] [place] [address] Phone: tel: fax: [facility] Nephrology, Bone & Mineral Metabolism [address] [facility], [address] [place] [address] Phone: tel: fax: Referral ID Status Reason Start Date Expiration Date V isits Requested Visits Authorized [id number] Closed Specialty Services Required 05/17/2024 11/16/2025 1 1 Encounter Details Date Type Department Care Team (Latest Contact Info) Description 05/17/2024 Community Orders Community Practice [address] [place] [address] Sasha Lantigua MD [address] [facility] [address] [place] [address] Chronic hyponatremia (Primary Dx) Social [...] Office Visit [facility] [address] [facility] [address] [place] [phone] Cheryl Browne, SYSTEMS ANALYSIS MANAGER [address] [address] Scheduled Referrals Name Type Priority Associated Diagnoses Orde r Schedule Ambulatory referral to Nephrology Outpatient Referral Routine Chronic hyponatremia Expected: 05/17/2024 (Approximate), Expires: 11/15/2025 documented as of this encounter Visit Diagnoses Diagnosis Chronic hyponatremia- Primary Hyposmolality and/or hyponatremia documented in this encounter Care Teams Casino Investigator Relationship Specialty Start Date End Date Farooq Lee MD [address] [facility] [address] [place] [address] PCP - General 06/22/24 documented as of this encounter
--- NOTE | 2025-05-09 14:00 | US_ITS ---
PROCEDURE: US TRANSVAGINAL CLINICAL INDICATION: Vaginal bleeding, vaginal discharge COMPARISON: No exams were available for comparison FINDINGS: Transvaginal sonographic images of the pelvis were obtained. UTERUS: 3.3cm x 3.8 cmx 2.3cm anteverted and anteflexed with a combined endometrial thickness of 1.5mm. LEFT OVARY: 0.8 cmx0.8 cmx1.1cm with a volume of 0.4ml. RIGHT OVARY: 1.4cmx 0.9 cmx1.1cm with a volume of 0.7ml. Both ovaries are seen and appear normal. Doppler flow to both ovaries are seen. There is no fluid in the cul-de-sac. IMPRESSION: 1. Anteverted, anteflexed, small uterus. The endometrium is thin measuring 1.5 mm. 2. Both ovaries are seen and appear atrophic. 3. No fluid in the cul-de-sac. Dictated by: Leeroy Nunn MD 05/09/2025 16:34 Leeroy Nunn MD in OV 05/09/2025 16:34
== END 2025-05-09 23:59 | disposition home or self-care (01) ==
LOC: RAD 13:29
PROVIDERS: PCP Internal Medicine; Visit Provider Nurse Practitioner Obstetrics & Gynecology
DX: N85.4 Malposition of uterus (principal); N83.312 Acquired atrophy of left ovary; N83.311 Acquired atrophy of right ovary; N76.1 Subacute and chronic vaginitis; R53.83 Other fatigue; N93.9 Abnormal uterine and vaginal bleeding, unspecified
CPT/HCPCS: 76830

== ENCOUNTER 2025-05-22 11:05 | Outpatient (CLI) | payer MEDICARE, OTHER, SELFPAY ==
[2025-05-22 11:14] LABS: Microscopic, Urine URINE MICROSCOPIC (MICROSCOPIC)
[2025-05-22 11:47] LABS: Hematocrit 37.5 % (37.0-47.0); Hemoglobin 12.2 g/dL (12.2-16.2); Mean Corpuscular HGB Conc 32.5 g/dL (31.8-35.4); Mean Corpuscular Hemoglobin 29.5 pg (27.0-31.2); Mean Corpuscular Volume 90.8 fl (81-99); Nucleated Red Blood Cells % 0 %; Platelet Count 193 K/mm3 (142-424); Red Blood Count 4.13 M/mm3 (4.20-5.40); Red Cell Distribution Width-SD 41.7 fL; White Blood Count 6.3 K/mm3 (4.8-10.8)
[2025-05-22 12:11] LABS: Albumin Level 4.7 g/dl (3.5-5.0); Anion Gap 14.6 mEq/L (5-15); Blood Urea Nitrogen 18 mg/dl (7-17); Calcium 9.9 mg/dl (8.4-10.2); Carbon Dioxide 28 mmol/L (22.0-30.0); Chloride 99 mmol/L (98-107); Creatinine,Serum 1.00 mg/dl (0.52-1.04); Estimated Glomerular Filt Rate 54 ml/min (>60); GFR (African American) 65 ML/MIN (>60); Glucose 89 mg/dl (74-100); Phosphorous 4.4 mg/dl (2.5-4.5); Potassium 4.6 mmoL/L (3.5-5.1); Sodium 137 mmol/L (136-145)
[2025-05-22 12:29] LABS: 25-OH Vitamin D, Total 41.4 ng/mL (30-100)
[2025-05-22 12:45] LABS: Bilirubin,Urine Negative (Negative); Color,Urine YELLOW (Yellow); Glucose,Urine (UA) Negative (Negative); Ketones,Urine Negative (Negative); Leukocyte Esterase,Urine TRACE (Negative); PH,Urine 6.0 (5.0-8.5); Protein,Urine Negative (Negative); Specific Gravity, Urine 1.025 (1.005-1.030); Urobilinogen,Urine 0.2 EU/dl (0.2)
[2025-05-22 13:44] LABS: WBC,Urine Occasional #/hpf (0-3)
== END 2025-05-22 23:59 | disposition home or self-care (01) ==
PROVIDERS: PCP Internal Medicine; Visit Provider Nurse Practitioner
DX: N18.2 Chronic kidney disease, stage 2 (mild) (principal); E87.1 Hypo-osmolality and hyponatremia; E83.9 Disorder of mineral metabolism, unspecified; M89.9 Disorder of bone, unspecified
CPT/HCPCS: 36415; 80069; 81001; 82306; 82570; 83970; 84156; 85027